=== PATIENT | female | born 1960 | race African-American/Black ===

== ENCOUNTER → 2016-07-14 | Outpatient (CLI) | payer OTHER ==
[2016-03-03 13:55] VITALS: BP 136/98
[~2016-07-14] MED LIST: ALBU2.5V5 NEB; ALBU8.5H6 IH; ASPI-482 PO; Albuterol Sulfate NEB; BUDE10.2 IH; CYCL10TA2 PO; ESOM40CA PO; FAMO-63 PO; FLUC100T7 PO; FLUT16SP NS; FURO-69 PO; IPRA3AMP23 IH; LEVO500T38 PO; METR500T PO; MONT10TA6 PO; MULT-189 PO; NYST1000 SWSW; PANT20TA2 PO; PANT40GR PO; POTA10CA PO; PRED-220 PO; Polyethylene Glycol 3350 PO; SERT50TA PO; TIOT18CA IH
--- NOTE | 2016-07-14 13:15 | RAD ---
DATE: 07/14/16 EXAM: DIGITAL SCREEN BILAT W/CAD HISTORY: Routine screening COMPARISON: 07/12/15 This study was interpreted with the benefit of Computerized Aided Detection (CAD). TECHNIQUE: Routine CC and MLO views of both breasts are obtained. FINDINGS: The breast tissue density is [B ] . Scattered fibroglandular densities are seen. There are no dominant suspicious masses, suspicious microcalcifications or evidence of architectural distortion. Skin and nipples are intact IMPRESSION: Benign findings BI-RADS CATEGORY: 1 NEGATIVE RECOMMENDED FOLLOW-UP: 12M 12 MONTH FOLLOW-UP PQRS compliance statement: Patient information was entered into a reminder system with a target due date for the next mammogram. Mammography is a sensitive method for finding small breast cancers, but it does not detect them all and is not a substitute for careful clinical examination. A negative mammogram does not negate a clinically suspicious finding and should not result in delay in biopsying a clinically suspicious abnormality. "Our facility is accredited by the [employer] Mammography Program."
== END | disposition home or self-care (01) ==
LOC: MAMMO 08:31
PROVIDERS: ATTEND Family Medicine
DX: Z12.31 Encounter for screening mammogram for malignant neoplasm of breast (principal)
CPT/HCPCS: G0202; 77067

== ENCOUNTER → 2016-09-15 | Outpatient (CLI) | payer OTHER ==
[2016-03-03 13:55] VITALS: BP 136/98
[2016-09-15 13:26] LABS: BASO # 0.1 x10^3/uL (0.0-0.2); BASO % 1 % (0-3); EOS % 2 % (0-3); HEMATOCRIT 38.3 % (36.0-47.0); HEMOGLOBIN 12.3 g/dL (12.0-15.5); LYMPH # 2.4 x10^3/uL (1.0-4.8); LYMPH % 32 % (24-48); MEAN CORPUSCULAR HEMOGLOBIN 29 pg (25-35); MEAN CORPUSCULAR HGB CONC 32 g/dL (31-37); MEAN CORPUSCULAR VOLUME 91 fL (79-100); MONO % 11 % (0-9); NEUT % 55 % (31-73); PLATELET COUNT 225 x10^3/uL (140-400); RED BLOOD COUNT 4.23 x10^6/uL (3.50-5.40); RED CELL DISTRIBUTION WIDTH 14.4 % (11.5-14.5); WHITE BLOOD COUNT 7.5 x10^3/uL (4.0-11.0)
[2016-09-15 13:48] LABS: ALBUMIN 3.6 g/dL (3.4-5.0); ALBUMIN/GLOBULIN RATIO 0.9 (1.0-1.7); CALCIUM 9.2 mg/dL (8.5-10.1); CREATININE 0.8 mg/dL (0.6-1.0); GFR 89.1; POTASSIUM 3.6 mmol/L (3.5-5.1); TOTAL BILIRUBIN 0.2 mg/dL (0.2-1.0); TOTAL PROTEIN 7.5 g/dL (6.4-8.2)
--- NOTE | 2016-09-15 16:50 | RAD ---
Exam: PA and lateral chest radiograph History: Shortness of air, chest pain and cough for one week. Comparison: 09/11/2015. Findings: Cardiomediastinal silhouette is within normal limits for size. Bilateral lung orozco are free of focal infiltrate. No pleural effusion is seen. There is enlargement of the central pulmonary vasculature, suggesting changes of pulmonary hypertension. This is similar to previous study. Impression: 1. No acute cardiopulmonary process. 2. Suspect pulmonary hypertension.
== END | disposition home or self-care (01) ==
LOC: RAD 12:52
PROVIDERS: ATTEND Internal Medicine Pulmonary Disease
DX: R06.02 Shortness of breath (principal)
CPT/HCPCS: 36415; 71020; 80053; 85027

== ENCOUNTER → 2016-11-10 | Outpatient (CLI) | payer OTHER ==
[2016-03-03 13:55] VITALS: BP 136/98
[~2016-11-10] MED LIST changes: -NYST1000 SWSW; +NYST100054 SWSW; -POTA10CA PO; +POTASSIUM CHLO10 MEQ PO
[2016-11-10 11:21] LABS: ALBUMIN 3.6 g/dL (3.4-5.0); CREATININE 0.8 mg/dL (0.6-1.0); GFR 89.1; POTASSIUM 3.9 mmol/L (3.5-5.1); TOTAL BILIRUBIN 0.4 mg/dL (0.2-1.0); TOTAL PROTEIN 7.2 g/dL (6.4-8.2)
[2016-11-10 11:30] LABS: FREE T4 0.87 ng/dL (0.76-1.46)
== END | disposition home or self-care (01) ==
LOC: LAB 10:03
PROVIDERS: ATTEND Family Medicine
DX: R73.09 Other abnormal glucose (principal); R20.2 Paresthesia of skin; R79.89 Other specified abnormal findings of blood chemistry
CPT/HCPCS: 36415; 80053; 83036; 83735; 84439; 84443

== ENCOUNTER 2016-12-29 15:41 | Inpatient (IN) | payer OTHER ==
[~2016-12-29] VITALS: Ht 152.4 cm; Wt 69.0 kg
[~2016-12-29 15:41] MED LIST changes: -LEVO500T38 PO; +LEVO500T59 PO
--- NOTE | 2016-12-29 16:13 | PHYS DOC ---
Past Medical History Past Medical History: COPD Past Surgical History: Hysterectomy, Tonsillectomy, Other Additional Past Surgical Histo: HEART CATH,EXP SURG X4 Alcohol Use: None Drug Use: None Adult General Chief Complaint Chief Complaint: SHORTNESS OF BREATH HPI HPI Patient is a 56 year old -Citizen [place] female who presents with worsening shortness breath the last 2 weeks. She states now she gets up to walk she gets short of breath very easily. She states she has a nonproductive cough. She states that she also has nasal congestion or ear pressure. She denies any fevers or chills. She's been on oxygen 2 L at home and occasionally she raises up to 3 L when she needs it. She spoke to Dr. Carson's office who wanted her to be is seen in the ER. She denies any chest pain nausea vomiting. Review of Systems Review of Systems Constitutional: Denies fever or chills [] Eyes: Denies change in visual acuity, redness, or eye pain [] HENT: Denies nasal congestion or sore throat [] Respiratory: Denies cough, positive for shortness of breath [] Cardiovascular: No additional information not addressed in HPI [] GI: Denies abdominal pain, nausea, vomiting, bloody stools or diarrhea [] : Denies dysuria or hematuria [] Musculoskeletal: Denies back pain or joint pain [] Integument: Denies rash or skin lesions [] Neurologic: Denies headache, focal weakness or sensory changes [] Endocrine: Denies polyuria or polydipsia [] Current Medications Current Medications Current Medications Medications (Trade) Dose Ordered Sig/Umang Start Time Stop Time Status Last Admin Dose Admin Acetaminophen (Tylenol) 500 mg QID PRN 12/29/16 18:15 Albuterol/ Ipratropium (Duoneb) 3 ml RTQID 12/29/16 21:00 Aspirin (Ecotrin) 81 mg DAILY 12/30/16 09:00 Azithromycin 250 ml @ 250 mls/hr 1X ONCE 12/29/16 16:45 12/29/16 17:44 DC 12/29/16 16:48 250 MLS/HR Benzonatate (Tessalon Perle) 100 mg TID 12/29/16 21:00 Famotidine (Pepcid) 20 mg DAILY 12/30/16 09:00 Fentanyl Citrate (Fentanyl 2ml Vial) 50 mcg PRN Q2HR PRN 12/29/16 18:15 Furosemide (Lasix) 20 mg DAILY 12/30/16 09:00 Guaifenesin (Robitussin Dm) 10 ml PRN Q6HRS PRN 12/29/16 18:15 Methylprednisolone Sodium Succinate (SOLU-Medrol 40MG VIAL) 40 mg TID 12/29/16 21:00 Methylprednisolone Sodium Succinate (SOLU-Medrol 125MG VIAL) 125 mg 1X ONCE 12/29/16 16:45 12/29/16 16:46 DC 12/29/16 16:48 125 MG Montelukast Sodium (Singulair) 10 mg DAILY 12/30/16 09:00 Ondansetron HCl (Zofran) 4 mg PRN Q6HRS PRN 12/29/16 18:15 Pantoprazole Sodium (Protonix) 40 mg DAILYAC 12/30/16 07:30 Potassium Chloride (Klor-Con) 10 meq [id number] 12/30/16 08:00 Sertraline HCl (Zoloft) 50 mg DAILY 12/30/16 09:00 Allergies Allergies Allergies Coded Allergies Type Severity Reaction Last Updated Verified Penicillins Allergy Intermediate rash 03/03/16 Yes morphine Allergy Intermediate Rash-PERCOCET OK 03/03/16 Yes Physical Exam Physical Exam Constitutional: Well developed, well nourished, no acute distress, non-toxic appearance. [] HENT: Normocephalic, atraumatic, bilateral external ears normal, oropharynx moist, no oral exudates, nose normal. [] Eyes: PERRLA, EOMI, conjunctiva normal, no discharge. [] Neck: Normal range of motion, no tenderness, supple, no stridor. [] Cardiovascular:Heart rate regular rhythm, no murmur [] Lungs & Thorax: Bilateral breath sounds increased with mild expiratory wheezes bilaterally Abdomen: Bowel sounds normal, soft, no tenderness, no masses, no pulsatile masses. [] Skin: Warm, dry, no erythema, no rash. [] Back: No tenderness, no CVA tenderness. [] Extremities: No tenderness, no cyanosis, no clubbing, ROM intact, no edema. [] Neurologic: Alert and oriented X 3, normal motor function, normal sensory function, no focal deficits noted. [] Psychologic: Affect normal, judgement normal, mood normal. [] Current Patient Data Vital Signs Vital Signs Date Time Temp Pulse Resp B/P (MAP) Pulse Ox O2 Delivery O2 Flow Rate FiO2 12/29/16 16:59 96 Nasal Cannula 2.0 12/29/16 15:48 98.6 87 24 153/96 (115) 98.6 Lab Values Laboratory Tests Test 12/29/16 16:00 White Blood Count 6.3 x10^3/uL (4.0-11.0) Red Blood Count 4.35 x10^6/uL (3.50-5.40) Hemoglobin 13.0 g/dL (12.0-15.5) Hematocrit 39.6 % (36.0-47.0) Mean Corpuscular Volume 91 fL (79-100) Mean Corpuscular Hemoglobin 30 pg (25-35) Mean Corpuscular Hemoglobin Concent 33 g/dL (31-37) Red Cell Distribution Width 13.9 % (11.5-14.5) Platelet Count 247 x10^3/uL (140-400) Neutrophils (%) (Auto) 71 % (31-73) Lymphocytes (%) (Auto) 20 % (24-48) L Monocytes (%) (Auto) 8 % (0-9) Eosinophils (%) (Auto) 1 % (0-3) Basophils (%) (Auto) 1 % (0-3) Neutrophils # (Auto) 4.4 x10^3uL (1.8-7.7) Lymphocytes # (Auto) 1.3 x10^3/uL (1.0-4.8) Monocytes # (Auto) 0.5 x10^3/uL (0.0-1.1) Eosinophils # (Auto) 0.1 x10^3/uL (0.0-0.7) Basophils # (Auto) 0.0 x10^3/uL (0.0-0.2) Prothrombin Time 12.4 SEC (11.7-14.0) Prothrombin Time INR 1.0 (0.8-1.1) Sodium Level 143 mmol/L (136-145) Potassium Level 4.2 mmol/L (3.5-5.1) Chloride Level 104 mmol/L (98-107) Carbon Dioxide Level 32 mmol/L (21-32) Anion Gap 7 (6-14) Blood Urea Nitrogen 7 mg/dL (7-20) Creatinine 0.7 mg/dL (0.6-1.0) Estimated GFR (Cockcroft-Gault) 104.0 Glucose Level 103 mg/dL (70-99) H Calcium Level 9.1 mg/dL (8.5-10.1) Magnesium Level 1.9 mg/dL (1.8-2.4) Total Bilirubin 0.4 mg/dL (0.2-1.0) Direct Bilirubin 0.1 mg/dL (0.0-0.2) Aspartate Amino Transferase (AST) 38 U/L (15-37) H Alanine Aminotransferase (ALT) 29 U/L (14-59) Alkaline Phosphatase 75 U/L (46-116) Creatine Kinase 366 U/L (26-192) H Creatine Kinase MB (Mass) 4.8 ng/mL (0.0-3.6) H Creatine Kinase MB Relative Index 1.3 % (0-4) Troponin I Quantitative 0.058 ng/mL (0.000-0.055) VB-Yul-[id number]-Type Natriuretic Peptide 241 pg/mL (0-124) H Total Protein 7.6 g/dL (6.4-8.2) Albumin 3.9 g/dL (3.4-5.0) Lipase 370 U/L (73-393) Thyroid Stimulating Hormone (TSH) 0.555 uIU/mL (0.358-3.74) Laboratory Tests 12/29/16 16:00 Laboratory Tests 12/29/16 16:00 EKG EKG EKG shows sinus rhythm with a rate of 82 bpm, left axis deviation, no ST elevations appreciated, or T-wave inversions, QTC 438 ms, as interpreted by me. Radiology/Procedures Radiology/Procedures [facility] [address] [place] [address] IMAGING REPORT Signed PATIENT: EDDI QUEZADA ACCOUNT: [id number] : 1960 LOCATION: ER AGE: 56 SEX: F EXAM STATUS: REG ER ORD. PHYSICIAN: FABRIZIO GRIFFIN MD REASON: soa PROCEDURE: PORTABLE CHEST 1V INDICATION: soa COMPARISON: 09/15/2016 FINDINGS: Single view of chest obtained. No definite focal airspace consolidation. There is repeat demonstration of enlargement of the bilateral pulmonary hilum. Calcific atherosclerosis. IMPRESSION: No definite focal airspace consolidation. Repeat demonstration of enlargement of the bilateral pulmonary hilum. Correlate for possible causes such as pulmonary artery hypertension. DICTATED and SIGNED BY: GERGORIO BELLA MD DATE: 12/29/16 [id number] CC: FABRIZIO GRIFFIN MD; CIERRA ORTEGA MD ~ Impressions: COPD exacerbation Elevated troponin Course & Med Decision Making Course & Med Decision Making Pertinent Labs and Imaging studies reviewed. (See chart for details) Patient comes in with worsening dyspnea on exertion, she denies any chest pain, chest x-ray labs are nonacute except for her troponin being slightly elevated. She is received aspirin, Solu-Medrol, azithromycin and DuoNeb nebs. She's being admitted to hospitalists with consults to palm and etiology of which I spoke to both of them. She is in stable condition at this time. Dragon Disclaimer Dragon Disclaimer This electronic medical record was generated, in whole or in part, using a voice recognition dictation system. Departure Departure Impression: Primary Impression: COPD exacerbation Additional Impression: Elevated troponin Disposition: ADMITTED INPATIENT Admitting Physician: Rachael Salas Condition: STABLE Referrals: CIERRA ORTEGA MD (PCP) Problem Qualifiers FABRIZIO GRIFFIN MD Dec 29, 2016 16:12
[2016-12-29 16:30] LABS: BASO % 1 % (0-3); EOS % 1 % (0-3); HEMATOCRIT 39.6 % (36.0-47.0); LYMPH # 1.3 x10^3/uL (1.0-4.8); LYMPH % 20 % (24-48); MEAN CORPUSCULAR HEMOGLOBIN 30 pg (25-35); MEAN CORPUSCULAR HGB CONC 33 g/dL (31-37); MEAN CORPUSCULAR VOLUME 91 fL (79-100); MONO % 8 % (0-9); NEUT % 71 % (31-73); PLATELET COUNT 247 x10^3/uL (140-400); RED BLOOD COUNT 4.35 x10^6/uL (3.50-5.40); RED CELL DISTRIBUTION WIDTH 13.9 % (11.5-14.5); WHITE BLOOD COUNT 6.3 x10^3/uL (4.0-11.0)
--- NOTE | 2016-12-29 16:35 | RAD ---
INDICATION: soa COMPARISON: 09/15/2016 FINDINGS: Single view of chest obtained. No definite focal airspace consolidation. There is repeat demonstration of enlargement of the bilateral pulmonary hilum. Calcific atherosclerosis. IMPRESSION: No definite focal airspace consolidation. Repeat demonstration of enlargement of the bilateral pulmonary hilum. Correlate for possible causes such as pulmonary artery hypertension.
[2016-12-29 16:40] LABS: PROTHROMBIN TIME PATIENT 12.4 SEC (11.7-14.0)
[2016-12-29 16:44] LABS: CALCIUM 9.1 mg/dL (8.5-10.1); CREATININE 0.7 mg/dL (0.6-1.0); POTASSIUM 4.2 mmol/L (3.5-5.1)
[2016-12-29] MEDS ORDERED: AZITHRMYCN 500MG IVPB FOR OMNI 250 ML IV ONE (16:45)
[2016-12-29] MEDS ORDERED: methylPREDNISolone SOD SUCC PF 125 MG/2 ML VIAL. IV ONE (16:45)
[2016-12-29] MEDS ORDERED: IPRATRPIUM/ALBUTEROL 0.5/2.5MG 3 ML NEBU. NEB ONE (16:45)
[2016-12-29 17:00] LABS: CKMB MASS 4.8 ng/mL (0.0-3.6)
--- NOTE | 2016-12-29 17:13 | EKG ---
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
[2016-12-29 17:53] LABS: ALBUMIN 3.9 g/dL (3.4-5.0); DIRECT BILIRUBIN 0.1 mg/dL (0.0-0.2); MAGNESIUM 1.9 mg/dL (1.8-2.4); TOTAL BILIRUBIN 0.4 mg/dL (0.2-1.0); TOTAL PROTEIN 7.6 g/dL (6.4-8.2)
--- NOTE | 2016-12-29 18:05 | PDOC1 ---
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 She motions in her throat/chest area. Trops 0.05. COPD is rather advanced, known to our practice, cardiac cath back then showed no CAD. CXR shows enhanced PA knob, we see in PAH pts which I suspect she has from her advanced COPD, CXR neg for infiltrates, wheezing appreciable, got solu, steroids and azithromycin. Admitted henceforth. Claims compliance to home inhalers, not skipping a dose. Past Medical History Cardiovascular: HTN Pulmonary: Bronchitis, COPD Psych: Depression Past Surgical History Past Surgical History: Other ([facility]) Family History Family History: Hypertension Social History Smoke: Quit ALCOHOL: none Drugs: None Current Medications Current Medications Current Medications Albuterol/ Ipratropium (Duoneb) 3 ml 1X ONCE NEB Last administered on 16:57; Start 12/29/16 at 16:45; Stop 12/29/16 at 16:46; Status DC Azithromycin 250 ml @ 250 mls/hr 1X ONCE IV Last administered on 12/29/16 16 :48; Start 12/29/16 at 16:45; Stop 12/29/16 at 17:44; Status DC Methylprednisolone Sodium Succinate (SOLU-Medrol 125MG VIAL) 125 mg 1X ONCE IV Last administered on 12/29/16 16:48; Start 12/29/16 at 16:45; Stop 12/29/16 at 16:46; Status DC Active Scripts Active Potassium Chloride 10 Meq Capsule.er 1 Cap PO DAILY Diflucan (Fluconazole) 100 Mg Tablet 200 Mg PO DAILY Fluticasone Propionate Nasal Cass (Fluticasone Propionate) 1 Cass Cass 2 Cass NS DAILY Nystatin 5 Ml Oral.susp 5 Ml SWSW [id number] 7 Days Prednisone 10 Mg Tablet 10 Mg PO DAILY 4 by mouth daily for 3 days then 3 by mouth daily for 3 days then 2 by mouth daily for 3 days then 1 by mouth daily for 3 days Zoloft (Sertraline Hcl) 50 Mg Tablet 50 Mg PO DAILY Reported Albuterol Sulfate Neb Soln (Albuterol Sulfate) 2.5 Mg/3 Ml Vial.neb 2.5 Mg NEB Q4HRS PRN Nexium Capsule (Esomeprazole Magnesium) 40 Mg Capsule.dr 40 Mg PO DAILYAC Singulair Tablet (Montelukast Sodium) 10 Mg Tablet 1 Tab PO DAILY Lasix (Furosemide) 20 Mg Tablet 1 Tab PO DAILY Symbicort 160-4.5 Mcg Inhaler (Budesonide/Formoterol Fumarate) 10.2 Gm Hfa.aer.ad 10.2 Gm IH BID Albuterol Sulfate Hfa Inhaler (Albuterol Sulfate) 8.5 Gm Hfa.aer.ad 8.5 Gm IH PRN Duoneb 0.5 Mg-3 Mg/3 Ml Soln (Ipratropium/Albuterol Sulfate) 3 Ml Ampul.neb 3 Ml IH QID Aspir 81 (Aspirin) 81 Mg Tablet. 81 Mg PO DAILY Allergies Allergies: Coded Allergies: Penicillins (Verified Allergy, Intermediate, rash, 03/03/16) morphine (Verified Allergy, Intermediate, Rash-PERCOCET OK, 03/03/16) ROS Review of System as per HPI,. all else 14 pt reviewed, neg Physical Exam General: Alert, Oriented X3, Cooperative, No acute distress HEENT: Atraumatic, PERRLA Lungs: Normal air movement, Other (wheezing bilateral, anterior and posterior, normal air entry) Heart: S1S2, RRR, no thrills, no rubs Cardiovascular: S1, S2 Breasts: Normal Abdomen: Normal bowel sounds, Soft, No tenderness, No hepatosplenomegaly, No masses Male Genitals Exam: normal genitalia, normal prostate Rectal Exam: not examined PELVIC: Nml ext genitalia Extremities: No clubbing, No cyanosis, No edema, Normal pulses, No tenderness/ swelling Skin: No rashes, No breakdown, No significant lesion Neuro: Normal gait, Normal speech, Strength at 5/5 X4 ext, Normal tone, Sensation intact, Cranial nerves 3-12 NL, Reflexes 2+ Psych/Mental Status: Mental status NL, Mood NL Vitals Vitals Vital Signs Date Time Temp Pulse Resp B/P (MAP) Pulse Ox O2 Delivery O2 Flow Rate FiO2 12/29/16 16:59 96 Nasal Cannula 2.0 12/29/16 15:48 98.6 87 24 153/96 (115) 98.6 Labs Labs Laboratory Tests Test 12/29/16 16:00 White Blood Count 6.3 x10^3/uL (4.0-11.0) Red Blood Count 4.35 x10^6/uL (3.50-5.40) Hemoglobin 13.0 g/dL (12.0-15.5) Hematocrit 39.6 % (36.0-47.0) Mean Corpuscular Volume 91 fL (79-100) Mean Corpuscular Hemoglobin 30 pg (25-35) Mean Corpuscular Hemoglobin Concent 33 g/dL (31-37) Red Cell Distribution Width 13.9 % (11.5-14.5) Platelet Count 247 x10^3/uL (140-400) Neutrophils (%) (Auto) 71 % (31-73) Lymphocytes (%) (Auto) 20 % (24-48) Monocytes (%) (Auto) 8 % (0-9) Eosinophils (%) (Auto) 1 % (0-3) Basophils (%) (Auto) 1 % (0-3) Neutrophils # (Auto) 4.4 x10^3uL (1.8-7.7) Lymphocytes # (Auto) 1.3 x10^3/uL (1.0-4.8) Monocytes # (Auto) 0.5 x10^3/uL (0.0-1.1) Eosinophils # (Auto) 0.1 x10^3/uL (0.0-0.7) Basophils # (Auto) 0.0 x10^3/uL (0.0-0.2) Prothrombin Time 12.4 SEC (11.7-14.0) Prothromb Time International Ratio 1.0 (0.8-1.1) Sodium Level 143 mmol/L (136-145) Potassium Level 4.2 mmol/L (3.5-5.1) Chloride Level 104 mmol/L (98-107) Carbon Dioxide Level 32 mmol/L (21-32) Anion Gap 7 (6-14) Blood Urea Nitrogen 7 mg/dL (7-20) Creatinine 0.7 mg/dL (0.6-1.0) Estimated GFR (Cockcroft-Gault) 104.0 Glucose Level 103 mg/dL (70-99) Calcium Level 9.1 mg/dL (8.5-10.1) Magnesium Level 1.9 mg/dL (1.8-2.4) Total Bilirubin 0.4 mg/dL (0.2-1.0) Direct Bilirubin 0.1 mg/dL (0.0-0.2) Aspartate Amino Transf (AST/SGOT) 38 U/L (15-37) Alanine Aminotransferase (ALT/SGPT) 29 U/L (14-59) Alkaline Phosphatase 75 U/L (46-116) Creatine Kinase 366 U/L (26-192) Creatine Kinase MB (Mass) 4.8 ng/mL (0.0-3.6) Creatine Kinase MB Relative Index 1.3 % (0-4) Troponin I Quantitative 0.058 ng/mL (0.000-0.055) [id number]-Type Natriuretic Peptide 241 pg/mL (0-124) Total Protein 7.6 g/dL (6.4-8.2) Albumin 3.9 g/dL (3.4-5.0) Lipase 370 U/L (73-393) Thyroid Stimulating Hormone (TSH) 0.555 uIU/mL (0.358-3.74) Laboratory Tests Test 12/29/16 16:00 White Blood Count 6.3 x10^3/uL (4.0-11.0) Red Blood Count 4.35 x10^6/uL (3.50-5.40) Hemoglobin 13.0 g/dL (12.0-15.5) Hematocrit 39.6 % (36.0-47.0) Mean Corpuscular Volume 91 fL (79-100) Mean Corpuscular Hemoglobin 30 pg (25-35) Mean Corpuscular Hemoglobin Concent 33 g/dL (31-37) Red Cell Distribution Width 13.9 % (11.5-14.5) Platelet Count 247 x10^3/uL (140-400) Neutrophils (%) (Auto) 71 % (31-73) Lymphocytes (%) (Auto) 20 % (24-48) Monocytes (%) (Auto) 8 % (0-9) Eosinophils (%) (Auto) 1 % (0-3) Basophils (%) (Auto) 1 % (0-3) Neutrophils # (Auto) 4.4 x10^3uL (1.8-7.7) Lymphocytes # (Auto) 1.3 x10^3/uL (1.0-4.8) Monocytes # (Auto) 0.5 x10^3/uL (0.0-1.1) Eosinophils # (Auto) 0.1 x10^3/uL (0.0-0.7) Basophils # (Auto) 0.0 x10^3/uL (0.0-0.2) Prothrombin Time 12.4 SEC (11.7-14.0) Prothromb Time International Ratio 1.0 (0.8-1.1) Sodium Level 143 mmol/L (136-145) Potassium Level 4.2 mmol/L (3.5-5.1) Chloride Level 104 mmol/L (98-107) Carbon Dioxide Level 32 mmol/L (21-32) Anion Gap 7 (6-14) Blood Urea Nitrogen 7 mg/dL (7-20) Creatinine 0.7 mg/dL (0.6-1.0) Estimated GFR (Cockcroft-Gault) 104.0 Glucose Level 103 mg/dL (70-99) Calcium Level 9.1 mg/dL (8.5-10.1) Magnesium Level 1.9 mg/dL (1.8-2.4) Total Bilirubin 0.4 mg/dL (0.2-1.0) Direct Bilirubin 0.1 mg/dL (0.0-0.2) Aspartate Amino Transf (AST/SGOT) 38 U/L (15-37) Alanine Aminotransferase (ALT/SGPT) 29 U/L (14-59) Alkaline Phosphatase 75 U/L (46-116) Creatine Kinase 366 U/L (26-192) Creatine Kinase MB (Mass) 4.8 ng/mL (0.0-3.6) Creatine Kinase MB Relative Index 1.3 % (0-4) Troponin I Quantitative 0.058 ng/mL (0.000-0.055) CF-Jlf-F-Type Natriuretic Peptide 241 pg/mL (0-124) Total Protein 7.6 g/dL (6.4-8.2) Albumin 3.9 g/dL (3.4-5.0) Lipase 370 U/L (73-393) Thyroid Stimulating Hormone (TSH) 0.555 uIU/mL (0.358-3.74) VTE Prophylaxis Ordered VTE Prophylaxis Devices: Yes VTE Pharmacological Prophylaxi: Yes Assessment/Plan Assessment/Plan 1. Acute COPD exacerbation, severe 2. Acute bronchitis in an ex smoker 3. Pulmonary arterial HTN sec to above 4. Trop leak 5. Depression NOS 6. Dysphagia PLAN: Admit 2 MN NEbs, cough med, pulmo consult, steroids, empiric antibiotics? TRend trop CArds consult Will consult GI re dysphagia sxs - had egd yrs ago with Criss George, maybe gastritis/esophagitis - Seen at ER SUE MARINO MD Dec 29, 2016 18:05
[2016-12-29] MEDS ORDERED: ONDANSETRON PF 4 MG/2 ML VIAL. IV PRN ×2 (18:15→18:30)
[2016-12-29] MEDS ORDERED: fentaNYL PF VIAL 100 MCG/2 ML VIAL IV PRN (18:15)
[2016-12-29] MEDS ORDERED: ALBUTEROL SULFATE 2.5 MG/3 ML NEBU. NEB PRN (18:30)
[2016-12-29 18:58] LABS: BARBITURATES NEG (NEG); BENZODIAZEPINES NEG (NEG); CANNABINOIDS NEG (NEG); COCAINE NEG (NEG); METHADONE NEG (NEG); OPIATES NEG (NEG); PHENCYCLIDINE NEG (NEG)
[2016-12-29 19:00] VITALS: BP 138/91
[2016-12-29] MEDS ORDERED: ASPIRIN 325 MG TABLET PO ONE (19:45)
[2016-12-29] MEDS: methylPREDNISolone SOD SUCC PF 40 MG/ML VIAL. IV SCH (20:45)
[2016-12-29] MEDS: BENZONATATE 100 MG CAPSULE. PO SCH (20:45)
[2016-12-29] MEDS: IPRATRPIUM/ALBUTEROL 0.5/2.5MG 3 ML NEBU. NEB SCH (20:55)
--- NOTE | 2016-12-29 23:00 | ACF ---
Admission Forms Criteria COPD Clinical Indications for Admission to Inpatient Care (Place 'X' for any and all applicable criteria): Admission is indicated for ANY ONE of the following (1)(2)(3): [X]I. Acute exacerbation by high-risk comorbidity (e.g., pneumonia, dysrhythmia, heart failure, pleural effusion, pneumothorax) or severe underlying COPD (e.g., steroid dependent) [ ]II. Inpatient admission required rather than observation care (see Chronic Obstructive Pulmonary Disease: Observation Care) because of ANY ONE of the following: [ ]a) New or pre-existing signs or symptoms of COPD (eg, dyspnea or Tachypnea at rest or with minimal activity) that persist despite outpatient and observation care treatment [ ]b) New-onset hypoxemia (room air SaO2 less than 90%, PO2 less than 60 mm Hg (8.0 kPa)) that persists despite outpatient and observation care treatment [ ]c) Worsening of pre-existing hypoxemia (eg, new or increased requirement for supplemental oxygen to maintain oxygenation at baseline level) that persists despite outpatient and observation care treatment, with oxygen treatment needs performable only in acute inpatient setting [ ]d) Hypercarbia (PCO2 greater than 40 mm Hg (5.3 kPa))-induced respiratory acidosis (pH less than 7.35) that persists despite outpatient and observation care treatment [ ]e) Supplemental oxygen or respiratory treatments for over 24 hours that are performable only in acute inpatient setting [ ]f) Chest tube placement with active evacuation (e.g., suction, drainage) (5) [ ]g) Other condition, treatment or monitoring requiring inpatient admission [ ]III. Planned invasive surgical or diagnostic procedures requiring acute- care hospitalization [ ]IV. Acute respiratory failure (e.g., uncompensated hypercarbia, severe hypoxemia) [ ]V. Severe comorbid condition (e.g., severe steroid myopathy, acute vertebral fracture) that has acutely worsened pulmonary function [ ]. Confusion state, lethargy, obtundation, stupor or coma Extended stay beyond goal length of stay may be needed for (31)(32): [ ]a ) Respiratory Failure. [ ]b) Severe or persisting hypoxemia or hypercarbia [ ]c) Severe or persistent dyspnea [ ]d) Comorbidities (e.g. chronic heart failure, atrial fibrillation with rapid response, pneumonia) [ ]e) Malnutrition The original [facility] content created by [facility] has been revised. The portions of the content which have been revised are identified through the use of italic text or in bold, and [facility] has neither reviewed nor approved the modified material. All other unmodified content is copyright [facility]. Please see references footnoted in the original [facility] edition 2016 Admission Criteria Met?: Yes FRANKY JOHNSON Dec 29, 2016 23:00
[2016-12-29 23:30] VITALS: BP 134/80
[2016-12-30] MEDS: guaiFENesin DM 200MG/20MG 10 ML SYRUP PO PRN ×2 (00:05→17:15)
[2016-12-30 02:41] LABS: BASO % 0 % (0-3); EOS % 0 % (0-3); HEMATOCRIT 37.2 % (36.0-47.0); HEMOGLOBIN 12.1 g/dL (12.0-15.5); LYMPH # 0.7 x10^3/uL (1.0-4.8); LYMPH % 15 % (24-48); MEAN CORPUSCULAR HEMOGLOBIN 30 pg (25-35); MEAN CORPUSCULAR HGB CONC 33 g/dL (31-37); MEAN CORPUSCULAR VOLUME 91 fL (79-100); MONO % 2 % (0-9); NEUT % 83 % (31-73); PLATELET COUNT 221 x10^3/uL (140-400); RED BLOOD COUNT 4.07 x10^6/uL (3.50-5.40); RED CELL DISTRIBUTION WIDTH 13.7 % (11.5-14.5); WHITE BLOOD COUNT 4.7 x10^3/uL (4.0-11.0)
[2016-12-30 02:55] LABS: CALCIUM 8.7 mg/dL (8.5-10.1); CREATININE 0.8 mg/dL (0.6-1.0); GFR 89.1; POTASSIUM 4.4 mmol/L (3.5-5.1)
[2016-12-30 03:15] VITALS: BP 141/94
[2016-12-30 07:00] VITALS: BP 159/99
--- NOTE | 2016-12-30 07:26 | PDOC2 ---
CONSULT Date of Consult Date of Consult DATE: 12/30/16 TIME: 07:23 Past Medical History Cardiovascular: HTN Pulmonary: Bronchitis, COPD Psych: Depression Past Surgical History Past Surgical History: Other ([facility] -clean) Family History Family History: Hypertension Social History Quit ALCOHOL: none Drugs: None Current Problem List Problem List Problems Medical Problems: (1) Elevated troponin Status: Acute Current Medications Current Medications Current Medications Albuterol/ Ipratropium (Duoneb) 3 ml 1X ONCE NEB Last administered on 16:57; Start 12/29/16 at 16:45; Stop 12/29/16 at 16:46; Status DC Azithromycin 250 ml @ 250 mls/hr 1X ONCE IV Last administered on 12/29/16 16 :48; Start 12/29/16 at 16:45; Stop 12/29/16 at 17:44; Status DC Methylprednisolone Sodium Succinate (SOLU-Medrol 125MG VIAL) 125 mg 1X ONCE IV Last administered on 12/29/16 16:48; Start 12/29/16 at 16:45; Stop 12/29/16 at 16:46; Status DC Aspirin (Ecotrin) 81 mg DAILY PO ; Start 12/30/16 at 09:00 Furosemide (Lasix) 20 mg DAILY PO ; Start 12/30/16 at 09:00 Montelukast Sodium (Singulair) 10 mg DAILY PO ; Start 12/30/16 at 09:00 Sertraline HCl (Zoloft) 50 mg DAILY PO ; Start 12/30/16 at 09:00 Pantoprazole Sodium (Protonix) 40 mg DAILYAC PO ; Start 12/30/16 at 07:30 Potassium Chloride (Klor-Con) 10 meq DAILYWBKFT PO ; Start 12/30/16 at 08:00 Benzonatate (Tessalon Perle) 100 mg TID PO Last administered on 12/29/16 20:45 ; Start 12/29/16 at 21:00 Guaifenesin (Robitussin Dm) 10 ml PRN Q6HRS PRN PO COUGH Last administered on 00:05; Start 12/29/16 at 18:15 Methylprednisolone Sodium Succinate (SOLU-Medrol 40MG VIAL) 40 mg TID IV Last administered on 12/29/16 20:45; Start 12/29/16 at 21:00 Albuterol/ Ipratropium (Duoneb) 3 ml RTQID NEB Last administered on 12/29/16t 20:55; Start 12/29/16 at 21:00 Famotidine (Pepcid) 20 mg DAILY PO ; Start 12/30/16 at 09:00 Fentanyl Citrate (Fentanyl 2ml Vial) 50 mcg PRN Q2HR PRN IV pain; Start at 18:15 Ondansetron HCl (Zofran) 4 mg PRN Q6HRS PRN IV NAUSEA/VOMITING; Start 12/29/16 at 18:15 Acetaminophen (Tylenol) 500 mg QID PRN PO pain; Start 12/29/16 at 18:15 Ondansetron HCl (Zofran) 4 mg PRN Q8HRS PRN IV NAUSEA/VOMITING; Start 12/29/16 at 18:30; Stop 12/30/16 at 18:29 Albuterol Sulfate (Ventolin Neb Soln) 2.5 mg PRN Q6HRS PRN NEB SOA; Start 12/29 at 18:30 Aspirin (Kamala Aspirin) 325 mg 1X ONCE PO Last administered on 12/29/16 20:45 ; Start 12/29/16 at 19:45; Stop 12/29/16 at 19:46; Status DC Active Scripts Active Potassium Chloride 10 Meq Capsule.er 1 Cap PO DAILY Diflucan (Fluconazole) 100 Mg Tablet 200 Mg PO DAILY Fluticasone Propionate Nasal [place] (Fluticasone Propionate) 1 [place] 2 [place] NS DAILY Nystatin 5 Ml Oral.susp 5 Ml SWSW [id number] 7 Days Prednisone 10 Mg Tablet 10 Mg PO DAILY 4 by mouth daily for 3 days then 3 by mouth daily for 3 days then 2 by mouth daily for 3 days then 1 by mouth daily for 3 days Zoloft (Sertraline Hcl) 50 Mg Tablet 50 Mg PO DAILY Reported Albuterol Sulfate Neb Soln (Albuterol Sulfate) 2.5 Mg/3 Ml Vial.neb 2.5 Mg NEB Q4HRS PRN Nexium Capsule (Esomeprazole Magnesium) 40 Mg Capsule.dr 40 Mg PO DAILYAC Singulair Tablet (Montelukast Sodium) 10 Mg Tablet 1 Tab PO DAILY Lasix (Furosemide) 20 Mg Tablet 1 Tab PO DAILY Symbicort 160-4.5 Mcg Inhaler (Budesonide/Formoterol Fumarate) 10.2 Gm Hfa.aer.ad 10.2 Gm IH BID Albuterol Sulfate Hfa Inhaler (Albuterol Sulfate) 8.5 Gm Hfa.aer.ad 8.5 Gm IH PRN Duoneb 0.5 Mg-3 Mg/3 Ml Soln (Ipratropium/Albuterol Sulfate) 3 Ml Ampul.neb 3 Ml IH QID Aspir 81 (Aspirin) 81 Mg Tablet.dr 81 Mg PO DAILY Allergies Allergies: Coded Allergies: Penicillins (Verified Allergy, Intermediate, rash, 03/03/16) morphine (Verified Allergy, Intermediate, Rash-PERCOCET [place], 03/03/16) Vitals VITALS Vital Signs Date Time Temp Pulse Resp B/P (MAP) Pulse Ox O2 Delivery O2 Flow Rate FiO2 12/30/16 03:15 98.3 93 20 141/94 (110) 99 Nasal Cannula 3.0 98.3 Labs Labs Laboratory Tests Test 12/29/16 16:00 12/29/16 18:45 12/30/16 00:50 12/30/16 02:00 White Blood Count 6.3 x10^3/uL (4.0-11.0) 4.7 x10^3/uL (4.0-11.0) Red Blood Count 4.35 x10^6/uL (3.50-5.40) 4.07 x10^6/uL (3.50-5.40) Hemoglobin 13.0 g/dL (12.0-15.5) 12.1 g/dL (12.0-15.5) Hematocrit 39.6 % (36.0-47.0) 37.2 % (36.0-47.0) Mean Corpuscular Volume 91 fL (79-100) 91 fL (79-100) Mean Corpuscular Hemoglobin 30 pg (25-35) 30 pg (25-35) Mean Corpuscular Hemoglobin Concent 33 g/dL (31-37) 33 g/dL (31-37) Red Cell Distribution Width 13.9 % (11.5-14.5) 13.7 % (11.5-14.5) Platelet Count 247 x10^3/uL (140-400) 221 x10^3/uL (140-400) Neutrophils (%) (Auto) 71 % (31-73) 83 % (31-73) Lymphocytes (%) (Auto) 20 % (24-48) 15 % (24-48) Monocytes (%) (Auto) 8 % (0-9) 2 % (0-9) Eosinophils (%) (Auto) 1 % (0-3) 0 % (0-3) Basophils (%) (Auto) 1 % (0-3) 0 % (0-3) Neutrophils # (Auto) 4.4 x10^3uL (1.8-7.7) 3.9 x10^3uL (1.8-7.7) Lymphocytes # (Auto) 1.3 x10^3/uL (1.0-4.8) 0.7 x10^3/uL (1.0-4.8) Monocytes # (Auto) 0.5 x10^3/uL (0.0-1.1) 0.1 x10^3/uL (0.0-1.1) Eosinophils # (Auto) 0.1 x10^3/uL (0.0-0.7) 0.0 x10^3/uL (0.0-0.7) Basophils # (Auto) 0.0 x10^3/uL (0.0-0.2) 0.0 x10^3/uL (0.0-0.2) Prothrombin Time 12.4 SEC (11.7-14.0) Prothromb Time International Ratio 1.0 (0.8-1.1) Sodium Level 143 mmol/L (136-145) 144 mmol/L (136-145) Potassium Level 4.2 mmol/L (3.5-5.1) 4.4 mmol/L (3.5-5.1) Chloride Level 104 mmol/L (98-107) 106 mmol/L (98-107) Carbon Dioxide Level 32 mmol/L (21-32) 34 mmol/L (21-32) Anion Gap 7 (6-14) 4 (6-14) Blood Urea Nitrogen 7 mg/dL (7-20) 15 mg/dL (7-20) Creatinine 0.7 mg/dL (0.6-1.0) 0.8 mg/dL (0.6-1.0) Estimated GFR (Cockcroft-Gault) 104.0 89.1 Glucose Level 103 mg/dL (70-99) 181 mg/dL (70-99) Calcium Level 9.1 mg/dL (8.5-10.1) 8.7 mg/dL (8.5-10.1) Magnesium Level 1.9 mg/dL (1.8-2.4) Total Bilirubin 0.4 mg/dL (0.2-1.0) Direct Bilirubin 0.1 mg/dL (0.0-0.2) Aspartate Amino Transf (AST/SGOT) 38 U/L (15-37) Alanine Aminotransferase (ALT/SGPT) 29 U/L (14-59) Alkaline Phosphatase 75 U/L (46-116) Creatine Kinase 366 U/L (26-192) Creatine Kinase MB (Mass) 4.8 ng/mL (0.0-3.6) Creatine Kinase MB Relative Index 1.3 % (0-4) Troponin I Quantitative 0.058 ng/mL (0.000-0.055) 0.047 ng/mL (0.000-0.055) WN-Qbp-C-Type Natriuretic Peptide 241 pg/mL (0-124) Total Protein 7.6 g/dL (6.4-8.2) Albumin 3.9 g/dL (3.4-5.0) Lipase 370 U/L (73-393) Thyroid Stimulating Hormone (TSH) 0.555 uIU/mL (0.358-3.74) Urine Opiates Screen Neg (NEG) Urine Methadone Screen Neg (NEG) Urine Barbiturates Neg (NEG) Urine Phencyclidine Screen Neg (NEG) Urine Amphetamine/Methamphetamine Neg (NEG) Urine Benzodiazepines Screen Neg (NEG) Urine Cocaine Screen Neg (NEG) Urine Cannabinoids Screen Neg (NEG) Urine Ethyl Alcohol Neg (NEG) Laboratory Tests Test 12/29/16 16:00 12/29/16 18:45 12/30/16 00:50 12/30/16 02:00 White Blood Count 6.3 x10^3/uL (4.0-11.0) 4.7 x10^3/uL (4.0-11.0) Red Blood Count 4.35 x10^6/uL (3.50-5.40) 4.07 x10^6/uL (3.50-5.40) Hemoglobin 13.0 g/dL (12.0-15.5) 12.1 g/dL (12.0-15.5) Hematocrit 39.6 % (36.0-47.0) 37.2 % (36.0-47.0) Mean Corpuscular Volume 91 fL (79-100) 91 fL (79-100) Mean Corpuscular Hemoglobin 30 pg (25-35) 30 pg (25-35) Mean Corpuscular Hemoglobin Concent 33 g/dL (31-37) 33 g/dL (31-37) Red Cell Distribution Width 13.9 % (11.5-14.5) 13.7 % (11.5-14.5) Platelet Count 247 x10^3/uL (140-400) 221 x10^3/uL (140-400) Neutrophils (%) (Auto) 71 % (31-73) 83 % (31-73) Lymphocytes (%) (Auto) 20 % (24-48) 15 % (24-48) Monocytes (%) (Auto) 8 % (0-9) 2 % (0-9) Eosinophils (%) (Auto) 1 % (0-3) 0 % (0-3) Basophils (%) (Auto) 1 % (0-3) 0 % (0-3) Neutrophils # (Auto) 4.4 x10^3uL (1.8-7.7) 3.9 x10^3uL (1.8-7.7) Lymphocytes # (Auto) 1.3 x10^3/uL (1.0-4.8) 0.7 x10^3/uL (1.0-4.8) Monocytes # (Auto) 0.5 x10^3/uL (0.0-1.1) 0.1 x10^3/uL (0.0-1.1) Eosinophils # (Auto) 0.1 x10^3/uL (0.0-0.7) 0.0 x10^3/uL (0.0-0.7) Basophils # (Auto) 0.0 x10^3/uL (0.0-0.2) 0.0 x10^3/uL (0.0-0.2) Prothrombin Time 12.4 SEC (11.7-14.0) Prothromb Time International Ratio 1.0 (0.8-1.1) Sodium Level 143 mmol/L (136-145) 144 mmol/L (136-145) Potassium Level 4.2 mmol/L (3.5-5.1) 4.4 mmol/L (3.5-5.1) Chloride Level 104 mmol/L (98-107) 106 mmol/L (98-107) Carbon Dioxide Level 32 mmol/L (21-32) 34 mmol/L (21-32) Anion Gap 7 (6-14) 4 (6-14) Blood Urea Nitrogen 7 mg/dL (7-20) 15 mg/dL (7-20) Creatinine 0.7 mg/dL (0.6-1.0) 0.8 mg/dL (0.6-1.0) Estimated GFR (Cockcroft-Gault) 104.0 89.1 Glucose Level 103 mg/dL (70-99) 181 mg/dL (70-99) Calcium Level 9.1 mg/dL (8.5-10.1) 8.7 mg/dL (8.5-10.1) Magnesium Level 1.9 mg/dL (1.8-2.4) Total Bilirubin 0.4 mg/dL (0.2-1.0) Direct Bilirubin 0.1 mg/dL (0.0-0.2) Aspartate Amino Transf (AST/SGOT) 38 U/L (15-37) Alanine Aminotransferase (ALT/SGPT) 29 U/L (14-59) Alkaline Phosphatase 75 U/L (46-116) Creatine Kinase 366 U/L (26-192) Creatine Kinase MB (Mass) 4.8 ng/mL (0.0-3.6) Creatine Kinase MB Relative Index 1.3 % (0-4) Troponin I Quantitative 0.058 ng/mL (0.000-0.055) 0.047 ng/mL (0.000-0.055) MO-Esb-X-Type Natriuretic Peptide 241 pg/mL (0-124) Total Protein 7.6 g/dL (6.4-8.2) Albumin 3.9 g/dL (3.4-5.0) Lipase 370 U/L (73-393) Thyroid Stimulating Hormone (TSH) 0.555 uIU/mL (0.358-3.74) Urine Opiates Screen Neg (NEG) Urine Methadone Screen Neg (NEG) Urine Barbiturates Neg (NEG) Urine Phencyclidine Screen Neg (NEG) Urine Amphetamine/Methamphetamine Neg (NEG) Urine Benzodiazepines Screen Neg (NEG) Urine Cocaine Screen Neg (NEG) Urine Cannabinoids Screen Neg (NEG) Urine Ethyl Alcohol Neg (NEG) Assessment/Plan Assessment/Plan A/C RESP FAILURE AECOPD NON SPECIFIC BRONCHITIS ALLERGIES ELEVATED TROPONIN ANXIETY PLAN HOME OK BY ME IF CLEARED BY CARD 02 AVOID THE HEAT NEBS ALLERGIES MED ANXIETY PILLS GLENIS SCHWARTZ MD Dec 30, 2016 07:26
[2016-12-30] MEDS: IPRATRPIUM/ALBUTEROL 0.5/2.5MG 3 ML NEBU. NEB SCH ×4 (07:35→19:35)
[2016-12-30] MEDS ORDERED: DEXTROSE 50% 25 GM / 50ML DISP.SYRIN. IV PRN (09:00)
--- NOTE | 2016-12-30 09:07 | PDOC ---
PROGRESS NOTES Chief Complaint Chief Complaint COPD exacerbation ASSESSMENT AND PLAN: 1. COPD exacerbation: severe acute bronchitis. on steroids, nebs suppl O2, mucolytics, empiric azithro. Pulm consult 2. Pulmonary arterial HTN: 2/2 above 3. Elevated troponin: stable ~0.5 x2. no cardiac sx. suspect 2/2 (2.). cardiac consult 4. Hyperglycemia: no previous diagnosis. obtain HgbA1c, ISS 5. Dysphagia: GI consult 6. Depression NOS History of Present Illness History of Present Illness breathing much improved. no significant cough. Vitals Vitals Vital Signs Date Time Temp Pulse Resp B/P (MAP) Pulse Ox O2 Delivery O2 Flow Rate FiO2 12/30/16 07:37 97 Nasal Cannula 3.0 12/30/16 07:00 97.8 103 22 159/99 (119) 97.8 Physical Exam General: Alert, Oriented X3, Cooperative, No acute distress Heart: Regular rate Lungs: Other (occas wheeze) Abdomen: Normal bowel sounds, Soft, No tenderness, No hepatosplenomegaly, No masses Extremities: No clubbing, No cyanosis, No edema, Normal pulses, No tenderness/ swelling Skin: No rashes, No breakdown, No significant lesion Labs LABS Laboratory Tests Test 12/29/16 16:00 12/29/16 18:45 12/30/16 00:50 12/30/16 02:00 White Blood Count 6.3 x10^3/uL (4.0-11.0) 4.7 x10^3/uL (4.0-11.0) Red Blood Count 4.35 x10^6/uL (3.50-5.40) 4.07 x10^6/uL (3.50-5.40) Hemoglobin 13.0 g/dL (12.0-15.5) 12.1 g/dL (12.0-15.5) Hematocrit 39.6 % (36.0-47.0) 37.2 % (36.0-47.0) Mean Corpuscular Volume 91 fL (79-100) 91 fL (79-100) Mean Corpuscular Hemoglobin 30 pg (25-35) 30 pg (25-35) Mean Corpuscular Hemoglobin Concent 33 g/dL (31-37) 33 g/dL (31-37) Red Cell Distribution Width 13.9 % (11.5-14.5) 13.7 % (11.5-14.5) Platelet Count 247 x10^3/uL (140-400) 221 x10^3/uL (140-400) Neutrophils (%) (Auto) 71 % (31-73) 83 % (31-73) Lymphocytes (%) (Auto) 20 % (24-48) 15 % (24-48) Monocytes (%) (Auto) 8 % (0-9) 2 % (0-9) Eosinophils (%) (Auto) 1 % (0-3) 0 % (0-3) Basophils (%) (Auto) 1 % (0-3) 0 % (0-3) Neutrophils # (Auto) 4.4 x10^3uL (1.8-7.7) 3.9 x10^3uL (1.8-7.7) Lymphocytes # (Auto) 1.3 x10^3/uL (1.0-4.8) 0.7 x10^3/uL (1.0-4.8) Monocytes # (Auto) 0.5 x10^3/uL (0.0-1.1) 0.1 x10^3/uL (0.0-1.1) Eosinophils # (Auto) 0.1 x10^3/uL (0.0-0.7) 0.0 x10^3/uL (0.0-0.7) Basophils # (Auto) 0.0 x10^3/uL (0.0-0.2) 0.0 x10^3/uL (0.0-0.2) Prothrombin Time 12.4 SEC (11.7-14.0) Prothromb Time International Ratio 1.0 (0.8-1.1) Sodium Level 143 mmol/L (136-145) 144 mmol/L (136-145) Potassium Level 4.2 mmol/L (3.5-5.1) 4.4 mmol/L (3.5-5.1) Chloride Level 104 mmol/L (98-107) 106 mmol/L (98-107) Carbon Dioxide Level 32 mmol/L (21-32) 34 mmol/L (21-32) Anion Gap 7 (6-14) 4 (6-14) Blood Urea Nitrogen 7 mg/dL (7-20) 15 mg/dL (7-20) Creatinine 0.7 mg/dL (0.6-1.0) 0.8 mg/dL (0.6-1.0) Estimated GFR (Cockcroft-Gault) 104.0 89.1 Glucose Level 103 mg/dL (70-99) 181 mg/dL (70-99) Calcium Level 9.1 mg/dL (8.5-10.1) 8.7 mg/dL (8.5-10.1) Magnesium Level 1.9 mg/dL (1.8-2.4) Total Bilirubin 0.4 mg/dL (0.2-1.0) Direct Bilirubin 0.1 mg/dL (0.0-0.2) Aspartate Amino Transf (AST/SGOT) 38 U/L (15-37) Alanine Aminotransferase (ALT/SGPT) 29 U/L (14-59) Alkaline Phosphatase 75 U/L (46-116) Creatine Kinase 366 U/L (26-192) Creatine Kinase MB (Mass) 4.8 ng/mL (0.0-3.6) Creatine Kinase MB Relative Index 1.3 % (0-4) Troponin I Quantitative 0.058 ng/mL (0.000-0.055) 0.047 ng/mL (0.000-0.055) PN-Hlu-S-Type Natriuretic Peptide 241 pg/mL (0-124) Total Protein 7.6 g/dL (6.4-8.2) Albumin 3.9 g/dL (3.4-5.0) Lipase 370 U/L (73-393) Thyroid Stimulating Hormone (TSH) 0.555 uIU/mL (0.358-3.74) Urine Opiates Screen Neg (NEG) Urine Methadone Screen Neg (NEG) Urine Barbiturates Neg (NEG) Urine Phencyclidine Screen Neg (NEG) Urine Amphetamine/Methamphetamine Neg (NEG) Urine Benzodiazepines Screen Neg (NEG) Urine Cocaine Screen Neg (NEG) Urine Cannabinoids Screen Neg (NEG) Urine Ethyl Alcohol Neg (NEG) KIKA HOLCOMB MD Dec 30, 2016 09:07
[2016-12-30] MEDS: FUROSEMIDE 20 MG TABLET PO SCH (09:18)
[2016-12-30] MEDS: BENZONATATE 100 MG CAPSULE. PO SCH ×3 (09:19→20:31)
[2016-12-30] MEDS: MONTELUKAST SODIUM 10 MG TABLET. PO SCH (09:19)
[2016-12-30] MEDS: ASPIRIN ENTERIC COATED 81 MG TABLET.DR. PO SCH (09:19)
[2016-12-30] MEDS: FAMOTIDINE 20 MG TABLET. PO SCH (09:19)
[2016-12-30] MEDS: SERTRALINE 50 MG TABLET. PO SCH (09:19)
[2016-12-30] MEDS: POTASSIUM CHLORIDE 10 MEQ TABLET.ER. PO SCH (09:19)
[2016-12-30] MEDS: PANTOPRAZOLE 40 MG TABLET.DR. PO SCH (09:19)
[2016-12-30] MEDS: methylPREDNISolone SOD SUCC PF 40 MG/ML VIAL. IV SCH ×3 (09:20→20:31)
[2016-12-30] MEDS: INSULIN ASPART 300 UNITS/3 ML INSULN.PEN SQ SCH ×3 (10:16→17:00)
--- NOTE | 2016-12-30 10:57 | PDOC2 ---
GI CONSULT Reason For Consult: Dysphagia HPI: HPI: 56 y/o female admitted w/ COPD exacerbation, noted w/ elevated troponin, pulm and cardiology to see. GI asked to see re: dysphagia. She reports "swallowing hard" for ~6 months or so. Can occur daily, noted w/ solids and liquids. No regurg although "it feels like it might come up." No n/v, no abd pain, no reflux/heartburn, no diarrhea or constipation, no hematochezia or melena. Has been told she has reflux, on H2 viola and PPI daily. Note also takes prednisone, ASA, and diclofenac. GI workup at this facility as below, note barium swallow w/ tertiary contractions and reflux. Additionally has h/o diverticulitis. Per office records, h/o abdominal pain, PIPIDA w/ EF was normal in 2011. EGD [place] [address] Luis Gallagher showed grade 1 reflux esophagitis, H.pylori positive gastritis, and normal duodenum. She completed treatment for H. pylori. Colonoscopy [place] [address] Petty Coffey showed mild nonspecific erythema (biopsies unrevealing), advanced diverticular disease, adenomatous polyp, and hyperplastic polyp. PMH: PMH: HTN, COPD, pneumonia, SHANEL, GERD, diverticulitis, colon polyp, tonsillectomy, heart cath, hysterectomy FH: Family History: No pertinent hx Social History: Smoke: Quit ALCOHOL: none Drugs: None ROS: GEN: Denies fevers, chills, sweats HEENT: Denies blurred vision, sore throat CV: Denies chest pain RESP: +shortness of air, cough GI: Per HPI : Denies hematuria, dysuria ENDO: Denies weight changes NEURO: Denies confusion, dizziness MSK: Denies weakness, joint pain/swelling SKIN: Denies jaundice, pruritus Vitals: Vitals: Vital Signs Date Time Temp Pulse Resp B/P (MAP) Pulse Ox O2 Delivery O2 Flow Rate FiO2 12/30/16 07:37 97 Nasal Cannula 3.0 12/30/16 07:00 97.8 103 22 159/99 (119) 97.8 Labs: Labs: Laboratory Tests Test 12/29/16 16:00 12/29/16 18:45 12/30/16 00:50 12/30/16 02:00 White Blood Count 6.3 x10^3/uL (4.0-11.0) 4.7 x10^3/uL (4.0-11.0) Red Blood Count 4.35 x10^6/uL (3.50-5.40) 4.07 x10^6/uL (3.50-5.40) Hemoglobin 13.0 g/dL (12.0-15.5) 12.1 g/dL (12.0-15.5) Hematocrit 39.6 % (36.0-47.0) 37.2 % (36.0-47.0) Mean Corpuscular Volume 91 fL (79-100) 91 fL (79-100) Mean Corpuscular Hemoglobin 30 pg (25-35) 30 pg (25-35) Mean Corpuscular Hemoglobin Concent 33 g/dL (31-37) 33 g/dL (31-37) Red Cell Distribution Width 13.9 % (11.5-14.5) 13.7 % (11.5-14.5) Platelet Count 247 x10^3/uL (140-400) 221 x10^3/uL (140-400) Neutrophils (%) (Auto) 71 % (31-73) 83 % (31-73) Lymphocytes (%) (Auto) 20 % (24-48) 15 % (24-48) Monocytes (%) (Auto) 8 % (0-9) 2 % (0-9) Eosinophils (%) (Auto) 1 % (0-3) 0 % (0-3) Basophils (%) (Auto) 1 % (0-3) 0 % (0-3) Neutrophils # (Auto) 4.4 x10^3uL (1.8-7.7) 3.9 x10^3uL (1.8-7.7) Lymphocytes # (Auto) 1.3 x10^3/uL (1.0-4.8) 0.7 x10^3/uL (1.0-4.8) Monocytes # (Auto) 0.5 x10^3/uL (0.0-1.1) 0.1 x10^3/uL (0.0-1.1) Eosinophils # (Auto) 0.1 x10^3/uL (0.0-0.7) 0.0 x10^3/uL (0.0-0.7) Basophils # (Auto) 0.0 x10^3/uL (0.0-0.2) 0.0 x10^3/uL (0.0-0.2) Prothrombin Time 12.4 SEC (11.7-14.0) Prothromb Time International Ratio 1.0 (0.8-1.1) Sodium Level 143 mmol/L (136-145) 144 mmol/L (136-145) Potassium Level 4.2 mmol/L (3.5-5.1) 4.4 mmol/L (3.5-5.1) Chloride Level 104 mmol/L (98-107) 106 mmol/L (98-107) Carbon Dioxide Level 32 mmol/L (21-32) 34 mmol/L (21-32) Anion Gap 7 (6-14) 4 (6-14) Blood Urea Nitrogen 7 mg/dL (7-20) 15 mg/dL (7-20) Creatinine 0.7 mg/dL (0.6-1.0) 0.8 mg/dL (0.6-1.0) Estimated GFR (Cockcroft-Gault) 104.0 89.1 Glucose Level 103 mg/dL (70-99) 181 mg/dL (70-99) Calcium Level 9.1 mg/dL (8.5-10.1) 8.7 mg/dL (8.5-10.1) Magnesium Level 1.9 mg/dL (1.8-2.4) Total Bilirubin 0.4 mg/dL (0.2-1.0) Direct Bilirubin 0.1 mg/dL (0.0-0.2) Aspartate Amino Transf (AST/SGOT) 38 U/L (15-37) Alanine Aminotransferase (ALT/SGPT) 29 U/L (14-59) Alkaline Phosphatase 75 U/L (46-116) Creatine Kinase 366 U/L (26-192) Creatine Kinase MB (Mass) 4.8 ng/mL (0.0-3.6) Creatine Kinase MB Relative Index 1.3 % (0-4) Troponin I Quantitative 0.058 ng/mL (0.000-0.055) 0.047 ng/mL (0.000-0.055) XW-Xsr-Q-Type Natriuretic Peptide 241 pg/mL (0-124) Total Protein 7.6 g/dL (6.4-8.2) Albumin 3.9 g/dL (3.4-5.0) Lipase 370 U/L (73-393) Thyroid Stimulating Hormone (TSH) 0.555 uIU/mL (0.358-3.74) Urine Opiates Screen Neg (NEG) Urine Methadone Screen Neg (NEG) Urine Barbiturates Neg (NEG) Urine Phencyclidine Screen Neg (NEG) Urine Amphetamine/Methamphetamine Neg (NEG) Urine Benzodiazepines Screen Neg (NEG) Urine Cocaine Screen Neg (NEG) Urine Cannabinoids Screen Neg (NEG) Urine Ethyl Alcohol Neg (NEG) Test 12/30/16 09:05 12/30/16 09:51 Troponin I Quantitative 0.058 ng/mL (0.000-0.055) Glucose (Fingerstick) 189 mg/dL (70-99) Allergies: Coded Allergies: Penicillins (Verified Allergy, Intermediate, rash, 03/03/16) morphine (Verified Allergy, Intermediate, Rash-PERCOCET [place], 03/03/16) Medications: Current Medications Medications (Trade) Dose Ordered Sig/Umang Route PRN Reason Start Time Stop Time Status Last Admin Dose Admin Albuterol/ Ipratropium (Duoneb) 3 ml 1X ONCE NEB 12/29/16 16:45 12/29/16 16:46 DC 12/29/16 16:57 Azithromycin 250 ml @ 250 mls/hr 1X ONCE IV 12/29/16 16:45 12/29/16 17:44 DC 12/29/16 16:48 Methylprednisolone Sodium Succinate (SOLU-Medrol 125MG VIAL) 125 mg 1X ONCE IV 12/29/16 16:45 12/29/16 16:46 DC 12/29/16 16:48 Aspirin (Ecotrin) 81 mg DAILY PO 12/30/16 09:00 12/30/16 09:19 Furosemide (Lasix) 20 mg DAILY PO 12/30/16 09:00 12/30/16 09:18 Montelukast Sodium (Singulair) 10 mg DAILY PO 12/30/16 09:00 12/30/16 09:19 Sertraline HCl (Zoloft) 50 mg DAILY PO 12/30/16 09:00 12/30/16 09:19 Pantoprazole Sodium (Protonix) 40 mg DAILYAC PO 12/30/16 07:30 12/30/16 09:19 Potassium Chloride (Klor-Con) 10 meq DAILYWBKFT PO 12/30/16 08:00 12/30/16 09:19 Benzonatate (Tessalon Perle) 100 mg TID PO 12/29/16 21:00 12/30/16 09:19 Guaifenesin (Robitussin Dm) 10 ml PRN Q6HRS PRN PO COUGH 12/29/16 18:15 12/30/16 00:05 Methylprednisolone Sodium Succinate (SOLU-Medrol 40MG VIAL) 40 mg TID IV 12/29/16 21:00 12/30/16 09:20 Albuterol/ Ipratropium (Duoneb) 3 ml RTQID NEB 12/29/16 21:00 12/30/16 07:35 Famotidine (Pepcid) 20 mg DAILY PO 12/30/16 09:00 12/30/16 09:19 Aspirin (Kamala Aspirin) 325 mg 1X ONCE PO 12/29/16 19:45 12/29/16 19:46 DC 12/29/16 20:45 Insulin Aspart (NovoLOG) 0-5 UNITS TIDWMEALS SQ 12/30/16 09:30 12/30/16 10:16 Imaging: Imaging: CXR IMPRESSION: No definite focal airspace consolidation. Repeat demonstration of enlargement of the bilateral pulmonary hilum. Correlate for possible causes such as pulmonary artery hypertension. Abd US 2014 Impression: 1. Normal gallbladder without gallstones. 2. Liver within normal limits in appearance. 3. Bowel gas obscures the aorta, vena cava, pancreas and spleen. Barium Swallow 2016 Impression: Tertiary contractions with few episodes of reflux through the gastroesophageal junction. A/P CTA 2016 IMPRESSION: 1. Moderate aortoiliac calcific plaquing without evidence of high-grade stenosis. 2. 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 UGI w/ SBFT 2012 IMPRESSION: No significant upper GI or small bowel abnormality is detected. PE: GEN: NAD HEENT: Atraumatic, PERRL LUNGS: crackles, nasal cannula HEART: RRR ABD: NABS, S/ND, epigastric discomfort EXTREMITY: No edema SKIN: No rashes, no jaundice NEURO/PSYCH: A & O 3 A/P: A/P: COPD exacerbation, elevated troponin, hyperglycemia -per pulm, cardio, primary Dysphagia -h/o this, solids and liquids -barium swallow w/ tertiary contractions and reflux GERD -on H2 viola and PPI, controlled -last EGD 2014 -has epigastric tenderness on exam, h/o abd pain per office records w/ previous workup CRC screen, h/o colon polyps -last colonoscopy 2014 -- Continue workup/treatment per pulm and cardio. Dysphagia likely 2/2 presbyesophagus, unlikely EGD w/ dilation would help. Regardless, poor endoscopy candidate currently. Continue PPI, particularly w/ use of NSAID and prednisone. DENY MONTESINOS Dec 30, 2016 10:57
[2016-12-30 11:00] VITALS: BP 154/93
--- NOTE | 2016-12-30 13:56 | PDOC2 ---
CONSULT Date of Consult Date of Consult DATE: 12/30/16 TIME: 13:49 Reason for Consult Reason for Consult: Copd Exacerbation Referring Physician Referring Physician: Rachael Salas MD Identification/Chief Complaint Chief Complaint Dyspnea Problems: Source Source: Patient History of Present Illness Reason for Visit: Ms Stevens is a 56 yr old female who presents with acute exacerbation of her copd. The patient has been having progressive shortness of breath over the last two weeks, accompanied by a dry cough. She doesn't report having had any chest pain. Per patient, this is her third copd exacerbation. Currently the patient is lying comfortably in bed, with O2. Past Medical History Cardiovascular: HTN Pulmonary: Bronchitis, COPD Psych: Depression Past Surgical History Past Surgical History: Other ([facility]) Family History Family History: Hypertension Social History Quit ALCOHOL: none Drugs: None Current Problem List Problem List Problems Medical Problems: (1) Elevated troponin Status: Acute Current Medications Current Medications Current Medications Albuterol/ Ipratropium (Duoneb) 3 ml 1X ONCE NEB Last administered on 16:57; Start 12/29/16 at 16:45; Stop 12/29/16 at 16:46; Status DC Azithromycin 250 ml @ 250 mls/hr 1X ONCE IV Last administered on 12/29/16 16 :48; Start 12/29/16 at 16:45; Stop 12/29/16 at 17:44; Status DC Methylprednisolone Sodium Succinate (SOLU-Medrol 125MG VIAL) 125 mg 1X ONCE IV Last administered on 12/29/16 16:48; Start 12/29/16 at 16:45; Stop 12/29/16 at 16:46; Status DC Aspirin (Ecotrin) 81 mg DAILY PO Last administered on 12/30/16 09:19; Start at 09:00 Furosemide (Lasix) 20 mg DAILY PO Last administered on 12/30/16 09:18; Start 12/30/16 at 09:00 Montelukast Sodium (Singulair) 10 mg DAILY PO Last administered on 12/30/16 09 :19; Start 12/30/16 at 09:00 Sertraline HCl (Zoloft) 50 mg DAILY PO Last administered on 12/30/16 09:19; Start 12/30/16 at 09:00 Pantoprazole Sodium (Protonix) 40 mg DAILYAC PO Last administered on 12/30/16 09:19; Start 12/30/16 at 07:30 Potassium Chloride (Klor-Con) 10 meq DAILYWBKFT PO Last administered on 09:19; Start 12/30/16 at 08:00 Benzonatate (Tessalon Perle) 100 mg TID PO Last administered on 12/30/16 13:20 ; Start 12/29/16 at 21:00 Guaifenesin (Robitussin Dm) 10 ml PRN Q6HRS PRN PO COUGH Last administered on 00:05; Start 12/29/16 at 18:15 Methylprednisolone Sodium Succinate (SOLU-Medrol 40MG VIAL) 40 mg TID IV Last administered on 12/30/16 13:20; Start 12/29/16 at 21:00 Albuterol/ Ipratropium (Duoneb) 3 ml RTQID NEB Last administered on 12/30/16 12:00; Start 12/29/16 at 21:00 Famotidine (Pepcid) 20 mg DAILY PO Last administered on 12/30/16 09:19; Start 12/30/16 at 09:00 Fentanyl Citrate (Fentanyl 2ml Vial) 50 mcg PRN Q2HR PRN IV pain; Start at 18:15 Ondansetron HCl (Zofran) 4 mg PRN Q6HRS PRN IV NAUSEA/VOMITING; Start 12/29/16 at 18:15 Acetaminophen (Tylenol) 500 mg QID PRN PO pain; Start 12/29/16 at 18:15 Ondansetron HCl (Zofran) 4 mg PRN Q8HRS PRN IV NAUSEA/VOMITING; Start 12/29/16 at 18:30; Stop 12/30/16 at 18:29 Albuterol Sulfate (Ventolin Neb Soln) 2.5 mg PRN Q6HRS PRN NEB SOA; Start 12/29 at 18:30 Aspirin (Kamala Aspirin) 325 mg 1X ONCE PO Last administered on 12/29/16 20:45 ; Start 12/29/16 at 19:45; Stop 12/29/16 at 19:46; Status DC Insulin Aspart (NovoLOG) 0-5 UNITS TIDWMEALS SQ Last administered on 12/30/16t 10:16; Start 12/30/16 at 09:30 Dextrose (Dextrose 50%-Water Syringe) 12.5 gm PRN Q15MIN PRN IV SEE COMMENTS; Start 12/30/16 at 09:00 Active Scripts Active Potassium Chloride 10 Meq Capsule.er 1 Cap PO DAILY Diflucan (Fluconazole) 100 Mg Tablet 200 Mg PO DAILY Fluticasone Propionate Nasal [place] (Fluticasone Propionate) 1 [place] 2 [place] NS DAILY Nystatin 5 Ml Oral.susp 5 Ml SWSW [id number] Days Prednisone 10 Mg Tablet 10 Mg PO DAILY 4 by mouth daily for 3 days then 3 by mouth daily for 3 days then 2 by mouth daily for 3 days then 1 by mouth daily for 3 days Zoloft (Sertraline Hcl) 50 Mg Tablet 50 Mg PO DAILY Reported Albuterol Sulfate Neb Soln (Albuterol Sulfate) 2.5 Mg/3 Ml Vial.neb 2.5 Mg NEB Q4HRS PRN Nexium Capsule (Esomeprazole Magnesium) 40 Mg Capsule. 40 Mg PO DAILYAC Singulair Tablet (Montelukast Sodium) 10 Mg Tablet 1 Tab PO DAILY Lasix (Furosemide) 20 Mg Tablet 1 Tab PO DAILY Symbicort 160-4.5 Mcg Inhaler (Budesonide/Formoterol Fumarate) 10.2 Gm Hfa.aer.ad 10.2 Gm IH BID Albuterol Sulfate Hfa Inhaler (Albuterol Sulfate) 8.5 Gm Hfa.aer.ad 8.5 Gm IH PRN Duoneb 0.5 Mg-3 Mg/3 Ml Soln (Ipratropium/Albuterol Sulfate) 3 Ml Ampul.neb 3 Ml IH QID Aspir 81 (Aspirin) 81 Mg Tablet. 81 Mg PO DAILY Allergies Allergies: Coded Allergies: Penicillins (Verified Allergy, Intermediate, rash, 03/03/16) morphine (Verified Allergy, Intermediate, Rash-PERCOCET [place], 03/03/16) ROS Gastrointestinal: Yes Abdominal Pain (midepigastric (chronic)) Physical Exam General: Alert, No acute distress Lungs: Other (b/l expiratory wheezes) Heart: Regular rate (and rhythm), Normal S1, Normal S2 Abdomen: Other (tenderness on palpation of midepigastrium) Extremities: Normal pulses (2/4 radial b/l) Vitals VITALS Vital Signs Date Time Temp Pulse Resp B/P (MAP) Pulse Ox O2 Delivery O2 Flow Rate FiO2 12/30/16 12:00 Nasal Cannula 2.0 12/30/16 11:00 98.5 97 20 154/93 (113) 93 98.5 Labs Labs Laboratory Tests Test 12/29/16 16:00 12/29/16 18:45 12/30/16 00:50 12/30/16 02:00 White Blood Count 6.3 x10^3/uL (4.0-11.0) 4.7 x10^3/uL (4.0-11.0) Red Blood Count 4.35 x10^6/uL (3.50-5.40) 4.07 x10^6/uL (3.50-5.40) Hemoglobin 13.0 g/dL (12.0-15.5) 12.1 g/dL (12.0-15.5) Hematocrit 39.6 % (36.0-47.0) 37.2 % (36.0-47.0) Mean Corpuscular Volume 91 fL (79-100) 91 fL (79-100) Mean Corpuscular Hemoglobin 30 pg (25-35) 30 pg (25-35) Mean Corpuscular Hemoglobin Concent 33 g/dL (31-37) 33 g/dL (31-37) Red Cell Distribution Width 13.9 % (11.5-14.5) 13.7 % (11.5-14.5) Platelet Count 247 x10^3/uL (140-400) 221 x10^3/uL (140-400) Neutrophils (%) (Auto) 71 % (31-73) 83 % (31-73) Lymphocytes (%) (Auto) 20 % (24-48) 15 % (24-48) Monocytes (%) (Auto) 8 % (0-9) 2 % (0-9) Eosinophils (%) (Auto) 1 % (0-3) 0 % (0-3) Basophils (%) (Auto) 1 % (0-3) 0 % (0-3) Neutrophils # (Auto) 4.4 x10^3uL (1.8-7.7) 3.9 x10^3uL (1.8-7.7) Lymphocytes # (Auto) 1.3 x10^3/uL (1.0-4.8) 0.7 x10^3/uL (1.0-4.8) Monocytes # (Auto) 0.5 x10^3/uL (0.0-1.1) 0.1 x10^3/uL (0.0-1.1) Eosinophils # (Auto) 0.1 x10^3/uL (0.0-0.7) 0.0 x10^3/uL (0.0-0.7) Basophils # (Auto) 0.0 x10^3/uL (0.0-0.2) 0.0 x10^3/uL (0.0-0.2) Prothrombin Time 12.4 SEC (11.7-14.0) Prothromb Time International Ratio 1.0 (0.8-1.1) Sodium Level 143 mmol/L (136-145) 144 mmol/L (136-145) Potassium Level 4.2 mmol/L (3.5-5.1) 4.4 mmol/L (3.5-5.1) Chloride Level 104 mmol/L (98-107) 106 mmol/L (98-107) Carbon Dioxide Level 32 mmol/L (21-32) 34 mmol/L (21-32) Anion Gap 7 (6-14) 4 (6-14) Blood Urea Nitrogen 7 mg/dL (7-20) 15 mg/dL (7-20) Creatinine 0.7 mg/dL (0.6-1.0) 0.8 mg/dL (0.6-1.0) Estimated GFR (Cockcroft-Gault) 104.0 89.1 Glucose Level 103 mg/dL (70-99) 181 mg/dL (70-99) Calcium Level 9.1 mg/dL (8.5-10.1) 8.7 mg/dL (8.5-10.1) Magnesium Level 1.9 mg/dL (1.8-2.4) Total Bilirubin 0.4 mg/dL (0.2-1.0) Direct Bilirubin 0.1 mg/dL (0.0-0.2) Aspartate Amino Transf (AST/SGOT) 38 U/L (15-37) Alanine Aminotransferase (ALT/SGPT) 29 U/L (14-59) Alkaline Phosphatase 75 U/L (46-116) Creatine Kinase 366 U/L (26-192) Creatine Kinase MB (Mass) 4.8 ng/mL (0.0-3.6) Creatine Kinase MB Relative Index 1.3 % (0-4) Troponin I Quantitative 0.058 ng/mL (0.000-0.055) 0.047 ng/mL (0.000-0.055) DC-Uxu-V-Type Natriuretic Peptide 241 pg/mL (0-124) Total Protein 7.6 g/dL (6.4-8.2) Albumin 3.9 g/dL (3.4-5.0) Lipase 370 U/L (73-393) Thyroid Stimulating Hormone (TSH) 0.555 uIU/mL (0.358-3.74) Urine Opiates Screen Neg (NEG) Urine Methadone Screen Neg (NEG) Urine Barbiturates Neg (NEG) Urine Phencyclidine Screen Neg (NEG) Urine Amphetamine/Methamphetamine Neg (NEG) Urine Benzodiazepines Screen Neg (NEG) Urine Cocaine Screen Neg (NEG) Urine Cannabinoids Screen Neg (NEG) Urine Ethyl Alcohol Neg (NEG) Test 12/30/16 09:05 12/30/16 09:51 12/30/16 11:39 Troponin I Quantitative 0.058 ng/mL (0.000-0.055) Glucose (Fingerstick) 189 mg/dL (70-99) 113 mg/dL (70-99) Laboratory Tests Test 12/29/16 16:00 12/29/16 18:45 12/30/16 00:50 12/30/16 02:00 White Blood Count 6.3 x10^3/uL (4.0-11.0) 4.7 x10^3/uL (4.0-11.0) Red Blood Count 4.35 x10^6/uL (3.50-5.40) 4.07 x10^6/uL (3.50-5.40) Hemoglobin 13.0 g/dL (12.0-15.5) 12.1 g/dL (12.0-15.5) Hematocrit 39.6 % (36.0-47.0) 37.2 % (36.0-47.0) Mean Corpuscular Volume 91 fL (79-100) 91 fL (79-100) Mean Corpuscular Hemoglobin 30 pg (25-35) 30 pg (25-35) Mean Corpuscular Hemoglobin Concent 33 g/dL (31-37) 33 g/dL (31-37) Red Cell Distribution Width 13.9 % (11.5-14.5) 13.7 % (11.5-14.5) Platelet Count 247 x10^3/uL (140-400) 221 x10^3/uL (140-400) Neutrophils (%) (Auto) 71 % (31-73) 83 % (31-73) Lymphocytes (%) (Auto) 20 % (24-48) 15 % (24-48) Monocytes (%) (Auto) 8 % (0-9) 2 % (0-9) Eosinophils (%) (Auto) 1 % (0-3) 0 % (0-3) Basophils (%) (Auto) 1 % (0-3) 0 % (0-3) Neutrophils # (Auto) 4.4 x10^3uL (1.8-7.7) 3.9 x10^3uL (1.8-7.7) Lymphocytes # (Auto) 1.3 x10^3/uL (1.0-4.8) 0.7 x10^3/uL (1.0-4.8) Monocytes # (Auto) 0.5 x10^3/uL (0.0-1.1) 0.1 x10^3/uL (0.0-1.1) Eosinophils # (Auto) 0.1 x10^3/uL (0.0-0.7) 0.0 x10^3/uL (0.0-0.7) Basophils # (Auto) 0.0 x10^3/uL (0.0-0.2) 0.0 x10^3/uL (0.0-0.2) Prothrombin Time 12.4 SEC (11.7-14.0) Prothromb Time International Ratio 1.0 (0.8-1.1) Sodium Level 143 mmol/L (136-145) 144 mmol/L (136-145) Potassium Level 4.2 mmol/L (3.5-5.1) 4.4 mmol/L (3.5-5.1) Chloride Level 104 mmol/L (98-107) 106 mmol/L (98-107) Carbon Dioxide Level 32 mmol/L (21-32) 34 mmol/L (21-32) Anion Gap 7 (6-14) 4 (6-14) Blood Urea Nitrogen 7 mg/dL (7-20) 15 mg/dL (7-20) Creatinine 0.7 mg/dL (0.6-1.0) 0.8 mg/dL (0.6-1.0) Estimated GFR (Cockcroft-Gault) 104.0 89.1 Glucose Level 103 mg/dL (70-99) 181 mg/dL (70-99) Calcium Level 9.1 mg/dL (8.5-10.1) 8.7 mg/dL (8.5-10.1) Magnesium Level 1.9 mg/dL (1.8-2.4) Total Bilirubin 0.4 mg/dL (0.2-1.0) Direct Bilirubin 0.1 mg/dL (0.0-0.2) Aspartate Amino Transf (AST/SGOT) 38 U/L (15-37) Alanine Aminotransferase (ALT/SGPT) 29 U/L (14-59) Alkaline Phosphatase 75 U/L (46-116) Creatine Kinase 366 U/L (26-192) Creatine Kinase MB (Mass) 4.8 ng/mL (0.0-3.6) Creatine Kinase MB Relative Index 1.3 % (0-4) Troponin I Quantitative 0.058 ng/mL (0.000-0.055) 0.047 ng/mL (0.000-0.055) QS-Aob-N-Type Natriuretic Peptide 241 pg/mL (0-124) Total Protein 7.6 g/dL (6.4-8.2) Albumin 3.9 g/dL (3.4-5.0) Lipase 370 U/L (73-393) Thyroid Stimulating Hormone (TSH) 0.555 uIU/mL (0.358-3.74) Urine Opiates Screen Neg (NEG) Urine Methadone Screen Neg (NEG) Urine Barbiturates Neg (NEG) Urine Phencyclidine Screen Neg (NEG) Urine Amphetamine/Methamphetamine Neg (NEG) Urine Benzodiazepines Screen Neg (NEG) Urine Cocaine Screen Neg (NEG) Urine Cannabinoids Screen Neg (NEG) Urine Ethyl Alcohol Neg (NEG) Test 12/30/16 09:05 12/30/16 09:51 12/30/16 11:39 Troponin I Quantitative 0.058 ng/mL (0.000-0.055) Glucose (Fingerstick) 189 mg/dL (70-99) 113 mg/dL (70-99) Assessment/Plan Assessment/Plan Ms Stevens is a 56 yr old who presents with copd exacerbation 1) COPD - continue symptomatic care 2) heart ischemia - mildly elevated cardiac enzymes most likely due to insufficient oxygen to tissues due to COPD. this is ischemia of hypoxia. Thank you for allowing me to participate in the care of this patient. BING GAMBLE MD Dec 30, 2016 13:55
[2016-12-30 15:00] VITALS: BP 151/81
[2016-12-30 19:00] VITALS: BP 133/89
[2016-12-30 23:51] VITALS: BP 142/93
[2016-12-31] MEDS: ACETAMINOPHEN 500 MG TABLET PO PRN (00:16)
[2016-12-31] MEDS: guaiFENesin DM 200MG/20MG 10 ML SYRUP PO PRN ×2 (00:16→21:21)
[2016-12-31 03:00] VITALS: BP 131/89
[2016-12-31 07:00] VITALS: BP 134/78
[2016-12-31] MEDS: INSULIN ASPART 300 UNITS/3 ML INSULN.PEN SQ SCH ×3 (08:00→17:00)
[2016-12-31] MEDS: IPRATRPIUM/ALBUTEROL 0.5/2.5MG 3 ML NEBU. NEB SCH ×4 (08:15→19:38)
[2016-12-31] MEDS: FAMOTIDINE 20 MG TABLET. PO SCH (08:37)
[2016-12-31] MEDS: methylPREDNISolone SOD SUCC PF 40 MG/ML VIAL. IV SCH ×3 (08:37→21:20)
[2016-12-31] MEDS: ASPIRIN ENTERIC COATED 81 MG TABLET.DR. PO SCH (08:38)
[2016-12-31] MEDS: PANTOPRAZOLE 40 MG TABLET.DR. PO SCH (08:38)
[2016-12-31] MEDS: BENZONATATE 100 MG CAPSULE. PO SCH ×3 (08:38→21:21)
[2016-12-31] MEDS: MONTELUKAST SODIUM 10 MG TABLET. PO SCH (08:38)
[2016-12-31] MEDS: POTASSIUM CHLORIDE 10 MEQ TABLET.ER. PO SCH (08:38)
[2016-12-31] MEDS: SERTRALINE 50 MG TABLET. PO SCH (08:39)
[2016-12-31] MEDS: FUROSEMIDE 20 MG TABLET PO SCH (08:40)
--- NOTE | 2016-12-31 09:16 | PDOC ---
PROGRESS NOTES Subjective Subjective Ms Stevens continues to have some shortness of breath, with mild epigastric tenderness. She was sitting up in bed eating this AM. Objective Objective Vital Signs Date Time Temp Pulse Resp B/P (MAP) Pulse Ox O2 Delivery O2 Flow Rate FiO2 12/31/16 07:00 98.5 78 20 134/78 (96) 98 Nasal Cannula 3.0 98.5 Intake and Output 12/31/16 07:00 Intake Total 1680 ml Balance 1680 ml Intake Oral 1680 ml # Voids 9 Physical Exam Heart: Regular rate (and rhythm), Normal S1, Normal S2 Extremities: Normal pulses (2/4 radial b/l) General: Alert Lungs: Other (b/l expiratory wheezes) Assessment Assessment Ms Stevens is a 56 yr old who presents with copd exacerbation 1) COPD - continue symptomatic care 2) heart ischemia - mildly elevated cardiac enzymes most likely due to insufficient oxygen to tissues due to COPD. this is ischemia of hypoxia. Problems Medical Problems: (1) Elevated troponin Status: Acute Comment Review of Relevant I have reviewed the following items paulette (where applicable) has been applied. Labs Laboratory Tests Test 12/29/16 16:00 12/29/16 18:45 12/30/16 00:50 12/30/16 02:00 White Blood Count 6.3 x10^3/uL (4.0-11.0) 4.7 x10^3/uL (4.0-11.0) Red Blood Count 4.35 x10^6/uL (3.50-5.40) 4.07 x10^6/uL (3.50-5.40) Hemoglobin 13.0 g/dL (12.0-15.5) 12.1 g/dL (12.0-15.5) Hematocrit 39.6 % (36.0-47.0) 37.2 % (36.0-47.0) Mean Corpuscular Volume 91 fL (79-100) 91 fL (79-100) Mean Corpuscular Hemoglobin 30 pg (25-35) 30 pg (25-35) Mean Corpuscular Hemoglobin Concent 33 g/dL (31-37) 33 g/dL (31-37) Red Cell Distribution Width 13.9 % (11.5-14.5) 13.7 % (11.5-14.5) Platelet Count 247 x10^3/uL (140-400) 221 x10^3/uL (140-400) Neutrophils (%) (Auto) 71 % (31-73) 83 % (31-73) Lymphocytes (%) (Auto) 20 % (24-48) 15 % (24-48) Monocytes (%) (Auto) 8 % (0-9) 2 % (0-9) Eosinophils (%) (Auto) 1 % (0-3) 0 % (0-3) Basophils (%) (Auto) 1 % (0-3) 0 % (0-3) Neutrophils # (Auto) 4.4 x10^3uL (1.8-7.7) 3.9 x10^3uL (1.8-7.7) Lymphocytes # (Auto) 1.3 x10^3/uL (1.0-4.8) 0.7 x10^3/uL (1.0-4.8) Monocytes # (Auto) 0.5 x10^3/uL (0.0-1.1) 0.1 x10^3/uL (0.0-1.1) Eosinophils # (Auto) 0.1 x10^3/uL (0.0-0.7) 0.0 x10^3/uL (0.0-0.7) Basophils # (Auto) 0.0 x10^3/uL (0.0-0.2) 0.0 x10^3/uL (0.0-0.2) Prothrombin Time 12.4 SEC (11.7-14.0) Prothromb Time International Ratio 1.0 (0.8-1.1) Sodium Level 143 mmol/L (136-145) 144 mmol/L (136-145) Potassium Level 4.2 mmol/L (3.5-5.1) 4.4 mmol/L (3.5-5.1) Chloride Level 104 mmol/L (98-107) 106 mmol/L (98-107) Carbon Dioxide Level 32 mmol/L (21-32) 34 mmol/L (21-32) Anion Gap 7 (6-14) 4 (6-14) Blood Urea Nitrogen 7 mg/dL (7-20) 15 mg/dL (7-20) Creatinine 0.7 mg/dL (0.6-1.0) 0.8 mg/dL (0.6-1.0) Estimated GFR (Cockcroft-Gault) 104.0 89.1 Glucose Level 103 mg/dL (70-99) 181 mg/dL (70-99) Calcium Level 9.1 mg/dL (8.5-10.1) 8.7 mg/dL (8.5-10.1) Magnesium Level 1.9 mg/dL (1.8-2.4) Total Bilirubin 0.4 mg/dL (0.2-1.0) Direct Bilirubin 0.1 mg/dL (0.0-0.2) Aspartate Amino Transf (AST/SGOT) 38 U/L (15-37) Alanine Aminotransferase (ALT/SGPT) 29 U/L (14-59) Alkaline Phosphatase 75 U/L (46-116) Creatine Kinase 366 U/L (26-192) Creatine Kinase MB (Mass) 4.8 ng/mL (0.0-3.6) Creatine Kinase MB Relative Index 1.3 % (0-4) Troponin I Quantitative 0.058 ng/mL (0.000-0.055) 0.047 ng/mL (0.000-0.055) FZ-Ylf-[id number]-Type Natriuretic Peptide 241 pg/mL (0-124) Total Protein 7.6 g/dL (6.4-8.2) Albumin 3.9 g/dL (3.4-5.0) Lipase 370 U/L (73-393) Thyroid Stimulating Hormone (TSH) 0.555 uIU/mL (0.358-3.74) Urine Opiates Screen Neg (NEG) Urine Methadone Screen Neg (NEG) Urine Barbiturates Neg (NEG) Urine Phencyclidine Screen Neg (NEG) Urine Amphetamine/Methamphetamine Neg (NEG) Urine Benzodiazepines Screen Neg (NEG) Urine Cocaine Screen Neg (NEG) Urine Cannabinoids Screen Neg (NEG) Urine Ethyl Alcohol Neg (NEG) Hemoglobin A1c 5.4 % (4.8-5.6) Test 12/30/16 09:05 12/30/16 09:51 12/30/16 11:39 12/30/16 16:57 Troponin I Quantitative 0.058 ng/mL (0.000-0.055) Glucose (Fingerstick) 189 mg/dL (70-99) 113 mg/dL (70-99) 140 mg/dL (70-99) Test 12/31/16 07:28 Glucose (Fingerstick) 123 mg/dL (70-99) Laboratory Tests Test 12/30/16 09:51 12/30/16 11:39 12/30/16 16:57 12/31/16 07:28 Glucose (Fingerstick) 189 mg/dL (70-99) 113 mg/dL (70-99) 140 mg/dL (70-99) 123 mg/dL (70-99) Medications Current Medications Albuterol/ Ipratropium (Duoneb) 3 ml 1X ONCE NEB Last administered on 16:57; Start 12/29/16 at 16:45; Stop 12/29/16 at 16:46; Status DC Azithromycin 250 ml @ 250 mls/hr 1X ONCE IV Last administered on 12/29/16 16 :48; Start 12/29/16 at 16:45; Stop 12/29/16 at 17:44; Status DC Methylprednisolone Sodium Succinate (SOLU-Medrol 125MG VIAL) 125 mg 1X ONCE IV Last administered on 12/29/16 16:48; Start 12/29/16 at 16:45; Stop 12/29/16 at 16:46; Status DC Aspirin (Ecotrin) 81 mg DAILY PO Last administered on 12/31/16 08:38; Start at 09:00 Furosemide (Lasix) 20 mg DAILY PO Last administered on 12/31/16 08:40; Start 12/30/16 at 09:00 Montelukast Sodium (Singulair) 10 mg DAILY PO Last administered on 12/31/16 08 :38; Start 12/30/16 at 09:00 Sertraline HCl (Zoloft) 50 mg DAILY PO Last administered on 12/31/16 08:39; Start 12/30/16 at 09:00 Pantoprazole Sodium (Protonix) 40 mg DAILYAC PO Last administered on 12/31/16 08:38; Start 12/30/16 at 07:30 Potassium Chloride (Klor-Con) 10 meq DAILYWBKFT PO Last administered on 08:38; Start 12/30/16 at 08:00 Benzonatate (Tessalon Perle) 100 mg TID PO Last administered on 12/31/16 08:38 ; Start 12/29/16 at 21:00 Guaifenesin (Robitussin Dm) 10 ml PRN Q6HRS PRN PO COUGH Last administered on 00:16; Start 12/29/16 at 18:15 Methylprednisolone Sodium Succinate (SOLU-Medrol 40MG VIAL) 40 mg TID IV Last administered on 12/31/16 08:37; Start 12/29/16 at 21:00 Albuterol/ Ipratropium (Duoneb) 3 ml RTQID NEB Last administered on 12/30/16 19:35; Start 12/29/16 at 21:00 Famotidine (Pepcid) 20 mg DAILY PO Last administered on 12/31/16 08:37; Start 12/30/16 at 09:00 Fentanyl Citrate (Fentanyl 2ml Vial) 50 mcg PRN Q2HR PRN IV pain; Start at 18:15 Ondansetron HCl (Zofran) 4 mg PRN Q6HRS PRN IV NAUSEA/VOMITING; Start 12/29/16 at 18:15 Acetaminophen (Tylenol) 500 mg QID PRN PO pain Last administered on 12/31/16 00:16; Start 12/29/16 at 18:15 Ondansetron HCl (Zofran) 4 mg PRN Q8HRS PRN IV NAUSEA/VOMITING; Start 12/29/16 at 18:30; Stop 12/30/16 at 18:29; Status DC Albuterol Sulfate (Ventolin Neb Soln) 2.5 mg PRN Q6HRS PRN NEB SOA; Start 12/29 at 18:30 Aspirin (Kamala Aspirin) 325 mg 1X ONCE PO Last administered on 12/29/16 20:45 ; Start 12/29/16 at 19:45; Stop 12/29/16 at 19:46; Status DC Insulin Aspart (NovoLOG) 0-5 UNITS TIDWMEALS SQ Last administered on 12/30/16 10:16; Start 12/30/16 at 09:30 Dextrose (Dextrose 50%-Water Syringe) 12.5 gm PRN Q15MIN PRN IV SEE COMMENTS; Start 12/30/16 at 09:00 Active Scripts Active Potassium Chloride 10 Meq Capsule.er 1 Cap PO DAILY Diflucan (Fluconazole) 100 Mg Tablet 200 Mg PO DAILY Fluticasone Propionate Nasal [place] (Fluticasone Propionate) 1 [place] 2 [place] NS DAILY Nystatin 5 Ml Oral.susp 5 Ml SWSW [id number] 7 Days Prednisone 10 Mg Tablet 10 Mg PO DAILY 4 by mouth daily for 3 days then 3 by mouth daily for 3 days then 2 by mouth daily for 3 days then 1 by mouth daily for 3 days Zoloft (Sertraline Hcl) 50 Mg Tablet 50 Mg PO DAILY Reported Albuterol Sulfate Neb Soln (Albuterol Sulfate) 2.5 Mg/3 Ml Vial.neb 2.5 Mg NEB Q4HRS PRN Nexium Capsule (Esomeprazole Magnesium) 40 Mg Capsule.dr 40 Mg PO DAILYAC Singulair Tablet (Montelukast Sodium) 10 Mg Tablet 1 Tab PO DAILY Lasix (Furosemide) 20 Mg Tablet 1 Tab PO DAILY Symbicort 160-4.5 Mcg Inhaler (Budesonide/Formoterol Fumarate) 10.2 Gm Hfa.aer.ad 10.2 Gm IH BID Albuterol Sulfate Hfa Inhaler (Albuterol Sulfate) 8.5 Gm Hfa.aer.ad 8.5 Gm IH PRN Duoneb 0.5 Mg-3 Mg/3 Ml Soln (Ipratropium/Albuterol Sulfate) 3 Ml Ampul.neb 3 Ml IH QID Aspir 81 (Aspirin) 81 Mg Tablet.dr 81 Mg PO DAILY Vitals/I & O Vital Sign - Last 24 Hours 12/30/16 12/30/16 12/30/16 12/30/16 11:00 12:00 15:00 15:16 Temp 98.5 98.9 98.5 98.9 Pulse 97 92 Resp 20 20 B/P (MAP) 154/93 (113) 151/81 (104) Pulse Ox 93 99 O2 Delivery Nasal Cannula Nasal Cannula Nasal Cannula Nasal Cannula O2 Flow Rate 3.0 2.0 3.0 2.0 12/30/16 12/30/16 12/30/16 12/30/16 19:00 19:36 20:20 20:45 Temp 99.0 99.0 Pulse 93 Resp 18 B/P (MAP) 133/89 (104) Pulse Ox 94 96 O2 Delivery Nasal Cannula Nasal Cannula Nasal Cannula Nasal Cannula O2 Flow Rate 3.0 2.0 3.0 3.0 12/30/16 12/31/16 12/31/16 12/31/16 23:51 03:00 03:00 07:00 Temp 98.5 98.3 98.5 98.5 98.3 98.5 Pulse 68 98 78 Resp 18 18 20 B/P (MAP) 142/93 (109) 131/89 (103) 134/78 (96) Pulse Ox 97 97 98 O2 Delivery Nasal Cannula Nasal Cannula Nasal Cannula O2 Flow Rate 3.0 Intake and Output 12/30/16 12/30/16 12/31/16 15:00 23:00 07:00 Intake Total 600 ml 1080 ml Balance 600 ml 1080 ml BING GAMBLE MD Dec 31, 2016 09:15
[2016-12-31 11:00] VITALS: BP 140/95
--- NOTE | 2016-12-31 11:06 | PDOC ---
Subjective: Subjective: Breathing not better. Some LUQ pain wrapping to left flank, comes and goes. Feels no one listens re: abd pain, relates h/o "adhesions" not treated during hysterectomy. Swallowing the same. Objective: Vital Signs: Vital Signs Date Time Temp Pulse Resp B/P (MAP) Pulse Ox O2 Delivery O2 Flow Rate FiO2 12/31/16 08:00 Nasal Cannula 3.0 12/31/16 07:00 98.5 78 20 134/78 (96) 98 98.5 Labs: Laboratory Tests Test 12/30/16 11:39 12/30/16 16:57 12/31/16 07:28 Glucose (Fingerstick) 113 mg/dL 140 mg/dL 123 mg/dL PE: GEN: NAD LUNGS: tight, nasal cannula HEART: RRR ABD: epigastric to LUQ/flank NEURO/PSYCH: A & O 3, seems a little depressed A/P: COPD exacerbation -per pulm, cardio Dysphagia/presbyesophagus -solids and liquids, barium swallow 2015 w/ tertiary contractions and reflux, last EGD 2014 -on H2 viola and PPI Abd/flank pain -wonders about adhesions -- Not best endoscopy candidate w/ COPD, discussed this with her again. Re: possible adhesions and related pain, would not be good surgical candidate either. Last CT in 05/2016, not sure if repeating this would be beneficial? Continue PPI. DENY MONTESINOS Dec 31, 2016 11:06
[2016-12-31] MEDS ORDERED: SODIUM CHLORIDE 0.65% NASAL SPRAY 45ML BOTTLE. NS PRN (12:00)
[2016-12-31 15:00] VITALS: BP 124/75
--- NOTE | 2016-12-31 16:10 | PDOC ---
PULMONARY PROGRESS NOTES Subjective pt wants to go home Vitals Vital Signs Date Time Temp Pulse Resp B/P (MAP) Pulse Ox O2 Delivery O2 Flow Rate FiO2 12/31/16 15:16 Nasal Cannula 2.0 12/31/16 15:00 98.6 79 20 124/75 (91) 94 98.6 General: Alert Lungs: Other (occas wheeze) Cardiovascular: S1, S2 Abdomen: Soft, Non-tender, Other Neuro Exam: Alert Extremities: No Edema Skin: Warm Labs Laboratory Tests Test 12/29/16 18:45 12/30/16 00:50 12/30/16 02:00 12/30/16 09:05 Urine Opiates Screen Neg (NEG) Urine Methadone Screen Neg (NEG) Urine Barbiturates Neg (NEG) Urine Phencyclidine Screen Neg (NEG) Urine Amphetamine/Methamphetamine Neg (NEG) Urine Benzodiazepines Screen Neg (NEG) Urine Cocaine Screen Neg (NEG) Urine Cannabinoids Screen Neg (NEG) Urine Ethyl Alcohol Neg (NEG) Troponin I Quantitative 0.047 ng/mL (0.000-0.055) 0.058 ng/mL (0.000-0.055) White Blood Count 4.7 x10^3/uL (4.0-11.0) Red Blood Count 4.07 x10^6/uL (3.50-5.40) Hemoglobin 12.1 g/dL (12.0-15.5) Hematocrit 37.2 % (36.0-47.0) Mean Corpuscular Volume 91 fL (79-100) Mean Corpuscular Hemoglobin 30 pg (25-35) Mean Corpuscular Hemoglobin Concent 33 g/dL (31-37) Red Cell Distribution Width 13.7 % (11.5-14.5) Platelet Count 221 x10^3/uL (140-400) Neutrophils (%) (Auto) 83 % (31-73) Lymphocytes (%) (Auto) 15 % (24-48) Monocytes (%) (Auto) 2 % (0-9) Eosinophils (%) (Auto) 0 % (0-3) Basophils (%) (Auto) 0 % (0-3) Neutrophils # (Auto) 3.9 x10^3uL (1.8-7.7) Lymphocytes # (Auto) 0.7 x10^3/uL (1.0-4.8) Monocytes # (Auto) 0.1 x10^3/uL (0.0-1.1) Eosinophils # (Auto) 0.0 x10^3/uL (0.0-0.7) Basophils # (Auto) 0.0 x10^3/uL (0.0-0.2) Sodium Level 144 mmol/L (136-145) Potassium Level 4.4 mmol/L (3.5-5.1) Chloride Level 106 mmol/L (98-107) Carbon Dioxide Level 34 mmol/L (21-32) Anion Gap 4 (6-14) Blood Urea Nitrogen 15 mg/dL (7-20) Creatinine 0.8 mg/dL (0.6-1.0) Estimated GFR (Cockcroft-Gault) 89.1 Glucose Level 181 mg/dL (70-99) Hemoglobin A1c 5.4 % (4.8-5.6) Calcium Level 8.7 mg/dL (8.5-10.1) Test 12/30/16 09:51 12/30/16 11:39 12/30/16 16:57 12/31/16 07:28 Glucose (Fingerstick) 189 mg/dL (70-99) 113 mg/dL (70-99) 140 mg/dL (70-99) 123 mg/dL (70-99) Test 12/31/16 11:33 Glucose (Fingerstick) 149 mg/dL (70-99) Laboratory Tests Test 12/30/16 16:57 12/31/16 07:28 12/31/16 11:33 Glucose (Fingerstick) 140 mg/dL (70-99) 123 mg/dL (70-99) 149 mg/dL (70-99) Medications Active Scripts Medications Dose Route/Sig Max Daily Dose Days Date Category Dose Instructions Potassium Chloride 10 Meq Capsule.er 1 Cap PO DAILY 04/26/15 Rx Diflucan (Fluconazole) 100 Mg Tablet 200 Mg PO DAILY 04/26/15 Rx Fluticasone Propionate Nasal [place] (Fluticasone Propionate) 1 [place] 2 [place] NS DAILY 04/26/15 Rx Nystatin 5 Ml Oral.susp 5 Ml SWSW [id number] 04/26/15 Rx Prednisone 10 Mg Tablet 10 Mg PO DAILY 04/26/15 Rx 4 by mouth daily for 3 days then 3 by mouth daily for 3 days then 2 by mouth daily for 3 days then 1 by mouth daily for 3 days Zoloft (Sertraline Hcl) 50 Mg Tablet 50 Mg PO DAILY 04/26/15 Rx Albuterol Sulfate Neb Soln (Albuterol Sulfate) 2.5 Mg/3 Ml Vial.neb 2.5 Mg NEB Q4HRS PRN 04/18/15 Reported Nexium Capsule (Esomeprazole Magnesium) 40 Mg Capsule. 40 Mg PO DAILYAC 04/18/15 Reported Singulair Tablet (Montelukast Sodium) 10 Mg Tablet 1 Tab PO DAILY 04/27/14 Reported Lasix (Furosemide) 20 Mg Tablet 1 Tab PO DAILY 04/27/14 Reported Symbicort 160-4.5 Mcg Inhaler (Budesonide/Formoterol Fumarate) 10.2 Gm Hfa.aer.ad 10.2 Gm IH BID 07/28/13 Reported Albuterol Sulfate Hfa Inhaler (Albuterol Sulfate) 8.5 Gm Hfa.aer.ad 8.5 Gm IH PRN 07/28/13 Reported Duoneb 0.5 Mg-3 Mg/3 Ml Soln (Ipratropium/Albuterol Sulfate) 3 Ml Ampul.neb 3 Ml IH QID 07/28/13 Reported Aspir 81 (Aspirin) 81 Mg Tablet. 81 Mg PO DAILY 07/28/13 Reported Impression . A/C RESP FAILURE AECOPD NON SPECIFIC BRONCHITIS ALLERGIES ELEVATED TROPONIN ANXIETY Plan . HOME IN AM THIS IS THE BEST SHE WILL GET 02 AVOID THE HEAT NEBS ALLERGIES MED ANXIETY PILLS GLENIS SCHWARTZ MD Dec 31, 2016 16:10
[2016-12-31 19:58] VITALS: BP 119/73
[2016-12-31] MEDS ORDERED: FAMOTIDINE 20 MG TABLET. PO SCH (21:00)
[2016-12-31 23:21] VITALS: BP 132/81
[2017-01-01 03:42] VITALS: BP 126/66
[2017-01-01] MEDS: ACETAMINOPHEN 500 MG TABLET PO PRN ×2 (05:18→14:31)
[2017-01-01] MEDS: PANTOPRAZOLE 40 MG TABLET.DR. PO SCH (05:18)
[2017-01-01 07:00] VITALS: BP 121/69
[2017-01-01] MEDS: INSULIN ASPART 300 UNITS/3 ML INSULN.PEN SQ SCH ×2 (08:00→12:00)
[2017-01-01] MEDS: IPRATRPIUM/ALBUTEROL 0.5/2.5MG 3 ML NEBU. NEB SCH ×3 (08:14→16:41)
[2017-01-01] MEDS: MONTELUKAST SODIUM 10 MG TABLET. PO SCH (08:44)
[2017-01-01] MEDS: methylPREDNISolone SOD SUCC PF 40 MG/ML VIAL. IV SCH ×2 (08:45→14:31)
[2017-01-01] MEDS: BENZONATATE 100 MG CAPSULE. PO SCH ×2 (08:45→14:31)
[2017-01-01] MEDS: FUROSEMIDE 20 MG TABLET PO SCH (08:45)
[2017-01-01] MEDS: ASPIRIN ENTERIC COATED 81 MG TABLET.DR. PO SCH (08:45)
[2017-01-01] MEDS: POTASSIUM CHLORIDE 10 MEQ TABLET.ER. PO SCH (08:45)
[2017-01-01] MEDS: SERTRALINE 50 MG TABLET. PO SCH (08:45)
--- NOTE | 2017-01-01 10:51 | PDOC ---
Subjective: Subjective: Left flank pain, might go home today. Objective: Vital Signs: Vital Signs Date Time Temp Pulse Resp B/P (MAP) Pulse Ox O2 Delivery O2 Flow Rate FiO2 01/01/17 08:17 96 Nasal Cannula 2.0 01/01/17 07:00 97.9 72 18 121/69 (86) 97.9 Labs: Laboratory Tests Test 12/31/16 11:33 12/31/16 16:43 12/31/16 20:42 01/01/17 07:23 Glucose (Fingerstick) 149 mg/dL 153 mg/dL 162 mg/dL 115 mg/dL PE: GEN: NAD LUNGS: +cough, nasal cannula ABD: some LUQ/axilla/flank tenderness NEURO/PSYCH: A & O 3 A/P: COPD exacerbation Dysphagia/presbyesophagus -solids and liquids, barium swallow 2015, last EGD 2014 -on H2 viola and PPI Flank pain -- Continue GERD treatment. Defer to primary re: flank pain. DENY MONTESINOS Jan 01, 2017 10:51
[2017-01-01 11:00] VITALS: BP 125/70
--- NOTE | 2017-01-01 12:40 | PDOC ---
PROGRESS NOTES Subjective Subjective Ms Stevens was sitting up in bed this AM. She hasn't had any episodes of chest pain. She still feels short of breath. Objective Objective Vital Signs Date Time Temp Pulse Resp B/P (MAP) Pulse Ox O2 Delivery O2 Flow Rate FiO2 01/01/17 11:00 98.9 80 20 125/70 (88) 95 Room Air 98.9 01/01/17 08:17 2.0 Intake and Output 01/01/17 07:00 Intake Total 1440 ml Balance 1440 ml Intake Oral 1440 ml # Voids 7 Physical Exam Heart: Regular rate (and rhythm) Extremities: Normal pulses (2/4 radial b/l) General: Alert, No acute distress Lungs: Other (mild expiratory wheeze on left) Assessment Assessment Ms Stevens is a 56 yr old who presents with copd exacerbation 1) COPD - continue symptomatic care 2) heart ischemia - ischemia of hypoxia from COPD Patient is stable from cardiac standpoint for discharge Problems Medical Problems: (1) Elevated troponin Status: Acute Comment Review of Relevant I have reviewed the following items paulette (where applicable) has been applied. Labs Laboratory Tests Test 12/30/16 16:57 12/31/16 07:28 12/31/16 11:33 12/31/16 16:43 Glucose (Fingerstick) 140 mg/dL (70-99) 123 mg/dL (70-99) 149 mg/dL (70-99) 153 mg/dL (70-99) Test 12/31/16 20:42 01/01/17 07:23 Glucose (Fingerstick) 162 mg/dL (70-99) 115 mg/dL (70-99) Laboratory Tests Test 12/31/16 16:43 12/31/16 20:42 01/01/17 07:23 Glucose (Fingerstick) 153 mg/dL (70-99) 162 mg/dL (70-99) 115 mg/dL (70-99) Medications Current Medications Albuterol/ Ipratropium (Duoneb) 3 ml 1X ONCE NEB Last administered on 16:57; Start 12/29/16 at 16:45; Stop 12/29/16 at 16:46; Status DC Azithromycin 250 ml @ 250 mls/hr 1X ONCE IV Last administered on 12/29/16 16 :48; Start 12/29/16 at 16:45; Stop 12/29/16 at 17:44; Status DC Methylprednisolone Sodium Succinate (SOLU-Medrol 125MG VIAL) 125 mg 1X ONCE IV Last administered on 12/29/16 16:48; Start 12/29/16 at 16:45; Stop 12/29/16 at 16:46; Status DC Aspirin (Ecotrin) 81 mg DAILY PO Last administered on 01/01/17 08:45; Start at 09:00 Furosemide (Lasix) 20 mg DAILY PO Last administered on 01/01/17 08:45; Start 12/30/16 at 09:00 Montelukast Sodium (Singulair) 10 mg DAILY PO Last administered on 01/01/17 08 :44; Start 12/30/16 at 09:00 Sertraline HCl (Zoloft) 50 mg DAILY PO Last administered on 01/01/17 08:45; Start 12/30/16 at 09:00 Pantoprazole Sodium (Protonix) 40 mg DAILYAC PO Last administered on 01/01/17 05:18; Start 12/30/16 at 07:30 Potassium Chloride (Klor-Con) 10 meq [id number] PO Last administered on 08:45; Start 12/30/16 at 08:00 Benzonatate (Tessalon Perle) 100 mg TID PO Last administered on 01/01/17 08:45 ; Start 12/29/16 at 21:00 Guaifenesin (Robitussin Dm) 10 ml PRN Q6HRS PRN PO COUGH Last administered on 21:21; Start 12/29/16 at 18:15 Methylprednisolone Sodium Succinate (SOLU-Medrol 40MG VIAL) 40 mg TID IV Last administered on 01/01/17 08:45; Start 12/29/16 at 21:00 Albuterol/ Ipratropium (Duoneb) 3 ml RTQID NEB Last administered on 01/01/17 08:14; Start 12/29/16 at 21:00 Famotidine (Pepcid) 20 mg DAILY PO Last administered on 12/31/16 08:37; Start 12/30/16 at 09:00; Stop 12/31/16 at 11:05; Status DC Fentanyl Citrate (Fentanyl 2ml Vial) 50 mcg PRN Q2HR PRN IV pain; Start at 18:15 Ondansetron HCl (Zofran) 4 mg PRN Q6HRS PRN IV NAUSEA/VOMITING; Start 12/29/16 at 18:15 Acetaminophen (Tylenol) 500 mg QID PRN PO pain Last administered on 01/01/17 05:18; Start 12/29/16 at 18:15 Ondansetron HCl (Zofran) 4 mg PRN Q8HRS PRN IV NAUSEA/VOMITING; Start 12/29/16 at 18:30; Stop 12/30/16 at 18:29; Status DC Albuterol Sulfate (Ventolin Neb Soln) 2.5 mg PRN Q6HRS PRN NEB SOA Last administered on 01/01/17 04:36; Start 12/29/16 at 18:30 Aspirin (Kamala Aspirin) 325 mg 1X ONCE PO Last administered on 12/29/16 20:45 ; Start 12/29/16 at 19:45; Stop 12/29/16 at 19:46; Status DC Insulin Aspart (NovoLOG) 0-5 UNITS TIDWMEALS SQ Last administered on 12/30/16 10:16; Start 12/30/16 at 09:30 Dextrose (Dextrose 50%-Water Syringe) 12.5 gm PRN Q15MIN PRN IV SEE COMMENTS; Start 12/30/16 at 09:00 Famotidine (Pepcid) 20 mg QHS PO Last administered on 12/31/16 21:20; Start at 21:00 Sodium Chloride (Saline Mist Nasal) 1 ebonie PRN Q1HR PRN NS NASAL CONGESTION Last administered on 12/31/16 12:59; Start 12/31/16 at 12:00 Active Scripts Active Potassium Chloride 10 Meq Capsule.er 1 Cap PO DAILY Diflucan (Fluconazole) 100 Mg Tablet 200 Mg PO DAILY Fluticasone Propionate Nasal [place] (Fluticasone Propionate) 1 [place] 2 [place] NS DAILY Nystatin 5 Ml Oral.susp 5 Ml SWSW [id number] 7 Days Prednisone 10 Mg Tablet 10 Mg PO DAILY 4 by mouth daily for 3 days then 3 by mouth daily for 3 days then 2 by mouth daily for 3 days then 1 by mouth daily for 3 days Zoloft (Sertraline Hcl) 50 Mg Tablet 50 Mg PO DAILY Reported Albuterol Sulfate Neb Soln (Albuterol Sulfate) 2.5 Mg/3 Ml Vial.neb 2.5 Mg NEB Q4HRS PRN Nexium Capsule (Esomeprazole Magnesium) 40 Mg Capsule.dr 40 Mg PO DAILYAC Singulair Tablet (Montelukast Sodium) 10 Mg Tablet 1 Tab PO DAILY Lasix (Furosemide) 20 Mg Tablet 1 Tab PO DAILY Symbicort 160-4.5 Mcg Inhaler (Budesonide/Formoterol Fumarate) 10.2 Gm Hfa.aer.ad 10.2 Gm IH BID Albuterol Sulfate Hfa Inhaler (Albuterol Sulfate) 8.5 Gm Hfa.aer.ad 8.5 Gm IH PRN Duoneb 0.5 Mg-3 Mg/3 Ml Soln (Ipratropium/Albuterol Sulfate) 3 Ml Ampul.neb 3 Ml IH QID Aspir 81 (Aspirin) 81 Mg Tablet. 81 Mg PO DAILY Vitals/I & O Vital Sign - Last 24 Hours 12/31/16 12/31/16 12/31/16 12/31/16 15:00 15:16 19:39 19:58 Temp 98.6 98.9 98.6 98.9 Pulse 79 103 Resp 20 18 B/P (MAP) 124/75 (91) 119/73 (88) Pulse Ox 94 95 94 O2 Delivery Nasal Cannula Nasal Cannula Nasal Cannula Nasal Cannula O2 Flow Rate 3.0 2.0 2.0 3.0 12/31/16 12/31/16 01/01/17 01/01/17 20:30 23:21 03:42 04:37 Temp 98.9 97.9 98.9 97.9 Pulse 80 74 Resp 18 18 B/P (MAP) 132/81 (98) 126/66 (86) Pulse Ox 96 92 95 O2 Delivery Nasal Cannula Nasal Cannula Room Air Nasal Cannula O2 Flow Rate 3.0 3.0 2.0 01/01/17 01/01/17 01/01/17 01/01/17 07:00 08:00 08:17 11:00 Temp 97.9 98.9 97.9 98.9 Pulse 72 80 Resp 18 20 B/P (MAP) 121/69 (86) 125/70 (88) Pulse Ox 99 96 95 O2 Delivery Room Air Nasal Cannula Nasal Cannula Room Air O2 Flow Rate 3.0 2.0 Intake and Output 12/31/16 12/31/16 01/01/17 15:00 23:00 07:00 Intake Total 700 ml 740 ml Balance 700 ml 740 ml BING GAMBLE MD Jan 01, 2017 12:40
--- NOTE | 2017-01-01 13:49 | PDOC ---
PROGRESS NOTES Chief Complaint Chief Complaint Note: late entry, pt seen on 12/31 at 14:30 COPD exacerbation ASSESSMENT AND PLAN: 1. COPD exacerbation: severe acute bronchitis., clinically sl improved today. on steroids, nebs suppl O2, mucolytics, empiric azithro. Pulm consult 2. Pulmonary arterial HTN: 2/2 above 3. Elevated troponin: stable ~0.5 x2. no cardiac sx. suspect 2/2 (2.). cardiac consult 4. Hyperglycemia: no previous diagnosis. obtain HgbA1c, ISS 5. Dysphagia: GI consult 6. Depression NOS History of Present Illness History of Present Illness breathing much improved. no significant cough. Vitals Vitals Vital Signs Date Time Temp Pulse Resp B/P (MAP) Pulse Ox O2 Delivery O2 Flow Rate FiO2 01/01/17 13:02 Nasal Cannula 2.0 01/01/17 11:00 98.9 80 20 125/70 (88) 95 98.9 Physical Exam General: Alert, No acute distress Heart: Regular rate (and rhythm) Lungs: Other (occas wheeze) Abdomen: Other (tenderness on palpation of midepigastrium) Extremities: Normal pulses (2/4 radial b/l) Skin: No rashes, No breakdown, No significant lesion Labs LABS Laboratory Tests Test 12/31/16 16:43 12/31/16 20:42 01/01/17 07:23 01/01/17 11:26 Glucose (Fingerstick) 153 mg/dL (70-99) 162 mg/dL (70-99) 115 mg/dL (70-99) 148 mg/dL (70-99) KIKA HOLCOMB MD Jan 01, 2017 13:49
--- NOTE | 2017-01-01 14:30 | PDOC ---
PULMONARY PROGRESS NOTES Subjective pt wants to go home, sob is better, has cough, nasal congestion, no pain Vitals Vital Signs Date Time Temp Pulse Resp B/P (MAP) Pulse Ox O2 Delivery O2 Flow Rate FiO2 01/01/17 13:02 Nasal Cannula 2.0 01/01/17 11:00 98.9 80 20 125/70 (88) 95 98.9 ROS: No Nausea, No Abdominal Pain General: Alert HEENT: Other (nc at perrl nose, inflamed mucosa) Lungs: Other (occas wheeze) Cardiovascular: S1, S2 Abdomen: Soft, Non-tender, Other Neuro Exam: Alert Extremities: No Edema Skin: Warm Labs Laboratory Tests Test 12/30/16 16:57 12/31/16 07:28 12/31/16 11:33 12/31/16 16:43 Glucose (Fingerstick) 140 mg/dL (70-99) 123 mg/dL (70-99) 149 mg/dL (70-99) 153 mg/dL (70-99) Test 12/31/16 20:42 01/01/17 07:23 01/01/17 11:26 Glucose (Fingerstick) 162 mg/dL (70-99) 115 mg/dL (70-99) 148 mg/dL (70-99) Laboratory Tests Test 12/31/16 16:43 12/31/16 20:42 01/01/17 07:23 01/01/17 11:26 Glucose (Fingerstick) 153 mg/dL (70-99) 162 mg/dL (70-99) 115 mg/dL (70-99) 148 mg/dL (70-99) Medications Active Scripts Medications Dose Route/Sig Max Daily Dose Days Date Category Dose Instructions Potassium Chloride 10 Meq Capsule.er 1 Cap PO DAILY 04/26/15 Rx Diflucan (Fluconazole) 100 Mg Tablet 200 Mg PO DAILY 04/26/15 Rx Fluticasone Propionate Nasal [place] (Fluticasone Propionate) 1 [place] 2 [place] NS DAILY 04/26/15 Rx Nystatin 5 Ml Oral.susp 5 Ml SWSW [id number] 04/26/15 Rx Prednisone 10 Mg Tablet 10 Mg PO DAILY 04/26/15 Rx 4 by mouth daily for 3 days then 3 by mouth daily for 3 days then 2 by mouth daily for 3 days then 1 by mouth daily for 3 days Zoloft (Sertraline Hcl) 50 Mg Tablet 50 Mg PO DAILY 04/26/15 Rx Albuterol Sulfate Neb Soln (Albuterol Sulfate) 2.5 Mg/3 Ml Vial.neb 2.5 Mg NEB Q4HRS PRN 04/18/15 Reported Nexium Capsule (Esomeprazole Magnesium) 40 Mg Capsule. 40 Mg PO DAILYAC 04/18/15 Reported Singulair Tablet (Montelukast Sodium) 10 Mg Tablet 1 Tab PO DAILY 04/27/14 Reported Lasix (Furosemide) 20 Mg Tablet 1 Tab PO DAILY 04/27/14 Reported Symbicort 160-4.5 Mcg Inhaler (Budesonide/Formoterol Fumarate) 10.2 Gm Hfa.aer.ad 10.2 Gm IH BID 07/28/13 Reported Albuterol Sulfate Hfa Inhaler (Albuterol Sulfate) 8.5 Gm Hfa.aer.ad 8.5 Gm IH PRN 07/28/13 Reported Duoneb 0.5 Mg-3 Mg/3 Ml Soln (Ipratropium/Albuterol Sulfate) 3 Ml Ampul.neb 3 Ml IH QID 07/28/13 Reported Aspir 81 (Aspirin) 81 Mg Tablet. 81 Mg PO DAILY 07/28/13 Reported Impression . A/C RESP FAILURE AECOPD NON SPECIFIC BRONCHITIS ALLERGIES ELEVATED TROPONIN ANXIETY allergic rhinitis Plan . ok to go HOME THIS IS THE BEST SHE WILL GET (per dr ballesteros) 02 AVOID THE HEAT NEBS ALLERGIES MED ANXIETY PILLS add singulair discussed w pt TRINY CHEN MD Jan 01, 2017 14:30
[2017-01-01 15:15] VITALS: BP 138/72
[2017-01-01] MEDS ORDERED: PRED-220 PO (16:10)
--- NOTE | 2017-01-02 23:39 | DS ---
DATE OF DISCHARGE: 01/01/2017 CHIEF COMPLAINT: COPD exacerbation. HOSPITAL COURSE: The patient is a 56-year-old -[place] woman who presented to the Emergency Room with worsening shortness of breath over the previous 2 weeks. She was barely able to walk due to her shortness of breath. Had also a nonproductive cough and nasal congestion, but denied any fevers or chills. She was admitted with COPD exacerbation, started on steroids, nebulizers and inhalers with slow improvement in her symptoms. Pulmonary consult with Dr. Stock was obtained as well. As she slowly improved, she was deemed appropriate for discharge on 01/01. PHYSICAL EXAMINATION: VITAL SIGNS: With a blood pressure of 138/72, heart rate of 81, respiratory rate of 16. She is afebrile. GENERAL: This is an overweight, 56-year-old -[place] woman, alert and oriented, in no acute distress. LUNGS: Clear. HEART: Without any wheezes. Heart has regular rate and rhythm. ABDOMEN: Has positive bowel sounds, soft, nontender. EXTREMITIES: Show no edema. DISCHARGE DATE: 01/01/2017 DISCHARGE DIAGNOSIS: Chronic obstructive pulmonary disease exacerbation. DISCHARGE DISPOSITION: To home. DISCHARGE CONDITION: Improved. DISCHARGE MEDICATIONS: Please refer to MAR. DISCHARGE INSTRUCTIONS: The patient will follow up with Pulmonary and her primary care physician over the next month. KIKA HOLCOMB MD DR: UR/nts JOB#: [id number] / [id number] CIERRA Hui MD MTDD
== END 2017-01-01 17:40 | disposition home or self-care (01) | DRG 189 ==
LOC: ER 15:41 → 6 SOUTH 17:35 → OBSVTOIN 12-30 09:47
PROVIDERS: ADMIT Internal Medicine; ATTEND Internal Medicine
DX: J96.21 Acute and chronic respiratory failure with hypoxia (principal); J44.0 Chronic obstructive pulmonary disease with (acute) lower respiratory infection; J44.1 Chronic obstructive pulmonary disease with (acute) exacerbation; F32.9 Major depressive disorder, single episode, unspecified; G47.33 Obstructive sleep apnea (adult) (pediatric); I10 Essential (primary) hypertension; I27.2 Other secondary pulmonary hypertension; J20.9 Acute bronchitis, unspecified; K21.9 Gastro-esophageal reflux disease without esophagitis; R13.10 Dysphagia, unspecified; R73.9 Hyperglycemia, unspecified; I25.9 Chronic ischemic heart disease, unspecified; K22.8 Other specified diseases of esophagus; K66.0 Peritoneal adhesions (postprocedural) (postinfection); F41.9 Anxiety disorder, unspecified; Z82.49 Family history of ischemic heart disease and other diseases of the circulatory system; Z87.891 Personal history of nicotine dependence; Z90.710 Acquired absence of both cervix and uterus; Z99.81 Dependence on supplemental oxygen; Z88.0 Allergy status to penicillin; Z88.5 Allergy status to narcotic agent; Z87.01 Personal history of pneumonia (recurrent)
CPT/HCPCS: 36415; 71010; 80048; 80076; 82553; 82962; 83036; 83690; 83735; 83880; 84443; 84484; 85027; 85610; 93005; 94250; 94640; 94760; 96365; 96375; G0378; G0379; G0481; J0456; J1815; J2920; J2930; J7613; J7620; 99285-25; A6539

== ENCOUNTER → 2017-03-23 | Outpatient (CLI) | payer OTHER ==
--- NOTE | 2017-03-23 14:32 | RAD ---
Indication cough and shortness of breath. PA and lateral views of the chest were obtained and are compared to a study 12/29/2016. The heart and pulmonary vessels appear normal. The lungs are clear of acute infiltrates. Again seen is bilateral prominence of the right and left main pulmonary arteries. This could reflect pulmonary hypertension. There is no pleural fluid. There is no pneumothorax. IMPRESSION: Chronic changes. No acute finding apparent in the chest
== END | disposition home or self-care (01) ==
LOC: RAD 12:49
PROVIDERS: ATTEND Internal Medicine Pulmonary Disease
DX: I27.20 Pulmonary hypertension, unspecified (principal); R05 Cough; R06.02 Shortness of breath
CPT/HCPCS: 71020

== ENCOUNTER 2017-03-27 15:51 | Inpatient (IN) | payer OTHER ==
[~2017-03-27] VITALS: Ht 152.4 cm; Wt 72.7 kg
[2017-03-27] MEDS ORDERED: IPRATRPIUM/ALBUTEROL 0.5/2.5MG 3 ML NEBU. NEB ONE ×2 (16:15→18:00)
[2017-03-27] MEDS ORDERED: AZITHRMYCN 500MG IVPB FOR OMNI 250 ML IV ONE (16:15)
[2017-03-27] MEDS ORDERED: methylPREDNISolone SOD SUCC PF 125 MG/2 ML VIAL. IV ONE (16:15)
[2017-03-27 16:26] LABS: BASO # 0.1 x10^3/uL (0.0-0.2); BASO % 1 % (0-3); EOS % 13 % (0-3); HEMATOCRIT 40.2 % (36.0-47.0); HEMOGLOBIN 13.2 g/dL (12.0-15.5); LYMPH # 2.8 x10^3/uL (1.0-4.8); LYMPH % 37 % (24-48); MEAN CORPUSCULAR HEMOGLOBIN 29 pg (25-35); MEAN CORPUSCULAR HGB CONC 33 g/dL (31-37); MEAN CORPUSCULAR VOLUME 89 fL (79-100); MONO % 12 % (0-9); NEUT % 37 % (31-73); PLATELET COUNT 248 x10^3/uL (140-400); RED BLOOD COUNT 4.51 x10^6/uL (3.50-5.40); RED CELL DISTRIBUTION WIDTH 14.6 % (11.5-14.5); WHITE BLOOD COUNT 7.6 x10^3/uL (4.0-11.0)
--- NOTE | 2017-03-27 16:36 | PHYS DOC ---
Past Medical History Past Medical History: COPD Past Surgical History: Hysterectomy, Tonsillectomy, Other Additional Past Surgical Histo: HEART CATH,EXP SURG X4, laproscopy Alcohol Use: None Drug Use: None Adult General Chief Complaint Chief Complaint: SHORTNESS OF BREATH [facility] HPI Patient is a 56 year old -[place] female who presents with shortness of breath. She states that she has a history of COPD she was hospitalized back in January when she was discharged she never was completely back to normal. She states over the last few days or shortness of breath has really gotten worse. She denies any chest pain. She states she does have slightly productive cough. She has been using her inhalers and her Symbicort without any relief. She denies any fevers but is had sweats recently. She denies any nausea vomiting. Her primary care physician is Dr. 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 Review of Systems Review of Systems Constitutional: Denies fever or chills [] Eyes: Denies change in visual acuity, redness, or eye pain [] HENT: Denies nasal congestion or sore throat [] Respiratory: Denies cough or shortness of breath [] Cardiovascular: No additional information not addressed in HPI [] GI: Denies abdominal pain, nausea, vomiting, bloody stools or diarrhea [] : Denies dysuria or hematuria [] Musculoskeletal: Denies back pain or joint pain [] Integument: Denies rash or skin lesions [] Neurologic: Denies headache, focal weakness or sensory changes [] Endocrine: Denies polyuria or polydipsia [] Current Medications Current Medications Current Medications Medications (Trade) Dose Ordered Sig/Umang Start Time Stop Time Status Last Admin Dose Admin Albuterol/ Ipratropium (Duoneb) 3 ml 1X ONCE 03/27/17 16:15 03/27/17 16:16 DC 03/27/17 16:16 3 ML Azithromycin 250 ml @ 250 mls/hr 1X ONCE 03/27/17 16:15 03/27/17 17:14 DC 03/27/17 16:32 250 MLS/HR Methylprednisolone Sodium Succinate (SOLU-Medrol 125MG VIAL) 125 mg 1X ONCE 03/27/17 16:15 03/27/17 16:16 DC 03/27/17 16:25 125 MG Allergies Allergies Allergies Coded Allergies Type Severity Reaction Last Updated Verified Penicillins Allergy Intermediate rash 03/03/16 Yes morphine Allergy Intermediate Rash-PERCOCET OK 03/03/16 Yes Physical Exam Physical Exam Constitutional: Well developed, well nourished, no acute distress, non-toxic appearance. [] HENT: Normocephalic, atraumatic, bilateral external ears normal, oropharynx moist, no oral exudates, nose normal. [] Eyes: PERRLA, EOMI, conjunctiva normal, no discharge. [] Neck: Normal range of motion, no tenderness, supple, no stridor. [] Cardiovascular:Heart rate regular rhythm, no murmur [] Lungs & Thorax: Bilateral breath sounds clear to auscultation [] Abdomen: Bowel sounds normal, soft, no tenderness, no masses, no pulsatile masses. [] Skin: Warm, dry, no erythema, no rash. [] Back: No tenderness, no CVA tenderness. [] Extremities: No tenderness, no cyanosis, no clubbing, ROM intact, no edema. [] Neurologic: Alert and oriented X 3, normal motor function, normal sensory function, no focal deficits noted. [] Psychologic: Affect normal, judgement normal, mood normal. [] Current Patient Data Vital Signs Vital Signs Date Time Temp Pulse Resp B/P (MAP) Pulse Ox O2 Delivery O2 Flow Rate FiO2 03/27/17 16:29 60 24 142/102 (115) 90 Nasal Cannula 3.0 03/27/17 16:04 98.1 98.1 Lab Values Laboratory Tests Test 03/27/17 16:07 White Blood Count 7.6 x10^3/uL (4.0-11.0) Red Blood Count 4.51 x10^6/uL (3.50-5.40) Hemoglobin 13.2 g/dL (12.0-15.5) Hematocrit 40.2 % (36.0-47.0) Mean Corpuscular Volume 89 fL (79-100) Mean Corpuscular Hemoglobin 29 pg (25-35) Mean Corpuscular Hemoglobin Concent 33 g/dL (31-37) Red Cell Distribution Width 14.6 % (11.5-14.5) H Platelet Count 248 x10^3/uL (140-400) Neutrophils (%) (Auto) 37 % (31-73) Lymphocytes (%) (Auto) 37 % (24-48) Monocytes (%) (Auto) 12 % (0-9) H Eosinophils (%) (Auto) 13 % (0-3) H Basophils (%) (Auto) 1 % (0-3) Neutrophils # (Auto) 2.8 x10^3uL (1.8-7.7) Lymphocytes # (Auto) 2.8 x10^3/uL (1.0-4.8) Monocytes # (Auto) 0.9 x10^3/uL (0.0-1.1) Eosinophils # (Auto) 1.0 x10^3/uL (0.0-0.7) H Basophils # (Auto) 0.1 x10^3/uL (0.0-0.2) Sodium Level 143 mmol/L (136-145) Potassium Level 3.5 mmol/L (3.5-5.1) Chloride Level 102 mmol/L (98-107) Carbon Dioxide Level 37 mmol/L (21-32) H Anion Gap 4 (6-14) L Blood Urea Nitrogen 11 mg/dL (7-20) Creatinine 0.8 mg/dL (0.6-1.0) Estimated GFR (Cockcroft-Gault) 89.1 Glucose Level 130 mg/dL (70-99) H Calcium Level 9.4 mg/dL (8.5-10.1) Magnesium Level 2.0 mg/dL (1.8-2.4) Total Bilirubin 0.3 mg/dL (0.2-1.0) Direct Bilirubin 0.1 mg/dL (0.0-0.2) Aspartate Amino Transferase (AST) 36 U/L (15-37) Alanine Aminotransferase (ALT) 36 U/L (14-59) Alkaline Phosphatase 66 U/L (46-116) Creatine Kinase 587 U/L (26-192) H Creatine Kinase MB (Mass) 5.9 ng/mL (0.0-3.6) H Creatine Kinase MB Relative Index 1.0 % (0-4) Troponin I Quantitative < 0.017 ng/mL (0.000-0.055) AT-Jqa-N-Type Natriuretic Peptide 191 pg/mL (0-124) H Total Protein 7.5 g/dL (6.4-8.2) Albumin 3.9 g/dL (3.4-5.0) Laboratory Tests 03/27/17 16:07 Laboratory Tests 03/27/17 16:07 EKG EKG EKG shows sinus tachycardia [address] elevations or concerning T- wave inversions, motion artifact noted throughout the EKG, left axis deviation, QTC 440 ms, as interpreted by me. Radiology/Procedures Radiology/Procedures [] Impressions: copd excerbation Course & Med Decision Making Course & Med Decision Making Pertinent Labs and Imaging studies reviewed. (See chart for details) Patient is wheezing received DuoNeb SoluMedrol and azithromycin. She's being admitted to Dr. Rivera with Pulm consultation going to Dr. Chapman who recommended 4 times a day DuoNeb nebs in addition to 40 mEq Medrol every 8. She also wanted Rocephin started. The patient is an allergy to penicillin but it's a rash , she denied any shortness of breath or other abnormalities, and she's tolerated cefepime in the past according to pharmacy. 1715. Patient had a severe coughing attack and dropped her sats into the mid 80s. Her oxygen level was turned up and she is improving. 2 g magnesium has been ordered IV over 20 minutes in addition to another DuoNeb. 1730 she's received a breathing treatment and still having some tachypnea and moderate wheezing. Magnesium is starting get hung at this time. We will upgrade her to ICU to be watched more closely. 1745: Spoke with with pulmonary who once DuoNeb nebs change a every 4 hours, Pulmicort 0.5 mg twice a day in addition to BiPAP started at 12/8 with back up with 10. Critical care time 45 minutes of critical care time was used on this patient excluding procedures. Dragon Disclaimer Dragon Disclaimer This electronic medical record was generated, in whole or in part, using a voice recognition dictation system. Departure Departure Impression: Primary Impression: COPD exacerbation Disposition: ADMITTED INPATIENT Admitting Physician: Jerry Rivera Condition: STABLE Referrals: CIERRA ORTEGA MD (PCP) FABRIZIO GRIFFIN MD Mar 27, 2017 16:36
[2017-03-27 16:38] LABS: CALCIUM 9.4 mg/dL (8.5-10.1); CREATININE 0.8 mg/dL (0.6-1.0); GFR 89.1; POTASSIUM 3.5 mmol/L (3.5-5.1)
[2017-03-27 16:45] LABS: ALBUMIN 3.9 g/dL (3.4-5.0); DIRECT BILIRUBIN 0.1 mg/dL (0.0-0.2); TOTAL BILIRUBIN 0.3 mg/dL (0.2-1.0); TOTAL PROTEIN 7.5 g/dL (6.4-8.2)
[2017-03-27 16:52] LABS: CKMB MASS 5.9 ng/mL (0.0-3.6)
[2017-03-27] MEDS ORDERED: ONDANSETRON PF 4 MG/2 ML VIAL. IV PRN (17:30)
[2017-03-27] MEDS ORDERED: MAGNESIUM SULFATE 2GM 50 ML IV ONE (18:00)
[2017-03-27 19:00] VITALS: BP 131/87
[2017-03-27] MEDS ORDERED: OXYMETAZOLINE 0.05% NASAL SPRAY 30ML BOTTLE. NS PRN (19:15)
[2017-03-27] MEDS ORDERED: OXYMETAZOLINE 0.05% NASAL SPRAY 30ML BOTTLE. NS ONE (19:30)
[2017-03-27 20:00] VITALS: BP 116/72
[2017-03-27] MEDS ORDERED: BUDESONIDE 0.5 MG/2 ML NEBU. NEB SCH (20:00)
[2017-03-27] MEDS ORDERED: IPRATRPIUM/ALBUTEROL 0.5/2.5MG 3 ML NEBU. NEB SCH ×2 (20:00)
--- NOTE | 2017-03-27 20:10 | HP ---
ADMIT DATE: 03/27/2017 CHIEF COMPLAINT: Shortness of breath. 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 She has shortness of breath and wheezing. She has known COPD, although she quit smoking 6 years ago. She rates her symptoms at 9/10. She tried increasing her home meds, but that is not working. I have discussed the case with ER physician. We are going to admit the patient and consult pulmonary medicine. It should be noted that the patient has been on a Z-CYNDIE and some steroids for the past few days by Dr. Stock. PAST MEDICAL HISTORY: COPD, previous tobacco abuse, hysterectomy, tonsillectomy, cardiac catheterization, exploratory surgery. ALLERGIES: PENICILLIN AND MORPHINE. FAMILY HISTORY: COPD. SOCIAL HISTORY: She quit smoking, no drinking or drugs. 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 MEDICATIONS: Reviewed. REVIEW OF SYSTEMS: GENERAL: No history of weight change, weakness or fevers. SKIN: No bruising, hair changes or rashes. EYES: No blurred, double or loss of vision. NOSE AND THROAT: No history of nosebleeds, hoarseness or sore throat. HEART: No history of palpitations, chest pain or shortness of breath on exertion. LUNGS: She complains of shortness of breath and cough. GASTROINTESTINAL: Denies changes in appetite, nausea, vomiting, diarrhea or constipation. GENITOURINARY: No history of frequency, urgency, hesitancy or nocturia. NEUROLOGIC: Denies history of numbness, tingling, tremor or weakness. PSYCHIATRIC: No history of panic, anxiety or depression. ENDOCRINE: No history of heat or cold intolerance, polyuria or polydipsia. EXTREMITIES: Denies muscle weakness, joint pain, pain on walking or stiffness. PHYSICAL EXAMINATION: VITAL SIGNS: Temperature afebrile, pulse 70, respirations 18, blood pressure 179/95. GENERAL: She is alert, cooperative. HEART: Normal S1, S2. LUNGS: Diffuse wheezing. ABDOMEN: Soft. EXTREMITIES: No edema. SKIN: No rashes. PSYCHIATRIC: She is anxious. VASCULAR: Good capillary refill. ENDOCRINE: No thyromegaly. LYMPHATICS: No cervical nodes. HEMATOPOIETIC: No bruising. LABORATORY DATA: Hematology normal. Electrolytes: Sodium 143, potassium 3.5, chloride 102, bicarbonate 37, BUN 11, creatinine 0.8, glucose 130. Troponin is 0. CPK a little high at 587, CKMB a little high at 5.9. BNP a little high at 191. Chest x-ray results are pending. ASSESSMENT AND PLAN: Chronic obstructive pulmonary disease exacerbation with possible element of heart failure. The patient has been admitted, will consult Dr. Stock, consult Dr. Jean-Baptiste. DuoNeb q. 4 hours, IV steroids, continue her home medicines and cardiac monitoring. PT, OT tomorrow if she is doing better. PROGNOSIS: Guarded. CARINAL Yvrose AMBROSIO DO DR: ROSEMARY/franklin JOB#: [id number] / [id number]
[2017-03-27] MEDS: IPRATRPIUM/ALBUTEROL 0.5/2.5MG 3 ML NEBU. IH SCH (20:17)
[2017-03-27] MEDS: BUDESONIDE 0.5 MG/2 ML NEBU. NEB SCH (20:18)
[2017-03-27 21:00] VITALS: BP 126/84
[2017-03-27] MEDS ORDERED: ALBUTEROL SULFATE 8GM INHALER. IH SCH (21:00)
[2017-03-27] MEDS ORDERED: NON FORMULARY ITEM (Budesonide/Formoterol Fumarate (Symbicort 160-4.5 Mcg Inhaler) 10.2 GM IH SCH (21:00)
[2017-03-27] MEDS: methylPREDNISolone SOD SUCC PF 40 MG/ML VIAL. IV SCH (21:57)
[2017-03-27 22:00] VITALS: BP 114/80
[2017-03-27] MEDS ORDERED: methylPREDNISolone SOD SUCC PF 40 MG/ML VIAL. IV SCH (22:00)
[2017-03-27 22:21] LABS: HCO3 ABG 33 mmol/L (21-28); PCO2 ABG 59 mmHg (35-46); PH ABG 7.36 (7.35-7.45); PO2 ABG 69 mmHg (75-108); SAT O2 ABG 93 % (92-99)
[2017-03-27 22:23] LABS: FIO2 ABG 36
[2017-03-27 23:00] VITALS: BP 125/75
[2017-03-28] VITALS (11 sets, daily range): BP systolic 104–139; BP diastolic 64–96
[2017-03-28] MEDS: PROMETH/CODEINE 6.25/10MG 5 ML SYRUP. PO PRN ×4 (00:29→19:51)
[2017-03-28] MEDS: ALBUTEROL SULFATE 2.5 MG/3 ML NEBU. NEB PRN ×2 (00:46→04:52)
[2017-03-28] MEDS ORDERED: HYDROcodone/APAP 5/325MG 1 TAB TABLET PO PRN (03:30)
[2017-03-28] MEDS: methylPREDNISolone SOD SUCC PF 40 MG/ML VIAL. IV SCH ×3 (05:17→21:45)
[2017-03-28] MEDS: IBUPROFEN 600 MG TABLET. PO PRN (05:17)
[2017-03-28 06:45] LABS: BASO % 1 % (0-3); EOS % 0 % (0-3); HEMATOCRIT 36.4 % (36.0-47.0); HEMOGLOBIN 11.9 g/dL (12.0-15.5); LYMPH # 0.9 x10^3/uL (1.0-4.8); LYMPH % 17 % (24-48); MEAN CORPUSCULAR HEMOGLOBIN 29 pg (25-35); MEAN CORPUSCULAR HGB CONC 33 g/dL (31-37); MEAN CORPUSCULAR VOLUME 89 fL (79-100); MONO % 2 % (0-9); NEUT % 81 % (31-73); PLATELET COUNT 225 x10^3/uL (140-400); RED BLOOD COUNT 4.11 x10^6/uL (3.50-5.40); RED CELL DISTRIBUTION WIDTH 14.5 % (11.5-14.5); WHITE BLOOD COUNT 5.3 x10^3/uL (4.0-11.0)
[2017-03-28 07:00] LABS: CALCIUM 8.6 mg/dL (8.5-10.1); CREATININE 0.8 mg/dL (0.6-1.0); GFR 89.1; POTASSIUM 4.6 mmol/L (3.5-5.1)
[2017-03-28] MEDS: IPRATRPIUM/ALBUTEROL 0.5/2.5MG 3 ML NEBU. IH SCH ×4 (07:38→20:10)
[2017-03-28] MEDS: BUDESONIDE 0.5 MG/2 ML NEBU. NEB SCH ×2 (07:38→20:10)
--- NOTE | 2017-03-28 07:45 | EKG ---
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
[2017-03-28] MEDS ORDERED: predniSONE 10 MG TABLET PO SCH (09:00)
[2017-03-28] MEDS: ASPIRIN ENTERIC COATED 81 MG TABLET.DR. PO SCH (09:22)
[2017-03-28] MEDS: PANTOPRAZOLE 40 MG TABLET.DR. PO SCH (09:22)
[2017-03-28] MEDS: FUROSEMIDE 20 MG TABLET PO SCH (09:22)
[2017-03-28] MEDS: MONTELUKAST SODIUM 10 MG TABLET. PO SCH (09:22)
[2017-03-28] MEDS: SERTRALINE 50 MG TABLET. PO SCH (09:23)
[2017-03-28] MEDS: POTASSIUM CHLORIDE 10 MEQ TABLET.ER. PO SCH (09:23)
[2017-03-28] MEDS: FLUTICASONE 50MCG/NASAL SPRAY 16GM BOTTLE. NS SCH (09:24)
--- NOTE | 2017-03-28 10:37 | RAD ---
Portable AP upright view CXR: Clinical indications: Shortness of air. History of asthma. Comparison: March 23, 2017. Findings: No acute lung infiltrate or pleural effusion or pulmonary edema or lung mass or pneumothorax is seen. The heart size is prominent some of which is due to AP magnification. Prominence of the pulmonary arteries is seen consistent with pulmonary arterial hypertension. Mediastinum is stable. Impression: No acute radiographic abnormality is seen.
--- NOTE | 2017-03-28 13:18 | PDOC ---
PROGRESS NOTES Chief Complaint Chief Complaint SOB cough COPD exacerbation PMHx: COPD, previous tobacco abuse, hysterectomy, tonsillectomy, cardiac catheterization, exploratory surgery. History of Present Illness History of Present Illness Pt seen at bedside in the ICU. She is resting comfortably and in no acute distress. NC in place. Pt moving air well but continues to wheeze. Pulm is following-breathing txs, steroids, pulmicort, and BiPAP if needed. Cardio is following. C/o SOB but denies any fevers or chills. No CP. The patient continues to improve-will most likely move her from the ICU to the medical floor. No acute complaints at this time. Continue to monitor on medical floor. Vitals Vitals Vital Signs Date Time Temp Pulse Resp B/P (MAP) Pulse Ox O2 Delivery O2 Flow Rate FiO2 03/28/17 12:17 95 Nasal Cannula 4.0 03/28/17 06:00 85 115/75 (88) 03/28/17 03:00 98.2 98.2 03/27/17 17:53 26 Physical Exam General: Alert, Oriented X3, Cooperative, No acute distress Heart: Regular rate, Normal S1, Normal S2, No murmurs Lungs: Wheezing, Other (dyspnea) Abdomen: Normal bowel sounds, Soft Extremities: No cyanosis, No edema, Normal pulses Skin: No rashes, No significant lesion Labs LABS Laboratory Tests Test 03/27/17 16:07 03/27/17 19:20 03/28/17 06:30 White Blood Count 7.6 x10^3/uL (4.0-11.0) 5.3 x10^3/uL (4.0-11.0) Red Blood Count 4.51 x10^6/uL (3.50-5.40) 4.11 x10^6/uL (3.50-5.40) Hemoglobin 13.2 g/dL (12.0-15.5) 11.9 g/dL (12.0-15.5) Hematocrit 40.2 % (36.0-47.0) 36.4 % (36.0-47.0) Mean Corpuscular Volume 89 fL (79-100) 89 fL (79-100) Mean Corpuscular Hemoglobin 29 pg (25-35) 29 pg (25-35) Mean Corpuscular Hemoglobin Concent 33 g/dL (31-37) 33 g/dL (31-37) Red Cell Distribution Width 14.6 % (11.5-14.5) 14.5 % (11.5-14.5) Platelet Count 248 x10^3/uL (140-400) 225 x10^3/uL (140-400) Neutrophils (%) (Auto) 37 % (31-73) 81 % (31-73) Lymphocytes (%) (Auto) 37 % (24-48) 17 % (24-48) Monocytes (%) (Auto) 12 % (0-9) 2 % (0-9) Eosinophils (%) (Auto) 13 % (0-3) 0 % (0-3) Basophils (%) (Auto) 1 % (0-3) 1 % (0-3) Neutrophils # (Auto) 2.8 x10^3uL (1.8-7.7) 4.3 x10^3uL (1.8-7.7) Lymphocytes # (Auto) 2.8 x10^3/uL (1.0-4.8) 0.9 x10^3/uL (1.0-4.8) Monocytes # (Auto) 0.9 x10^3/uL (0.0-1.1) 0.1 x10^3/uL (0.0-1.1) Eosinophils # (Auto) 1.0 x10^3/uL (0.0-0.7) 0.0 x10^3/uL (0.0-0.7) Basophils # (Auto) 0.1 x10^3/uL (0.0-0.2) 0.0 x10^3/uL (0.0-0.2) Sodium Level 143 mmol/L (136-145) 140 mmol/L (136-145) Potassium Level 3.5 mmol/L (3.5-5.1) 4.6 mmol/L (3.5-5.1) Chloride Level 102 mmol/L (98-107) 103 mmol/L (98-107) Carbon Dioxide Level 37 mmol/L (21-32) 32 mmol/L (21-32) Anion Gap 4 (6-14) 5 (6-14) Blood Urea Nitrogen 11 mg/dL (7-20) 11 mg/dL (7-20) Creatinine 0.8 mg/dL (0.6-1.0) 0.8 mg/dL (0.6-1.0) Estimated GFR (Cockcroft-Gault) 89.1 89.1 Glucose Level 130 mg/dL (70-99) 182 mg/dL (70-99) Calcium Level 9.4 mg/dL (8.5-10.1) 8.6 mg/dL (8.5-10.1) Magnesium Level 2.0 mg/dL (1.8-2.4) Total Bilirubin 0.3 mg/dL (0.2-1.0) Direct Bilirubin 0.1 mg/dL (0.0-0.2) Aspartate Amino Transf (AST/SGOT) 36 U/L (15-37) Alanine Aminotransferase (ALT/SGPT) 36 U/L (14-59) Alkaline Phosphatase 66 U/L (46-116) Creatine Kinase 587 U/L (26-192) Creatine Kinase MB (Mass) 5.9 ng/mL (0.0-3.6) Creatine Kinase MB Relative Index 1.0 % (0-4) Troponin I Quantitative < 0.017 ng/mL (0.000-0.055) 0.020 ng/mL (0.000-0.055) EU-Myw-V-Type Natriuretic Peptide 191 pg/mL (0-124) Total Protein 7.5 g/dL (6.4-8.2) Albumin 3.9 g/dL (3.4-5.0) O2 Saturation 93 % (92-99) Arterial Blood pH 7.36 (7.35-7.45) Arterial Blood pCO2 at Patient Temp 59 mmHg (35-46) Arterial Blood pO2 at Patient Temp 69 mmHg (75-108) Arterial Blood HCO3 33 mmol/L (21-28) Arterial Blood Base Excess 6 mmol/L (-3-3) FiO2 36 Review of Systems Review of Systems Gen: + fatigue, no fevers or chills CV: No CP or palp Resp: + SOB, + Wheezing Assessment and Plan Assessmemt and Plan Assessment: COPD exacerbation Resp distress SOB cough previous tobacco abuse CAD Plan: Pt seen at bedside in the ICU on NC continue breathing tx cont steroids cont abx Pulm and cardio following recheck labs reviewed imaging pt/ot Pt continues to improve likely transfer to medical floor appreciate subspec input-move forward with their plan of care Will continue monitoring Problems: Comment Review of Relevant I have reviewed the following items paulette (where applicable) has been applied. Labs Laboratory Tests Test 03/27/17 00:10 03/27/17 16:07 03/27/17 19:20 03/28/17 06:30 Troponin I Quantitative 0.019 ng/mL (0.000-0.055) < 0.017 ng/mL (0.000-0.055) 0.020 ng/mL (0.000-0.055) White Blood Count 7.6 x10^3/uL (4.0-11.0) 5.3 x10^3/uL (4.0-11.0) Red Blood Count 4.51 x10^6/uL (3.50-5.40) 4.11 x10^6/uL (3.50-5.40) Hemoglobin 13.2 g/dL (12.0-15.5) 11.9 g/dL (12.0-15.5) Hematocrit 40.2 % (36.0-47.0) 36.4 % (36.0-47.0) Mean Corpuscular Volume 89 fL (79-100) 89 fL (79-100) Mean Corpuscular Hemoglobin 29 pg (25-35) 29 pg (25-35) Mean Corpuscular Hemoglobin Concent 33 g/dL (31-37) 33 g/dL (31-37) Red Cell Distribution Width 14.6 % (11.5-14.5) 14.5 % (11.5-14.5) Platelet Count 248 x10^3/uL (140-400) 225 x10^3/uL (140-400) Neutrophils (%) (Auto) 37 % (31-73) 81 % (31-73) Lymphocytes (%) (Auto) 37 % (24-48) 17 % (24-48) Monocytes (%) (Auto) 12 % (0-9) 2 % (0-9) Eosinophils (%) (Auto) 13 % (0-3) 0 % (0-3) Basophils (%) (Auto) 1 % (0-3) 1 % (0-3) Neutrophils # (Auto) 2.8 x10^3uL (1.8-7.7) 4.3 x10^3uL (1.8-7.7) Lymphocytes # (Auto) 2.8 x10^3/uL (1.0-4.8) 0.9 x10^3/uL (1.0-4.8) Monocytes # (Auto) 0.9 x10^3/uL (0.0-1.1) 0.1 x10^3/uL (0.0-1.1) Eosinophils # (Auto) 1.0 x10^3/uL (0.0-0.7) 0.0 x10^3/uL (0.0-0.7) Basophils # (Auto) 0.1 x10^3/uL (0.0-0.2) 0.0 x10^3/uL (0.0-0.2) Sodium Level 143 mmol/L (136-145) 140 mmol/L (136-145) Potassium Level 3.5 mmol/L (3.5-5.1) 4.6 mmol/L (3.5-5.1) Chloride Level 102 mmol/L (98-107) 103 mmol/L (98-107) Carbon Dioxide Level 37 mmol/L (21-32) 32 mmol/L (21-32) Anion Gap 4 (6-14) 5 (6-14) Blood Urea Nitrogen 11 mg/dL (7-20) 11 mg/dL (7-20) Creatinine 0.8 mg/dL (0.6-1.0) 0.8 mg/dL (0.6-1.0) Estimated GFR (Cockcroft-Gault) 89.1 89.1 Glucose Level 130 mg/dL (70-99) 182 mg/dL (70-99) Calcium Level 9.4 mg/dL (8.5-10.1) 8.6 mg/dL (8.5-10.1) Magnesium Level 2.0 mg/dL (1.8-2.4) Total Bilirubin 0.3 mg/dL (0.2-1.0) Direct Bilirubin 0.1 mg/dL (0.0-0.2) Aspartate Amino Transf (AST/SGOT) 36 U/L (15-37) Alanine Aminotransferase (ALT/SGPT) 36 U/L (14-59) Alkaline Phosphatase 66 U/L (46-116) Creatine Kinase 587 U/L (26-192) Creatine Kinase MB (Mass) 5.9 ng/mL (0.0-3.6) Creatine Kinase MB Relative Index 1.0 % (0-4) RG-Hto-G-Type Natriuretic Peptide 191 pg/mL (0-124) Total Protein 7.5 g/dL (6.4-8.2) Albumin 3.9 g/dL (3.4-5.0) O2 Saturation 93 % (92-99) Arterial Blood pH 7.36 (7.35-7.45) Arterial Blood pCO2 at Patient Temp 59 mmHg (35-46) Arterial Blood pO2 at Patient Temp 69 mmHg (75-108) Arterial Blood HCO3 33 mmol/L (21-28) Arterial Blood Base Excess 6 mmol/L (-3-3) FiO2 36 Laboratory Tests Test 03/27/17 16:07 03/27/17 19:20 03/28/17 06:30 White Blood Count 7.6 x10^3/uL (4.0-11.0) 5.3 x10^3/uL (4.0-11.0) Red Blood Count 4.51 x10^6/uL (3.50-5.40) 4.11 x10^6/uL (3.50-5.40) Hemoglobin 13.2 g/dL (12.0-15.5) 11.9 g/dL (12.0-15.5) Hematocrit 40.2 % (36.0-47.0) 36.4 % (36.0-47.0) Mean Corpuscular Volume 89 fL (79-100) 89 fL (79-100) Mean Corpuscular Hemoglobin 29 pg (25-35) 29 pg (25-35) Mean Corpuscular Hemoglobin Concent 33 g/dL (31-37) 33 g/dL (31-37) Red Cell Distribution Width 14.6 % (11.5-14.5) 14.5 % (11.5-14.5) Platelet Count 248 x10^3/uL (140-400) 225 x10^3/uL (140-400) Neutrophils (%) (Auto) 37 % (31-73) 81 % (31-73) Lymphocytes (%) (Auto) 37 % (24-48) 17 % (24-48) Monocytes (%) (Auto) 12 % (0-9) 2 % (0-9) Eosinophils (%) (Auto) 13 % (0-3) 0 % (0-3) Basophils (%) (Auto) 1 % (0-3) 1 % (0-3) Neutrophils # (Auto) 2.8 x10^3uL (1.8-7.7) 4.3 x10^3uL (1.8-7.7) Lymphocytes # (Auto) 2.8 x10^3/uL (1.0-4.8) 0.9 x10^3/uL (1.0-4.8) Monocytes # (Auto) 0.9 x10^3/uL (0.0-1.1) 0.1 x10^3/uL (0.0-1.1) Eosinophils # (Auto) 1.0 x10^3/uL (0.0-0.7) 0.0 x10^3/uL (0.0-0.7) Basophils # (Auto) 0.1 x10^3/uL (0.0-0.2) 0.0 x10^3/uL (0.0-0.2) Sodium Level 143 mmol/L (136-145) 140 mmol/L (136-145) Potassium Level 3.5 mmol/L (3.5-5.1) 4.6 mmol/L (3.5-5.1) Chloride Level 102 mmol/L (98-107) 103 mmol/L (98-107) Carbon Dioxide Level 37 mmol/L (21-32) 32 mmol/L (21-32) Anion Gap 4 (6-14) 5 (6-14) Blood Urea Nitrogen 11 mg/dL (7-20) 11 mg/dL (7-20) Creatinine 0.8 mg/dL (0.6-1.0) 0.8 mg/dL (0.6-1.0) Estimated GFR (Cockcroft-Gault) 89.1 89.1 Glucose Level 130 mg/dL (70-99) 182 mg/dL (70-99) Calcium Level 9.4 mg/dL (8.5-10.1) 8.6 mg/dL (8.5-10.1) Magnesium Level 2.0 mg/dL (1.8-2.4) Total Bilirubin 0.3 mg/dL (0.2-1.0) Direct Bilirubin 0.1 mg/dL (0.0-0.2) Aspartate Amino Transf (AST/SGOT) 36 U/L (15-37) Alanine Aminotransferase (ALT/SGPT) 36 U/L (14-59) Alkaline Phosphatase 66 U/L (46-116) Creatine Kinase 587 U/L (26-192) Creatine Kinase MB (Mass) 5.9 ng/mL (0.0-3.6) Creatine Kinase MB Relative Index 1.0 % (0-4) Troponin I Quantitative < 0.017 ng/mL (0.000-0.055) 0.020 ng/mL (0.000-0.055) DD-Bgg-Z-Type Natriuretic Peptide 191 pg/mL (0-124) Total Protein 7.5 g/dL (6.4-8.2) Albumin 3.9 g/dL (3.4-5.0) O2 Saturation 93 % (92-99) Arterial Blood pH 7.36 (7.35-7.45) Arterial Blood pCO2 at Patient Temp 59 mmHg (35-46) Arterial Blood pO2 at Patient Temp 69 mmHg (75-108) Arterial Blood HCO3 33 mmol/L (21-28) Arterial Blood Base Excess 6 mmol/L (-3-3) FiO2 36 Medications Current Medications Albuterol/ Ipratropium (Duoneb) 3 ml 1X ONCE NEB Last administered on 16:16; Start 03/27/17 at 16:15; Stop 03/27/17 at 16:16; Status DC Methylprednisolone Sodium Succinate (SOLU-Medrol 125MG VIAL) 125 mg 1X ONCE IV Last administered on 03/27/17 16:25; Start 03/27/17 at 16:15; Stop at 16:16; Status DC Azithromycin 250 ml @ 250 mls/hr 1X ONCE IV Last administered on 03/27/17 16:32; Start 03/27/17 at 16:15; Stop 03/27/17 at 17:14; Status DC Ceftriaxone Sodium 50 ml @ 100 mls/hr 1X ONCE IV Last administered on 20:34; Start 03/27/17 at 17:45; Stop 03/27/17 at 18:14; Status DC Magnesium Sulfate/ Dextrose 50 ml @ 25 mls/hr 1X ONCE IV Last administered on 03/27/17 17:31; Start 03/27/17 at 18:00; Stop 03/27/17 at 19:59; Status DC Albuterol/ Ipratropium (Duoneb) 3 ml 1X ONCE NEB ; Start 03/27/17 at 18:00; Stop 03/27/17 at 18:01; Status DC Ondansetron HCl (Zofran) 4 mg PRN Q8HRS PRN IV NAUSEA/VOMITING; Start at 17:30; Stop 03/28/17 at 17:29 Albuterol/ Ipratropium (Duoneb) 3 ml RTQID NEB ; Start 03/27/17 at 20:00; Stop 03/27/17 at 20:00; Status DC Methylprednisolone Sodium Succinate (SOLU-Medrol 40MG VIAL) 40 mg Q8HRS IV ; Start 03/27/17 at 22:00; Stop 03/27/17 at 22:00; Status DC Albuterol/ Ipratropium (Duoneb) 3 ml Q4HRS NEB ; Start 03/27/17 at 20:00; Stop 03/27/17 at 20:06; Status DC Methylprednisolone Sodium Succinate (SOLU-Medrol 40MG VIAL) 40 mg Q8HRS IV Last administered on 03/28/17 05:17; Start 03/27/17 at 22:00 Budesonide (Pulmicort) 0.5 mg RTBID NEB ; Start 03/27/17 at 20:00; Stop at 20:06; Status DC Oxymetazoline HCl (Afrin) 2 spray PRN BID PRN NS NASAL STUFFINESS; Start 03/27 at 19:15 Oxymetazoline HCl (Afrin) 2 spray 1X ONCE NS Last administered on 03/27/17 20:33; Start 03/27/17 at 19:30; Stop 03/27/17 at 19:31; Status DC Albuterol Sulfate (Ventolin Hfa) 1 puff QID IH ; Start 03/27/17 at 21:00; Stop 03/27/17 at 21:00; Status DC Albuterol Sulfate (Ventolin Neb Soln) 2.5 mg PRN Q4HRS PRN NEB SHORTNESS OF BREATH Last administered on 03/28/17 04:52; Start 03/27/17 at 19:45 Aspirin (Ecotrin) 81 mg DAILY PO Last administered on 03/28/17 09:22; Start 03/28/17 at 09:00 Fluticasone Propionate (Flonase) 2 spray DAILY NS Last administered on 09:24; Start 03/28/17 at 09:00 Furosemide (Lasix) 20 mg DAILY PO Last administered on 03/28/17 09:22; Start 03/28/17 at 09:00 Albuterol/ Ipratropium (Duoneb) 3 ml RTQID IH Last administered on 03/28/17 12:16; Start 03/27/17 at 21:00 Montelukast Sodium (Singulair) 10 mg DAILY PO Last administered on 03/28/17 09:22; Start 03/28/17 at 09:00 Prednisone (Prednisone) 10 mg DAILY PO Last administered on 03/28/17 09:23; Start 03/28/17 at 09:00; Stop 03/28/17 at 10:43; Status DC Sertraline HCl (Zoloft) 50 mg DAILY PO Last administered on 03/28/17 09:23; Start 03/28/17 at 09:00 Non-Formulary Medication 10.2 gm BID IH ; Start 03/27/17 at 21:00; Stop at 21:00; Status DC Pantoprazole Sodium (Protonix) 40 mg DAILYAC PO Last administered on 09:22; Start 03/28/17 at 07:30 Potassium Chloride (Klor-Con) 10 meq [id number] PO Last administered on 09:23; Start 03/28/17 at 08:00 Budesonide (Pulmicort) 0.5 mg RTBID NEB Last administered on 03/28/17 07:38; Start 03/27/17 at 21:00 Promethazine HCl/ Codeine (Phenergan With Codeine) 5 ml PRN Q4HRS PRN PO COUGH Last administered on 03/28/17 04:47; Start 03/27/17 at 22:30 Acetaminophen/ Hydrocodone Bitart (Lortab 5/325) 1 tab PRN Q4HRS PRN PO MODERATE PAIN; Start 03/28/17 at 03:30; Stop 03/28/17 at 03:50; Status DC Ibuprofen (Motrin) 600 mg PRN Q6HRS PRN PO INFLAMMATION Last administered on 05:17; Start 03/28/17 at 04:45 Active Scripts Active Prednisone 10 Mg Tablet 10 Mg PO DAILY 4 by mouth daily for 3 days then 3 by mouth daily for 3 days then 2 by mouth daily for 3 days then 1 by mouth daily for 3 days Potassium Chloride 10 Meq Capsule.er 1 Cap PO DAILY Fluticasone Propionate Nasal [place] (Fluticasone Propionate) 1 [place] 2 [place] NS DAILY Zoloft (Sertraline Hcl) 50 Mg Tablet 50 Mg PO DAILY Reported Albuterol Sulfate Neb Soln (Albuterol Sulfate) 2.5 Mg/3 Ml Vial.neb 2.5 Mg NEB Q4HRS PRN Nexium Capsule (Esomeprazole Magnesium) 40 Mg Capsule. 40 Mg PO DAILYAC Singulair Tablet (Montelukast Sodium) 10 Mg Tablet 1 Tab PO DAILY Lasix (Furosemide) 20 Mg Tablet 1 Tab PO DAILY Symbicort 160-4.5 Mcg Inhaler (Budesonide/Formoterol Fumarate) 10.2 Gm Hfa.aer.ad 10.2 Gm IH BID Albuterol Sulfate Hfa Inhaler (Albuterol Sulfate) 8.5 Gm Hfa.aer.ad 8.5 Gm IH PRN Duoneb 0.5 Mg-3 Mg/3 Ml Soln (Ipratropium/Albuterol Sulfate) 3 Ml Ampul.neb 3 Ml IH QID Aspir 81 (Aspirin) 81 Mg Tablet. 81 Mg PO DAILY Vitals/I & O Vital Sign - Last 24 Hours 03/27/17 03/27/17 03/27/17 03/27/17 16:04 16:13 16:29 17:12 Temp 98.1 98.1 Pulse 92 60 66 Resp 24 26 B/P (MAP) 155/115 (128) 142/102 (115) 179/95 (123) Pulse Ox 95 94 90 92 O2 Delivery Nasal Cannula Nasal Cannula Nasal Cannula Nasal Cannula O2 Flow Rate 3.0 2.0 3.0 3.0 03/27/17 03/27/17 03/27/17 03/27/17 17:25 17:26 17:34 17:40 Pulse 129 126 103 Resp 24 21 B/P (MAP) 175/103 (127) 159/84 (109) 119/77 (91) Pulse Ox 95 96 94 95 O2 Delivery Nasal Cannula Nasal Cannula BiPAP/CPAP O2 Flow Rate 3.0 5.0 5.0 3.0 03/27/17 03/27/17 03/27/17 03/27/17 17:53 19:00 20:00 20:00 Temp 97.9 97.9 Pulse 96 100 114 Resp 26 B/P (MAP) 106/68 (81) 131/87 (102) 116/72 (87) Pulse Ox 93 92 93 O2 Delivery Nasal Cannula Nasal Cannula Nasal Cannula Nasal Cannula O2 Flow Rate 3.0 3.0 3.0 3.0 03/27/17 03/27/17 03/27/17 03/27/17 20:00 20:20 21:00 21:00 Pulse 114 102 102 B/P (MAP) 116/72 (87) 126/84 (98) 126/84 (98) Pulse Ox 92 95 94 93 O2 Delivery Nasal Cannula Nasal Cannula Nasal Cannula Nasal Cannula O2 Flow Rate 3.0 4.0 3.0 3.0 03/27/17 03/27/17 03/27/17 03/27/17 22:00 22:00 23:00 23:00 Temp 97.9 98.2 97.9 98.2 Pulse 104 104 106 106 B/P (MAP) 114/80 (91) 114/80 (91) 125/75 (92) 125/75 (92) Pulse Ox 94 92 92 92 O2 Delivery Nasal Cannula Nasal Cannula Nasal Cannula Nasal Cannula O2 Flow Rate 3.0 3.0 3.0 4.0 03/28/17 03/28/17 03/28/17 03/28/17 00:00 00:00 00:00 00:55 Pulse 110 110 B/P (MAP) 121/78 (92) 121/78 (92) Pulse Ox 94 94 95 O2 Delivery Nasal Cannula Nasal Cannula Nasal Cannula Nasal Cannula O2 Flow Rate 3.0 3.0 4.0 4.0 03/28/17 03/28/17 03/28/17 03/28/17 01:00 01:00 02:00 02:00 Pulse 104 104 90 90 B/P (MAP) 118/80 (93) 118/80 (93) 133/96 (108) 133/96 (108) Pulse Ox 95 95 94 94 O2 Delivery Nasal Cannula Nasal Cannula Nasal Cannula Nasal Cannula O2 Flow Rate 4.0 3.0 5.0 3.0 03/28/17 03/28/17 03/28/17 03/28/17 02:23 03:00 04:00 04:00 Temp 98.2 98.2 Pulse 90 91 B/P (MAP) 121/73 (89) 117/64 (81) Pulse Ox 90 94 O2 Delivery Nasal Cannula Nasal Cannula Nasal Cannula Nasal Cannula O2 Flow Rate 3.0 4.0 3.0 4.0 03/28/17 03/28/17 03/28/17 03/28/17 04:53 05:00 06:00 07:44 Pulse 88 85 B/P (MAP) 111/73 (86) 115/75 (88) Pulse Ox 93 92 92 95 O2 Delivery Nasal Cannula Nasal Cannula Nasal Cannula Nasal Cannula O2 Flow Rate 4.0 3.0 3.0 4.0 03/28/17 12:17 Pulse Ox 95 O2 Delivery Nasal Cannula O2 Flow Rate 4.0 LAVELLE AMBROSIO III DO Mar 28, 2017 13:18
[2017-03-28] MEDS ORDERED: FUROSEMIDE 40 MG/4 ML VIAL. IVP ONE (14:30)
--- NOTE | 2017-03-28 15:14 | PDOC2 ---
CONSULT Date of Consult Date of Consult DATE: 03/28/17 TIME: 15:07 Reason for Consult Reason for Consult: Dyspnea Referring Physician Referring Physician: Dr Rivera Identification/Chief Complaint Chief Complaint Dyspnea Problems: History of Present Illness Reason for Visit: This lady is a pleasant 56-year-old that I have known for over 20 years. She has severe COPD and is O2 dependent. The patient was at home and has been having some deterioration of her breathing for several days and she started taking a Z-Stuart as well as by mouth steroids and increasing her inhalers frequency. She was not improving with that and came to the ER where she was found to be in acute respiratory distress and he was decided to admit her for further treatment. The patient has cor pulmonale. At the time that I saw her she is not having any chest pains, no palpitations, no loss of consciousness. Past Medical History Cardiovascular: HTN Pulmonary: Bronchitis, COPD Psych: Depression Past Surgical History Past Surgical History: Other Family History Family History: Hypertension Social History ALCOHOL: none Drugs: None Current Medications Current Medications Current Medications Albuterol/ Ipratropium (Duoneb) 3 ml 1X ONCE NEB Last administered on 16:16; Start 03/27/17 at 16:15; Stop 03/27/17 at 16:16; Status DC Methylprednisolone Sodium Succinate (SOLU-Medrol 125MG VIAL) 125 mg 1X ONCE IV Last administered on 03/27/17 16:25; Start 03/27/17 at 16:15; Stop at 16:16; Status DC Azithromycin 250 ml @ 250 mls/hr 1X ONCE IV Last administered on 03/27/17 16:32; Start 03/27/17 at 16:15; Stop 03/27/17 at 17:14; Status DC Ceftriaxone Sodium 50 ml @ 100 mls/hr 1X ONCE IV Last administered on 20:34; Start 03/27/17 at 17:45; Stop 03/27/17 at 18:14; Status DC Magnesium Sulfate/ Dextrose 50 ml @ 25 mls/hr 1X ONCE IV Last administered on 03/27/17 17:31; Start 03/27/17 at 18:00; Stop 03/27/17 at 19:59; Status DC Albuterol/ Ipratropium (Duoneb) 3 ml 1X ONCE NEB ; Start 03/27/17 at 18:00; Stop 03/27/17 at 18:01; Status DC Ondansetron HCl (Zofran) 4 mg PRN Q8HRS PRN IV NAUSEA/VOMITING; Start at 17:30; Stop 03/28/17 at 17:29 Albuterol/ Ipratropium (Duoneb) 3 ml RTQID NEB ; Start 03/27/17 at 20:00; Stop 03/27/17 at 20:00; Status DC Methylprednisolone Sodium Succinate (SOLU-Medrol 40MG VIAL) 40 mg Q8HRS IV ; Start 03/27/17 at 22:00; Stop 03/27/17 at 22:00; Status DC Albuterol/ Ipratropium (Duoneb) 3 ml Q4HRS NEB ; Start 03/27/17 at 20:00; Stop 03/27/17 at 20:06; Status DC Methylprednisolone Sodium Succinate (SOLU-Medrol 40MG VIAL) 40 mg Q8HRS IV Last administered on 03/28/17 14:10; Start 03/27/17 at 22:00 Budesonide (Pulmicort) 0.5 mg RTBID NEB ; Start 03/27/17 at 20:00; Stop at 20:06; Status DC Oxymetazoline HCl (Afrin) 2 spray PRN BID PRN NS NASAL STUFFINESS; Start 03/27 at 19:15 Oxymetazoline HCl (Afrin) 2 spray 1X ONCE NS Last administered on 03/27/17 20:33; Start 03/27/17 at 19:30; Stop 03/27/17 at 19:31; Status DC Albuterol Sulfate (Ventolin Hfa) 1 puff QID IH ; Start 03/27/17 at 21:00; Stop 03/27/17 at 21:00; Status DC Albuterol Sulfate (Ventolin Neb Soln) 2.5 mg PRN Q4HRS PRN NEB SHORTNESS OF BREATH Last administered on 03/28/17 04:52; Start 03/27/17 at 19:45 Aspirin (Ecotrin) 81 mg DAILY PO Last administered on 03/28/17 09:22; Start 03/28/17 at 09:00 Fluticasone Propionate (Flonase) 2 spray DAILY NS Last administered on 09:24; Start 03/28/17 at 09:00 Furosemide (Lasix) 20 mg DAILY PO Last administered on 03/28/17 09:22; Start 03/28/17 at 09:00 Albuterol/ Ipratropium (Duoneb) 3 ml RTQID IH Last administered on 03/28/17 12:16; Start 03/27/17 at 21:00 Montelukast Sodium (Singulair) 10 mg DAILY PO Last administered on 03/28/17 09:22; Start 03/28/17 at 09:00 Prednisone (Prednisone) 10 mg DAILY PO Last administered on 03/28/17 09:23; Start 03/28/17 at 09:00; Stop 03/28/17 at 10:43; Status DC Sertraline HCl (Zoloft) 50 mg DAILY PO Last administered on 03/28/17 09:23; Start 03/28/17 at 09:00 Non-Formulary Medication 10.2 gm BID IH ; Start 03/27/17 at 21:00; Stop at 21:00; Status DC Pantoprazole Sodium (Protonix) 40 mg DAILYAC PO Last administered on 09:22; Start 03/28/17 at 07:30 Potassium Chloride (Klor-Con) 10 meq DAILYWBKFT PO Last administered on 09:23; Start 03/28/17 at 08:00 Budesonide (Pulmicort) 0.5 mg RTBID NEB Last administered on 03/28/17 07:38; Start 03/27/17 at 21:00 Promethazine HCl/ Codeine (Phenergan With Codeine) 5 ml PRN Q4HRS PRN PO COUGH Last administered on 03/28/17 14:11; Start 03/27/17 at 22:30 Acetaminophen/ Hydrocodone Bitart (Lortab 5/325) 1 tab PRN Q4HRS PRN PO MODERATE PAIN; Start 03/28/17 at 03:30; Stop 03/28/17 at 03:50; Status DC Ibuprofen (Motrin) 600 mg PRN Q6HRS PRN PO INFLAMMATION Last administered on 10 /15/17at 05:17; Start 03/28/17 at 04:45 Furosemide (Lasix) 40 mg 1X ONCE IVP ; Start 03/28/17 at 14:30; Stop at 14:31; Status DC Active Scripts Active Prednisone 10 Mg Tablet 10 Mg PO DAILY 4 by mouth daily for 3 days then 3 by mouth daily for 3 days then 2 by mouth daily for 3 days then 1 by mouth daily for 3 days Potassium Chloride 10 Meq Capsule.er 1 Cap PO DAILY Fluticasone Propionate Nasal [place] (Fluticasone Propionate) 1 [place] 2 [place] NS DAILY Zoloft (Sertraline Hcl) 50 Mg Tablet 50 Mg PO DAILY Reported Albuterol Sulfate Neb Soln (Albuterol Sulfate) 2.5 Mg/3 Ml Vial.neb 2.5 Mg NEB Q4HRS PRN Nexium Capsule (Esomeprazole Magnesium) 40 Mg Capsule. 40 Mg PO DAILYAC Singulair Tablet (Montelukast Sodium) 10 Mg Tablet 1 Tab PO DAILY Lasix (Furosemide) 20 Mg Tablet 1 Tab PO DAILY Symbicort 160-4.5 Mcg Inhaler (Budesonide/Formoterol Fumarate) 10.2 Gm Hfa.aer.ad 10.2 Gm IH BID Albuterol Sulfate Hfa Inhaler (Albuterol Sulfate) 8.5 Gm Hfa.aer.ad 8.5 Gm IH PRN Duoneb 0.5 Mg-3 Mg/3 Ml Soln (Ipratropium/Albuterol Sulfate) 3 Ml Ampul.neb 3 Ml IH QID Aspir 81 (Aspirin) 81 Mg Tablet. 81 Mg PO DAILY Allergies Allergies: Coded Allergies: Penicillins (Verified Allergy, Intermediate, rash, 03/03/16) morphine (Verified Allergy, Intermediate, Rash-PERCOCET [place], 03/03/16) Physical Exam General: Alert, Oriented X3, Cooperative HEENT: PERRLA, Other (JVD up to the angle of the jaw at 90) Lungs: Other (markedly decreased air movement. No Rales, no rhonchi, mild wheezing over mid orozco) Heart: Regular rate, Normal S1, Normal S2 Abdomen: Normal bowel sounds, Soft Extremities: Other (1+ edema) Vitals VITALS Vital Signs Date Time Temp Pulse Resp B/P (MAP) Pulse Ox O2 Delivery O2 Flow Rate FiO2 03/28/17 12:17 95 Nasal Cannula 4.0 03/28/17 06:00 85 115/75 (88) 03/28/17 03:00 98.2 98.2 03/27/17 17:53 26 Labs Labs Laboratory Tests Test 03/27/17 00:10 03/27/17 16:07 03/27/17 19:20 03/28/17 06:30 Troponin I Quantitative 0.019 ng/mL (0.000-0.055) < 0.017 ng/mL (0.000-0.055) 0.020 ng/mL (0.000-0.055) White Blood Count 7.6 x10^3/uL (4.0-11.0) 5.3 x10^3/uL (4.0-11.0) Red Blood Count 4.51 x10^6/uL (3.50-5.40) 4.11 x10^6/uL (3.50-5.40) Hemoglobin 13.2 g/dL (12.0-15.5) 11.9 g/dL (12.0-15.5) Hematocrit 40.2 % (36.0-47.0) 36.4 % (36.0-47.0) Mean Corpuscular Volume 89 fL (79-100) 89 fL (79-100) Mean Corpuscular Hemoglobin 29 pg (25-35) 29 pg (25-35) Mean Corpuscular Hemoglobin Concent 33 g/dL (31-37) 33 g/dL (31-37) Red Cell Distribution Width 14.6 % (11.5-14.5) 14.5 % (11.5-14.5) Platelet Count 248 x10^3/uL (140-400) 225 x10^3/uL (140-400) Neutrophils (%) (Auto) 37 % (31-73) 81 % (31-73) Lymphocytes (%) (Auto) 37 % (24-48) 17 % (24-48) Monocytes (%) (Auto) 12 % (0-9) 2 % (0-9) Eosinophils (%) (Auto) 13 % (0-3) 0 % (0-3) Basophils (%) (Auto) 1 % (0-3) 1 % (0-3) Neutrophils # (Auto) 2.8 x10^3uL (1.8-7.7) 4.3 x10^3uL (1.8-7.7) Lymphocytes # (Auto) 2.8 x10^3/uL (1.0-4.8) 0.9 x10^3/uL (1.0-4.8) Monocytes # (Auto) 0.9 x10^3/uL (0.0-1.1) 0.1 x10^3/uL (0.0-1.1) Eosinophils # (Auto) 1.0 x10^3/uL (0.0-0.7) 0.0 x10^3/uL (0.0-0.7) Basophils # (Auto) 0.1 x10^3/uL (0.0-0.2) 0.0 x10^3/uL (0.0-0.2) Sodium Level 143 mmol/L (136-145) 140 mmol/L (136-145) Potassium Level 3.5 mmol/L (3.5-5.1) 4.6 mmol/L (3.5-5.1) Chloride Level 102 mmol/L (98-107) 103 mmol/L (98-107) Carbon Dioxide Level 37 mmol/L (21-32) 32 mmol/L (21-32) Anion Gap 4 (6-14) 5 (6-14) Blood Urea Nitrogen 11 mg/dL (7-20) 11 mg/dL (7-20) Creatinine 0.8 mg/dL (0.6-1.0) 0.8 mg/dL (0.6-1.0) Estimated GFR (Cockcroft-Gault) 89.1 89.1 Glucose Level 130 mg/dL (70-99) 182 mg/dL (70-99) Calcium Level 9.4 mg/dL (8.5-10.1) 8.6 mg/dL (8.5-10.1) Magnesium Level 2.0 mg/dL (1.8-2.4) Total Bilirubin 0.3 mg/dL (0.2-1.0) Direct Bilirubin 0.1 mg/dL (0.0-0.2) Aspartate Amino Transf (AST/SGOT) 36 U/L (15-37) Alanine Aminotransferase (ALT/SGPT) 36 U/L (14-59) Alkaline Phosphatase 66 U/L (46-116) Creatine Kinase 587 U/L (26-192) Creatine Kinase MB (Mass) 5.9 ng/mL (0.0-3.6) Creatine Kinase MB Relative Index 1.0 % (0-4) FV-Fxu-C-Type Natriuretic Peptide 191 pg/mL (0-124) Total Protein 7.5 g/dL (6.4-8.2) Albumin 3.9 g/dL (3.4-5.0) O2 Saturation 93 % (92-99) Arterial Blood pH 7.36 (7.35-7.45) Arterial Blood pCO2 at Patient Temp 59 mmHg (35-46) Arterial Blood pO2 at Patient Temp 69 mmHg (75-108) Arterial Blood HCO3 33 mmol/L (21-28) Arterial Blood Base Excess 6 mmol/L (-3-3) FiO2 36 Laboratory Tests Test 03/27/17 16:07 03/27/17 19:20 03/28/17 06:30 White Blood Count 7.6 x10^3/uL (4.0-11.0) 5.3 x10^3/uL (4.0-11.0) Red Blood Count 4.51 x10^6/uL (3.50-5.40) 4.11 x10^6/uL (3.50-5.40) Hemoglobin 13.2 g/dL (12.0-15.5) 11.9 g/dL (12.0-15.5) Hematocrit 40.2 % (36.0-47.0) 36.4 % (36.0-47.0) Mean Corpuscular Volume 89 fL (79-100) 89 fL (79-100) Mean Corpuscular Hemoglobin 29 pg (25-35) 29 pg (25-35) Mean Corpuscular Hemoglobin Concent 33 g/dL (31-37) 33 g/dL (31-37) Red Cell Distribution Width 14.6 % (11.5-14.5) 14.5 % (11.5-14.5) Platelet Count 248 x10^3/uL (140-400) 225 x10^3/uL (140-400) Neutrophils (%) (Auto) 37 % (31-73) 81 % (31-73) Lymphocytes (%) (Auto) 37 % (24-48) 17 % (24-48) Monocytes (%) (Auto) 12 % (0-9) 2 % (0-9) Eosinophils (%) (Auto) 13 % (0-3) 0 % (0-3) Basophils (%) (Auto) 1 % (0-3) 1 % (0-3) Neutrophils # (Auto) 2.8 x10^3uL (1.8-7.7) 4.3 x10^3uL (1.8-7.7) Lymphocytes # (Auto) 2.8 x10^3/uL (1.0-4.8) 0.9 x10^3/uL (1.0-4.8) Monocytes # (Auto) 0.9 x10^3/uL (0.0-1.1) 0.1 x10^3/uL (0.0-1.1) Eosinophils # (Auto) 1.0 x10^3/uL (0.0-0.7) 0.0 x10^3/uL (0.0-0.7) Basophils # (Auto) 0.1 x10^3/uL (0.0-0.2) 0.0 x10^3/uL (0.0-0.2) Sodium Level 143 mmol/L (136-145) 140 mmol/L (136-145) Potassium Level 3.5 mmol/L (3.5-5.1) 4.6 mmol/L (3.5-5.1) Chloride Level 102 mmol/L (98-107) 103 mmol/L (98-107) Carbon Dioxide Level 37 mmol/L (21-32) 32 mmol/L (21-32) Anion Gap 4 (6-14) 5 (6-14) Blood Urea Nitrogen 11 mg/dL (7-20) 11 mg/dL (7-20) Creatinine 0.8 mg/dL (0.6-1.0) 0.8 mg/dL (0.6-1.0) Estimated GFR (Cockcroft-Gault) 89.1 89.1 Glucose Level 130 mg/dL (70-99) 182 mg/dL (70-99) Calcium Level 9.4 mg/dL (8.5-10.1) 8.6 mg/dL (8.5-10.1) Magnesium Level 2.0 mg/dL (1.8-2.4) Total Bilirubin 0.3 mg/dL (0.2-1.0) Direct Bilirubin 0.1 mg/dL (0.0-0.2) Aspartate Amino Transf (AST/SGOT) 36 U/L (15-37) Alanine Aminotransferase (ALT/SGPT) 36 U/L (14-59) Alkaline Phosphatase 66 U/L (46-116) Creatine Kinase 587 U/L (26-192) Creatine Kinase MB (Mass) 5.9 ng/mL (0.0-3.6) Creatine Kinase MB Relative Index 1.0 % (0-4) Troponin I Quantitative < 0.017 ng/mL (0.000-0.055) 0.020 ng/mL (0.000-0.055) HL-Iom-B-Type Natriuretic Peptide 191 pg/mL (0-124) Total Protein 7.5 g/dL (6.4-8.2) Albumin 3.9 g/dL (3.4-5.0) O2 Saturation 93 % (92-99) Arterial Blood pH 7.36 (7.35-7.45) Arterial Blood pCO2 at Patient Temp 59 mmHg (35-46) Arterial Blood pO2 at Patient Temp 69 mmHg (75-108) Arterial Blood HCO3 33 mmol/L (21-28) Arterial Blood Base Excess 6 mmol/L (-3-3) FiO2 36 Assessment/Plan Assessment/Plan This patient comes in in acute respiratory distress secondary to a COPD exacerbation. She has cor pulmonale and right heart failure due to that. Would like to give her some IV Lasix and get an echocardiogram to evaluate her current cardiac condition. Thank you very much for asking me to participate in the care of this patient. BING GAMBLE MD Mar 28, 2017 15:14
--- NOTE | 2017-03-28 16:09 | PDOC ---
PULMONARY PROGRESS NOTES Vitals Vital Signs Date Time Temp Pulse Resp B/P (MAP) Pulse Ox O2 Delivery O2 Flow Rate FiO2 03/28/17 15:55 96 Nasal Cannula 4.0 03/28/17 06:00 85 115/75 (88) 03/28/17 03:00 98.2 98.2 03/27/17 17:53 26 HEENT: Other Lungs: Wheezing Cardiovascular: S1, S2 Abdomen: Soft, Non-tender, Other Extremities: Other (edema) Labs Laboratory Tests Test 03/27/17 00:10 03/27/17 16:07 03/27/17 19:20 03/28/17 06:30 Troponin I Quantitative 0.019 ng/mL (0.000-0.055) < 0.017 ng/mL (0.000-0.055) 0.020 ng/mL (0.000-0.055) White Blood Count 7.6 x10^3/uL (4.0-11.0) 5.3 x10^3/uL (4.0-11.0) Red Blood Count 4.51 x10^6/uL (3.50-5.40) 4.11 x10^6/uL (3.50-5.40) Hemoglobin 13.2 g/dL (12.0-15.5) 11.9 g/dL (12.0-15.5) Hematocrit 40.2 % (36.0-47.0) 36.4 % (36.0-47.0) Mean Corpuscular Volume 89 fL (79-100) 89 fL (79-100) Mean Corpuscular Hemoglobin 29 pg (25-35) 29 pg (25-35) Mean Corpuscular Hemoglobin Concent 33 g/dL (31-37) 33 g/dL (31-37) Red Cell Distribution Width 14.6 % (11.5-14.5) 14.5 % (11.5-14.5) Platelet Count 248 x10^3/uL (140-400) 225 x10^3/uL (140-400) Neutrophils (%) (Auto) 37 % (31-73) 81 % (31-73) Lymphocytes (%) (Auto) 37 % (24-48) 17 % (24-48) Monocytes (%) (Auto) 12 % (0-9) 2 % (0-9) Eosinophils (%) (Auto) 13 % (0-3) 0 % (0-3) Basophils (%) (Auto) 1 % (0-3) 1 % (0-3) Neutrophils # (Auto) 2.8 x10^3uL (1.8-7.7) 4.3 x10^3uL (1.8-7.7) Lymphocytes # (Auto) 2.8 x10^3/uL (1.0-4.8) 0.9 x10^3/uL (1.0-4.8) Monocytes # (Auto) 0.9 x10^3/uL (0.0-1.1) 0.1 x10^3/uL (0.0-1.1) Eosinophils # (Auto) 1.0 x10^3/uL (0.0-0.7) 0.0 x10^3/uL (0.0-0.7) Basophils # (Auto) 0.1 x10^3/uL (0.0-0.2) 0.0 x10^3/uL (0.0-0.2) Sodium Level 143 mmol/L (136-145) 140 mmol/L (136-145) Potassium Level 3.5 mmol/L (3.5-5.1) 4.6 mmol/L (3.5-5.1) Chloride Level 102 mmol/L (98-107) 103 mmol/L (98-107) Carbon Dioxide Level 37 mmol/L (21-32) 32 mmol/L (21-32) Anion Gap 4 (6-14) 5 (6-14) Blood Urea Nitrogen 11 mg/dL (7-20) 11 mg/dL (7-20) Creatinine 0.8 mg/dL (0.6-1.0) 0.8 mg/dL (0.6-1.0) Estimated GFR (Cockcroft-Gault) 89.1 89.1 Glucose Level 130 mg/dL (70-99) 182 mg/dL (70-99) Calcium Level 9.4 mg/dL (8.5-10.1) 8.6 mg/dL (8.5-10.1) Magnesium Level 2.0 mg/dL (1.8-2.4) Total Bilirubin 0.3 mg/dL (0.2-1.0) Direct Bilirubin 0.1 mg/dL (0.0-0.2) Aspartate Amino Transf (AST/SGOT) 36 U/L (15-37) Alanine Aminotransferase (ALT/SGPT) 36 U/L (14-59) Alkaline Phosphatase 66 U/L (46-116) Creatine Kinase 587 U/L (26-192) Creatine Kinase MB (Mass) 5.9 ng/mL (0.0-3.6) Creatine Kinase MB Relative Index 1.0 % (0-4) IU-Oyt-J-Type Natriuretic Peptide 191 pg/mL (0-124) Total Protein 7.5 g/dL (6.4-8.2) Albumin 3.9 g/dL (3.4-5.0) O2 Saturation 93 % (92-99) Arterial Blood pH 7.36 (7.35-7.45) Arterial Blood pCO2 at Patient Temp 59 mmHg (35-46) Arterial Blood pO2 at Patient Temp 69 mmHg (75-108) Arterial Blood HCO3 33 mmol/L (21-28) Arterial Blood Base Excess 6 mmol/L (-3-3) FiO2 36 Laboratory Tests Test 03/27/17 19:20 03/28/17 06:30 O2 Saturation 93 % (92-99) Arterial Blood pH 7.36 (7.35-7.45) Arterial Blood pCO2 at Patient Temp 59 mmHg (35-46) Arterial Blood pO2 at Patient Temp 69 mmHg (75-108) Arterial Blood HCO3 33 mmol/L (21-28) Arterial Blood Base Excess 6 mmol/L (-3-3) FiO2 36 White Blood Count 5.3 x10^3/uL (4.0-11.0) Red Blood Count 4.11 x10^6/uL (3.50-5.40) Hemoglobin 11.9 g/dL (12.0-15.5) Hematocrit 36.4 % (36.0-47.0) Mean Corpuscular Volume 89 fL (79-100) Mean Corpuscular Hemoglobin 29 pg (25-35) Mean Corpuscular Hemoglobin Concent 33 g/dL (31-37) Red Cell Distribution Width 14.5 % (11.5-14.5) Platelet Count 225 x10^3/uL (140-400) Neutrophils (%) (Auto) 81 % (31-73) Lymphocytes (%) (Auto) 17 % (24-48) Monocytes (%) (Auto) 2 % (0-9) Eosinophils (%) (Auto) 0 % (0-3) Basophils (%) (Auto) 1 % (0-3) Neutrophils # (Auto) 4.3 x10^3uL (1.8-7.7) Lymphocytes # (Auto) 0.9 x10^3/uL (1.0-4.8) Monocytes # (Auto) 0.1 x10^3/uL (0.0-1.1) Eosinophils # (Auto) 0.0 x10^3/uL (0.0-0.7) Basophils # (Auto) 0.0 x10^3/uL (0.0-0.2) Sodium Level 140 mmol/L (136-145) Potassium Level 4.6 mmol/L (3.5-5.1) Chloride Level 103 mmol/L (98-107) Carbon Dioxide Level 32 mmol/L (21-32) Anion Gap 5 (6-14) Blood Urea Nitrogen 11 mg/dL (7-20) Creatinine 0.8 mg/dL (0.6-1.0) Estimated GFR (Cockcroft-Gault) 89.1 Glucose Level 182 mg/dL (70-99) Calcium Level 8.6 mg/dL (8.5-10.1) Troponin I Quantitative 0.020 ng/mL (0.000-0.055) Medications Active Scripts Medications Dose Route/Sig Max Daily Dose Days Date Category Dose Instructions Prednisone 10 Mg Tablet 10 Mg PO DAILY 01/01/17 Rx 4 by mouth daily for 3 days then 3 by mouth daily for 3 days then 2 by mouth daily for 3 days then 1 by mouth daily for 3 days Potassium Chloride 10 Meq Capsule.er 1 Cap PO DAILY 04/26/15 Rx Fluticasone Propionate Nasal [place] (Fluticasone Propionate) 1 [place] 2 [place] NS DAILY 04/26/15 Rx Zoloft (Sertraline Hcl) 50 Mg Tablet 50 Mg PO DAILY 04/26/15 Rx Albuterol Sulfate Neb Soln (Albuterol Sulfate) 2.5 Mg/3 Ml Vial.neb 2.5 Mg NEB Q4HRS PRN 04/18/15 Reported Nexium Capsule (Esomeprazole Magnesium) 40 Mg Capsule. 40 Mg PO DAILYAC 04/18/15 Reported Singulair Tablet (Montelukast Sodium) 10 Mg Tablet 1 Tab PO DAILY 04/27/14 Reported Lasix (Furosemide) 20 Mg Tablet 1 Tab PO DAILY 04/27/14 Reported Symbicort 160-4.5 Mcg Inhaler (Budesonide/Formoterol Fumarate) 10.2 Gm Hfa.aer.ad 10.2 Gm IH BID 07/28/13 Reported Albuterol Sulfate Hfa Inhaler (Albuterol Sulfate) 8.5 Gm Hfa.aer.ad 8.5 Gm IH PRN 07/28/13 Reported Duoneb 0.5 Mg-3 Mg/3 Ml Soln (Ipratropium/Albuterol Sulfate) 3 Ml Ampul.neb 3 Ml IH QID 07/28/13 Reported Aspir 81 (Aspirin) 81 Mg Tablet. 81 Mg PO DAILY 07/28/13 Reported Impression . FULL CONSULT SEE ORDERS ACUTE RESP FAILURE GLENIS SCHWARTZ MD Mar 28, 2017 16:09
[2017-03-29] VITALS (8 sets, daily range): BP systolic 117–155; BP diastolic 73–87
[2017-03-29] MEDS: ALBUTEROL SULFATE 2.5 MG/3 ML NEBU. NEB PRN (00:17)
--- NOTE | 2017-03-29 01:01 | CONS ---
DATE OF CONSULTATION: 03/28/2017 ATTENDING PHYSICIAN: Jerry Rivera DO REASON FOR CONSULTATION: The patient seen in pulmonary consultation at the request of Dr. Rivera for increasing shortness of air and respiratory failure. HISTORY OF PRESENT ILLNESS: The patient is a 56-year-old well known to me from hospitalization and office visits. She has underlying chronic respiratory failure, COPD, quit smoking six years ago. She was recently treated in the outpatient department for acute exacerbation. She failed outpatient therapy. She was admitted. The patient presented because of increasing shortness of breath despite increasing the prednisone and Zithromax as an outpatient. She has some lower extremity edema. She denies fever or chills. The cough is mostly nonproductive. PAST MEDICAL HISTORY: Chronic respiratory failure, chronic cor pulmonale and tobacco dependence, in remission. PAST SURGICAL HISTORY: Status post hysterectomy, cardiac catheterization, exploratory laparotomy. ALLERGIES: PENICILLIN AND MORPHINE. FAMILY HISTORY: COPD. SOCIAL HISTORY: She quit tobacco 6 years ago. REVIEW OF SYSTEMS: As indicated above, otherwise, a 10-point system was reviewed and negative. CURRENT MEDICATIONS: List was reviewed. HOME MEDICATION: List was likewise reviewed. PHYSICAL EXAMINATION: GENERAL: The patient was in no respiratory distress. VITAL SIGNS: Stable. O2 saturation was greater than 92%. HEENT: Eyes: The sclerae were nonicteric. NECK: Jugular venous distention was slightly elevated. No lymphadenopathy. CHEST: Full expansion. LUNGS: Poor airway flow with prolonged expiratory phase. CARDIOVASCULAR: Regular rate and rhythm with S1, S2, no S3. ABDOMEN: Soft and nontender. EXTREMITIES: 1+ edema. NEUROLOGIC: The patient was awake, alert, following commands, sitting up in the chair. LABORATORY DATA: Reviewed. White count was noted to be normal. Chest x-ray revealed no acute infiltrates. IMPRESSION: 1. Acute on chronic respiratory failure, patient failed outpatient treatment for acute exacerbation of chronic obstructive pulmonary disease. 2. Acute exacerbation of chronic obstructive pulmonary disease. 3. Acute on chronic cor pulmonale. 4. Tobacco dependence in remission. 5. Acute nonspecific bronchitis. PLAN: 1. Recommend current medical management. 2. Diurese. 3. Discharge home with Lasix. 4. Continue oxygen supplementation. 5. Continue antibiotics. I do appreciate the privilege in sharing the patient's care. Total cumulative critical care time of 40 minutes. GLENIS SCHWARTZ MD DR: Miriam JOB#: [id number] / [id number]
[2017-03-29 04:59] LABS: CALCIUM 8.9 mg/dL (8.5-10.1); CREATININE 0.8 mg/dL (0.6-1.0); GFR 89.1; POTASSIUM 4.5 mmol/L (3.5-5.1)
[2017-03-29 05:00] LABS: BASO % 0 % (0-3); EOS % 0 % (0-3); HEMATOCRIT 36.2 % (36.0-47.0); LYMPH # 0.9 x10^3/uL (1.0-4.8); LYMPH % 8 % (24-48); MEAN CORPUSCULAR HEMOGLOBIN 30 pg (25-35); MEAN CORPUSCULAR HGB CONC 33 g/dL (31-37); MEAN CORPUSCULAR VOLUME 89 fL (79-100); MONO % 4 % (0-9); NEUT % 88 % (31-73); PLATELET COUNT 230 x10^3/uL (140-400); RED BLOOD COUNT 4.06 x10^6/uL (3.50-5.40); RED CELL DISTRIBUTION WIDTH 14.4 % (11.5-14.5)
[2017-03-29] MEDS: methylPREDNISolone SOD SUCC PF 40 MG/ML VIAL. IV SCH ×3 (05:38→21:59)
[2017-03-29] MEDS: IPRATRPIUM/ALBUTEROL 0.5/2.5MG 3 ML NEBU. IH SCH ×4 (07:40→20:15)
[2017-03-29] MEDS: BUDESONIDE 0.5 MG/2 ML NEBU. NEB SCH ×2 (07:40→20:15)
[2017-03-29] MEDS: MONTELUKAST SODIUM 10 MG TABLET. PO SCH (08:39)
[2017-03-29] MEDS: POTASSIUM CHLORIDE 10 MEQ TABLET.ER. PO SCH (08:40)
[2017-03-29] MEDS: SERTRALINE 50 MG TABLET. PO SCH (08:41)
[2017-03-29] MEDS: PANTOPRAZOLE 40 MG TABLET.DR. PO SCH (08:41)
[2017-03-29] MEDS: FUROSEMIDE 20 MG TABLET PO SCH (08:43)
[2017-03-29] MEDS: ASPIRIN ENTERIC COATED 81 MG TABLET.DR. PO SCH (08:43)
[2017-03-29] MEDS: FLUTICASONE 50MCG/NASAL SPRAY 16GM BOTTLE. NS SCH (08:59)
--- NOTE | 2017-03-29 12:04 | PDOC ---
PROGRESS NOTES Chief Complaint Chief Complaint SOB cough COPD exacerbation Hemoptysis PMHx: COPD, previous tobacco abuse, hysterectomy, tonsillectomy, cardiac catheterization, exploratory surgery. History of Present Illness History of Present Illness Pt seen at bedside in the cardiovascular care unit. Pt continues to wheeze and air movement has diminished from bedside check in ICU yesterday. Pulm is following-breathing txs, steroids, pulmicort, and BiPAP if needed. Cardio is following. C/o SOB but denies any fevers or chills. No CP. Continue to monitor on medical floor. Vitals Vitals Vital Signs Date Time Temp Pulse Resp B/P (MAP) Pulse Ox O2 Delivery O2 Flow Rate FiO2 03/29/17 11:46 93 Nasal Cannula 3.0 03/29/17 11:16 98.5 86 20 120/74 (89) 98.5 Physical Exam General: Alert, Oriented X3, Cooperative Heart: Regular rate, Normal S1, Normal S2 Lungs: Wheezing Abdomen: Normal bowel sounds, Soft Extremities: Other (1+ edema) Skin: No rashes, No significant lesion Labs LABS Laboratory Tests Test 03/29/17 03:17 White Blood Count 11.0 x10^3/uL (4.0-11.0) Red Blood Count 4.06 x10^6/uL (3.50-5.40) Hemoglobin 12.0 g/dL (12.0-15.5) Hematocrit 36.2 % (36.0-47.0) Mean Corpuscular Volume 89 fL (79-100) Mean Corpuscular Hemoglobin 30 pg (25-35) Mean Corpuscular Hemoglobin Concent 33 g/dL (31-37) Red Cell Distribution Width 14.4 % (11.5-14.5) Platelet Count 230 x10^3/uL (140-400) Neutrophils (%) (Auto) 88 % (31-73) Lymphocytes (%) (Auto) 8 % (24-48) Monocytes (%) (Auto) 4 % (0-9) Eosinophils (%) (Auto) 0 % (0-3) Basophils (%) (Auto) 0 % (0-3) Neutrophils # (Auto) 9.7 x10^3uL (1.8-7.7) Lymphocytes # (Auto) 0.9 x10^3/uL (1.0-4.8) Monocytes # (Auto) 0.4 x10^3/uL (0.0-1.1) Eosinophils # (Auto) 0.0 x10^3/uL (0.0-0.7) Basophils # (Auto) 0.0 x10^3/uL (0.0-0.2) Sodium Level 144 mmol/L (136-145) Potassium Level 4.5 mmol/L (3.5-5.1) Chloride Level 105 mmol/L (98-107) Carbon Dioxide Level 36 mmol/L (21-32) Anion Gap 3 (6-14) Blood Urea Nitrogen 18 mg/dL (7-20) Creatinine 0.8 mg/dL (0.6-1.0) Estimated GFR (Cockcroft-Gault) 89.1 Glucose Level 143 mg/dL (70-99) Calcium Level 8.9 mg/dL (8.5-10.1) Review of Systems Review of Systems Pt continues to wheeze with diminished air movement and SOB. C/o productive cough with yellowish sputum and hemoptysis. Denies CP. Denies abdominal pain. Assessment and Plan Assessmemt and Plan SOB cough COPD exacerbation Hemoptysis Plan: Start Levoquin 500mg IV q.d. Start Guaifenesin 600mg PO b.i.d. Continue nebs Continue O2 Continue home meds Cardiac monitoring PT/OT Recheck labs Subspecialty input appreciated: cardiology and pulmonology Problems: Comment Review of Relevant I have reviewed the following items paulette (where applicable) has been applied. Labs Laboratory Tests Test 03/27/17 16:07 03/27/17 19:20 03/28/17 03:00 03/28/17 06:30 White Blood Count 7.6 x10^3/uL (4.0-11.0) 5.3 x10^3/uL (4.0-11.0) Red Blood Count 4.51 x10^6/uL (3.50-5.40) 4.11 x10^6/uL (3.50-5.40) Hemoglobin 13.2 g/dL (12.0-15.5) 11.9 g/dL (12.0-15.5) Hematocrit 40.2 % (36.0-47.0) 36.4 % (36.0-47.0) Mean Corpuscular Volume 89 fL (79-100) 89 fL (79-100) Mean Corpuscular Hemoglobin 29 pg (25-35) 29 pg (25-35) Mean Corpuscular Hemoglobin Concent 33 g/dL (31-37) 33 g/dL (31-37) Red Cell Distribution Width 14.6 % (11.5-14.5) 14.5 % (11.5-14.5) Platelet Count 248 x10^3/uL (140-400) 225 x10^3/uL (140-400) Neutrophils (%) (Auto) 37 % (31-73) 81 % (31-73) Lymphocytes (%) (Auto) 37 % (24-48) 17 % (24-48) Monocytes (%) (Auto) 12 % (0-9) 2 % (0-9) Eosinophils (%) (Auto) 13 % (0-3) 0 % (0-3) Basophils (%) (Auto) 1 % (0-3) 1 % (0-3) Neutrophils # (Auto) 2.8 x10^3uL (1.8-7.7) 4.3 x10^3uL (1.8-7.7) Lymphocytes # (Auto) 2.8 x10^3/uL (1.0-4.8) 0.9 x10^3/uL (1.0-4.8) Monocytes # (Auto) 0.9 x10^3/uL (0.0-1.1) 0.1 x10^3/uL (0.0-1.1) Eosinophils # (Auto) 1.0 x10^3/uL (0.0-0.7) 0.0 x10^3/uL (0.0-0.7) Basophils # (Auto) 0.1 x10^3/uL (0.0-0.2) 0.0 x10^3/uL (0.0-0.2) Sodium Level 143 mmol/L (136-145) 140 mmol/L (136-145) Potassium Level 3.5 mmol/L (3.5-5.1) 4.6 mmol/L (3.5-5.1) Chloride Level 102 mmol/L (98-107) 103 mmol/L (98-107) Carbon Dioxide Level 37 mmol/L (21-32) 32 mmol/L (21-32) Anion Gap 4 (6-14) 5 (6-14) Blood Urea Nitrogen 11 mg/dL (7-20) 11 mg/dL (7-20) Creatinine 0.8 mg/dL (0.6-1.0) 0.8 mg/dL (0.6-1.0) Estimated GFR (Cockcroft-Gault) 89.1 89.1 Glucose Level 130 mg/dL (70-99) 182 mg/dL (70-99) Calcium Level 9.4 mg/dL (8.5-10.1) 8.6 mg/dL (8.5-10.1) Magnesium Level 2.0 mg/dL (1.8-2.4) Total Bilirubin 0.3 mg/dL (0.2-1.0) Direct Bilirubin 0.1 mg/dL (0.0-0.2) Aspartate Amino Transf (AST/SGOT) 36 U/L (15-37) Alanine Aminotransferase (ALT/SGPT) 36 U/L (14-59) Alkaline Phosphatase 66 U/L (46-116) Creatine Kinase 587 U/L (26-192) Creatine Kinase MB (Mass) 5.9 ng/mL (0.0-3.6) Creatine Kinase MB Relative Index 1.0 % (0-4) Troponin I Quantitative < 0.017 ng/mL (0.000-0.055) 0.020 ng/mL (0.000-0.055) CP-Mcs-N-Type Natriuretic Peptide 191 pg/mL (0-124) Total Protein 7.5 g/dL (6.4-8.2) Albumin 3.9 g/dL (3.4-5.0) O2 Saturation 93 % (92-99) Arterial Blood pH 7.36 (7.35-7.45) Arterial Blood pCO2 at Patient Temp 59 mmHg (35-46) Arterial Blood pO2 at Patient Temp 69 mmHg (75-108) Arterial Blood HCO3 33 mmol/L (21-28) Arterial Blood Base Excess 6 mmol/L (-3-3) FiO2 36 Nasal Screen MRSA (PCR) Negative (Negative) Test 03/29/17 03:17 White Blood Count 11.0 x10^3/uL (4.0-11.0) Red Blood Count 4.06 x10^6/uL (3.50-5.40) Hemoglobin 12.0 g/dL (12.0-15.5) Hematocrit 36.2 % (36.0-47.0) Mean Corpuscular Volume 89 fL (79-100) Mean Corpuscular Hemoglobin 30 pg (25-35) Mean Corpuscular Hemoglobin Concent 33 g/dL (31-37) Red Cell Distribution Width 14.4 % (11.5-14.5) Platelet Count 230 x10^3/uL (140-400) Neutrophils (%) (Auto) 88 % (31-73) Lymphocytes (%) (Auto) 8 % (24-48) Monocytes (%) (Auto) 4 % (0-9) Eosinophils (%) (Auto) 0 % (0-3) Basophils (%) (Auto) 0 % (0-3) Neutrophils # (Auto) 9.7 x10^3uL (1.8-7.7) Lymphocytes # (Auto) 0.9 x10^3/uL (1.0-4.8) Monocytes # (Auto) 0.4 x10^3/uL (0.0-1.1) Eosinophils # (Auto) 0.0 x10^3/uL (0.0-0.7) Basophils # (Auto) 0.0 x10^3/uL (0.0-0.2) Sodium Level 144 mmol/L (136-145) Potassium Level 4.5 mmol/L (3.5-5.1) Chloride Level 105 mmol/L (98-107) Carbon Dioxide Level 36 mmol/L (21-32) Anion Gap 3 (6-14) Blood Urea Nitrogen 18 mg/dL (7-20) Creatinine 0.8 mg/dL (0.6-1.0) Estimated GFR (Cockcroft-Gault) 89.1 Glucose Level 143 mg/dL (70-99) Calcium Level 8.9 mg/dL (8.5-10.1) Laboratory Tests Test 03/29/17 03:17 White Blood Count 11.0 x10^3/uL (4.0-11.0) Red Blood Count 4.06 x10^6/uL (3.50-5.40) Hemoglobin 12.0 g/dL (12.0-15.5) Hematocrit 36.2 % (36.0-47.0) Mean Corpuscular Volume 89 fL (79-100) Mean Corpuscular Hemoglobin 30 pg (25-35) Mean Corpuscular Hemoglobin Concent 33 g/dL (31-37) Red Cell Distribution Width 14.4 % (11.5-14.5) Platelet Count 230 x10^3/uL (140-400) Neutrophils (%) (Auto) 88 % (31-73) Lymphocytes (%) (Auto) 8 % (24-48) Monocytes (%) (Auto) 4 % (0-9) Eosinophils (%) (Auto) 0 % (0-3) Basophils (%) (Auto) 0 % (0-3) Neutrophils # (Auto) 9.7 x10^3uL (1.8-7.7) Lymphocytes # (Auto) 0.9 x10^3/uL (1.0-4.8) Monocytes # (Auto) 0.4 x10^3/uL (0.0-1.1) Eosinophils # (Auto) 0.0 x10^3/uL (0.0-0.7) Basophils # (Auto) 0.0 x10^3/uL (0.0-0.2) Sodium Level 144 mmol/L (136-145) Potassium Level 4.5 mmol/L (3.5-5.1) Chloride Level 105 mmol/L (98-107) Carbon Dioxide Level 36 mmol/L (21-32) Anion Gap 3 (6-14) Blood Urea Nitrogen 18 mg/dL (7-20) Creatinine 0.8 mg/dL (0.6-1.0) Estimated GFR (Cockcroft-Gault) 89.1 Glucose Level 143 mg/dL (70-99) Calcium Level 8.9 mg/dL (8.5-10.1) Medications Current Medications Albuterol/ Ipratropium (Duoneb) 3 ml 1X ONCE NEB Last administered on 16:16; Start 03/27/17 at 16:15; Stop 03/27/17 at 16:16; Status DC Methylprednisolone Sodium Succinate (SOLU-Medrol 125MG VIAL) 125 mg 1X ONCE IV Last administered on 03/27/17 16:25; Start 03/27/17 at 16:15; Stop at 16:16; Status DC Azithromycin 250 ml @ 250 mls/hr 1X ONCE IV Last administered on 03/27/17 16:32; Start 03/27/17 at 16:15; Stop 03/27/17 at 17:14; Status DC Ceftriaxone Sodium 50 ml @ 100 mls/hr 1X ONCE IV Last administered on 20:34; Start 03/27/17 at 17:45; Stop 03/27/17 at 18:14; Status DC Magnesium Sulfate/ Dextrose 50 ml @ 25 mls/hr 1X ONCE IV Last administered on 03/27/17 17:31; Start 03/27/17 at 18:00; Stop 03/27/17 at 19:59; Status DC Albuterol/ Ipratropium (Duoneb) 3 ml 1X ONCE NEB ; Start 03/27/17 at 18:00; Stop 03/27/17 at 18:01; Status DC Ondansetron HCl (Zofran) 4 mg PRN Q8HRS PRN IV NAUSEA/VOMITING; Start at 17:30; Stop 03/28/17 at 17:29; Status DC Albuterol/ Ipratropium (Duoneb) 3 ml RTQID NEB ; Start 03/27/17 at 20:00; Stop 03/27/17 at 20:00; Status DC Methylprednisolone Sodium Succinate (SOLU-Medrol 40MG VIAL) 40 mg Q8HRS IV ; Start 03/27/17 at 22:00; Stop 03/27/17 at 22:00; Status DC Albuterol/ Ipratropium (Duoneb) 3 ml Q4HRS NEB ; Start 03/27/17 at 20:00; Stop 03/27/17 at 20:06; Status DC Methylprednisolone Sodium Succinate (SOLU-Medrol 40MG VIAL) 40 mg Q8HRS IV Last administered on 03/29/17 05:38; Start 03/27/17 at 22:00 Budesonide (Pulmicort) 0.5 mg RTBID NEB ; Start 03/27/17 at 20:00; Stop at 20:06; Status DC Oxymetazoline HCl (Afrin) 2 spray PRN BID PRN NS NASAL STUFFINESS; Start 03/27 at 19:15 Oxymetazoline HCl (Afrin) 2 spray 1X ONCE NS Last administered on 03/27/17 20:33; Start 03/27/17 at 19:30; Stop 03/27/17 at 19:31; Status DC Albuterol Sulfate (Ventolin Hfa) 1 puff QID IH ; Start 03/27/17 at 21:00; Stop 03/27/17 at 21:00; Status DC Albuterol Sulfate (Ventolin Neb Soln) 2.5 mg PRN Q4HRS PRN NEB SHORTNESS OF BREATH Last administered on 03/29/17 00:17; Start 03/27/17 at 19:45 Aspirin (Ecotrin) 81 mg DAILY PO Last administered on 03/29/17 08:43; Start 03/28/17 at 09:00 Fluticasone Propionate (Flonase) 2 spray DAILY NS Last administered on 08:59; Start 03/28/17 at 09:00 Furosemide (Lasix) 20 mg DAILY PO Last administered on 03/29/17 08:43; Start 03/28/17 at 09:00 Albuterol/ Ipratropium (Duoneb) 3 ml RTQID IH Last administered on 03/29/17 11:46; Start 03/27/17 at 21:00 Montelukast Sodium (Singulair) 10 mg DAILY PO Last administered on 03/29/17 08:39; Start 03/28/17 at 09:00 Prednisone (Prednisone) 10 mg DAILY PO Last administered on 03/28/17 09:23; Start 03/28/17 at 09:00; Stop 03/28/17 at 10:43; Status DC Sertraline HCl (Zoloft) 50 mg DAILY PO Last administered on 03/29/17 08:41; Start 03/28/17 at 09:00 Non-Formulary Medication 10.2 gm BID IH ; Start 03/27/17 at 21:00; Stop at 21:00; Status DC Pantoprazole Sodium (Protonix) 40 mg DAILYAC PO Last administered on 08:41; Start 03/28/17 at 07:30 Potassium Chloride (Klor-Con) 10 meq DAILYWBKFT PO Last administered on 08:40; Start 03/28/17 at 08:00 Budesonide (Pulmicort) 0.5 mg RTBID NEB Last administered on 03/29/17 07:40; Start 03/27/17 at 21:00 Promethazine HCl/ Codeine (Phenergan With Codeine) 5 ml PRN Q4HRS PRN PO COUGH Last administered on 03/28/17 19:51; Start 03/27/17 at 22:30 Acetaminophen/ Hydrocodone Bitart (Lortab 5/325) 1 tab PRN Q4HRS PRN PO MODERATE PAIN; Start 03/28/17 at 03:30; Stop 03/28/17 at 03:50; Status DC Ibuprofen (Motrin) 600 mg PRN Q6HRS PRN PO INFLAMMATION Last administered on 05:17; Start 03/28/17 at 04:45 Furosemide (Lasix) 40 mg 1X ONCE IVP Last administered on 03/28/17 16:38; Start 03/28/17 at 14:30; Stop 03/28/17 at 14:31; Status DC Active Scripts Active Prednisone 10 Mg Tablet 10 Mg PO DAILY 4 by mouth daily for 3 days then 3 by mouth daily for 3 days then 2 by mouth daily for 3 days then 1 by mouth daily for 3 days Potassium Chloride 10 Meq Capsule.er 1 Cap PO DAILY Fluticasone Propionate Nasal [place] (Fluticasone Propionate) 1 [place] 2 [place] NS DAILY Zoloft (Sertraline Hcl) 50 Mg Tablet 50 Mg PO DAILY Reported Albuterol Sulfate Neb Soln (Albuterol Sulfate) 2.5 Mg/3 Ml Vial.neb 2.5 Mg NEB Q4HRS PRN Nexium Capsule (Esomeprazole Magnesium) 40 Mg Capsule.dr 40 Mg PO DAILYAC Singulair Tablet (Montelukast Sodium) 10 Mg Tablet 1 Tab PO DAILY Lasix (Furosemide) 20 Mg Tablet 1 Tab PO DAILY Symbicort 160-4.5 Mcg Inhaler (Budesonide/Formoterol Fumarate) 10.2 Gm Hfa.aer.ad 10.2 Gm IH BID Albuterol Sulfate Hfa Inhaler (Albuterol Sulfate) 8.5 Gm Hfa.aer.ad 8.5 Gm IH PRN Duoneb 0.5 Mg-3 Mg/3 Ml Soln (Ipratropium/Albuterol Sulfate) 3 Ml Ampul.neb 3 Ml IH QID Aspir 81 (Aspirin) 81 Mg Tablet.dr 81 Mg PO DAILY Vitals/I & O Vital Sign - Last 24 Hours 03/28/17 03/28/17 03/28/17 03/28/17 12:17 15:00 15:55 19:00 Temp 98.1 98.1 Pulse 90 96 Resp 20 B/P (MAP) 132/85 (101) 104/73 (83) Pulse Ox 95 92 96 96 O2 Delivery Nasal Cannula Nasal Cannula Nasal Cannula Nasal Cannula O2 Flow Rate 4.0 3.0 4.0 4.0 03/28/17 03/28/17 03/28/17 03/28/17 20:00 20:00 20:15 23:00 Temp 98.9 98.9 Pulse 119 88 Resp 20 18 B/P (MAP) 119/68 (85) 139/70 (93) Pulse Ox 96 97 96 O2 Delivery Nasal Cannula Nasal Cannula Nasal Cannula Nasal Cannula O2 Flow Rate 4.0 4.0 4.0 4.0 03/29/17 03/29/17 03/29/17 03/29/17 00:19 03:11 07:00 07:41 Temp 98.6 98.6 98.6 98.6 Pulse 90 102 Resp 16 24 B/P (MAP) 136/73 (94) 155/82 (106) Pulse Ox 97 97 97 97 O2 Delivery Nasal Cannula Nasal Cannula Nasal Cannula Nasal Cannula O2 Flow Rate 4.0 3.0 4.0 4.0 03/29/17 03/29/17 03/29/17 03/29/17 07:42 08:15 08:15 09:17 Temp 98.6 98.6 98.6 98.6 Pulse 102 90 Resp 24 24 B/P (MAP) 155/82 (106) 155/73 (100) Pulse Ox 97 97 97 O2 Delivery Nasal Cannula Nasal Cannula Nasal Cannula Nasal Cannula O2 Flow Rate 4.0 4.0 4.0 5.0 03/29/17 03/29/17 03/29/17 03/29/17 09:18 09:28 11:16 11:46 Temp 98.5 98.5 Pulse 86 Resp 20 B/P (MAP) 120/74 (89) Pulse Ox 93 O2 Delivery Nasal Cannula Nasal Cannula Nasal Cannula Nasal Cannula O2 Flow Rate 4.0 4.0 3.0 3.0 LAVELLE AMBROSIO III DO Mar 29, 2017 12:04
--- NOTE | 2017-03-29 12:06 | PDOC ---
PULMONARY PROGRESS NOTES Subjective PT STILL SOA Vitals Vital Signs Date Time Temp Pulse Resp B/P (MAP) Pulse Ox O2 Delivery O2 Flow Rate FiO2 03/29/17 11:46 93 Nasal Cannula 3.0 03/29/17 11:16 98.5 86 20 120/74 (89) 98.5 ROS: No Nausea, No Chest Pain, No Abdominal Pain HEENT: Other Lungs: Wheezing, Crackles Cardiovascular: S1, S2 Abdomen: Soft, Non-tender, Other Neuro Exam: Alert Extremities: Other (edema) Skin: Warm Labs Laboratory Tests Test 03/27/17 16:07 03/27/17 19:20 03/28/17 03:00 03/28/17 06:30 White Blood Count 7.6 x10^3/uL (4.0-11.0) 5.3 x10^3/uL (4.0-11.0) Red Blood Count 4.51 x10^6/uL (3.50-5.40) 4.11 x10^6/uL (3.50-5.40) Hemoglobin 13.2 g/dL (12.0-15.5) 11.9 g/dL (12.0-15.5) Hematocrit 40.2 % (36.0-47.0) 36.4 % (36.0-47.0) Mean Corpuscular Volume 89 fL (79-100) 89 fL (79-100) Mean Corpuscular Hemoglobin 29 pg (25-35) 29 pg (25-35) Mean Corpuscular Hemoglobin Concent 33 g/dL (31-37) 33 g/dL (31-37) Red Cell Distribution Width 14.6 % (11.5-14.5) 14.5 % (11.5-14.5) Platelet Count 248 x10^3/uL (140-400) 225 x10^3/uL (140-400) Neutrophils (%) (Auto) 37 % (31-73) 81 % (31-73) Lymphocytes (%) (Auto) 37 % (24-48) 17 % (24-48) Monocytes (%) (Auto) 12 % (0-9) 2 % (0-9) Eosinophils (%) (Auto) 13 % (0-3) 0 % (0-3) Basophils (%) (Auto) 1 % (0-3) 1 % (0-3) Neutrophils # (Auto) 2.8 x10^3uL (1.8-7.7) 4.3 x10^3uL (1.8-7.7) Lymphocytes # (Auto) 2.8 x10^3/uL (1.0-4.8) 0.9 x10^3/uL (1.0-4.8) Monocytes # (Auto) 0.9 x10^3/uL (0.0-1.1) 0.1 x10^3/uL (0.0-1.1) Eosinophils # (Auto) 1.0 x10^3/uL (0.0-0.7) 0.0 x10^3/uL (0.0-0.7) Basophils # (Auto) 0.1 x10^3/uL (0.0-0.2) 0.0 x10^3/uL (0.0-0.2) Sodium Level 143 mmol/L (136-145) 140 mmol/L (136-145) Potassium Level 3.5 mmol/L (3.5-5.1) 4.6 mmol/L (3.5-5.1) Chloride Level 102 mmol/L (98-107) 103 mmol/L (98-107) Carbon Dioxide Level 37 mmol/L (21-32) 32 mmol/L (21-32) Anion Gap 4 (6-14) 5 (6-14) Blood Urea Nitrogen 11 mg/dL (7-20) 11 mg/dL (7-20) Creatinine 0.8 mg/dL (0.6-1.0) 0.8 mg/dL (0.6-1.0) Estimated GFR (Cockcroft-Gault) 89.1 89.1 Glucose Level 130 mg/dL (70-99) 182 mg/dL (70-99) Calcium Level 9.4 mg/dL (8.5-10.1) 8.6 mg/dL (8.5-10.1) Magnesium Level 2.0 mg/dL (1.8-2.4) Total Bilirubin 0.3 mg/dL (0.2-1.0) Direct Bilirubin 0.1 mg/dL (0.0-0.2) Aspartate Amino Transf (AST/SGOT) 36 U/L (15-37) Alanine Aminotransferase (ALT/SGPT) 36 U/L (14-59) Alkaline Phosphatase 66 U/L (46-116) Creatine Kinase 587 U/L (26-192) Creatine Kinase MB (Mass) 5.9 ng/mL (0.0-3.6) Creatine Kinase MB Relative Index 1.0 % (0-4) Troponin I Quantitative < 0.017 ng/mL (0.000-0.055) 0.020 ng/mL (0.000-0.055) BK-Yug-V-Type Natriuretic Peptide 191 pg/mL (0-124) Total Protein 7.5 g/dL (6.4-8.2) Albumin 3.9 g/dL (3.4-5.0) O2 Saturation 93 % (92-99) Arterial Blood pH 7.36 (7.35-7.45) Arterial Blood pCO2 at Patient Temp 59 mmHg (35-46) Arterial Blood pO2 at Patient Temp 69 mmHg (75-108) Arterial Blood HCO3 33 mmol/L (21-28) Arterial Blood Base Excess 6 mmol/L (-3-3) FiO2 36 Nasal Screen MRSA (PCR) Negative (Negative) Test 03/29/17 03:17 White Blood Count 11.0 x10^3/uL (4.0-11.0) Red Blood Count 4.06 x10^6/uL (3.50-5.40) Hemoglobin 12.0 g/dL (12.0-15.5) Hematocrit 36.2 % (36.0-47.0) Mean Corpuscular Volume 89 fL (79-100) Mean Corpuscular Hemoglobin 30 pg (25-35) Mean Corpuscular Hemoglobin Concent 33 g/dL (31-37) Red Cell Distribution Width 14.4 % (11.5-14.5) Platelet Count 230 x10^3/uL (140-400) Neutrophils (%) (Auto) 88 % (31-73) Lymphocytes (%) (Auto) 8 % (24-48) Monocytes (%) (Auto) 4 % (0-9) Eosinophils (%) (Auto) 0 % (0-3) Basophils (%) (Auto) 0 % (0-3) Neutrophils # (Auto) 9.7 x10^3uL (1.8-7.7) Lymphocytes # (Auto) 0.9 x10^3/uL (1.0-4.8) Monocytes # (Auto) 0.4 x10^3/uL (0.0-1.1) Eosinophils # (Auto) 0.0 x10^3/uL (0.0-0.7) Basophils # (Auto) 0.0 x10^3/uL (0.0-0.2) Sodium Level 144 mmol/L (136-145) Potassium Level 4.5 mmol/L (3.5-5.1) Chloride Level 105 mmol/L (98-107) Carbon Dioxide Level 36 mmol/L (21-32) Anion Gap 3 (6-14) Blood Urea Nitrogen 18 mg/dL (7-20) Creatinine 0.8 mg/dL (0.6-1.0) Estimated GFR (Cockcroft-Gault) 89.1 Glucose Level 143 mg/dL (70-99) Calcium Level 8.9 mg/dL (8.5-10.1) Laboratory Tests Test 03/29/17 03:17 White Blood Count 11.0 x10^3/uL (4.0-11.0) Red Blood Count 4.06 x10^6/uL (3.50-5.40) Hemoglobin 12.0 g/dL (12.0-15.5) Hematocrit 36.2 % (36.0-47.0) Mean Corpuscular Volume 89 fL (79-100) Mean Corpuscular Hemoglobin 30 pg (25-35) Mean Corpuscular Hemoglobin Concent 33 g/dL (31-37) Red Cell Distribution Width 14.4 % (11.5-14.5) Platelet Count 230 x10^3/uL (140-400) Neutrophils (%) (Auto) 88 % (31-73) Lymphocytes (%) (Auto) 8 % (24-48) Monocytes (%) (Auto) 4 % (0-9) Eosinophils (%) (Auto) 0 % (0-3) Basophils (%) (Auto) 0 % (0-3) Neutrophils # (Auto) 9.7 x10^3uL (1.8-7.7) Lymphocytes # (Auto) 0.9 x10^3/uL (1.0-4.8) Monocytes # (Auto) 0.4 x10^3/uL (0.0-1.1) Eosinophils # (Auto) 0.0 x10^3/uL (0.0-0.7) Basophils # (Auto) 0.0 x10^3/uL (0.0-0.2) Sodium Level 144 mmol/L (136-145) Potassium Level 4.5 mmol/L (3.5-5.1) Chloride Level 105 mmol/L (98-107) Carbon Dioxide Level 36 mmol/L (21-32) Anion Gap 3 (6-14) Blood Urea Nitrogen 18 mg/dL (7-20) Creatinine 0.8 mg/dL (0.6-1.0) Estimated GFR (Cockcroft-Gault) 89.1 Glucose Level 143 mg/dL (70-99) Calcium Level 8.9 mg/dL (8.5-10.1) Medications Active Scripts Medications Dose Route/Sig Max Daily Dose Days Date Category Dose Instructions Prednisone 10 Mg Tablet 10 Mg PO DAILY 01/01/17 Rx 4 by mouth daily for 3 days then 3 by mouth daily for 3 days then 2 by mouth daily for 3 days then 1 by mouth daily for 3 days Potassium Chloride 10 Meq Capsule.er 1 Cap PO DAILY 04/26/15 Rx Fluticasone Propionate Nasal [place] (Fluticasone Propionate) 1 [place] 2 [place] NS DAILY 04/26/15 Rx Zoloft (Sertraline Hcl) 50 Mg Tablet 50 Mg PO DAILY 04/26/15 Rx Albuterol Sulfate Neb Soln (Albuterol Sulfate) 2.5 Mg/3 Ml Vial.neb 2.5 Mg NEB Q4HRS PRN 04/18/15 Reported Nexium Capsule (Esomeprazole Magnesium) 40 Mg Capsule.dr 40 Mg PO DAILYAC 04/18/15 Reported Singulair Tablet (Montelukast Sodium) 10 Mg Tablet 1 Tab PO DAILY 04/27/14 Reported Lasix (Furosemide) 20 Mg Tablet 1 Tab PO DAILY 04/27/14 Reported Symbicort 160-4.5 Mcg Inhaler (Budesonide/Formoterol Fumarate) 10.2 Gm Hfa.aer.ad 10.2 Gm IH BID 07/28/13 Reported Albuterol Sulfate Hfa Inhaler (Albuterol Sulfate) 8.5 Gm Hfa.aer.ad 8.5 Gm IH PRN 07/28/13 Reported Duoneb 0.5 Mg-3 Mg/3 Ml Soln (Ipratropium/Albuterol Sulfate) 3 Ml Ampul.neb 3 Ml IH QID 07/28/13 Reported Aspir 81 (Aspirin) 81 Mg Tablet.dr 81 Mg PO DAILY 07/28/13 Reported Impression . 1. Acute on chronic respiratory failure, patient failed outpatient treatment for acute exacerbation of chronic obstructive pulmonary disease. 2. Acute exacerbation of chronic obstructive pulmonary disease. 3. Acute on chronic cor pulmonale. 4. Tobacco dependence in remission. 5. Acute nonspecific bronchitis. Plan . CONTINUE THE SAME HOME IN 48 HOURS 1. Recommend current medical management. 2. Diurese. 3. Discharge home with Lasix. 4. Continue oxygen supplementation. 5. Continue antibiotics. GLENIS SCHWARTZ MD Mar 29, 2017 12:06
[2017-03-29 12:11] LABS: PLT ESTIMATE ADEQUATE (ADEQUATE)
[2017-03-29] MEDS: guaiFENesin DM 600/30MG 1 TAB TAB.ER.12H PO SCH ×2 (13:58→21:23)
--- NOTE | 2017-03-29 14:12 | PDOC ---
PROGRESS NOTES Subjective Subjective This lady is a pleasant 56-year-old that I have known for over 20 years. She has severe COPD and is O2 dependent. She is not having any chest pains, no palpitations, no loss of consciousness. Objective Objective Vital Signs Date Time Temp Pulse Resp B/P (MAP) Pulse Ox O2 Delivery O2 Flow Rate FiO2 03/29/17 11:46 93 Nasal Cannula 3.0 03/29/17 11:16 98.5 86 20 120/74 (89) 98.5 Diagnosis Problems: (1) Acute on chronic respiratory failure with hypoxia and hypercapnia (2) Acute respiratory failure (3) Diverticulitis Assessment Assessment This patient comes in in acute respiratory distress secondary to a COPD exacerbation. She has cor pulmonale and right heart failure due to that. EKG showed sinus tachycardia, atrial premature complexes, and an abnormal left axis deviation. There was also a QRS contour abnormality. The Echocardiogram shows an LV EF of 65%, diastolic dysfunction and unable to estimate the PA pressure. Would continue with IV Lasix. Thank you very much for asking me to participate in the care of this patient. Comment Review of Relevant I have reviewed the following items paulette (where applicable) has been applied. Labs Laboratory Tests Test 03/27/17 16:07 03/27/17 19:20 03/28/17 03:00 03/28/17 06:30 White Blood Count 7.6 x10^3/uL (4.0-11.0) 5.3 x10^3/uL (4.0-11.0) Red Blood Count 4.51 x10^6/uL (3.50-5.40) 4.11 x10^6/uL (3.50-5.40) Hemoglobin 13.2 g/dL (12.0-15.5) 11.9 g/dL (12.0-15.5) Hematocrit 40.2 % (36.0-47.0) 36.4 % (36.0-47.0) Mean Corpuscular Volume 89 fL (79-100) 89 fL (79-100) Mean Corpuscular Hemoglobin 29 pg (25-35) 29 pg (25-35) Mean Corpuscular Hemoglobin Concent 33 g/dL (31-37) 33 g/dL (31-37) Red Cell Distribution Width 14.6 % (11.5-14.5) 14.5 % (11.5-14.5) Platelet Count 248 x10^3/uL (140-400) 225 x10^3/uL (140-400) Neutrophils (%) (Auto) 37 % (31-73) 81 % (31-73) Lymphocytes (%) (Auto) 37 % (24-48) 17 % (24-48) Monocytes (%) (Auto) 12 % (0-9) 2 % (0-9) Eosinophils (%) (Auto) 13 % (0-3) 0 % (0-3) Basophils (%) (Auto) 1 % (0-3) 1 % (0-3) Neutrophils # (Auto) 2.8 x10^3uL (1.8-7.7) 4.3 x10^3uL (1.8-7.7) Lymphocytes # (Auto) 2.8 x10^3/uL (1.0-4.8) 0.9 x10^3/uL (1.0-4.8) Monocytes # (Auto) 0.9 x10^3/uL (0.0-1.1) 0.1 x10^3/uL (0.0-1.1) Eosinophils # (Auto) 1.0 x10^3/uL (0.0-0.7) 0.0 x10^3/uL (0.0-0.7) Basophils # (Auto) 0.1 x10^3/uL (0.0-0.2) 0.0 x10^3/uL (0.0-0.2) Sodium Level 143 mmol/L (136-145) 140 mmol/L (136-145) Potassium Level 3.5 mmol/L (3.5-5.1) 4.6 mmol/L (3.5-5.1) Chloride Level 102 mmol/L (98-107) 103 mmol/L (98-107) Carbon Dioxide Level 37 mmol/L (21-32) 32 mmol/L (21-32) Anion Gap 4 (6-14) 5 (6-14) Blood Urea Nitrogen 11 mg/dL (7-20) 11 mg/dL (7-20) Creatinine 0.8 mg/dL (0.6-1.0) 0.8 mg/dL (0.6-1.0) Estimated GFR (Cockcroft-Gault) 89.1 89.1 Glucose Level 130 mg/dL (70-99) 182 mg/dL (70-99) Calcium Level 9.4 mg/dL (8.5-10.1) 8.6 mg/dL (8.5-10.1) Magnesium Level 2.0 mg/dL (1.8-2.4) Total Bilirubin 0.3 mg/dL (0.2-1.0) Direct Bilirubin 0.1 mg/dL (0.0-0.2) Aspartate Amino Transf (AST/SGOT) 36 U/L (15-37) Alanine Aminotransferase (ALT/SGPT) 36 U/L (14-59) Alkaline Phosphatase 66 U/L (46-116) Creatine Kinase 587 U/L (26-192) Creatine Kinase MB (Mass) 5.9 ng/mL (0.0-3.6) Creatine Kinase MB Relative Index 1.0 % (0-4) Troponin I Quantitative < 0.017 ng/mL (0.000-0.055) 0.020 ng/mL (0.000-0.055) RW-Cgx-U-Type Natriuretic Peptide 191 pg/mL (0-124) Total Protein 7.5 g/dL (6.4-8.2) Albumin 3.9 g/dL (3.4-5.0) O2 Saturation 93 % (92-99) Arterial Blood pH 7.36 (7.35-7.45) Arterial Blood pCO2 at Patient Temp 59 mmHg (35-46) Arterial Blood pO2 at Patient Temp 69 mmHg (75-108) Arterial Blood HCO3 33 mmol/L (21-28) Arterial Blood Base Excess 6 mmol/L (-3-3) FiO2 36 Nasal Screen MRSA (PCR) Negative (Negative) Test 03/29/17 03:17 White Blood Count 11.0 x10^3/uL (4.0-11.0) Red Blood Count 4.06 x10^6/uL (3.50-5.40) Hemoglobin 12.0 g/dL (12.0-15.5) Hematocrit 36.2 % (36.0-47.0) Mean Corpuscular Volume 89 fL (79-100) Mean Corpuscular Hemoglobin 30 pg (25-35) Mean Corpuscular Hemoglobin Concent 33 g/dL (31-37) Red Cell Distribution Width 14.4 % (11.5-14.5) Platelet Count 230 x10^3/uL (140-400) Neutrophils (%) (Auto) 88 % (31-73) Lymphocytes (%) (Auto) 8 % (24-48) Monocytes (%) (Auto) 4 % (0-9) Eosinophils (%) (Auto) 0 % (0-3) Basophils (%) (Auto) 0 % (0-3) Neutrophils # (Auto) 9.7 x10^3uL (1.8-7.7) Lymphocytes # (Auto) 0.9 x10^3/uL (1.0-4.8) Monocytes # (Auto) 0.4 x10^3/uL (0.0-1.1) Eosinophils # (Auto) 0.0 x10^3/uL (0.0-0.7) Basophils # (Auto) 0.0 x10^3/uL (0.0-0.2) Segmented Neutrophils % 87 % (35-66) Band Neutrophils % 4 % (0-9) Lymphocytes % 9 % (24-48) Platelet Estimate Adequate (ADEQUATE) Sodium Level 144 mmol/L (136-145) Potassium Level 4.5 mmol/L (3.5-5.1) Chloride Level 105 mmol/L (98-107) Carbon Dioxide Level 36 mmol/L (21-32) Anion Gap 3 (6-14) Blood Urea Nitrogen 18 mg/dL (7-20) Creatinine 0.8 mg/dL (0.6-1.0) Estimated GFR (Cockcroft-Gault) 89.1 Glucose Level 143 mg/dL (70-99) Calcium Level 8.9 mg/dL (8.5-10.1) Laboratory Tests Test 03/29/17 03:17 White Blood Count 11.0 x10^3/uL (4.0-11.0) Red Blood Count 4.06 x10^6/uL (3.50-5.40) Hemoglobin 12.0 g/dL (12.0-15.5) Hematocrit 36.2 % (36.0-47.0) Mean Corpuscular Volume 89 fL (79-100) Mean Corpuscular Hemoglobin 30 pg (25-35) Mean Corpuscular Hemoglobin Concent 33 g/dL (31-37) Red Cell Distribution Width 14.4 % (11.5-14.5) Platelet Count 230 x10^3/uL (140-400) Neutrophils (%) (Auto) 88 % (31-73) Lymphocytes (%) (Auto) 8 % (24-48) Monocytes (%) (Auto) 4 % (0-9) Eosinophils (%) (Auto) 0 % (0-3) Basophils (%) (Auto) 0 % (0-3) Neutrophils # (Auto) 9.7 x10^3uL (1.8-7.7) Lymphocytes # (Auto) 0.9 x10^3/uL (1.0-4.8) Monocytes # (Auto) 0.4 x10^3/uL (0.0-1.1) Eosinophils # (Auto) 0.0 x10^3/uL (0.0-0.7) Basophils # (Auto) 0.0 x10^3/uL (0.0-0.2) Segmented Neutrophils % 87 % (35-66) Band Neutrophils % 4 % (0-9) Lymphocytes % 9 % (24-48) Platelet Estimate Adequate (ADEQUATE) Sodium Level 144 mmol/L (136-145) Potassium Level 4.5 mmol/L (3.5-5.1) Chloride Level 105 mmol/L (98-107) Carbon Dioxide Level 36 mmol/L (21-32) Anion Gap 3 (6-14) Blood Urea Nitrogen 18 mg/dL (7-20) Creatinine 0.8 mg/dL (0.6-1.0) Estimated GFR (Cockcroft-Gault) 89.1 Glucose Level 143 mg/dL (70-99) Calcium Level 8.9 mg/dL (8.5-10.1) Medications Current Medications Albuterol/ Ipratropium (Duoneb) 3 ml 1X ONCE NEB Last administered on 16:16; Start 03/27/17 at 16:15; Stop 03/27/17 at 16:16; Status DC Methylprednisolone Sodium Succinate (SOLU-Medrol 125MG VIAL) 125 mg 1X ONCE IV Last administered on 03/27/17 16:25; Start 03/27/17 at 16:15; Stop at 16:16; Status DC Azithromycin 250 ml @ 250 mls/hr 1X ONCE IV Last administered on 03/27/17 16:32; Start 03/27/17 at 16:15; Stop 03/27/17 at 17:14; Status DC Ceftriaxone Sodium 50 ml @ 100 mls/hr 1X ONCE IV Last administered on 20:34; Start 03/27/17 at 17:45; Stop 03/27/17 at 18:14; Status DC Magnesium Sulfate/ Dextrose 50 ml @ 25 mls/hr 1X ONCE IV Last administered on 03/27/17 17:31; Start 03/27/17 at 18:00; Stop 03/27/17 at 19:59; Status DC Albuterol/ Ipratropium (Duoneb) 3 ml 1X ONCE NEB ; Start 03/27/17 at 18:00; Stop 03/27/17 at 18:01; Status DC Ondansetron HCl (Zofran) 4 mg PRN Q8HRS PRN IV NAUSEA/VOMITING; Start at 17:30; Stop 03/28/17 at 17:29; Status DC Albuterol/ Ipratropium (Duoneb) 3 ml RTQID NEB ; Start 03/27/17 at 20:00; Stop 03/27/17 at 20:00; Status DC Methylprednisolone Sodium Succinate (SOLU-Medrol 40MG VIAL) 40 mg Q8HRS IV ; Start 03/27/17 at 22:00; Stop 03/27/17 at 22:00; Status DC Albuterol/ Ipratropium (Duoneb) 3 ml Q4HRS NEB ; Start 03/27/17 at 20:00; Stop 03/27/17 at 20:06; Status DC Methylprednisolone Sodium Succinate (SOLU-Medrol 40MG VIAL) 40 mg Q8HRS IV Last administered on 03/29/17 13:59; Start 03/27/17 at 22:00 Budesonide (Pulmicort) 0.5 mg RTBID NEB ; Start 03/27/17 at 20:00; Stop at 20:06; Status DC Oxymetazoline HCl (Afrin) 2 spray PRN BID PRN NS NASAL STUFFINESS; Start 03/27 at 19:15 Oxymetazoline HCl (Afrin) 2 spray 1X ONCE NS Last administered on 03/27/17 20:33; Start 03/27/17 at 19:30; Stop 03/27/17 at 19:31; Status DC Albuterol Sulfate (Ventolin Hfa) 1 puff QID IH ; Start 03/27/17 at 21:00; Stop 03/27/17 at 21:00; Status DC Albuterol Sulfate (Ventolin Neb Soln) 2.5 mg PRN Q4HRS PRN NEB SHORTNESS OF BREATH Last administered on 03/29/17 00:17; Start 03/27/17 at 19:45 Aspirin (Ecotrin) 81 mg DAILY PO Last administered on 03/29/17 08:43; Start 03/28/17 at 09:00 Fluticasone Propionate (Flonase) 2 spray DAILY NS Last administered on 08:59; Start 03/28/17 at 09:00 Furosemide (Lasix) 20 mg DAILY PO Last administered on 03/29/17 08:43; Start 03/28/17 at 09:00 Albuterol/ Ipratropium (Duoneb) 3 ml RTQID IH Last administered on 03/29/17 11:46; Start 03/27/17 at 21:00 Montelukast Sodium (Singulair) 10 mg DAILY PO Last administered on 03/29/17 08:39; Start 03/28/17 at 09:00 Prednisone (Prednisone) 10 mg DAILY PO Last administered on 03/28/17 09:23; Start 03/28/17 at 09:00; Stop 03/28/17 at 10:43; Status DC Sertraline HCl (Zoloft) 50 mg DAILY PO Last administered on 03/29/17 08:41; Start 03/28/17 at 09:00 Non-Formulary Medication 10.2 gm BID IH ; Start 03/27/17 at 21:00; Stop at 21:00; Status DC Pantoprazole Sodium (Protonix) 40 mg DAILYAC PO Last administered on 08:41; Start 03/28/17 at 07:30 Potassium Chloride (Klor-Con) 10 meq DAILYWBKFT PO Last administered on 08:40; Start 03/28/17 at 08:00 Budesonide (Pulmicort) 0.5 mg RTBID NEB Last administered on 03/29/17 07:40; Start 03/27/17 at 21:00 Promethazine HCl/ Codeine (Phenergan With Codeine) 5 ml PRN Q4HRS PRN PO COUGH Last administered on 03/28/17 19:51; Start 03/27/17 at 22:30 Acetaminophen/ Hydrocodone Bitart (Lortab 5/325) 1 tab PRN Q4HRS PRN PO MODERATE PAIN; Start 03/28/17 at 03:30; Stop 03/28/17 at 03:50; Status DC Ibuprofen (Motrin) 600 mg PRN Q6HRS PRN PO INFLAMMATION Last administered on 05:17; Start 03/28/17 at 04:45 Furosemide (Lasix) 40 mg 1X ONCE IVP Last administered on 03/28/17 16:38; Start 03/28/17 at 14:30; Stop 03/28/17 at 14:31; Status DC Levofloxacin/ Dextrose 100 ml @ 100 mls/hr Q24H IV Last administered on 13:58; Start 03/29/17 at 13:00 Guaifenesin (MUCINEX ER with DM) 1 tab BID PO Last administered on 03/29/17 13:58; Start 03/29/17 at 13:00 Active Scripts Active Prednisone 10 Mg Tablet 10 Mg PO DAILY 4 by mouth daily for 3 days then 3 by mouth daily for 3 days then 2 by mouth daily for 3 days then 1 by mouth daily for 3 days Potassium Chloride 10 Meq Capsule.er 1 Cap PO DAILY Fluticasone Propionate Nasal [place] (Fluticasone Propionate) 1 [place] 2 [place] NS DAILY Zoloft (Sertraline Hcl) 50 Mg Tablet 50 Mg PO DAILY Reported Albuterol Sulfate Neb Soln (Albuterol Sulfate) 2.5 Mg/3 Ml Vial.neb 2.5 Mg NEB Q4HRS PRN Nexium Capsule (Esomeprazole Magnesium) 40 Mg Capsule.dr 40 Mg PO DAILYAC Singulair Tablet (Montelukast Sodium) 10 Mg Tablet 1 Tab PO DAILY Lasix (Furosemide) 20 Mg Tablet 1 Tab PO DAILY Symbicort 160-4.5 Mcg Inhaler (Budesonide/Formoterol Fumarate) 10.2 Gm Hfa.aer.ad 10.2 Gm IH BID Albuterol Sulfate Hfa Inhaler (Albuterol Sulfate) 8.5 Gm Hfa.aer.ad 8.5 Gm IH PRN Duoneb 0.5 Mg-3 Mg/3 Ml Soln (Ipratropium/Albuterol Sulfate) 3 Ml Ampul.neb 3 Ml IH QID Aspir 81 (Aspirin) 81 Mg Tablet.dr 81 Mg PO DAILY Vitals/I & O Vital Sign - Last 24 Hours 03/28/17 03/28/17 03/28/17 03/28/17 15:00 15:55 19:00 20:00 Temp 98.1 98.1 Pulse 90 96 119 Resp 20 20 B/P (MAP) 132/85 (101) 104/73 (83) 119/68 (85) Pulse Ox 92 96 96 96 O2 Delivery Nasal Cannula Nasal Cannula Nasal Cannula Nasal Cannula O2 Flow Rate 3.0 4.0 4.0 4.0 03/28/17 03/28/17 03/28/17 03/29/17 20:00 20:15 23:00 00:19 Temp 98.9 98.9 Pulse 88 Resp 18 B/P (MAP) 139/70 (93) Pulse Ox 97 96 97 O2 Delivery Nasal Cannula Nasal Cannula Nasal Cannula Nasal Cannula O2 Flow Rate 4.0 4.0 4.0 4.0 03/29/17 03/29/17 03/29/17 03/29/17 03:11 07:00 07:41 07:42 Temp 98.6 98.6 98.6 98.6 Pulse 90 102 Resp 16 24 B/P (MAP) 136/73 (94) 155/82 (106) Pulse Ox 97 97 97 97 O2 Delivery Nasal Cannula Nasal Cannula Nasal Cannula Nasal Cannula O2 Flow Rate 3.0 4.0 4.0 4.0 03/29/17 03/29/17 03/29/17 03/29/17 08:15 08:15 09:17 09:18 Temp 98.6 98.6 98.6 98.6 Pulse 102 90 Resp 24 24 B/P (MAP) 155/82 (106) 155/73 (100) Pulse Ox 97 97 O2 Delivery Nasal Cannula Nasal Cannula Nasal Cannula Nasal Cannula O2 Flow Rate 4.0 4.0 5.0 4.0 03/29/17 03/29/17 03/29/17 09:28 11:16 11:46 Temp 98.5 98.5 Pulse 86 Resp 20 B/P (MAP) 120/74 (89) Pulse Ox 93 O2 Delivery Nasal Cannula Nasal Cannula Nasal Cannula O2 Flow Rate 4.0 3.0 3.0 Problem Qualifiers (1) Acute respiratory failure: Respiratory failure complication: hypoxia and hypercapnia Qualified Codes: J96.01 - Acute respiratory failure with hypoxia; J96.02 - Acute respiratory failure with hypercapnia BING GAMBLE MD Mar 29, 2017 14:12
--- NOTE | 2017-03-29 17:56 | CARD ---
APPROVED REPORT EXAM: Two-dimensional and M-mode echocardiogram with Doppler and color Doppler. Other Information Quality : Average Rhythm : NSR INDICATION COPD Dyspnea LV Function:Diastolic Murmur 2D DIMENSIONS RVDd2.7 (2.9-3.5cm)Left Atrium(2D)2.9 (1.6-4.0cm) IVSd1.2 (0.7-1.1cm)Aortic Root(2D)2.5 (2.0-3.7cm) LVDd4.8 (3.9-5.9cm)LVOT Diameter2.0 (1.8-2.4cm) PWd0.9 (0.7-1.1cm)LVDs3.0 (2.5-4.0cm) FS (%) 37.8 %SV71.5 ml LVEF(%)65.0 (>50%) Aortic Valve AoV Peak Isaiah.145.9cm/sAoV VTI23.2cm AO Peak GR.8.5mmHgLVOT VTI 18.25cm AO Mean GR.5mmHg Mitral Valve MV E Pdqdescm19.5cm/sMV DECEL [id number] MV A Woximejm18.2cm/sE/A Ratio0.8 TDI Lateral E' P. V11.84cm/sMedial E' P. V9.28cm/s E/Lateral E'6.0E/Medial E'7.6 Pulmonary Vein S1 Ldpyjffo94.2cm/sS2 Aqjxyleh88.51cm/s D2 Unroknfp44.5cm/s LEFT VENTRICLE The left ventricle is normal size. There is normal left ventricular wall thickness. Left ventricle sy stolic function is normal. The Ejection Fraction is 65%. There is normal LV segmental wall motion. Ti ssue Doppler imaging reveals mild left ventricular diastolic dysfunction. Transmitral Doppler flow pa ttern is Grade I-abnormal relaxation pattern. There is no ventricular septal defect visualized. RIGHT VENTRICLE The right ventricle is normal size. The right ventricular systolic function is normal. ATRIA The left atrium size is normal. The right atrium size is dilated The interatrial septum is intact wit h no evidence for an atrial septal defect or patent foramen ovale as noted on 2-D or Doppler imaging. AORTIC VALVE The aortic valve is normal in structure and function. The aortic valve is trileaflet. Doppler and Col or Flow revealed no significant aortic regurgitation. There is no significant aortic valvular stenosi s. MITRAL VALVE The mitral valve is normal in structure. There is no mitral valve stenosis. Doppler and Color Flow re vealed mild to moderate mitral regurgitation. TRICUSPID VALVE The tricuspid valve is normal in structure and function. Doppler and Color Flow revealed no tricuspid valve regurgitation noted. Unable to estimate PA pressure. There is no tricuspid valve stenosis. PULMONIC VALVE The pulmonic valve is not well visualized. Doppler and Color Flow revealed trivial pulmonic valvular regurgitation. There is no pulmonic valvular stenosis. GREAT VESSELS The aortic root is normal in size. The ascending aorta is normal in size. Normal pulmonary venous lori w (Doppler). The IVC is dilated and collapses<50% with inspiration. PERICARDIAL EFFUSION There is no evidence of significant pericardial effusion. Critical Notification Critical Value: No <Conclusion> Left ventricle systolic function is normal. The Ejection Fraction is 65%. Tissue Doppler imaging reveals mild left ventricular diastolic dysfunction. Transmitral Doppler flow pattern is Grade I-abnormal relaxation pattern. The left atrium size is normal. The right atrium size is dilated The aortic valve is normal in structure and function. The aortic valve is trileaflet. Doppler and Color Flow revealed mild to moderate mitral regurgitation. Doppler and Color Flow revealed no tricuspid valve regurgitation noted. Unable to estimate PA pressur e. Doppler and Color Flow revealed trivial pulmonic valvular regurgitation. There is no evidence of significant pericardial effusion.
[2017-03-30] MEDS: PROMETH/CODEINE 6.25/10MG 5 ML SYRUP. PO PRN (00:48)
[2017-03-30 03:34] VITALS: BP 138/81
[2017-03-30 05:07] LABS: BASO % 0 % (0-3); EOS % 0 % (0-3); HEMATOCRIT 37.1 % (36.0-47.0); HEMOGLOBIN 11.9 g/dL (12.0-15.5); LYMPH # 0.9 x10^3/uL (1.0-4.8); LYMPH % 8 % (24-48); MEAN CORPUSCULAR HEMOGLOBIN 29 pg (25-35); MEAN CORPUSCULAR HGB CONC 32 g/dL (31-37); MEAN CORPUSCULAR VOLUME 90 fL (79-100); MONO % 2 % (0-9); NEUT % 90 % (31-73); PLATELET COUNT 250 x10^3/uL (140-400); RED BLOOD COUNT 4.12 x10^6/uL (3.50-5.40); RED CELL DISTRIBUTION WIDTH 14.5 % (11.5-14.5); WHITE BLOOD COUNT 11.4 x10^3/uL (4.0-11.0)
[2017-03-30 05:32] LABS: CALCIUM 8.9 mg/dL (8.5-10.1); CREATININE 0.9 mg/dL (0.6-1.0); GFR 77.8; POTASSIUM 4.7 mmol/L (3.5-5.1)
[2017-03-30] MEDS: methylPREDNISolone SOD SUCC PF 40 MG/ML VIAL. IV SCH ×3 (06:24→22:19)
[2017-03-30] MEDS: IPRATRPIUM/ALBUTEROL 0.5/2.5MG 3 ML NEBU. IH SCH ×4 (06:55→19:13)
[2017-03-30] MEDS: BUDESONIDE 0.5 MG/2 ML NEBU. NEB SCH ×2 (06:56→19:13)
[2017-03-30 07:00] VITALS: BP 131/74
[2017-03-30] MEDS: FLUTICASONE 50MCG/NASAL SPRAY 16GM BOTTLE. NS SCH (09:00)
[2017-03-30] MEDS: guaiFENesin DM 600/30MG 1 TAB TAB.ER.12H PO SCH ×2 (09:06→22:19)
[2017-03-30] MEDS: PANTOPRAZOLE 40 MG TABLET.DR. PO SCH (09:06)
[2017-03-30] MEDS: MONTELUKAST SODIUM 10 MG TABLET. PO SCH (09:07)
[2017-03-30] MEDS: ASPIRIN ENTERIC COATED 81 MG TABLET.DR. PO SCH (09:07)
[2017-03-30] MEDS: POTASSIUM CHLORIDE 10 MEQ TABLET.ER. PO SCH (09:07)
[2017-03-30] MEDS: SERTRALINE 50 MG TABLET. PO SCH (09:07)
[2017-03-30] MEDS: FUROSEMIDE 20 MG TABLET PO SCH (09:07)
--- NOTE | 2017-03-30 09:35 | PDOC ---
PROGRESS NOTES Subjective Subjective Mrs. Janie Stevens was in no acute distress. She relayed that she wanted to be fully well before leaving, and not have to come back. She stated that she still had increased work of breathing, dyspnea, and cough. She is not having any chest pains, no palpitations, no loss of consciousness. Objective Objective Vital Signs Date Time Temp Pulse Resp B/P (MAP) Pulse Ox O2 Delivery O2 Flow Rate FiO2 03/30/17 07:00 98.2 77 19 131/74 (93) 95 Nasal Cannula 3.0 98.2 Intake and Output 03/31/17 07:00 Intake Total 250 ml Balance 250 ml Intake Oral 250 ml Physical Exam Heart: Regular rate, Normal S1, Normal S2 Extremities: No clubbing, No cyanosis, No edema General: Alert, Oriented X3, Cooperative HEENT: Atraumatic, PERRLA, EOMI Lungs: Other (Cough, decreased breath sounds, increased work of breathing, dyspnea) MUSCULOSKELETAL: No joint tenderness, No deformity, No swelling Neck: Other (JVD) Neuro: Normal speech, Normal tone, Sensation intact Psych/Mental Status: Mental status NL, Mood NL Diagnosis COPD: Acute on Chronic RESPIRATORY FAILURE: Acute HYPERTENSION: Accelerated hypertension Assessment Assessment This patient comes in with acute respiratory distress secondary to a COPD exacerbation. She has cor pulmonale and right heart failure due to that. EKG showed sinus tachycardia, atrial premature complexes, and an abnormal left axis deviation. There was also a QRS contour abnormality. The Echocardiogram shows an LV EF of 65%, diastolic dysfunction and unable to estimate the PA pressure. Would continue with IV Lasix. Thank you very much for asking me to participate in the care of this patie Comment Review of Relevant I have reviewed the following items paulette (where applicable) has been applied. Labs Laboratory Tests Test 03/29/17 03:17 03/30/17 04:20 White Blood Count 11.0 x10^3/uL (4.0-11.0) 11.4 x10^3/uL (4.0-11.0) Red Blood Count 4.06 x10^6/uL (3.50-5.40) 4.12 x10^6/uL (3.50-5.40) Hemoglobin 12.0 g/dL (12.0-15.5) 11.9 g/dL (12.0-15.5) Hematocrit 36.2 % (36.0-47.0) 37.1 % (36.0-47.0) Mean Corpuscular Volume 89 fL (79-100) 90 fL (79-100) Mean Corpuscular Hemoglobin 30 pg (25-35) 29 pg (25-35) Mean Corpuscular Hemoglobin Concent 33 g/dL (31-37) 32 g/dL (31-37) Red Cell Distribution Width 14.4 % (11.5-14.5) 14.5 % (11.5-14.5) Platelet Count 230 x10^3/uL (140-400) 250 x10^3/uL (140-400) Neutrophils (%) (Auto) 88 % (31-73) 90 % (31-73) Lymphocytes (%) (Auto) 8 % (24-48) 8 % (24-48) Monocytes (%) (Auto) 4 % (0-9) 2 % (0-9) Eosinophils (%) (Auto) 0 % (0-3) 0 % (0-3) Basophils (%) (Auto) 0 % (0-3) 0 % (0-3) Neutrophils # (Auto) 9.7 x10^3uL (1.8-7.7) 10.3 x10^3uL (1.8-7.7) Lymphocytes # (Auto) 0.9 x10^3/uL (1.0-4.8) 0.9 x10^3/uL (1.0-4.8) Monocytes # (Auto) 0.4 x10^3/uL (0.0-1.1) 0.3 x10^3/uL (0.0-1.1) Eosinophils # (Auto) 0.0 x10^3/uL (0.0-0.7) 0.0 x10^3/uL (0.0-0.7) Basophils # (Auto) 0.0 x10^3/uL (0.0-0.2) 0.0 x10^3/uL (0.0-0.2) Segmented Neutrophils % 87 % (35-66) Band Neutrophils % 4 % (0-9) Lymphocytes % 9 % (24-48) Platelet Estimate Adequate (ADEQUATE) Sodium Level 144 mmol/L (136-145) 145 mmol/L (136-145) Potassium Level 4.5 mmol/L (3.5-5.1) 4.7 mmol/L (3.5-5.1) Chloride Level 105 mmol/L (98-107) 106 mmol/L (98-107) Carbon Dioxide Level 36 mmol/L (21-32) 37 mmol/L (21-32) Anion Gap 3 (6-14) 2 (6-14) Blood Urea Nitrogen 18 mg/dL (7-20) 17 mg/dL (7-20) Creatinine 0.8 mg/dL (0.6-1.0) 0.9 mg/dL (0.6-1.0) Estimated GFR (Cockcroft-Gault) 89.1 77.8 Glucose Level 143 mg/dL (70-99) 150 mg/dL (70-99) Calcium Level 8.9 mg/dL (8.5-10.1) 8.9 mg/dL (8.5-10.1) Laboratory Tests Test 03/30/17 04:20 White Blood Count 11.4 x10^3/uL (4.0-11.0) Red Blood Count 4.12 x10^6/uL (3.50-5.40) Hemoglobin 11.9 g/dL (12.0-15.5) Hematocrit 37.1 % (36.0-47.0) Mean Corpuscular Volume 90 fL (79-100) Mean Corpuscular Hemoglobin 29 pg (25-35) Mean Corpuscular Hemoglobin Concent 32 g/dL (31-37) Red Cell Distribution Width 14.5 % (11.5-14.5) Platelet Count 250 x10^3/uL (140-400) Neutrophils (%) (Auto) 90 % (31-73) Lymphocytes (%) (Auto) 8 % (24-48) Monocytes (%) (Auto) 2 % (0-9) Eosinophils (%) (Auto) 0 % (0-3) Basophils (%) (Auto) 0 % (0-3) Neutrophils # (Auto) 10.3 x10^3uL (1.8-7.7) Lymphocytes # (Auto) 0.9 x10^3/uL (1.0-4.8) Monocytes # (Auto) 0.3 x10^3/uL (0.0-1.1) Eosinophils # (Auto) 0.0 x10^3/uL (0.0-0.7) Basophils # (Auto) 0.0 x10^3/uL (0.0-0.2) Sodium Level 145 mmol/L (136-145) Potassium Level 4.7 mmol/L (3.5-5.1) Chloride Level 106 mmol/L (98-107) Carbon Dioxide Level 37 mmol/L (21-32) Anion Gap 2 (6-14) Blood Urea Nitrogen 17 mg/dL (7-20) Creatinine 0.9 mg/dL (0.6-1.0) Estimated GFR (Cockcroft-Gault) 77.8 Glucose Level 150 mg/dL (70-99) Calcium Level 8.9 mg/dL (8.5-10.1) Medications Current Medications Albuterol/ Ipratropium (Duoneb) 3 ml 1X ONCE NEB Last administered on 16:16; Start 03/27/17 at 16:15; Stop 03/27/17 at 16:16; Status DC Methylprednisolone Sodium Succinate (SOLU-Medrol 125MG VIAL) 125 mg 1X ONCE IV Last administered on 03/27/17 16:25; Start 03/27/17 at 16:15; Stop at 16:16; Status DC Azithromycin 250 ml @ 250 mls/hr 1X ONCE IV Last administered on 03/27/17 16:32; Start 03/27/17 at 16:15; Stop 03/27/17 at 17:14; Status DC Ceftriaxone Sodium 50 ml @ 100 mls/hr 1X ONCE IV Last administered on 20:34; Start 03/27/17 at 17:45; Stop 03/27/17 at 18:14; Status DC Magnesium Sulfate/ Dextrose 50 ml @ 25 mls/hr 1X ONCE IV Last administered on 03/27/17 17:31; Start 03/27/17 at 18:00; Stop 03/27/17 at 19:59; Status DC Albuterol/ Ipratropium (Duoneb) 3 ml 1X ONCE NEB ; Start 03/27/17 at 18:00; Stop 03/27/17 at 18:01; Status DC Ondansetron HCl (Zofran) 4 mg PRN Q8HRS PRN IV NAUSEA/VOMITING; Start at 17:30; Stop 03/28/17 at 17:29; Status DC Albuterol/ Ipratropium (Duoneb) 3 ml RTQID NEB ; Start 03/27/17 at 20:00; Stop 03/27/17 at 20:00; Status DC Methylprednisolone Sodium Succinate (SOLU-Medrol 40MG VIAL) 40 mg Q8HRS IV ; Start 03/27/17 at 22:00; Stop 03/27/17 at 22:00; Status DC Albuterol/ Ipratropium (Duoneb) 3 ml Q4HRS NEB ; Start 03/27/17 at 20:00; Stop 03/27/17 at 20:06; Status DC Methylprednisolone Sodium Succinate (SOLU-Medrol 40MG VIAL) 40 mg Q8HRS IV Last administered on 03/30/17 06:24; Start 03/27/17 at 22:00 Budesonide (Pulmicort) 0.5 mg RTBID NEB ; Start 03/27/17 at 20:00; Stop at 20:06; Status DC Oxymetazoline HCl (Afrin) 2 spray PRN BID PRN NS NASAL STUFFINESS; Start 03/27 at 19:15 Oxymetazoline HCl (Afrin) 2 spray 1X ONCE NS Last administered on 03/27/17 20:33; Start 03/27/17 at 19:30; Stop 03/27/17 at 19:31; Status DC Albuterol Sulfate (Ventolin Hfa) 1 puff QID IH ; Start 03/27/17 at 21:00; Stop 03/27/17 at 21:00; Status DC Albuterol Sulfate (Ventolin Neb Soln) 2.5 mg PRN Q4HRS PRN NEB SHORTNESS OF BREATH Last administered on 03/29/17 00:17; Start 03/27/17 at 19:45 Aspirin (Ecotrin) 81 mg DAILY PO Last administered on 03/30/17 09:07; Start 03/28/17 at 09:00 Fluticasone Propionate (Flonase) 2 spray DAILY NS Last administered on 10/17/ 17at 09:00; Start 03/28/17 at 09:00 Furosemide (Lasix) 20 mg DAILY PO Last administered on 03/30/17 09:07; Start 03/28/17 at 09:00 Albuterol/ Ipratropium (Duoneb) 3 ml RTQID IH Last administered on 03/30/17 06:55; Start 03/27/17 at 21:00 Montelukast Sodium (Singulair) 10 mg DAILY PO Last administered on 03/30/17 09:07; Start 03/28/17 at 09:00 Prednisone (Prednisone) 10 mg DAILY PO Last administered on 03/28/17 09:23; Start 03/28/17 at 09:00; Stop 03/28/17 at 10:43; Status DC Sertraline HCl (Zoloft) 50 mg DAILY PO Last administered on 03/30/17 09:07; Start 03/28/17 at 09:00 Non-Formulary Medication 10.2 gm BID IH ; Start 03/27/17 at 21:00; Stop at 21:00; Status DC Pantoprazole Sodium (Protonix) 40 mg DAILYAC PO Last administered on 09:06; Start 03/28/17 at 07:30 Potassium Chloride (Klor-Con) 10 meq DAILYWBKFT PO Last administered on 09:07; Start 03/28/17 at 08:00 Budesonide (Pulmicort) 0.5 mg RTBID NEB Last administered on 03/30/17 06:56; Start 03/27/17 at 21:00 Promethazine HCl/ Codeine (Phenergan With Codeine) 5 ml PRN Q4HRS PRN PO COUGH Last administered on 03/30/17 00:48; Start 03/27/17 at 22:30 Acetaminophen/ Hydrocodone Bitart (Lortab 5/325) 1 tab PRN Q4HRS PRN PO MODERATE PAIN; Start 03/28/17 at 03:30; Stop 03/28/17 at 03:50; Status DC Ibuprofen (Motrin) 600 mg PRN Q6HRS PRN PO INFLAMMATION Last administered on 05:17; Start 03/28/17 at 04:45 Furosemide (Lasix) 40 mg 1X ONCE IVP Last administered on 03/28/17 16:38; Start 03/28/17 at 14:30; Stop 03/28/17 at 14:31; Status DC Levofloxacin/ Dextrose 100 ml @ 100 mls/hr Q24H IV Last administered on 13:58; Start 03/29/17 at 13:00 Guaifenesin (MUCINEX ER with DM) 1 tab BID PO Last administered on 03/30/17 09:06; Start 03/29/17 at 13:00 Active Scripts Active Prednisone 10 Mg Tablet 10 Mg PO DAILY 4 by mouth daily for 3 days then 3 by mouth daily for 3 days then 2 by mouth daily for 3 days then 1 by mouth daily for 3 days Potassium Chloride 10 Meq Capsule.er 1 Cap PO DAILY Fluticasone Propionate Nasal [place] (Fluticasone Propionate) 1 Universal Universal 2 Universal NS DAILY Zoloft (Sertraline Hcl) 50 Mg Tablet 50 Mg PO DAILY Reported Albuterol Sulfate Neb Soln (Albuterol Sulfate) 2.5 Mg/3 Ml Vial.neb 2.5 Mg NEB Q4HRS PRN Nexium Capsule (Esomeprazole Magnesium) 40 Mg Capsule. 40 Mg PO DAILYAC Singulair Tablet (Montelukast Sodium) 10 Mg Tablet 1 Tab PO DAILY Lasix (Furosemide) 20 Mg Tablet 1 Tab PO DAILY Symbicort 160-4.5 Mcg Inhaler (Budesonide/Formoterol Fumarate) 10.2 Gm Hfa.aer.ad 10.2 Gm IH BID Albuterol Sulfate Hfa Inhaler (Albuterol Sulfate) 8.5 Gm Hfa.aer.ad 8.5 Gm IH PRN Duoneb 0.5 Mg-3 Mg/3 Ml Soln (Ipratropium/Albuterol Sulfate) 3 Ml Ampul.neb 3 Ml IH QID Aspir 81 (Aspirin) 81 Mg Tablet. 81 Mg PO DAILY Vitals/I & O Vital Sign - Last 24 Hours 03/29/17 03/29/17 03/29/17 03/29/17 11:16 11:46 15:00 15:27 Temp 98.5 98.3 98.5 98.3 Pulse 86 87 Resp 20 18 B/P (MAP) 120/74 (89) 117/82 (94) Pulse Ox 93 96 O2 Delivery Nasal Cannula Nasal Cannula Nasal Cannula Nasal Cannula O2 Flow Rate 3.0 3.0 3.0 3.0 03/29/17 03/29/17 03/29/17 03/29/17 19:57 20:04 20:15 20:18 Temp 98.3 98.3 Pulse 96 Resp 18 B/P (MAP) 128/84 (99) Pulse Ox 92 94 94 O2 Delivery Nasal Cannula Nasal Cannula Nasal Cannula Nasal Cannula O2 Flow Rate 3.0 3.0 3.0 3.0 03/29/17 03/30/17 03/30/17 03/30/17 22:50 03:34 06:57 07:00 Temp 97.8 98.0 98.2 97.8 98.0 98.2 Pulse 77 74 77 Resp 20 22 19 B/P (MAP) 141/87 (105) 138/81 (100) 131/74 (93) Pulse Ox 96 97 95 O2 Delivery Nasal Cannula Nasal Cannula Nasal Cannula Nasal Cannula O2 Flow Rate 3.0 3.0 4.0 3.0 Intake and Output 03/30/17 03/30/17 03/31/17 15:00 23:00 07:00 Intake Total 250 ml Balance 250 ml BING GAMBLE MD Mar 30, 2017 09:35
[2017-03-30 11:00] VITALS: BP 129/62
--- NOTE | 2017-03-30 12:44 | PDOC ---
PROGRESS NOTES Chief Complaint Chief Complaint Acute on chronic respiratory failure Cor pulmonale w/ RHF SOB cough COPD exacerbation Hemoptysis PMHx: COPD, previous tobacco abuse, hysterectomy, tonsillectomy, cardiac catheterization, exploratory surgery. History of Present Illness History of Present Illness Pt seen at bedside in the cardiovascular care unit. Pt continues to wheeze with productive cough. Pulm is following-breathing txs, steroids, pulmicort, and BiPAP if needed. Cardio is following. C/o SOB but denies any fevers or chills. No substernal CP, but c/o pain "expanding in sides" with inhalation while gesturing toward ribs/lung bases b/l. Patient normally uses 2L supp. O2 at home , occasionally uses 3L when SOB is "bad." Continue to monitor on medical floor. Vitals Vitals Vital Signs Date Time Temp Pulse Resp B/P (MAP) Pulse Ox O2 Delivery O2 Flow Rate FiO2 03/30/17 10:54 Nasal Cannula 3.0 03/30/17 07:00 98.2 77 19 131/74 (93) 95 98.2 Physical Exam General: Alert, Oriented X3, Cooperative Heart: Regular rate, Normal S1, Normal S2 Lungs: Wheezing, Crackles Abdomen: Normal bowel sounds, Soft Extremities: No clubbing, No cyanosis, No edema Skin: No rashes, No significant lesion Labs LABS Laboratory Tests Test 03/30/17 04:20 White Blood Count 11.4 x10^3/uL (4.0-11.0) Red Blood Count 4.12 x10^6/uL (3.50-5.40) Hemoglobin 11.9 g/dL (12.0-15.5) Hematocrit 37.1 % (36.0-47.0) Mean Corpuscular Volume 90 fL (79-100) Mean Corpuscular Hemoglobin 29 pg (25-35) Mean Corpuscular Hemoglobin Concent 32 g/dL (31-37) Red Cell Distribution Width 14.5 % (11.5-14.5) Platelet Count 250 x10^3/uL (140-400) Neutrophils (%) (Auto) 90 % (31-73) Lymphocytes (%) (Auto) 8 % (24-48) Monocytes (%) (Auto) 2 % (0-9) Eosinophils (%) (Auto) 0 % (0-3) Basophils (%) (Auto) 0 % (0-3) Neutrophils # (Auto) 10.3 x10^3uL (1.8-7.7) Lymphocytes # (Auto) 0.9 x10^3/uL (1.0-4.8) Monocytes # (Auto) 0.3 x10^3/uL (0.0-1.1) Eosinophils # (Auto) 0.0 x10^3/uL (0.0-0.7) Basophils # (Auto) 0.0 x10^3/uL (0.0-0.2) Sodium Level 145 mmol/L (136-145) Potassium Level 4.7 mmol/L (3.5-5.1) Chloride Level 106 mmol/L (98-107) Carbon Dioxide Level 37 mmol/L (21-32) Anion Gap 2 (6-14) Blood Urea Nitrogen 17 mg/dL (7-20) Creatinine 0.9 mg/dL (0.6-1.0) Estimated GFR (Cockcroft-Gault) 77.8 Glucose Level 150 mg/dL (70-99) Calcium Level 8.9 mg/dL (8.5-10.1) Review of Systems Review of Systems C/o Pain in her ribs but denies substernal chest pain. Has SOB with cough productive of yellowish sputum, occasional hemoptysis. Denies N/V/D. AOCx3. Assessment and Plan Assessmemt and Plan Acute on chronic respiratory failure Cor pulmonale w/ RHF SOB cough COPD exacerbation Hemoptysis Plan: Continue antibiotics Continue nebs Continue steroids Continue O2 supplementation Await pulmonology recommendation(s) PT/OT Recheck labs Probable discharge in 36-48 hours Problems: Comment Review of Relevant I have reviewed the following items paulette (where applicable) has been applied. Labs Laboratory Tests Test 03/29/17 03:17 03/30/17 04:20 White Blood Count 11.0 x10^3/uL (4.0-11.0) 11.4 x10^3/uL (4.0-11.0) Red Blood Count 4.06 x10^6/uL (3.50-5.40) 4.12 x10^6/uL (3.50-5.40) Hemoglobin 12.0 g/dL (12.0-15.5) 11.9 g/dL (12.0-15.5) Hematocrit 36.2 % (36.0-47.0) 37.1 % (36.0-47.0) Mean Corpuscular Volume 89 fL (79-100) 90 fL (79-100) Mean Corpuscular Hemoglobin 30 pg (25-35) 29 pg (25-35) Mean Corpuscular Hemoglobin Concent 33 g/dL (31-37) 32 g/dL (31-37) Red Cell Distribution Width 14.4 % (11.5-14.5) 14.5 % (11.5-14.5) Platelet Count 230 x10^3/uL (140-400) 250 x10^3/uL (140-400) Neutrophils (%) (Auto) 88 % (31-73) 90 % (31-73) Lymphocytes (%) (Auto) 8 % (24-48) 8 % (24-48) Monocytes (%) (Auto) 4 % (0-9) 2 % (0-9) Eosinophils (%) (Auto) 0 % (0-3) 0 % (0-3) Basophils (%) (Auto) 0 % (0-3) 0 % (0-3) Neutrophils # (Auto) 9.7 x10^3uL (1.8-7.7) 10.3 x10^3uL (1.8-7.7) Lymphocytes # (Auto) 0.9 x10^3/uL (1.0-4.8) 0.9 x10^3/uL (1.0-4.8) Monocytes # (Auto) 0.4 x10^3/uL (0.0-1.1) 0.3 x10^3/uL (0.0-1.1) Eosinophils # (Auto) 0.0 x10^3/uL (0.0-0.7) 0.0 x10^3/uL (0.0-0.7) Basophils # (Auto) 0.0 x10^3/uL (0.0-0.2) 0.0 x10^3/uL (0.0-0.2) Segmented Neutrophils % 87 % (35-66) Band Neutrophils % 4 % (0-9) Lymphocytes % 9 % (24-48) Platelet Estimate Adequate (ADEQUATE) Sodium Level 144 mmol/L (136-145) 145 mmol/L (136-145) Potassium Level 4.5 mmol/L (3.5-5.1) 4.7 mmol/L (3.5-5.1) Chloride Level 105 mmol/L (98-107) 106 mmol/L (98-107) Carbon Dioxide Level 36 mmol/L (21-32) 37 mmol/L (21-32) Anion Gap 3 (6-14) 2 (6-14) Blood Urea Nitrogen 18 mg/dL (7-20) 17 mg/dL (7-20) Creatinine 0.8 mg/dL (0.6-1.0) 0.9 mg/dL (0.6-1.0) Estimated GFR (Cockcroft-Gault) 89.1 77.8 Glucose Level 143 mg/dL (70-99) 150 mg/dL (70-99) Calcium Level 8.9 mg/dL (8.5-10.1) 8.9 mg/dL (8.5-10.1) Laboratory Tests Test 03/30/17 04:20 White Blood Count 11.4 x10^3/uL (4.0-11.0) Red Blood Count 4.12 x10^6/uL (3.50-5.40) Hemoglobin 11.9 g/dL (12.0-15.5) Hematocrit 37.1 % (36.0-47.0) Mean Corpuscular Volume 90 fL (79-100) Mean Corpuscular Hemoglobin 29 pg (25-35) Mean Corpuscular Hemoglobin Concent 32 g/dL (31-37) Red Cell Distribution Width 14.5 % (11.5-14.5) Platelet Count 250 x10^3/uL (140-400) Neutrophils (%) (Auto) 90 % (31-73) Lymphocytes (%) (Auto) 8 % (24-48) Monocytes (%) (Auto) 2 % (0-9) Eosinophils (%) (Auto) 0 % (0-3) Basophils (%) (Auto) 0 % (0-3) Neutrophils # (Auto) 10.3 x10^3uL (1.8-7.7) Lymphocytes # (Auto) 0.9 x10^3/uL (1.0-4.8) Monocytes # (Auto) 0.3 x10^3/uL (0.0-1.1) Eosinophils # (Auto) 0.0 x10^3/uL (0.0-0.7) Basophils # (Auto) 0.0 x10^3/uL (0.0-0.2) Sodium Level 145 mmol/L (136-145) Potassium Level 4.7 mmol/L (3.5-5.1) Chloride Level 106 mmol/L (98-107) Carbon Dioxide Level 37 mmol/L (21-32) Anion Gap 2 (6-14) Blood Urea Nitrogen 17 mg/dL (7-20) Creatinine 0.9 mg/dL (0.6-1.0) Estimated GFR (Cockcroft-Gault) 77.8 Glucose Level 150 mg/dL (70-99) Calcium Level 8.9 mg/dL (8.5-10.1) Medications Current Medications Albuterol/ Ipratropium (Duoneb) 3 ml 1X ONCE NEB Last administered on 16:16; Start 03/27/17 at 16:15; Stop 03/27/17 at 16:16; Status DC Methylprednisolone Sodium Succinate (SOLU-Medrol 125MG VIAL) 125 mg 1X ONCE IV Last administered on 03/27/17 16:25; Start 03/27/17 at 16:15; Stop at 16:16; Status DC Azithromycin 250 ml @ 250 mls/hr 1X ONCE IV Last administered on 03/27/17 16:32; Start 03/27/17 at 16:15; Stop 03/27/17 at 17:14; Status DC Ceftriaxone Sodium 50 ml @ 100 mls/hr 1X ONCE IV Last administered on 20:34; Start 03/27/17 at 17:45; Stop 03/27/17 at 18:14; Status DC Magnesium Sulfate/ Dextrose 50 ml @ 25 mls/hr 1X ONCE IV Last administered on 03/27/17 17:31; Start 03/27/17 at 18:00; Stop 03/27/17 at 19:59; Status DC Albuterol/ Ipratropium (Duoneb) 3 ml 1X ONCE NEB ; Start 03/27/17 at 18:00; Stop 03/27/17 at 18:01; Status DC Ondansetron HCl (Zofran) 4 mg PRN Q8HRS PRN IV NAUSEA/VOMITING; Start at 17:30; Stop 03/28/17 at 17:29; Status DC Albuterol/ Ipratropium (Duoneb) 3 ml RTQID NEB ; Start 03/27/17 at 20:00; Stop 03/27/17 at 20:00; Status DC Methylprednisolone Sodium Succinate (SOLU-Medrol 40MG VIAL) 40 mg Q8HRS IV ; Start 03/27/17 at 22:00; Stop 03/27/17 at 22:00; Status DC Albuterol/ Ipratropium (Duoneb) 3 ml Q4HRS NEB ; Start 03/27/17 at 20:00; Stop 03/27/17 at 20:06; Status DC Methylprednisolone Sodium Succinate (SOLU-Medrol 40MG VIAL) 40 mg Q8HRS IV Last administered on 03/30/17 06:24; Start 03/27/17 at 22:00 Budesonide (Pulmicort) 0.5 mg RTBID NEB ; Start 03/27/17 at 20:00; Stop at 20:06; Status DC Oxymetazoline HCl (Afrin) 2 spray PRN BID PRN NS NASAL STUFFINESS; Start 03/27 at 19:15 Oxymetazoline HCl (Afrin) 2 spray 1X ONCE NS Last administered on 03/27/17 20:33; Start 03/27/17 at 19:30; Stop 03/27/17 at 19:31; Status DC Albuterol Sulfate (Ventolin Hfa) 1 puff QID IH ; Start 03/27/17 at 21:00; Stop 03/27/17 at 21:00; Status DC Albuterol Sulfate (Ventolin Neb Soln) 2.5 mg PRN Q4HRS PRN NEB SHORTNESS OF BREATH Last administered on 03/29/17 00:17; Start 03/27/17 at 19:45 Aspirin (Ecotrin) 81 mg DAILY PO Last administered on 03/30/17 09:07; Start 03/28/17 at 09:00 Fluticasone Propionate (Flonase) 2 spray DAILY NS Last administered on 09:00; Start 03/28/17 at 09:00 Furosemide (Lasix) 20 mg DAILY PO Last administered on 03/30/17 09:07; Start 03/28/17 at 09:00 Albuterol/ Ipratropium (Duoneb) 3 ml RTQID IH Last administered on 03/30/17 10:53; Start 03/27/17 at 21:00 Montelukast Sodium (Singulair) 10 mg DAILY PO Last administered on 03/30/17 09:07; Start 03/28/17 at 09:00 Prednisone (Prednisone) 10 mg DAILY PO Last administered on 03/28/17 09:23; Start 03/28/17 at 09:00; Stop 03/28/17 at 10:43; Status DC Sertraline HCl (Zoloft) 50 mg DAILY PO Last administered on 03/30/17 09:07; Start 03/28/17 at 09:00 Non-Formulary Medication 10.2 gm BID IH ; Start 03/27/17 at 21:00; Stop at 21:00; Status DC Pantoprazole Sodium (Protonix) 40 mg DAILYAC PO Last administered on 09:06; Start 03/28/17 at 07:30 Potassium Chloride (Klor-Con) 10 meq DAILYWBKFT PO Last administered on 09:07; Start 03/28/17 at 08:00 Budesonide (Pulmicort) 0.5 mg RTBID NEB Last administered on 03/30/17 06:56; Start 03/27/17 at 21:00 Promethazine HCl/ Codeine (Phenergan With Codeine) 5 ml PRN Q4HRS PRN PO COUGH Last administered on 03/30/17 00:48; Start 03/27/17 at 22:30 Acetaminophen/ Hydrocodone Bitart (Lortab 5/325) 1 tab PRN Q4HRS PRN PO MODERATE PAIN; Start 03/28/17 at 03:30; Stop 03/28/17 at 03:50; Status DC Ibuprofen (Motrin) 600 mg PRN Q6HRS PRN PO INFLAMMATION Last administered on 05:17; Start 03/28/17 at 04:45 Furosemide (Lasix) 40 mg 1X ONCE IVP Last administered on 03/28/17 16:38; Start 03/28/17 at 14:30; Stop 03/28/17 at 14:31; Status DC Levofloxacin/ Dextrose 100 ml @ 100 mls/hr Q24H IV Last administered on 13:58; Start 03/29/17 at 13:00 Guaifenesin (MUCINEX ER with DM) 1 tab BID PO Last administered on 03/30/17 09:06; Start 03/29/17 at 13:00 Active Scripts Active Prednisone 10 Mg Tablet 10 Mg PO DAILY 4 by mouth daily for 3 days then 3 by mouth daily for 3 days then 2 by mouth daily for 3 days then 1 by mouth daily for 3 days Potassium Chloride 10 Meq Capsule.er 1 Cap PO DAILY Fluticasone Propionate Nasal [place] (Fluticasone Propionate) 1 [place] 2 [place] NS DAILY Zoloft (Sertraline Hcl) 50 Mg Tablet 50 Mg PO DAILY Reported Albuterol Sulfate Neb Soln (Albuterol Sulfate) 2.5 Mg/3 Ml Vial.neb 2.5 Mg NEB Q4HRS PRN Nexium Capsule (Esomeprazole Magnesium) 40 Mg Capsule. 40 Mg PO DAILYAC Singulair Tablet (Montelukast Sodium) 10 Mg Tablet 1 Tab PO DAILY Lasix (Furosemide) 20 Mg Tablet 1 Tab PO DAILY Symbicort 160-4.5 Mcg Inhaler (Budesonide/Formoterol Fumarate) 10.2 Gm Hfa.aer.ad 10.2 Gm IH BID Albuterol Sulfate Hfa Inhaler (Albuterol Sulfate) 8.5 Gm Hfa.aer.ad 8.5 Gm IH PRN Duoneb 0.5 Mg-3 Mg/3 Ml Soln (Ipratropium/Albuterol Sulfate) 3 Ml Ampul.neb 3 Ml IH QID Aspir 81 (Aspirin) 81 Mg Tablet. 81 Mg PO DAILY Vitals/I & O Vital Sign - Last 24 Hours 03/29/17 03/29/17 03/29/17 03/29/17 15:00 15:27 19:57 20:04 Temp 98.3 98.3 98.3 98.3 Pulse 87 96 Resp 18 18 B/P (MAP) 117/82 (94) 128/84 (99) Pulse Ox 96 92 O2 Delivery Nasal Cannula Nasal Cannula Nasal Cannula Nasal Cannula O2 Flow Rate 3.0 3.0 3.0 3.0 03/29/17 03/29/17 03/29/17 03/30/17 20:15 20:18 22:50 03:34 Temp 97.8 98.0 97.8 98.0 Pulse 77 74 Resp 20 22 B/P (MAP) 141/87 (105) 138/81 (100) Pulse Ox 94 94 96 O2 Delivery Nasal Cannula Nasal Cannula Nasal Cannula Nasal Cannula O2 Flow Rate 3.0 3.0 3.0 3.0 03/30/17 03/30/17 03/30/17 03/30/17 06:57 07:00 08:00 10:54 Temp 98.2 98.2 Pulse 77 Resp 19 B/P (MAP) 131/74 (93) Pulse Ox 97 95 O2 Delivery Nasal Cannula Nasal Cannula Nasal Cannula Nasal Cannula O2 Flow Rate 4.0 3.0 3.0 3.0 Intake and Output 03/30/17 03/30/17 03/31/17 15:00 23:00 07:00 Intake Total 250 ml Balance 250 ml LAVELLE AMBROSIO K III DO Mar 30, 2017 12:44
[2017-03-30 15:00] VITALS: BP 132/68
--- NOTE | 2017-03-30 17:34 | PDOC ---
PULMONARY PROGRESS NOTES Subjective PT STILL SOA Vitals Vital Signs Date Time Temp Pulse Resp B/P (MAP) Pulse Ox O2 Delivery O2 Flow Rate FiO2 03/30/17 15:32 Nasal Cannula 3.0 03/30/17 15:00 98.1 76 20 132/68 (89) 96 98.1 ROS: No Nausea, No Chest Pain, No Abdominal Pain HEENT: Other Lungs: Wheezing, Crackles Cardiovascular: S1, S2 Abdomen: Soft, Non-tender, Other Neuro Exam: Alert Extremities: Other (edema) Skin: Warm Labs Laboratory Tests Test 03/29/17 03:17 03/30/17 04:20 White Blood Count 11.0 x10^3/uL (4.0-11.0) 11.4 x10^3/uL (4.0-11.0) Red Blood Count 4.06 x10^6/uL (3.50-5.40) 4.12 x10^6/uL (3.50-5.40) Hemoglobin 12.0 g/dL (12.0-15.5) 11.9 g/dL (12.0-15.5) Hematocrit 36.2 % (36.0-47.0) 37.1 % (36.0-47.0) Mean Corpuscular Volume 89 fL (79-100) 90 fL (79-100) Mean Corpuscular Hemoglobin 30 pg (25-35) 29 pg (25-35) Mean Corpuscular Hemoglobin Concent 33 g/dL (31-37) 32 g/dL (31-37) Red Cell Distribution Width 14.4 % (11.5-14.5) 14.5 % (11.5-14.5) Platelet Count 230 x10^3/uL (140-400) 250 x10^3/uL (140-400) Neutrophils (%) (Auto) 88 % (31-73) 90 % (31-73) Lymphocytes (%) (Auto) 8 % (24-48) 8 % (24-48) Monocytes (%) (Auto) 4 % (0-9) 2 % (0-9) Eosinophils (%) (Auto) 0 % (0-3) 0 % (0-3) Basophils (%) (Auto) 0 % (0-3) 0 % (0-3) Neutrophils # (Auto) 9.7 x10^3uL (1.8-7.7) 10.3 x10^3uL (1.8-7.7) Lymphocytes # (Auto) 0.9 x10^3/uL (1.0-4.8) 0.9 x10^3/uL (1.0-4.8) Monocytes # (Auto) 0.4 x10^3/uL (0.0-1.1) 0.3 x10^3/uL (0.0-1.1) Eosinophils # (Auto) 0.0 x10^3/uL (0.0-0.7) 0.0 x10^3/uL (0.0-0.7) Basophils # (Auto) 0.0 x10^3/uL (0.0-0.2) 0.0 x10^3/uL (0.0-0.2) Segmented Neutrophils % 87 % (35-66) Band Neutrophils % 4 % (0-9) Lymphocytes % 9 % (24-48) Platelet Estimate Adequate (ADEQUATE) Sodium Level 144 mmol/L (136-145) 145 mmol/L (136-145) Potassium Level 4.5 mmol/L (3.5-5.1) 4.7 mmol/L (3.5-5.1) Chloride Level 105 mmol/L (98-107) 106 mmol/L (98-107) Carbon Dioxide Level 36 mmol/L (21-32) 37 mmol/L (21-32) Anion Gap 3 (6-14) 2 (6-14) Blood Urea Nitrogen 18 mg/dL (7-20) 17 mg/dL (7-20) Creatinine 0.8 mg/dL (0.6-1.0) 0.9 mg/dL (0.6-1.0) Estimated GFR (Cockcroft-Gault) 89.1 77.8 Glucose Level 143 mg/dL (70-99) 150 mg/dL (70-99) Calcium Level 8.9 mg/dL (8.5-10.1) 8.9 mg/dL (8.5-10.1) Laboratory Tests Test 03/30/17 04:20 White Blood Count 11.4 x10^3/uL (4.0-11.0) Red Blood Count 4.12 x10^6/uL (3.50-5.40) Hemoglobin 11.9 g/dL (12.0-15.5) Hematocrit 37.1 % (36.0-47.0) Mean Corpuscular Volume 90 fL (79-100) Mean Corpuscular Hemoglobin 29 pg (25-35) Mean Corpuscular Hemoglobin Concent 32 g/dL (31-37) Red Cell Distribution Width 14.5 % (11.5-14.5) Platelet Count 250 x10^3/uL (140-400) Neutrophils (%) (Auto) 90 % (31-73) Lymphocytes (%) (Auto) 8 % (24-48) Monocytes (%) (Auto) 2 % (0-9) Eosinophils (%) (Auto) 0 % (0-3) Basophils (%) (Auto) 0 % (0-3) Neutrophils # (Auto) 10.3 x10^3uL (1.8-7.7) Lymphocytes # (Auto) 0.9 x10^3/uL (1.0-4.8) Monocytes # (Auto) 0.3 x10^3/uL (0.0-1.1) Eosinophils # (Auto) 0.0 x10^3/uL (0.0-0.7) Basophils # (Auto) 0.0 x10^3/uL (0.0-0.2) Sodium Level 145 mmol/L (136-145) Potassium Level 4.7 mmol/L (3.5-5.1) Chloride Level 106 mmol/L (98-107) Carbon Dioxide Level 37 mmol/L (21-32) Anion Gap 2 (6-14) Blood Urea Nitrogen 17 mg/dL (7-20) Creatinine 0.9 mg/dL (0.6-1.0) Estimated GFR (Cockcroft-Gault) 77.8 Glucose Level 150 mg/dL (70-99) Calcium Level 8.9 mg/dL (8.5-10.1) Medications Active Scripts Medications Dose Route/Sig Max Daily Dose Days Date Category Dose Instructions Prednisone 10 Mg Tablet 10 Mg PO DAILY 01/01/17 Rx 4 by mouth daily for 3 days then 3 by mouth daily for 3 days then 2 by mouth daily for 3 days then 1 by mouth daily for 3 days Potassium Chloride 10 Meq Capsule.er 1 Cap PO DAILY 04/26/15 Rx Fluticasone Propionate Nasal [place] (Fluticasone Propionate) 1 [place] 2 [place] NS DAILY 04/26/15 Rx Zoloft (Sertraline Hcl) 50 Mg Tablet 50 Mg PO DAILY 04/26/15 Rx Albuterol Sulfate Neb Soln (Albuterol Sulfate) 2.5 Mg/3 Ml Vial.neb 2.5 Mg NEB Q4HRS PRN 04/18/15 Reported Nexium Capsule (Esomeprazole Magnesium) 40 Mg Capsule.dr 40 Mg PO DAILYAC 04/18/15 Reported Singulair Tablet (Montelukast Sodium) 10 Mg Tablet 1 Tab PO DAILY 04/27/14 Reported Lasix (Furosemide) 20 Mg Tablet 1 Tab PO DAILY 04/27/14 Reported Symbicort 160-4.5 Mcg Inhaler (Budesonide/Formoterol Fumarate) 10.2 Gm Hfa.aer.ad 10.2 Gm IH BID 07/28/13 Reported Albuterol Sulfate Hfa Inhaler (Albuterol Sulfate) 8.5 Gm Hfa.aer.ad 8.5 Gm IH PRN 07/28/13 Reported Duoneb 0.5 Mg-3 Mg/3 Ml Soln (Ipratropium/Albuterol Sulfate) 3 Ml Ampul.neb 3 Ml IH QID 07/28/13 Reported Aspir 81 (Aspirin) 81 Mg Tablet.dr 81 Mg PO DAILY 07/28/13 Reported Impression . 1. Acute on chronic respiratory failure, patient failed outpatient treatment for acute exacerbation of chronic obstructive pulmonary disease. 2. Acute exacerbation of chronic obstructive pulmonary disease. 3. Acute on chronic cor pulmonale. 4. Tobacco dependence in remission. 5. Acute nonspecific bronchitis. Plan . CONTINUE THE SAME hopefully home in am 1. Recommend current medical management. 2. Diurese. 3. Discharge home with Lasix. 4. Continue oxygen supplementation. 5. Continue antibiotics. GLENIS SCHWARTZ MD Mar 30, 2017 17:34
[2017-03-30 19:37] VITALS: BP 128/71
[2017-03-30 23:16] VITALS: BP 128/79
[2017-03-31] MEDS: PROMETH/CODEINE 6.25/10MG 5 ML SYRUP. PO PRN ×2 (01:26→20:38)
[2017-03-31] MEDS: ALBUTEROL SULFATE 2.5 MG/3 ML NEBU. NEB PRN (01:34)
[2017-03-31] MEDS: IBUPROFEN 600 MG TABLET. PO PRN (01:57)
[2017-03-31 03:55] VITALS: BP 125/73
[2017-03-31 05:52] LABS: BASO % 0 % (0-3); EOS % 0 % (0-3); HEMATOCRIT 36.6 % (36.0-47.0); HEMOGLOBIN 12.1 g/dL (12.0-15.5); LYMPH # 0.8 x10^3/uL (1.0-4.8); LYMPH % 9 % (24-48); MEAN CORPUSCULAR HEMOGLOBIN 29 pg (25-35); MEAN CORPUSCULAR HGB CONC 33 g/dL (31-37); MEAN CORPUSCULAR VOLUME 89 fL (79-100); MONO % 4 % (0-9); NEUT % 87 % (31-73); PLATELET COUNT 245 x10^3/uL (140-400); RED BLOOD COUNT 4.11 x10^6/uL (3.50-5.40); WHITE BLOOD COUNT 8.9 x10^3/uL (4.0-11.0)
[2017-03-31 06:04] LABS: CALCIUM 8.5 mg/dL (8.5-10.1); CREATININE 0.9 mg/dL (0.6-1.0); GFR 77.8; POTASSIUM 4.4 mmol/L (3.5-5.1)
[2017-03-31] MEDS: methylPREDNISolone SOD SUCC PF 40 MG/ML VIAL. IV SCH (06:07)
[2017-03-31 07:00] VITALS: BP 134/68
[2017-03-31] MEDS: IPRATRPIUM/ALBUTEROL 0.5/2.5MG 3 ML NEBU. IH SCH ×4 (07:39→19:39)
[2017-03-31] MEDS: BUDESONIDE 0.5 MG/2 ML NEBU. NEB SCH ×2 (07:39→19:39)
[2017-03-31] MEDS: MONTELUKAST SODIUM 10 MG TABLET. PO SCH (08:06)
[2017-03-31] MEDS: POTASSIUM CHLORIDE 10 MEQ TABLET.ER. PO SCH (08:06)
[2017-03-31] MEDS: guaiFENesin DM 600/30MG 1 TAB TAB.ER.12H PO SCH ×2 (08:06→20:38)
[2017-03-31] MEDS: SERTRALINE 50 MG TABLET. PO SCH (08:06)
[2017-03-31] MEDS: ASPIRIN ENTERIC COATED 81 MG TABLET.DR. PO SCH (08:06)
[2017-03-31] MEDS: PANTOPRAZOLE 40 MG TABLET.DR. PO SCH (08:06)
[2017-03-31] MEDS: FLUTICASONE 50MCG/NASAL SPRAY 16GM BOTTLE. NS SCH (08:07)
[2017-03-31] MEDS: FUROSEMIDE 20 MG TABLET PO SCH (08:07)
--- NOTE | 2017-03-31 10:15 | PDOC ---
PULMONARY PROGRESS NOTES Subjective PT STILL VERY SOA AND TIMES CANNOT COMPLETE FULL SENTENCES Vitals Vital Signs Date Time Temp Pulse Resp B/P (MAP) Pulse Ox O2 Delivery O2 Flow Rate FiO2 03/31/17 08:00 Nasal Cannula 3.0 03/31/17 07:41 98 03/31/17 07:00 98.4 70 20 134/68 (90) 98.4 ROS: No Nausea, No Chest Pain, No Abdominal Pain HEENT: Other Lungs: Wheezing, Crackles Cardiovascular: S1, S2 Abdomen: Soft, Non-tender, Other Neuro Exam: Alert Extremities: Other (edema) Skin: Warm Labs Laboratory Tests Test 03/30/17 04:20 03/31/17 04:40 White Blood Count 11.4 x10^3/uL (4.0-11.0) 8.9 x10^3/uL (4.0-11.0) Red Blood Count 4.12 x10^6/uL (3.50-5.40) 4.11 x10^6/uL (3.50-5.40) Hemoglobin 11.9 g/dL (12.0-15.5) 12.1 g/dL (12.0-15.5) Hematocrit 37.1 % (36.0-47.0) 36.6 % (36.0-47.0) Mean Corpuscular Volume 90 fL (79-100) 89 fL (79-100) Mean Corpuscular Hemoglobin 29 pg (25-35) 29 pg (25-35) Mean Corpuscular Hemoglobin Concent 32 g/dL (31-37) 33 g/dL (31-37) Red Cell Distribution Width 14.5 % (11.5-14.5) 14.0 % (11.5-14.5) Platelet Count 250 x10^3/uL (140-400) 245 x10^3/uL (140-400) Neutrophils (%) (Auto) 90 % (31-73) 87 % (31-73) Lymphocytes (%) (Auto) 8 % (24-48) 9 % (24-48) Monocytes (%) (Auto) 2 % (0-9) 4 % (0-9) Eosinophils (%) (Auto) 0 % (0-3) 0 % (0-3) Basophils (%) (Auto) 0 % (0-3) 0 % (0-3) Neutrophils # (Auto) 10.3 x10^3uL (1.8-7.7) 7.8 x10^3uL (1.8-7.7) Lymphocytes # (Auto) 0.9 x10^3/uL (1.0-4.8) 0.8 x10^3/uL (1.0-4.8) Monocytes # (Auto) 0.3 x10^3/uL (0.0-1.1) 0.3 x10^3/uL (0.0-1.1) Eosinophils # (Auto) 0.0 x10^3/uL (0.0-0.7) 0.0 x10^3/uL (0.0-0.7) Basophils # (Auto) 0.0 x10^3/uL (0.0-0.2) 0.0 x10^3/uL (0.0-0.2) Sodium Level 145 mmol/L (136-145) 144 mmol/L (136-145) Potassium Level 4.7 mmol/L (3.5-5.1) 4.4 mmol/L (3.5-5.1) Chloride Level 106 mmol/L (98-107) 105 mmol/L (98-107) Carbon Dioxide Level 37 mmol/L (21-32) 37 mmol/L (21-32) Anion Gap 2 (6-14) 2 (6-14) Blood Urea Nitrogen 17 mg/dL (7-20) 17 mg/dL (7-20) Creatinine 0.9 mg/dL (0.6-1.0) 0.9 mg/dL (0.6-1.0) Estimated GFR (Cockcroft-Gault) 77.8 77.8 Glucose Level 150 mg/dL (70-99) 135 mg/dL (70-99) Calcium Level 8.9 mg/dL (8.5-10.1) 8.5 mg/dL (8.5-10.1) Laboratory Tests Test 03/31/17 04:40 White Blood Count 8.9 x10^3/uL (4.0-11.0) Red Blood Count 4.11 x10^6/uL (3.50-5.40) Hemoglobin 12.1 g/dL (12.0-15.5) Hematocrit 36.6 % (36.0-47.0) Mean Corpuscular Volume 89 fL (79-100) Mean Corpuscular Hemoglobin 29 pg (25-35) Mean Corpuscular Hemoglobin Concent 33 g/dL (31-37) Red Cell Distribution Width 14.0 % (11.5-14.5) Platelet Count 245 x10^3/uL (140-400) Neutrophils (%) (Auto) 87 % (31-73) Lymphocytes (%) (Auto) 9 % (24-48) Monocytes (%) (Auto) 4 % (0-9) Eosinophils (%) (Auto) 0 % (0-3) Basophils (%) (Auto) 0 % (0-3) Neutrophils # (Auto) 7.8 x10^3uL (1.8-7.7) Lymphocytes # (Auto) 0.8 x10^3/uL (1.0-4.8) Monocytes # (Auto) 0.3 x10^3/uL (0.0-1.1) Eosinophils # (Auto) 0.0 x10^3/uL (0.0-0.7) Basophils # (Auto) 0.0 x10^3/uL (0.0-0.2) Sodium Level 144 mmol/L (136-145) Potassium Level 4.4 mmol/L (3.5-5.1) Chloride Level 105 mmol/L (98-107) Carbon Dioxide Level 37 mmol/L (21-32) Anion Gap 2 (6-14) Blood Urea Nitrogen 17 mg/dL (7-20) Creatinine 0.9 mg/dL (0.6-1.0) Estimated GFR (Cockcroft-Gault) 77.8 Glucose Level 135 mg/dL (70-99) Calcium Level 8.5 mg/dL (8.5-10.1) Medications Active Scripts Medications Dose Route/Sig Max Daily Dose Days Date Category Dose Instructions Prednisone 10 Mg Tablet 10 Mg PO DAILY 01/01/17 Rx 4 by mouth daily for 3 days then 3 by mouth daily for 3 days then 2 by mouth daily for 3 days then 1 by mouth daily for 3 days Potassium Chloride 10 Meq Capsule.er 1 Cap PO DAILY 04/26/15 Rx Fluticasone Propionate Nasal [place] (Fluticasone Propionate) 1 [place] 2 [place] NS DAILY 04/26/15 Rx Zoloft (Sertraline Hcl) 50 Mg Tablet 50 Mg PO DAILY 04/26/15 Rx Albuterol Sulfate Neb Soln (Albuterol Sulfate) 2.5 Mg/3 Ml Vial.neb 2.5 Mg NEB Q4HRS PRN 04/18/15 Reported Nexium Capsule (Esomeprazole Magnesium) 40 Mg Capsule.dr 40 Mg PO DAILYAC 04/18/15 Reported Singulair Tablet (Montelukast Sodium) 10 Mg Tablet 1 Tab PO DAILY 04/27/14 Reported Lasix (Furosemide) 20 Mg Tablet 1 Tab PO DAILY 04/27/14 Reported Symbicort 160-4.5 Mcg Inhaler (Budesonide/Formoterol Fumarate) 10.2 Gm Hfa.aer.ad 10.2 Gm IH BID 07/28/13 Reported Albuterol Sulfate Hfa Inhaler (Albuterol Sulfate) 8.5 Gm Hfa.aer.ad 8.5 Gm IH PRN 07/28/13 Reported Duoneb 0.5 Mg-3 Mg/3 Ml Soln (Ipratropium/Albuterol Sulfate) 3 Ml Ampul.neb 3 Ml IH QID 07/28/13 Reported Aspir 81 (Aspirin) 81 Mg Tablet.dr 81 Mg PO DAILY 07/28/13 Reported Impression . 1. Acute on chronic respiratory failure, patient failed outpatient treatment for acute exacerbation of chronic obstructive pulmonary disease. 2. Acute exacerbation of chronic obstructive pulmonary disease. 3. Acute on chronic cor pulmonale. 4. Tobacco dependence in remission. 5. Acute nonspecific bronchitis. Plan . PT VERY SOA CANNOT COMPLETE FULL SENTENCE WILL ADD DALIRESP ORAL LEVAQUIN IF BETTER D/C IN AM 02 GLENIS SCHWARTZ MD Mar 31, 2017 10:15
[2017-03-31] MEDS ORDERED: predniSONE 10 MG TABLET PO ONE (10:30)
[2017-03-31 10:56] VITALS: BP 147/82
[2017-03-31] MEDS: ROFLUMILAST 500 MCG TABLET. PO SCH (11:30)
--- NOTE | 2017-03-31 12:55 | PDOC ---
PROGRESS NOTES Chief Complaint Chief Complaint Acute on chronic respiratory failure Cor pulmonale w/ RHF SOB cough COPD exacerbation Hemoptysis PMHx: COPD, previous tobacco abuse, hysterectomy, tonsillectomy, cardiac catheterization, exploratory surgery. History of Present Illness History of Present Illness Pt seen in her room in the cardiovascular care unit. Pt continues to wheeze with productive cough but less than before.She appears to be looking better. She had no complains today. Pulm and cardio are following. If the patient is stable and the specialists agree, she might be going home tomorrow. For now continue to monitor on medical floor. Vitals Vitals Vital Signs Date Time Temp Pulse Resp B/P (MAP) Pulse Ox O2 Delivery O2 Flow Rate FiO2 03/31/17 11:33 Nasal Cannula 2.0 03/31/17 10:56 98.1 84 20 147/82 (103) 96 98.1 Physical Exam General: Alert, Oriented X3, Cooperative Heart: Regular rate, Normal S1, Normal S2 Lungs: Wheezing, Crackles Abdomen: Normal bowel sounds, Soft Extremities: No clubbing, No cyanosis, No edema Skin: No rashes, No significant lesion Labs LABS Laboratory Tests Test 03/31/17 04:40 White Blood Count 8.9 x10^3/uL (4.0-11.0) Red Blood Count 4.11 x10^6/uL (3.50-5.40) Hemoglobin 12.1 g/dL (12.0-15.5) Hematocrit 36.6 % (36.0-47.0) Mean Corpuscular Volume 89 fL (79-100) Mean Corpuscular Hemoglobin 29 pg (25-35) Mean Corpuscular Hemoglobin Concent 33 g/dL (31-37) Red Cell Distribution Width 14.0 % (11.5-14.5) Platelet Count 245 x10^3/uL (140-400) Neutrophils (%) (Auto) 87 % (31-73) Lymphocytes (%) (Auto) 9 % (24-48) Monocytes (%) (Auto) 4 % (0-9) Eosinophils (%) (Auto) 0 % (0-3) Basophils (%) (Auto) 0 % (0-3) Neutrophils # (Auto) 7.8 x10^3uL (1.8-7.7) Lymphocytes # (Auto) 0.8 x10^3/uL (1.0-4.8) Monocytes # (Auto) 0.3 x10^3/uL (0.0-1.1) Eosinophils # (Auto) 0.0 x10^3/uL (0.0-0.7) Basophils # (Auto) 0.0 x10^3/uL (0.0-0.2) Sodium Level 144 mmol/L (136-145) Potassium Level 4.4 mmol/L (3.5-5.1) Chloride Level 105 mmol/L (98-107) Carbon Dioxide Level 37 mmol/L (21-32) Anion Gap 2 (6-14) Blood Urea Nitrogen 17 mg/dL (7-20) Creatinine 0.9 mg/dL (0.6-1.0) Estimated GFR (Cockcroft-Gault) 77.8 Glucose Level 135 mg/dL (70-99) Calcium Level 8.5 mg/dL (8.5-10.1) Review of Systems Review of Systems fatigue and weakness Assessment and Plan Assessmemt and Plan Assessment: Acute on chronic respiratory failure Cor pulmonale w/ RHF SOB cough COPD exacerbation Hemoptysis Previous tobacco abuse, Plan: Continue breathing treatment Continue current medication. Possible discharge is stable and specialists agree Problems: Comment Review of Relevant I have reviewed the following items paulette (where applicable) has been applied. Labs Laboratory Tests Test 03/30/17 04:20 03/31/17 04:40 White Blood Count 11.4 x10^3/uL (4.0-11.0) 8.9 x10^3/uL (4.0-11.0) Red Blood Count 4.12 x10^6/uL (3.50-5.40) 4.11 x10^6/uL (3.50-5.40) Hemoglobin 11.9 g/dL (12.0-15.5) 12.1 g/dL (12.0-15.5) Hematocrit 37.1 % (36.0-47.0) 36.6 % (36.0-47.0) Mean Corpuscular Volume 90 fL (79-100) 89 fL (79-100) Mean Corpuscular Hemoglobin 29 pg (25-35) 29 pg (25-35) Mean Corpuscular Hemoglobin Concent 32 g/dL (31-37) 33 g/dL (31-37) Red Cell Distribution Width 14.5 % (11.5-14.5) 14.0 % (11.5-14.5) Platelet Count 250 x10^3/uL (140-400) 245 x10^3/uL (140-400) Neutrophils (%) (Auto) 90 % (31-73) 87 % (31-73) Lymphocytes (%) (Auto) 8 % (24-48) 9 % (24-48) Monocytes (%) (Auto) 2 % (0-9) 4 % (0-9) Eosinophils (%) (Auto) 0 % (0-3) 0 % (0-3) Basophils (%) (Auto) 0 % (0-3) 0 % (0-3) Neutrophils # (Auto) 10.3 x10^3uL (1.8-7.7) 7.8 x10^3uL (1.8-7.7) Lymphocytes # (Auto) 0.9 x10^3/uL (1.0-4.8) 0.8 x10^3/uL (1.0-4.8) Monocytes # (Auto) 0.3 x10^3/uL (0.0-1.1) 0.3 x10^3/uL (0.0-1.1) Eosinophils # (Auto) 0.0 x10^3/uL (0.0-0.7) 0.0 x10^3/uL (0.0-0.7) Basophils # (Auto) 0.0 x10^3/uL (0.0-0.2) 0.0 x10^3/uL (0.0-0.2) Sodium Level 145 mmol/L (136-145) 144 mmol/L (136-145) Potassium Level 4.7 mmol/L (3.5-5.1) 4.4 mmol/L (3.5-5.1) Chloride Level 106 mmol/L (98-107) 105 mmol/L (98-107) Carbon Dioxide Level 37 mmol/L (21-32) 37 mmol/L (21-32) Anion Gap 2 (6-14) 2 (6-14) Blood Urea Nitrogen 17 mg/dL (7-20) 17 mg/dL (7-20) Creatinine 0.9 mg/dL (0.6-1.0) 0.9 mg/dL (0.6-1.0) Estimated GFR (Cockcroft-Gault) 77.8 77.8 Glucose Level 150 mg/dL (70-99) 135 mg/dL (70-99) Calcium Level 8.9 mg/dL (8.5-10.1) 8.5 mg/dL (8.5-10.1) Laboratory Tests Test 03/31/17 04:40 White Blood Count 8.9 x10^3/uL (4.0-11.0) Red Blood Count 4.11 x10^6/uL (3.50-5.40) Hemoglobin 12.1 g/dL (12.0-15.5) Hematocrit 36.6 % (36.0-47.0) Mean Corpuscular Volume 89 fL (79-100) Mean Corpuscular Hemoglobin 29 pg (25-35) Mean Corpuscular Hemoglobin Concent 33 g/dL (31-37) Red Cell Distribution Width 14.0 % (11.5-14.5) Platelet Count 245 x10^3/uL (140-400) Neutrophils (%) (Auto) 87 % (31-73) Lymphocytes (%) (Auto) 9 % (24-48) Monocytes (%) (Auto) 4 % (0-9) Eosinophils (%) (Auto) 0 % (0-3) Basophils (%) (Auto) 0 % (0-3) Neutrophils # (Auto) 7.8 x10^3uL (1.8-7.7) Lymphocytes # (Auto) 0.8 x10^3/uL (1.0-4.8) Monocytes # (Auto) 0.3 x10^3/uL (0.0-1.1) Eosinophils # (Auto) 0.0 x10^3/uL (0.0-0.7) Basophils # (Auto) 0.0 x10^3/uL (0.0-0.2) Sodium Level 144 mmol/L (136-145) Potassium Level 4.4 mmol/L (3.5-5.1) Chloride Level 105 mmol/L (98-107) Carbon Dioxide Level 37 mmol/L (21-32) Anion Gap 2 (6-14) Blood Urea Nitrogen 17 mg/dL (7-20) Creatinine 0.9 mg/dL (0.6-1.0) Estimated GFR (Cockcroft-Gault) 77.8 Glucose Level 135 mg/dL (70-99) Calcium Level 8.5 mg/dL (8.5-10.1) Medications Current Medications Albuterol/ Ipratropium (Duoneb) 3 ml 1X ONCE NEB Last administered on 16:16; Start 03/27/17 at 16:15; Stop 03/27/17 at 16:16; Status DC Methylprednisolone Sodium Succinate (SOLU-Medrol 125MG VIAL) 125 mg 1X ONCE IV Last administered on 03/27/17 16:25; Start 03/27/17 at 16:15; Stop at 16:16; Status DC Azithromycin 250 ml @ 250 mls/hr 1X ONCE IV Last administered on 03/27/17 16:32; Start 03/27/17 at 16:15; Stop 03/27/17 at 17:14; Status DC Ceftriaxone Sodium 50 ml @ 100 mls/hr 1X ONCE IV Last administered on 20:34; Start 03/27/17 at 17:45; Stop 03/27/17 at 18:14; Status DC Magnesium Sulfate/ Dextrose 50 ml @ 25 mls/hr 1X ONCE IV Last administered on 03/27/17 17:31; Start 03/27/17 at 18:00; Stop 03/27/17 at 19:59; Status DC Albuterol/ Ipratropium (Duoneb) 3 ml 1X ONCE NEB ; Start 03/27/17 at 18:00; Stop 03/27/17 at 18:01; Status DC Ondansetron HCl (Zofran) 4 mg PRN Q8HRS PRN IV NAUSEA/VOMITING; Start at 17:30; Stop 03/28/17 at 17:29; Status DC Albuterol/ Ipratropium (Duoneb) 3 ml RTQID NEB ; Start 03/27/17 at 20:00; Stop 03/27/17 at 20:00; Status DC Methylprednisolone Sodium Succinate (SOLU-Medrol 40MG VIAL) 40 mg Q8HRS IV ; Start 03/27/17 at 22:00; Stop 03/27/17 at 22:00; Status DC Albuterol/ Ipratropium (Duoneb) 3 ml Q4HRS NEB ; Start 03/27/17 at 20:00; Stop 03/27/17 at 20:06; Status DC Methylprednisolone Sodium Succinate (SOLU-Medrol 40MG VIAL) 40 mg Q8HRS IV Last administered on 03/31/17 06:07; Start 03/27/17 at 22:00; Stop 03/31/17 at 10:12; Status DC Budesonide (Pulmicort) 0.5 mg RTBID NEB ; Start 03/27/17 at 20:00; Stop at 20:06; Status DC Oxymetazoline HCl (Afrin) 2 spray PRN BID PRN NS NASAL STUFFINESS; Start 03/27 at 19:15 Oxymetazoline HCl (Afrin) 2 spray 1X ONCE NS Last administered on 03/27/17 20:33; Start 03/27/17 at 19:30; Stop 03/27/17 at 19:31; Status DC Albuterol Sulfate (Ventolin Hfa) 1 puff QID IH ; Start 03/27/17 at 21:00; Stop 03/27/17 at 21:00; Status DC Albuterol Sulfate (Ventolin Neb Soln) 2.5 mg PRN Q4HRS PRN NEB SHORTNESS OF BREATH Last administered on 03/31/17 01:34; Start 03/27/17 at 19:45 Aspirin (Ecotrin) 81 mg DAILY PO Last administered on 03/31/17 08:06; Start 03/28/17 at 09:00 Fluticasone Propionate (Flonase) 2 spray DAILY NS Last administered on 08:07; Start 03/28/17 at 09:00 Furosemide (Lasix) 20 mg DAILY PO Last administered on 03/31/17 08:07; Start 03/28/17 at 09:00 Albuterol/ Ipratropium (Duoneb) 3 ml RTQID IH Last administered on 03/31/17 11:32; Start 03/27/17 at 21:00 Montelukast Sodium (Singulair) 10 mg DAILY PO Last administered on 03/31/17 08:06; Start 03/28/17 at 09:00 Prednisone (Prednisone) 10 mg DAILY PO Last administered on 03/28/17 09:23; Start 03/28/17 at 09:00; Stop 03/28/17 at 10:43; Status DC Sertraline HCl (Zoloft) 50 mg DAILY PO Last administered on 03/31/17 08:06; Start 03/28/17 at 09:00 Non-Formulary Medication 10.2 gm BID IH ; Start 03/27/17 at 21:00; Stop at 21:00; Status DC Pantoprazole Sodium (Protonix) 40 mg DAILYAC PO Last administered on 08:06; Start 03/28/17 at 07:30 Potassium Chloride (Klor-Con) 10 meq DAILYWBKFT PO Last administered on 08:06; Start 03/28/17 at 08:00 Budesonide (Pulmicort) 0.5 mg RTBID NEB Last administered on 03/31/17 07:39; Start 03/27/17 at 21:00 Promethazine HCl/ Codeine (Phenergan With Codeine) 5 ml PRN Q4HRS PRN PO COUGH Last administered on 03/31/17 01:26; Start 03/27/17 at 22:30 Acetaminophen/ Hydrocodone Bitart (Lortab 5/325) 1 tab PRN Q4HRS PRN PO MODERATE PAIN; Start 03/28/17 at 03:30; Stop 03/28/17 at 03:50; Status DC Ibuprofen (Motrin) 600 mg PRN Q6HRS PRN PO INFLAMMATION Last administered on 01:57; Start 03/28/17 at 04:45 Furosemide (Lasix) 40 mg 1X ONCE IVP Last administered on 03/28/17 16:38; Start 03/28/17 at 14:30; Stop 03/28/17 at 14:31; Status DC Levofloxacin/ Dextrose 100 ml @ 100 mls/hr Q24H IV Last administered on 14:48; Start 03/29/17 at 13:00; Stop 03/31/17 at 10:12; Status DC Guaifenesin (MUCINEX ER with DM) 1 tab BID PO Last administered on 03/31/17 08:06; Start 03/29/17 at 13:00 Prednisone (Prednisone) 30 mg 1X ONCE PO Last administered on 03/31/17 11:30 ; Start 03/31/17 at 10:30; Stop 03/31/17 at 10:31; Status DC Roflumilast (Daliresp) 500 mcg DAILY PO Last administered on 03/31/17 11:30; Start 03/31/17 at 10:30 Levofloxacin/ Dextrose 100 ml @ 100 mls/hr Q24H IV Last administered on 12:20; Start 03/31/17 at 11:00 Active Scripts Active Prednisone 10 Mg Tablet 10 Mg PO DAILY 4 by mouth daily for 3 days then 3 by mouth daily for 3 days then 2 by mouth daily for 3 days then 1 by mouth daily for 3 days Potassium Chloride 10 Meq Capsule.er 1 Cap PO DAILY Fluticasone Propionate Nasal [place] (Fluticasone Propionate) 1 [place] 2 [place] NS DAILY Zoloft (Sertraline Hcl) 50 Mg Tablet 50 Mg PO DAILY Reported Albuterol Sulfate Neb Soln (Albuterol Sulfate) 2.5 Mg/3 Ml Vial.neb 2.5 Mg NEB Q4HRS PRN Nexium Capsule (Esomeprazole Magnesium) 40 Mg Capsule. 40 Mg PO DAILYAC Singulair Tablet (Montelukast Sodium) 10 Mg Tablet 1 Tab PO DAILY Lasix (Furosemide) 20 Mg Tablet 1 Tab PO DAILY Symbicort 160-4.5 Mcg Inhaler (Budesonide/Formoterol Fumarate) 10.2 Gm Hfa.aer.ad 10.2 Gm IH BID Albuterol Sulfate Hfa Inhaler (Albuterol Sulfate) 8.5 Gm Hfa.aer.ad 8.5 Gm IH PRN Duoneb 0.5 Mg-3 Mg/3 Ml Soln (Ipratropium/Albuterol Sulfate) 3 Ml Ampul.neb 3 Ml IH QID Aspir 81 (Aspirin) 81 Mg Tablet. 81 Mg PO DAILY Vitals/I & O Vital Sign - Last 24 Hours 03/30/17 03/30/17 03/30/17 03/30/17 15:00 15:32 19:14 19:19 Temp 98.1 98.1 Pulse 76 Resp 20 B/P (MAP) 132/68 (89) Pulse Ox 96 96 96 O2 Delivery Nasal Cannula Nasal Cannula Nasal Cannula Nasal Cannula O2 Flow Rate 3.0 3.0 3.0 3.0 03/30/17 03/30/17 03/30/17 03/31/17 19:37 20:00 23:16 01:34 Temp 98.1 98.0 98.1 98.0 Pulse 85 77 Resp 20 20 B/P (MAP) 128/71 (90) 128/79 (95) Pulse Ox 95 96 O2 Delivery Nasal Cannula Nasal Cannula Nasal Cannula Nasal Cannula O2 Flow Rate 3.0 3.0 3.0 3.0 03/31/17 03/31/17 03/31/17 03/31/17 03:55 07:00 07:41 08:00 Temp 98.2 98.4 98.2 98.4 Pulse 82 70 Resp 20 20 B/P (MAP) 125/73 (90) 134/68 (90) Pulse Ox 94 97 98 O2 Delivery Nasal Cannula Nasal Cannula Nasal Cannula Nasal Cannula O2 Flow Rate 3.0 3.0 3.0 3.0 03/31/17 03/31/17 10:56 11:33 Temp 98.1 98.1 Pulse 84 Resp 20 B/P (MAP) 147/82 (103) Pulse Ox 96 O2 Delivery Nasal Cannula Nasal Cannula O2 Flow Rate 3.0 2.0 Intake and Output 03/31/17 03/31/17 04/01/17 15:00 23:00 07:00 Intake Total 250 ml Balance 250 ml LAVELLE AMBROSIO III DO Mar 31, 2017 12:55
--- NOTE | 2017-03-31 14:12 | PDOC ---
PROGRESS NOTES Subjective Subjective Ms. Stevens was once again pleasant for the duration of the visit. She still complained of COPD exacerbation, dyspnea, increased work of breathing. She however denied chest pain, palpitations, or loss of consciousness. Objective Objective Vital Signs Date Time Temp Pulse Resp B/P (MAP) Pulse Ox O2 Delivery O2 Flow Rate FiO2 03/31/17 11:33 Nasal Cannula 2.0 03/31/17 10:56 98.1 84 20 147/82 (103) 96 98.1 Intake and Output 04/01/17 07:00 Intake Total 500 ml Balance 500 ml Intake Oral 500 ml Physical Exam Abdomen: Normal bowel sounds, No tenderness, No hepatosplenomegaly Heart: Normal S1, Normal S2 Extremities: Other (edema) General: Alert, Oriented X3, Cooperative HEENT: Atraumatic, PERRLA, EOMI Lungs: Other (wheezing, crackles) Skin: Other (warm) Assessment Assessment Assessment and Plan: This patient comes in with acute respiratory distress secondary to a COPD exacerbation. She has cor pulmonale and right heart failure due to that. EKG showed sinus tachycardia, atrial premature complexes, and an abnormal left axis deviation. There was also a QRS contour abnormality. The Echocardiogram shows an LV EF of 65%, diastolic dysfunction and unable to estimate the PA pressure. Would continue with IV Lasix. Thank you very much for asking me to participate in the care of this patient. Comment Review of Relevant I have reviewed the following items paulette (where applicable) has been applied. Labs Laboratory Tests Test 03/30/17 04:20 03/31/17 04:40 White Blood Count 11.4 x10^3/uL (4.0-11.0) 8.9 x10^3/uL (4.0-11.0) Red Blood Count 4.12 x10^6/uL (3.50-5.40) 4.11 x10^6/uL (3.50-5.40) Hemoglobin 11.9 g/dL (12.0-15.5) 12.1 g/dL (12.0-15.5) Hematocrit 37.1 % (36.0-47.0) 36.6 % (36.0-47.0) Mean Corpuscular Volume 90 fL (79-100) 89 fL (79-100) Mean Corpuscular Hemoglobin 29 pg (25-35) 29 pg (25-35) Mean Corpuscular Hemoglobin Concent 32 g/dL (31-37) 33 g/dL (31-37) Red Cell Distribution Width 14.5 % (11.5-14.5) 14.0 % (11.5-14.5) Platelet Count 250 x10^3/uL (140-400) 245 x10^3/uL (140-400) Neutrophils (%) (Auto) 90 % (31-73) 87 % (31-73) Lymphocytes (%) (Auto) 8 % (24-48) 9 % (24-48) Monocytes (%) (Auto) 2 % (0-9) 4 % (0-9) Eosinophils (%) (Auto) 0 % (0-3) 0 % (0-3) Basophils (%) (Auto) 0 % (0-3) 0 % (0-3) Neutrophils # (Auto) 10.3 x10^3uL (1.8-7.7) 7.8 x10^3uL (1.8-7.7) Lymphocytes # (Auto) 0.9 x10^3/uL (1.0-4.8) 0.8 x10^3/uL (1.0-4.8) Monocytes # (Auto) 0.3 x10^3/uL (0.0-1.1) 0.3 x10^3/uL (0.0-1.1) Eosinophils # (Auto) 0.0 x10^3/uL (0.0-0.7) 0.0 x10^3/uL (0.0-0.7) Basophils # (Auto) 0.0 x10^3/uL (0.0-0.2) 0.0 x10^3/uL (0.0-0.2) Sodium Level 145 mmol/L (136-145) 144 mmol/L (136-145) Potassium Level 4.7 mmol/L (3.5-5.1) 4.4 mmol/L (3.5-5.1) Chloride Level 106 mmol/L (98-107) 105 mmol/L (98-107) Carbon Dioxide Level 37 mmol/L (21-32) 37 mmol/L (21-32) Anion Gap 2 (6-14) 2 (6-14) Blood Urea Nitrogen 17 mg/dL (7-20) 17 mg/dL (7-20) Creatinine 0.9 mg/dL (0.6-1.0) 0.9 mg/dL (0.6-1.0) Estimated GFR (Cockcroft-Gault) 77.8 77.8 Glucose Level 150 mg/dL (70-99) 135 mg/dL (70-99) Calcium Level 8.9 mg/dL (8.5-10.1) 8.5 mg/dL (8.5-10.1) Laboratory Tests Test 03/31/17 04:40 White Blood Count 8.9 x10^3/uL (4.0-11.0) Red Blood Count 4.11 x10^6/uL (3.50-5.40) Hemoglobin 12.1 g/dL (12.0-15.5) Hematocrit 36.6 % (36.0-47.0) Mean Corpuscular Volume 89 fL (79-100) Mean Corpuscular Hemoglobin 29 pg (25-35) Mean Corpuscular Hemoglobin Concent 33 g/dL (31-37) Red Cell Distribution Width 14.0 % (11.5-14.5) Platelet Count 245 x10^3/uL (140-400) Neutrophils (%) (Auto) 87 % (31-73) Lymphocytes (%) (Auto) 9 % (24-48) Monocytes (%) (Auto) 4 % (0-9) Eosinophils (%) (Auto) 0 % (0-3) Basophils (%) (Auto) 0 % (0-3) Neutrophils # (Auto) 7.8 x10^3uL (1.8-7.7) Lymphocytes # (Auto) 0.8 x10^3/uL (1.0-4.8) Monocytes # (Auto) 0.3 x10^3/uL (0.0-1.1) Eosinophils # (Auto) 0.0 x10^3/uL (0.0-0.7) Basophils # (Auto) 0.0 x10^3/uL (0.0-0.2) Sodium Level 144 mmol/L (136-145) Potassium Level 4.4 mmol/L (3.5-5.1) Chloride Level 105 mmol/L (98-107) Carbon Dioxide Level 37 mmol/L (21-32) Anion Gap 2 (6-14) Blood Urea Nitrogen 17 mg/dL (7-20) Creatinine 0.9 mg/dL (0.6-1.0) Estimated GFR (Cockcroft-Gault) 77.8 Glucose Level 135 mg/dL (70-99) Calcium Level 8.5 mg/dL (8.5-10.1) Medications Current Medications Albuterol/ Ipratropium (Duoneb) 3 ml 1X ONCE NEB Last administered on 16:16; Start 03/27/17 at 16:15; Stop 03/27/17 at 16:16; Status DC Methylprednisolone Sodium Succinate (SOLU-Medrol 125MG VIAL) 125 mg 1X ONCE IV Last administered on 03/27/17 16:25; Start 03/27/17 at 16:15; Stop at 16:16; Status DC Azithromycin 250 ml @ 250 mls/hr 1X ONCE IV Last administered on 03/27/17 16:32; Start 03/27/17 at 16:15; Stop 03/27/17 at 17:14; Status DC Ceftriaxone Sodium 50 ml @ 100 mls/hr 1X ONCE IV Last administered on 20:34; Start 03/27/17 at 17:45; Stop 03/27/17 at 18:14; Status DC Magnesium Sulfate/ Dextrose 50 ml @ 25 mls/hr 1X ONCE IV Last administered on 03/27/17 17:31; Start 03/27/17 at 18:00; Stop 03/27/17 at 19:59; Status DC Albuterol/ Ipratropium (Duoneb) 3 ml 1X ONCE NEB ; Start 03/27/17 at 18:00; Stop 03/27/17 at 18:01; Status DC Ondansetron HCl (Zofran) 4 mg PRN Q8HRS PRN IV NAUSEA/VOMITING; Start at 17:30; Stop 03/28/17 at 17:29; Status DC Albuterol/ Ipratropium (Duoneb) 3 ml RTQID NEB ; Start 03/27/17 at 20:00; Stop 03/27/17 at 20:00; Status DC Methylprednisolone Sodium Succinate (SOLU-Medrol 40MG VIAL) 40 mg Q8HRS IV ; Start 03/27/17 at 22:00; Stop 03/27/17 at 22:00; Status DC Albuterol/ Ipratropium (Duoneb) 3 ml Q4HRS NEB ; Start 03/27/17 at 20:00; Stop 03/27/17 at 20:06; Status DC Methylprednisolone Sodium Succinate (SOLU-Medrol 40MG VIAL) 40 mg Q8HRS IV Last administered on 03/31/17 06:07; Start 03/27/17 at 22:00; Stop 03/31/17 at 10:12; Status DC Budesonide (Pulmicort) 0.5 mg RTBID NEB ; Start 03/27/17 at 20:00; Stop at 20:06; Status DC Oxymetazoline HCl (Afrin) 2 spray PRN BID PRN NS NASAL STUFFINESS; Start 03/27 at 19:15 Oxymetazoline HCl (Afrin) 2 spray 1X ONCE NS Last administered on 03/27/17 20:33; Start 03/27/17 at 19:30; Stop 03/27/17 at 19:31; Status DC Albuterol Sulfate (Ventolin Hfa) 1 puff QID IH ; Start 03/27/17 at 21:00; Stop 03/27/17 at 21:00; Status DC Albuterol Sulfate (Ventolin Neb Soln) 2.5 mg PRN Q4HRS PRN NEB SHORTNESS OF BREATH Last administered on 03/31/17 01:34; Start 03/27/17 at 19:45 Aspirin (Ecotrin) 81 mg DAILY PO Last administered on 03/31/17 08:06; Start 03/28/17 at 09:00 Fluticasone Propionate (Flonase) 2 spray DAILY NS Last administered on 08:07; Start 03/28/17 at 09:00 Furosemide (Lasix) 20 mg DAILY PO Last administered on 03/31/17 08:07; Start 03/28/17 at 09:00 Albuterol/ Ipratropium (Duoneb) 3 ml RTQID IH Last administered on 03/31/17 11:32; Start 03/27/17 at 21:00 Montelukast Sodium (Singulair) 10 mg DAILY PO Last administered on 03/31/17 08:06; Start 03/28/17 at 09:00 Prednisone (Prednisone) 10 mg DAILY PO Last administered on 03/28/17 09:23; Start 03/28/17 at 09:00; Stop 03/28/17 at 10:43; Status DC Sertraline HCl (Zoloft) 50 mg DAILY PO Last administered on 03/31/17 08:06; Start 03/28/17 at 09:00 Non-Formulary Medication 10.2 gm BID IH ; Start 03/27/17 at 21:00; Stop at 21:00; Status DC Pantoprazole Sodium (Protonix) 40 mg DAILYAC PO Last administered on 08:06; Start 03/28/17 at 07:30 Potassium Chloride (Klor-Con) 10 meq DAILYWBKFT PO Last administered on 08:06; Start 03/28/17 at 08:00 Budesonide (Pulmicort) 0.5 mg RTBID NEB Last administered on 03/31/17 07:39; Start 03/27/17 at 21:00 Promethazine HCl/ Codeine (Phenergan With Codeine) 5 ml PRN Q4HRS PRN PO COUGH Last administered on 03/31/17 01:26; Start 03/27/17 at 22:30 Acetaminophen/ Hydrocodone Bitart (Lortab 5/325) 1 tab PRN Q4HRS PRN PO MODERATE PAIN; Start 03/28/17 at 03:30; Stop 03/28/17 at 03:50; Status DC Ibuprofen (Motrin) 600 mg PRN Q6HRS PRN PO INFLAMMATION Last administered on 01:57; Start 03/28/17 at 04:45 Furosemide (Lasix) 40 mg 1X ONCE IVP Last administered on 03/28/17 16:38; Start 03/28/17 at 14:30; Stop 03/28/17 at 14:31; Status DC Levofloxacin/ Dextrose 100 ml @ 100 mls/hr Q24H IV Last administered on 14:48; Start 03/29/17 at 13:00; Stop 03/31/17 at 10:12; Status DC Guaifenesin (MUCINEX ER with DM) 1 tab BID PO Last administered on 03/31/17 08:06; Start 03/29/17 at 13:00 Prednisone (Prednisone) 30 mg 1X ONCE PO Last administered on 03/31/17 11:30 ; Start 03/31/17 at 10:30; Stop 03/31/17 at 10:31; Status DC Roflumilast (Daliresp) 500 mcg DAILY PO Last administered on 03/31/17 11:30; Start 03/31/17 at 10:30 Levofloxacin/ Dextrose 100 ml @ 100 mls/hr Q24H IV Last administered on 12:20; Start 03/31/17 at 11:00 Active Scripts Active Prednisone 10 Mg Tablet 10 Mg PO DAILY 4 by mouth daily for 3 days then 3 by mouth daily for 3 days then 2 by mouth daily for 3 days then 1 by mouth daily for 3 days Potassium Chloride 10 Meq Capsule.er 1 Cap PO DAILY Fluticasone Propionate Nasal [place] (Fluticasone Propionate) 1 [place] 2 [place] NS DAILY Zoloft (Sertraline Hcl) 50 Mg Tablet 50 Mg PO DAILY Reported Albuterol Sulfate Neb Soln (Albuterol Sulfate) 2.5 Mg/3 Ml Vial.neb 2.5 Mg NEB Q4HRS PRN Nexium Capsule (Esomeprazole Magnesium) 40 Mg Capsule. 40 Mg PO DAILYAC Singulair Tablet (Montelukast Sodium) 10 Mg Tablet 1 Tab PO DAILY Lasix (Furosemide) 20 Mg Tablet 1 Tab PO DAILY Symbicort 160-4.5 Mcg Inhaler (Budesonide/Formoterol Fumarate) 10.2 Gm Hfa.aer.ad 10.2 Gm IH BID Albuterol Sulfate Hfa Inhaler (Albuterol Sulfate) 8.5 Gm Hfa.aer.ad 8.5 Gm IH PRN Duoneb 0.5 Mg-3 Mg/3 Ml Soln (Ipratropium/Albuterol Sulfate) 3 Ml Ampul.neb 3 Ml IH QID Aspir 81 (Aspirin) 81 Mg Tablet. 81 Mg PO DAILY Vitals/I & O Vital Sign - Last 24 Hours 03/30/17 03/30/17 03/30/17 03/30/17 15:00 15:32 19:14 19:19 Temp 98.1 98.1 Pulse 76 Resp 20 B/P (MAP) 132/68 (89) Pulse Ox 96 96 96 O2 Delivery Nasal Cannula Nasal Cannula Nasal Cannula Nasal Cannula O2 Flow Rate 3.0 3.0 3.0 3.0 03/30/17 03/30/17 03/30/17 03/31/17 19:37 20:00 23:16 01:34 Temp 98.1 98.0 98.1 98.0 Pulse 85 77 Resp 20 20 B/P (MAP) 128/71 (90) 128/79 (95) Pulse Ox 95 96 O2 Delivery Nasal Cannula Nasal Cannula Nasal Cannula Nasal Cannula O2 Flow Rate 3.0 3.0 3.0 3.0 03/31/17 03/31/17 03/31/17 03/31/17 03:55 07:00 07:41 08:00 Temp 98.2 98.4 98.2 98.4 Pulse 82 70 Resp 20 20 B/P (MAP) 125/73 (90) 134/68 (90) Pulse Ox 94 97 98 O2 Delivery Nasal Cannula Nasal Cannula Nasal Cannula Nasal Cannula O2 Flow Rate 3.0 3.0 3.0 3.0 03/31/17 03/31/17 10:56 11:33 Temp 98.1 98.1 Pulse 84 Resp 20 B/P (MAP) 147/82 (103) Pulse Ox 96 O2 Delivery Nasal Cannula Nasal Cannula O2 Flow Rate 3.0 2.0 Intake and Output 03/31/17 03/31/17 04/01/17 15:00 23:00 07:00 Intake Total 500 ml Balance 500 ml BING AGMBLE MD Mar 31, 2017 14:12
[2017-03-31 15:00] VITALS: BP 136/76
[2017-03-31 19:55] VITALS: BP 131/88
[2017-03-31 22:20] VITALS: BP 142/88
[2017-04-01] MEDS: PROMETH/CODEINE 6.25/10MG 5 ML SYRUP. PO PRN ×2 (01:00→09:16)
[2017-04-01] MEDS: ALBUTEROL SULFATE 2.5 MG/3 ML NEBU. NEB PRN (02:58)
[2017-04-01 03:00] VITALS: BP 142/78
[2017-04-01 04:24] LABS: BASO % 0 % (0-3); EOS % 0 % (0-3); HEMATOCRIT 37.3 % (36.0-47.0); HEMOGLOBIN 12.2 g/dL (12.0-15.5); LYMPH # 2.3 x10^3/uL (1.0-4.8); LYMPH % 17 % (24-48); MEAN CORPUSCULAR HEMOGLOBIN 29 pg (25-35); MEAN CORPUSCULAR HGB CONC 33 g/dL (31-37); MEAN CORPUSCULAR VOLUME 89 fL (79-100); MONO % 13 % (0-9); NEUT % 70 % (31-73); PLATELET COUNT 252 x10^3/uL (140-400); RED BLOOD COUNT 4.21 x10^6/uL (3.50-5.40); RED CELL DISTRIBUTION WIDTH 14.5 % (11.5-14.5); WHITE BLOOD COUNT 13.6 x10^3/uL (4.0-11.0)
[2017-04-01 04:37] LABS: CALCIUM 8.1 mg/dL (8.5-10.1); CREATININE 0.9 mg/dL (0.6-1.0); GFR 77.8; POTASSIUM 3.6 mmol/L (3.5-5.1)
[2017-04-01 07:00] VITALS: BP 118/75
[2017-04-01] MEDS: BUDESONIDE 0.5 MG/2 ML NEBU. NEB SCH (07:36)
[2017-04-01] MEDS: IPRATRPIUM/ALBUTEROL 0.5/2.5MG 3 ML NEBU. IH SCH ×3 (07:36→15:34)
[2017-04-01] MEDS: FLUTICASONE 50MCG/NASAL SPRAY 16GM BOTTLE. NS SCH (09:16)
[2017-04-01] MEDS: guaiFENesin DM 600/30MG 1 TAB TAB.ER.12H PO SCH (09:19)
[2017-04-01] MEDS: ASPIRIN ENTERIC COATED 81 MG TABLET.DR. PO SCH (09:20)
[2017-04-01] MEDS: ROFLUMILAST 500 MCG TABLET. PO SCH (09:20)
[2017-04-01] MEDS: POTASSIUM CHLORIDE 10 MEQ TABLET.ER. PO SCH (09:20)
[2017-04-01] MEDS: SERTRALINE 50 MG TABLET. PO SCH (09:21)
[2017-04-01] MEDS: PANTOPRAZOLE 40 MG TABLET.DR. PO SCH (09:21)
[2017-04-01] MEDS: FUROSEMIDE 20 MG TABLET PO SCH (09:21)
[2017-04-01] MEDS: MONTELUKAST SODIUM 10 MG TABLET. PO SCH (09:21)
--- NOTE | 2017-04-01 10:58 | PDOC ---
PROGRESS NOTES Subjective Subjective Patient reports no chest pain. reports that cough is less productive and now a "dry cough" and also complains of a dry throat. Objective Objective Vital Signs Date Time Temp Pulse Resp B/P (MAP) Pulse Ox O2 Delivery O2 Flow Rate FiO2 04/01/17 08:05 Nasal Cannula 3.0 04/01/17 07:38 98 04/01/17 07:00 98.4 70 19 118/75 (89) 98.4 Intake and Output 04/02/17 07:00 Intake Total 250 ml Balance 250 ml Intake Oral 250 ml Physical Exam Physical Exam General: sitting upright in bed in no acute distress HEENT: EOMI, neck supple, no JVD CV: Regular rate and rhythm without murmurs resp: mildly increased work of breathing; mild wheezing and coarse breath sounds throughout abd: soft, non-tender, non-distended ext: no clubbing, cyanosis, or edema Assessment Assessment Assessment and Plan Patient is a 56 year old female admitted with acute on chronic respiratory failure 1. acute on chronic respiratory failure 2. acute on chronic COPD exacerbation 3. right heart failure with cor pulmonale--echocardiogram shows LVEF of 65% Yesterday was started on Daliresp and Levaquin by pulmonology Continue oral Lasix Comment Review of Relevant I have reviewed the following items paulette (where applicable) has been applied. Labs Laboratory Tests Test 03/31/17 04:40 04/01/17 03:45 White Blood Count 8.9 x10^3/uL (4.0-11.0) 13.6 x10^3/uL (4.0-11.0) Red Blood Count 4.11 x10^6/uL (3.50-5.40) 4.21 x10^6/uL (3.50-5.40) Hemoglobin 12.1 g/dL (12.0-15.5) 12.2 g/dL (12.0-15.5) Hematocrit 36.6 % (36.0-47.0) 37.3 % (36.0-47.0) Mean Corpuscular Volume 89 fL (79-100) 89 fL (79-100) Mean Corpuscular Hemoglobin 29 pg (25-35) 29 pg (25-35) Mean Corpuscular Hemoglobin Concent 33 g/dL (31-37) 33 g/dL (31-37) Red Cell Distribution Width 14.0 % (11.5-14.5) 14.5 % (11.5-14.5) Platelet Count 245 x10^3/uL (140-400) 252 x10^3/uL (140-400) Neutrophils (%) (Auto) 87 % (31-73) 70 % (31-73) Lymphocytes (%) (Auto) 9 % (24-48) 17 % (24-48) Monocytes (%) (Auto) 4 % (0-9) 13 % (0-9) Eosinophils (%) (Auto) 0 % (0-3) 0 % (0-3) Basophils (%) (Auto) 0 % (0-3) 0 % (0-3) Neutrophils # (Auto) 7.8 x10^3uL (1.8-7.7) 9.5 x10^3uL (1.8-7.7) Lymphocytes # (Auto) 0.8 x10^3/uL (1.0-4.8) 2.3 x10^3/uL (1.0-4.8) Monocytes # (Auto) 0.3 x10^3/uL (0.0-1.1) 1.8 x10^3/uL (0.0-1.1) Eosinophils # (Auto) 0.0 x10^3/uL (0.0-0.7) 0.0 x10^3/uL (0.0-0.7) Basophils # (Auto) 0.0 x10^3/uL (0.0-0.2) 0.0 x10^3/uL (0.0-0.2) Sodium Level 144 mmol/L (136-145) 145 mmol/L (136-145) Potassium Level 4.4 mmol/L (3.5-5.1) 3.6 mmol/L (3.5-5.1) Chloride Level 105 mmol/L (98-107) 105 mmol/L (98-107) Carbon Dioxide Level 37 mmol/L (21-32) 39 mmol/L (21-32) Anion Gap 2 (6-14) 1 (6-14) Blood Urea Nitrogen 17 mg/dL (7-20) 20 mg/dL (7-20) Creatinine 0.9 mg/dL (0.6-1.0) 0.9 mg/dL (0.6-1.0) Estimated GFR (Cockcroft-Gault) 77.8 77.8 Glucose Level 135 mg/dL (70-99) 92 mg/dL (70-99) Calcium Level 8.5 mg/dL (8.5-10.1) 8.1 mg/dL (8.5-10.1) Laboratory Tests Test 04/01/17 03:45 White Blood Count 13.6 x10^3/uL (4.0-11.0) Red Blood Count 4.21 x10^6/uL (3.50-5.40) Hemoglobin 12.2 g/dL (12.0-15.5) Hematocrit 37.3 % (36.0-47.0) Mean Corpuscular Volume 89 fL (79-100) Mean Corpuscular Hemoglobin 29 pg (25-35) Mean Corpuscular Hemoglobin Concent 33 g/dL (31-37) Red Cell Distribution Width 14.5 % (11.5-14.5) Platelet Count 252 x10^3/uL (140-400) Neutrophils (%) (Auto) 70 % (31-73) Lymphocytes (%) (Auto) 17 % (24-48) Monocytes (%) (Auto) 13 % (0-9) Eosinophils (%) (Auto) 0 % (0-3) Basophils (%) (Auto) 0 % (0-3) Neutrophils # (Auto) 9.5 x10^3uL (1.8-7.7) Lymphocytes # (Auto) 2.3 x10^3/uL (1.0-4.8) Monocytes # (Auto) 1.8 x10^3/uL (0.0-1.1) Eosinophils # (Auto) 0.0 x10^3/uL (0.0-0.7) Basophils # (Auto) 0.0 x10^3/uL (0.0-0.2) Sodium Level 145 mmol/L (136-145) Potassium Level 3.6 mmol/L (3.5-5.1) Chloride Level 105 mmol/L (98-107) Carbon Dioxide Level 39 mmol/L (21-32) Anion Gap 1 (6-14) Blood Urea Nitrogen 20 mg/dL (7-20) Creatinine 0.9 mg/dL (0.6-1.0) Estimated GFR (Cockcroft-Gault) 77.8 Glucose Level 92 mg/dL (70-99) Calcium Level 8.1 mg/dL (8.5-10.1) Medications Current Medications Albuterol/ Ipratropium (Duoneb) 3 ml 1X ONCE NEB Last administered on 16:16; Start 03/27/17 at 16:15; Stop 03/27/17 at 16:16; Status DC Methylprednisolone Sodium Succinate (SOLU-Medrol 125MG VIAL) 125 mg 1X ONCE IV Last administered on 03/27/17 16:25; Start 03/27/17 at 16:15; Stop at 16:16; Status DC Azithromycin 250 ml @ 250 mls/hr 1X ONCE IV Last administered on 03/27/17 16:32; Start 03/27/17 at 16:15; Stop 03/27/17 at 17:14; Status DC Ceftriaxone Sodium 50 ml @ 100 mls/hr 1X ONCE IV Last administered on 20:34; Start 03/27/17 at 17:45; Stop 03/27/17 at 18:14; Status DC Magnesium Sulfate/ Dextrose 50 ml @ 25 mls/hr 1X ONCE IV Last administered on 03/27/17 17:31; Start 03/27/17 at 18:00; Stop 03/27/17 at 19:59; Status DC Albuterol/ Ipratropium (Duoneb) 3 ml 1X ONCE NEB ; Start 03/27/17 at 18:00; Stop 03/27/17 at 18:01; Status DC Ondansetron HCl (Zofran) 4 mg PRN Q8HRS PRN IV NAUSEA/VOMITING; Start at 17:30; Stop 03/28/17 at 17:29; Status DC Albuterol/ Ipratropium (Duoneb) 3 ml RTQID NEB ; Start 03/27/17 at 20:00; Stop 03/27/17 at 20:00; Status DC Methylprednisolone Sodium Succinate (SOLU-Medrol 40MG VIAL) 40 mg Q8HRS IV ; Start 03/27/17 at 22:00; Stop 03/27/17 at 22:00; Status DC Albuterol/ Ipratropium (Duoneb) 3 ml Q4HRS NEB ; Start 03/27/17 at 20:00; Stop 03/27/17 at 20:06; Status DC Methylprednisolone Sodium Succinate (SOLU-Medrol 40MG VIAL) 40 mg Q8HRS IV Last administered on 03/31/17 06:07; Start 03/27/17 at 22:00; Stop 03/31/17 at 10:12; Status DC Budesonide (Pulmicort) 0.5 mg RTBID NEB ; Start 03/27/17 at 20:00; Stop at 20:06; Status DC Oxymetazoline HCl (Afrin) 2 spray PRN BID PRN NS NASAL STUFFINESS Last administered on 04/01/17 09:16; Start 03/27/17 at 19:15 Oxymetazoline HCl (Afrin) 2 spray 1X ONCE NS Last administered on 03/27/17 20:33; Start 03/27/17 at 19:30; Stop 03/27/17 at 19:31; Status DC Albuterol Sulfate (Ventolin Hfa) 1 puff QID IH ; Start 03/27/17 at 21:00; Stop 03/27/17 at 21:00; Status DC Albuterol Sulfate (Ventolin Neb Soln) 2.5 mg PRN Q4HRS PRN NEB SHORTNESS OF BREATH Last administered on 04/01/17 02:58; Start 03/27/17 at 19:45 Aspirin (Ecotrin) 81 mg DAILY PO Last administered on 04/01/17 09:20; Start 03/28/17 at 09:00 Fluticasone Propionate (Flonase) 2 spray DAILY NS Last administered on 09:16; Start 03/28/17 at 09:00 Furosemide (Lasix) 20 mg DAILY PO Last administered on 04/01/17 09:21; Start 03/28/17 at 09:00 Albuterol/ Ipratropium (Duoneb) 3 ml RTQID IH Last administered on 04/01/17 07:36; Start 03/27/17 at 21:00 Montelukast Sodium (Singulair) 10 mg DAILY PO Last administered on 04/01/17 09:21; Start 03/28/17 at 09:00 Prednisone (Prednisone) 10 mg DAILY PO Last administered on 03/28/17 09:23; Start 03/28/17 at 09:00; Stop 03/28/17 at 10:43; Status DC Sertraline HCl (Zoloft) 50 mg DAILY PO Last administered on 04/01/17 09:21; Start 03/28/17 at 09:00 Non-Formulary Medication 10.2 gm BID IH ; Start 03/27/17 at 21:00; Stop at 21:00; Status DC Pantoprazole Sodium (Protonix) 40 mg DAILYAC PO Last administered on 09:21; Start 03/28/17 at 07:30 Potassium Chloride (Klor-Con) 10 meq DAILYWBKFT PO Last administered on 09:20; Start 03/28/17 at 08:00 Budesonide (Pulmicort) 0.5 mg RTBID NEB Last administered on 04/01/17 07:36; Start 03/27/17 at 21:00 Promethazine HCl/ Codeine (Phenergan With Codeine) 5 ml PRN Q4HRS PRN PO COUGH Last administered on 04/01/17 09:16; Start 03/27/17 at 22:30 Acetaminophen/ Hydrocodone Bitart (Lortab 5/325) 1 tab PRN Q4HRS PRN PO MODERATE PAIN; Start 03/28/17 at 03:30; Stop 03/28/17 at 03:50; Status DC Ibuprofen (Motrin) 600 mg PRN Q6HRS PRN PO INFLAMMATION Last administered on 01:57; Start 03/28/17 at 04:45 Furosemide (Lasix) 40 mg 1X ONCE IVP Last administered on 03/28/17 16:38; Start 03/28/17 at 14:30; Stop 03/28/17 at 14:31; Status DC Levofloxacin/ Dextrose 100 ml @ 100 mls/hr Q24H IV Last administered on 14:48; Start 03/29/17 at 13:00; Stop 03/31/17 at 10:12; Status DC Guaifenesin (MUCINEX ER with DM) 1 tab BID PO Last administered on 04/01/17 09:19; Start 03/29/17 at 13:00 Prednisone (Prednisone) 30 mg 1X ONCE PO Last administered on 03/31/17 11:30 ; Start 03/31/17 at 10:30; Stop 03/31/17 at 10:31; Status DC Roflumilast (Daliresp) 500 mcg DAILY PO Last administered on 04/01/17 09:20; Start 03/31/17 at 10:30 Levofloxacin/ Dextrose 100 ml @ 100 mls/hr Q24H IV Last administered on 12:20; Start 03/31/17 at 11:00 Active Scripts Active Prednisone 10 Mg Tablet 10 Mg PO DAILY 4 by mouth daily for 3 days then 3 by mouth daily for 3 days then 2 by mouth daily for 3 days then 1 by mouth daily for 3 days Potassium Chloride 10 Meq Capsule.er 1 Cap PO DAILY Fluticasone Propionate Nasal [place] (Fluticasone Propionate) 1 [place] 2 [place] NS DAILY Zoloft (Sertraline Hcl) 50 Mg Tablet 50 Mg PO DAILY Reported Albuterol Sulfate Neb Soln (Albuterol Sulfate) 2.5 Mg/3 Ml Vial.neb 2.5 Mg NEB Q4HRS PRN Nexium Capsule (Esomeprazole Magnesium) 40 Mg Capsule. 40 Mg PO DAILYAC Singulair Tablet (Montelukast Sodium) 10 Mg Tablet 1 Tab PO DAILY Lasix (Furosemide) 20 Mg Tablet 1 Tab PO DAILY Symbicort 160-4.5 Mcg Inhaler (Budesonide/Formoterol Fumarate) 10.2 Gm Hfa.aer.ad 10.2 Gm IH BID Albuterol Sulfate Hfa Inhaler (Albuterol Sulfate) 8.5 Gm Hfa.aer.ad 8.5 Gm IH PRN Duoneb 0.5 Mg-3 Mg/3 Ml Soln (Ipratropium/Albuterol Sulfate) 3 Ml Ampul.neb 3 Ml IH QID Aspir 81 (Aspirin) 81 Mg Tablet. 81 Mg PO DAILY Vitals/I & O Vital Sign - Last 24 Hours 03/31/17 03/31/17 03/31/17 03/31/17 10:56 11:33 15:00 15:45 Temp 98.1 98.1 98.1 98.1 Pulse 84 82 Resp 20 20 B/P (MAP) 147/82 (103) 136/76 (96) Pulse Ox 96 97 O2 Delivery Nasal Cannula Nasal Cannula Nasal Cannula Nasal Cannula O2 Flow Rate 3.0 2.0 3.0 2.0 03/31/17 03/31/17 03/31/17 03/31/17 19:40 19:40 19:42 19:55 Temp 98.6 98.6 Pulse 83 Resp 16 B/P (MAP) 131/88 (102) Pulse Ox 98 98 91 O2 Delivery Nasal Cannula Nasal Cannula Nasal Cannula Nasal Cannula O2 Flow Rate 3.0 3.0 2.0 3.0 03/31/17 04/01/17 04/01/17 04/01/17 22:20 02:59 03:00 07:00 Temp 98.8 98.6 98.4 98.8 98.6 98.4 Pulse 90 73 70 Resp 22 18 19 B/P (MAP) 142/88 (106) 142/78 (99) 118/75 (89) Pulse Ox 94 98 96 95 O2 Delivery Nasal Cannula Nasal Cannula Nasal Cannula Nasal Cannula O2 Flow Rate 2.5 3.0 2.5 3.0 04/01/17 04/01/17 07:38 08:05 Pulse Ox 98 O2 Delivery Nasal Cannula Nasal Cannula O2 Flow Rate 3.0 3.0 Intake and Output 04/01/17 04/01/17 04/02/17 15:00 23:00 07:00 Intake Total 250 ml Balance 250 ml BING GAMBLE MD Apr 01, 2017 10:57
[2017-04-01 11:00] VITALS: BP 113/73
--- NOTE | 2017-04-01 14:19 | PDOC ---
PROGRESS NOTES Chief Complaint Chief Complaint Acute hypoxic respir failure ASSESSMENT AND PLAN: 1. Cor pulmonale w/ RHF: slowly improving. not quite back to baseline 2. COPD exacerbation: started on daliresp, levaquin. cont nebs/inhalers, suppl O2; mild CO2 retention 3. Hemoptysis: resolved. 4. HTN: accelerated at admit, now well controlled 5. History of Present Illness History of Present Illness some SOB, nonprod cough Vitals Vitals Vital Signs Date Time Temp Pulse Resp B/P (MAP) Pulse Ox O2 Delivery O2 Flow Rate FiO2 04/01/17 11:41 97 Nasal Cannula 3.0 04/01/17 11:00 98.3 87 19 113/73 (86) 98.3 Physical Exam General: Alert, Oriented X3, Cooperative Heart: Normal S1, Normal S2 Lungs: Wheezing, Crackles Abdomen: Normal bowel sounds, No tenderness, No hepatosplenomegaly Extremities: Other (edema) Skin: No rashes Labs LABS Laboratory Tests Test 04/01/17 03:45 White Blood Count 13.6 x10^3/uL (4.0-11.0) Red Blood Count 4.21 x10^6/uL (3.50-5.40) Hemoglobin 12.2 g/dL (12.0-15.5) Hematocrit 37.3 % (36.0-47.0) Mean Corpuscular Volume 89 fL (79-100) Mean Corpuscular Hemoglobin 29 pg (25-35) Mean Corpuscular Hemoglobin Concent 33 g/dL (31-37) Red Cell Distribution Width 14.5 % (11.5-14.5) Platelet Count 252 x10^3/uL (140-400) Neutrophils (%) (Auto) 70 % (31-73) Lymphocytes (%) (Auto) 17 % (24-48) Monocytes (%) (Auto) 13 % (0-9) Eosinophils (%) (Auto) 0 % (0-3) Basophils (%) (Auto) 0 % (0-3) Neutrophils # (Auto) 9.5 x10^3uL (1.8-7.7) Lymphocytes # (Auto) 2.3 x10^3/uL (1.0-4.8) Monocytes # (Auto) 1.8 x10^3/uL (0.0-1.1) Eosinophils # (Auto) 0.0 x10^3/uL (0.0-0.7) Basophils # (Auto) 0.0 x10^3/uL (0.0-0.2) Sodium Level 145 mmol/L (136-145) Potassium Level 3.6 mmol/L (3.5-5.1) Chloride Level 105 mmol/L (98-107) Carbon Dioxide Level 39 mmol/L (21-32) Anion Gap 1 (6-14) Blood Urea Nitrogen 20 mg/dL (7-20) Creatinine 0.9 mg/dL (0.6-1.0) Estimated GFR (Cockcroft-Gault) 77.8 Glucose Level 92 mg/dL (70-99) Calcium Level 8.1 mg/dL (8.5-10.1) KIKA HOLCOMB MD Apr 01, 2017 14:19
[2017-04-01 15:00] VITALS: BP 120/78
--- NOTE | 2017-04-01 16:16 | PDOC ---
PULMONARY PROGRESS NOTES Subjective PT BETTER TODAY AT TIMES COUGH Vitals Vital Signs Date Time Temp Pulse Resp B/P (MAP) Pulse Ox O2 Delivery O2 Flow Rate FiO2 04/01/17 15:35 96 Nasal Cannula 3.0 04/01/17 15:00 98.1 86 19 120/78 (92) 98.1 ROS: No Nausea, No Chest Pain, No Abdominal Pain HEENT: Other Lungs: Wheezing, Crackles Cardiovascular: S1, S2 Abdomen: Soft, Non-tender, Other Neuro Exam: Alert Extremities: Other (edema) Skin: Warm Labs Laboratory Tests Test 03/31/17 04:40 04/01/17 03:45 White Blood Count 8.9 x10^3/uL (4.0-11.0) 13.6 x10^3/uL (4.0-11.0) Red Blood Count 4.11 x10^6/uL (3.50-5.40) 4.21 x10^6/uL (3.50-5.40) Hemoglobin 12.1 g/dL (12.0-15.5) 12.2 g/dL (12.0-15.5) Hematocrit 36.6 % (36.0-47.0) 37.3 % (36.0-47.0) Mean Corpuscular Volume 89 fL (79-100) 89 fL (79-100) Mean Corpuscular Hemoglobin 29 pg (25-35) 29 pg (25-35) Mean Corpuscular Hemoglobin Concent 33 g/dL (31-37) 33 g/dL (31-37) Red Cell Distribution Width 14.0 % (11.5-14.5) 14.5 % (11.5-14.5) Platelet Count 245 x10^3/uL (140-400) 252 x10^3/uL (140-400) Neutrophils (%) (Auto) 87 % (31-73) 70 % (31-73) Lymphocytes (%) (Auto) 9 % (24-48) 17 % (24-48) Monocytes (%) (Auto) 4 % (0-9) 13 % (0-9) Eosinophils (%) (Auto) 0 % (0-3) 0 % (0-3) Basophils (%) (Auto) 0 % (0-3) 0 % (0-3) Neutrophils # (Auto) 7.8 x10^3uL (1.8-7.7) 9.5 x10^3uL (1.8-7.7) Lymphocytes # (Auto) 0.8 x10^3/uL (1.0-4.8) 2.3 x10^3/uL (1.0-4.8) Monocytes # (Auto) 0.3 x10^3/uL (0.0-1.1) 1.8 x10^3/uL (0.0-1.1) Eosinophils # (Auto) 0.0 x10^3/uL (0.0-0.7) 0.0 x10^3/uL (0.0-0.7) Basophils # (Auto) 0.0 x10^3/uL (0.0-0.2) 0.0 x10^3/uL (0.0-0.2) Sodium Level 144 mmol/L (136-145) 145 mmol/L (136-145) Potassium Level 4.4 mmol/L (3.5-5.1) 3.6 mmol/L (3.5-5.1) Chloride Level 105 mmol/L (98-107) 105 mmol/L (98-107) Carbon Dioxide Level 37 mmol/L (21-32) 39 mmol/L (21-32) Anion Gap 2 (6-14) 1 (6-14) Blood Urea Nitrogen 17 mg/dL (7-20) 20 mg/dL (7-20) Creatinine 0.9 mg/dL (0.6-1.0) 0.9 mg/dL (0.6-1.0) Estimated GFR (Cockcroft-Gault) 77.8 77.8 Glucose Level 135 mg/dL (70-99) 92 mg/dL (70-99) Calcium Level 8.5 mg/dL (8.5-10.1) 8.1 mg/dL (8.5-10.1) Laboratory Tests Test 04/01/17 03:45 White Blood Count 13.6 x10^3/uL (4.0-11.0) Red Blood Count 4.21 x10^6/uL (3.50-5.40) Hemoglobin 12.2 g/dL (12.0-15.5) Hematocrit 37.3 % (36.0-47.0) Mean Corpuscular Volume 89 fL (79-100) Mean Corpuscular Hemoglobin 29 pg (25-35) Mean Corpuscular Hemoglobin Concent 33 g/dL (31-37) Red Cell Distribution Width 14.5 % (11.5-14.5) Platelet Count 252 x10^3/uL (140-400) Neutrophils (%) (Auto) 70 % (31-73) Lymphocytes (%) (Auto) 17 % (24-48) Monocytes (%) (Auto) 13 % (0-9) Eosinophils (%) (Auto) 0 % (0-3) Basophils (%) (Auto) 0 % (0-3) Neutrophils # (Auto) 9.5 x10^3uL (1.8-7.7) Lymphocytes # (Auto) 2.3 x10^3/uL (1.0-4.8) Monocytes # (Auto) 1.8 x10^3/uL (0.0-1.1) Eosinophils # (Auto) 0.0 x10^3/uL (0.0-0.7) Basophils # (Auto) 0.0 x10^3/uL (0.0-0.2) Sodium Level 145 mmol/L (136-145) Potassium Level 3.6 mmol/L (3.5-5.1) Chloride Level 105 mmol/L (98-107) Carbon Dioxide Level 39 mmol/L (21-32) Anion Gap 1 (6-14) Blood Urea Nitrogen 20 mg/dL (7-20) Creatinine 0.9 mg/dL (0.6-1.0) Estimated GFR (Cockcroft-Gault) 77.8 Glucose Level 92 mg/dL (70-99) Calcium Level 8.1 mg/dL (8.5-10.1) Medications Active Scripts Medications Dose Route/Sig Max Daily Dose Days Date Category Dose Instructions Prednisone 10 Mg Tablet 10 Mg PO DAILY 01/01/17 Rx 4 by mouth daily for 3 days then 3 by mouth daily for 3 days then 2 by mouth daily for 3 days then 1 by mouth daily for 3 days Potassium Chloride 10 Meq Capsule.er 1 Cap PO DAILY 04/26/15 Rx Fluticasone Propionate Nasal Magnolia (Fluticasone Propionate) 1 Magnolia Magnolia 2 Magnolia NS DAILY 04/26/15 Rx Zoloft (Sertraline Hcl) 50 Mg Tablet 50 Mg PO DAILY 04/26/15 Rx Albuterol Sulfate Neb Soln (Albuterol Sulfate) 2.5 Mg/3 Ml Vial.neb 2.5 Mg NEB Q4HRS PRN 04/18/15 Reported Nexium Capsule (Esomeprazole Magnesium) 40 Mg Capsule.dr 40 Mg PO DAILYAC 04/18/15 Reported Singulair Tablet (Montelukast Sodium) 10 Mg Tablet 1 Tab PO DAILY 04/27/14 Reported Lasix (Furosemide) 20 Mg Tablet 1 Tab PO DAILY 04/27/14 Reported Symbicort 160-4.5 Mcg Inhaler (Budesonide/Formoterol Fumarate) 10.2 Gm Hfa.aer.ad 10.2 Gm IH BID 07/28/13 Reported Albuterol Sulfate Hfa Inhaler (Albuterol Sulfate) 8.5 Gm Hfa.aer.ad 8.5 Gm IH PRN 07/28/13 Reported Duoneb 0.5 Mg-3 Mg/3 Ml Soln (Ipratropium/Albuterol Sulfate) 3 Ml Ampul.neb 3 Ml IH QID 07/28/13 Reported Aspir 81 (Aspirin) 81 Mg Tablet.dr 81 Mg PO DAILY 07/28/13 Reported Impression . 1. Acute on chronic respiratory failure, patient failed outpatient treatment for acute exacerbation of chronic obstructive pulmonary disease. 2. Acute exacerbation of chronic obstructive pulmonary disease. 3. Acute on chronic cor pulmonale. 4. Tobacco dependence in remission. 5. Acute nonspecific bronchitis. Plan . D/C HOME ON STEROIDS AMD DALIRESP RX WRITTEN ORAL LEVAQUIN IF BETTER D/C IN AM 02 GLENIS SCHWARTZ MD Apr 01, 2017 16:16
[2017-04-01] MEDS ORDERED: PRED-220 PO (16:22)
[2017-04-01] MEDS ORDERED: AZIT1PAC9 PO (16:22)
[2017-04-01] MEDS ORDERED: ROFL500T7 PO (16:32)
== END 2017-04-01 18:07 | disposition home or self-care (01) | DRG 189 ==
LOC: ER 15:51 → 1 WEST ICU 16:30 → 2 SOUTH 03-28 22:16
PROVIDERS: ADMIT Internal Medicine; ATTEND Internal Medicine
PROC: 5A09357 Assistance with Respiratory Ventilation, Less than 24 Consecutive Hours, Continuous Positive Airway Pressure (ICD-10-PCS; principal; 2017-03-28)
DX: J96.21 Acute and chronic respiratory failure with hypoxia (principal); E87.2 Acidosis; I27.81 Cor pulmonale (chronic); K57.92 Diverticulitis of intestine, part unspecified, without perforation or abscess without bleeding; I11.0 Hypertensive heart disease with heart failure; I50.810 Right heart failure, unspecified; J44.1 Chronic obstructive pulmonary disease with (acute) exacerbation; J96.22 Acute and chronic respiratory failure with hypercapnia; F32.9 Major depressive disorder, single episode, unspecified; Z82.49 Family history of ischemic heart disease and other diseases of the circulatory system; F17.201 Nicotine dependence, unspecified, in remission; I25.10 Atherosclerotic heart disease of native coronary artery without angina pectoris; Z82.5 Family history of asthma and other chronic lower respiratory diseases; Z90.710 Acquired absence of both cervix and uterus; Z99.81 Dependence on supplemental oxygen; Z88.5 Allergy status to narcotic agent; Z88.0 Allergy status to penicillin
CPT/HCPCS: 36415; 36600; 71010; 80048; 80076; 82553; 82805; 83735; 83880; 84484; 85007; 85025; 87641; 93005; 93306; 94250; 94640; 94760; 96365; 96366; 96368; 96375; J0456; J0690; J1940; J1956; J2920; J2930; J7060; J7512; J7613; J7620; J7626; 99291-25

== ENCOUNTER → 2017-07-14 | Outpatient (CLI) | payer OTHER | END | disposition home or self-care (01) | LOC: MAMMO 08:42 | DX: Z12.31 Encounter for screening mammogram for malignant neoplasm of breast (principal) | CPT/HCPCS: 77067 ==

== ENCOUNTER → 2017-10-01 | Outpatient (CLI) | payer OTHER ==
[2017-10-01 16:41] LABS: BASE EXCESS ABG 3 mmol/L (-3-3); HCO3 ABG 30 mmol/L (21-28); PCO2 ABG 52 mmHg (35-46); PH ABG 7.37 (7.35-7.45); PO2 ABG 85 mmHg (65-108)
[2017-10-01 16:42] LABS: SAT O2 ABG 96 % (92-99)
== END | disposition home or self-care (01) ==
LOC: RT 15:15
DX: J44.9 Chronic obstructive pulmonary disease, unspecified (principal)
CPT/HCPCS: 36600; 82805

== ENCOUNTER → 2017-10-14 | Outpatient (CLI) | payer OTHER ==
[2017-10-14 12:39] LABS: ADD MAN DIFF? NO
[2017-10-14 12:45] LABS: BASO % 1 % (0-3); EOS % 2 % (0-3); HEMATOCRIT 37.2 % (36.0-47.0); HEMOGLOBIN 12.2 g/dL (12.0-15.5); LYMPH % 39 % (24-48); MEAN CORPUSCULAR HEMOGLOBIN 30 pg (25-35); MEAN CORPUSCULAR HGB CONC 33 g/dL (31-37); MEAN CORPUSCULAR VOLUME 90 fL (79-100); MONO % 15 % (0-9); NEUT # 2.9 x10^3uL (1.8-7.7); NEUT % 44 % (31-73); PLATELET COUNT 240 x10^3/uL (140-400); RED BLOOD COUNT 4.12 x10^6/uL (3.50-5.40); RED CELL DISTRIBUTION WIDTH 14.5 % (11.5-14.5); WHITE BLOOD COUNT 6.5 x10^3/uL (4.0-11.0)
[2017-10-14 12:46] LABS: BASO # 0.1 x10^3/uL (0.0-0.2); EOS # 0.1 x10^3/uL (0.0-0.7); LYMPH # 2.5 x10^3/uL (1.0-4.8)
[2017-10-14 13:13] LABS: ALBUMIN 3.7 g/dL (3.4-5.0); ALBUMIN/GLOBULIN RATIO 1.1 (1.0-1.7); ALK PHOS 58 U/L (46-116); ALT (SGPT) 32 U/L (14-59); ANION GAP 4 (6-14); AST (SGOT) 27 U/L (15-37); BLOOD UREA NITROGEN 17 mg/dL (7-20); BUN/CREATININE RATIO 19 (6-20); CALCIUM 8.9 mg/dL (8.5-10.1); CARBON DIOXIDE 34 mmol/L (21-32); CHLORIDE 107 mmol/L (98-107); CHOLESTEROL 244 mg/dL (0-200); CREATININE 0.9 mg/dL (0.6-1.0); GFR 77.5; GLUCOSE 115 mg/dL (70-99); HDLC 87 mg/dL (40-60); LDLC 140 mg/dL (0-100); NON-HDL CHOLESTEROL 157 mg/dL (0-129); POTASSIUM 3.5 mmol/L (3.5-5.1); SODIUM 145 mmol/L (136-145); TOTAL BILIRUBIN 0.3 mg/dL (0.2-1.0); TOTAL PROTEIN 7.2 g/dL (6.4-8.2); TRIGLYCERIDES 83 mg/dL (0-150); VLDLC 17 mg/dL (0-40)
[2017-10-14 13:14] LABS: THYROID STIM HORMONE (TSH) 1.673 uIU/mL (0.358-3.74)
[2017-10-14 13:14] LABS: FREE T4 0.89 ng/dL (0.76-1.46)
[2017-10-14 13:15] LABS: CHOLESTEROL/HDL RATIO 2.8
[2017-10-14 23:12] LABS: HEMOGLOBIN A1C 5.8 % (4.8-5.6)
== END | disposition home or self-care (01) ==
LOC: LAB 12:09
DX: Z13.220 Encounter for screening for lipoid disorders (principal); L65.9 Nonscarring hair loss, unspecified; R73.09 Other abnormal glucose; R79.89 Other specified abnormal findings of blood chemistry
CPT/HCPCS: 36415; 80053; 80061; 83036; 84439; 84443; 85025

== ENCOUNTER → 2018-01-17 | Outpatient (CLI) | payer OTHER | END | disposition home or self-care (01) | LOC: NM 08:27 | DX: R10.13 Epigastric pain (principal); R11.2 Nausea with vomiting, unspecified; R06.00 Dyspnea, unspecified; I10 Essential (primary) hypertension; J44.9 Chronic obstructive pulmonary disease, unspecified; Z87.891 Personal history of nicotine dependence | CPT/HCPCS: 78264; A9541 ==

== ENCOUNTER → 2018-03-17 | Outpatient (CLI) | payer OTHER ==
[2018-02-25 10:48] VITALS: BP 146/83
[~2018-03-17] MED LIST changes: +AZIT1PAC9 PO; +CLOP75TA PO; +GUAI600T79 PO; +POTA10TA12 PO; -POTASSIUM CHLO10 MEQ PO; +ROFL500T7 PO
[2018-03-17 08:32] LABS: BASO # 0.1 x10^3/uL (0.0-0.2); BASO % 2 % (0-3); EOS # 0.6 x10^3/uL (0.0-0.7); EOS % 11 % (0-3); HEMATOCRIT 32.2 % (36.0-47.0); HEMOGLOBIN 10.5 g/dL (12.0-15.5); LYMPH # 1.7 x10^3/uL (1.0-4.8); LYMPH % 35 % (24-48); MEAN CORPUSCULAR HEMOGLOBIN 29 pg (25-35); MEAN CORPUSCULAR HGB CONC 33 g/dL (31-37); MEAN CORPUSCULAR VOLUME 89 fL (79-100); MONO # 0.6 x10^3/uL (0.0-1.1); MONO % 12 % (0-9); NEUT % 40 % (31-73); PLATELET COUNT 334 x10^3/uL (140-400); RED BLOOD COUNT 3.63 x10^6/uL (3.50-5.40); RED CELL DISTRIBUTION WIDTH 15.5 % (11.5-14.5)
[2018-03-17 08:46] LABS: CALCIUM 8.8 mg/dL (8.5-10.1); CREATININE 0.9 mg/dL (0.6-1.0); GFR 77.5; POTASSIUM 4.2 mmol/L (3.5-5.1)
[2018-03-17 08:48] LABS: CHOLESTEROL/HDL RATIO 2.6
--- NOTE | 2018-03-17 16:28 | RAD ---
EXAM: Right inguinal sonogram. HISTORY: Lump status post cardiac catheterization. TECHNIQUE: Gaitan scale and color Doppler sonographic imaging of the right inguinal region with spectral waveform analysis was performed. COMPARISON: None. FINDINGS: There is no evidence of a pseudoaneurysm, aneurysm or hematoma. There is prominent right inguinal lymph nodes, largest of which measures 1.2 cm in long axis. IMPRESSION: 1. Prominent right inguinal lymph nodes, possibly reactive in etiology. 2. No evidence of a pseudoaneurysm, aneurysm or hematoma status post catheterization. Electronically signed by: Tiara Finch MD (03/17/2018 4:24 PM) [place] [id number]
[2018-03-18 00:16] LABS: HEMOGLOBIN A1C 5.7 % (4.8-5.6)
== END | disposition home or self-care (01) ==
LOC: US 12:14
PROVIDERS: ATTEND Family Medicine
DX: R19.09 Other intra-abdominal and pelvic swelling, mass and lump (principal)
CPT/HCPCS: 36415; 76881; 80048; 80061; 83036; 85025

== ENCOUNTER → 2018-04-19 | Outpatient (CLI) | payer OTHER ==
[2018-02-25 10:48] VITALS: BP 146/83
[2018-04-20 14:42] LABS: BASE EXCESS ABG 7 mmol/L (-3-3); HCO3 ABG 33 mmol/L (21-28); PCO2 ABG 56 mmHg (35-46); PO2 ABG 100 mmHg (65-108); SAT O2 ABG 97 % (92-99)
[2018-04-20 14:58] LABS: FIO2 ABG 32
== END | disposition home or self-care (01) ==
LOC: RT 14:15
PROVIDERS: ATTEND Internal Medicine Pulmonary Disease
DX: R07.9 Chest pain, unspecified (principal)
CPT/HCPCS: 36600; 82805

== ENCOUNTER → 2018-05-03 | Outpatient (CLI) | payer OTHER ==
[2018-02-25 10:48] VITALS: BP 146/83
== END | disposition home or self-care (01) ==
LOC: LAB 08:41
PROVIDERS: ATTEND Family Medicine
DX: J30.9 Allergic rhinitis, unspecified (principal)
CPT/HCPCS: 36415

== ENCOUNTER → 2018-06-08 | Outpatient (CLI) | payer OTHER ==
[2018-05-14 15:00] VITALS: BP 109/65
[~2018-06-08] MED LIST changes: +AZIT250T6 PO; +DOCU-109 PO; +FAMO20TA5 PO; +FLUT9.9S NS; +GUAI5SYR PO; +LACT1CAP19 PO; +SODI14.1 NS
--- NOTE | 2018-06-08 12:09 | RAD ---
Examination: CT of the chest without contrast HISTORY: History of bronchiectasis, COPD COMPARISON: 05/03/2018 TECHNIQUE: Axial CT images of chest were performed without contrast and coronal sagittal reformats are performed Exposure: One or more of the following individualized dose reduction techniques were utilized for this examination: 1. Automated exposure control 2. Adjustment of the mA and/or kV according to patient size 3. Use of iterative reconstruction technique FINDINGS: The central airways are patent. Mild cardiomegaly. Coronary artery calcifications identified. The central airways are patent. Mild to moderate diffuse emphysematous changes identified in the bilateral lungs similar to prior exam. Linear atelectasis or scarring identified in the right lung base of the left lingula similar to prior exam. No evidence of pleural effusion or pneumothorax identified. No evidence of traction bronchiectasis or honeycombing changes identified. The visualized noncontrasted liver, grossly appears unremarkable. Mild degenerative changes thoracic spine. IMPRESSION: 1. Mild to moderate emphysematous changes identified in the bilateral lungs particularly in the upper lobes. 2. Linear atelectasis or scarring in the left lingula and right lung base similar to prior exam. Electronically signed by: Brandon Thakur MD (06/08/2018 12:05 PM) [place] [id number]
== END | disposition home or self-care (01) ==
LOC: CT 10:25
PROVIDERS: ATTEND Internal Medicine Pulmonary Disease
DX: J47.9 Bronchiectasis, uncomplicated (principal); I25.10 Atherosclerotic heart disease of native coronary artery without angina pectoris; I51.7 Cardiomegaly
CPT/HCPCS: 71250

== ENCOUNTER → 2018-07-19 | Outpatient (CLI) | payer OTHER ==
[2018-05-14 15:00] VITALS: BP 109/65
[~2018-07-19] MED LIST changes: +DOXY100T PO; +FERR300L PO; +MONT10TA49 PO; -MONT10TA6 PO; +NEBU-132 MC
--- NOTE | 2018-07-19 11:31 | RAD ---
DATE: 07/19/2018 EXAM: MAMMO BENITEZ SCREENING BILATERAL HISTORY: Routine screening COMPARISON: 07/14/2017, 07/14/2016, and 07/12/2015 mammographic exams This study was interpreted with the benefit of Computerized Aided Detection (CAD). Breast Density: SCATTERED The breast parenchyma shows scattered fibroglandular densities. Breast parenchyma level B. FINDINGS: MLO and CC images of each breast were obtained. Tomosynthesis utilized. There is no mass or distortion. Benign-appearing lymph nodes are present. Benign calcifications are present. IMPRESSION: Benign findings. BI-RADS CATEGORY: 2 BENIGN FINDING(S) RECOMMENDED FOLLOW-UP: 12M 12 MONTH FOLLOW-UP PQRS compliance statement: Patient information was entered into a reminder system with a target due date in one year for the next mammogram. Mammography is a sensitive method for finding small breast cancers, but it does not detect them all and is not a substitute for careful clinical examination. A negative mammogram does not negate a clinically suspicious finding and should not result in delay in biopsying a clinically suspicious abnormality. "Our facility is accredited by the [place] [employer] Mammography Program."
== END | disposition home or self-care (01) ==
LOC: MAMMO 08:51
PROVIDERS: ATTEND Family Medicine
DX: Z12.31 Encounter for screening mammogram for malignant neoplasm of breast (principal)
CPT/HCPCS: 77063; 77067

== ENCOUNTER 2018-08-23 11:34 | Inpatient (IN) | payer OTHER ==
[~2018-08-23] VITALS: Ht 152.4 cm; Wt 70.6 kg
[~2018-08-23 11:34] MED LIST changes: -DOXY100T PO; -FERR300L PO; -MONT10TA49 PO; +MONT10TA6 PO; -NEBU-132 MC
[2018-08-23] MEDS ORDERED: IPRATRPIUM/ALBUTEROL 0.5/2.5MG 3 ML NEBU. NEB ONE (12:30)
[2018-08-23] MEDS ORDERED: methylPREDNISolone SOD SUCC PF 125 MG/2 ML VIAL. IV ONE (12:30)
[2018-08-23 12:36] LABS: BASO # 0.1 x10^3/uL (0.0-0.2); BASO % 1 % (0-3); EOS # 0.6 x10^3/uL (0.0-0.7); EOS % 11 % (0-3); HEMATOCRIT 27.4 % (36.0-47.0); HEMOGLOBIN 8.1 g/dL (12.0-15.5); LYMPH # 1.3 x10^3/uL (1.0-4.8); LYMPH % 23 % (24-48); MEAN CORPUSCULAR HEMOGLOBIN 21 pg (25-35); MEAN CORPUSCULAR HGB CONC 30 g/dL (31-37); MEAN CORPUSCULAR VOLUME 70 fL (79-100); MONO # 0.9 x10^3/uL (0.0-1.1); MONO % 17 % (0-9); NEUT # 2.6 x10^3uL (1.8-7.7); NEUT % 47 % (31-73); PLATELET COUNT 296 x10^3/uL (140-400); RED BLOOD COUNT 3.92 x10^6/uL (3.50-5.40); RED CELL DISTRIBUTION WIDTH 19.2 % (11.5-14.5); WHITE BLOOD COUNT 5.4 x10^3/uL (4.0-11.0)
[2018-08-23 12:40] LABS: CALCIUM 8.7 mg/dL (8.5-10.1); CREATININE 0.7 mg/dL (0.6-1.0); GFR 103.3; POTASSIUM 3.8 mmol/L (3.5-5.1)
[2018-08-23 12:41] LABS: PROTHROMBIN TIME PATIENT 13.4 SEC (11.7-14.0)
[2018-08-23 12:46] LABS: ALBUMIN 3.6 g/dL (3.4-5.0); ALBUMIN/GLOBULIN RATIO 1.1 (1.0-1.7); TOTAL BILIRUBIN 0.3 mg/dL (0.2-1.0); TOTAL PROTEIN 6.8 g/dL (6.4-8.2)
--- NOTE | 2018-08-23 12:49 | RAD ---
Portable chest, 08/23/2018: HISTORY: Shortness of breath Comparison is made to a study from 05/10/2018. The heart is at the upper limits of normal in size. There is calcific plaquing the aorta. There is prominence of the central pulmonary arteries which is unchanged. The skin raise the possibility of pulmonary arterial hypertension. No pulmonary infiltrate is seen. There is no evidence of pleural fluid. IMPRESSION: No acute cardiopulmonary abnormality is detected. Electronically signed by: Jarrett Vanegas MD (08/23/2018 12:46 PM) [facility]
[2018-08-23 13:06] LABS: ANISOCYTOSIS SLIGHT; OVALOCYTES FEW; PLT ESTIMATE ADEQUATE (ADEQUATE)
[2018-08-23 13:07] LABS: MICROCYTOSIS PRESENT; POLYCHROMASIA SLIGHT
[2018-08-23 13:10] LABS: INFLUENZA A PATIENT NEGATIVE (NEGATIVE); INFLUENZA B PATIENT NEGATIVE (NEGATIVE)
--- NOTE | 2018-08-23 13:37 | EKG ---
[facility] [address] [place] [address] Test Date: 2018-08-23 Test Time: 11:56:29 Pat Name: EDDI QUEZADA Department: Room: Gender: F [employer]: : [id number] Requested By: DEAN HANDLEY Order Number: [id number] Reading MD: Judd Castillo MD Measurements Intervals [place] Rate: 93 P: 53 IN: 138 QRS: 2 QRSD: 78 T: 36 QT: 366 QTc: 458 Interpretive Statements SINUS RHYTHM PVC Electronically Signed On 09-01-2018 9:28:04 CDT by Judd Castillo MD
[2018-08-23] MEDS ORDERED: IOHEXOL 350 MG/ML 100 ML VIAL. IV ONE (15:15)
[2018-08-23] MEDS ORDERED: CONTRAST GIVEN. MC PRN (15:15)
--- NOTE | 2018-08-23 15:28 | PHYS DOC ---
Past Medical History Past Medical History: CAD, COPD, Other Additional Past Medical Histor: CHRONIC BRONCHITIS Past Surgical History: Angioplasty, Hysterectomy, Tonsillectomy, Other Additional Past Surgical Histo: HEART CATH,EXP SURG X4, laproscopy Alcohol Use: None Drug Use: None Adult General Chief Complaint Chief Complaint: SHORTNESS OF BREATH HPI HPI Patient is a 58 year old female with a history of COPD, on oxygen 2 L chronically, CAD, who presents to the ED today complaining of cough, shortness of breath since February 2018. Patient states she's been using her breathing treatments at home with minimal relief. She is also complaining of nasal congestion for the last 3 weeks. Denies any fever. Denies any chest pain. Review of Systems Review of Systems Constitutional: Denies fever or chills [] Eyes: Denies change in visual acuity, redness, or eye pain [] HENT: Reports nasal congestion denies sore throat [] Respiratory: Reports cough and shortness of breath [] Cardiovascular: No additional information not addressed in HPI [] GI: Denies abdominal pain, nausea, vomiting, bloody stools or diarrhea [] : Denies dysuria or hematuria [] Musculoskeletal: Denies back pain or joint pain [] Integument: Denies rash or skin lesions [] Neurologic: Denies headache, focal weakness or sensory changes [] All other systems were reviewed and found to be within normal limits, except as documented in this note. Current Medications Current Medications Current Medications Medications (Trade) Dose Ordered Sig/Umang Start Time Stop Time Status Last Admin Dose Admin Albuterol/ Ipratropium (Duoneb) 3 ml 1X ONCE 08/23/18 12:30 08/23/18 12:31 DC 08/23/18 12:35 3 ML Methylprednisolone Sodium Succinate (SOLU-Medrol 125MG VIAL) 125 mg 1X ONCE 08/23/18 12:30 08/23/18 12:31 DC 08/23/18 12:38 125 MG Allergies Allergies Allergies Coded Allergies Type Severity Reaction Last Updated Verified Penicillins Allergy Intermediate rash 03/03/16 Yes morphine Allergy Intermediate Rash-PERCOCET OK 03/03/16 Yes benzonatate Adverse Reaction Intermediate Itching 05/14/18 Yes Physical Exam Physical Exam Constitutional: Well developed, well nourished, no acute distress, non-toxic appearance. [] HENT: Normocephalic, atraumatic, bilateral external ears normal, oropharynx moist, no oral exudates, nose normal. [] Eyes: PERRLA, EOMI, conjunctiva normal, no discharge. [] Neck: Normal range of motion, no tenderness, supple, no stridor. [] Cardiovascular:Heart rate regular rhythm, no murmur [] Lungs & Thorax: Wheezing noted on bilateral anterior upper lung bases Abdomen: Bowel sounds normal, soft, no tenderness, no masses, no pulsatile masses. [] Skin: Warm, dry, no erythema, no rash. [] Back: No tenderness, no CVA tenderness. [] Extremities: No tenderness, no cyanosis, no clubbing, ROM intact, no edema. [] Neurologic: Alert and oriented X 3, normal motor function, normal sensory function, no focal deficits noted. [] Psychologic: Affect normal, judgement normal, mood normal. [] Current Patient Data Vital Signs Vital Signs Date Time Temp Pulse Resp B/P (MAP) Pulse Ox O2 Delivery O2 Flow Rate FiO2 08/23/18 14:15 86 155/77 (103) 96 Nasal Cannula 2.0 08/23/18 11:43 98.6 24 98.6 Lab Values Laboratory Tests Test 08/23/18 12:17 08/23/18 12:45 White Blood Count 5.4 x10^3/uL (4.0-11.0) Red Blood Count 3.92 x10^6/uL (3.50-5.40) Hemoglobin 8.1 g/dL (12.0-15.5) L Hematocrit 27.4 % (36.0-47.0) L Mean Corpuscular Volume 70 fL (79-100) L Mean Corpuscular Hemoglobin 21 pg (25-35) L Mean Corpuscular Hemoglobin Concent 30 g/dL (31-37) L Red Cell Distribution Width 19.2 % (11.5-14.5) H Platelet Count 296 x10^3/uL (140-400) Neutrophils (%) (Auto) 47 % (31-73) Lymphocytes (%) (Auto) 23 % (24-48) L Monocytes (%) (Auto) 17 % (0-9) H Eosinophils (%) (Auto) 11 % (0-3) H Basophils (%) (Auto) 1 % (0-3) Neutrophils # (Auto) 2.6 x10^3uL (1.8-7.7) Lymphocytes # (Auto) 1.3 x10^3/uL (1.0-4.8) Monocytes # (Auto) 0.9 x10^3/uL (0.0-1.1) Eosinophils # (Auto) 0.6 x10^3/uL (0.0-0.7) Basophils # (Auto) 0.1 x10^3/uL (0.0-0.2) Platelet Estimate Adequate (ADEQUATE) Polychromasia Slight Anisocytosis Slight Microcytosis Present Ovalocytes Few Prothrombin Time 13.4 SEC (11.7-14.0) Prothrombin Time INR 1.1 (0.8-1.1) Sodium Level 146 mmol/L (136-145) H Potassium Level 3.8 mmol/L (3.5-5.1) Chloride Level 105 mmol/L (98-107) Carbon Dioxide Level 37 mmol/L (21-32) H Anion Gap 4 (6-14) L Blood Urea Nitrogen 8 mg/dL (7-20) Creatinine 0.7 mg/dL (0.6-1.0) Estimated GFR (Cockcroft-Gault) 103.3 BUN/Creatinine Ratio 11 (6-20) Glucose Level 94 mg/dL (70-99) Calcium Level 8.7 mg/dL (8.5-10.1) Magnesium Level 2.0 mg/dL (1.8-2.4) Total Bilirubin 0.3 mg/dL (0.2-1.0) Aspartate Amino Transferase (AST) 19 U/L (15-37) Alanine Aminotransferase (ALT) 25 U/L (14-59) Alkaline Phosphatase 64 U/L (46-116) Creatine Kinase 371 U/L (26-192) H Creatine Kinase MB (Mass) 3.6 ng/mL (0.0-3.6) Creatine Kinase MB Relative Index 1.0 % (0-4) Troponin I Quantitative 0.048 ng/mL (0.000-0.055) [id number]-Type Natriuretic Peptide 413 pg/mL (0-124) H Total Protein 6.8 g/dL (6.4-8.2) Albumin 3.6 g/dL (3.4-5.0) Albumin/Globulin Ratio 1.1 (1.0-1.7) Thyroid Stimulating Hormone (TSH) 0.791 uIU/mL (0.358-3.74) Influenza Type A Antigen Negative (NEGATIVE) Influenza Type B Antigen Negative (NEGATIVE) Laboratory Tests 08/23/18 12:17 Laboratory Tests 08/23/18 12:17 EKG EKG 15:[address] De Leon sinus rhythm HR 93 no STEMI Radiology/Procedures Radiology/Procedures []PROCEDURE: PORTABLE CHEST 1V Portable chest, 08/23/2018: HISTORY: Shortness of breath Comparison is made to a study from 05/10/2018. The heart is at the upper limits of normal in size. There is calcific plaquing the aorta. There is prominence of the central pulmonary arteries which is unchanged. The skin raise the possibility of pulmonary arterial hypertension. No pulmonary infiltrate is seen. There is no evidence of pleural fluid. IMPRESSION: No acute cardiopulmonary abnormality is detected. Electronically signed by: Jarrett Vanegas MD (08/23/2018 12:46 PM) [facility] DICTATED and SIGNED BY: JARRETT VANEGAS MD DATE: 08/23/18 1246 Course & Med Decision Making Course & Med Decision Making Pertinent Labs and Imaging studies reviewed. (See chart for details) This is a 58-year-old female patient presented to the ED today with a COPD exacerbation. Symptoms have been going on since February 2018. Patient is given a DuoNeb treatment in the ED. Also given Solu-Medrol. Chest x-ray is negative, EKG was negative, labs are negative for any acute findings. Patient is still complaining of a sensation of something in her chest. Denies any pain. Ordered CT chest. Consulted with Dr. Grajeda who accepted patient for admission. Routine consult placed for pulmonary Dragon Disclaimer Dragon Disclaimer This electronic medical record was generated, in whole or in part, using a voice recognition dictation system. Departure Departure Impression: Primary Impression: COPD exacerbation Disposition: ADMITTED INPATIENT Condition: STABLE Referrals: CIERRA ORTEGA MD (PCP) DEAN HANDLEY APRN Aug 23, 2018 15:28
[2018-08-23] MEDS ORDERED: ONDANSETRON PF 4 MG/2 ML VIAL. IV PRN (15:45)
[2018-08-23] MEDS ORDERED: ACETAMINOPHEN 325 MG TABLET. PO PRN (15:45)
[2018-08-23] MEDS ORDERED: fentaNYL PF VIAL 100 MCG/2 ML VIAL IV PRN (15:45)
--- NOTE | 2018-08-23 15:51 | RAD ---
CTA of the chest with contrast, 08/23/2018: HISTORY: Shortness of breath Multidetector CT imaging was performed following an IV bolus injection of iodinated contrast material utilizing the pulmonary embolism protocol. Multiplanar reconstructions were produced including coronal and sagittal MIP images. The main pulmonary artery measures 2.6 cm in width. The right pulmonary artery is mildly prominent. No filling defects are seen in the central pulmonary arteries to suggest pulmonary emboli.There is moderate calcific plaquing of the thoracic aorta without evidence of aneurysm. Coronary artery calcifications are present. No mediastinal or hilar adenopathy is seen. No pulmonary infiltrate or mass is seen. There is no evidence of pleural fluid. IMPRESSION: No CT evidence of central pulmonary emboli. PQRS Compliance Statement: One or more of the following individualized dose reduction techniques were utilized for this examination: 1. Automated exposure control 2. Adjustment of the mA and/or kV according to patient size 3. Use of iterative reconstruction technique Electronically signed by: Jarrett Vanegas MD (08/23/2018 3:48 PM) [facility]
[2018-08-23] MEDS: IPRATRPIUM/ALBUTEROL 0.5/2.5MG 3 ML NEBU. NEB SCH ×2 (15:53→19:35)
[2018-08-23 17:31] VITALS: BP 150/94
[2018-08-23 19:00] VITALS: BP 149/90
--- NOTE | 2018-08-23 21:00 | PDOC1 ---
History and Physical Date of Admission Date of Admission DATE: 08/23/18 TIME: 21:00 Identification/Chief Complaint Chief Complaint seen in ER WITH HX CAD, who presents to the ED today complaining of cough, shortness of breath Patient states she's been using her breathing treatments at home with minimal relief. Denies any fever. Denies any chest pain. Past Medical History Past Medical History Past Medical History Past Medical History: CAD, COPD, Other Additional Past Medical Histor: CHRONIC BRONCHITIS Past Surgical History: Angioplasty, Hysterectomy, Tonsillectomy, Other Additional Past Surgical Histo: HEART CATH,EXP SURG X4, laproscopy Alcohol Use: None Drug Use: None FHX COPD Cardiovascular: HTN Pulmonary: Bronchitis, COPD GI: GERD Psych: Depression Past Surgical History Past Surgical History: Hysterectomy, Other Family History Family History Past Medical History Cardiovascular: HTN Pulmonary: Bronchitis, COPD Psych: Depression Past Surgical History Past Surgical History: Hysterectomy, Other Family History Family History: Hypertension Social History Smoke: No ALCOHOL: none Drugs: None Family History: Chronic Bronchitis, Hypertension Social History Smoke: Quit ALCOHOL: none Drugs: None Current Medications Current Medications Current Medications Albuterol/ Ipratropium (Duoneb) 3 ml 1X ONCE NEB Last administered on at 12:35; Admin Dose 3 ML; Start 08/23/18 at 12:30; Stop 08/23/18 at 12:31; Status DC Methylprednisolone Sodium Succinate (SOLU-Medrol 125MG VIAL) 125 mg 1X ONCE IV Last administered on 08/23/18at 12:38; Admin Dose 125 MG; Start 08/23/18 at 12: 30; Stop 08/23/18 at 12:31; Status DC Iohexol (Omnipaque 350 Mg/ml) 90 ml 1X ONCE IV Last administered on 08/23/18at 15:23; Admin Dose 90 ML; Start 08/23/18 at 15:15; Stop 08/23/18 at 15:16; Status DC Info (CONTRAST GIVEN -- Rx MONITORING) 1 each PRN DAILY PRN MC SEE COMMENTS; Start 08/23/18 at 15:15; Stop 08/25/18 at 15:14 Ondansetron HCl (Zofran) 4 mg PRN Q8HRS PRN IV NAUSEA/VOMITING; Start 08/23/18 at 15:45; Stop 08/24/18 at 15:44 Fentanyl Citrate (Fentanyl 2ml Vial) 50 mcg PRN Q1HR PRN IV PAIN; Start at 15:45; Stop 08/24/18 at 15:44 Acetaminophen (Tylenol) 650 mg PRN Q4HRS PRN PO FEVER; Start 08/23/18 at 15:45 ; Stop 08/24/18 at 15:44 Albuterol/ Ipratropium (Duoneb) 3 ml RTQID NEB Last administered on 08/23/18at 19:35; Admin Dose 3 ML; Start 08/23/18 at 16:00; Stop 08/24/18 at 15:59 Methylprednisolone Sodium Succinate (SOLU-Medrol 40MG VIAL) 40 mg Q8HRS IV ; Start 08/23/18 at 22:00 Active Scripts Active Colace (Docusate Sodium) 100 Mg Capsule 100 Mg PO PRN DAILY PRN 30 Days Azithromycin Tablet (Azithromycin) 250 Mg Tablet 250 Mg PO DAILY 7 Days Famotidine 20 Mg Tablet 20 Mg PO BID 30 Days Culturelle (Lactobacillus Rhamnosus Gg) 1 Each Cap.sprink 1 Cap PO BID 14 Days Prednisone (Prednisone) 10 Mg Tablet 30 Mg PO DAILY 14 Days [place] Saline Nasal Gel (Sodium Chloride/Aloe Vera) 14.1 Gm Gel..gram. 1 [place] NS [id number] 14 Days Daliresp (Roflumilast) 500 Mcg Tablet 500 Mcg PO DAILY 30 Days Guaifenesin Dm Syrup (Guaifenesin/Dextromethorphan) 5 Ml Syrup 10 Ml PO PRN Q6HRS PRN 30 Days Azithromycin Packet (Azithromycin) 1 Gm Packet 1 Packet PO ONCE Potassium Chloride 10 Meq Capsule.er 1 Cap PO DAILY Reported Flonase Allergy Relief (Fluticasone Propionate) 9.9 Ml [place].susp 2 Sprays NS BID Zoloft (Sertraline Hcl) 50 Mg Tablet 1 Tab PO HS Clopidogrel (Clopidogrel Bisulfate) 75 Mg Tablet 1 Tab PO DAILY Guaifenesin 600 Mg Tablet.er 600 Mg PO DAILY Nexium Capsule (Esomeprazole Magnesium) 40 Mg Capsule.dr 40 Mg PO DAILYAC Singulair Tablet (Montelukast Sodium) 10 Mg Tablet 1 Tab PO HS Lasix (Furosemide) 20 Mg Tablet 1 Tab PO DAILY16 Symbicort 160-4.5 Mcg Inhaler (Budesonide/Formoterol Fumarate) 10.2 Gm Hfa.aer.ad 10.2 Gm IH BID Albuterol Sulfate Hfa Inhaler (Albuterol Sulfate) 8.5 Gm Hfa.aer.ad 8.5 Gm IH PRN Duoneb 0.5 Mg-3 Mg/3 Ml Soln (Ipratropium/Albuterol Sulfate) 3 Ml [place].neb 3 Ml IH QID Aspir 81 (Aspirin) 81 Mg Tablet.dr 81 Mg PO DAILY Allergies Allergies: Coded Allergies: Penicillins (Verified Allergy, Intermediate, rash, 03/03/16) morphine (Verified Allergy, Intermediate, Rash-PERCOCET [place], 03/03/16) benzonatate (Verified Adverse Reaction, Intermediate, Itching, 05/14/18) ROS Review of System Review of Systems Review of Systems Constitutional: Denies fever or chills [] Eyes: Denies change in visual acuity, redness, or eye pain [] HENT: Reports nasal congestion denies sore throat [] Respiratory: Reports cough and shortness of breath [] WHEEZING Cardiovascular: No additional information not addressed in HPI [] GI: Denies abdominal pain, nausea, vomiting, bloody stools or diarrhea [] : Denies dysuria or hematuria [] Musculoskeletal: Denies back pain or joint pain [] Integument: Denies rash or skin lesions [] Neurologic: Denies headache, focal weakness or sensory changes [] 14 PT systems were reviewed and found to be within normal limits, except as documenteD. General: YES: Fatigue Respiratory: YES: Cough, Shortness of breath, SOB with excertion, Sputum Changes Gastrointestinal: No Nausea, No Vomiting, No Abdominal Pain, No Diarrhea, No Constipation, No Melena, No Hematochezia, No Other Musculoskeletal: Yes Joint Stiffness Physical Exam Physical Exam Physical Exam Physical Exam Constitutional: Well developed, well nourished, MOD acute distress, non-toxic appearance. [] HENT: Normocephalic, atraumatic, bilateral external ears normal, oropharynx moist, no oral exudates, nose normal. [] Eyes: PERRLA, EOMI, conjunctiva normal, no discharge. [] Neck: Normal range of motion, no tenderness, supple, no stridor. [] Cardiovascular:Heart rate regular rhythm, no murmur [] Lungs & Thorax: Wheezing noted on bilateral anterior upper lung bases Abdomen: Bowel sounds normal, soft, no tenderness, no masses, no pulsatile masses. [] Skin: Warm, dry, no erythema, no rash. [] Back: No tenderness, no CVA tenderness. [] Extremities: No tenderness, no cyanosis, no clubbing, ROM intact, no edema. [] Neurologic: Alert and oriented X 3, normal motor function, normal sensory function, no focal deficits noted. [] Psychologic: Affect normal, judgement normal, mood normal. [] General: Alert, Oriented X3, Cooperative, moderate distress HEENT: PERRLA, EOMI, Mucous membr. moist/pink Heart: RRR Breasts: Not examined Abdomen: Soft Rectal Exam: not examined Extremities: No cyanosis Skin: No breakdown Neuro: Normal speech, Cranial nerves 3-12 NL Psych/Mental Status: Mental status NL, Mood NL Vitals Vitals Vital Signs Date Time Temp Pulse Resp B/P (MAP) Pulse Ox O2 Delivery O2 Flow Rate FiO2 08/23/18 19:36 92 Nasal Cannula 2.0 08/23/18 19:00 97.8 18 18 149/90 (109) 97.8 Labs Labs Laboratory Tests Test 08/23/18 12:17 08/23/18 12:45 White Blood Count 5.4 x10^3/uL (4.0-11.0) Red Blood Count 3.92 x10^6/uL (3.50-5.40) Hemoglobin 8.1 g/dL (12.0-15.5) Hematocrit 27.4 % (36.0-47.0) Mean Corpuscular Volume 70 fL (79-100) Mean Corpuscular Hemoglobin 21 pg (25-35) Mean Corpuscular Hemoglobin Concent 30 g/dL (31-37) Red Cell Distribution Width 19.2 % (11.5-14.5) Platelet Count 296 x10^3/uL (140-400) Neutrophils (%) (Auto) 47 % (31-73) Lymphocytes (%) (Auto) 23 % (24-48) Monocytes (%) (Auto) 17 % (0-9) Eosinophils (%) (Auto) 11 % (0-3) Basophils (%) (Auto) 1 % (0-3) Neutrophils # (Auto) 2.6 x10^3uL (1.8-7.7) Lymphocytes # (Auto) 1.3 x10^3/uL (1.0-4.8) Monocytes # (Auto) 0.9 x10^3/uL (0.0-1.1) Eosinophils # (Auto) 0.6 x10^3/uL (0.0-0.7) Basophils # (Auto) 0.1 x10^3/uL (0.0-0.2) Platelet Estimate Adequate (ADEQUATE) Polychromasia Slight Anisocytosis Slight Microcytosis Present Ovalocytes Few Prothrombin Time 13.4 SEC (11.7-14.0) Prothromb Time International Ratio 1.1 (0.8-1.1) Sodium Level 146 mmol/L (136-145) Potassium Level 3.8 mmol/L (3.5-5.1) Chloride Level 105 mmol/L (98-107) Carbon Dioxide Level 37 mmol/L (21-32) Anion Gap 4 (6-14) Blood Urea Nitrogen 8 mg/dL (7-20) Creatinine 0.7 mg/dL (0.6-1.0) Estimated GFR (Cockcroft-Gault) 103.3 BUN/Creatinine Ratio 11 (6-20) Glucose Level 94 mg/dL (70-99) Calcium Level 8.7 mg/dL (8.5-10.1) Magnesium Level 2.0 mg/dL (1.8-2.4) Total Bilirubin 0.3 mg/dL (0.2-1.0) Aspartate Amino Transf (AST/SGOT) 19 U/L (15-37) Alanine Aminotransferase (ALT/SGPT) 25 U/L (14-59) Alkaline Phosphatase 64 U/L (46-116) Creatine Kinase 371 U/L (26-192) Creatine Kinase MB (Mass) 3.6 ng/mL (0.0-3.6) Creatine Kinase MB Relative Index 1.0 % (0-4) Troponin I Quantitative 0.048 ng/mL (0.000-0.055) VI-Gez-V-Type Natriuretic Peptide 413 pg/mL (0-124) Total Protein 6.8 g/dL (6.4-8.2) Albumin 3.6 g/dL (3.4-5.0) Albumin/Globulin Ratio 1.1 (1.0-1.7) Thyroid Stimulating Hormone (TSH) 0.791 uIU/mL (0.358-3.74) Influenza Type A Antigen Negative (NEGATIVE) Influenza Type B Antigen Negative (NEGATIVE) Laboratory Tests Test 08/23/18 12:17 08/23/18 12:45 White Blood Count 5.4 x10^3/uL (4.0-11.0) Red Blood Count 3.92 x10^6/uL (3.50-5.40) Hemoglobin 8.1 g/dL (12.0-15.5) Hematocrit 27.4 % (36.0-47.0) Mean Corpuscular Volume 70 fL (79-100) Mean Corpuscular Hemoglobin 21 pg (25-35) Mean Corpuscular Hemoglobin Concent 30 g/dL (31-37) Red Cell Distribution Width 19.2 % (11.5-14.5) Platelet Count 296 x10^3/uL (140-400) Neutrophils (%) (Auto) 47 % (31-73) Lymphocytes (%) (Auto) 23 % (24-48) Monocytes (%) (Auto) 17 % (0-9) Eosinophils (%) (Auto) 11 % (0-3) Basophils (%) (Auto) 1 % (0-3) Neutrophils # (Auto) 2.6 x10^3uL (1.8-7.7) Lymphocytes # (Auto) 1.3 x10^3/uL (1.0-4.8) Monocytes # (Auto) 0.9 x10^3/uL (0.0-1.1) Eosinophils # (Auto) 0.6 x10^3/uL (0.0-0.7) Basophils # (Auto) 0.1 x10^3/uL (0.0-0.2) Platelet Estimate Adequate (ADEQUATE) Polychromasia Slight Anisocytosis Slight Microcytosis Present Ovalocytes Few Prothrombin Time 13.4 SEC (11.7-14.0) Prothromb Time International Ratio 1.1 (0.8-1.1) Sodium Level 146 mmol/L (136-145) Potassium Level 3.8 mmol/L (3.5-5.1) Chloride Level 105 mmol/L (98-107) Carbon Dioxide Level 37 mmol/L (21-32) Anion Gap 4 (6-14) Blood Urea Nitrogen 8 mg/dL (7-20) Creatinine 0.7 mg/dL (0.6-1.0) Estimated GFR (Cockcroft-Gault) 103.3 BUN/Creatinine Ratio 11 (6-20) Glucose Level 94 mg/dL (70-99) Calcium Level 8.7 mg/dL (8.5-10.1) Magnesium Level 2.0 mg/dL (1.8-2.4) Total Bilirubin 0.3 mg/dL (0.2-1.0) Aspartate Amino Transf (AST/SGOT) 19 U/L (15-37) Alanine Aminotransferase (ALT/SGPT) 25 U/L (14-59) Alkaline Phosphatase 64 U/L (46-116) Creatine Kinase 371 U/L (26-192) Creatine Kinase MB (Mass) 3.6 ng/mL (0.0-3.6) Creatine Kinase MB Relative Index 1.0 % (0-4) Troponin I Quantitative 0.048 ng/mL (0.000-0.055) WL-Jnz-[id number]-Type Natriuretic Peptide 413 pg/mL (0-124) Total Protein 6.8 g/dL (6.4-8.2) Albumin 3.6 g/dL (3.4-5.0) Albumin/Globulin Ratio 1.1 (1.0-1.7) Thyroid Stimulating Hormone (TSH) 0.791 uIU/mL (0.358-3.74) Influenza Type A Antigen Negative (NEGATIVE) Influenza Type B Antigen Negative (NEGATIVE) Images Images CTA of the chest with contrast, 08/23/2018: HISTORY: Shortness of breath Multidetector CT imaging was performed following an IV bolus injection of iodinated contrast material utilizing the pulmonary embolism protocol. Multiplanar reconstructions were produced including coronal and sagittal MIP images. The main pulmonary artery measures 2.6 cm in width. The right pulmonary artery is mildly prominent. No filling defects are seen in the central pulmonary arteries to suggest pulmonary emboli.There is moderate calcific plaquing of the thoracic aorta without evidence of aneurysm. Coronary artery calcifications are present. No mediastinal or hilar adenopathy is seen. No pulmonary infiltrate or mass is seen. There is no evidence of pleural fluid. IMPRESSION: No CT evidence of central pulmonary emboli. PQRS Compliance Statement: One or more of the following individualized dose reduction techniques were utilized for this examination: 1. Automated exposure control 2. Adjustment of the mA and/or kV according to patient size 3. Use of iterative reconstruction technique Electronically signed by: Jarrett Vanegas MD (08/23/2018 3:48 PM) [facility] VTE Prophylaxis Ordered VTE Prophylaxis Devices: No VTE Pharmacological Prophylaxi: Yes Assessment/Plan Assessment/Plan dyspnea, ACUTE COPD exacerbation chronic hypoxic and hypercapnic resp failure CAD with 1 stent at RCA accelerated HTN moribid obesity GERD previous smoker normocytic anemia pulmonary HTN wheezing/ bronchospasm plan: pulm consult doxy 100MG IV BID duoneb qid, albuterol prn solumedrol IV TAPER dvt, gi ppx cont home meds, on asa, plavix, lasix PTOT NC 2L. CORWIN FLOREZ MD Aug 23, 2018 21:00
[2018-08-23] MEDS ORDERED: DOCUSATE SODIUM 100 MG CAPSULE. PO PRN (21:15)
[2018-08-23] MEDS: methylPREDNISolone SOD SUCC PF 40 MG/ML VIAL. IV SCH (21:18)
[2018-08-23] MEDS: guaiFENesin DM 200MG/20MG 10 ML SYRUP PO PRN (21:24)
[2018-08-23] MEDS: FAMOTIDINE 20 MG TABLET. PO SCH (21:24)
[2018-08-23] MEDS: ENOXAPARIN 40 MG/0.4 ML SYRINGE. SQ SCH (21:26)
[2018-08-23] MEDS: MONTELUKAST SODIUM 10 MG TABLET. PO SCH (21:29)
[2018-08-23] MEDS: SERTRALINE 50 MG TABLET. PO SCH (21:29)
[2018-08-23] MEDS: FLUTICASONE 50MCG/NASAL SPRAY 16GM BOTTLE. NS SCH (21:30)
[2018-08-23 23:00] VITALS: BP 151/96
[2018-08-24] MEDS: guaiFENesin DM 200MG/20MG 10 ML SYRUP PO PRN (01:44)
[2018-08-24 03:00] VITALS: BP 149/93
[2018-08-24] MEDS: ALBUTEROL SULFATE 2.5 MG/3 ML NEBU. NEB PRN (04:22)
[2018-08-24] MEDS: methylPREDNISolone SOD SUCC PF 40 MG/ML VIAL. IV SCH ×3 (06:19→20:58)
[2018-08-24] MEDS: SODIUM CHL/ALOE VERA NASAL GEL 14.1GM TUBE. NS SCH ×4 (06:20→21:00)
[2018-08-24 07:00] VITALS: BP 123/89
[2018-08-24] MEDS: IPRATRPIUM/ALBUTEROL 0.5/2.5MG 3 ML NEBU. IH SCH ×4 (07:24→19:55)
[2018-08-24] MEDS: BUDESONIDE 0.5 MG/2 ML NEBU. NEB SCH ×2 (07:24→19:55)
[2018-08-24] MEDS ORDERED: PANTOPRAZOLE 40 MG TABLET.DR. PO SCH (07:30)
[2018-08-24] MEDS ORDERED: ALBUTEROL SULFATE 2.5 MG/3 ML NEBU. NEB SCH (08:00)
[2018-08-24 08:24] LABS: BASO % 0 % (0-3); EOS % 0 % (0-3); HEMOGLOBIN 8.2 g/dL (12.0-15.5); LYMPH # 0.7 x10^3/uL (1.0-4.8); LYMPH % 14 % (24-48); MEAN CORPUSCULAR HEMOGLOBIN 21 pg (25-35); MEAN CORPUSCULAR HGB CONC 29 g/dL (31-37); MEAN CORPUSCULAR VOLUME 70 fL (79-100); MONO # 0.2 x10^3/uL (0.0-1.1); MONO % 4 % (0-9); NEUT # 4.2 x10^3uL (1.8-7.7); NEUT % 82 % (31-73); PLATELET COUNT 304 x10^3/uL (140-400); RED BLOOD COUNT 4.01 x10^6/uL (3.50-5.40); RED CELL DISTRIBUTION WIDTH 19.2 % (11.5-14.5); WHITE BLOOD COUNT 5.2 x10^3/uL (4.0-11.0)
[2018-08-24 08:32] LABS: ALBUMIN 3.8 g/dL (3.4-5.0); ALBUMIN/GLOBULIN RATIO 1.1 (1.0-1.7); CALCIUM 8.9 mg/dL (8.5-10.1); CREATININE 0.8 mg/dL (0.6-1.0); GFR 88.5; POTASSIUM 4.2 mmol/L (3.5-5.1); TOTAL BILIRUBIN 0.3 mg/dL (0.2-1.0); TOTAL PROTEIN 7.4 g/dL (6.4-8.2)
[2018-08-24] MEDS ORDERED: NON FORMULARY ITEM (Budesonide/Formoterol Fumarate (Symbicort 160-4.5 Mcg Inhaler) 10.2 GM IH SCH (09:00)
[2018-08-24] MEDS ORDERED: DOXYCYCLINE HYCLATE 100 MG in IV DEXTROSE 5% 100ML 100 ML IV SCH (09:00)
--- NOTE | 2018-08-24 09:07 | NUR ---
SW following for discharge planning. Discussed with RN, pt is from home. On IV steroids currently. RN advised no SW needs at this time. SW will continue to follow.
[2018-08-24] MEDS: FAMOTIDINE 20 MG TABLET. PO SCH (09:13)
[2018-08-24] MEDS: ASPIRIN ENTERIC COATED 81 MG TABLET.DR. PO SCH (09:13)
[2018-08-24] MEDS: LACTOBACILLUS RHAMNOSUS GG 1 CAPSULE. PO SCH ×2 (09:13→20:57)
[2018-08-24] MEDS: CLOPIDOGREL BISULFATE 75 MG TABLET PO SCH (09:13)
[2018-08-24] MEDS: POTASSIUM CHLORIDE 10 MEQ TABLET.ER. PO SCH (09:13)
[2018-08-24] MEDS: ROFLUMILAST 500 MCG TABLET. PO SCH (09:37)
[2018-08-24] MEDS ORDERED: DEXTROSE 50% 25 GM / 50ML DISP.SYRIN. IV PRN (10:30)
--- NOTE | 2018-08-24 10:33 | PDOC ---
PROGRESS NOTES Chief Complaint Chief Complaint dyspnea, ACUTE COPD exacerbation chronic hypoxic and hypercapnic resp failure CAD with 1 stent at RCA accelerated HTN moribid obesity GERD previous smoker normocytic anemia pulmonary HTN wheezing/ bronchospasm History of Present Illness History of Present Illness plan: pulm consult doxy to PO she refused PT and OT taper steroids as able she wants regular diet, refused to eat heart healthy, will add SSI abd pain, add PRN stomach meds Vitals Vitals Vital Signs Date Time Temp Pulse Resp B/P (MAP) Pulse Ox O2 Delivery O2 Flow Rate FiO2 08/24/18 07:22 95 Nasal Cannula 2.0 08/24/18 07:00 98.8 86 18 123/89 (100) 98.8 Physical Exam General: Alert, Oriented X3, Cooperative, moderate distress Lungs: Clear, Other Abdomen: Soft Extremities: No cyanosis Skin: No breakdown Labs LABS Laboratory Tests Test 08/23/18 12:17 08/23/18 12:45 08/24/18 07:35 White Blood Count 5.4 x10^3/uL (4.0-11.0) 5.2 x10^3/uL (4.0-11.0) Red Blood Count 3.92 x10^6/uL (3.50-5.40) 4.01 x10^6/uL (3.50-5.40) Hemoglobin 8.1 g/dL (12.0-15.5) 8.2 g/dL (12.0-15.5) Hematocrit 27.4 % (36.0-47.0) 28.0 % (36.0-47.0) Mean Corpuscular Volume 70 fL (79-100) 70 fL (79-100) Mean Corpuscular Hemoglobin 21 pg (25-35) 21 pg (25-35) Mean Corpuscular Hemoglobin Concent 30 g/dL (31-37) 29 g/dL (31-37) Red Cell Distribution Width 19.2 % (11.5-14.5) 19.2 % (11.5-14.5) Platelet Count 296 x10^3/uL (140-400) 304 x10^3/uL (140-400) Neutrophils (%) (Auto) 47 % (31-73) 82 % (31-73) Lymphocytes (%) (Auto) 23 % (24-48) 14 % (24-48) Monocytes (%) (Auto) 17 % (0-9) 4 % (0-9) Eosinophils (%) (Auto) 11 % (0-3) 0 % (0-3) Basophils (%) (Auto) 1 % (0-3) 0 % (0-3) Neutrophils # (Auto) 2.6 x10^3uL (1.8-7.7) 4.2 x10^3uL (1.8-7.7) Lymphocytes # (Auto) 1.3 x10^3/uL (1.0-4.8) 0.7 x10^3/uL (1.0-4.8) Monocytes # (Auto) 0.9 x10^3/uL (0.0-1.1) 0.2 x10^3/uL (0.0-1.1) Eosinophils # (Auto) 0.6 x10^3/uL (0.0-0.7) 0.0 x10^3/uL (0.0-0.7) Basophils # (Auto) 0.1 x10^3/uL (0.0-0.2) 0.0 x10^3/uL (0.0-0.2) Platelet Estimate Adequate (ADEQUATE) Polychromasia Slight Anisocytosis Slight Microcytosis Present Ovalocytes Few Prothrombin Time 13.4 SEC (11.7-14.0) Prothromb Time International Ratio 1.1 (0.8-1.1) Sodium Level 146 mmol/L (136-145) 143 mmol/L (136-145) Potassium Level 3.8 mmol/L (3.5-5.1) 4.2 mmol/L (3.5-5.1) Chloride Level 105 mmol/L (98-107) 103 mmol/L (98-107) Carbon Dioxide Level 37 mmol/L (21-32) 34 mmol/L (21-32) Anion Gap 4 (6-14) 6 (6-14) Blood Urea Nitrogen 8 mg/dL (7-20) 18 mg/dL (7-20) Creatinine 0.7 mg/dL (0.6-1.0) 0.8 mg/dL (0.6-1.0) Estimated GFR (Cockcroft-Gault) 103.3 88.5 BUN/Creatinine Ratio 11 (6-20) 23 (6-20) Glucose Level 94 mg/dL (70-99) 142 mg/dL (70-99) Calcium Level 8.7 mg/dL (8.5-10.1) 8.9 mg/dL (8.5-10.1) Magnesium Level 2.0 mg/dL (1.8-2.4) Total Bilirubin 0.3 mg/dL (0.2-1.0) 0.3 mg/dL (0.2-1.0) Aspartate Amino Transf (AST/SGOT) 19 U/L (15-37) 18 U/L (15-37) Alanine Aminotransferase (ALT/SGPT) 25 U/L (14-59) 27 U/L (14-59) Alkaline Phosphatase 64 U/L (46-116) 69 U/L (46-116) Creatine Kinase 371 U/L (26-192) Creatine Kinase MB (Mass) 3.6 ng/mL (0.0-3.6) Creatine Kinase MB Relative Index 1.0 % (0-4) Troponin I Quantitative 0.048 ng/mL (0.000-0.055) YW-Dhf-W-Type Natriuretic Peptide 413 pg/mL (0-124) Total Protein 6.8 g/dL (6.4-8.2) 7.4 g/dL (6.4-8.2) Albumin 3.6 g/dL (3.4-5.0) 3.8 g/dL (3.4-5.0) Albumin/Globulin Ratio 1.1 (1.0-1.7) 1.1 (1.0-1.7) Thyroid Stimulating Hormone (TSH) 0.791 uIU/mL (0.358-3.74) Influenza Type A Antigen Negative (NEGATIVE) Influenza Type B Antigen Negative (NEGATIVE) Review of Systems Review of Systems no n.., abd pain after eating, cough, sputum, weakness, dydspne,a chest pain under ribs, not pleuritic Comment Review of Relevant I have reviewed the following items paulette (where applicable) has been applied. Labs Laboratory Tests Test 08/23/18 12:17 08/23/18 12:45 08/24/18 07:35 White Blood Count 5.4 x10^3/uL (4.0-11.0) 5.2 x10^3/uL (4.0-11.0) Red Blood Count 3.92 x10^6/uL (3.50-5.40) 4.01 x10^6/uL (3.50-5.40) Hemoglobin 8.1 g/dL (12.0-15.5) 8.2 g/dL (12.0-15.5) Hematocrit 27.4 % (36.0-47.0) 28.0 % (36.0-47.0) Mean Corpuscular Volume 70 fL (79-100) 70 fL (79-100) Mean Corpuscular Hemoglobin 21 pg (25-35) 21 pg (25-35) Mean Corpuscular Hemoglobin Concent 30 g/dL (31-37) 29 g/dL (31-37) Red Cell Distribution Width 19.2 % (11.5-14.5) 19.2 % (11.5-14.5) Platelet Count 296 x10^3/uL (140-400) 304 x10^3/uL (140-400) Neutrophils (%) (Auto) 47 % (31-73) 82 % (31-73) Lymphocytes (%) (Auto) 23 % (24-48) 14 % (24-48) Monocytes (%) (Auto) 17 % (0-9) 4 % (0-9) Eosinophils (%) (Auto) 11 % (0-3) 0 % (0-3) Basophils (%) (Auto) 1 % (0-3) 0 % (0-3) Neutrophils # (Auto) 2.6 x10^3uL (1.8-7.7) 4.2 x10^3uL (1.8-7.7) Lymphocytes # (Auto) 1.3 x10^3/uL (1.0-4.8) 0.7 x10^3/uL (1.0-4.8) Monocytes # (Auto) 0.9 x10^3/uL (0.0-1.1) 0.2 x10^3/uL (0.0-1.1) Eosinophils # (Auto) 0.6 x10^3/uL (0.0-0.7) 0.0 x10^3/uL (0.0-0.7) Basophils # (Auto) 0.1 x10^3/uL (0.0-0.2) 0.0 x10^3/uL (0.0-0.2) Platelet Estimate Adequate (ADEQUATE) Polychromasia Slight Anisocytosis Slight Microcytosis Present Ovalocytes Few Prothrombin Time 13.4 SEC (11.7-14.0) Prothromb Time International Ratio 1.1 (0.8-1.1) Sodium Level 146 mmol/L (136-145) 143 mmol/L (136-145) Potassium Level 3.8 mmol/L (3.5-5.1) 4.2 mmol/L (3.5-5.1) Chloride Level 105 mmol/L (98-107) 103 mmol/L (98-107) Carbon Dioxide Level 37 mmol/L (21-32) 34 mmol/L (21-32) Anion Gap 4 (6-14) 6 (6-14) Blood Urea Nitrogen 8 mg/dL (7-20) 18 mg/dL (7-20) Creatinine 0.7 mg/dL (0.6-1.0) 0.8 mg/dL (0.6-1.0) Estimated GFR (Cockcroft-Gault) 103.3 88.5 BUN/Creatinine Ratio 11 (6-20) 23 (6-20) Glucose Level 94 mg/dL (70-99) 142 mg/dL (70-99) Calcium Level 8.7 mg/dL (8.5-10.1) 8.9 mg/dL (8.5-10.1) Magnesium Level 2.0 mg/dL (1.8-2.4) Total Bilirubin 0.3 mg/dL (0.2-1.0) 0.3 mg/dL (0.2-1.0) Aspartate Amino Transf (AST/SGOT) 19 U/L (15-37) 18 U/L (15-37) Alanine Aminotransferase (ALT/SGPT) 25 U/L (14-59) 27 U/L (14-59) Alkaline Phosphatase 64 U/L (46-116) 69 U/L (46-116) Creatine Kinase 371 U/L (26-192) Creatine Kinase MB (Mass) 3.6 ng/mL (0.0-3.6) Creatine Kinase MB Relative Index 1.0 % (0-4) Troponin I Quantitative 0.048 ng/mL (0.000-0.055) AG-Woy-B-Type Natriuretic Peptide 413 pg/mL (0-124) Total Protein 6.8 g/dL (6.4-8.2) 7.4 g/dL (6.4-8.2) Albumin 3.6 g/dL (3.4-5.0) 3.8 g/dL (3.4-5.0) Albumin/Globulin Ratio 1.1 (1.0-1.7) 1.1 (1.0-1.7) Thyroid Stimulating Hormone (TSH) 0.791 uIU/mL (0.358-3.74) Influenza Type A Antigen Negative (NEGATIVE) Influenza Type B Antigen Negative (NEGATIVE) Laboratory Tests Test 08/23/18 12:17 08/23/18 12:45 08/24/18 07:35 White Blood Count 5.4 x10^3/uL (4.0-11.0) 5.2 x10^3/uL (4.0-11.0) Red Blood Count 3.92 x10^6/uL (3.50-5.40) 4.01 x10^6/uL (3.50-5.40) Hemoglobin 8.1 g/dL (12.0-15.5) 8.2 g/dL (12.0-15.5) Hematocrit 27.4 % (36.0-47.0) 28.0 % (36.0-47.0) Mean Corpuscular Volume 70 fL (79-100) 70 fL (79-100) Mean Corpuscular Hemoglobin 21 pg (25-35) 21 pg (25-35) Mean Corpuscular Hemoglobin Concent 30 g/dL (31-37) 29 g/dL (31-37) Red Cell Distribution Width 19.2 % (11.5-14.5) 19.2 % (11.5-14.5) Platelet Count 296 x10^3/uL (140-400) 304 x10^3/uL (140-400) Neutrophils (%) (Auto) 47 % (31-73) 82 % (31-73) Lymphocytes (%) (Auto) 23 % (24-48) 14 % (24-48) Monocytes (%) (Auto) 17 % (0-9) 4 % (0-9) Eosinophils (%) (Auto) 11 % (0-3) 0 % (0-3) Basophils (%) (Auto) 1 % (0-3) 0 % (0-3) Neutrophils # (Auto) 2.6 x10^3uL (1.8-7.7) 4.2 x10^3uL (1.8-7.7) Lymphocytes # (Auto) 1.3 x10^3/uL (1.0-4.8) 0.7 x10^3/uL (1.0-4.8) Monocytes # (Auto) 0.9 x10^3/uL (0.0-1.1) 0.2 x10^3/uL (0.0-1.1) Eosinophils # (Auto) 0.6 x10^3/uL (0.0-0.7) 0.0 x10^3/uL (0.0-0.7) Basophils # (Auto) 0.1 x10^3/uL (0.0-0.2) 0.0 x10^3/uL (0.0-0.2) Platelet Estimate Adequate (ADEQUATE) Polychromasia Slight Anisocytosis Slight Microcytosis Present Ovalocytes Few Prothrombin Time 13.4 SEC (11.7-14.0) Prothromb Time International Ratio 1.1 (0.8-1.1) Sodium Level 146 mmol/L (136-145) 143 mmol/L (136-145) Potassium Level 3.8 mmol/L (3.5-5.1) 4.2 mmol/L (3.5-5.1) Chloride Level 105 mmol/L (98-107) 103 mmol/L (98-107) Carbon Dioxide Level 37 mmol/L (21-32) 34 mmol/L (21-32) Anion Gap 4 (6-14) 6 (6-14) Blood Urea Nitrogen 8 mg/dL (7-20) 18 mg/dL (7-20) Creatinine 0.7 mg/dL (0.6-1.0) 0.8 mg/dL (0.6-1.0) Estimated GFR (Cockcroft-Gault) 103.3 88.5 BUN/Creatinine Ratio 11 (6-20) 23 (6-20) Glucose Level 94 mg/dL (70-99) 142 mg/dL (70-99) Calcium Level 8.7 mg/dL (8.5-10.1) 8.9 mg/dL (8.5-10.1) Magnesium Level 2.0 mg/dL (1.8-2.4) Total Bilirubin 0.3 mg/dL (0.2-1.0) 0.3 mg/dL (0.2-1.0) Aspartate Amino Transf (AST/SGOT) 19 U/L (15-37) 18 U/L (15-37) Alanine Aminotransferase (ALT/SGPT) 25 U/L (14-59) 27 U/L (14-59) Alkaline Phosphatase 64 U/L (46-116) 69 U/L (46-116) Creatine Kinase 371 U/L (26-192) Creatine Kinase MB (Mass) 3.6 ng/mL (0.0-3.6) Creatine Kinase MB Relative Index 1.0 % (0-4) Troponin I Quantitative 0.048 ng/mL (0.000-0.055) YK-Ttd-V-Type Natriuretic Peptide 413 pg/mL (0-124) Total Protein 6.8 g/dL (6.4-8.2) 7.4 g/dL (6.4-8.2) Albumin 3.6 g/dL (3.4-5.0) 3.8 g/dL (3.4-5.0) Albumin/Globulin Ratio 1.1 (1.0-1.7) 1.1 (1.0-1.7) Thyroid Stimulating Hormone (TSH) 0.791 uIU/mL (0.358-3.74) Influenza Type A Antigen Negative (NEGATIVE) Influenza Type B Antigen Negative (NEGATIVE) Medications Current Medications Albuterol/ Ipratropium (Duoneb) 3 ml 1X ONCE NEB Last administered on at 12:35; Start 08/23/18 at 12:30; Stop 08/23/18 at 12:31; Status DC Methylprednisolone Sodium Succinate (SOLU-Medrol 125MG VIAL) 125 mg 1X ONCE IV Last administered on 08/23/18at 12:38; Start 08/23/18 at 12:30; Stop 08/23/18 at 12:31; Status DC Iohexol (Omnipaque 350 Mg/ml) 90 ml 1X ONCE IV Last administered on 08/23/18at 15:23; Start 08/23/18 at 15:15; Stop 08/23/18 at 15:16; Status DC Info (CONTRAST GIVEN -- Rx MONITORING) 1 each PRN DAILY PRN MC SEE COMMENTS; Start 08/23/18 at 15:15; Stop 08/25/18 at 15:14 Ondansetron HCl (Zofran) 4 mg PRN Q8HRS PRN IV NAUSEA/VOMITING; Start 08/23/18 at 15:45; Stop 08/24/18 at 15:44 Fentanyl Citrate (Fentanyl 2ml Vial) 50 mcg PRN Q1HR PRN IV PAIN; Start at 15:45; Stop 08/24/18 at 15:44 Acetaminophen (Tylenol) 650 mg PRN Q4HRS PRN PO FEVER Last administered on 08/24at 01:44; Start 08/23/18 at 15:45; Stop 08/24/18 at 15:44 Albuterol/ Ipratropium (Duoneb) 3 ml RTQID NEB Last administered on 08/23/18 19:35; Start 08/23/18 at 16:00; Stop 08/23/18 at 21:19; Status DC Methylprednisolone Sodium Succinate (SOLU-Medrol 40MG VIAL) 40 mg Q8HRS IV Last administered on 08/24/18 06:19; Start 08/23/18 at 22:00 Aspirin (Ecotrin) 81 mg DAILYWBKFT PO Last administered on 08/24/18 09:13; Start 08/24/18 at 08:00 Clopidogrel Bisulfate (Plavix) 75 mg DAILY PO Last administered on 08/24/18 09 :13; Start 08/24/18 at 09:00 Docusate Sodium (Colace) 100 mg PRN DAILY PRN PO CONSTIPATION Last administered on 08/23/18 21:25; Start 08/23/18 at 21:15 Famotidine (Pepcid) 20 mg BID PO Last administered on 08/24/18 09:13; Start at 21:30 Furosemide (Lasix) 20 mg DAILY16 PO ; Start 08/24/18 at 16:00 Guaifenesin (Mucinex) 600 mg DAILY PO Last administered on 08/24/18 09:18; Start 08/24/18 at 09:00 Guaifenesin (Robitussin Dm) 10 ml PRN Q6HRS PRN PO COUGH Last administered on 01:44; Start 08/23/18 at 21:15 Albuterol/ Ipratropium (Duoneb) 3 ml RTQID IH Last administered on 08/24/18 07 :24; Start 08/24/18 at 08:00 Lactobacillus Rhamnosus (Culturelle) 1 cap BID PO Last administered on 09:13; Start 08/24/18 at 09:00 Potassium Chloride (Klor-Con) 10 meq DAILYWBKFT PO Last administered on 09:13; Start 08/24/18 at 08:00 Sertraline HCl (Zoloft) 50 mg HS PO Last administered on 08/23/18 21:29; Start 08/23/18 at 21:30 Sodium Chloride ([place] Saline Nasal) 1 delilah [id number] NS ; Start 08/24/18 at 07:00 Non-Formulary Medication (Budesonide/ Formoterol Fumarate (Symbicort 160-4.5 Mcg Inhaler)) 10.2 gm BID IH ; Start 08/24/18 at 09:00; Status UNV Pantoprazole Sodium (Protonix) 40 mg DAILYAC PO Last administered on 08/24/18 06:19; Start 08/24/18 at 07:30 Fluticasone Propionate (Flonase) 2 spray BID NS ; Start 08/23/18 at 21:30 Montelukast Sodium (Singulair) 10 mg HS PO Last administered on 08/23/18 21:29 ; Start 08/23/18 at 21:30 Roflumilast (Daliresp) 500 mcg DAILY PO Last administered on 08/24/18 09:37; Start 08/24/18 at 09:00 Doxycycline Hyclate 100 mg/ Dextrose 100 ml @ 50 mls/hr Q12HR IV Last administered on 08/24/18 09:14; Start 08/24/18 at 09:00 Enoxaparin Sodium (Lovenox 40mg Syringe) 40 mg Q24H SQ Last administered on 06/01at 21:26; Start 08/23/18 at 21:30 Budesonide (Pulmicort) 0.5 mg RTBID NEB Last administered on 08/24/18at 07:24; Start 08/24/18 at 08:00 Albuterol Sulfate (Ventolin Neb Soln) 2.5 mg RTQID NEB ; Start 08/24/18 at 08:00 ; Status UNV Albuterol Sulfate (Ventolin Neb Soln) 2.5 mg PRN Q2HRS PRN NEB SHORTNESS OF BREATH Last administered on 08/24/18at 04:22; Start 08/24/18 at 02:00 Active Scripts Active Colace (Docusate Sodium) 100 Mg Capsule 100 Mg PO PRN DAILY PRN 30 Days Azithromycin Tablet (Azithromycin) 250 Mg Tablet 250 Mg PO DAILY 7 Days Famotidine 20 Mg Tablet 20 Mg PO BID 30 Days Culturelle (Lactobacillus Rhamnosus Gg) 1 Each Cap.sprink 1 Cap PO BID 14 Days Prednisone (Prednisone) 10 Mg Tablet 30 Mg PO DAILY 14 Days [place] Saline Nasal Gel (Sodium Chloride/Aloe Vera) 14.1 Gm Gel..gram. 1 Delilah NS [id number] 14 Days Daliresp (Roflumilast) 500 Mcg Tablet 500 Mcg PO DAILY 30 Days Guaifenesin Dm Syrup (Guaifenesin/Dextromethorphan) 5 Ml Syrup 10 Ml PO PRN Q6HRS PRN 30 Days Azithromycin Packet (Azithromycin) 1 Gm Packet 1 Packet PO ONCE Potassium Chloride 10 Meq Capsule.er 1 Cap PO DAILY Reported Flonase Allergy Relief (Fluticasone Propionate) 9.9 Ml Cook.susp 2 Sprays NS BID Zoloft (Sertraline Hcl) 50 Mg Tablet 1 Tab PO HS Clopidogrel (Clopidogrel Bisulfate) 75 Mg Tablet 1 Tab PO DAILY Guaifenesin 600 Mg Tablet.er 600 Mg PO DAILY Nexium Capsule (Esomeprazole Magnesium) 40 Mg Capsule.dr 40 Mg PO DAILYAC Singulair Tablet (Montelukast Sodium) 10 Mg Tablet 1 Tab PO HS Lasix (Furosemide) 20 Mg Tablet 1 Tab PO DAILY16 Symbicort 160-4.5 Mcg Inhaler (Budesonide/Formoterol Fumarate) 10.2 Gm Hfa.aer.ad 10.2 Gm IH BID Albuterol Sulfate Hfa Inhaler (Albuterol Sulfate) 8.5 Gm Hfa.aer.ad 8.5 Gm IH PRN Duoneb 0.5 Mg-3 Mg/3 Ml Soln (Ipratropium/Albuterol Sulfate) 3 Ml Ampul.neb 3 Ml IH QID Aspir 81 (Aspirin) 81 Mg Tablet.dr 81 Mg PO DAILY Vitals/I & O Vital Sign - Last 24 Hours 08/23/18 08/23/18 08/23/18 08/23/18 11:43 11:51 12:21 12:36 Temp 98.6 98.6 Pulse 98 102 86 Resp 24 B/P (MAP) 173/104 (127) 173/104 (127) 159/81 (107) Pulse Ox 97 97 98 O2 Delivery Nasal Cannula Nasal Cannula Nasal Cannula Nasal Cannula O2 Flow Rate 2.0 2.0 2.0 2.0 08/23/18 08/23/18 08/23/18 08/23/18 12:45 13:15 14:15 15:54 Pulse 91 80 86 B/P (MAP) 144/89 (107) 135/80 (98) 155/77 (103) Pulse Ox 100 100 96 92 O2 Delivery Nasal Cannula Nasal Cannula Nasal Cannula Nasal Cannula O2 Flow Rate 2.0 2.0 2.0 2.0 08/23/18 08/23/18 08/23/18 08/23/18 17:31 19:00 19:33 19:36 Temp 97.9 97.8 97.9 97.8 Pulse 105 18 Resp 18 18 B/P (MAP) 150/94 (112) 149/90 (109) Pulse Ox 93 93 92 O2 Delivery Nasal Cannula Nasal Cannula Nasal Cannula O2 Flow Rate 2.0 2.0 2.0 08/23/18 08/24/18 08/24/18 08/24/18 23:00 03:00 04:22 07:00 Temp 99.2 98.3 98.8 99.2 98.3 98.8 Pulse 109 102 86 Resp 20 22 18 B/P (MAP) 151/96 (114) 149/93 (111) 123/89 (100) Pulse Ox 92 93 95 O2 Delivery Nasal Cannula Nasal Cannula O2 Flow Rate 2.0 2.0 08/24/18 07:22 Pulse Ox 95 O2 Delivery Nasal Cannula O2 Flow Rate 2.0 Intake and Output 08/23/18 08/23/18 08/24/18 14:59 22:59 06:59 Intake Total 480 ml 480 ml Output Total 600 ml Balance -120 ml 480 ml ROSEMARY VAUGHN MD Aug 24, 2018 10:33
[2018-08-24] MEDS ORDERED: CALCIUM CARBONATE 500 MG TAB.CHEW PO PRN (10:45)
[2018-08-24] MEDS ORDERED: LIDO:MAALOX 1:1 20 ML SINGLE DOSE. PO PRN (10:45)
[2018-08-24 10:47] VITALS: BP 165/80
[2018-08-24] MEDS: INSULIN LISPRO 300 UNITS/3 ML INSULN.PEN. SQ SCH ×2 (12:00→17:00)
--- NOTE | 2018-08-24 12:34 | CONS ---
DATE OF CONSULTATION: REFERRING PHYSICIAN: Dr. Grajeda. REASON FOR CONSULTATION: Dyspnea. HISTORY OF PRESENT ILLNESS: The patient is very well known to us. She is a 58-year-old who has severe COPD, which is oxygen dependent. She came into the hospital with increased shortness of breath. She has a cough, postnasal drainage. She has diffuse myalgias. No fever, no chills. No headaches, no nausea or vomiting, no diarrhea, no dysuria. No focal weakness. No lower extremity edema. The patient underwent CTA chest. There was no evidence of any pulmonary emboli. She has prominent right pulmonary artery consistent with pulmonary hypertension. No significant adenopathy seen. No infiltrates seen. PAST MEDICAL HISTORY: Significant for end-stage COPD and chronic respiratory failure. PAST SURGICAL HISTORY: Hysterectomy, tonsillectomy, previous cardiac catheterization, laparoscopy. ALLERGIES: PENICILLIN and MORPHINE. SOCIAL HISTORY: Smoked for about 35 years before quitting. FAMILY HISTORY: Noncontributory to lungs. MEDICATIONS: All reviewed, as listed in the MRAD, including antibiotic doxycycline. She is on Daliresp along with bronchodilators and IV steroids. PHYSICAL EXAMINATION: VITAL SIGNS: Reviewed. Blood pressure on the high side, afebrile, pulse ox 95% on 2 liters. NECK: Supple. LUNGS: With occasional wheezes. CARDIOVASCULAR: Regular rate. ABDOMEN: Soft. EXTREMITIES: With no pitting edema. LABORATORY DATA: Reviewed. Sodium 143, potassium 4.2. White cell count 5.2, hemoglobin 8.2. IMPRESSION: 1. Dyspnea secondary to acute exacerbation of chronic obstructive pulmonary disease. 2. Acute bronchitis. 3. No evidence of any pulmonary embolism or pneumonia based on the CT chest. 4. Postnasal drainage. 5. Chronic hypoxic respiratory failure. RECOMMENDATIONS: 1. Continue with present antibiotics. 2. Continue with DuoNebs and Pulmicort. 3. IV steroids. 4. Continue with Daliresp. 5. Flonase for postnasal drainage. 6. We will follow along with you. TRACEE PIZARRO MD DR: MAURO/franklin JOB#: [id number] / [id number]
--- NOTE | 2018-08-24 13:27 | PDOC2 ---
GI CONSULT Reason For Consult: Abd pain, GERD, microcytic anemia HPI: HPI: 58 y/o female admitted w/ COPD exacerbation. GI asked to see for microcytic anemia - iron deficient in 04/2018. Reports increased SOA w/ coughing w/ exertion, also some discomfort under her ribs w/ walking and sometimes after eating. Has gained weight. 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 Denies dysphagia, n/v, diarrhea, constipation, hematemesis, hematochezia, and melena. Says she just saw Dr. Benavides on Wednesday and another test was recommended. GI history includes barium swallow w/ tertiary contractions and reflux, h/o diverticulitis, normal PIPIDA in 2011, normal UGI/SBS in 2012, normal GB and liver on US in 2014, patent celiac and SMA on CTA in 2015, normal 4 hr GES in 2018. EGD in [address] Luis Gallagher: grade 1 reflux esophagitis, H.pylori positive gastritis, and normal duodenum. She completed treatment for H. pylori. Colonoscopy [place] [address] Petty Coffey: mild nonspecific erythema (biopsies unrevealing), advanced diverticular disease, adenomatous polyp, and hyperplastic polyp. Takes prednisone off and on, B12, diclofenac QD, ASA QD, and Plavix QD. B12 WNL in 2018. PMH: PMH: CAD w/ stent, HTN, COPD (on home O2), pneumonia, SHANEL, GERD, diverticulitis, colon polyp tonsillectomy, hysterectomy FH: Family History: No pertinent hx Social History: Smoke: Quit ALCOHOL: none Drugs: None ROS: GEN: Denies fevers, chills, sweats HEENT: Denies blurred vision, sore throat CV: Denies chest pain RESP: +SOA +cough GI: Per HPI : Denies hematuria, dysuria ENDO: +weight gain NEURO: Denies confusion, dizziness MSK: Denies weakness, joint pain/swelling SKIN: Denies jaundice, pruritus Vitals: Vitals: Vital Signs Date Time Temp Pulse Resp B/P (MAP) Pulse Ox O2 Delivery O2 Flow Rate FiO2 08/24/18 11:47 14 95 Nasal Cannula 2.0 08/24/18 10:47 98.2 101 165/80 (108) 98.2 Labs: Labs: Laboratory Tests Test 08/24/18 07:35 08/24/18 11:30 White Blood Count 5.2 x10^3/uL (4.0-11.0) Red Blood Count 4.01 x10^6/uL (3.50-5.40) Hemoglobin 8.2 g/dL (12.0-15.5) Hematocrit 28.0 % (36.0-47.0) Mean Corpuscular Volume 70 fL (79-100) Mean Corpuscular Hemoglobin 21 pg (25-35) Mean Corpuscular Hemoglobin Concent 29 g/dL (31-37) Red Cell Distribution Width 19.2 % (11.5-14.5) Platelet Count 304 x10^3/uL (140-400) Neutrophils (%) (Auto) 82 % (31-73) Lymphocytes (%) (Auto) 14 % (24-48) Monocytes (%) (Auto) 4 % (0-9) Eosinophils (%) (Auto) 0 % (0-3) Basophils (%) (Auto) 0 % (0-3) Neutrophils # (Auto) 4.2 x10^3uL (1.8-7.7) Lymphocytes # (Auto) 0.7 x10^3/uL (1.0-4.8) Monocytes # (Auto) 0.2 x10^3/uL (0.0-1.1) Eosinophils # (Auto) 0.0 x10^3/uL (0.0-0.7) Basophils # (Auto) 0.0 x10^3/uL (0.0-0.2) Sodium Level 143 mmol/L (136-145) Potassium Level 4.2 mmol/L (3.5-5.1) Chloride Level 103 mmol/L (98-107) Carbon Dioxide Level 34 mmol/L (21-32) Anion Gap 6 (6-14) Blood Urea Nitrogen 18 mg/dL (7-20) Creatinine 0.8 mg/dL (0.6-1.0) Estimated GFR (Cockcroft-Gault) 88.5 BUN/Creatinine Ratio 23 (6-20) Glucose Level 142 mg/dL (70-99) Calcium Level 8.9 mg/dL (8.5-10.1) Total Bilirubin 0.3 mg/dL (0.2-1.0) Aspartate Amino Transf (AST/SGOT) 18 U/L (15-37) Alanine Aminotransferase (ALT/SGPT) 27 U/L (14-59) Alkaline Phosphatase 69 U/L (46-116) Total Protein 7.4 g/dL (6.4-8.2) Albumin 3.8 g/dL (3.4-5.0) Albumin/Globulin Ratio 1.1 (1.0-1.7) Glucose (Fingerstick) 109 mg/dL (70-99) Allergies: Coded Allergies: Penicillins (Verified Allergy, Intermediate, rash, 03/03/16) morphine (Verified Allergy, Intermediate, Rash-PERCOCET OK, 03/03/16) benzonatate (Verified Adverse Reaction, Intermediate, Itching, 05/14/18) Medications: Current Medications Medications (Trade) Dose Ordered Sig/Umang Route PRN Reason Start Time Stop Time Status Last Admin Dose Admin Iohexol (Omnipaque 350 Mg/ml) 90 ml 1X ONCE IV 08/23/18 15:15 08/23/18 15:16 DC 08/23/18 15:23 Fentanyl Citrate (Fentanyl 2ml Vial) 50 mcg PRN Q1HR PRN IV PAIN 08/23/18 15:45 08/24/18 15:44 08/24/18 11:47 Acetaminophen (Tylenol) 650 mg PRN Q4HRS PRN PO FEVER 08/23/18 15:45 08/24/18 15:44 08/24/18 01:44 Albuterol/ Ipratropium (Duoneb) 3 ml RTQID NEB 08/23/18 16:00 08/23/18 21:19 DC 08/23/18 19:35 Methylprednisolone Sodium Succinate (SOLU-Medrol 40MG VIAL) 40 mg Q8HRS IV 08/23/18 22:00 08/24/18 06:19 Aspirin (Ecotrin) 81 mg DAILYWBKFT PO 08/24/18 08:00 08/24/18 09:13 Clopidogrel Bisulfate (Plavix) 75 mg DAILY PO 08/24/18 09:00 08/24/18 09:13 Docusate Sodium (Colace) 100 mg PRN DAILY PRN PO CONSTIPATION 08/23/18 21:15 08/23/18 21:25 Famotidine (Pepcid) 20 mg BID PO 08/23/18 21:30 08/24/18 09:13 Guaifenesin (Mucinex) 600 mg DAILY PO 08/24/18 09:00 08/24/18 09:18 Guaifenesin (Robitussin Dm) 10 ml PRN Q6HRS PRN PO COUGH 08/23/18 21:15 08/24/18 01:44 Albuterol/ Ipratropium (Duoneb) 3 ml RTQID IH 08/24/18 08:00 08/24/18 11:45 Lactobacillus Rhamnosus (Culturelle) 1 cap BID PO 08/24/18 09:00 08/24/18 09:13 Potassium Chloride (Klor-Con) 10 meq DAILYWBKFT PO 08/24/18 08:00 08/24/18 09:13 Sertraline HCl (Zoloft) 50 mg HS PO 08/23/18 21:30 08/23/18 21:29 Pantoprazole Sodium (Protonix) 40 mg DAILYAC PO 08/24/18 07:30 08/24/18 06:19 Montelukast Sodium (Singulair) 10 mg HS PO 08/23/18 21:30 08/23/18 21:29 Roflumilast (Daliresp) 500 mcg DAILY PO 08/24/18 09:00 08/24/18 09:37 Doxycycline Hyclate 100 mg/ Dextrose 100 ml @ 50 mls/hr Q12HR IV 08/24/18 09:00 08/24/18 10:22 DC 08/24/18 09:14 Enoxaparin Sodium (Lovenox 40mg Syringe) 40 mg Q24H SQ 08/23/18 21:30 08/23/18 21:26 Budesonide (Pulmicort) 0.5 mg RTBID NEB 08/24/18 08:00 08/24/18 07:24 Albuterol Sulfate (Ventolin Neb Soln) 2.5 mg PRN Q2HRS PRN NEB SHORTNESS OF BREATH 08/24/18 02:00 08/24/18 04:22 Imaging: Imaging: CXR IMPRESSION: No acute cardiopulmonary abnormality is detected. Chest CTA IMPRESSION: No CT evidence of central pulmonary emboli. PE: GEN: NAD - eating lunch HEENT: Atraumatic, PERRL LUNGS: tight, NC HEART: RRR ABD: NABS, S/ND, vague epigastric discomfort EXTREMITY: No edema SKIN: No rashes, no jaundice NEURO/PSYCH: A & O 3 A/P: A/P: COPD exacerbation JESSICA - Hgb lower than in the past Epigastric discomfort GERD, presbyesophagus H/o H. pylori - reportedly treated in 2008 CRC screen, h/o adenomatous polyp - ?last in 2008 Diverticular disease CAD on Plavix and ASA NSAID use -- Agree w/ PPI. Add PO iron - h/o constipation w/ this so will also add Miralax. 'scopes later on (can do outpt) when pulm status improved. Will review latest office records. DENY MONTESINOS Aug 24, 2018 13:27
[2018-08-24] MEDS: FLUTICASONE 50MCG/NASAL SPRAY 16GM BOTTLE. NS SCH ×2 (14:13→20:59)
[2018-08-24 15:00] VITALS: BP 139/77
[2018-08-24] MEDS: POLYETHYLENE GLYCOL 3350 17 GM PACKET. PO SCH (16:58)
[2018-08-24] MEDS: FERROUS SULFATE ORAL 300 MG/5 ML SOLUTION. PO SCH (16:58)
[2018-08-24] MEDS: PANTOPRAZOLE 40 MG TABLET.DR. PO SCH (16:59)
[2018-08-24] MEDS: FUROSEMIDE 20 MG TABLET PO SCH (16:59)
[2018-08-24 19:00] VITALS: BP 147/88
[2018-08-24] MEDS: ENOXAPARIN 40 MG/0.4 ML SYRINGE. SQ SCH (20:57)
[2018-08-24] MEDS: SERTRALINE 50 MG TABLET. PO SCH (20:58)
[2018-08-24] MEDS: DOXYCYCLINE HYCLATE 100 MG TABLET PO SCH (20:58)
[2018-08-24] MEDS: MONTELUKAST SODIUM 10 MG TABLET. PO SCH (20:58)
[2018-08-24 23:00] VITALS: BP 141/88
[2018-08-25] MEDS: guaiFENesin DM 200MG/20MG 10 ML SYRUP PO PRN ×2 (01:09→18:10)
[2018-08-25] MEDS ORDERED: ACETAMINOPHEN 325 MG TABLET. PO PRN (01:30)
[2018-08-25] MEDS: fentaNYL PF VIAL 100 MCG/2 ML VIAL IV PRN (01:32)
[2018-08-25 03:00] VITALS: BP 129/83
[2018-08-25 05:31] LABS: BASO % 0 % (0-3); EOS % 0 % (0-3); HEMATOCRIT 27.6 % (36.0-47.0); HEMOGLOBIN 8.3 g/dL (12.0-15.5); LYMPH # 0.8 x10^3/uL (1.0-4.8); LYMPH % 8 % (24-48); MEAN CORPUSCULAR HEMOGLOBIN 21 pg (25-35); MEAN CORPUSCULAR HGB CONC 30 g/dL (31-37); MEAN CORPUSCULAR VOLUME 69 fL (79-100); MONO # 0.7 x10^3/uL (0.0-1.1); MONO % 7 % (0-9); NEUT # 8.1 x10^3uL (1.8-7.7); NEUT % 84 % (31-73); PLATELET COUNT 302 x10^3/uL (140-400); RED BLOOD COUNT 3.99 x10^6/uL (3.50-5.40); WHITE BLOOD COUNT 9.6 x10^3/uL (4.0-11.0)
[2018-08-25] MEDS: methylPREDNISolone SOD SUCC PF 40 MG/ML VIAL. IV SCH ×3 (05:32→20:47)
[2018-08-25 06:03] LABS: ALBUMIN 3.8 g/dL (3.4-5.0); ALBUMIN/GLOBULIN RATIO 1.1 (1.0-1.7); CALCIUM 8.9 mg/dL (8.5-10.1); CREATININE 0.8 mg/dL (0.6-1.0); GFR 88.5; POTASSIUM 4.3 mmol/L (3.5-5.1); TOTAL BILIRUBIN 0.2 mg/dL (0.2-1.0); TOTAL PROTEIN 7.4 g/dL (6.4-8.2)
[2018-08-25 07:00] VITALS: BP 144/87
[2018-08-25] MEDS: SODIUM CHL/ALOE VERA NASAL GEL 14.1GM TUBE. NS SCH ×3 (07:00→17:05)
[2018-08-25] MEDS: INSULIN LISPRO 300 UNITS/3 ML INSULN.PEN. SQ SCH ×3 (08:00→17:00)
[2018-08-25] MEDS: DOXYCYCLINE HYCLATE 100 MG TABLET PO SCH ×2 (09:19→20:46)
[2018-08-25] MEDS: POLYETHYLENE GLYCOL 3350 17 GM PACKET. PO SCH (09:19)
[2018-08-25] MEDS: LACTOBACILLUS RHAMNOSUS GG 1 CAPSULE. PO SCH ×2 (09:19→20:46)
[2018-08-25] MEDS: FERROUS SULFATE ORAL 300 MG/5 ML SOLUTION. PO SCH ×2 (09:20→18:01)
[2018-08-25] MEDS: CLOPIDOGREL BISULFATE 75 MG TABLET PO SCH (09:20)
[2018-08-25] MEDS: ROFLUMILAST 500 MCG TABLET. PO SCH (09:20)
[2018-08-25] MEDS: PANTOPRAZOLE 40 MG TABLET.DR. PO SCH ×2 (09:21→18:01)
[2018-08-25] MEDS: ASPIRIN ENTERIC COATED 81 MG TABLET.DR. PO SCH (09:21)
[2018-08-25] MEDS: POTASSIUM CHLORIDE 10 MEQ TABLET.ER. PO SCH (09:22)
[2018-08-25] MEDS: FLUTICASONE 50MCG/NASAL SPRAY 16GM BOTTLE. NS SCH ×2 (09:24→20:47)
[2018-08-25] MEDS: BUDESONIDE 0.5 MG/2 ML NEBU. NEB SCH ×3 (09:36→21:08)
[2018-08-25] MEDS: IPRATRPIUM/ALBUTEROL 0.5/2.5MG 3 ML NEBU. IH SCH ×5 (09:36→21:08)
[2018-08-25 11:00] VITALS: BP 132/73
--- NOTE | 2018-08-25 12:39 | PDOC ---
Subjective: Subjective: Achey all over including epigastric discomfort under ribs. Objective: Vital Signs: Vital Signs Date Time Temp Pulse Resp B/P (MAP) Pulse Ox O2 Delivery O2 Flow Rate FiO2 08/25/18 12:18 Nasal Cannula 2.0 08/25/18 11:00 98.9 77 18 132/73 (92) 98 98.9 Labs: Laboratory Tests Test 08/24/18 16:34 08/24/18 21:12 08/25/18 04:20 08/25/18 07:34 Glucose (Fingerstick) 123 mg/dL 146 mg/dL 134 mg/dL White Blood Count 9.6 x10^3/uL Red Blood Count 3.99 x10^6/uL Hemoglobin 8.3 g/dL Hematocrit 27.6 % Mean Corpuscular Volume 69 fL Mean Corpuscular Hemoglobin 21 pg Mean Corpuscular Hemoglobin Concent 30 g/dL Red Cell Distribution Width 19.0 % Platelet Count 302 x10^3/uL Neutrophils (%) (Auto) 84 % Lymphocytes (%) (Auto) 8 % Monocytes (%) (Auto) 7 % Eosinophils (%) (Auto) 0 % Basophils (%) (Auto) 0 % Neutrophils # (Auto) 8.1 x10^3uL Lymphocytes # (Auto) 0.8 x10^3/uL Monocytes # (Auto) 0.7 x10^3/uL Eosinophils # (Auto) 0.0 x10^3/uL Basophils # (Auto) 0.0 x10^3/uL Sodium Level 145 mmol/L Potassium Level 4.3 mmol/L Chloride Level 104 mmol/L Carbon Dioxide Level 35 mmol/L Anion Gap 6 Blood Urea Nitrogen 15 mg/dL Creatinine 0.8 mg/dL Estimated GFR (Cockcroft-Gault) 88.5 BUN/Creatinine Ratio 19 Glucose Level 123 mg/dL Calcium Level 8.9 mg/dL Iron Level 29 ug/dL Total Iron Binding Capacity 467 ug/dL Iron Saturation 6 % Total Bilirubin 0.2 mg/dL Aspartate Amino Transf (AST/SGOT) 17 U/L Alanine Aminotransferase (ALT/SGPT) 27 U/L Alkaline Phosphatase 64 U/L Total Protein 7.4 g/dL Albumin 3.8 g/dL Albumin/Globulin Ratio 1.1 Test 08/25/18 10:50 Glucose (Fingerstick) 147 mg/dL PE: GEN: NAD LUNGS: breathing treatment HEART: RRR ABD: epigastric discomfort NEURO/PSYCH: A & O 3 A/P: COPD exacerbation JESSICA - Hgb lower than in the past Epigastric discomfort -extensive GI workup per consult note -on steroids, NSAID, Plavix, ASA -- Continue iron and PPI. High risk for endoscopy/sedation w/ pulm issues. DENY MONTESINOS Aug 25, 2018 12:39
--- NOTE | 2018-08-25 13:33 | NUR ---
SW following for discharge planning. Discussed with RN, pt is on O2 at home. RN advised no SW needs at this time. SW will continue to follow.
--- NOTE | 2018-08-25 13:45 | PDOC ---
PULMONARY PROGRESS NOTES Subjective no soa Vitals Vital Signs Date Time Temp Pulse Resp B/P (MAP) Pulse Ox O2 Delivery O2 Flow Rate FiO2 08/25/18 12:18 Nasal Cannula 2.0 08/25/18 11:00 98.9 77 18 132/73 (92) 98 98.9 General: Alert, No acute distress Lungs: Clear Cardiovascular: S1, S2 Abdomen: Soft, Non-tender, Other Neuro Exam: Alert Extremities: No Edema Skin: Warm Labs Laboratory Tests Test 08/24/18 07:35 08/24/18 11:30 08/24/18 16:34 08/24/18 21:12 White Blood Count 5.2 x10^3/uL (4.0-11.0) Red Blood Count 4.01 x10^6/uL (3.50-5.40) Hemoglobin 8.2 g/dL (12.0-15.5) Hematocrit 28.0 % (36.0-47.0) Mean Corpuscular Volume 70 fL (79-100) Mean Corpuscular Hemoglobin 21 pg (25-35) Mean Corpuscular Hemoglobin Concent 29 g/dL (31-37) Red Cell Distribution Width 19.2 % (11.5-14.5) Platelet Count 304 x10^3/uL (140-400) Neutrophils (%) (Auto) 82 % (31-73) Lymphocytes (%) (Auto) 14 % (24-48) Monocytes (%) (Auto) 4 % (0-9) Eosinophils (%) (Auto) 0 % (0-3) Basophils (%) (Auto) 0 % (0-3) Neutrophils # (Auto) 4.2 x10^3uL (1.8-7.7) Lymphocytes # (Auto) 0.7 x10^3/uL (1.0-4.8) Monocytes # (Auto) 0.2 x10^3/uL (0.0-1.1) Eosinophils # (Auto) 0.0 x10^3/uL (0.0-0.7) Basophils # (Auto) 0.0 x10^3/uL (0.0-0.2) Reticulocyte Count (auto) 1.9 % (0.5-2.5) Sodium Level 143 mmol/L (136-145) Potassium Level 4.2 mmol/L (3.5-5.1) Chloride Level 103 mmol/L (98-107) Carbon Dioxide Level 34 mmol/L (21-32) Anion Gap 6 (6-14) Blood Urea Nitrogen 18 mg/dL (7-20) Creatinine 0.8 mg/dL (0.6-1.0) Estimated GFR (Cockcroft-Gault) 88.5 BUN/Creatinine Ratio 23 (6-20) Glucose Level 142 mg/dL (70-99) Calcium Level 8.9 mg/dL (8.5-10.1) Total Bilirubin 0.3 mg/dL (0.2-1.0) Aspartate Amino Transf (AST/SGOT) 18 U/L (15-37) Alanine Aminotransferase (ALT/SGPT) 27 U/L (14-59) Alkaline Phosphatase 69 U/L (46-116) Total Protein 7.4 g/dL (6.4-8.2) Albumin 3.8 g/dL (3.4-5.0) Albumin/Globulin Ratio 1.1 (1.0-1.7) Glucose (Fingerstick) 109 mg/dL (70-99) 123 mg/dL (70-99) 146 mg/dL (70-99) Test 08/25/18 04:20 08/25/18 07:34 08/25/18 10:50 White Blood Count 9.6 x10^3/uL (4.0-11.0) Red Blood Count 3.99 x10^6/uL (3.50-5.40) Hemoglobin 8.3 g/dL (12.0-15.5) Hematocrit 27.6 % (36.0-47.0) Mean Corpuscular Volume 69 fL (79-100) Mean Corpuscular Hemoglobin 21 pg (25-35) Mean Corpuscular Hemoglobin Concent 30 g/dL (31-37) Red Cell Distribution Width 19.0 % (11.5-14.5) Platelet Count 302 x10^3/uL (140-400) Neutrophils (%) (Auto) 84 % (31-73) Lymphocytes (%) (Auto) 8 % (24-48) Monocytes (%) (Auto) 7 % (0-9) Eosinophils (%) (Auto) 0 % (0-3) Basophils (%) (Auto) 0 % (0-3) Neutrophils # (Auto) 8.1 x10^3uL (1.8-7.7) Lymphocytes # (Auto) 0.8 x10^3/uL (1.0-4.8) Monocytes # (Auto) 0.7 x10^3/uL (0.0-1.1) Eosinophils # (Auto) 0.0 x10^3/uL (0.0-0.7) Basophils # (Auto) 0.0 x10^3/uL (0.0-0.2) Sodium Level 145 mmol/L (136-145) Potassium Level 4.3 mmol/L (3.5-5.1) Chloride Level 104 mmol/L (98-107) Carbon Dioxide Level 35 mmol/L (21-32) Anion Gap 6 (6-14) Blood Urea Nitrogen 15 mg/dL (7-20) Creatinine 0.8 mg/dL (0.6-1.0) Estimated GFR (Cockcroft-Gault) 88.5 BUN/Creatinine Ratio 19 (6-20) Glucose Level 123 mg/dL (70-99) Calcium Level 8.9 mg/dL (8.5-10.1) Iron Level 29 ug/dL (50-170) Total Iron Binding Capacity 467 ug/dL (250-450) Iron Saturation 6 % (15-34) Total Bilirubin 0.2 mg/dL (0.2-1.0) Aspartate Amino Transf (AST/SGOT) 17 U/L (15-37) Alanine Aminotransferase (ALT/SGPT) 27 U/L (14-59) Alkaline Phosphatase 64 U/L (46-116) Total Protein 7.4 g/dL (6.4-8.2) Albumin 3.8 g/dL (3.4-5.0) Albumin/Globulin Ratio 1.1 (1.0-1.7) Glucose (Fingerstick) 134 mg/dL (70-99) 147 mg/dL (70-99) Laboratory Tests Test 08/24/18 16:34 08/24/18 21:12 08/25/18 04:20 08/25/18 07:34 Glucose (Fingerstick) 123 mg/dL (70-99) 146 mg/dL (70-99) 134 mg/dL (70-99) White Blood Count 9.6 x10^3/uL (4.0-11.0) Red Blood Count 3.99 x10^6/uL (3.50-5.40) Hemoglobin 8.3 g/dL (12.0-15.5) Hematocrit 27.6 % (36.0-47.0) Mean Corpuscular Volume 69 fL (79-100) Mean Corpuscular Hemoglobin 21 pg (25-35) Mean Corpuscular Hemoglobin Concent 30 g/dL (31-37) Red Cell Distribution Width 19.0 % (11.5-14.5) Platelet Count 302 x10^3/uL (140-400) Neutrophils (%) (Auto) 84 % (31-73) Lymphocytes (%) (Auto) 8 % (24-48) Monocytes (%) (Auto) 7 % (0-9) Eosinophils (%) (Auto) 0 % (0-3) Basophils (%) (Auto) 0 % (0-3) Neutrophils # (Auto) 8.1 x10^3uL (1.8-7.7) Lymphocytes # (Auto) 0.8 x10^3/uL (1.0-4.8) Monocytes # (Auto) 0.7 x10^3/uL (0.0-1.1) Eosinophils # (Auto) 0.0 x10^3/uL (0.0-0.7) Basophils # (Auto) 0.0 x10^3/uL (0.0-0.2) Sodium Level 145 mmol/L (136-145) Potassium Level 4.3 mmol/L (3.5-5.1) Chloride Level 104 mmol/L (98-107) Carbon Dioxide Level 35 mmol/L (21-32) Anion Gap 6 (6-14) Blood Urea Nitrogen 15 mg/dL (7-20) Creatinine 0.8 mg/dL (0.6-1.0) Estimated GFR (Cockcroft-Gault) 88.5 BUN/Creatinine Ratio 19 (6-20) Glucose Level 123 mg/dL (70-99) Calcium Level 8.9 mg/dL (8.5-10.1) Iron Level 29 ug/dL (50-170) Total Iron Binding Capacity 467 ug/dL (250-450) Iron Saturation 6 % (15-34) Total Bilirubin 0.2 mg/dL (0.2-1.0) Aspartate Amino Transf (AST/SGOT) 17 U/L (15-37) Alanine Aminotransferase (ALT/SGPT) 27 U/L (14-59) Alkaline Phosphatase 64 U/L (46-116) Total Protein 7.4 g/dL (6.4-8.2) Albumin 3.8 g/dL (3.4-5.0) Albumin/Globulin Ratio 1.1 (1.0-1.7) Test 08/25/18 10:50 Glucose (Fingerstick) 147 mg/dL (70-99) Medications Active Scripts Medications Dose Route/Sig Max Daily Dose Days Date Category Colace (Docusate Sodium) 100 Mg Capsule 100 Mg PO PRN DAILY PRN 30 05/14/18 Rx Azithromycin Tablet (Azithromycin) 250 Mg Tablet 250 Mg PO DAILY 7 05/14/18 Rx Famotidine 20 Mg Tablet 20 Mg PO BID 30 05/14/18 Rx Culturelle (Lactobacillus Rhamnosus Gg) 1 Each Cap.sprink 1 Cap PO BID 14 05/14/18 Rx Prednisone (Prednisone) 10 Mg Tablet 30 Mg PO DAILY 14 05/14/18 Rx Robson Saline Nasal Gel (Sodium Chloride/Aloe Vera) 14.1 Gm Gel..gram. 1 Delilah NS [id number] 14 05/14/18 Rx Daliresp (Roflumilast) 500 Mcg Tablet 500 Mcg PO DAILY 30 05/14/18 Rx Guaifenesin Dm Syrup (Guaifenesin/Dextromethorphan) 5 Ml Syrup 10 Ml PO PRN Q6HRS PRN 30 05/14/18 Rx Flonase Allergy Relief (Fluticasone Propionate) 9.9 Ml [place].susp 2 Sprays NS BID 05/10/18 Reported Zoloft (Sertraline Hcl) 50 Mg Tablet 1 Tab PO HS 05/10/18 Reported Clopidogrel (Clopidogrel Bisulfate) 75 Mg Tablet 1 Tab PO DAILY 02/25/18 Reported Guaifenesin 600 Mg Tablet.er 600 Mg PO DAILY 02/25/18 Reported Azithromycin Packet (Azithromycin) 1 Gm Packet 1 Packet PO ONCE 04/01/17 Rx Potassium Chloride 10 Meq Capsule.er 1 Cap PO DAILY 04/26/15 Rx Nexium Capsule (Esomeprazole Magnesium) 40 Mg Capsule.dr 40 Mg PO DAILYAC 04/18/15 Reported Singulair Tablet (Montelukast Sodium) 10 Mg Tablet 1 Tab PO HS 04/27/14 Reported Lasix (Furosemide) 20 Mg Tablet 1 Tab PO DAILY16 04/27/14 Reported Symbicort 160-4.5 Mcg Inhaler (Budesonide/Formoterol Fumarate) 10.2 Gm Hfa.aer.ad 10.2 Gm IH BID 07/28/13 Reported Albuterol Sulfate Hfa Inhaler (Albuterol Sulfate) 8.5 Gm Hfa.aer.ad 8.5 Gm IH PRN 07/28/13 Reported Duoneb 0.5 Mg-3 Mg/3 Ml Soln (Ipratropium/Albuterol Sulfate) 3 Ml Ampul.neb 3 Ml IH QID 07/28/13 Reported Aspir 81 (Aspirin) 81 Mg Tablet. 81 Mg PO DAILY 07/28/13 Reported Impression . 1. Dyspnea secondary to acute exacerbation of chronic obstructive pulmonary disease. 2. Acute bronchitis. 3. No evidence of any pulmonary embolism or pneumonia based on the CT chest. 4. Postnasal drainage. 5. Chronic hypoxic respiratory failure. Plan . 1. Continue with present antibiotics. 2. Continue with DuoNebs and Pulmicort. 3. IV steroids. 4. Continue with Daliresp. 5. Flonase for postnasal drainage. 6. Pt frustrated with her disease. I discussed with her that the only option would be to evaluate for lung transplant. PFT today TRACEE PIZARRO MD Aug 25, 2018 13:45
--- NOTE | 2018-08-25 14:00 | PDOC ---
PROGRESS NOTES Chief Complaint Chief Complaint dyspnea, ACUTE COPD exacerbation chronic hypoxic and hypercapnic resp failure CAD with 1 stent at RCA accelerated HTN moribid obesity GERD previous smoker normocytic anemia pulmonary HTN wheezing/ bronchospasm History of Present Illness History of Present Illness cont current IV steroids, doxy to PO taper steroids as able she wants regular diet, refused to eat heart healthy, will add SSI abd pain, add PRN stomach meds Vitals Vitals Vital Signs Date Time Temp Pulse Resp B/P (MAP) Pulse Ox O2 Delivery O2 Flow Rate FiO2 08/25/18 12:18 Nasal Cannula 2.0 08/25/18 11:00 98.9 77 18 132/73 (92) 98 98.9 Physical Exam General: Alert, Oriented X3, Cooperative, moderate distress Lungs: Clear Abdomen: Soft Extremities: No cyanosis Skin: No breakdown Labs LABS Laboratory Tests Test 08/24/18 16:34 08/24/18 21:12 08/25/18 04:20 08/25/18 07:34 Glucose (Fingerstick) 123 mg/dL (70-99) 146 mg/dL (70-99) 134 mg/dL (70-99) White Blood Count 9.6 x10^3/uL (4.0-11.0) Red Blood Count 3.99 x10^6/uL (3.50-5.40) Hemoglobin 8.3 g/dL (12.0-15.5) Hematocrit 27.6 % (36.0-47.0) Mean Corpuscular Volume 69 fL (79-100) Mean Corpuscular Hemoglobin 21 pg (25-35) Mean Corpuscular Hemoglobin Concent 30 g/dL (31-37) Red Cell Distribution Width 19.0 % (11.5-14.5) Platelet Count 302 x10^3/uL (140-400) Neutrophils (%) (Auto) 84 % (31-73) Lymphocytes (%) (Auto) 8 % (24-48) Monocytes (%) (Auto) 7 % (0-9) Eosinophils (%) (Auto) 0 % (0-3) Basophils (%) (Auto) 0 % (0-3) Neutrophils # (Auto) 8.1 x10^3uL (1.8-7.7) Lymphocytes # (Auto) 0.8 x10^3/uL (1.0-4.8) Monocytes # (Auto) 0.7 x10^3/uL (0.0-1.1) Eosinophils # (Auto) 0.0 x10^3/uL (0.0-0.7) Basophils # (Auto) 0.0 x10^3/uL (0.0-0.2) Sodium Level 145 mmol/L (136-145) Potassium Level 4.3 mmol/L (3.5-5.1) Chloride Level 104 mmol/L (98-107) Carbon Dioxide Level 35 mmol/L (21-32) Anion Gap 6 (6-14) Blood Urea Nitrogen 15 mg/dL (7-20) Creatinine 0.8 mg/dL (0.6-1.0) Estimated GFR (Cockcroft-Gault) 88.5 BUN/Creatinine Ratio 19 (6-20) Glucose Level 123 mg/dL (70-99) Calcium Level 8.9 mg/dL (8.5-10.1) Iron Level 29 ug/dL (50-170) Total Iron Binding Capacity 467 ug/dL (250-450) Iron Saturation 6 % (15-34) Total Bilirubin 0.2 mg/dL (0.2-1.0) Aspartate Amino Transf (AST/SGOT) 17 U/L (15-37) Alanine Aminotransferase (ALT/SGPT) 27 U/L (14-59) Alkaline Phosphatase 64 U/L (46-116) Total Protein 7.4 g/dL (6.4-8.2) Albumin 3.8 g/dL (3.4-5.0) Albumin/Globulin Ratio 1.1 (1.0-1.7) Test 08/25/18 10:50 Glucose (Fingerstick) 147 mg/dL (70-99) Comment Review of Relevant I have reviewed the following items paulette (where applicable) has been applied. Labs Laboratory Tests Test 08/24/18 07:35 08/24/18 11:30 08/24/18 16:34 08/24/18 21:12 White Blood Count 5.2 x10^3/uL (4.0-11.0) Red Blood Count 4.01 x10^6/uL (3.50-5.40) Hemoglobin 8.2 g/dL (12.0-15.5) Hematocrit 28.0 % (36.0-47.0) Mean Corpuscular Volume 70 fL (79-100) Mean Corpuscular Hemoglobin 21 pg (25-35) Mean Corpuscular Hemoglobin Concent 29 g/dL (31-37) Red Cell Distribution Width 19.2 % (11.5-14.5) Platelet Count 304 x10^3/uL (140-400) Neutrophils (%) (Auto) 82 % (31-73) Lymphocytes (%) (Auto) 14 % (24-48) Monocytes (%) (Auto) 4 % (0-9) Eosinophils (%) (Auto) 0 % (0-3) Basophils (%) (Auto) 0 % (0-3) Neutrophils # (Auto) 4.2 x10^3uL (1.8-7.7) Lymphocytes # (Auto) 0.7 x10^3/uL (1.0-4.8) Monocytes # (Auto) 0.2 x10^3/uL (0.0-1.1) Eosinophils # (Auto) 0.0 x10^3/uL (0.0-0.7) Basophils # (Auto) 0.0 x10^3/uL (0.0-0.2) Reticulocyte Count (auto) 1.9 % (0.5-2.5) Sodium Level 143 mmol/L (136-145) Potassium Level 4.2 mmol/L (3.5-5.1) Chloride Level 103 mmol/L (98-107) Carbon Dioxide Level 34 mmol/L (21-32) Anion Gap 6 (6-14) Blood Urea Nitrogen 18 mg/dL (7-20) Creatinine 0.8 mg/dL (0.6-1.0) Estimated GFR (Cockcroft-Gault) 88.5 BUN/Creatinine Ratio 23 (6-20) Glucose Level 142 mg/dL (70-99) Calcium Level 8.9 mg/dL (8.5-10.1) Total Bilirubin 0.3 mg/dL (0.2-1.0) Aspartate Amino Transf (AST/SGOT) 18 U/L (15-37) Alanine Aminotransferase (ALT/SGPT) 27 U/L (14-59) Alkaline Phosphatase 69 U/L (46-116) Total Protein 7.4 g/dL (6.4-8.2) Albumin 3.8 g/dL (3.4-5.0) Albumin/Globulin Ratio 1.1 (1.0-1.7) Glucose (Fingerstick) 109 mg/dL (70-99) 123 mg/dL (70-99) 146 mg/dL (70-99) Test 08/25/18 04:20 08/25/18 07:34 08/25/18 10:50 White Blood Count 9.6 x10^3/uL (4.0-11.0) Red Blood Count 3.99 x10^6/uL (3.50-5.40) Hemoglobin 8.3 g/dL (12.0-15.5) Hematocrit 27.6 % (36.0-47.0) Mean Corpuscular Volume 69 fL (79-100) Mean Corpuscular Hemoglobin 21 pg (25-35) Mean Corpuscular Hemoglobin Concent 30 g/dL (31-37) Red Cell Distribution Width 19.0 % (11.5-14.5) Platelet Count 302 x10^3/uL (140-400) Neutrophils (%) (Auto) 84 % (31-73) Lymphocytes (%) (Auto) 8 % (24-48) Monocytes (%) (Auto) 7 % (0-9) Eosinophils (%) (Auto) 0 % (0-3) Basophils (%) (Auto) 0 % (0-3) Neutrophils # (Auto) 8.1 x10^3uL (1.8-7.7) Lymphocytes # (Auto) 0.8 x10^3/uL (1.0-4.8) Monocytes # (Auto) 0.7 x10^3/uL (0.0-1.1) Eosinophils # (Auto) 0.0 x10^3/uL (0.0-0.7) Basophils # (Auto) 0.0 x10^3/uL (0.0-0.2) Sodium Level 145 mmol/L (136-145) Potassium Level 4.3 mmol/L (3.5-5.1) Chloride Level 104 mmol/L (98-107) Carbon Dioxide Level 35 mmol/L (21-32) Anion Gap 6 (6-14) Blood Urea Nitrogen 15 mg/dL (7-20) Creatinine 0.8 mg/dL (0.6-1.0) Estimated GFR (Cockcroft-Gault) 88.5 BUN/Creatinine Ratio 19 (6-20) Glucose Level 123 mg/dL (70-99) Calcium Level 8.9 mg/dL (8.5-10.1) Iron Level 29 ug/dL (50-170) Total Iron Binding Capacity 467 ug/dL (250-450) Iron Saturation 6 % (15-34) Total Bilirubin 0.2 mg/dL (0.2-1.0) Aspartate Amino Transf (AST/SGOT) 17 U/L (15-37) Alanine Aminotransferase (ALT/SGPT) 27 U/L (14-59) Alkaline Phosphatase 64 U/L (46-116) Total Protein 7.4 g/dL (6.4-8.2) Albumin 3.8 g/dL (3.4-5.0) Albumin/Globulin Ratio 1.1 (1.0-1.7) Glucose (Fingerstick) 134 mg/dL (70-99) 147 mg/dL (70-99) Laboratory Tests Test 08/24/18 16:34 08/24/18 21:12 08/25/18 04:20 08/25/18 07:34 Glucose (Fingerstick) 123 mg/dL (70-99) 146 mg/dL (70-99) 134 mg/dL (70-99) White Blood Count 9.6 x10^3/uL (4.0-11.0) Red Blood Count 3.99 x10^6/uL (3.50-5.40) Hemoglobin 8.3 g/dL (12.0-15.5) Hematocrit 27.6 % (36.0-47.0) Mean Corpuscular Volume 69 fL (79-100) Mean Corpuscular Hemoglobin 21 pg (25-35) Mean Corpuscular Hemoglobin Concent 30 g/dL (31-37) Red Cell Distribution Width 19.0 % (11.5-14.5) Platelet Count 302 x10^3/uL (140-400) Neutrophils (%) (Auto) 84 % (31-73) Lymphocytes (%) (Auto) 8 % (24-48) Monocytes (%) (Auto) 7 % (0-9) Eosinophils (%) (Auto) 0 % (0-3) Basophils (%) (Auto) 0 % (0-3) Neutrophils # (Auto) 8.1 x10^3uL (1.8-7.7) Lymphocytes # (Auto) 0.8 x10^3/uL (1.0-4.8) Monocytes # (Auto) 0.7 x10^3/uL (0.0-1.1) Eosinophils # (Auto) 0.0 x10^3/uL (0.0-0.7) Basophils # (Auto) 0.0 x10^3/uL (0.0-0.2) Sodium Level 145 mmol/L (136-145) Potassium Level 4.3 mmol/L (3.5-5.1) Chloride Level 104 mmol/L (98-107) Carbon Dioxide Level 35 mmol/L (21-32) Anion Gap 6 (6-14) Blood Urea Nitrogen 15 mg/dL (7-20) Creatinine 0.8 mg/dL (0.6-1.0) Estimated GFR (Cockcroft-Gault) 88.5 BUN/Creatinine Ratio 19 (6-20) Glucose Level 123 mg/dL (70-99) Calcium Level 8.9 mg/dL (8.5-10.1) Iron Level 29 ug/dL (50-170) Total Iron Binding Capacity 467 ug/dL (250-450) Iron Saturation 6 % (15-34) Total Bilirubin 0.2 mg/dL (0.2-1.0) Aspartate Amino Transf (AST/SGOT) 17 U/L (15-37) Alanine Aminotransferase (ALT/SGPT) 27 U/L (14-59) Alkaline Phosphatase 64 U/L (46-116) Total Protein 7.4 g/dL (6.4-8.2) Albumin 3.8 g/dL (3.4-5.0) Albumin/Globulin Ratio 1.1 (1.0-1.7) Test 08/25/18 10:50 Glucose (Fingerstick) 147 mg/dL (70-99) Medications Current Medications Albuterol/ Ipratropium (Duoneb) 3 ml 1X ONCE NEB Last administered on at 12:35; Start 08/23/18 at 12:30; Stop 08/23/18 at 12:31; Status DC Methylprednisolone Sodium Succinate (SOLU-Medrol 125MG VIAL) 125 mg 1X ONCE IV Last administered on 08/23/18at 12:38; Start 08/23/18 at 12:30; Stop 08/23/18 at 12:31; Status DC Iohexol (Omnipaque 350 Mg/ml) 90 ml 1X ONCE IV Last administered on 08/23/18at 15:23; Start 08/23/18 at 15:15; Stop 08/23/18 at 15:16; Status DC Info (CONTRAST GIVEN -- Rx MONITORING) 1 each PRN DAILY PRN MC SEE COMMENTS; Start 08/23/18 at 15:15; Stop 08/25/18 at 15:14 Ondansetron HCl (Zofran) 4 mg PRN Q8HRS PRN IV NAUSEA/VOMITING; Start 08/23/18 at 15:45; Stop 08/24/18 at 15:44; Status DC Fentanyl Citrate (Fentanyl 2ml Vial) 50 mcg PRN Q1HR PRN IV PAIN Last administered on 08/24/18at 11:47; Start 08/23/18 at 15:45; Stop 08/24/18 at 15:44 ; Status DC Acetaminophen (Tylenol) 650 mg PRN Q4HRS PRN PO FEVER Last administered on 08/24at 01:44; Start 08/23/18 at 15:45; Stop 08/24/18 at 15:44; Status DC Albuterol/ Ipratropium (Duoneb) 3 ml RTQID NEB Last administered on 08/23/18at 19:35; Start 08/23/18 at 16:00; Stop 08/23/18 at 21:19; Status DC Methylprednisolone Sodium Succinate (SOLU-Medrol 40MG VIAL) 40 mg Q8HRS IV Last administered on 08/25/18at 05:32; Start 08/23/18 at 22:00 Aspirin (Ecotrin) 81 mg DAILYWBKFT PO Last administered on 08/25/18 09:21; Start 08/24/18 at 08:00 Clopidogrel Bisulfate (Plavix) 75 mg DAILY PO Last administered on 08/25/18at 09 :20; Start 08/24/18 at 09:00 Docusate Sodium (Colace) 100 mg PRN DAILY PRN PO CONSTIPATION Last administered on 08/23/18 21:25; Start 08/23/18 at 21:15 Famotidine (Pepcid) 20 mg BID PO Last administered on 08/24/18 09:13; Start at 21:30; Stop 08/24/18 at 13:29; Status DC Furosemide (Lasix) 20 mg DAILY16 PO Last administered on 08/24/18 16:59; Start 08/24/18 at 16:00 Guaifenesin (Mucinex) 600 mg DAILY PO Last administered on 08/25/18 09:22; Start 08/24/18 at 09:00 Guaifenesin (Robitussin Dm) 10 ml PRN Q6HRS PRN PO COUGH Last administered on 01:09; Start 08/23/18 at 21:15 Albuterol/ Ipratropium (Duoneb) 3 ml RTQID IH Last administered on 08/25/18 12 :17; Start 08/24/18 at 08:00 Lactobacillus Rhamnosus (Culturelle) 1 cap BID PO Last administered on 09:19; Start 08/24/18 at 09:00 Potassium Chloride (Klor-Con) 10 meq DAILYWBKFT PO Last administered on 09:22; Start 08/24/18 at 08:00 Sertraline HCl (Zoloft) 50 mg HS PO Last administered on 08/24/18 20:58; Start 08/23/18 at 21:30 Sodium Chloride ([place] Saline Nasal) 1 delilah [id number] NS ; Start 08/24/18 at 07:00 Non-Formulary Medication (Budesonide/ Formoterol Fumarate (Symbicort 160-4.5 Mcg Inhaler)) 10.2 gm BID IH ; Start 08/24/18 at 09:00; Status UNV Pantoprazole Sodium (Protonix) 40 mg DAILYAC PO Last administered on 08/24/18 06:19; Start 08/24/18 at 07:30; Stop 08/24/18 at 13:28; Status DC Fluticasone Propionate (Flonase) 2 spray BID NS Last administered on 08/25/18 09:24; Start 08/23/18 at 21:30 Montelukast Sodium (Singulair) 10 mg HS PO Last administered on 08/24/18at 20:58 ; Start 08/23/18 at 21:30 Roflumilast (Daliresp) 500 mcg DAILY PO Last administered on 08/25/18 09:20; Start 08/24/18 at 09:00 Doxycycline Hyclate 100 mg/ Dextrose 100 ml @ 50 mls/hr Q12HR IV Last administered on 08/24/18at 09:14; Start 08/24/18 at 09:00; Stop 08/24/18 at 10:22 ; Status DC Enoxaparin Sodium (Lovenox 40mg Syringe) 40 mg Q24H SQ Last administered on at 20:57; Start 08/23/18 at 21:30 Budesonide (Pulmicort) 0.5 mg RTBID NEB Last administered on 08/25/18at 09:36; Start 08/24/18 at 08:00 Albuterol Sulfate (Ventolin Neb Soln) 2.5 mg RTQID NEB ; Start 08/24/18 at 08:00 ; Status UNV Albuterol Sulfate (Ventolin Neb Soln) 2.5 mg PRN Q2HRS PRN NEB SHORTNESS OF BREATH Last administered on 08/24/18at 04:22; Start 08/24/18 at 02:00 Doxycycline Hyclate (Vibra-Tab) 100 mg BID PO Last administered on 08/25/18at 09 :19; Start 08/24/18 at 21:00 Insulin Human Lispro (HumaLOG) 0-7 UNITS TIDWMEALS SQ ; Start 08/24/18 at 12:00 Dextrose (Dextrose 50%-Water Syringe) 12.5 gm PRN Q15MIN PRN IV SEE COMMENTS; Start 08/24/18 at 10:30 Multi-Ingredient Mouthwash/Gargle (Gi Cocktail) 20 ml PRN QID PRN PO CHEST PAIN ; Start 08/24/18 at 10:45 Calcium Carbonate/ Glycine (Tums) 500 mg PRN AFTMEALHC PRN PO INDIGESTION; Start 08/24/18 at 10:45 Pantoprazole Sodium (Protonix) 40 mg BIDAC PO Last administered on 08/25/18 09 :21; Start 08/24/18 at 16:30 Ferrous Sulfate (Iron Oral Solution) 300 mg BIDWMEALS PO Last administered on at 09:20; Start 08/24/18 at 17:00 Polyethylene Glycol (miraLAX PACKET) 17 gm DAILY PO Last administered on at 09:19; Start 08/24/18 at 14:00 Fentanyl Citrate (Fentanyl 2ml Vial) 50 mcg PRN Q2HR PRN IV SEVERE PAIN Last administered on 08/25/18at 01:32; Start 08/25/18 at 01:30 Acetaminophen (Tylenol) 650 mg PRN Q6HRS PRN PO MILD PAIN / TEMP; Start at 01:30 Active Scripts Active Colace (Docusate Sodium) 100 Mg Capsule 100 Mg PO PRN DAILY PRN 30 Days Azithromycin Tablet (Azithromycin) 250 Mg Tablet 250 Mg PO DAILY 7 Days Famotidine 20 Mg Tablet 20 Mg PO BID 30 Days Culturelle (Lactobacillus Rhamnosus Gg) 1 Each Cap.sprink 1 Cap PO BID 14 Days Prednisone (Prednisone) 10 Mg Tablet 30 Mg PO DAILY 14 Days [place] Saline Nasal Gel (Sodium Chloride/Aloe Vera) 14.1 Gm Gel..gram. 1 Delilah NS [id number] 14 Days Daliresp (Roflumilast) 500 Mcg Tablet 500 Mcg PO DAILY 30 Days Guaifenesin Dm Syrup (Guaifenesin/Dextromethorphan) 5 Ml Syrup 10 Ml PO PRN Q6HRS PRN 30 Days Azithromycin Packet (Azithromycin) 1 Gm Packet 1 Packet PO ONCE Potassium Chloride 10 Meq Capsule.er 1 Cap PO DAILY Reported Flonase Allergy Relief (Fluticasone Propionate) 9.9 Ml [place].susp 2 Sprays NS BID Zoloft (Sertraline Hcl) 50 Mg Tablet 1 Tab PO HS Clopidogrel (Clopidogrel Bisulfate) 75 Mg Tablet 1 Tab PO DAILY Guaifenesin 600 Mg Tablet.er 600 Mg PO DAILY Nexium Capsule (Esomeprazole Magnesium) 40 Mg Capsule.dr 40 Mg PO DAILYAC Singulair Tablet (Montelukast Sodium) 10 Mg Tablet 1 Tab PO HS Lasix (Furosemide) 20 Mg Tablet 1 Tab PO DAILY16 Symbicort 160-4.5 Mcg Inhaler (Budesonide/Formoterol Fumarate) 10.2 Gm Hfa.aer.ad 10.2 Gm IH BID Albuterol Sulfate Hfa Inhaler (Albuterol Sulfate) 8.5 Gm Hfa.aer.ad 8.5 Gm IH PRN Duoneb 0.5 Mg-3 Mg/3 Ml Soln (Ipratropium/Albuterol Sulfate) 3 Ml Ampul.neb 3 Ml IH QID Aspir 81 (Aspirin) 81 Mg Tablet.dr 81 Mg PO DAILY Vitals/I & O Vital Sign - Last 24 Hours 08/24/18 08/24/18 08/24/18 08/24/18 15:00 15:40 19:00 19:50 Temp 98.8 98.6 98.8 98.6 Pulse 99 92 Resp 18 20 B/P (MAP) 139/77 (97) 147/88 (107) Pulse Ox 93 97 O2 Delivery Nasal Cannula Nasal Cannula Nasal Cannula Nasal Cannula O2 Flow Rate 2.0 2.0 2.0 2.0 08/24/18 08/24/18 08/25/18 08/25/18 20:00 23:00 01:32 02:09 Temp 99.2 99.2 Pulse 97 Resp 20 B/P (MAP) 141/88 (105) Pulse Ox 96 O2 Delivery Nasal Cannula Nasal Cannula Nasal Cannula Nasal Cannula O2 Flow Rate 2.0 2.0 2.0 2.0 08/25/18 08/25/18 08/25/18 08/25/18 03:00 07:00 08:00 09:38 Temp 98.9 98.6 98.9 98.6 Pulse 105 93 Resp 20 16 B/P (MAP) 129/83 (98) 144/87 (106) Pulse Ox 97 95 O2 Delivery Nasal Cannula Nasal Cannula Nasal Cannula Nasal Cannula O2 Flow Rate 2.0 2.0 2.0 2.0 08/25/18 08/25/18 08/25/18 09:38 11:00 12:18 Temp 98.9 98.9 Pulse 77 Resp 18 B/P (MAP) 132/73 (92) Pulse Ox 98 O2 Delivery Nasal Cannula Nasal Cannula Nasal Cannula O2 Flow Rate 2.0 2.0 2.0 Intake and Output 08/24/18 08/24/18 08/25/18 15:00 23:00 07:00 Intake Total 600 ml 550 ml 600 ml Balance 600 ml 550 ml 600 ml ROSEMARY VAUHGN MD Aug 25, 2018 14:00
[2018-08-25 15:00] VITALS: BP 135/85
--- NOTE | 2018-08-25 15:42 | RAD ---
Acute abdomen series with chest, 3 views, 08/25/2018: HISTORY: Epigastric pain Gas is present in large and small bowel in a nonspecific pattern. No free air is seen in the abdomen. There is no evidence of organomegaly. Scattered arterial calcifications are present. The heart is at the upper limits of normal in size. No pulmonary infiltrate is seen. There is no evidence of pleural fluid. There is a small eventration along the dome of the left hemidiaphragm. IMPRESSION: No acute abdominal abnormality is detected. Electronically signed by: Jarrett Vanegas MD (08/25/2018 3:39 PM) [facility]
[2018-08-25] MEDS: FUROSEMIDE 20 MG TABLET PO SCH (18:01)
[2018-08-25 19:00] VITALS: BP 126/76
[2018-08-25] MEDS: MONTELUKAST SODIUM 10 MG TABLET. PO SCH (20:46)
[2018-08-25] MEDS: SERTRALINE 50 MG TABLET. PO SCH (20:46)
[2018-08-25] MEDS: CYCLOBENZAPRINE 10 MG TABLET. PO PRN (20:46)
[2018-08-25] MEDS: ENOXAPARIN 40 MG/0.4 ML SYRINGE. SQ SCH (20:47)
[2018-08-25 23:00] VITALS: BP 139/81
[2018-08-26 03:00] VITALS: BP 150/95
[2018-08-26] MEDS: methylPREDNISolone SOD SUCC PF 40 MG/ML VIAL. IV SCH ×3 (06:23→20:54)
[2018-08-26 07:00] VITALS: BP 134/80
[2018-08-26] MEDS: BUDESONIDE 0.5 MG/2 ML NEBU. NEB SCH ×2 (07:13→20:00)
[2018-08-26] MEDS: IPRATRPIUM/ALBUTEROL 0.5/2.5MG 3 ML NEBU. IH SCH ×4 (07:13→20:17)
[2018-08-26] MEDS: INSULIN LISPRO 300 UNITS/3 ML INSULN.PEN. SQ SCH ×3 (07:47→17:06)
[2018-08-26] MEDS: LACTOBACILLUS RHAMNOSUS GG 1 CAPSULE. PO SCH ×2 (08:52→20:53)
[2018-08-26] MEDS: CLOPIDOGREL BISULFATE 75 MG TABLET PO SCH (08:52)
[2018-08-26] MEDS: ROFLUMILAST 500 MCG TABLET. PO SCH (08:52)
[2018-08-26] MEDS: FERROUS SULFATE ORAL 300 MG/5 ML SOLUTION. PO SCH ×2 (08:52→16:57)
[2018-08-26] MEDS: POTASSIUM CHLORIDE 10 MEQ TABLET.ER. PO SCH (08:53)
[2018-08-26] MEDS: ASPIRIN ENTERIC COATED 81 MG TABLET.DR. PO SCH (08:53)
[2018-08-26] MEDS: DOXYCYCLINE HYCLATE 100 MG TABLET PO SCH ×2 (08:53→20:53)
[2018-08-26] MEDS: PANTOPRAZOLE 40 MG TABLET.DR. PO SCH ×2 (08:53→16:56)
[2018-08-26] MEDS: FLUTICASONE 50MCG/NASAL SPRAY 16GM BOTTLE. NS SCH ×2 (08:58→20:54)
[2018-08-26] MEDS: POLYETHYLENE GLYCOL 3350 17 GM PACKET. PO SCH (09:00)
[2018-08-26 11:00] VITALS: BP 127/75
[2018-08-26] MEDS ORDERED: IRON SUCROSE COMPLEX 500 MG in IV NORMAL SALINE 250ML 250 ML IV ONE (13:00)
--- NOTE | 2018-08-26 13:16 | PDOC ---
Subjective: Subjective: Epigastric discomfort under ribs. Discouraged that "nothing has been found." Stooling - alternates between a little bit and a lot. Objective: Vital Signs: Vital Signs Date Time Temp Pulse Resp B/P (MAP) Pulse Ox O2 Delivery O2 Flow Rate FiO2 08/26/18 11:08 95 Nasal Cannula 2.0 08/26/18 11:00 98.8 91 16 127/75 (92) 98.8 Labs: Laboratory Tests Test 08/25/18 16:35 08/25/18 20:04 08/26/18 07:27 08/26/18 11:35 Glucose (Fingerstick) 134 mg/dL 188 mg/dL 119 mg/dL 115 mg/dL Imaging: Acute Abd Series 08/25 IMPRESSION: No acute abdominal abnormality is detected. PE: GEN: NAD, up to chair LUNGS: NC HEART: RRR ABD: epigastric discomfort NEURO/PSYCH: A & O 3 A/P: COPD exacerbation JESSICA -is on Plavix, ASA, steroids Epigastric discomfort -extensive past GI workup per consult note -- Continue iron and PPI. Check lipase, consider CT A/P. Outpt scopes. DENY MONTESINOS Aug 26, 2018 13:16
[2018-08-26] MEDS: ALBUTEROL SULFATE 2.5 MG/3 ML NEBU. NEB PRN (14:00)
[2018-08-26] MEDS ORDERED: LIDO:MAALOX 1:1 20 ML SINGLE DOSE. PO PRN (14:30)
[2018-08-26] MEDS: VITAMIN B12,B9,B6 COMPLEX 1 TABLET. PO SCH (14:58)
[2018-08-26 15:00] VITALS: BP 134/83
--- NOTE | 2018-08-26 15:21 | PDOC ---
PULMONARY PROGRESS NOTES Subjective no soa Vitals Vital Signs Date Time Temp Pulse Resp B/P (MAP) Pulse Ox O2 Delivery O2 Flow Rate FiO2 08/26/18 15:00 98.9 100 14 134/83 (100) 96 Nasal Cannula 2.0 98.9 General: Alert, No acute distress Lungs: Clear Cardiovascular: S1, S2 Abdomen: Soft, Non-tender, Other Neuro Exam: Alert Extremities: No Edema Skin: Warm Labs Laboratory Tests Test 08/24/18 16:34 08/24/18 21:12 08/25/18 04:20 08/25/18 07:34 Glucose (Fingerstick) 123 mg/dL (70-99) 146 mg/dL (70-99) 134 mg/dL (70-99) White Blood Count 9.6 x10^3/uL (4.0-11.0) Red Blood Count 3.99 x10^6/uL (3.50-5.40) Hemoglobin 8.3 g/dL (12.0-15.5) Hematocrit 27.6 % (36.0-47.0) Mean Corpuscular Volume 69 fL (79-100) Mean Corpuscular Hemoglobin 21 pg (25-35) Mean Corpuscular Hemoglobin Concent 30 g/dL (31-37) Red Cell Distribution Width 19.0 % (11.5-14.5) Platelet Count 302 x10^3/uL (140-400) Neutrophils (%) (Auto) 84 % (31-73) Lymphocytes (%) (Auto) 8 % (24-48) Monocytes (%) (Auto) 7 % (0-9) Eosinophils (%) (Auto) 0 % (0-3) Basophils (%) (Auto) 0 % (0-3) Neutrophils # (Auto) 8.1 x10^3uL (1.8-7.7) Lymphocytes # (Auto) 0.8 x10^3/uL (1.0-4.8) Monocytes # (Auto) 0.7 x10^3/uL (0.0-1.1) Eosinophils # (Auto) 0.0 x10^3/uL (0.0-0.7) Basophils # (Auto) 0.0 x10^3/uL (0.0-0.2) Sodium Level 145 mmol/L (136-145) Potassium Level 4.3 mmol/L (3.5-5.1) Chloride Level 104 mmol/L (98-107) Carbon Dioxide Level 35 mmol/L (21-32) Anion Gap 6 (6-14) Blood Urea Nitrogen 15 mg/dL (7-20) Creatinine 0.8 mg/dL (0.6-1.0) Estimated GFR (Cockcroft-Gault) 88.5 BUN/Creatinine Ratio 19 (6-20) Glucose Level 123 mg/dL (70-99) Calcium Level 8.9 mg/dL (8.5-10.1) Iron Level 29 ug/dL (50-170) Total Iron Binding Capacity 467 ug/dL (250-450) Iron Saturation 6 % (15-34) Total Bilirubin 0.2 mg/dL (0.2-1.0) Aspartate Amino Transf (AST/SGOT) 17 U/L (15-37) Alanine Aminotransferase (ALT/SGPT) 27 U/L (14-59) Alkaline Phosphatase 64 U/L (46-116) Total Protein 7.4 g/dL (6.4-8.2) Albumin 3.8 g/dL (3.4-5.0) Albumin/Globulin Ratio 1.1 (1.0-1.7) Test 08/25/18 10:50 08/25/18 16:35 08/25/18 20:04 08/26/18 07:27 Glucose (Fingerstick) 147 mg/dL (70-99) 134 mg/dL (70-99) 188 mg/dL (70-99) 119 mg/dL (70-99) Test 08/26/18 11:35 08/26/18 13:30 Glucose (Fingerstick) 115 mg/dL (70-99) Lipase 180 U/L (73-393) Laboratory Tests Test 08/25/18 16:35 08/25/18 20:04 08/26/18 07:27 08/26/18 11:35 Glucose (Fingerstick) 134 mg/dL (70-99) 188 mg/dL (70-99) 119 mg/dL (70-99) 115 mg/dL (70-99) Test 08/26/18 13:30 Lipase 180 U/L (73-393) Medications Active Scripts Medications Dose Route/Sig Max Daily Dose Days Date Category Colace (Docusate Sodium) 100 Mg Capsule 100 Mg PO PRN DAILY PRN 30 05/14/18 Rx Azithromycin Tablet (Azithromycin) 250 Mg Tablet 250 Mg PO DAILY 7 05/14/18 Rx Famotidine 20 Mg Tablet 20 Mg PO BID 30 05/14/18 Rx Culturelle (Lactobacillus Rhamnosus Gg) 1 Each Cap.sprink 1 Cap PO BID 14 05/14/18 Rx Prednisone (Prednisone) 10 Mg Tablet 30 Mg PO DAILY 14 05/14/18 Rx [place] Saline Nasal Gel (Sodium Chloride/Aloe Vera) 14.1 Gm Gel..gram. 1 Delilah NS [id number] 14 05/14/18 Rx Daliresp (Roflumilast) 500 Mcg Tablet 500 Mcg PO DAILY 30 05/14/18 Rx Guaifenesin Dm Syrup (Guaifenesin/Dextromethorphan) 5 Ml Syrup 10 Ml PO PRN Q6HRS PRN 30 05/14/18 Rx Flonase Allergy Relief (Fluticasone Propionate) 9.9 Ml [place].susp 2 Sprays NS BID 05/10/18 Reported Zoloft (Sertraline Hcl) 50 Mg Tablet 1 Tab PO HS 05/10/18 Reported Clopidogrel (Clopidogrel Bisulfate) 75 Mg Tablet 1 Tab PO DAILY 02/25/18 Reported Guaifenesin 600 Mg Tablet.er 600 Mg PO DAILY 02/25/18 Reported Azithromycin Packet (Azithromycin) 1 Gm Packet 1 Packet PO ONCE 04/01/17 Rx Potassium Chloride 10 Meq Capsule.er 1 Cap PO DAILY 04/26/15 Rx Nexium Capsule (Esomeprazole Magnesium) 40 Mg Capsule.dr 40 Mg PO DAILYAC 04/18/15 Reported Singulair Tablet (Montelukast Sodium) 10 Mg Tablet 1 Tab PO HS 04/27/14 Reported Lasix (Furosemide) 20 Mg Tablet 1 Tab PO DAILY16 04/27/14 Reported Symbicort 160-4.5 Mcg Inhaler (Budesonide/Formoterol Fumarate) 10.2 Gm Hfa.aer.ad 10.2 Gm IH BID 07/28/13 Reported Albuterol Sulfate Hfa Inhaler (Albuterol Sulfate) 8.5 Gm Hfa.aer.ad 8.5 Gm IH PRN 07/28/13 Reported Duoneb 0.5 Mg-3 Mg/3 Ml Soln (Ipratropium/Albuterol Sulfate) 3 Ml Ampul.neb 3 Ml IH QID 07/28/13 Reported Aspir 81 (Aspirin) 81 Mg Tablet. 81 Mg PO DAILY 07/28/13 Reported Impression . 1. Dyspnea secondary to acute exacerbation of chronic obstructive pulmonary disease. 2. Acute bronchitis. 3. No evidence of any pulmonary embolism or pneumonia based on the CT chest. 4. Postnasal drainage. 5. Chronic hypoxic respiratory failure. Plan . 1. Continue with present antibiotics. 2. Continue with DuoNebs and Pulmicort. 3. IV steroids. 4. Continue with Daliresp. 5. Flonase for postnasal drainage. 6. Pt frustrated with her disease. I discussed with her that the only option would be to evaluate for lung transplant. PFT today TRACEE PIZARRO MD Aug 26, 2018 15:21
--- NOTE | 2018-08-26 15:27 | PDOC ---
PROGRESS NOTES Chief Complaint Chief Complaint dyspnea, ACUTE COPD exacerbation chronic hypoxic and hypercapnic resp failure CAD with 1 stent at RCA accelerated HTN moribid obesity GERD previous smoker normocytic anemia pulmonary HTN wheezing/ bronchospasm anemia of iron deficiency History of Present Illness History of Present Illness iron def. anemia with hypoxia, will give Iron, needs f/u from iron defiency, discussed 02 and tolerance may improve markedly if we can improve her Hgb level cont steroids, abx, nebs, Dr. mock following regular diet, Vitals Vitals Vital Signs Date Time Temp Pulse Resp B/P (MAP) Pulse Ox O2 Delivery O2 Flow Rate FiO2 08/26/18 15:00 98.9 100 14 134/83 (100) 96 Nasal Cannula 2.0 98.9 Physical Exam General: Alert, Oriented X3, Cooperative, moderate distress Lungs: Clear Abdomen: Soft Extremities: No cyanosis Skin: No breakdown Labs LABS Laboratory Tests Test 08/25/18 16:35 08/25/18 20:04 08/26/18 07:27 08/26/18 11:35 Glucose (Fingerstick) 134 mg/dL (70-99) 188 mg/dL (70-99) 119 mg/dL (70-99) 115 mg/dL (70-99) Test 08/26/18 13:30 Lipase 180 U/L (73-393) Review of Systems Review of Systems cough, dyspnea, weakness Comment Review of Relevant I have reviewed the following items paulette (where applicable) has been applied. Labs Laboratory Tests Test 08/24/18 16:34 08/24/18 21:12 08/25/18 04:20 08/25/18 07:34 Glucose (Fingerstick) 123 mg/dL (70-99) 146 mg/dL (70-99) 134 mg/dL (70-99) White Blood Count 9.6 x10^3/uL (4.0-11.0) Red Blood Count 3.99 x10^6/uL (3.50-5.40) Hemoglobin 8.3 g/dL (12.0-15.5) Hematocrit 27.6 % (36.0-47.0) Mean Corpuscular Volume 69 fL (79-100) Mean Corpuscular Hemoglobin 21 pg (25-35) Mean Corpuscular Hemoglobin Concent 30 g/dL (31-37) Red Cell Distribution Width 19.0 % (11.5-14.5) Platelet Count 302 x10^3/uL (140-400) Neutrophils (%) (Auto) 84 % (31-73) Lymphocytes (%) (Auto) 8 % (24-48) Monocytes (%) (Auto) 7 % (0-9) Eosinophils (%) (Auto) 0 % (0-3) Basophils (%) (Auto) 0 % (0-3) Neutrophils # (Auto) 8.1 x10^3uL (1.8-7.7) Lymphocytes # (Auto) 0.8 x10^3/uL (1.0-4.8) Monocytes # (Auto) 0.7 x10^3/uL (0.0-1.1) Eosinophils # (Auto) 0.0 x10^3/uL (0.0-0.7) Basophils # (Auto) 0.0 x10^3/uL (0.0-0.2) Sodium Level 145 mmol/L (136-145) Potassium Level 4.3 mmol/L (3.5-5.1) Chloride Level 104 mmol/L (98-107) Carbon Dioxide Level 35 mmol/L (21-32) Anion Gap 6 (6-14) Blood Urea Nitrogen 15 mg/dL (7-20) Creatinine 0.8 mg/dL (0.6-1.0) Estimated GFR (Cockcroft-Gault) 88.5 BUN/Creatinine Ratio 19 (6-20) Glucose Level 123 mg/dL (70-99) Calcium Level 8.9 mg/dL (8.5-10.1) Iron Level 29 ug/dL (50-170) Total Iron Binding Capacity 467 ug/dL (250-450) Iron Saturation 6 % (15-34) Total Bilirubin 0.2 mg/dL (0.2-1.0) Aspartate Amino Transf (AST/SGOT) 17 U/L (15-37) Alanine Aminotransferase (ALT/SGPT) 27 U/L (14-59) Alkaline Phosphatase 64 U/L (46-116) Total Protein 7.4 g/dL (6.4-8.2) Albumin 3.8 g/dL (3.4-5.0) Albumin/Globulin Ratio 1.1 (1.0-1.7) Test 08/25/18 10:50 08/25/18 16:35 08/25/18 20:04 08/26/18 07:27 Glucose (Fingerstick) 147 mg/dL (70-99) 134 mg/dL (70-99) 188 mg/dL (70-99) 119 mg/dL (70-99) Test 08/26/18 11:35 08/26/18 13:30 Glucose (Fingerstick) 115 mg/dL (70-99) Lipase 180 U/L (73-393) Laboratory Tests Test 08/25/18 16:35 08/25/18 20:04 08/26/18 07:27 08/26/18 11:35 Glucose (Fingerstick) 134 mg/dL (70-99) 188 mg/dL (70-99) 119 mg/dL (70-99) 115 mg/dL (70-99) Test 08/26/18 13:30 Lipase 180 U/L (73-393) Medications Current Medications Albuterol/ Ipratropium (Duoneb) 3 ml 1X ONCE NEB Last administered on at 12:35; Start 08/23/18 at 12:30; Stop 08/23/18 at 12:31; Status DC Methylprednisolone Sodium Succinate (SOLU-Medrol 125MG VIAL) 125 mg 1X ONCE IV Last administered on 08/23/18at 12:38; Start 08/23/18 at 12:30; Stop 08/23/18 at 12:31; Status DC Iohexol (Omnipaque 350 Mg/ml) 90 ml 1X ONCE IV Last administered on 08/23/18at 15:23; Start 08/23/18 at 15:15; Stop 08/23/18 at 15:16; Status DC Info (CONTRAST GIVEN -- Rx MONITORING) 1 each PRN DAILY PRN MC SEE COMMENTS; Start 08/23/18 at 15:15; Stop 08/25/18 at 15:14; Status DC Ondansetron HCl (Zofran) 4 mg PRN Q8HRS PRN IV NAUSEA/VOMITING; Start 08/23/18 at 15:45; Stop 08/24/18 at 15:44; Status DC Fentanyl Citrate (Fentanyl 2ml Vial) 50 mcg PRN Q1HR PRN IV PAIN Last administered on 08/24/18at 11:47; Start 08/23/18 at 15:45; Stop 08/24/18 at 15:44 ; Status DC Acetaminophen (Tylenol) 650 mg PRN Q4HRS PRN PO FEVER Last administered on 08/24 01:44; Start 08/23/18 at 15:45; Stop 08/24/18 at 15:44; Status DC Albuterol/ Ipratropium (Duoneb) 3 ml RTQID NEB Last administered on 08/23/18 19:35; Start 08/23/18 at 16:00; Stop 08/23/18 at 21:19; Status DC Methylprednisolone Sodium Succinate (SOLU-Medrol 40MG VIAL) 40 mg Q8HRS IV Last administered on 08/26/18 14:58; Start 08/23/18 at 22:00 Aspirin (Ecotrin) 81 mg DAILYWBKFT PO Last administered on 08/26/18 08:53; Start 08/24/18 at 08:00 Clopidogrel Bisulfate (Plavix) 75 mg DAILY PO Last administered on 08/26/18 08 :52; Start 08/24/18 at 09:00 Docusate Sodium (Colace) 100 mg PRN DAILY PRN PO CONSTIPATION Last administered on 08/23/18 21:25; Start 08/23/18 at 21:15 Famotidine (Pepcid) 20 mg BID PO Last administered on 08/24/18 09:13; Start at 21:30; Stop 08/24/18 at 13:29; Status DC Furosemide (Lasix) 20 mg DAILY16 PO Last administered on 08/25/18 18:01; Start 08/24/18 at 16:00 Guaifenesin (Mucinex) 600 mg DAILY PO Last administered on 08/26/18 08:52; Start 08/24/18 at 09:00 Guaifenesin (Robitussin Dm) 10 ml PRN Q6HRS PRN PO COUGH Last administered on 18:10; Start 08/23/18 at 21:15 Albuterol/ Ipratropium (Duoneb) 3 ml RTQID IH Last administered on 08/26/18 11 :06; Start 08/24/18 at 08:00 Lactobacillus Rhamnosus (Culturelle) 1 cap BID PO Last administered on 08:52; Start 08/24/18 at 09:00 Potassium Chloride (Klor-Con) 10 meq DAILYWBKFT PO Last administered on 08:53; Start 08/24/18 at 08:00 Sertraline HCl (Zoloft) 50 mg HS PO Last administered on 08/25/18 20:46; Start 08/23/18 at 21:30 Sodium Chloride ([place] Saline Nasal) 1 delilah [id number] NS ; Start 08/24/18 at 07:00; Stop 08/25/18 at 19:50; Status DC Non-Formulary Medication (Budesonide/ Formoterol Fumarate (Symbicort 160-4.5 Mcg Inhaler)) 10.2 gm BID IH ; Start 08/24/18 at 09:00; Status UNV Pantoprazole Sodium (Protonix) 40 mg DAILYAC PO Last administered on 08/24/18 06:19; Start 08/24/18 at 07:30; Stop 08/24/18 at 13:28; Status DC Fluticasone Propionate (Flonase) 2 spray BID NS Last administered on 08/26/18 08:58; Start 08/23/18 at 21:30 Montelukast Sodium (Singulair) 10 mg HS PO Last administered on 08/25/18 20:46 ; Start 08/23/18 at 21:30 Roflumilast (Daliresp) 500 mcg DAILY PO Last administered on 08/26/18 08:52; Start 08/24/18 at 09:00 Doxycycline Hyclate 100 mg/ Dextrose 100 ml @ 50 mls/hr Q12HR IV Last administered on 08/24/18 09:14; Start 08/24/18 at 09:00; Stop 08/24/18 at 10:22 ; Status DC Enoxaparin Sodium (Lovenox 40mg Syringe) 40 mg Q24H SQ Last administered on 20:47; Start 08/23/18 at 21:30 Budesonide (Pulmicort) 0.5 mg RTBID NEB Last administered on 08/26/18 07:13; Start 08/24/18 at 08:00 Albuterol Sulfate (Ventolin Neb Soln) 2.5 mg RTQID NEB ; Start 08/24/18 at 08:00 ; Status UNV Albuterol Sulfate (Ventolin Neb Soln) 2.5 mg PRN Q2HRS PRN NEB SHORTNESS OF BREATH Last administered on 08/26/18at 14:00; Start 08/24/18 at 02:00 Doxycycline Hyclate (Vibra-Tab) 100 mg BID PO Last administered on 08/26/18 08 :53; Start 08/24/18 at 21:00 Insulin Human Lispro (HumaLOG) 0-7 UNITS TIDWMEALS SQ ; Start 08/24/18 at 12:00 Dextrose (Dextrose 50%-Water Syringe) 12.5 gm PRN Q15MIN PRN IV SEE COMMENTS; Start 08/24/18 at 10:30 Multi-Ingredient Mouthwash/Gargle (Gi Cocktail) 20 ml PRN QID PRN PO CHEST PAIN ; Start 08/24/18 at 10:45 Calcium Carbonate/ Glycine (Tums) 500 mg PRN AFTMEALHC PRN PO INDIGESTION; Start 08/24/18 at 10:45 Pantoprazole Sodium (Protonix) 40 mg BIDAC PO Last administered on 08/26/18 08 :53; Start 08/24/18 at 16:30 Ferrous Sulfate (Iron Oral Solution) 300 mg BIDWMEALS PO Last administered on 08:52; Start 08/24/18 at 17:00 Polyethylene Glycol (miraLAX PACKET) 17 gm DAILY PO Last administered on 09:19; Start 08/24/18 at 14:00 Fentanyl Citrate (Fentanyl 2ml Vial) 50 mcg PRN Q2HR PRN IV SEVERE PAIN Last administered on 08/25/18at 01:32; Start 08/25/18 at 01:30 Acetaminophen (Tylenol) 650 mg PRN Q6HRS PRN PO MILD PAIN / TEMP; Start at 01:30 Cyclobenzaprine HCl (Flexeril) 5 mg TID PRN PRN PO MUSCLE SPASMS Last administered on 08/25/18at 20:46; Start 08/25/18 at 19:45 Iron Sucrose 500 mg/Sodium Chloride 275 ml @ 78.571 mls/ hr 1X ONCE IV Last administered on 08/26/18at 14:59; Start 08/26/18 at 13:00; Stop 08/26/18 at 16:29 Vitamin B Complex (Folbic Tablet) 1 tab DAILY PO Last administered on at 14:58; Start 08/26/18 at 13:00 Multi-Ingredient Mouthwash/Gargle (Gi Cocktail) 20 ml PRN QID PRN PO upper abd pain/pain under ribs; Start 08/26/18 at 14:30 Active Scripts Active Colace (Docusate Sodium) 100 Mg Capsule 100 Mg PO PRN DAILY PRN 30 Days Azithromycin Tablet (Azithromycin) 250 Mg Tablet 250 Mg PO DAILY 7 Days Famotidine 20 Mg Tablet 20 Mg PO BID 30 Days Culturelle (Lactobacillus Rhamnosus Gg) 1 Each Cap.sprink 1 Cap PO BID 14 Days Prednisone (Prednisone) 10 Mg Tablet 30 Mg PO DAILY 14 Days [place] Saline Nasal Gel (Sodium Chloride/Aloe Vera) 14.1 Gm Gel..gram. 1 Delilah NS [id number] 14 Days Daliresp (Roflumilast) 500 Mcg Tablet 500 Mcg PO DAILY 30 Days Guaifenesin Dm Syrup (Guaifenesin/Dextromethorphan) 5 Ml Syrup 10 Ml PO PRN Q6HRS PRN 30 Days Azithromycin Packet (Azithromycin) 1 Gm Packet 1 Packet PO ONCE Potassium Chloride 10 Meq Capsule.er 1 Cap PO DAILY Reported Flonase Allergy Relief (Fluticasone Propionate) 9.9 Ml [place].susp 2 Sprays NS BID Zoloft (Sertraline Hcl) 50 Mg Tablet 1 Tab PO HS Clopidogrel (Clopidogrel Bisulfate) 75 Mg Tablet 1 Tab PO DAILY Guaifenesin 600 Mg Tablet.er 600 Mg PO DAILY Nexium Capsule (Esomeprazole Magnesium) 40 Mg Capsule.dr 40 Mg PO DAILYAC Singulair Tablet (Montelukast Sodium) 10 Mg Tablet 1 Tab PO HS Lasix (Furosemide) 20 Mg Tablet 1 Tab PO DAILY16 Symbicort 160-4.5 Mcg Inhaler (Budesonide/Formoterol Fumarate) 10.2 Gm Hfa.aer.ad 10.2 Gm IH BID Albuterol Sulfate Hfa Inhaler (Albuterol Sulfate) 8.5 Gm Hfa.aer.ad 8.5 Gm IH PRN Duoneb 0.5 Mg-3 Mg/3 Ml Soln (Ipratropium/Albuterol Sulfate) 3 Ml Ampul.neb 3 Ml IH QID Aspir 81 (Aspirin) 81 Mg Tablet.dr 81 Mg PO DAILY Vitals/I & O Vital Sign - Last 24 Hours 08/25/18 08/25/18 08/25/18 08/25/18 15:27 19:00 20:00 21:11 Temp 99.1 99.1 Pulse 92 Resp 18 B/P (MAP) 126/76 (93) Pulse Ox 93 95 O2 Delivery Nasal Cannula Nasal Cannula Nasal Cannula Nasal Cannula O2 Flow Rate 2.0 2.0 2.0 2.0 08/25/18 08/26/18 08/26/18 08/26/18 23:00 03:00 07:00 07:15 Temp 99.0 98.9 98.4 99.0 98.9 98.4 Pulse 81 83 74 Resp 18 18 16 B/P (MAP) 139/81 (100) 150/95 (113) 134/80 (98) Pulse Ox 94 97 98 95 O2 Delivery Nasal Cannula Nasal Cannula Nasal Cannula Nasal Cannula O2 Flow Rate 2.0 2.0 2.0 2.0 08/26/18 08/26/18 08/26/18 08/26/18 08:00 11:00 11:08 14:01 Temp 98.8 98.8 Pulse 91 Resp 16 B/P (MAP) 127/75 (92) Pulse Ox 93 95 O2 Delivery Nasal Cannula Nasal Cannula Nasal Cannula Nasal Cannula O2 Flow Rate 2.0 2.0 2.0 2.0 08/26/18 15:00 Temp 98.9 98.9 Pulse 100 Resp 14 B/P (MAP) 134/83 (100) Pulse Ox 96 O2 Delivery Nasal Cannula O2 Flow Rate 2.0 Intake and Output 08/25/18 08/25/18 08/26/18 14:59 22:59 06:59 Intake Total 400 ml 180 ml 0 ml Balance 400 ml 180 ml 0 ml ROSEMARY VAUGHN MD Aug 26, 2018 15:27
--- NOTE | 2018-08-26 15:48 | NUR ---
SW following. Discussed with RN, no SW needs at this time, possible discharge home today with self care.
[2018-08-26] MEDS: FUROSEMIDE 20 MG TABLET PO SCH (16:57)
--- NOTE | 2018-08-26 18:25 | NUR ---
PATIENT PUT HER CALL LIGHT ON, UPON ENTERING THE ROOM PATIENT INFORMED THIS EGG GRADER THAT HER HANDS WERE SWELLING UP AND THAT SHE WAS ITCHING ON HER HANDS, UPON ASSESSMENT PATIENT HAD 1-2 PLUS EDEMA IN BILATERAL HANDS AND WAS NOT QUITE ABLE TO MAKE A FIST OR SQUEEZE MY HANDS. VENOFER INFUSION WAS COMPLETE AND STOPPED PER THIS EGG GRADER, CALL PLACED TO MD PER NOC NURSE FOR ORDERS, IRON SUCROSE PLACED ON ALLERGY LIST THIS IS THE ONLY NEW MEDICATION THAT THE PATIENT HAS RECEIVED.
[2018-08-26 19:00] VITALS: BP 124/83
[2018-08-26] MEDS: diphenhydrAMINE HCL 25 MG CAPSULE PO PRN (19:42)
[2018-08-26] MEDS: SERTRALINE 50 MG TABLET. PO SCH (20:53)
[2018-08-26] MEDS: MONTELUKAST SODIUM 10 MG TABLET. PO SCH (20:53)
[2018-08-26] MEDS: ENOXAPARIN 40 MG/0.4 ML SYRINGE. SQ SCH (20:54)
[2018-08-26] MEDS: guaiFENesin DM 200MG/20MG 10 ML SYRUP PO PRN (22:52)
[2018-08-26 23:00] VITALS: BP 113/80
[2018-08-27] MEDS: diphenhydrAMINE HCL 25 MG CAPSULE PO PRN (02:02)
[2018-08-27] MEDS: CYCLOBENZAPRINE 10 MG TABLET. PO PRN ×2 (02:02→21:16)
[2018-08-27 03:00] VITALS: BP 144/86
[2018-08-27] MEDS: ALBUTEROL SULFATE 2.5 MG/3 ML NEBU. NEB PRN (04:21)
[2018-08-27 06:40] LABS: BASO % 0 % (0-3); EOS % 0 % (0-3); HEMATOCRIT 30.1 % (36.0-47.0); HEMOGLOBIN 8.9 g/dL (12.0-15.5); LYMPH # 1.2 x10^3/uL (1.0-4.8); LYMPH % 7 % (24-48); MEAN CORPUSCULAR HEMOGLOBIN 21 pg (25-35); MEAN CORPUSCULAR HGB CONC 29 g/dL (31-37); MEAN CORPUSCULAR VOLUME 70 fL (79-100); MONO # 1.4 x10^3/uL (0.0-1.1); MONO % 8 % (0-9); NEUT # 14.4 x10^3uL (1.8-7.7); NEUT % 85 % (31-73); PLATELET COUNT 301 x10^3/uL (140-400); RED BLOOD COUNT 4.29 x10^6/uL (3.50-5.40); RED CELL DISTRIBUTION WIDTH 18.8 % (11.5-14.5); RETIC COUNT 2.4 % (0.5-2.5)
[2018-08-27] MEDS: methylPREDNISolone SOD SUCC PF 40 MG/ML VIAL. IV SCH ×3 (06:40→21:03)
[2018-08-27 07:00] VITALS: BP 149/96
[2018-08-27 07:00] LABS: CALCIUM 8.3 mg/dL (8.5-10.1); CREATININE 0.8 mg/dL (0.6-1.0); GFR 88.5; POTASSIUM 4.1 mmol/L (3.5-5.1); TOTAL BILIRUBIN 0.2 mg/dL (0.2-1.0); TOTAL PROTEIN 5.9 g/dL (6.4-8.2)
[2018-08-27] MEDS: INSULIN LISPRO 300 UNITS/3 ML INSULN.PEN. SQ SCH ×3 (08:00→18:03)
[2018-08-27 08:10] LABS: % LYMPHS 11 % (24-48); % MONOS 6 % (0-10); % SEGS 83 % (35-66); PLT ESTIMATE ADEQUATE (ADEQUATE)
[2018-08-27 08:11] LABS: ANISOCYTOSIS SLIGHT; HYPOCHROMIA MARKED; POIKILOCYTOSIS PRESENT
[2018-08-27 08:12] LABS: MICROCYTOSIS MOD
[2018-08-27] MEDS: IPRATRPIUM/ALBUTEROL 0.5/2.5MG 3 ML NEBU. IH SCH ×4 (08:12→19:13)
[2018-08-27 08:13] LABS: OVALOCYTES PRESENT; SCHISTOCYTES OCC
[2018-08-27] MEDS: BUDESONIDE 0.5 MG/2 ML NEBU. NEB SCH ×2 (08:13→19:13)
[2018-08-27] MEDS: VITAMIN B12,B9,B6 COMPLEX 1 TABLET. PO SCH (08:42)
[2018-08-27] MEDS: ROFLUMILAST 500 MCG TABLET. PO SCH (08:42)
[2018-08-27] MEDS: CLOPIDOGREL BISULFATE 75 MG TABLET PO SCH (08:42)
[2018-08-27] MEDS: FLUTICASONE 50MCG/NASAL SPRAY 16GM BOTTLE. NS SCH ×2 (08:42→21:25)
[2018-08-27] MEDS: LACTOBACILLUS RHAMNOSUS GG 1 CAPSULE. PO SCH ×2 (08:42→21:02)
[2018-08-27] MEDS: DOXYCYCLINE HYCLATE 100 MG TABLET PO SCH ×2 (08:42→21:02)
[2018-08-27] MEDS: PANTOPRAZOLE 40 MG TABLET.DR. PO SCH ×2 (08:43→16:45)
[2018-08-27] MEDS: POTASSIUM CHLORIDE 10 MEQ TABLET.ER. PO SCH (08:43)
[2018-08-27] MEDS: ASPIRIN ENTERIC COATED 81 MG TABLET.DR. PO SCH (08:43)
[2018-08-27] MEDS: FERROUS SULFATE ORAL 300 MG/5 ML SOLUTION. PO SCH ×2 (08:49→16:45)
[2018-08-27] MEDS: POLYETHYLENE GLYCOL 3350 17 GM PACKET. PO SCH (08:52)
--- NOTE | 2018-08-27 09:08 | PDOC ---
PULMONARY PROGRESS NOTES Subjective has sob, cough, on home 02. Vitals Vital Signs Date Time Temp Pulse Resp B/P (MAP) Pulse Ox O2 Delivery O2 Flow Rate FiO2 08/27/18 08:14 93 Nasal Cannula 2.0 08/27/18 07:00 98.6 85 19 149/96 (113) 98.6 General: Alert, No acute distress HEENT: Other (nc at perrl) Lungs: Wheezing Cardiovascular: S1, S2 Abdomen: Soft, Non-tender, Other Neuro Exam: Alert Extremities: No Edema Skin: Warm Labs Laboratory Tests Test 08/25/18 10:50 08/25/18 16:35 08/25/18 20:04 08/26/18 07:27 Glucose (Fingerstick) 147 mg/dL (70-99) 134 mg/dL (70-99) 188 mg/dL (70-99) 119 mg/dL (70-99) Test 08/26/18 11:35 08/26/18 13:30 08/26/18 16:47 08/26/18 20:40 Glucose (Fingerstick) 115 mg/dL (70-99) 184 mg/dL (70-99) 210 mg/dL (70-99) Lipase 180 U/L (73-393) Test 08/27/18 05:52 08/27/18 07:45 White Blood Count 17.0 x10^3/uL (4.0-11.0) Red Blood Count 4.29 x10^6/uL (3.50-5.40) Hemoglobin 8.9 g/dL (12.0-15.5) Hematocrit 30.1 % (36.0-47.0) Mean Corpuscular Volume 70 fL (79-100) Mean Corpuscular Hemoglobin 21 pg (25-35) Mean Corpuscular Hemoglobin Concent 29 g/dL (31-37) Red Cell Distribution Width 18.8 % (11.5-14.5) Platelet Count 301 x10^3/uL (140-400) Neutrophils (%) (Auto) 85 % (31-73) Lymphocytes (%) (Auto) 7 % (24-48) Monocytes (%) (Auto) 8 % (0-9) Eosinophils (%) (Auto) 0 % (0-3) Basophils (%) (Auto) 0 % (0-3) Neutrophils # (Auto) 14.4 x10^3uL (1.8-7.7) Lymphocytes # (Auto) 1.2 x10^3/uL (1.0-4.8) Monocytes # (Auto) 1.4 x10^3/uL (0.0-1.1) Eosinophils # (Auto) 0.0 x10^3/uL (0.0-0.7) Basophils # (Auto) 0.0 x10^3/uL (0.0-0.2) Segmented Neutrophils % 83 % (35-66) Lymphocytes % 11 % (24-48) Monocytes % 6 % (0-10) Platelet Estimate Adequate (ADEQUATE) Hypochromasia Marked Poikilocytosis Present Anisocytosis Slight Microcytosis Mod Ovalocytes Present Schistocytes Occ Reticulocyte Count (auto) 2.4 % (0.5-2.5) Sodium Level 145 mmol/L (136-145) Potassium Level 4.1 mmol/L (3.5-5.1) Chloride Level 104 mmol/L (98-107) Carbon Dioxide Level 35 mmol/L (21-32) Anion Gap 6 (6-14) Blood Urea Nitrogen 16 mg/dL (7-20) Creatinine 0.8 mg/dL (0.6-1.0) Estimated GFR (Cockcroft-Gault) 88.5 BUN/Creatinine Ratio 20 (6-20) Glucose Level 142 mg/dL (70-99) Calcium Level 8.3 mg/dL (8.5-10.1) Total Bilirubin 0.2 mg/dL (0.2-1.0) Aspartate Amino Transf (AST/SGOT) 11 U/L (15-37) Alanine Aminotransferase (ALT/SGPT) 24 U/L (14-59) Alkaline Phosphatase 52 U/L (46-116) Total Protein 5.9 g/dL (6.4-8.2) Albumin 3.0 g/dL (3.4-5.0) Albumin/Globulin Ratio 1.0 (1.0-1.7) Glucose (Fingerstick) 119 mg/dL (70-99) Laboratory Tests Test 08/26/18 11:35 08/26/18 13:30 08/26/18 16:47 08/26/18 20:40 Glucose (Fingerstick) 115 mg/dL (70-99) 184 mg/dL (70-99) 210 mg/dL (70-99) Lipase 180 U/L (73-393) Test 08/27/18 05:52 08/27/18 07:45 White Blood Count 17.0 x10^3/uL (4.0-11.0) Red Blood Count 4.29 x10^6/uL (3.50-5.40) Hemoglobin 8.9 g/dL (12.0-15.5) Hematocrit 30.1 % (36.0-47.0) Mean Corpuscular Volume 70 fL (79-100) Mean Corpuscular Hemoglobin 21 pg (25-35) Mean Corpuscular Hemoglobin Concent 29 g/dL (31-37) Red Cell Distribution Width 18.8 % (11.5-14.5) Platelet Count 301 x10^3/uL (140-400) Neutrophils (%) (Auto) 85 % (31-73) Lymphocytes (%) (Auto) 7 % (24-48) Monocytes (%) (Auto) 8 % (0-9) Eosinophils (%) (Auto) 0 % (0-3) Basophils (%) (Auto) 0 % (0-3) Neutrophils # (Auto) 14.4 x10^3uL (1.8-7.7) Lymphocytes # (Auto) 1.2 x10^3/uL (1.0-4.8) Monocytes # (Auto) 1.4 x10^3/uL (0.0-1.1) Eosinophils # (Auto) 0.0 x10^3/uL (0.0-0.7) Basophils # (Auto) 0.0 x10^3/uL (0.0-0.2) Segmented Neutrophils % 83 % (35-66) Lymphocytes % 11 % (24-48) Monocytes % 6 % (0-10) Platelet Estimate Adequate (ADEQUATE) Hypochromasia Marked Poikilocytosis Present Anisocytosis Slight Microcytosis Mod Ovalocytes Present Schistocytes Occ Reticulocyte Count (auto) 2.4 % (0.5-2.5) Sodium Level 145 mmol/L (136-145) Potassium Level 4.1 mmol/L (3.5-5.1) Chloride Level 104 mmol/L (98-107) Carbon Dioxide Level 35 mmol/L (21-32) Anion Gap 6 (6-14) Blood Urea Nitrogen 16 mg/dL (7-20) Creatinine 0.8 mg/dL (0.6-1.0) Estimated GFR (Cockcroft-Gault) 88.5 BUN/Creatinine Ratio 20 (6-20) Glucose Level 142 mg/dL (70-99) Calcium Level 8.3 mg/dL (8.5-10.1) Total Bilirubin 0.2 mg/dL (0.2-1.0) Aspartate Amino Transf (AST/SGOT) 11 U/L (15-37) Alanine Aminotransferase (ALT/SGPT) 24 U/L (14-59) Alkaline Phosphatase 52 U/L (46-116) Total Protein 5.9 g/dL (6.4-8.2) Albumin 3.0 g/dL (3.4-5.0) Albumin/Globulin Ratio 1.0 (1.0-1.7) Glucose (Fingerstick) 119 mg/dL (70-99) Medications Active Scripts Medications Dose Route/Sig Max Daily Dose Days Date Category Colace (Docusate Sodium) 100 Mg Capsule 100 Mg PO PRN DAILY PRN 30 05/14/18 Rx Azithromycin Tablet (Azithromycin) 250 Mg Tablet 250 Mg PO DAILY 7 05/14/18 Rx Famotidine 20 Mg Tablet 20 Mg PO BID 30 05/14/18 Rx Culturelle (Lactobacillus Rhamnosus Gg) 1 Each Cap.sprink 1 Cap PO BID 14 05/14/18 Rx Prednisone (Prednisone) 10 Mg Tablet 30 Mg PO DAILY 14 05/14/18 Rx [place] Saline Nasal Gel (Sodium Chloride/Aloe Vera) 14.1 Gm Gel..gram. 1 Delilah NS [id number] 14 05/14/18 Rx Daliresp (Roflumilast) 500 Mcg Tablet 500 Mcg PO DAILY 30 05/14/18 Rx Guaifenesin Dm Syrup (Guaifenesin/Dextromethorphan) 5 Ml Syrup 10 Ml PO PRN Q6HRS PRN 30 05/14/18 Rx Flonase Allergy Relief (Fluticasone Propionate) 9.9 Ml [place].susp 2 Sprays NS BID 05/10/18 Reported Zoloft (Sertraline Hcl) 50 Mg Tablet 1 Tab PO HS 05/10/18 Reported Clopidogrel (Clopidogrel Bisulfate) 75 Mg Tablet 1 Tab PO DAILY 02/25/18 Reported Guaifenesin 600 Mg Tablet.er 600 Mg PO DAILY 02/25/18 Reported Azithromycin Packet (Azithromycin) 1 Gm Packet 1 Packet PO ONCE 04/01/17 Rx Potassium Chloride 10 Meq Capsule.er 1 Cap PO DAILY 04/26/15 Rx Nexium Capsule (Esomeprazole Magnesium) 40 Mg Capsule. 40 Mg PO DAILYAC 04/18/15 Reported Singulair Tablet (Montelukast Sodium) 10 Mg Tablet 1 Tab PO HS 04/27/14 Reported Lasix (Furosemide) 20 Mg Tablet 1 Tab PO DAILY16 04/27/14 Reported Symbicort 160-4.5 Mcg Inhaler (Budesonide/Formoterol Fumarate) 10.2 Gm Hfa.aer.ad 10.2 Gm IH BID 07/28/13 Reported Albuterol Sulfate Hfa Inhaler (Albuterol Sulfate) 8.5 Gm Hfa.aer.ad 8.5 Gm IH PRN 07/28/13 Reported Duoneb 0.5 Mg-3 Mg/3 Ml Soln (Ipratropium/Albuterol Sulfate) 3 Ml Ampul.neb 3 Ml IH QID 07/28/13 Reported Aspir 81 (Aspirin) 81 Mg Tablet. 81 Mg PO DAILY 07/28/13 Reported Impression . 1. Dyspnea secondary to acute exacerbation of chronic obstructive pulmonary disease. 2. Acute bronchitis. 3. No evidence of any pulmonary embolism or pneumonia based on the CT chest. 4. Postnasal drainage. 5. Chronic hypoxic respiratory failure. Plan . 1. Continue with present antibiotics. 2. Continue with DuoNebs and Pulmicort. 3. IV steroids, no dose change, still has wheezing, cough. 4. Continue with Daliresp. 5. Flonase for postnasal drainage. 6. dr mock discussed options with her including evaluation for lung transplant. discussed w pt TRINY CHEN MD Aug 27, 2018 09:08
[2018-08-27 10:42] VITALS: BP 129/73
[2018-08-27 14:55] VITALS: BP 133/77
[2018-08-27] MEDS: FUROSEMIDE 20 MG TABLET PO SCH (16:45)
[2018-08-27 19:00] VITALS: BP 114/73
[2018-08-27] MEDS: ENOXAPARIN 40 MG/0.4 ML SYRINGE. SQ SCH (21:01)
[2018-08-27] MEDS: SERTRALINE 50 MG TABLET. PO SCH (21:02)
[2018-08-27] MEDS: MONTELUKAST SODIUM 10 MG TABLET. PO SCH (21:02)
[2018-08-27] MEDS: guaiFENesin DM 200MG/20MG 10 ML SYRUP PO PRN (21:16)
[2018-08-27 23:00] VITALS: BP 125/75
[2018-08-28 03:00] VITALS: BP 133/88
[2018-08-28] MEDS: methylPREDNISolone SOD SUCC PF 40 MG/ML VIAL. IV SCH ×2 (05:56→20:26)
[2018-08-28] MEDS: IPRATRPIUM/ALBUTEROL 0.5/2.5MG 3 ML NEBU. IH SCH ×4 (07:29→19:47)
[2018-08-28] MEDS: BUDESONIDE 0.5 MG/2 ML NEBU. NEB SCH ×2 (07:29→19:48)
[2018-08-28] MEDS: INSULIN LISPRO 300 UNITS/3 ML INSULN.PEN. SQ SCH ×3 (08:00→16:29)
[2018-08-28] MEDS: PANTOPRAZOLE 40 MG TABLET.DR. PO SCH ×2 (08:30→16:28)
[2018-08-28] MEDS: ASPIRIN ENTERIC COATED 81 MG TABLET.DR. PO SCH (08:30)
[2018-08-28] MEDS: VITAMIN B12,B9,B6 COMPLEX 1 TABLET. PO SCH (08:30)
[2018-08-28] MEDS: ROFLUMILAST 500 MCG TABLET. PO SCH (08:30)
[2018-08-28] MEDS: DOXYCYCLINE HYCLATE 100 MG TABLET PO SCH ×2 (08:30→20:25)
[2018-08-28] MEDS: FERROUS SULFATE ORAL 300 MG/5 ML SOLUTION. PO SCH ×2 (08:30→16:29)
[2018-08-28] MEDS: POLYETHYLENE GLYCOL 3350 17 GM PACKET. PO SCH (08:30)
[2018-08-28] MEDS: POTASSIUM CHLORIDE 10 MEQ TABLET.ER. PO SCH (08:31)
[2018-08-28] MEDS: FLUTICASONE 50MCG/NASAL SPRAY 16GM BOTTLE. NS SCH ×2 (08:31→20:24)
[2018-08-28] MEDS: LACTOBACILLUS RHAMNOSUS GG 1 CAPSULE. PO SCH ×2 (08:32→20:25)
[2018-08-28] MEDS: CLOPIDOGREL BISULFATE 75 MG TABLET PO SCH (08:33)
--- NOTE | 2018-08-28 09:02 | PDOC ---
PULMONARY PROGRESS NOTES Subjective sob slightly better, has cough, nasal congestion, on home 02. Vitals Vital Signs Date Time Temp Pulse Resp B/P (MAP) Pulse Ox O2 Delivery O2 Flow Rate FiO2 08/28/18 07:29 96 Nasal Cannula 2.0 08/28/18 07:00 98.2 87 18 98.2 ROS: No Nausea General: Alert, No acute distress HEENT: Other (nc at perrl) Lungs: Other (deminished bs) Cardiovascular: S1, S2 Abdomen: Soft, Non-tender, Other Neuro Exam: Alert Extremities: No Edema Skin: Warm Labs Laboratory Tests Test 08/26/18 11:35 08/26/18 13:30 08/26/18 16:47 08/26/18 20:40 Glucose (Fingerstick) 115 mg/dL (70-99) 184 mg/dL (70-99) 210 mg/dL (70-99) Lipase 180 U/L (73-393) Test 08/27/18 05:52 08/27/18 07:45 08/27/18 11:47 08/27/18 17:49 White Blood Count 17.0 x10^3/uL (4.0-11.0) Red Blood Count 4.29 x10^6/uL (3.50-5.40) Hemoglobin 8.9 g/dL (12.0-15.5) Hematocrit 30.1 % (36.0-47.0) Mean Corpuscular Volume 70 fL (79-100) Mean Corpuscular Hemoglobin 21 pg (25-35) Mean Corpuscular Hemoglobin Concent 29 g/dL (31-37) Red Cell Distribution Width 18.8 % (11.5-14.5) Platelet Count 301 x10^3/uL (140-400) Neutrophils (%) (Auto) 85 % (31-73) Lymphocytes (%) (Auto) 7 % (24-48) Monocytes (%) (Auto) 8 % (0-9) Eosinophils (%) (Auto) 0 % (0-3) Basophils (%) (Auto) 0 % (0-3) Neutrophils # (Auto) 14.4 x10^3uL (1.8-7.7) Lymphocytes # (Auto) 1.2 x10^3/uL (1.0-4.8) Monocytes # (Auto) 1.4 x10^3/uL (0.0-1.1) Eosinophils # (Auto) 0.0 x10^3/uL (0.0-0.7) Basophils # (Auto) 0.0 x10^3/uL (0.0-0.2) Segmented Neutrophils % 83 % (35-66) Lymphocytes % 11 % (24-48) Monocytes % 6 % (0-10) Platelet Estimate Adequate (ADEQUATE) Hypochromasia Marked Poikilocytosis Present Anisocytosis Slight Microcytosis Mod Ovalocytes Present Schistocytes Occ Reticulocyte Count (auto) 2.4 % (0.5-2.5) Sodium Level 145 mmol/L (136-145) Potassium Level 4.1 mmol/L (3.5-5.1) Chloride Level 104 mmol/L (98-107) Carbon Dioxide Level 35 mmol/L (21-32) Anion Gap 6 (6-14) Blood Urea Nitrogen 16 mg/dL (7-20) Creatinine 0.8 mg/dL (0.6-1.0) Estimated GFR (Cockcroft-Gault) 88.5 BUN/Creatinine Ratio 20 (6-20) Glucose Level 142 mg/dL (70-99) Calcium Level 8.3 mg/dL (8.5-10.1) Total Bilirubin 0.2 mg/dL (0.2-1.0) Aspartate Amino Transf (AST/SGOT) 11 U/L (15-37) Alanine Aminotransferase (ALT/SGPT) 24 U/L (14-59) Alkaline Phosphatase 52 U/L (46-116) Total Protein 5.9 g/dL (6.4-8.2) Albumin 3.0 g/dL (3.4-5.0) Albumin/Globulin Ratio 1.0 (1.0-1.7) Glucose (Fingerstick) 119 mg/dL (70-99) 180 mg/dL (70-99) 221 mg/dL (70-99) Test 08/27/18 20:51 08/28/18 07:34 Glucose (Fingerstick) 242 mg/dL (70-99) 117 mg/dL (70-99) Laboratory Tests Test 08/27/18 11:47 08/27/18 17:49 08/27/18 20:51 08/28/18 07:34 Glucose (Fingerstick) 180 mg/dL (70-99) 221 mg/dL (70-99) 242 mg/dL (70-99) 117 mg/dL (70-99) Medications Active Scripts Medications Dose Route/Sig Max Daily Dose Days Date Category Colace (Docusate Sodium) 100 Mg Capsule 100 Mg PO PRN DAILY PRN 30 05/14/18 Rx Azithromycin Tablet (Azithromycin) 250 Mg Tablet 250 Mg PO DAILY 7 05/14/18 Rx Famotidine 20 Mg Tablet 20 Mg PO BID 30 05/14/18 Rx Culturelle (Lactobacillus Rhamnosus Gg) 1 Each Cap.sprink 1 Cap PO BID 14 05/14/18 Rx Prednisone (Prednisone) 10 Mg Tablet 30 Mg PO DAILY 14 05/14/18 Rx [place] Saline Nasal Gel (Sodium Chloride/Aloe Vera) 14.1 Gm Gel..gram. 1 Delilah NS [id number] 14 05/14/18 Rx Daliresp (Roflumilast) 500 Mcg Tablet 500 Mcg PO DAILY 30 05/14/18 Rx Guaifenesin Dm Syrup (Guaifenesin/Dextromethorphan) 5 Ml Syrup 10 Ml PO PRN Q6HRS PRN 30 05/14/18 Rx Flonase Allergy Relief (Fluticasone Propionate) 9.9 Ml [place].susp 2 Sprays NS BID 05/10/18 Reported Zoloft (Sertraline Hcl) 50 Mg Tablet 1 Tab PO HS 05/10/18 Reported Clopidogrel (Clopidogrel Bisulfate) 75 Mg Tablet 1 Tab PO DAILY 02/25/18 Reported Guaifenesin 600 Mg Tablet.er 600 Mg PO DAILY 02/25/18 Reported Azithromycin Packet (Azithromycin) 1 Gm Packet 1 Packet PO ONCE 04/01/17 Rx Potassium Chloride 10 Meq Capsule.er 1 Cap PO DAILY 04/26/15 Rx Nexium Capsule (Esomeprazole Magnesium) 40 Mg Capsule.dr 40 Mg PO DAILYAC 04/18/15 Reported Singulair Tablet (Montelukast Sodium) 10 Mg Tablet 1 Tab PO HS 04/27/14 Reported Lasix (Furosemide) 20 Mg Tablet 1 Tab PO DAILY16 04/27/14 Reported Symbicort 160-4.5 Mcg Inhaler (Budesonide/Formoterol Fumarate) 10.2 Gm Hfa.aer.ad 10.2 Gm IH BID 07/28/13 Reported Albuterol Sulfate Hfa Inhaler (Albuterol Sulfate) 8.5 Gm Hfa.aer.ad 8.5 Gm IH PRN 07/28/13 Reported Duoneb 0.5 Mg-3 Mg/3 Ml Soln (Ipratropium/Albuterol Sulfate) 3 Ml Ampul.neb 3 Ml IH QID 07/28/13 Reported Aspir 81 (Aspirin) 81 Mg Tablet. 81 Mg PO DAILY 07/28/13 Reported Impression . 1. Dyspnea secondary to acute exacerbation of chronic obstructive pulmonary disease. 2. Acute bronchitis. 3. No evidence of any pulmonary embolism or pneumonia based on the CT chest. 4. Postnasal drainage. 5. Chronic hypoxic respiratory failure. Plan . 1. Continue with present antibiotics. 2. Continue with DuoNebs and Pulmicort. 3. will change solumedrol to bid 4. Continue with Daliresp. 5. Flonase for postnasal drainage. add ns prn, cont singulair 6. dr mock discussed options with her including evaluation for lung transplant. 7. increase activity discussed w TRINY Dominguez MD Aug 28, 2018 09:02
[2018-08-28 10:46] VITALS: BP 144/79
--- NOTE | 2018-08-28 13:11 | PDOC ---
PROGRESS NOTES Chief Complaint Chief Complaint dyspnea, ACUTE COPD exacerbation chronic hypoxic and hypercapnic resp failure CAD with 1 stent at RCA accelerated HTN moribid obesity GERD previous smoker normocytic anemia pulmonary HTN wheezing/ bronchospasm anemia of iron deficiency History of Present Illness History of Present Illness iron def. anemia with hypoxia, will give Iron, needs f/u from iron defiency, discussed 02 and tolerance may improve markedly if we can improve her Hgb level cont steroids, abx, nebs, Dr. mock following regular diet, Vitals Vitals Vital Signs Date Time Temp Pulse Resp B/P (MAP) Pulse Ox O2 Delivery O2 Flow Rate FiO2 08/28/18 11:12 Nasal Cannula 3.0 08/28/18 10:46 98.6 87 18 144/79 (100) 92 98.6 Physical Exam General: Alert, Oriented X3, Cooperative, moderate distress Lungs: Wheezing (left base), Other (deminished bs) Abdomen: Soft Extremities: No cyanosis Skin: No breakdown Labs LABS Laboratory Tests Test 08/27/18 17:49 08/27/18 20:51 08/28/18 07:34 08/28/18 11:27 Glucose (Fingerstick) 221 mg/dL (70-99) 242 mg/dL (70-99) 117 mg/dL (70-99) 198 mg/dL (70-99) Review of Systems Review of Systems cough, dyspnea, weakness, Comment Review of Relevant I have reviewed the following items paulette (where applicable) has been applied. Labs Laboratory Tests Test 08/26/18 13:30 08/26/18 16:47 08/26/18 20:40 08/27/18 05:52 Lipase 180 U/L (73-393) Glucose (Fingerstick) 184 mg/dL (70-99) 210 mg/dL (70-99) White Blood Count 17.0 x10^3/uL (4.0-11.0) Red Blood Count 4.29 x10^6/uL (3.50-5.40) Hemoglobin 8.9 g/dL (12.0-15.5) Hematocrit 30.1 % (36.0-47.0) Mean Corpuscular Volume 70 fL (79-100) Mean Corpuscular Hemoglobin 21 pg (25-35) Mean Corpuscular Hemoglobin Concent 29 g/dL (31-37) Red Cell Distribution Width 18.8 % (11.5-14.5) Platelet Count 301 x10^3/uL (140-400) Neutrophils (%) (Auto) 85 % (31-73) Lymphocytes (%) (Auto) 7 % (24-48) Monocytes (%) (Auto) 8 % (0-9) Eosinophils (%) (Auto) 0 % (0-3) Basophils (%) (Auto) 0 % (0-3) Neutrophils # (Auto) 14.4 x10^3uL (1.8-7.7) Lymphocytes # (Auto) 1.2 x10^3/uL (1.0-4.8) Monocytes # (Auto) 1.4 x10^3/uL (0.0-1.1) Eosinophils # (Auto) 0.0 x10^3/uL (0.0-0.7) Basophils # (Auto) 0.0 x10^3/uL (0.0-0.2) Segmented Neutrophils % 83 % (35-66) Lymphocytes % 11 % (24-48) Monocytes % 6 % (0-10) Platelet Estimate Adequate (ADEQUATE) Hypochromasia Marked Poikilocytosis Present Anisocytosis Slight Microcytosis Mod Ovalocytes Present Schistocytes Occ Reticulocyte Count (auto) 2.4 % (0.5-2.5) Sodium Level 145 mmol/L (136-145) Potassium Level 4.1 mmol/L (3.5-5.1) Chloride Level 104 mmol/L (98-107) Carbon Dioxide Level 35 mmol/L (21-32) Anion Gap 6 (6-14) Blood Urea Nitrogen 16 mg/dL (7-20) Creatinine 0.8 mg/dL (0.6-1.0) Estimated GFR (Cockcroft-Gault) 88.5 BUN/Creatinine Ratio 20 (6-20) Glucose Level 142 mg/dL (70-99) Calcium Level 8.3 mg/dL (8.5-10.1) Total Bilirubin 0.2 mg/dL (0.2-1.0) Aspartate Amino Transf (AST/SGOT) 11 U/L (15-37) Alanine Aminotransferase (ALT/SGPT) 24 U/L (14-59) Alkaline Phosphatase 52 U/L (46-116) Total Protein 5.9 g/dL (6.4-8.2) Albumin 3.0 g/dL (3.4-5.0) Albumin/Globulin Ratio 1.0 (1.0-1.7) Test 08/27/18 07:45 08/27/18 11:47 08/27/18 17:49 08/27/18 20:51 Glucose (Fingerstick) 119 mg/dL (70-99) 180 mg/dL (70-99) 221 mg/dL (70-99) 242 mg/dL (70-99) Test 08/28/18 07:34 08/28/18 11:27 Glucose (Fingerstick) 117 mg/dL (70-99) 198 mg/dL (70-99) Laboratory Tests Test 08/27/18 17:49 08/27/18 20:51 08/28/18 07:34 08/28/18 11:27 Glucose (Fingerstick) 221 mg/dL (70-99) 242 mg/dL (70-99) 117 mg/dL (70-99) 198 mg/dL (70-99) Medications Current Medications Albuterol/ Ipratropium (Duoneb) 3 ml 1X ONCE NEB Last administered on at 12:35; Start 08/23/18 at 12:30; Stop 08/23/18 at 12:31; Status DC Methylprednisolone Sodium Succinate (SOLU-Medrol 125MG VIAL) 125 mg 1X ONCE IV Last administered on 08/23/18at 12:38; Start 08/23/18 at 12:30; Stop 08/23/18 at 12:31; Status DC Iohexol (Omnipaque 350 Mg/ml) 90 ml 1X ONCE IV Last administered on 08/23/18at 15:23; Start 08/23/18 at 15:15; Stop 08/23/18 at 15:16; Status DC Info (CONTRAST GIVEN -- Rx MONITORING) 1 each PRN DAILY PRN MC SEE COMMENTS; Start 08/23/18 at 15:15; Stop 08/25/18 at 15:14; Status DC Ondansetron HCl (Zofran) 4 mg PRN Q8HRS PRN IV NAUSEA/VOMITING; Start 08/23/18 at 15:45; Stop 08/24/18 at 15:44; Status DC Fentanyl Citrate (Fentanyl 2ml Vial) 50 mcg PRN Q1HR PRN IV PAIN Last administered on 08/24/18 11:47; Start 08/23/18 at 15:45; Stop 08/24/18 at 15:44 ; Status DC Acetaminophen (Tylenol) 650 mg PRN Q4HRS PRN PO FEVER Last administered on 08/24 01:44; Start 08/23/18 at 15:45; Stop 08/24/18 at 15:44; Status DC Albuterol/ Ipratropium (Duoneb) 3 ml RTQID NEB Last administered on 08/23/18 19:35; Start 08/23/18 at 16:00; Stop 08/23/18 at 21:19; Status DC Methylprednisolone Sodium Succinate (SOLU-Medrol 40MG VIAL) 40 mg Q8HRS IV Last administered on 08/28/18 05:56; Start 08/23/18 at 22:00; Stop 08/28/18 at 09:00; Status DC Aspirin (Ecotrin) 81 mg DAILYWBKFT PO Last administered on 08/28/18 08:30; Start 08/24/18 at 08:00 Clopidogrel Bisulfate (Plavix) 75 mg DAILY PO Last administered on 08/28/18 08 :33; Start 08/24/18 at 09:00 Docusate Sodium (Colace) 100 mg PRN DAILY PRN PO CONSTIPATION Last administered on 08/23/18 21:25; Start 08/23/18 at 21:15 Famotidine (Pepcid) 20 mg BID PO Last administered on 08/24/18 09:13; Start at 21:30; Stop 08/24/18 at 13:29; Status DC Furosemide (Lasix) 20 mg DAILY16 PO Last administered on 08/27/18 16:45; Start 08/24/18 at 16:00 Guaifenesin (Mucinex) 600 mg DAILY PO Last administered on 08/28/18 08:30; Start 08/24/18 at 09:00 Guaifenesin (Robitussin Dm) 10 ml PRN Q6HRS PRN PO COUGH Last administered on 21:16; Start 08/23/18 at 21:15 Albuterol/ Ipratropium (Duoneb) 3 ml RTQID IH Last administered on 08/28/18 11 :12; Start 08/24/18 at 08:00 Lactobacillus Rhamnosus (Culturelle) 1 cap BID PO Last administered on at 08:32; Start 08/24/18 at 09:00 Potassium Chloride (Klor-Con) 10 meq DAILYWBKFT PO Last administered on 08:31; Start 08/24/18 at 08:00 Sertraline HCl (Zoloft) 50 mg HS PO Last administered on 08/27/18 21:02; Start 08/23/18 at 21:30 Sodium Chloride ([place] Saline Nasal) 1 delilah [id number] NS ; Start 08/24/18 at 07:00; Stop 08/25/18 at 19:50; Status DC Non-Formulary Medication (Budesonide/ Formoterol Fumarate (Symbicort 160-4.5 Mcg Inhaler)) 10.2 gm BID IH ; Start 08/24/18 at 09:00; Status UNV Pantoprazole Sodium (Protonix) 40 mg DAILYAC PO Last administered on 08/24/18 06:19; Start 08/24/18 at 07:30; Stop 08/24/18 at 13:28; Status DC Fluticasone Propionate (Flonase) 2 spray BID NS Last administered on 08/28/18 08:31; Start 08/23/18 at 21:30 Montelukast Sodium (Singulair) 10 mg HS PO Last administered on 08/27/18 21:02 ; Start 08/23/18 at 21:30 Roflumilast (Daliresp) 500 mcg DAILY PO Last administered on 08/28/18at 08:30; Start 08/24/18 at 09:00 Doxycycline Hyclate 100 mg/ Dextrose 100 ml @ 50 mls/hr Q12HR IV Last administered on 08/24/18 09:14; Start 08/24/18 at 09:00; Stop 08/24/18 at 10:22 ; Status DC Enoxaparin Sodium (Lovenox 40mg Syringe) 40 mg Q24H SQ Last administered on 21:01; Start 08/23/18 at 21:30 Budesonide (Pulmicort) 0.5 mg RTBID NEB Last administered on 08/28/18at 07:29; Start 08/24/18 at 08:00 Albuterol Sulfate (Ventolin Neb Soln) 2.5 mg RTQID NEB ; Start 08/24/18 at 08:00 ; Status UNV Albuterol Sulfate (Ventolin Neb Soln) 2.5 mg PRN Q2HRS PRN NEB SHORTNESS OF BREATH Last administered on 08/27/18at 04:21; Start 08/24/18 at 02:00 Doxycycline Hyclate (Vibra-Tab) 100 mg BID PO Last administered on 08/28/18 08 :30; Start 08/24/18 at 21:00 Insulin Human Lispro (HumaLOG) 0-7 UNITS TIDWMEALS SQ Last administered on 08/28at 11:54; Start 08/24/18 at 12:00 Dextrose (Dextrose 50%-Water Syringe) 12.5 gm PRN Q15MIN PRN IV SEE COMMENTS; Start 08/24/18 at 10:30 Multi-Ingredient Mouthwash/Gargle (Gi Cocktail) 20 ml PRN QID PRN PO CHEST PAIN ; Start 08/24/18 at 10:45; Stop 08/26/18 at 17:24; Status DC Calcium Carbonate/ Glycine (Tums) 500 mg PRN AFTMEALHC PRN PO INDIGESTION; Start 08/24/18 at 10:45 Pantoprazole Sodium (Protonix) 40 mg BIDAC PO Last administered on 08/28/18 08 :30; Start 08/24/18 at 16:30 Ferrous Sulfate (Iron Oral Solution) 300 mg BIDWMEALS PO Last administered on at 08:30; Start 08/24/18 at 17:00 Polyethylene Glycol (miraLAX PACKET) 17 gm DAILY PO Last administered on 08:30; Start 08/24/18 at 14:00 Fentanyl Citrate (Fentanyl 2ml Vial) 50 mcg PRN Q2HR PRN IV SEVERE PAIN Last administered on 08/25/18at 01:32; Start 08/25/18 at 01:30 Acetaminophen (Tylenol) 650 mg PRN Q6HRS PRN PO MILD PAIN / TEMP; Start at 01:30 Cyclobenzaprine HCl (Flexeril) 5 mg TID PRN PRN PO MUSCLE SPASMS Last administered on 08/27/18at 21:16; Start 08/25/18 at 19:45 Iron Sucrose 500 mg/Sodium Chloride 275 ml @ 78.571 mls/ hr 1X ONCE IV Last administered on 08/26/18at 14:59; Start 08/26/18 at 13:00; Stop 08/26/18 at 16:29 ; Status DC Vitamin B Complex (Folbic Tablet) 1 tab DAILY PO Last administered on at 08:30; Start 08/26/18 at 13:00 Multi-Ingredient Mouthwash/Gargle (Gi Cocktail) 20 ml PRN QID PRN PO upper abd pain/pain under ribs; Start 08/26/18 at 14:30 Diphenhydramine HCl (Benadryl) 25 mg PRN Q6HRS PRN PO ITCHING Last administered on 08/27/18at 02:02; Start 08/26/18 at 19:30 Methylprednisolone Sodium Succinate (SOLU-Medrol 40MG VIAL) 40 mg Q12HR IV ; Start 08/28/18 at 21:00 Active Scripts Active Colace (Docusate Sodium) 100 Mg Capsule 100 Mg PO PRN DAILY PRN 30 Days Azithromycin Tablet (Azithromycin) 250 Mg Tablet 250 Mg PO DAILY 7 Days Famotidine 20 Mg Tablet 20 Mg PO BID 30 Days Culturelle (Lactobacillus Rhamnosus Gg) 1 Each Cap.sprink 1 Cap PO BID 14 Days Prednisone (Prednisone) 10 Mg Tablet 30 Mg PO DAILY 14 Days [place] Saline Nasal Gel (Sodium Chloride/Aloe Vera) 14.1 Gm Gel..gram. 1 Delilah NS [id number] 14 Days Daliresp (Roflumilast) 500 Mcg Tablet 500 Mcg PO DAILY 30 Days Guaifenesin Dm Syrup (Guaifenesin/Dextromethorphan) 5 Ml Syrup 10 Ml PO PRN Q6HRS PRN 30 Days Azithromycin Packet (Azithromycin) 1 Gm Packet 1 Packet PO ONCE Potassium Chloride 10 Meq Capsule.er 1 Cap PO DAILY Reported Flonase Allergy Relief (Fluticasone Propionate) 9.9 Ml [place].susp 2 Sprays NS BID Zoloft (Sertraline Hcl) 50 Mg Tablet 1 Tab PO HS Clopidogrel (Clopidogrel Bisulfate) 75 Mg Tablet 1 Tab PO DAILY Guaifenesin 600 Mg Tablet.er 600 Mg PO DAILY Nexium Capsule (Esomeprazole Magnesium) 40 Mg Capsule.dr 40 Mg PO DAILYAC Singulair Tablet (Montelukast Sodium) 10 Mg Tablet 1 Tab PO HS Lasix (Furosemide) 20 Mg Tablet 1 Tab PO DAILY16 Symbicort 160-4.5 Mcg Inhaler (Budesonide/Formoterol Fumarate) 10.2 Gm Hfa.aer.ad 10.2 Gm IH BID Albuterol Sulfate Hfa Inhaler (Albuterol Sulfate) 8.5 Gm Hfa.aer.ad 8.5 Gm IH PRN Duoneb 0.5 Mg-3 Mg/3 Ml Soln (Ipratropium/Albuterol Sulfate) 3 Ml Ampul.neb 3 Ml IH QID Aspir 81 (Aspirin) 81 Mg Tablet.dr 81 Mg PO DAILY Vitals/I & O Vital Sign - Last 24 Hours 08/27/18 08/27/18 08/27/18 08/27/18 14:55 16:31 19:00 19:15 Temp 99.3 99.2 99.3 99.2 Pulse 90 90 Resp 18 20 B/P (MAP) 133/77 (95) 114/73 (87) Pulse Ox 93 93 95 95 O2 Delivery Nasal Cannula Nasal Cannula Nasal Cannula Nasal Cannula O2 Flow Rate 2.0 2.0 2.0 2.0 08/27/18 08/27/18 08/27/18 08/28/18 19:16 20:01 23:00 03:00 Temp 98.7 99.0 98.7 99.0 Pulse 96 83 Resp 20 18 B/P (MAP) 125/75 (92) 133/88 (103) Pulse Ox 95 96 96 O2 Delivery Nasal Cannula Nasal Cannula Room Air Room Air O2 Flow Rate 2.0 2.0 08/28/18 08/28/18 08/28/18 08/28/18 07:00 07:29 08:00 10:46 Temp 98.2 98.6 98.2 98.6 Pulse 87 87 Resp 18 18 B/P (MAP) 144/79 (100) Pulse Ox 95 96 92 O2 Delivery Nasal Cannula Nasal Cannula Nasal Cannula Nasal Cannula O2 Flow Rate 3.0 2.0 2.0 3.0 08/28/18 11:12 O2 Delivery Nasal Cannula O2 Flow Rate 3.0 Intake and Output 08/27/18 08/27/18 08/28/18 15:00 23:00 07:00 Intake Total 120 ml 150 ml Balance 120 ml 150 ml ROSEMARY VAUGHN MD Aug 28, 2018 13:11
[2018-08-28 16:00] VITALS: BP 113/77
[2018-08-28] MEDS: FUROSEMIDE 20 MG TABLET PO SCH (16:28)
[2018-08-28 19:00] VITALS: BP 124/72
[2018-08-28] MEDS: SERTRALINE 50 MG TABLET. PO SCH (20:25)
[2018-08-28] MEDS: MONTELUKAST SODIUM 10 MG TABLET. PO SCH (20:25)
[2018-08-28] MEDS: ENOXAPARIN 40 MG/0.4 ML SYRINGE. SQ SCH (20:25)
[2018-08-28] MEDS: fentaNYL PF VIAL 100 MCG/2 ML VIAL IV PRN (20:26)
[2018-08-28 23:00] VITALS: BP 137/65
[2018-08-29 03:00] VITALS: BP 127/83
[2018-08-29] MEDS: guaiFENesin DM 200MG/20MG 10 ML SYRUP PO PRN (04:14)
[2018-08-29 04:19] LABS: BASO % 0 % (0-3); EOS % 0 % (0-3); HEMATOCRIT 31.3 % (36.0-47.0); HEMOGLOBIN 9.3 g/dL (12.0-15.5); LYMPH # 0.7 x10^3/uL (1.0-4.8); LYMPH % 7 % (24-48); MEAN CORPUSCULAR HEMOGLOBIN 21 pg (25-35); MEAN CORPUSCULAR HGB CONC 30 g/dL (31-37); MEAN CORPUSCULAR VOLUME 72 fL (79-100); MONO # 0.6 x10^3/uL (0.0-1.1); MONO % 6 % (0-9); NEUT # 9.2 x10^3uL (1.8-7.7); NEUT % 88 % (31-73); PLATELET COUNT 329 x10^3/uL (140-400); RED BLOOD COUNT 4.35 x10^6/uL (3.50-5.40); RED CELL DISTRIBUTION WIDTH 19.4 % (11.5-14.5); WHITE BLOOD COUNT 10.5 x10^3/uL (4.0-11.0)
[2018-08-29 04:37] LABS: ALBUMIN 3.5 g/dL (3.4-5.0); ALBUMIN/GLOBULIN RATIO 1.1 (1.0-1.7); CALCIUM 8.5 mg/dL (8.5-10.1); CREATININE 0.9 mg/dL (0.6-1.0); GFR 77.3; POTASSIUM 3.9 mmol/L (3.5-5.1); TOTAL BILIRUBIN 0.3 mg/dL (0.2-1.0); TOTAL PROTEIN 6.8 g/dL (6.4-8.2)
[2018-08-29] MEDS: IPRATRPIUM/ALBUTEROL 0.5/2.5MG 3 ML NEBU. IH SCH ×2 (06:57→12:33)
[2018-08-29] MEDS: BUDESONIDE 0.5 MG/2 ML NEBU. NEB SCH (06:59)
[2018-08-29 07:00] VITALS: BP 126/78
[2018-08-29] MEDS: ASPIRIN ENTERIC COATED 81 MG TABLET.DR. PO SCH (07:58)
[2018-08-29] MEDS: FERROUS SULFATE ORAL 300 MG/5 ML SOLUTION. PO SCH (07:58)
[2018-08-29] MEDS: ROFLUMILAST 500 MCG TABLET. PO SCH (07:58)
[2018-08-29] MEDS: LACTOBACILLUS RHAMNOSUS GG 1 CAPSULE. PO SCH (07:58)
[2018-08-29] MEDS: DOXYCYCLINE HYCLATE 100 MG TABLET PO SCH (07:58)
[2018-08-29] MEDS: methylPREDNISolone SOD SUCC PF 40 MG/ML VIAL. IV SCH (07:58)
[2018-08-29] MEDS: VITAMIN B12,B9,B6 COMPLEX 1 TABLET. PO SCH (07:59)
[2018-08-29] MEDS: POLYETHYLENE GLYCOL 3350 17 GM PACKET. PO SCH (07:59)
[2018-08-29] MEDS: POTASSIUM CHLORIDE 10 MEQ TABLET.ER. PO SCH (07:59)
[2018-08-29] MEDS: CLOPIDOGREL BISULFATE 75 MG TABLET PO SCH (07:59)
[2018-08-29] MEDS: PANTOPRAZOLE 40 MG TABLET.DR. PO SCH (07:59)
[2018-08-29] MEDS: FLUTICASONE 50MCG/NASAL SPRAY 16GM BOTTLE. NS SCH (08:00)
[2018-08-29] MEDS: INSULIN LISPRO 300 UNITS/3 ML INSULN.PEN. SQ SCH ×2 (08:00→11:02)
--- NOTE | 2018-08-29 08:35 | PDOC ---
PROGRESS NOTES Chief Complaint Chief Complaint dyspnea, ACUTE COPD exacerbation chronic hypoxic and hypercapnic resp failure CAD with 1 stent at RCA accelerated HTN moribid obesity GERD previous smoker normocytic anemia pulmonary HTN wheezing/ bronchospasm anemia of iron deficiency History of Present Illness History of Present Illness iron def. anemia with hypoxia, will give Iron, needs f/u from iron defiency, discussed 02 and tolerance may improve markedly if we can improve her Hgb level cont steroids, abx, nebs, Dr. mock following regular diet, Home today. FMLA and short term disability paperwork filled out, all questions answered. Vitals Vitals Vital Signs Date Time Temp Pulse Resp B/P (MAP) Pulse Ox O2 Delivery O2 Flow Rate FiO2 08/29/18 08:00 Nasal Cannula 3.0 08/29/18 07:00 98.2 85 18 126/78 (94) 91 98.2 Physical Exam General: Alert, Oriented X3, Cooperative, moderate distress Lungs: Wheezing (left base), Other (deminished bs) Abdomen: Soft Extremities: No cyanosis Skin: No breakdown Labs LABS Laboratory Tests Test 08/28/18 11:27 08/28/18 15:56 08/28/18 19:56 08/29/18 03:40 Glucose (Fingerstick) 198 mg/dL (70-99) 120 mg/dL (70-99) 128 mg/dL (70-99) White Blood Count 10.5 x10^3/uL (4.0-11.0) Red Blood Count 4.35 x10^6/uL (3.50-5.40) Hemoglobin 9.3 g/dL (12.0-15.5) Hematocrit 31.3 % (36.0-47.0) Mean Corpuscular Volume 72 fL (79-100) Mean Corpuscular Hemoglobin 21 pg (25-35) Mean Corpuscular Hemoglobin Concent 30 g/dL (31-37) Red Cell Distribution Width 19.4 % (11.5-14.5) Platelet Count 329 x10^3/uL (140-400) Neutrophils (%) (Auto) 88 % (31-73) Lymphocytes (%) (Auto) 7 % (24-48) Monocytes (%) (Auto) 6 % (0-9) Eosinophils (%) (Auto) 0 % (0-3) Basophils (%) (Auto) 0 % (0-3) Neutrophils # (Auto) 9.2 x10^3uL (1.8-7.7) Lymphocytes # (Auto) 0.7 x10^3/uL (1.0-4.8) Monocytes # (Auto) 0.6 x10^3/uL (0.0-1.1) Eosinophils # (Auto) 0.0 x10^3/uL (0.0-0.7) Basophils # (Auto) 0.0 x10^3/uL (0.0-0.2) Sodium Level 141 mmol/L (136-145) Potassium Level 3.9 mmol/L (3.5-5.1) Chloride Level 101 mmol/L (98-107) Carbon Dioxide Level 36 mmol/L (21-32) Anion Gap 4 (6-14) Blood Urea Nitrogen 17 mg/dL (7-20) Creatinine 0.9 mg/dL (0.6-1.0) Estimated GFR (Cockcroft-Gault) 77.3 BUN/Creatinine Ratio 19 (6-20) Glucose Level 275 mg/dL (70-99) Calcium Level 8.5 mg/dL (8.5-10.1) Total Bilirubin 0.3 mg/dL (0.2-1.0) Aspartate Amino Transf (AST/SGOT) 14 U/L (15-37) Alanine Aminotransferase (ALT/SGPT) 30 U/L (14-59) Alkaline Phosphatase 65 U/L (46-116) Total Protein 6.8 g/dL (6.4-8.2) Albumin 3.5 g/dL (3.4-5.0) Albumin/Globulin Ratio 1.1 (1.0-1.7) Test 08/29/18 07:57 Glucose (Fingerstick) 95 mg/dL (70-99) Comment Review of Relevant I have reviewed the following items paulette (where applicable) has been applied. Labs Laboratory Tests Test 08/27/18 11:47 08/27/18 17:49 08/27/18 20:51 08/28/18 07:34 Glucose (Fingerstick) 180 mg/dL (70-99) 221 mg/dL (70-99) 242 mg/dL (70-99) 117 mg/dL (70-99) Test 08/28/18 11:27 08/28/18 15:56 08/28/18 19:56 08/29/18 03:40 Glucose (Fingerstick) 198 mg/dL (70-99) 120 mg/dL (70-99) 128 mg/dL (70-99) White Blood Count 10.5 x10^3/uL (4.0-11.0) Red Blood Count 4.35 x10^6/uL (3.50-5.40) Hemoglobin 9.3 g/dL (12.0-15.5) Hematocrit 31.3 % (36.0-47.0) Mean Corpuscular Volume 72 fL (79-100) Mean Corpuscular Hemoglobin 21 pg (25-35) Mean Corpuscular Hemoglobin Concent 30 g/dL (31-37) Red Cell Distribution Width 19.4 % (11.5-14.5) Platelet Count 329 x10^3/uL (140-400) Neutrophils (%) (Auto) 88 % (31-73) Lymphocytes (%) (Auto) 7 % (24-48) Monocytes (%) (Auto) 6 % (0-9) Eosinophils (%) (Auto) 0 % (0-3) Basophils (%) (Auto) 0 % (0-3) Neutrophils # (Auto) 9.2 x10^3uL (1.8-7.7) Lymphocytes # (Auto) 0.7 x10^3/uL (1.0-4.8) Monocytes # (Auto) 0.6 x10^3/uL (0.0-1.1) Eosinophils # (Auto) 0.0 x10^3/uL (0.0-0.7) Basophils # (Auto) 0.0 x10^3/uL (0.0-0.2) Sodium Level 141 mmol/L (136-145) Potassium Level 3.9 mmol/L (3.5-5.1) Chloride Level 101 mmol/L (98-107) Carbon Dioxide Level 36 mmol/L (21-32) Anion Gap 4 (6-14) Blood Urea Nitrogen 17 mg/dL (7-20) Creatinine 0.9 mg/dL (0.6-1.0) Estimated GFR (Cockcroft-Gault) 77.3 BUN/Creatinine Ratio 19 (6-20) Glucose Level 275 mg/dL (70-99) Calcium Level 8.5 mg/dL (8.5-10.1) Total Bilirubin 0.3 mg/dL (0.2-1.0) Aspartate Amino Transf (AST/SGOT) 14 U/L (15-37) Alanine Aminotransferase (ALT/SGPT) 30 U/L (14-59) Alkaline Phosphatase 65 U/L (46-116) Total Protein 6.8 g/dL (6.4-8.2) Albumin 3.5 g/dL (3.4-5.0) Albumin/Globulin Ratio 1.1 (1.0-1.7) Test 08/29/18 07:57 Glucose (Fingerstick) 95 mg/dL (70-99) Laboratory Tests Test 08/28/18 11:27 08/28/18 15:56 08/28/18 19:56 08/29/18 03:40 Glucose (Fingerstick) 198 mg/dL (70-99) 120 mg/dL (70-99) 128 mg/dL (70-99) White Blood Count 10.5 x10^3/uL (4.0-11.0) Red Blood Count 4.35 x10^6/uL (3.50-5.40) Hemoglobin 9.3 g/dL (12.0-15.5) Hematocrit 31.3 % (36.0-47.0) Mean Corpuscular Volume 72 fL (79-100) Mean Corpuscular Hemoglobin 21 pg (25-35) Mean Corpuscular Hemoglobin Concent 30 g/dL (31-37) Red Cell Distribution Width 19.4 % (11.5-14.5) Platelet Count 329 x10^3/uL (140-400) Neutrophils (%) (Auto) 88 % (31-73) Lymphocytes (%) (Auto) 7 % (24-48) Monocytes (%) (Auto) 6 % (0-9) Eosinophils (%) (Auto) 0 % (0-3) Basophils (%) (Auto) 0 % (0-3) Neutrophils # (Auto) 9.2 x10^3uL (1.8-7.7) Lymphocytes # (Auto) 0.7 x10^3/uL (1.0-4.8) Monocytes # (Auto) 0.6 x10^3/uL (0.0-1.1) Eosinophils # (Auto) 0.0 x10^3/uL (0.0-0.7) Basophils # (Auto) 0.0 x10^3/uL (0.0-0.2) Sodium Level 141 mmol/L (136-145) Potassium Level 3.9 mmol/L (3.5-5.1) Chloride Level 101 mmol/L (98-107) Carbon Dioxide Level 36 mmol/L (21-32) Anion Gap 4 (6-14) Blood Urea Nitrogen 17 mg/dL (7-20) Creatinine 0.9 mg/dL (0.6-1.0) Estimated GFR (Cockcroft-Gault) 77.3 BUN/Creatinine Ratio 19 (6-20) Glucose Level 275 mg/dL (70-99) Calcium Level 8.5 mg/dL (8.5-10.1) Total Bilirubin 0.3 mg/dL (0.2-1.0) Aspartate Amino Transf (AST/SGOT) 14 U/L (15-37) Alanine Aminotransferase (ALT/SGPT) 30 U/L (14-59) Alkaline Phosphatase 65 U/L (46-116) Total Protein 6.8 g/dL (6.4-8.2) Albumin 3.5 g/dL (3.4-5.0) Albumin/Globulin Ratio 1.1 (1.0-1.7) Test 08/29/18 07:57 Glucose (Fingerstick) 95 mg/dL (70-99) Medications Current Medications Albuterol/ Ipratropium (Duoneb) 3 ml 1X ONCE NEB Last administered on at 12:35; Start 08/23/18 at 12:30; Stop 08/23/18 at 12:31; Status DC Methylprednisolone Sodium Succinate (SOLU-Medrol 125MG VIAL) 125 mg 1X ONCE IV Last administered on 08/23/18at 12:38; Start 08/23/18 at 12:30; Stop 08/23/18 at 12:31; Status DC Iohexol (Omnipaque 350 Mg/ml) 90 ml 1X ONCE IV Last administered on 08/23/18at 15:23; Start 08/23/18 at 15:15; Stop 08/23/18 at 15:16; Status DC Info (CONTRAST GIVEN -- Rx MONITORING) 1 each PRN DAILY PRN MC SEE COMMENTS; Start 08/23/18 at 15:15; Stop 08/25/18 at 15:14; Status DC Ondansetron HCl (Zofran) 4 mg PRN Q8HRS PRN IV NAUSEA/VOMITING; Start 08/23/18 at 15:45; Stop 08/24/18 at 15:44; Status DC Fentanyl Citrate (Fentanyl 2ml Vial) 50 mcg PRN Q1HR PRN IV PAIN Last administered on 08/24/18at 11:47; Start 08/23/18 at 15:45; Stop 08/24/18 at 15:44 ; Status DC Acetaminophen (Tylenol) 650 mg PRN Q4HRS PRN PO FEVER Last administered on 08/24at 01:44; Start 08/23/18 at 15:45; Stop 08/24/18 at 15:44; Status DC Albuterol/ Ipratropium (Duoneb) 3 ml RTQID NEB Last administered on 08/23/18at 19:35; Start 08/23/18 at 16:00; Stop 08/23/18 at 21:19; Status DC Methylprednisolone Sodium Succinate (SOLU-Medrol 40MG VIAL) 40 mg Q8HRS IV Last administered on 08/28/18at 05:56; Start 08/23/18 at 22:00; Stop 08/28/18 at 09:00; Status DC Aspirin (Ecotrin) 81 mg DAILYWBKFT PO Last administered on 08/29/18at 07:58; Start 08/24/18 at 08:00 Clopidogrel Bisulfate (Plavix) 75 mg DAILY PO Last administered on 08/29/18at 07 :59; Start 08/24/18 at 09:00 Docusate Sodium (Colace) 100 mg PRN DAILY PRN PO CONSTIPATION Last administered on 08/23/18 21:25; Start 08/23/18 at 21:15 Famotidine (Pepcid) 20 mg BID PO Last administered on 08/24/18 09:13; Start at 21:30; Stop 08/24/18 at 13:29; Status DC Furosemide (Lasix) 20 mg DAILY16 PO Last administered on 08/28/18at 16:28; Start 08/24/18 at 16:00 Guaifenesin (Mucinex) 600 mg DAILY PO Last administered on 08/29/18 07:58; Start 08/24/18 at 09:00 Guaifenesin (Robitussin Dm) 10 ml PRN Q6HRS PRN PO COUGH Last administered on 04:14; Start 08/23/18 at 21:15 Albuterol/ Ipratropium (Duoneb) 3 ml RTQID IH Last administered on 08/29/18 06 :57; Start 08/24/18 at 08:00 Lactobacillus Rhamnosus (Culturelle) 1 cap BID PO Last administered on 07:58; Start 08/24/18 at 09:00 Potassium Chloride (Klor-Con) 10 meq DAILYWBKFT PO Last administered on 07:59; Start 08/24/18 at 08:00 Sertraline HCl (Zoloft) 50 mg HS PO Last administered on 08/28/18 20:25; Start 08/23/18 at 21:30 Sodium Chloride ([place] Saline Nasal) 1 delilah [id number] NS ; Start 08/24/18 at 07:00; Stop 08/25/18 at 19:50; Status DC Non-Formulary Medication (Budesonide/ Formoterol Fumarate (Symbicort 160-4.5 Mcg Inhaler)) 10.2 gm BID IH ; Start 08/24/18 at 09:00; Status UNV Pantoprazole Sodium (Protonix) 40 mg DAILYAC PO Last administered on 08/24/18 06:19; Start 08/24/18 at 07:30; Stop 08/24/18 at 13:28; Status DC Fluticasone Propionate (Flonase) 2 spray BID NS Last administered on 08/29/18 08:00; Start 08/23/18 at 21:30 Montelukast Sodium (Singulair) 10 mg HS PO Last administered on 08/28/18 20:25 ; Start 08/23/18 at 21:30 Roflumilast (Daliresp) 500 mcg DAILY PO Last administered on 08/29/18 07:58; Start 08/24/18 at 09:00 Doxycycline Hyclate 100 mg/ Dextrose 100 ml @ 50 mls/hr Q12HR IV Last administered on 08/24/18at 09:14; Start 08/24/18 at 09:00; Stop 08/24/18 at 10:22 ; Status DC Enoxaparin Sodium (Lovenox 40mg Syringe) 40 mg Q24H SQ Last administered on at 20:25; Start 08/23/18 at 21:30 Budesonide (Pulmicort) 0.5 mg RTBID NEB Last administered on 08/29/18at 06:59; Start 08/24/18 at 08:00 Albuterol Sulfate (Ventolin Neb Soln) 2.5 mg RTQID NEB ; Start 08/24/18 at 08:00 ; Status UNV Albuterol Sulfate (Ventolin Neb Soln) 2.5 mg PRN Q2HRS PRN NEB SHORTNESS OF BREATH Last administered on 08/27/18at 04:21; Start 08/24/18 at 02:00 Doxycycline Hyclate (Vibra-Tab) 100 mg BID PO Last administered on 08/29/18at 07 :58; Start 08/24/18 at 21:00 Insulin Human Lispro (HumaLOG) 0-7 UNITS TIDWMEALS SQ Last administered on 08/28at 11:54; Start 08/24/18 at 12:00 Dextrose (Dextrose 50%-Water Syringe) 12.5 gm PRN Q15MIN PRN IV SEE COMMENTS; Start 08/24/18 at 10:30 Multi-Ingredient Mouthwash/Gargle (Gi Cocktail) 20 ml PRN QID PRN PO CHEST PAIN ; Start 08/24/18 at 10:45; Stop 08/26/18 at 17:24; Status DC Calcium Carbonate/ Glycine (Tums) 500 mg PRN AFTMEALHC PRN PO INDIGESTION; Start 08/24/18 at 10:45 Pantoprazole Sodium (Protonix) 40 mg BIDAC PO Last administered on 08/29/18 07 :59; Start 08/24/18 at 16:30 Ferrous Sulfate (Iron Oral Solution) 300 mg BIDWMEALS PO Last administered on at 07:58; Start 08/24/18 at 17:00 Polyethylene Glycol (miraLAX PACKET) 17 gm DAILY PO Last administered on 07:59; Start 08/24/18 at 14:00 Fentanyl Citrate (Fentanyl 2ml Vial) 50 mcg PRN Q2HR PRN IV SEVERE PAIN Last administered on 08/28/18at 20:26; Start 08/25/18 at 01:30 Acetaminophen (Tylenol) 650 mg PRN Q6HRS PRN PO MILD PAIN / TEMP; Start at 01:30 Cyclobenzaprine HCl (Flexeril) 5 mg TID PRN PRN PO MUSCLE SPASMS Last administered on 08/27/18 21:16; Start 08/25/18 at 19:45 Iron Sucrose 500 mg/Sodium Chloride 275 ml @ 78.571 mls/ hr 1X ONCE IV Last administered on 08/26/18at 14:59; Start 08/26/18 at 13:00; Stop 08/26/18 at 16:29 ; Status DC Vitamin B Complex (Folbic Tablet) 1 tab DAILY PO Last administered on 07:59; Start 08/26/18 at 13:00 Multi-Ingredient Mouthwash/Gargle (Gi Cocktail) 20 ml PRN QID PRN PO upper abd pain/pain under ribs; Start 08/26/18 at 14:30 Diphenhydramine HCl (Benadryl) 25 mg PRN Q6HRS PRN PO ITCHING Last administered on 08/27/18at 02:02; Start 08/26/18 at 19:30 Methylprednisolone Sodium Succinate (SOLU-Medrol 40MG VIAL) 40 mg Q12HR IV Last administered on 08/29/18at 07:58; Start 08/28/18 at 21:00 Active Scripts Active Colace (Docusate Sodium) 100 Mg Capsule 100 Mg PO PRN DAILY PRN 30 Days Azithromycin Tablet (Azithromycin) 250 Mg Tablet 250 Mg PO DAILY 7 Days Famotidine 20 Mg Tablet 20 Mg PO BID 30 Days Culturelle (Lactobacillus Rhamnosus Gg) 1 Each Cap.sprink 1 Cap PO BID 14 Days Prednisone (Prednisone) 10 Mg Tablet 30 Mg PO DAILY 14 Days [place] Saline Nasal Gel (Sodium Chloride/Aloe Vera) 14.1 Gm Gel..gram. 1 Delilah NS [id number] 14 Days Daliresp (Roflumilast) 500 Mcg Tablet 500 Mcg PO DAILY 30 Days Guaifenesin Dm Syrup (Guaifenesin/Dextromethorphan) 5 Ml Syrup 10 Ml PO PRN Q6HRS PRN 30 Days Azithromycin Packet (Azithromycin) 1 Gm Packet 1 Packet PO ONCE Potassium Chloride 10 Meq Capsule.er 1 Cap PO DAILY Reported Flonase Allergy Relief (Fluticasone Propionate) 9.9 Ml [place].susp 2 Sprays NS BID Zoloft (Sertraline Hcl) 50 Mg Tablet 1 Tab PO HS Clopidogrel (Clopidogrel Bisulfate) 75 Mg Tablet 1 Tab PO DAILY Guaifenesin 600 Mg Tablet.er 600 Mg PO DAILY Nexium Capsule (Esomeprazole Magnesium) 40 Mg Capsule.dr 40 Mg PO DAILYAC Singulair Tablet (Montelukast Sodium) 10 Mg Tablet 1 Tab PO HS Lasix (Furosemide) 20 Mg Tablet 1 Tab PO DAILY16 Symbicort 160-4.5 Mcg Inhaler (Budesonide/Formoterol Fumarate) 10.2 Gm Hfa.aer.ad 10.2 Gm IH BID Albuterol Sulfate Hfa Inhaler (Albuterol Sulfate) 8.5 Gm Hfa.aer.ad 8.5 Gm IH PRN Duoneb 0.5 Mg-3 Mg/3 Ml Soln (Ipratropium/Albuterol Sulfate) 3 Ml Ampul.neb 3 Ml IH QID Aspir 81 (Aspirin) 81 Mg Tablet. 81 Mg PO DAILY Vitals/I & O Vital Sign - Last 24 Hours 08/28/18 08/28/18 08/28/18 08/28/18 10:46 11:12 16:00 16:33 Temp 98.6 98.2 98.6 98.2 Pulse 87 90 Resp 18 18 B/P (MAP) 144/79 (100) 113/77 (89) Pulse Ox 92 95 O2 Delivery Nasal Cannula Nasal Cannula Nasal Cannula Nasal Cannula O2 Flow Rate 3.0 3.0 3.0 3.0 08/28/18 08/28/18 08/28/18 08/28/18 19:00 19:48 20:00 20:26 Temp 97.2 97.2 Pulse 89 Resp 16 B/P (MAP) 124/72 (89) Pulse Ox 99 96 O2 Delivery Nasal Cannula Nasal Cannula Nasal Cannula Nasal Cannula O2 Flow Rate 3.0 3.0 3.0 3.0 3/17/19 08/28/18 08/29/18 08/29/18 20:56 23:00 03:00 07:00 Temp 98.9 98.8 98.9 98.8 Pulse 86 82 Resp 20 16 B/P (MAP) 137/65 (89) 127/83 (98) Pulse Ox 96 95 98 O2 Delivery Nasal Cannula Nasal Cannula Nasal Cannula Nasal Cannula O2 Flow Rate 3.0 3.0 3.0 3.0 08/29/18 08/29/18 07:00 08:00 Temp 98.2 98.2 Pulse 85 Resp 18 B/P (MAP) 126/78 (94) Pulse Ox 91 O2 Delivery Nasal Cannula Nasal Cannula O2 Flow Rate 2.0 3.0 Intake and Output 08/28/18 08/28/18 08/29/18 15:00 23:00 07:00 Intake Total 900 ml 300 ml Balance 900 ml 300 ml ZEB ASHLEY MD Aug 29, 2018 08:35
[2018-08-29] MEDS ORDERED: FERR300L PO (10:33)
[2018-08-29] MEDS ORDERED: NEBU-132 MC (10:33)
[2018-08-29] MEDS ORDERED: PRED-220 PO (10:33)
[2018-08-29] MEDS ORDERED: DOXY100T PO (10:33)
[2018-08-29 11:02] VITALS: BP 129/78
--- NOTE | 2018-08-29 11:19 | PDOC ---
PULMONARY PROGRESS NOTES Subjective sob slightly better, has cough, nasal congestion, on home 02. Vitals Vital Signs Date Time Temp Pulse Resp B/P (MAP) Pulse Ox O2 Delivery O2 Flow Rate FiO2 08/29/18 11:02 98.8 87 20 129/78 (95) 95 Nasal Cannula 2.0 98.8 ROS: No Nausea General: Alert, No acute distress HEENT: Other (nc at perrl) Lungs: Other (deminished bs) Cardiovascular: S1, S2 Abdomen: Soft, Non-tender, Other Neuro Exam: Alert Extremities: No Edema Skin: Warm Labs Laboratory Tests Test 08/27/18 11:47 08/27/18 17:49 08/27/18 20:51 08/28/18 07:34 Glucose (Fingerstick) 180 mg/dL (70-99) 221 mg/dL (70-99) 242 mg/dL (70-99) 117 mg/dL (70-99) Test 08/28/18 11:27 08/28/18 15:56 08/28/18 19:56 08/29/18 03:40 Glucose (Fingerstick) 198 mg/dL (70-99) 120 mg/dL (70-99) 128 mg/dL (70-99) White Blood Count 10.5 x10^3/uL (4.0-11.0) Red Blood Count 4.35 x10^6/uL (3.50-5.40) Hemoglobin 9.3 g/dL (12.0-15.5) Hematocrit 31.3 % (36.0-47.0) Mean Corpuscular Volume 72 fL (79-100) Mean Corpuscular Hemoglobin 21 pg (25-35) Mean Corpuscular Hemoglobin Concent 30 g/dL (31-37) Red Cell Distribution Width 19.4 % (11.5-14.5) Platelet Count 329 x10^3/uL (140-400) Neutrophils (%) (Auto) 88 % (31-73) Lymphocytes (%) (Auto) 7 % (24-48) Monocytes (%) (Auto) 6 % (0-9) Eosinophils (%) (Auto) 0 % (0-3) Basophils (%) (Auto) 0 % (0-3) Neutrophils # (Auto) 9.2 x10^3uL (1.8-7.7) Lymphocytes # (Auto) 0.7 x10^3/uL (1.0-4.8) Monocytes # (Auto) 0.6 x10^3/uL (0.0-1.1) Eosinophils # (Auto) 0.0 x10^3/uL (0.0-0.7) Basophils # (Auto) 0.0 x10^3/uL (0.0-0.2) Sodium Level 141 mmol/L (136-145) Potassium Level 3.9 mmol/L (3.5-5.1) Chloride Level 101 mmol/L (98-107) Carbon Dioxide Level 36 mmol/L (21-32) Anion Gap 4 (6-14) Blood Urea Nitrogen 17 mg/dL (7-20) Creatinine 0.9 mg/dL (0.6-1.0) Estimated GFR (Cockcroft-Gault) 77.3 BUN/Creatinine Ratio 19 (6-20) Glucose Level 275 mg/dL (70-99) Calcium Level 8.5 mg/dL (8.5-10.1) Total Bilirubin 0.3 mg/dL (0.2-1.0) Aspartate Amino Transf (AST/SGOT) 14 U/L (15-37) Alanine Aminotransferase (ALT/SGPT) 30 U/L (14-59) Alkaline Phosphatase 65 U/L (46-116) Total Protein 6.8 g/dL (6.4-8.2) Albumin 3.5 g/dL (3.4-5.0) Albumin/Globulin Ratio 1.1 (1.0-1.7) Test 08/29/18 07:57 08/29/18 11:00 Glucose (Fingerstick) 95 mg/dL (70-99) 121 mg/dL (70-99) Laboratory Tests Test 08/28/18 11:27 08/28/18 15:56 08/28/18 19:56 08/29/18 03:40 Glucose (Fingerstick) 198 mg/dL (70-99) 120 mg/dL (70-99) 128 mg/dL (70-99) White Blood Count 10.5 x10^3/uL (4.0-11.0) Red Blood Count 4.35 x10^6/uL (3.50-5.40) Hemoglobin 9.3 g/dL (12.0-15.5) Hematocrit 31.3 % (36.0-47.0) Mean Corpuscular Volume 72 fL (79-100) Mean Corpuscular Hemoglobin 21 pg (25-35) Mean Corpuscular Hemoglobin Concent 30 g/dL (31-37) Red Cell Distribution Width 19.4 % (11.5-14.5) Platelet Count 329 x10^3/uL (140-400) Neutrophils (%) (Auto) 88 % (31-73) Lymphocytes (%) (Auto) 7 % (24-48) Monocytes (%) (Auto) 6 % (0-9) Eosinophils (%) (Auto) 0 % (0-3) Basophils (%) (Auto) 0 % (0-3) Neutrophils # (Auto) 9.2 x10^3uL (1.8-7.7) Lymphocytes # (Auto) 0.7 x10^3/uL (1.0-4.8) Monocytes # (Auto) 0.6 x10^3/uL (0.0-1.1) Eosinophils # (Auto) 0.0 x10^3/uL (0.0-0.7) Basophils # (Auto) 0.0 x10^3/uL (0.0-0.2) Sodium Level 141 mmol/L (136-145) Potassium Level 3.9 mmol/L (3.5-5.1) Chloride Level 101 mmol/L (98-107) Carbon Dioxide Level 36 mmol/L (21-32) Anion Gap 4 (6-14) Blood Urea Nitrogen 17 mg/dL (7-20) Creatinine 0.9 mg/dL (0.6-1.0) Estimated GFR (Cockcroft-Gault) 77.3 BUN/Creatinine Ratio 19 (6-20) Glucose Level 275 mg/dL (70-99) Calcium Level 8.5 mg/dL (8.5-10.1) Total Bilirubin 0.3 mg/dL (0.2-1.0) Aspartate Amino Transf (AST/SGOT) 14 U/L (15-37) Alanine Aminotransferase (ALT/SGPT) 30 U/L (14-59) Alkaline Phosphatase 65 U/L (46-116) Total Protein 6.8 g/dL (6.4-8.2) Albumin 3.5 g/dL (3.4-5.0) Albumin/Globulin Ratio 1.1 (1.0-1.7) Test 08/29/18 07:57 08/29/18 11:00 Glucose (Fingerstick) 95 mg/dL (70-99) 121 mg/dL (70-99) Medications Active Scripts Medications Dose Route/Sig Max Daily Dose Days Date Category Colace (Docusate Sodium) 100 Mg Capsule 100 Mg PO PRN DAILY PRN 30 05/14/18 Rx Azithromycin Tablet (Azithromycin) 250 Mg Tablet 250 Mg PO DAILY 7 05/14/18 Rx Famotidine 20 Mg Tablet 20 Mg PO BID 30 05/14/18 Rx Culturelle (Lactobacillus Rhamnosus Gg) 1 Each Cap.sprink 1 Cap PO BID 14 05/14/18 Rx Prednisone (Prednisone) 10 Mg Tablet 30 Mg PO DAILY 14 05/14/18 Rx [place] Saline Nasal Gel (Sodium Chloride/Aloe Vera) 14.1 Gm Gel..gram. 1 Delilah NS [id number] 14 05/14/18 Rx Daliresp (Roflumilast) 500 Mcg Tablet 500 Mcg PO DAILY 30 05/14/18 Rx Guaifenesin Dm Syrup (Guaifenesin/Dextromethorphan) 5 Ml Syrup 10 Ml PO PRN Q6HRS PRN 30 05/14/18 Rx Flonase Allergy Relief (Fluticasone Propionate) 9.9 Ml [place].susp 2 Sprays NS BID 05/10/18 Reported Zoloft (Sertraline Hcl) 50 Mg Tablet 1 Tab PO HS 05/10/18 Reported Clopidogrel (Clopidogrel Bisulfate) 75 Mg Tablet 1 Tab PO DAILY 02/25/18 Reported Guaifenesin 600 Mg Tablet.er 600 Mg PO DAILY 02/25/18 Reported Azithromycin Packet (Azithromycin) 1 Gm Packet 1 Packet PO ONCE 04/01/17 Rx Potassium Chloride 10 Meq Capsule.er 1 Cap PO DAILY 04/26/15 Rx Nexium Capsule (Esomeprazole Magnesium) 40 Mg Capsule.dr 40 Mg PO DAILYAC 04/18/15 Reported Singulair Tablet (Montelukast Sodium) 10 Mg Tablet 1 Tab PO HS 04/27/14 Reported Lasix (Furosemide) 20 Mg Tablet 1 Tab PO DAILY16 04/27/14 Reported Symbicort 160-4.5 Mcg Inhaler (Budesonide/Formoterol Fumarate) 10.2 Gm Hfa.aer.ad 10.2 Gm IH BID 07/28/13 Reported Albuterol Sulfate Hfa Inhaler (Albuterol Sulfate) 8.5 Gm Hfa.aer.ad 8.5 Gm IH PRN 07/28/13 Reported Duoneb 0.5 Mg-3 Mg/3 Ml Soln (Ipratropium/Albuterol Sulfate) 3 Ml Ampul.neb 3 Ml IH QID 07/28/13 Reported Aspir 81 (Aspirin) 81 Mg Tablet.dr 81 Mg PO DAILY 07/28/13 Reported Impression . 1. Dyspnea secondary to acute exacerbation of chronic obstructive pulmonary disease. 2. Acute bronchitis. 3. No evidence of any pulmonary embolism or pneumonia based on the CT chest. 4. Postnasal drainage. 5. Chronic hypoxic respiratory failure. Plan . 1. Continue with present antibiotics. 2. Continue with DuoNebs and Pulmicort. 3. will change solumedrol to oral steroids/ taper 4. Continue with Daliresp. 5. Flonase for postnasal drainage. add ns prn, cont singulair 6. discussed options with her including evaluation for lung transplant. 7. increase activity ok with dc home discussed w pt TRACEE PIZARRO MD Aug 29, 2018 11:19
--- NOTE | 2018-08-29 11:43 | NUR ---
Discharge Note: INDY QUEZADA [facility] Discharge instructions and discharge home medications reviewed with Patient and a copy given. All questions have been answered and understanding verbalized. The following instructions and handouts were given: d/c instructions, fmla papers, f/u instructions Discontinued lines and drains: Peripheral IV intact. Patient discharged to Home or Self Care with Family Member via Wheelchair
--- NOTE | 2018-08-29 12:08 | PDOC ---
Subjective: Subjective: Going home. Objective: Vital Signs: Vital Signs Date Time Temp Pulse Resp B/P (MAP) Pulse Ox O2 Delivery O2 Flow Rate FiO2 08/29/18 11:02 98.8 87 20 129/78 (95) 95 Nasal Cannula 2.0 98.8 Labs: Laboratory Tests Test 08/28/18 15:56 08/28/18 19:56 08/29/18 07:57 08/29/18 11:00 Glucose (Fingerstick) 120 mg/dL (70-99) 128 mg/dL (70-99) 95 mg/dL (70-99) 121 mg/dL (70-99) PE: GEN: NAD, going over discharge instructions w/ RN NEURO/PSYCH: A & O 3 A/P: COPD exacerbation JESSICA, epigastric discomfort -- DC per primary. Follow-up w/ pulm, consider EGD and colonoscopy as outpt when breathing improves. 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 DENY MONTESINOS Aug 29, 2018 12:08
--- NOTE | 2018-08-29 22:07 | PDOC3 ---
Discharge Summary Visit Information Date of Admission: Aug 23, 2018 Date of Discharge: Aug 29, 2018 Admitting Diagnosis: Acute COPD Exacerbation Final Diagnosis COPD exacerbation, Iron deficiency anemia Brief Hospital Course Allergies Allergies Coded Allergies Type Severity Reaction Last Updated Verified iron Allergy Severe 08/26/18 Yes Penicillins Allergy Intermediate rash 03/03/16 Yes morphine Allergy Intermediate Rash-PERCOCET OK 03/03/16 Yes benzonatate Adverse Reaction Intermediate Itching 05/14/18 Yes Vital Signs Vital Signs Date Time Temp Pulse Resp B/P (MAP) Pulse Ox O2 Delivery O2 Flow Rate FiO2 08/29/18 12:33 98 Nasal Cannula 2.0 08/29/18 11:02 98.8 87 20 129/78 (95) 98.8 Lab Results Laboratory Tests Test 08/28/18 07:34 08/28/18 11:27 08/28/18 15:56 08/28/18 19:56 Glucose (Fingerstick) 117 mg/dL (70-99) 198 mg/dL (70-99) 120 mg/dL (70-99) 128 mg/dL (70-99) Test 08/29/18 03:40 08/29/18 07:57 08/29/18 11:00 White Blood Count 10.5 x10^3/uL (4.0-11.0) Red Blood Count 4.35 x10^6/uL (3.50-5.40) Hemoglobin 9.3 g/dL (12.0-15.5) Hematocrit 31.3 % (36.0-47.0) Mean Corpuscular Volume 72 fL (79-100) Mean Corpuscular Hemoglobin 21 pg (25-35) Mean Corpuscular Hemoglobin Concent 30 g/dL (31-37) Red Cell Distribution Width 19.4 % (11.5-14.5) Platelet Count 329 x10^3/uL (140-400) Neutrophils (%) (Auto) 88 % (31-73) Lymphocytes (%) (Auto) 7 % (24-48) Monocytes (%) (Auto) 6 % (0-9) Eosinophils (%) (Auto) 0 % (0-3) Basophils (%) (Auto) 0 % (0-3) Neutrophils # (Auto) 9.2 x10^3uL (1.8-7.7) Lymphocytes # (Auto) 0.7 x10^3/uL (1.0-4.8) Monocytes # (Auto) 0.6 x10^3/uL (0.0-1.1) Eosinophils # (Auto) 0.0 x10^3/uL (0.0-0.7) Basophils # (Auto) 0.0 x10^3/uL (0.0-0.2) Sodium Level 141 mmol/L (136-145) Potassium Level 3.9 mmol/L (3.5-5.1) Chloride Level 101 mmol/L (98-107) Carbon Dioxide Level 36 mmol/L (21-32) Anion Gap 4 (6-14) Blood Urea Nitrogen 17 mg/dL (7-20) Creatinine 0.9 mg/dL (0.6-1.0) Estimated GFR (Cockcroft-Gault) 77.3 BUN/Creatinine Ratio 19 (6-20) Glucose Level 275 mg/dL (70-99) Calcium Level 8.5 mg/dL (8.5-10.1) Total Bilirubin 0.3 mg/dL (0.2-1.0) Aspartate Amino Transf (AST/SGOT) 14 U/L (15-37) Alanine Aminotransferase (ALT/SGPT) 30 U/L (14-59) Alkaline Phosphatase 65 U/L (46-116) Total Protein 6.8 g/dL (6.4-8.2) Albumin 3.5 g/dL (3.4-5.0) Albumin/Globulin Ratio 1.1 (1.0-1.7) Glucose (Fingerstick) 95 mg/dL (70-99) 121 mg/dL (70-99) Laboratory Tests Test 08/29/18 03:40 08/29/18 07:57 08/29/18 11:00 White Blood Count 10.5 x10^3/uL (4.0-11.0) Red Blood Count 4.35 x10^6/uL (3.50-5.40) Hemoglobin 9.3 g/dL (12.0-15.5) Hematocrit 31.3 % (36.0-47.0) Mean Corpuscular Volume 72 fL (79-100) Mean Corpuscular Hemoglobin 21 pg (25-35) Mean Corpuscular Hemoglobin Concent 30 g/dL (31-37) Red Cell Distribution Width 19.4 % (11.5-14.5) Platelet Count 329 x10^3/uL (140-400) Neutrophils (%) (Auto) 88 % (31-73) Lymphocytes (%) (Auto) 7 % (24-48) Monocytes (%) (Auto) 6 % (0-9) Eosinophils (%) (Auto) 0 % (0-3) Basophils (%) (Auto) 0 % (0-3) Neutrophils # (Auto) 9.2 x10^3uL (1.8-7.7) Lymphocytes # (Auto) 0.7 x10^3/uL (1.0-4.8) Monocytes # (Auto) 0.6 x10^3/uL (0.0-1.1) Eosinophils # (Auto) 0.0 x10^3/uL (0.0-0.7) Basophils # (Auto) 0.0 x10^3/uL (0.0-0.2) Sodium Level 141 mmol/L (136-145) Potassium Level 3.9 mmol/L (3.5-5.1) Chloride Level 101 mmol/L (98-107) Carbon Dioxide Level 36 mmol/L (21-32) Anion Gap 4 (6-14) Blood Urea Nitrogen 17 mg/dL (7-20) Creatinine 0.9 mg/dL (0.6-1.0) Estimated GFR (Cockcroft-Gault) 77.3 BUN/Creatinine Ratio 19 (6-20) Glucose Level 275 mg/dL (70-99) Calcium Level 8.5 mg/dL (8.5-10.1) Total Bilirubin 0.3 mg/dL (0.2-1.0) Aspartate Amino Transf (AST/SGOT) 14 U/L (15-37) Alanine Aminotransferase (ALT/SGPT) 30 U/L (14-59) Alkaline Phosphatase 65 U/L (46-116) Total Protein 6.8 g/dL (6.4-8.2) Albumin 3.5 g/dL (3.4-5.0) Albumin/Globulin Ratio 1.1 (1.0-1.7) Glucose (Fingerstick) 95 mg/dL (70-99) 121 mg/dL (70-99) Brief Hospital Course Ms. Stevens is a 58 year old female who has severe COPD, which is oxygen dependent. She came into the hospital with increased shortness of breath. She has a cough, postnasal drainage. She had diffuse myalgias. No fever, no chills. No headaches, no nausea or vomiting, no diarrhea, no dysuria. No focal weakness. No lower extremity edema. The patient underwent CTA chest. There was no evidence of any pulmonary emboli. She has prominent right pulmonary artery consistent with pulmonary hypertension. Negative for influenza. She improved with treatment under guidance of pulmonology. She was seen by GI for h/o iron def anemia, will have repeat EGD outpatient when her respiratory status has improved. She had a venofer infusion while inpatient which caused severe swelling of bilateral hands, notes she will be compliant with oral iron therapy. Due to the frequency of her hospitalizations I have filled out FMLA and short term disability paperwork. She will have f/u with Pulmonology and Gastroenterology in the near future. dyspnea, ACUTE COPD exacerbation chronic hypoxic and hypercapnic resp failure CAD with 1 stent at RCA accelerated HTN moribid obesity GERD previous smoker normocytic anemia pulmonary HTN wheezing/ bronchospasm anemia of iron deficiency Greater than 30 minutes spent on discharge including counseling and completion of her FMLA and disability paperwork. Discharge Information Condition at Discharge: Improved Follow Up: Weeks (2) Disposition/Orders: D/C to Home Scheduled Aspirin (Aspir 81) 81 Mg Tablet.dr, 81 MG PO DAILY, (Reported) Entered as Reported by: CIERRA DAI on 07/28/13 1118 Last Action: Continued on 08/23/182113 by CORWIN FLOREZ MD Budesonide/Formoterol Fumarate (Symbicort 160-4.5 Mcg Inhaler) 10.2 Gm Hfa.aer.ad, 10.2 GM IH BID, (Reported) Entered as Reported by: CIERRA DAI on 07/28/13 1131 Last Action: Converted on 08/23/182113 by CORWIN FLOREZ MD Clopidogrel Bisulfate (Clopidogrel) 75 Mg Tablet, 1 TAB PO DAILY, #90 Ref 1 ( Reported) Entered as Reported by: BLESSING LEON on 02/25/18 1401 Last Action: Continued on 08/23/182113 by CORWIN FLOREZ MD Doxycycline Hyclate (Doxycycline Hyclate) 100 Mg Tablet, 100 MG PO BID for COPD for 5 Days, #10 Can sub with doxy monohydrate 100mg BID for cost Prescribed by: ZEB ASHLEY MD on 08/29/18 1033 Esomeprazole Magnesium (Nexium Capsule) 40 Mg Capsule.dr, 40 MG PO DAILYAC, #30 Ref 0 (Reported) Entered as Reported by: JANET GODL [facility] on 04/18/15 0849 Last Action: Converted on 08/23/182113 by CORWIN FLOREZ MD Famotidine (Famotidine) 20 Mg Tablet, 20 MG PO BID for ACID for 30 Days, #60 Prescribed by: CORWIN FLOREZ MD on 05/14/18 1454 Last Action: Continued on 08/23/182113 by CORWIN FLOREZ MD Ferrous Sulfate (Ferrous Sulfate) 300 Mg/5 Ml Liquid, 300 MG PO BIDWMEALS for iron deficiency for 30 Days, #60 Prescribed by: ZEB ASHLEY MD on 08/29/18 1033 Fluticasone Propionate (Flonase Allergy Relief) 9.9 Ml [place].susp, 2 SPRAYS NS BID for congestion, (Reported) Entered as Reported by: RAIMUNDO WOODS on 05/10/18 1811 Last Action: Converted on 08/23/182113 by CORWIN FLOREZ MD Furosemide (Lasix) 20 Mg Tablet, 1 TAB PO DAILY16 for fluid retention, #90 Ref 1 (Reported) Entered as Reported by: SHARON HOFFMAN on 04/27/14 1333 Last Action: Continued on 08/23/182113 by CORWIN FLOREZ MD Guaifenesin (Guaifenesin) 600 Mg Tablet.er, 600 MG PO DAILY for mucus/congestion , (Reported) Entered as Reported by: BLESSING LEON on 02/25/18 1400 Last Action: Continued on 08/23/182113 by CORWIN FLOREZ MD Ipratropium/Albuterol Sulfate (Duoneb 0.5 Mg-3 Mg/3 Ml Soln) 3 Ml Ampul.neb, 3 ML IH QID, (Reported) Entered as Reported by: CIERRA DAI on 07/28/13 1128 Last Action: Continued on 08/23/182113 by CORWIN FLOREZ MD Lactobacillus Rhamnosus Gg (Culturelle) 1 Each Cap.sprink, 1 CAP PO BID for SUPPLEMENT for 14 Days, #28 Prescribed by: CORWIN FLOREZ MD on 05/14/181453 Last Action: Continued on 08/23/182113 by CORWIN FLOREZ MD Montelukast Sodium (Singulair Tablet) 10 Mg Tablet, 1 TAB PO HS for COPD, #90 Ref 1 (Reported) Entered as Reported by: SHARON HOFFMAN on 04/27/14 1333 Last Action: Converted on 08/23/182113 by CORWIN FLOREZ MD Potassium Chloride (Potassium Chloride) 10 Meq Capsule.er, 1 CAP PO DAILY, #30 Ref 5 Prescribed by: CIERRA ORTEGA on 04/26/15 0751 Last Action: Continued on 08/23/182113 by CORWIN FLOREZ MD Prednisone (Prednisone ) 10 Mg Tablet, 40 MG PO DAILY for COPD for 10 Days, # 30 40mg 5 days 20mg 5 days Prescribed by: ZEB ASHLEY MD on 08/29/18 1033 Roflumilast (Daliresp) 500 Mcg Tablet, 500 MCG PO DAILY for LUNG HEALTH for 30 Days, #30 Prescribed by: CORWIN FLOREZ MD on 05/14/184 Last Action: Converted on 08/23/182113 by CORWIN FLOREZ MD Sertraline Hcl (Zoloft) 50 Mg Tablet, 1 TAB PO HS for anxiety, #30 Ref 2 ( Reported) Entered as Reported by: RAIMUNDO WOODS on 05/10/18 1811 Last Action: Continued on 08/23/182113 by CORWIN FLOREZ MD Sodium Chloride/Aloe Vera (Prospect Saline Nasal Gel) 14.1 Gm Gel..gram., 1 ITA NS [id number] for NASAL CONGESTION for 14 Days, #56 Prescribed by: CORWIN FLOREZ MD on 05/14/181453 Last Action: Continued on 08/23/182113 by CORWIN FLOREZ MD Scheduled PRN Albuterol Sulfate (Albuterol Sulfate Hfa Inhaler) 8.5 Gm Hfa.aer.ad, 8.5 GM IH, (Reported) Entered as Reported by: CIERRA DAI on 07/28/13 1130 Docusate Sodium (Colace) 100 Mg Capsule, 100 MG PO PRN DAILY PRN for CONSTIPATION for 30 Days, #30 Prescribed by: CORWIN FLOREZ MD on 05/14/181453 Last Action: Continued on 08/23/182113 by CORWIN FLOREZ MD Guaifenesin/Dextromethorphan (Guaifenesin Dm Syrup) 5 Ml Syrup, 10 ML PO PRN Q6HRS PRN for COUGH for 30 Days, #30 Prescribed by: CORWIN FLOREZ MD on 05/14/181453 Last Action: Continued on 08/23/182113 by CORWIN FLOREZ MD Discontinued Medications Azithromycin (Azithromycin Packet) 1 Gm Packet, 1 PACKET PO ONCE, #1 Prescribed by: KIKA HOLCOMB MD on 04/01/17 162 Last Action: HELD on 08/23/182113 by CORWIN FLOREZ MD Azithromycin (Azithromycin Tablet) 250 Mg Tablet, 250 MG PO DAILY for BRONCHITIS for 7 Days, #7 Prescribed by: CORWIN FLOREZ MD on 05/14/181453 Last Action: HELD on 08/23/182113 by CORWIN FLOREZ MD Durable Medical Equipment Nebulizer and Compressor (Easy Neb Compressor Nebulizer) 1 Each Each, EACH QID for COPD, [place]1, [place] [place] Nebulizer QID for COPD Prescribed by: ZEB ASHLEY MD on 08/29/18 1033 ZEB ASHLEY MD Aug 29, 2018 22:07
--- NOTE | 2018-08-31 13:14 | RESP ---
DATE OF SERVICE: 08/26/2018 PULMONARY FUNCTION TEST The patient's FVC is 0.95, which is 43% predicted, FEV1 is 0.41, which is only 24% predicted. FEV1/FVC ratio is severely reduced. No response to bronchodilators is seen. IMPRESSION: 1. End-stage chronic obstructive pulmonary disease with an FEV1 of only 0.41, which is 24% predicted. 2. No response to bronchodilators. TRACEE PIZARRO MD DR: MAURO/franklin JOB#: [id number] / [id number]
== END 2018-08-29 12:58 | disposition home or self-care (01) | DRG 191 ==
LOC: ER 11:34 → 5 SOUTH 14:17
PROVIDERS: ADMIT Family Medicine; ATTEND Family Medicine
DX: J44.1 Chronic obstructive pulmonary disease with (acute) exacerbation (principal); J96.11 Chronic respiratory failure with hypoxia; J96.12 Chronic respiratory failure with hypercapnia; J44.0 Chronic obstructive pulmonary disease with (acute) lower respiratory infection; J20.9 Acute bronchitis, unspecified; E66.01 Morbid (severe) obesity due to excess calories; I10 Essential (primary) hypertension; D50.9 Iron deficiency anemia, unspecified; G47.33 Obstructive sleep apnea (adult) (pediatric); I25.10 Atherosclerotic heart disease of native coronary artery without angina pectoris; I27.20 Pulmonary hypertension, unspecified; K57.90 Diverticulosis of intestine, part unspecified, without perforation or abscess without bleeding; Z95.5 Presence of coronary angioplasty implant and graft; K21.9 Gastro-esophageal reflux disease without esophagitis; K63.5 Polyp of colon; Z79.02 Long term (current) use of antithrombotics/antiplatelets; Z82.49 Family history of ischemic heart disease and other diseases of the circulatory system; Z87.891 Personal history of nicotine dependence; Z82.5 Family history of asthma and other chronic lower respiratory diseases; Z90.710 Acquired absence of both cervix and uterus; Z99.81 Dependence on supplemental oxygen; F32.9 Major depressive disorder, single episode, unspecified; Z68.30 Body mass index [BMI] 30.0-30.9, adult; Z88.0 Allergy status to penicillin; Z88.8 Allergy status to other drugs, medicaments and biological substances
CPT/HCPCS: 36415; 71045; 71275; 74022; 80053; 82553; 82962; 83540; 83550; 83690; 83735; 83880; 84443; 84484; 85007; 85025; 85045; 85610; 87804; 93005; 94060; 94640; 94760; 96374; J1650; J1756; J1815; J2920; J2930; J3010; J3490; J7050; J7613; J7620; J7626; Q0163; Q9967; 99285-25; J7030

== ENCOUNTER → 2018-10-12 | Outpatient (CLI) | payer OTHER ==
[~2018-10-12] MED LIST changes: +DOXY100T PO; +FERR300L PO; +NEBU-132 MC
[2018-10-12 10:34] LABS: HEMATOCRIT 35.3 % (36.0-47.0); HEMOGLOBIN 10.9 g/dL (12.0-15.5); RED BLOOD COUNT 4.22 x10^6/uL (3.50-5.40); RED CELL DISTRIBUTION WIDTH 27.6 % (11.5-14.5); WHITE BLOOD COUNT 5.7 x10^3/uL (4.0-11.0)
[2018-10-12 10:58] LABS: ALBUMIN 3.8 g/dL (3.4-5.0); ALBUMIN/GLOBULIN RATIO 1.1 (1.0-1.7); CALCIUM 9.2 mg/dL (8.5-10.1); CHOLESTEROL/HDL RATIO 2.3; CREATININE 0.9 mg/dL (0.6-1.0); GFR 77.3; POTASSIUM 3.9 mmol/L (3.5-5.1); TOTAL BILIRUBIN 0.3 mg/dL (0.2-1.0); TOTAL PROTEIN 7.2 g/dL (6.4-8.2)
[2018-10-13 00:08] LABS: HEMOGLOBIN A1C 5.5 % (4.8-5.6)
== END | disposition home or self-care (01) ==
LOC: LAB 09:12
PROVIDERS: ATTEND Family Medicine
DX: D50.9 Iron deficiency anemia, unspecified (principal); E55.9 Vitamin D deficiency, unspecified; E78.5 Hyperlipidemia, unspecified; R73.09 Other abnormal glucose
CPT/HCPCS: 36415; 80053; 80061; 82306; 82728; 83036; 85027

== ENCOUNTER → 2018-11-21 | Outpatient (CLI) | payer OTHER ==
--- NOTE | 2018-11-21 08:57 | CARD ---
MR#: [id number] Date of Study: 11/21/2018 Ordering Physician: TERA CORONEL, Referring Physician: TERA CORONEL, Tech: Leslie Nichols [facility] APPROVED REPORT EXAM: Two-dimensional and M-mode echocardiogram with Doppler and color Doppler. Other Information Quality : GoodHR: 75bpm Rhythm : NSR INDICATION Dyspnea 2D DIMENSIONS RVDd3.4 (2.9-3.5cm)Left Atrium(2D)2.9 (1.6-4.0cm) IVSd1.1 (0.7-1.1cm)Aortic Root(2D)3.0 (2.0-3.7cm) LVDd4.7 (3.9-5.9cm)LVOT Diameter2.0 (1.8-2.4cm) PWd0.8 (0.7-1.1cm)LVDs3.3 (2.5-4.0cm) FS (%) 28.5 %SV55.4 ml LVEF(%)54.9 (>50%) M-Mode DIMENSIONS IVSd1.16 (0.7-1.1cm)LVDd3.71 (4.0-5.6cm) PWd1.01 (0.7-1.1cm)FS (%) 26 % LVDs2.73 (2.0-3.8cm)ESV(Teich)27.8 ml LVEF(%)53 (>50%) Aortic Valve AoV Peak Isaiah.138.8cm/sAoV VTI25.2cm AO Peak GR.7.7mmHgLVOT Peak Isiaah.91.0cm/s AO Mean GR.5mmHgAVA (VMAX)2.03cm2 Mitral Valve MV E Gmqvheay49.1cm/sMV DECEL GIOT775fd MV A Ngxazfld74.5cm/sE/A Ratio0.7 MV A Pcalnhjd59gj Pulmonary Valve PV Peak Dmsxjrgl157.5cm/s Tricuspid Valve TR P. Qdniudgn910fb/sRAP CBKNIXMI6ufRo TR Peak Gr.05sdSxFUAR06rsNv LEFT VENTRICLE The left ventricle is normal size. There is mild concentric left ventricular hypertrophy. The systoli c function is mildly impaired. EF 45% There is global hypokinesis and septal motion suggestive of con duction defect. Transmitral Doppler flow pattern is Grade I-abnormal relaxation pattern. RIGHT VENTRICLE The right ventricle is normal size. There is normal right ventricular wall thickness. The right ventr icular systolic function is normal. ATRIA The left atrium is mildly dilated. The right atrium is mildly dilated. The interatrial septum is inta ct with no evidence for an atrial septal defect or patent foramen ovale as noted on 2-D or Doppler im aging. AORTIC VALVE The aortic valve is normal in structure and function. The aortic valve is trileaflet. Doppler and Col or Flow revealed no significant aortic regurgitation. There is no significant aortic valvular stenosi s. There is no aortic valvular vegetation. MITRAL VALVE The mitral valve is normal in structure and function. There is no evidence of mitral valve prolapse. There is no mitral valve stenosis. Doppler and Color-flow revealed trace mitral regurgitation. TRICUSPID VALVE The tricuspid valve is normal in structure and function. Doppler and Color Flow revealed trace to mil d tricuspid regurgitation. The PA pressure was estimated at 26 mmHg. There is no tricuspid valve prol apse or vegetation. There is no tricuspid valve stenosis. PULMONIC VALVE Doppler and Color Flow revealed no pulmonic valvular regurgitation. There is no pulmonic valvular abdirizak nosis. GREAT VESSELS The aortic root is normal in size. The ascending aorta is normal in size. The IVC is normal in size a nd collapses >50% with inspiration. PERICARDIAL EFFUSION There is no evidence of significant pericardial effusion. Critical Notification Critical Value: No <Conclusion> The systolic function is mildly impaired. EF 45% There is global hypokinesis and septal motion suggestive of conduction defect. Signed by : Tera Coronel, Electronically Approved : 11/21/2018 08:57:02
== END | disposition home or self-care (01) ==
LOC: ECHO 07:28
PROVIDERS: ATTEND Internal Medicine Cardiovascular Disease
DX: I07.1 Rheumatic tricuspid insufficiency (principal)
CPT/HCPCS: 93306

== ENCOUNTER → 2018-12-05 | Outpatient (CLI) | payer OTHER ==
[~2018-12-05] MED LIST changes: +MONT10TA49 PO; -MONT10TA6 PO
--- NOTE | 2018-12-05 11:09 | RAD ---
AP and Lateral Views of the Chest 12/05/2018 12:00 AM Indication: Shortness of breath Comparison: Chest radiograph August 23, 2018 Findings: There is no focal consolidation or infiltrate identified. Heart size is within normal limits. Mild prominence of the pulmonary artery is similar. There is no evidence of pneumothorax or pleural effusion. No acute osseous abnormalities are identified. Impression: No evidence of acute cardiopulmonary process or acute change from prior study. Electronically signed by: Barney Sinclair MD (12/05/2018 11:06 AM) [id number]
== END | disposition home or self-care (01) ==
LOC: RAD 09:45
PROVIDERS: ATTEND Internal Medicine Pulmonary Disease
DX: R06.02 Shortness of breath (principal)
CPT/HCPCS: 71046

== ENCOUNTER → 2019-01-13 | Day surgery (SDC) | payer OTHER ==
[~2019-01-13] MED LIST changes: +IV RINGERS,LACTATED 1000ML 1,000 ML IV SCH; +LIDOCAINE 2% PF 5 ML VIAL. ONE; +ONDANSETRON PF 4 MG/2 ML VIAL. IV PRN; +PROCHLORPERAZINE 10 MG/2 ML VIAL. IV PRN; +PROPOFOL 60 ML IV ONE; +fentaNYL PF VIAL 100 MCG/2 ML VIAL IV PRN
[2019-01-13 09:49] VITALS: BP 132/87
== END ==
LOC: SURG 08:03
PROVIDERS: ATTEND Internal Medicine Gastroenterology
DX: Z12.11 Encounter for screening for malignant neoplasm of colon (principal); K57.30 Diverticulosis of large intestine without perforation or abscess without bleeding; K22.2 Esophageal obstruction; K64.0 First degree hemorrhoids; K21.9 Gastro-esophageal reflux disease without esophagitis; E78.00 Pure hypercholesterolemia, unspecified; F41.9 Anxiety disorder, unspecified; F32.9 Major depressive disorder, single episode, unspecified; J43.9 Emphysema, unspecified; I10 Essential (primary) hypertension; F15.90 Other stimulant use, unspecified, uncomplicated; Z88.0 Allergy status to penicillin; Z88.8 Allergy status to other drugs, medicaments and biological substances; Z88.6 Allergy status to analgesic agent; Z91.040 Latex allergy status; Z87.01 Personal history of pneumonia (recurrent); Z72.89 Other problems related to lifestyle; Z79.82 Long term (current) use of aspirin; Z90.710 Acquired absence of both cervix and uterus; Z98.890 Other specified postprocedural states; Z86.010 Personal history of colon polyps
CPT/HCPCS: 43235; 43450; 45378; J2001; J2704

== ENCOUNTER → 2019-01-23 | Outpatient (CLI) | payer OTHER ==
[2019-01-13 09:49] VITALS: BP 132/87
[~2019-01-23] MED LIST changes: -IV RINGERS,LACTATED 1000ML 1,000 ML IV SCH; -LIDOCAINE 2% PF 5 ML VIAL. ONE; -ONDANSETRON PF 4 MG/2 ML VIAL. IV PRN; -PROCHLORPERAZINE 10 MG/2 ML VIAL. IV PRN; -PROPOFOL 60 ML IV ONE; -fentaNYL PF VIAL 100 MCG/2 ML VIAL IV PRN
--- NOTE | 2019-01-23 16:10 | RAD ---
EXAM: AP, lateral and lumbosacral spot views of the lumbar spine DATE: 01/23/2019 12:00 AM INDICATION: Low back pain COMPARISON: No Prior FINDINGS: There are 5 nonrib-bearing lumbar-type vertebral bodies. Vertebral body heights are preserved. Intervertebral disc heights are preserved. Moderate facet degenerative changes are seen at L3-4 and below. Mild straightening of the normal lumbar lordosis. No significant spondylolisthesis. IMPRESSION: 1. No evidence for acute fracture or subluxation. 2. Facet degenerative changes L3-4 and below. 3. Disc heights are grossly preserved Electronically signed by: Carrillo Bruno MD (01/23/2019 4:06 PM) [facility]
== END | disposition home or self-care (01) ==
LOC: RAD 09:20
PROVIDERS: ATTEND Family Medicine
DX: M47.816 Spondylosis without myelopathy or radiculopathy, lumbar region (principal); M40.46 Postural lordosis, lumbar region
CPT/HCPCS: 72100

== ENCOUNTER → 2019-02-21 | Outpatient (CLI) | payer OTHER ==
[2019-01-13 09:49] VITALS: BP 132/87
--- NOTE | 2019-02-21 15:20 | RAD ---
Examination: CT ABDOMEN PELVIS WO CONTRAST History: Generalized abdominal pain Comparison/Correlation: 05/02/2014 CT abdomen and pelvis with contrast, 04/19/2015 CT abdomen and pelvis with oral and IV contrast Findings: Axial images of the abdomen and pelvis were obtained without contrast. Sagittal and coronal reformatted images were provided. Linear scarring or atelectasis at the lung bases is minimal. Unenhanced liver, spleen, pancreas, and adrenal glands are unremarkable. Gallbladder fossa is unremarkable. There are no radiopaque collecting system calculi or evidence of collecting system obstruction. Urinary bladder is unremarkable. Moderate quantity of stool is present within the colon. Diverticulosis is present. Appendix is normal. No extraluminal gas. No obstruction. No inflammatory changes involving bowel. No ascites or pelvic free fluid. Urinary bladder is unremarkable. Degenerative narrowing of the left hip joint space with remodeling is evident. Narrowing of the right hip joint space also is present with spurring. Mild L3-4 disc space narrowing is present. Impression: Diverticulosis. No acute process. PQRS Compliance Statement: One or more of the following individualized dose reduction techniques were utilized for this examination: 1. Automated exposure control 2. Adjustment of the mA and/or kV according to patient size 3. Use of iterative reconstruction technique Electronically signed by: Franco Orourke MD (02/21/2019 3:18 PM) [facility]
== END | disposition home or self-care (01) ==
LOC: CT 10:53
PROVIDERS: ATTEND Nurse Practitioner Gerontology
DX: K57.90 Diverticulosis of intestine, part unspecified, without perforation or abscess without bleeding (principal); M48.061 Spinal stenosis, lumbar region without neurogenic claudication
CPT/HCPCS: 74176

== ENCOUNTER 2019-03-24 09:22 | Inpatient (IN) | payer OTHER ==
[~2019-03-24] VITALS: Ht 162.6 cm; Wt 80.9 kg
--- NOTE | 2019-03-24 09:43 | PHYS DOC ---
Past Medical History Past Medical History: CAD, COPD, Other Additional Past Medical Histor: CHRONIC BRONCHITIS (SILVIO PEREZ APRN) Past Surgical History: Angioplasty, Hysterectomy, Tonsillectomy, Other Additional Past Surgical Histo: HEART CATH,EXP SURG X4, laproscopy (SILVIO PEREZ APRN) Alcohol Use: None Drug Use: None (SILVIO PEREZ APRN) Attending Signature I have participated in the care of this patient and I have reviewed and agree with all pertinent clinical information above including history, exam, and recommendations. (BECKY FLAHERTY MD) Adult General Chief Complaint Chief Complaint: SHORTNESS OF BREATH HPI HPI Patient is a 58 year old female that presents with shortness of breath since yesterday, and states that she's been feeling congested and having a cough for 6 weeks. She states that her primary care provider put her on Flagyl for the cough but she does not know why. She also states that usually she is on 2 L of oxygen however today she's been having up her cell phone 3-4 L of oxygen. She states yesterday she had a test done to see how much oxygen she needed and was having to do exercise and she says that since then she's been feeling short of breath. Denies any pain. States that she has been having a little bit of nausea, and headache. Also states that she's had a subjective fever. (SILVIO PEREZ APRN) Review of Systems Review of Systems Constitutional: Reports fever or chills [] Eyes: Denies change in visual acuity, redness, or eye pain [] HENT: Reports nasal congestion Respiratory: Reports cough and shortness of breath [] Cardiovascular: No additional information not addressed in HPI [] GI: Reports nausea. Denies abdominal pain, vomiting, bloody stools or diarrhea [] : Denies dysuria or hematuria [] Musculoskeletal: Denies back pain or joint pain [] Integument: Denies rash or skin lesions [] Neurologic: Reports headache Denies focal weakness or sensory changes [] Endocrine: Denies polyuria or polydipsia [] Complete systems were reviewed and found to be within normal limits, except as documented in this note. (SILVIO PEREZ APRN) Current Medications Current Medications Current Medications Medications (Trade) Dose Ordered Sig/Umang Start Time Stop Time Status Last Admin Dose Admin Albuterol Sulfate (Ventolin Neb Soln) 10 mg 1X ONCE 03/24/19 10:15 03/24/19 10:16 DC 03/24/19 10:32 10 MG Albuterol/ Ipratropium (Duoneb) 3 ml 1X ONCE 03/24/19 09:45 03/24/19 09:46 DC 03/24/19 09:47 3 ML Azithromycin 250 ml @ 250 mls/hr 1X ONCE 03/24/19 10:45 03/24/19 11:44 DC 03/24/19 11:19 250 MLS/HR Ceftriaxone Sodium (Rocephin) 1 gm 1X STAT 03/24/19 10:34 03/24/19 10:53 DC 03/24/19 11:19 1 GM Methylprednisolone Sodium Succinate (SOLU-Medrol 125MG VIAL) 125 mg 1X ONCE 03/24/19 09:45 03/24/19 09:46 DC 03/24/19 10:31 125 MG (BECKY FLAHERTY MD) Allergies Allergies Allergies Coded Allergies Type Severity Reaction Last Updated Verified iron Allergy Severe 08/26/18 Yes Penicillins Allergy Intermediate rash 03/03/16 Yes morphine Allergy Intermediate Rash-PERCOCET OK 03/03/16 Yes benzonatate Adverse Reaction Intermediate Itching 05/14/18 Yes (BECKY FLAHERTY MD) Physical Exam Physical Exam Constitutional: Well developed, well nourished, no acute distress, non-toxic appearance. [] HENT: Normocephalic, atraumatic, bilateral external ears normal, oropharynx [address], no oral exudates, nose normal. [] Eyes: PERRLA, EOMI, conjunctiva normal, no discharge. [] Neck: Normal range of motion, no tenderness, supple, no stridor. [] Cardiovascular:Heart rate regular rhythm, no murmur [] Lungs & Thorax: Bilateral breath sounds have wheezing diffusely. Abdomen: Bowel sounds normal, soft, no tenderness, no masses, no pulsatile masses. [] Skin: Warm, dry, no erythema, no rash. [] Back: No tenderness, no CVA tenderness. [] Extremities: No tenderness, no cyanosis, no clubbing, ROM intact, no edema. [] Neurologic: Alert and oriented X 3, normal motor function, normal sensory function, no focal deficits noted. [] Psychologic: Affect normal, judgement normal, mood normal. [] (SILVIO PEREZ APRN) Current Patient Data Vital Signs Vital Signs Date Time Temp Pulse Resp B/P (MAP) Pulse Ox O2 Delivery O2 Flow Rate FiO2 03/24/19 11:00 76 28 134/78 (96) 100 03/24/19 10:32 Nasal Cannula 2.0 03/24/19 09:35 98.8 98.8 (BECKY FLAHERTY MD) Lab Values Laboratory Tests Test 03/24/19 10:03 White Blood Count 4.7 x10^3/uL (4.0-11.0) Red Blood Count 4.18 x10^6/uL (3.50-5.40) Hemoglobin 12.9 g/dL (12.0-15.5) Hematocrit 38.8 % (36.0-47.0) Mean Corpuscular Volume 93 fL (79-100) Mean Corpuscular Hemoglobin 31 pg (25-35) Mean Corpuscular Hemoglobin Concent 33 g/dL (31-37) Red Cell Distribution Width 14.5 % (11.5-14.5) Platelet Count 205 x10^3/uL (140-400) Neutrophils (%) (Auto) 41 % (31-73) Lymphocytes (%) (Auto) 31 % (24-48) Monocytes (%) (Auto) 17 % (0-9) H Eosinophils (%) (Auto) 10 % (0-3) H Basophils (%) (Auto) 1 % (0-3) Neutrophils # (Auto) 1.9 x10^3/uL (1.8-7.7) Lymphocytes # (Auto) 1.5 x10^3/uL (1.0-4.8) Monocytes # (Auto) 0.8 x10^3/uL (0.0-1.1) Eosinophils # (Auto) 0.5 x10^3/uL (0.0-0.7) Basophils # (Auto) 0.0 x10^3/uL (0.0-0.2) Sodium Level 148 mmol/L (136-145) H Potassium Level 4.2 mmol/L (3.5-5.1) Chloride Level 107 mmol/L (98-107) Carbon Dioxide Level 39 mmol/L (21-32) H Anion Gap 2 (6-14) L Blood Urea Nitrogen 13 mg/dL (7-20) Creatinine 0.8 mg/dL (0.6-1.0) Estimated GFR (Cockcroft-Gault) 88.5 BUN/Creatinine Ratio 16 (6-20) Glucose Level 88 mg/dL (70-99) Calcium Level 9.0 mg/dL (8.5-10.1) Magnesium Level 1.9 mg/dL (1.8-2.4) Total Bilirubin 0.4 mg/dL (0.2-1.0) Aspartate Amino Transferase (AST) 25 U/L (15-37) Alanine Aminotransferase (ALT) 22 U/L (14-59) Alkaline Phosphatase 58 U/L (46-116) Creatine Kinase 492 U/L (26-192) H Creatine Kinase MB (Mass) 4.6 ng/mL (0.0-3.6) H Creatine Kinase MB Relative Index 0.9 % (0-4) Troponin I Quantitative < 0.017 ng/mL (0.000-0.055) Total Protein 6.8 g/dL (6.4-8.2) Albumin 3.6 g/dL (3.4-5.0) Albumin/Globulin Ratio 1.1 (1.0-1.7) Procalcitonin < 0.10 ng/mL (0.00-0.10) Laboratory Tests 03/24/19 10:03 Laboratory Tests 03/24/19 10:03 (BECKY FLAHERTY MD) Lab Values Laboratory Tests Test 03/24/19 10:03 White Blood Count 4.7 x10^3/uL (4.0-11.0) Red Blood Count 4.18 x10^6/uL (3.50-5.40) Hemoglobin 12.9 g/dL (12.0-15.5) Hematocrit 38.8 % (36.0-47.0) Mean Corpuscular Volume 93 fL (79-100) Mean Corpuscular Hemoglobin 31 pg (25-35) Mean Corpuscular Hemoglobin Concent 33 g/dL (31-37) Red Cell Distribution Width 14.5 % (11.5-14.5) Platelet Count 205 x10^3/uL (140-400) Neutrophils (%) (Auto) 41 % (31-73) Lymphocytes (%) (Auto) 31 % (24-48) Monocytes (%) (Auto) 17 % (0-9) H Eosinophils (%) (Auto) 10 % (0-3) H Basophils (%) (Auto) 1 % (0-3) Neutrophils # (Auto) 1.9 x10^3/uL (1.8-7.7) Lymphocytes # (Auto) 1.5 x10^3/uL (1.0-4.8) Monocytes # (Auto) 0.8 x10^3/uL (0.0-1.1) Eosinophils # (Auto) 0.5 x10^3/uL (0.0-0.7) Basophils # (Auto) 0.0 x10^3/uL (0.0-0.2) Sodium Level 148 mmol/L (136-145) H Potassium Level 4.2 mmol/L (3.5-5.1) Chloride Level 107 mmol/L (98-107) Carbon Dioxide Level 39 mmol/L (21-32) H Anion Gap 2 (6-14) L Blood Urea Nitrogen 13 mg/dL (7-20) Creatinine 0.8 mg/dL (0.6-1.0) Estimated GFR (Cockcroft-Gault) 88.5 BUN/Creatinine Ratio 16 (6-20) Glucose Level 88 mg/dL (70-99) Calcium Level 9.0 mg/dL (8.5-10.1) Magnesium Level 1.9 mg/dL (1.8-2.4) Total Bilirubin 0.4 mg/dL (0.2-1.0) Aspartate Amino Transferase (AST) 25 U/L (15-37) Alanine Aminotransferase (ALT) 22 U/L (14-59) Alkaline Phosphatase 58 U/L (46-116) Creatine Kinase 492 U/L (26-192) H Creatine Kinase MB (Mass) 4.6 ng/mL (0.0-3.6) H Creatine Kinase MB Relative Index 0.9 % (0-4) Troponin I Quantitative < 0.017 ng/mL (0.000-0.055) Total Protein 6.8 g/dL (6.4-8.2) Albumin 3.6 g/dL (3.4-5.0) Albumin/Globulin Ratio 1.1 (1.0-1.7) Procalcitonin < 0.10 ng/mL (0.00-0.10) Laboratory Tests 03/24/19 10:03 Laboratory Tests 03/24/19 10:03 (SILVIO PEREZ APRN) EKG EKG EKG interpreted by Dr. Flaherty Sinus with rate of 77, No STEMI[] (SILVIO PEREZ APRN) Radiology/Procedures Radiology/Procedures [][facility] [address] [place] [address] IMAGING REPORT Signed PATIENT: EDDI QUEZADA HACCOUNT: [id number] : 1960 LOCATION: ER AGE: 58 SEX: F EXAM STATUS: REG ER ORD. PHYSICIAN: SILVIO PEREZ APRN REASON: sob, non productive cough. hx of COPD PROCEDURE: CHEST PA & LATERAL CHEST PA LATERAL Clinical indications: Shortness of breath. Nonproductive cough. History of COPD. COMPARISON: None available. Findings: Hyperinflation is seen consistent with COPD. There is a small lung infiltrate within the lateral aspect of the right upper lobe. No pleural effusion or pneumothorax is seen. Heart size is mildly enlarged. Prominent central pulmonary arteries are seen which may be secondary to pulmonary arterial hypertension. This is unchanged. The mediastinum is stable. The osseous structures appear intact. Impression: COPD. Small acute lung infiltrate within the right upper lobe. Mild cardiomegaly. Pulmonary arterial hypertension. Electronically signed by: Linda Gregg MD (03/24/2019 10:25 AM) [id number] DICTATED and SIGNED BY: LINDA GREGG MD DATE: 03/24/19 1025 (SILVIO PEREZ APRN) Course & Med Decision Making Course & Med Decision Making Pertinent Labs and Imaging studies reviewed. (See chart for details) Will get Chest x-ray, labs, EKG, and will breathing treatment/steroids. Patient appears to have RUL Pneumonia and COPD exacerbation. Patient has improved after duoneb and hour long treatment. Will call Dr. Cruz for admission. Dr. Agarwal is covering for Dr. Cruz and discussed with Dr. Agarwal. He agrees to admission. I will consult Pulmonary. (SILVIO PEREZ APRN) Dragon Disclaimer Dragon Disclaimer This electronic medical record was generated, in whole or in part, using a voice recognition dictation system. (SILVIO PEREZ APRN) Departure Departure Impression: Primary Impression: COPD exacerbation Additional Impression: Pneumonia Disposition: 09 ADMITTED INPATIENT Admitting Physician: Silvio Agarwal (SILVIO PEREZ APRN) Condition: STABLE Referrals: GUZMAN CRUZ MD (PCP) Problem Qualifiers Additional Impression: Pneumonia Pneumonia type: due to unspecified organism Laterality: right Lung location: upper lobe of lung Qualified Codes: J18.1 - Lobar pneumonia, unspecified organism SILVIO PEREZ APRN Mar 24, 2019 09:43 BECKY FLAHERTY MD Mar 25, 2019 09:29
[2019-03-24] MEDS ORDERED: methylPREDNISolone SOD SUCC PF 125 MG/2 ML VIAL. IV ONE (09:45)
[2019-03-24] MEDS ORDERED: IPRATRPIUM/ALBUTEROL 0.5/2.5MG 3 ML NEBU. NEB ONE (09:45)
[2019-03-24] MEDS ORDERED: ALBUTEROL SULFATE 2.5 MG/3 ML NEBU. CONT NEB ONE (10:15)
[2019-03-24 10:26] LABS: BASO % 1 % (0-3); EOS # 0.5 x10^3/uL (0.0-0.7); EOS % 10 % (0-3); HEMATOCRIT 38.8 % (36.0-47.0); HEMOGLOBIN 12.9 g/dL (12.0-15.5); LYMPH # 1.5 x10^3/uL (1.0-4.8); LYMPH % 31 % (24-48); MEAN CORPUSCULAR HEMOGLOBIN 31 pg (25-35); MEAN CORPUSCULAR HGB CONC 33 g/dL (31-37); MEAN CORPUSCULAR VOLUME 93 fL (79-100); MONO # 0.8 x10^3/uL (0.0-1.1); MONO % 17 % (0-9); NEUT # 1.9 x10^3/uL (1.8-7.7); NEUT % 41 % (31-73); PLATELET COUNT 205 x10^3/uL (140-400); RED BLOOD COUNT 4.18 x10^6/uL (3.50-5.40); RED CELL DISTRIBUTION WIDTH 14.5 % (11.5-14.5); WHITE BLOOD COUNT 4.7 x10^3/uL (4.0-11.0)
--- NOTE | 2019-03-24 10:28 | RAD ---
CHEST PA LATERAL Clinical indications: Shortness of breath. Nonproductive cough. History of COPD. COMPARISON: None available. Findings: Hyperinflation is seen consistent with COPD. There is a small lung infiltrate within the lateral aspect of the right upper lobe. No pleural effusion or pneumothorax is seen. Heart size is mildly enlarged. Prominent central pulmonary arteries are seen which may be secondary to pulmonary arterial hypertension. This is unchanged. The mediastinum is stable. The osseous structures appear intact. Impression: COPD. Small acute lung infiltrate within the right upper lobe. Mild cardiomegaly. Pulmonary arterial hypertension. Electronically signed by: Harmeet Gregg MD (03/24/2019 10:25 AM) [id number]
[2019-03-24] MEDS ORDERED: cefTRIAXone IV Push 1 GM VIAL. IVP STA (10:34)
[2019-03-24 10:45] LABS: CREATININE 0.8 mg/dL (0.6-1.0); GFR 88.5; POTASSIUM 4.2 mmol/L (3.5-5.1)
[2019-03-24] MEDS ORDERED: AZITHRMYCN 500MG IVPB FOR OMNI 250 ML IV ONE (10:45)
[2019-03-24 10:51] LABS: ALBUMIN 3.6 g/dL (3.4-5.0); ALBUMIN/GLOBULIN RATIO 1.1 (1.0-1.7); MAGNESIUM 1.9 mg/dL (1.8-2.4); TOTAL BILIRUBIN 0.4 mg/dL (0.2-1.0); TOTAL PROTEIN 6.8 g/dL (6.4-8.2)
[2019-03-24] MEDS ORDERED: IV NORMAL SALINE 1000ML BAG 1,000 ML IV ONE (11:30)
[2019-03-24] MEDS ORDERED: ONDANSETRON PF 4 MG/2 ML VIAL. IV PRN (12:15)
--- NOTE | 2019-03-24 13:21 | EKG ---
[facility] [address] [place] [address] Test Date: 2019-03-24 Test Time: 09:38:24 Pat Name: EDDI QUEZADA Department: Room: 8 1 Gender: F Cytotechnologist/Histotechnologist: : 1960 Requested By: BAY PEREZ Order Number: [id number] Reading MD: Judd Castillo MD Measurements Intervals Ramer Rate: 104 P: 145 MN: 136 QRS: -38 QRSD: 76 T: 52 QT: 314 QTc: 413 Interpretive Statements SINUS TACHYCARDIA ABNORMAL LEFT AXIS DEVIATION BASELINE ARTIFACT Electronically Signed On 04-02-2019 12:04:55 CDT by Judd Castillo MD
[2019-03-24 13:30] VITALS: BP 163/83
[2019-03-24] MEDS: IPRATRPIUM/ALBUTEROL 0.5/2.5MG 3 ML NEBU. IH SCH ×3 (14:00→20:31)
--- NOTE | 2019-03-24 15:13 | PDOC ---
PULMONARY PROGRESS NOTES Vitals Vital Signs Date Time Temp Pulse Resp B/P (MAP) Pulse Ox O2 Delivery O2 Flow Rate FiO2 03/24/19 13:30 98.6 102 20 163/83 (109) 90 Nasal Cannula 3.0 98.6 HEENT: Other Labs Laboratory Tests Test 03/24/19 10:03 03/24/19 11:45 White Blood Count 4.7 x10^3/uL (4.0-11.0) Red Blood Count 4.18 x10^6/uL (3.50-5.40) Hemoglobin 12.9 g/dL (12.0-15.5) Hematocrit 38.8 % (36.0-47.0) Mean Corpuscular Volume 93 fL (79-100) Mean Corpuscular Hemoglobin 31 pg (25-35) Mean Corpuscular Hemoglobin Concent 33 g/dL (31-37) Red Cell Distribution Width 14.5 % (11.5-14.5) Platelet Count 205 x10^3/uL (140-400) Neutrophils (%) (Auto) 41 % (31-73) Lymphocytes (%) (Auto) 31 % (24-48) Monocytes (%) (Auto) 17 % (0-9) Eosinophils (%) (Auto) 10 % (0-3) Basophils (%) (Auto) 1 % (0-3) Neutrophils # (Auto) 1.9 x10^3/uL (1.8-7.7) Lymphocytes # (Auto) 1.5 x10^3/uL (1.0-4.8) Monocytes # (Auto) 0.8 x10^3/uL (0.0-1.1) Eosinophils # (Auto) 0.5 x10^3/uL (0.0-0.7) Basophils # (Auto) 0.0 x10^3/uL (0.0-0.2) Sodium Level 148 mmol/L (136-145) Potassium Level 4.2 mmol/L (3.5-5.1) Chloride Level 107 mmol/L (98-107) Carbon Dioxide Level 39 mmol/L (21-32) Anion Gap 2 (6-14) Blood Urea Nitrogen 13 mg/dL (7-20) Creatinine 0.8 mg/dL (0.6-1.0) Estimated GFR (Cockcroft-Gault) 88.5 BUN/Creatinine Ratio 16 (6-20) Glucose Level 88 mg/dL (70-99) Calcium Level 9.0 mg/dL (8.5-10.1) Magnesium Level 1.9 mg/dL (1.8-2.4) Total Bilirubin 0.4 mg/dL (0.2-1.0) Aspartate Amino Transf (AST/SGOT) 25 U/L (15-37) Alanine Aminotransferase (ALT/SGPT) 22 U/L (14-59) Alkaline Phosphatase 58 U/L (46-116) Creatine Kinase 492 U/L (26-192) Creatine Kinase MB (Mass) 4.6 ng/mL (0.0-3.6) Creatine Kinase MB Relative Index 0.9 % (0-4) Troponin I Quantitative < 0.017 ng/mL (0.000-0.055) Total Protein 6.8 g/dL (6.4-8.2) Albumin 3.6 g/dL (3.4-5.0) Albumin/Globulin Ratio 1.1 (1.0-1.7) Procalcitonin < 0.10 ng/mL (0.00-0.10) Lactic Acid Level 1.1 mmol/L (0.4-2.0) Laboratory Tests Test 03/24/19 10:03 03/24/19 11:45 White Blood Count 4.7 x10^3/uL (4.0-11.0) Red Blood Count 4.18 x10^6/uL (3.50-5.40) Hemoglobin 12.9 g/dL (12.0-15.5) Hematocrit 38.8 % (36.0-47.0) Mean Corpuscular Volume 93 fL (79-100) Mean Corpuscular Hemoglobin 31 pg (25-35) Mean Corpuscular Hemoglobin Concent 33 g/dL (31-37) Red Cell Distribution Width 14.5 % (11.5-14.5) Platelet Count 205 x10^3/uL (140-400) Neutrophils (%) (Auto) 41 % (31-73) Lymphocytes (%) (Auto) 31 % (24-48) Monocytes (%) (Auto) 17 % (0-9) Eosinophils (%) (Auto) 10 % (0-3) Basophils (%) (Auto) 1 % (0-3) Neutrophils # (Auto) 1.9 x10^3/uL (1.8-7.7) Lymphocytes # (Auto) 1.5 x10^3/uL (1.0-4.8) Monocytes # (Auto) 0.8 x10^3/uL (0.0-1.1) Eosinophils # (Auto) 0.5 x10^3/uL (0.0-0.7) Basophils # (Auto) 0.0 x10^3/uL (0.0-0.2) Sodium Level 148 mmol/L (136-145) Potassium Level 4.2 mmol/L (3.5-5.1) Chloride Level 107 mmol/L (98-107) Carbon Dioxide Level 39 mmol/L (21-32) Anion Gap 2 (6-14) Blood Urea Nitrogen 13 mg/dL (7-20) Creatinine 0.8 mg/dL (0.6-1.0) Estimated GFR (Cockcroft-Gault) 88.5 BUN/Creatinine Ratio 16 (6-20) Glucose Level 88 mg/dL (70-99) Calcium Level 9.0 mg/dL (8.5-10.1) Magnesium Level 1.9 mg/dL (1.8-2.4) Total Bilirubin 0.4 mg/dL (0.2-1.0) Aspartate Amino Transf (AST/SGOT) 25 U/L (15-37) Alanine Aminotransferase (ALT/SGPT) 22 U/L (14-59) Alkaline Phosphatase 58 U/L (46-116) Creatine Kinase 492 U/L (26-192) Creatine Kinase MB (Mass) 4.6 ng/mL (0.0-3.6) Creatine Kinase MB Relative Index 0.9 % (0-4) Troponin I Quantitative < 0.017 ng/mL (0.000-0.055) Total Protein 6.8 g/dL (6.4-8.2) Albumin 3.6 g/dL (3.4-5.0) Albumin/Globulin Ratio 1.1 (1.0-1.7) Procalcitonin < 0.10 ng/mL (0.00-0.10) Lactic Acid Level 1.1 mmol/L (0.4-2.0) Medications Active Scripts Medications Dose Route/Sig Max Daily Dose Days Date Category Protonix (Pantoprazole Sodium) 20 Mg Tablet.dr 40 Mg PO DAILY 01/13/19 Reported Ferrous Sulfate 300 Mg/5 Ml Liquid 300 Mg PO BIDWMEALS 30 08/29/18 Rx Guaifenesin Dm Syrup (Guaifenesin/Dextromethorphan) 5 Ml Syrup 10 Ml PO PRN Q6HRS PRN 30 05/14/18 Rx Zoloft (Sertraline Hcl) 50 Mg Tablet 1 Tab PO HS 05/10/18 Reported Clopidogrel (Clopidogrel Bisulfate) 75 Mg Tablet 1 Tab PO DAILY 02/25/18 Reported Potassium Chloride 10 Meq Capsule.er 1 Cap PO DAILY 04/26/15 Rx Singulair Tablet (Montelukast Sodium) 10 Mg Tablet 1 Tab PO HS 04/27/14 Reported Lasix (Furosemide) 20 Mg Tablet 1 Tab PO DAILY16 04/27/14 Reported Symbicort 160-4.5 Mcg Inhaler (Budesonide/Formoterol Fumarate) 10.2 Gm Hfa.aer.ad 10.2 Gm IH BID 07/28/13 Reported Albuterol Sulfate Hfa Inhaler (Albuterol Sulfate) 8.5 Gm Hfa.aer.ad 8.5 Gm IH PRN 07/28/13 Reported Duoneb 0.5 Mg-3 Mg/3 Ml Soln (Ipratropium/Albuterol Sulfate) 3 Ml Ampul.neb 3 Ml IH QID 07/28/13 Reported Aspir 81 (Aspirin) 81 Mg Tablet. 81 Mg PO DAILY 07/28/13 Reported Impression . FULL NOTE DICTATED ACUTE/C RESP FAILURE AECOPD ACUTE PNEUMONIA SEE ORDERS GLENIS SCHWARTZ MD Mar 24, 2019 15:13
[2019-03-24] MEDS: ENOXAPARIN 40 MG/0.4 ML SYRINGE. SQ SCH (16:00)
[2019-03-24] MEDS ORDERED: IPRATRPIUM/ALBUTEROL 0.5/2.5MG 3 ML NEBU. NEB SCH (16:00)
--- NOTE | 2019-03-24 16:27 | CONS ---
DATE OF CONSULTATION: 03/24/2019 REASON FOR CONSULTATION: The patient is seen in pulmonary consultation at the request of Dr. Agarwal for acute onset of respiratory distress, hypoxemia, and decreased saturation. HISTORY OF PRESENT ILLNESS: The patient is a 58-year-old female with a history of chronic respiratory failure, chronic bronchitis, secondary pulmonary hypertension, and normally at home on 3 liters of oxygen supplementation. Noted that yesterday she started to experience shortness of breath to the point where she was unable to carry out activities of daily living. She actually saw her primary care provider who placed her on antibiotics. The patient failed outpatient therapy. She presented to the Emergency Room and had a chest x-ray which revealed a right-sided infiltrate. She is admitted with a diagnosis of pneumonia. She has a cough, mostly productive of discolored sputum, and fever at home. O2 saturations decreased down to 89-88% on her normal 3 liters of oxygen supplementation. PAST MEDICAL HISTORY: Chronic respiratory failure, COPD of the chronic bronchitic type of asthma component, coronary artery disease, and history of anxiety disorder. PAST SURGICAL HISTORY: Status post previous angioplasty, hysterectomy, and tonsillectomy. REVIEW OF SYSTEMS: As indicated above. Otherwise, a 10-point system was reviewed and negative. ALLERGIES: PENICILLIN, BENZONATATE, AND MORPHINE. HOME MEDICATIONS: List was reviewed. SOCIAL HISTORY: She denies any tobacco or alcohol use. FAMILY HISTORY: No family history of early lung disorders. PHYSICAL EXAMINATION: VITAL SIGNS: The patient was currently on 4 L of oxygen supplementation and saturation greater than 92%. HEENT: Eyes, the sclerae were nonicteric. NECK: Jugular venous distention was not elevated. No lymphadenopathy. CHEST: Full expansion. LUNGS: Poor airway flow with prolonged expiratory phase, slight rhonchi. CARDIOVASCULAR: Regular rate and rhythm with S1, S2. No S3. ABDOMEN: Soft, nontender, and nondistended. EXTREMITIES: No clubbing or cyanosis. No pitting edema. NEUROLOGIC: The patient was awake, alert, and following commands. A detailed neuro exam was not performed. LABORATORY DATA: Labs were reviewed. White count was normal. Hemoglobin and hematocrit were noted. Sodium was elevated. Chest x-ray revealed a right-sided infiltrate. IMPRESSION: 1. [id number] hypoxemic respiratory failure secondary to acute pneumonia and acute exacerbation of chronic obstructive pulmonary disease. 2. Pneumonia, suspect gram-negative, possibly gram-positive. 3. Progressive dyspnea. 4. Secondary pulmonary hypertension. 5. Jadfj-qp-yhgnxaw cor pulmonale. 6. Anxiety disorder. 7. Hypertension. 8. Coronary artery disease with previous coronary artery bypass grafting. PLAN: As indicated above, the patient failed outpatient therapy. She is now admitted. Yesterday, she attempted to go to work. She arrived at her work and was unable to tolerate the activities of work as a consequence. She left work early and came into the Emergency Room today, was admitted with abnormal x-ray, acute exacerbation of COPD, and pneumonia. We will treat for the above. Continue oxygen supplementation, DVT prophylaxis, and SoluMedrol. We will continue home meds. I do appreciate the privilege in sharing in the patient's care. GLENIS SCHWARTZ MD DR: JENNY/franklin JOB#: [id number] / [id number]
[2019-03-24] MEDS: PANTOPRAZOLE 40 MG TABLET.DR. PO SCH (16:42)
[2019-03-24] MEDS: FUROSEMIDE 20 MG TABLET PO SCH (16:43)
[2019-03-24] MEDS: FERROUS SULFATE ORAL 300 MG/5 ML SOLUTION. PO SCH (16:43)
[2019-03-24 19:15] VITALS: BP 158/95
[2019-03-24] MEDS ORDERED: ACETAMINOPHEN 325 MG TABLET. PO PRN (20:30)
[2019-03-24] MEDS: BUDESONIDE 0.5 MG/2 ML NEBU. NEB SCH (20:31)
[2019-03-24] MEDS: SERTRALINE 50 MG TABLET. PO SCH (20:55)
[2019-03-24] MEDS: methylPREDNISolone SOD SUCC PF 125 MG/2 ML VIAL. IV SCH (20:55)
[2019-03-24] MEDS: MONTELUKAST SODIUM 10 MG TABLET. PO SCH (20:55)
[2019-03-24] MEDS: guaiFENesin DM 200MG/20MG 10 ML SYRUP PO PRN (20:55)
[2019-03-24] MEDS ORDERED: ALPR0.25 PO (20:57)
[2019-03-24] MEDS ORDERED: NON FORMULARY ITEM (Budesonide/Formoterol Fumarate (Symbicort 160-4.5 Mcg Inhaler) 10.2 GM IH SCH (21:00)
[2019-03-24] MEDS: ALPRAZolam 0.25 MG TABLET PO SCH (21:38)
[2019-03-24 23:25] VITALS: BP 137/85
[2019-03-25 02:52] VITALS: BP 158/91
[2019-03-25 04:38] LABS: BASO % 0 % (0-3); EOS % 0 % (0-3); HEMATOCRIT 37.5 % (36.0-47.0); HEMOGLOBIN 12.3 g/dL (12.0-15.5); LYMPH # 0.9 x10^3/uL (1.0-4.8); LYMPH % 15 % (24-48); MEAN CORPUSCULAR HEMOGLOBIN 30 pg (25-35); MEAN CORPUSCULAR HGB CONC 33 g/dL (31-37); MEAN CORPUSCULAR VOLUME 92 fL (79-100); MONO # 0.1 x10^3/uL (0.0-1.1); MONO % 1 % (0-9); NEUT # 4.9 x10^3/uL (1.8-7.7); NEUT % 83 % (31-73); PLATELET COUNT 216 x10^3/uL (140-400); RED BLOOD COUNT 4.07 x10^6/uL (3.50-5.40); RED CELL DISTRIBUTION WIDTH 13.9 % (11.5-14.5); WHITE BLOOD COUNT 5.8 x10^3/uL (4.0-11.0)
[2019-03-25 04:55] LABS: CALCIUM 8.7 mg/dL (8.5-10.1); CREATININE 0.8 mg/dL (0.6-1.0); GFR 88.5
[2019-03-25 07:00] VITALS: BP 154/92
[2019-03-25] MEDS ORDERED: MAG HYDROX/ALUMINUM HYD/SIMETH 30 ML ORAL.SUSP PO PRN (07:15)
[2019-03-25] MEDS ORDERED: HYDROcodone/APAP 7.5/325MG 1 TAB TABLET PO PRN (07:15)
[2019-03-25] MEDS: BUDESONIDE 0.5 MG/2 ML NEBU. NEB SCH ×2 (07:59→19:17)
[2019-03-25] MEDS: IPRATRPIUM/ALBUTEROL 0.5/2.5MG 3 ML NEBU. IH SCH ×4 (07:59→19:17)
[2019-03-25] MEDS: CLOPIDOGREL BISULFATE 75 MG TABLET PO SCH (08:17)
[2019-03-25] MEDS: ASPIRIN ENTERIC COATED 81 MG TABLET.DR. PO SCH (08:17)
[2019-03-25] MEDS: PANTOPRAZOLE 40 MG TABLET.DR. PO SCH (08:18)
[2019-03-25] MEDS: FERROUS SULFATE ORAL 300 MG/5 ML SOLUTION. PO SCH ×2 (08:19→16:22)
[2019-03-25] MEDS: POTASSIUM CHLORIDE 10 MEQ TABLET.ER. PO SCH (09:27)
[2019-03-25] MEDS: ALPRAZolam 0.25 MG TABLET PO SCH ×2 (09:27→22:02)
[2019-03-25] MEDS: methylPREDNISolone SOD SUCC PF 125 MG/2 ML VIAL. IV SCH ×2 (09:27→22:02)
--- NOTE | 2019-03-25 10:10 | PDOC ---
PULMONARY PROGRESS NOTES Subjective Reports exertional SOB, currently on 3 liters N/C, wear 2 liters N/C at home cont. to have non-productive cough. reports nasal congestion Vitals Vital Signs Date Time Temp Pulse Resp B/P (MAP) Pulse Ox O2 Delivery O2 Flow Rate FiO2 03/25/19 07:58 96 Nasal Cannula 3.0 03/25/19 07:00 97.9 75 18 154/92 (112) 97.9 ROS: No Nausea, No Chest Pain, No Abdominal Pain General: Alert, Oriented X4 HEENT: Other Lungs: Wheezing Cardiovascular: S1, S2 Abdomen: Soft, Non-tender Neuro Exam: Alert Extremities: No Edema Skin: Warm, Dry Impression CXR 03/24: Impression: COPD. Small acute lung infiltrate within the right upper lobe. Mild cardiomegaly.Pulmonary arterial hypertension. Labs Laboratory Tests Test 03/24/19 10:03 03/24/19 11:45 03/25/19 03:45 White Blood Count 4.7 x10^3/uL (4.0-11.0) 5.8 x10^3/uL (4.0-11.0) Red Blood Count 4.18 x10^6/uL (3.50-5.40) 4.07 x10^6/uL (3.50-5.40) Hemoglobin 12.9 g/dL (12.0-15.5) 12.3 g/dL (12.0-15.5) Hematocrit 38.8 % (36.0-47.0) 37.5 % (36.0-47.0) Mean Corpuscular Volume 93 fL (79-100) 92 fL (79-100) Mean Corpuscular Hemoglobin 31 pg (25-35) 30 pg (25-35) Mean Corpuscular Hemoglobin Concent 33 g/dL (31-37) 33 g/dL (31-37) Red Cell Distribution Width 14.5 % (11.5-14.5) 13.9 % (11.5-14.5) Platelet Count 205 x10^3/uL (140-400) 216 x10^3/uL (140-400) Neutrophils (%) (Auto) 41 % (31-73) 83 % (31-73) Lymphocytes (%) (Auto) 31 % (24-48) 15 % (24-48) Monocytes (%) (Auto) 17 % (0-9) 1 % (0-9) Eosinophils (%) (Auto) 10 % (0-3) 0 % (0-3) Basophils (%) (Auto) 1 % (0-3) 0 % (0-3) Neutrophils # (Auto) 1.9 x10^3/uL (1.8-7.7) 4.9 x10^3/uL (1.8-7.7) Lymphocytes # (Auto) 1.5 x10^3/uL (1.0-4.8) 0.9 x10^3/uL (1.0-4.8) Monocytes # (Auto) 0.8 x10^3/uL (0.0-1.1) 0.1 x10^3/uL (0.0-1.1) Eosinophils # (Auto) 0.5 x10^3/uL (0.0-0.7) 0.0 x10^3/uL (0.0-0.7) Basophils # (Auto) 0.0 x10^3/uL (0.0-0.2) 0.0 x10^3/uL (0.0-0.2) Sodium Level 148 mmol/L (136-145) 144 mmol/L (136-145) Potassium Level 4.2 mmol/L (3.5-5.1) 4.0 mmol/L (3.5-5.1) Chloride Level 107 mmol/L (98-107) 103 mmol/L (98-107) Carbon Dioxide Level 39 mmol/L (21-32) 34 mmol/L (21-32) Anion Gap 2 (6-14) 7 (6-14) Blood Urea Nitrogen 13 mg/dL (7-20) 10 mg/dL (7-20) Creatinine 0.8 mg/dL (0.6-1.0) 0.8 mg/dL (0.6-1.0) Estimated GFR (Cockcroft-Gault) 88.5 88.5 BUN/Creatinine Ratio 16 (6-20) Glucose Level 88 mg/dL (70-99) 175 mg/dL (70-99) Calcium Level 9.0 mg/dL (8.5-10.1) 8.7 mg/dL (8.5-10.1) Magnesium Level 1.9 mg/dL (1.8-2.4) Total Bilirubin 0.4 mg/dL (0.2-1.0) Aspartate Amino Transf (AST/SGOT) 25 U/L (15-37) Alanine Aminotransferase (ALT/SGPT) 22 U/L (14-59) Alkaline Phosphatase 58 U/L (46-116) Creatine Kinase 492 U/L (26-192) Creatine Kinase MB (Mass) 4.6 ng/mL (0.0-3.6) Creatine Kinase MB Relative Index 0.9 % (0-4) Troponin I Quantitative < 0.017 ng/mL (0.000-0.055) Total Protein 6.8 g/dL (6.4-8.2) Albumin 3.6 g/dL (3.4-5.0) Albumin/Globulin Ratio 1.1 (1.0-1.7) Procalcitonin < 0.10 ng/mL (0.00-0.10) Lactic Acid Level 1.1 mmol/L (0.4-2.0) Laboratory Tests Test 03/24/19 11:45 03/25/19 03:45 Lactic Acid Level 1.1 mmol/L (0.4-2.0) White Blood Count 5.8 x10^3/uL (4.0-11.0) Red Blood Count 4.07 x10^6/uL (3.50-5.40) Hemoglobin 12.3 g/dL (12.0-15.5) Hematocrit 37.5 % (36.0-47.0) Mean Corpuscular Volume 92 fL (79-100) Mean Corpuscular Hemoglobin 30 pg (25-35) Mean Corpuscular Hemoglobin Concent 33 g/dL (31-37) Red Cell Distribution Width 13.9 % (11.5-14.5) Platelet Count 216 x10^3/uL (140-400) Neutrophils (%) (Auto) 83 % (31-73) Lymphocytes (%) (Auto) 15 % (24-48) Monocytes (%) (Auto) 1 % (0-9) Eosinophils (%) (Auto) 0 % (0-3) Basophils (%) (Auto) 0 % (0-3) Neutrophils # (Auto) 4.9 x10^3/uL (1.8-7.7) Lymphocytes # (Auto) 0.9 x10^3/uL (1.0-4.8) Monocytes # (Auto) 0.1 x10^3/uL (0.0-1.1) Eosinophils # (Auto) 0.0 x10^3/uL (0.0-0.7) Basophils # (Auto) 0.0 x10^3/uL (0.0-0.2) Sodium Level 144 mmol/L (136-145) Potassium Level 4.0 mmol/L (3.5-5.1) Chloride Level 103 mmol/L (98-107) Carbon Dioxide Level 34 mmol/L (21-32) Anion Gap 7 (6-14) Blood Urea Nitrogen 10 mg/dL (7-20) Creatinine 0.8 mg/dL (0.6-1.0) Estimated GFR (Cockcroft-Gault) 88.5 Glucose Level 175 mg/dL (70-99) Calcium Level 8.7 mg/dL (8.5-10.1) Medications Active Scripts Medications Dose Route/Sig Max Daily Dose Days Date Category Protonix (Pantoprazole Sodium) 20 Mg Tablet.dr 40 Mg PO DAILY 01/13/19 Reported Ferrous Sulfate 300 Mg/5 Ml Liquid 300 Mg PO BIDWMEALS 30 08/29/18 Rx Guaifenesin Dm Syrup (Guaifenesin/Dextromethorphan) 5 Ml Syrup 10 Ml PO PRN Q6HRS PRN 30 05/14/18 Rx Zoloft (Sertraline Hcl) 50 Mg Tablet 1 Tab PO HS 05/10/18 Reported Clopidogrel (Clopidogrel Bisulfate) 75 Mg Tablet 1 Tab PO DAILY 02/25/18 Reported Potassium Chloride 10 Meq Capsule.er 1 Cap PO DAILY 04/26/15 Rx Singulair Tablet (Montelukast Sodium) 10 Mg Tablet 1 Tab PO HS 04/27/14 Reported Lasix (Furosemide) 20 Mg Tablet 1 Tab PO DAILY16 04/27/14 Reported Symbicort 160-4.5 Mcg Inhaler (Budesonide/Formoterol Fumarate) 10.2 Gm Hfa.aer.ad 10.2 Gm IH BID 07/28/13 Reported Albuterol Sulfate Hfa Inhaler (Albuterol Sulfate) 8.5 Gm Hfa.aer.ad 8.5 Gm IH PRN 07/28/13 Reported Duoneb 0.5 Mg-3 Mg/3 Ml Soln (Ipratropium/Albuterol Sulfate) 3 Ml Ampul.neb 3 Ml IH QID 07/28/13 Reported Aspir 81 (Aspirin) 81 Mg Tablet.dr 81 Mg PO DAILY 07/28/13 Reported Impression . 1. Alldp-ux-joghjrs hypoxemic respiratory failure secondary to acute pneumonia and acute exacerbation of chronic obstructive pulmonary disease. 2. Pneumonia, suspect gram-negative, possibly gram-positive. 3. Progressive dyspnea. 4. Secondary pulmonary hypertension. 5. Lfxvo-le-jhzeneg cor pulmonale. 6. Anxiety disorder. 7. Hypertension. 8. Coronary artery disease with previous coronary artery bypass grafting. Plan . 1. cont. supplemental oxygen 2. Nebs/pulmicort 3. steroids 4. cont. levaquin 5. DVT/GI PPX: lovenox/protonix 6. flonase PRN 7. D/W GLENIS CAMPUZANO MD Mar 25, 2019 10:10
[2019-03-25 11:00] VITALS: BP 141/84
[2019-03-25] MEDS: FLUTICASONE 50MCG/NASAL SPRAY 16GM BOTTLE. NS SCH (11:00)
[2019-03-25] MEDS ORDERED: METHOCARBAMOL 750 MG TABLET PO PRN (11:30)
--- NOTE | 2019-03-25 11:46 | HP ---
ADMIT DATE: 03/24/2019 CHIEF COMPLAINT: Shortness of breath. HISTORY OF PRESENT ILLNESS AND HOSPITAL COURSE: This patient is a 58-year-old -[place] female with oxygen-dependent COPD, came to the Emergency Room with increasing shortness of breath. She states she has been ill for the last month with cough and shortness of breath. In the last 48 hours, she began increasingly short of breath after going to respiratory company to adjust and qualify her for home oxygen. She does use home oxygen 2-3 liters continuously. The patient also takes Zithromax daily as prophylaxis and recently was given Flagyl to help with anaerobic bacteria due to poor dentition and ongoing cough. The patient also complains of right-sided flank pain, not necessarily associated with inspiration. PAST MEDICAL HISTORY: Significant for: 1. COPD. 2. Coronary artery disease, status post coronary artery bypass graft. 3. Pulmonary hypertension with PA pressures above approximately 26 on last echo. 4. Hypertension. 5. Generalized anxiety disorder. 6. Morbid obesity. 7. Reflux esophagitis. 8. History of anemia. FAMILY HISTORY: Significant for hypertension. SOCIAL HISTORY: The patient is a previous smoker, but no longer smokes. She does not use alcohol or illicit drugs. PAST SURGICAL HISTORY: Significant for abdominal hysterectomy, coronary artery bypass graft, angioplasty, and tonsillectomy. ALLERGIES: THE PATIENT EXHIBITS ALLERGIES TO PENICILLIN, BENZONATATE, AND MORPHINE WITH UNKNOWN REACTIONS LISTED. REVIEW OF SYSTEMS: Significant for ongoing cough. She denies sweating, fever or chills. She does have right flank pain. She denies any bowel or bladder issues. She denies leg swelling, weight gain or weight loss. PHYSICAL EXAMINATION: GENERAL: This is a well-nourished, morbidly obese -[place] female, in no apparent distress on my exam, she is alert and oriented x 3. She has very poor dentition. HEENT: Otherwise, benign. NECK: Supple. CARDIAC: Regular rate and rhythm. LUNGS: Revealed decreased breath sounds with crackles in the right upper quadrant and minimal wheezing noted. ABDOMEN: Soft with some mild tenderness in the right upper quadrant and tenderness along the right costal margin. EXTREMITIES: Have 2+ pulses without edema. NEUROLOGIC: Showed no unilateral findings. IMAGING: Chest x-ray revealed acute right upper lobe pneumonia, also stated evidence of cardiomegaly and pulmonary hypertension. ASSESSMENT: 1. Acute on chronic respiratory failure. 2. Right upper lobe pneumonia. 3. Chronic obstructive pulmonary disease with exacerbation. 4. History of coronary artery disease. 5. Right flank pain, suspected to be chest wall and abdominal wall muscle strain. PLAN: To proceed with IV antibiotics, pulmonary consultation, IV steroids, breathing treatments and oxygen support. BAY CHEEMA MD DR: ESTUARDO/franklin JOB#: [id number] / [id number]
[2019-03-25 15:00] VITALS: BP 158/89
[2019-03-25] MEDS: FUROSEMIDE 20 MG TABLET PO SCH (16:22)
[2019-03-25] MEDS: ENOXAPARIN 40 MG/0.4 ML SYRINGE. SQ SCH (16:22)
[2019-03-25 19:37] VITALS: BP 147/89
[2019-03-25] MEDS: LACTOBACILLUS RHAMNOSUS GG 1 CAPSULE. PO SCH (22:01)
[2019-03-25] MEDS: SERTRALINE 50 MG TABLET. PO SCH (22:01)
[2019-03-25] MEDS: guaiFENesin DM 200MG/20MG 10 ML SYRUP PO PRN (22:02)
[2019-03-25] MEDS: MONTELUKAST SODIUM 10 MG TABLET. PO SCH (22:02)
[2019-03-25] MEDS: TEMAZEPAM 15 MG CAPSULE PO PRN (22:46)
[2019-03-25 23:17] VITALS: BP 142/76
[2019-03-26] MEDS: TEMAZEPAM 15 MG CAPSULE PO PRN ×3 (00:16→23:42)
[2019-03-26] MEDS ORDERED: INFLUENZA VAX SCREEN BY RX. MC PRN (00:45)
[2019-03-26 03:24] VITALS: BP 136/63
[2019-03-26] MEDS: IPRATRPIUM/ALBUTEROL 0.5/2.5MG 3 ML NEBU. IH SCH ×4 (07:20→19:24)
[2019-03-26] MEDS: BUDESONIDE 0.5 MG/2 ML NEBU. NEB SCH ×2 (07:20→19:24)
[2019-03-26 07:30] VITALS: BP 135/83
--- NOTE | 2019-03-26 08:14 | PDOC ---
PROGRESS NOTES Subjective Subjective Patient still coughing and sob, Flank pain continues on right. abd sono pending. Objective Objective Vital Signs Date Time Temp Pulse Resp B/P (MAP) Pulse Ox O2 Delivery O2 Flow Rate FiO2 03/26/19 07:18 93 Nasal Cannula 3.0 03/26/19 03:24 98.4 75 20 136/63 (87) 98.4 Intake and Output 03/26/19 07:00 Intake Total 1800 ml Balance 1800 ml Intake Oral 1800 ml # Voids 5 Physical Exam Abdomen: Normal bowel sounds Heart: Regular rate Extremities: No edema General: Alert Lungs: Other (I&E wheezing) Assessment Assessment Problems Medical Problems: (1) Pneumonia Status: Acute 1. Acute on chronic respiratory failure. 2. Right upper lobe pneumonia. 3. Chronic obstructive pulmonary disease with exacerbation. 4. History of coronary artery disease. 5. Right flank pain, suspected to be chest wall and abdominal wall muscle strain. Plan Plan of Care Continue Pulm toilet Await Natty finley report consider PT/OT eval Comment Review of Relevant I have reviewed the following items paulette (where applicable) has been applied. Labs Laboratory Tests Test 03/24/19 10:03 03/24/19 11:45 03/25/19 03:45 White Blood Count 4.7 x10^3/uL (4.0-11.0) 5.8 x10^3/uL (4.0-11.0) Red Blood Count 4.18 x10^6/uL (3.50-5.40) 4.07 x10^6/uL (3.50-5.40) Hemoglobin 12.9 g/dL (12.0-15.5) 12.3 g/dL (12.0-15.5) Hematocrit 38.8 % (36.0-47.0) 37.5 % (36.0-47.0) Mean Corpuscular Volume 93 fL (79-100) 92 fL (79-100) Mean Corpuscular Hemoglobin 31 pg (25-35) 30 pg (25-35) Mean Corpuscular Hemoglobin Concent 33 g/dL (31-37) 33 g/dL (31-37) Red Cell Distribution Width 14.5 % (11.5-14.5) 13.9 % (11.5-14.5) Platelet Count 205 x10^3/uL (140-400) 216 x10^3/uL (140-400) Neutrophils (%) (Auto) 41 % (31-73) 83 % (31-73) Lymphocytes (%) (Auto) 31 % (24-48) 15 % (24-48) Monocytes (%) (Auto) 17 % (0-9) 1 % (0-9) Eosinophils (%) (Auto) 10 % (0-3) 0 % (0-3) Basophils (%) (Auto) 1 % (0-3) 0 % (0-3) Neutrophils # (Auto) 1.9 x10^3/uL (1.8-7.7) 4.9 x10^3/uL (1.8-7.7) Lymphocytes # (Auto) 1.5 x10^3/uL (1.0-4.8) 0.9 x10^3/uL (1.0-4.8) Monocytes # (Auto) 0.8 x10^3/uL (0.0-1.1) 0.1 x10^3/uL (0.0-1.1) Eosinophils # (Auto) 0.5 x10^3/uL (0.0-0.7) 0.0 x10^3/uL (0.0-0.7) Basophils # (Auto) 0.0 x10^3/uL (0.0-0.2) 0.0 x10^3/uL (0.0-0.2) Sodium Level 148 mmol/L (136-145) 144 mmol/L (136-145) Potassium Level 4.2 mmol/L (3.5-5.1) 4.0 mmol/L (3.5-5.1) Chloride Level 107 mmol/L (98-107) 103 mmol/L (98-107) Carbon Dioxide Level 39 mmol/L (21-32) 34 mmol/L (21-32) Anion Gap 2 (6-14) 7 (6-14) Blood Urea Nitrogen 13 mg/dL (7-20) 10 mg/dL (7-20) Creatinine 0.8 mg/dL (0.6-1.0) 0.8 mg/dL (0.6-1.0) Estimated GFR (Cockcroft-Gault) 88.5 88.5 BUN/Creatinine Ratio 16 (6-20) Glucose Level 88 mg/dL (70-99) 175 mg/dL (70-99) Calcium Level 9.0 mg/dL (8.5-10.1) 8.7 mg/dL (8.5-10.1) Magnesium Level 1.9 mg/dL (1.8-2.4) Total Bilirubin 0.4 mg/dL (0.2-1.0) Aspartate Amino Transf (AST/SGOT) 25 U/L (15-37) Alanine Aminotransferase (ALT/SGPT) 22 U/L (14-59) Alkaline Phosphatase 58 U/L (46-116) Creatine Kinase 492 U/L (26-192) Creatine Kinase MB (Mass) 4.6 ng/mL (0.0-3.6) Creatine Kinase MB Relative Index 0.9 % (0-4) Troponin I Quantitative < 0.017 ng/mL (0.000-0.055) Total Protein 6.8 g/dL (6.4-8.2) Albumin 3.6 g/dL (3.4-5.0) Albumin/Globulin Ratio 1.1 (1.0-1.7) Procalcitonin < 0.10 ng/mL (0.00-0.10) Lactic Acid Level 1.1 mmol/L (0.4-2.0) Microbiology 03/24/19 Blood Culture - Preliminary, Resulted NO GROWTH AFTER 1 DAY Medications Current Medications Methylprednisolone Sodium Succinate (SOLU-Medrol 125MG VIAL) 125 mg 1X ONCE IV Last administered on 03/24/19at 10:31; Start 03/24/19 at 09:45; Stop 03/24/19 at 09:46; Status DC Albuterol/ Ipratropium (Duoneb) 3 ml 1X ONCE NEB Last administered on 03/24/19at 09:47; Start 03/24/19 at 09:45; Stop 03/24/19 at 09:46; Status DC Albuterol Sulfate (Ventolin Neb Soln) 10 mg 1X ONCE CONT NEB Last administered on 03/24/19at 10:32; Start 03/24/19 at 10:15; Stop 03/24/19 at 10:16; Status DC Ceftriaxone Sodium (Rocephin) 1 gm 1X STAT IVP Last administered on 03/24/19 11:19; Start 03/24/19 at 10:34; Stop 03/24/19 at 10:53; Status DC Azithromycin 250 ml @ 250 mls/hr 1X ONCE IV Last administered on 03/24/19at 11:19; Start 03/24/19 at 10:45; Stop 03/24/19 at 11:44; Status DC Sodium Chloride 1,000 ml @ 1,000 mls/hr 1X ONCE IV Last administered on 03/24/19at 11:36; Start 03/24/19 at 11:30; Stop 03/24/19 at 12:29; Status DC Ondansetron HCl (Zofran) 4 mg PRN Q8HRS PRN IV NAUSEA/VOMITING; Start 03/24/19 at 12:15; Stop 03/25/19 at 12:14; Status DC Albuterol/ Ipratropium (Duoneb) 3 ml RTQID NEB ; Start 03/24/19 at 16:00; Stop 03/24/19 at 14:00; Status DC Aspirin (Ecotrin) 81 mg DAILY PO Last administered on 03/25/19 08:17; Start 03/25/19 at 09:00 Clopidogrel Bisulfate (Plavix) 75 mg DAILY PO Last administered on 03/25/19 08:17; Start 03/25/19 at 09:00 Ferrous Sulfate (Iron Oral Solution) 300 mg BIDWMEALS PO Last administered on 03/25/19 16:22; Start 03/24/19 at 17:00 Furosemide (Lasix) 20 mg DAILY16 PO Last administered on 03/25/19 16:22; Start 03/24/19 at 16:00 Guaifenesin (Robitussin Dm) 10 ml PRN Q6HRS PRN PO COUGH Last administered on 03/25/19 22:02; Start 03/24/19 at 13:30 Albuterol/ Ipratropium (Duoneb) 3 ml QID IH Last administered on 03/26/19at 07:20; Start 03/24/19 at 14:00 Montelukast Sodium (Singulair) 10 mg HS PO Last administered on 03/25/19at 22:02; Start 03/24/19 at 21:00 Potassium Chloride (Klor-Con) 10 meq DAILY PO Last administered on 03/25/19 09:27; Start 03/25/19 at 09:00 Sertraline HCl (Zoloft) 50 mg HS PO Last administered on 03/25/19 22:01; Start 03/24/19 at 21:00 Non-Formulary Medication (Budesonide/ Formoterol Fumarate (Symbicort 160-4.5 Mcg Inhaler)) 10.2 gm BID IH ; Start 03/24/19 at 21:00; Stop 03/24/19 at 14:00; Status DC Pantoprazole Sodium (Protonix) 40 mg DAILYAC PO Last administered on 03/25/19 08:18; Start 03/24/19 at 16:30 Budesonide (Pulmicort) 0.5 mg RTBID NEB Last administered on 03/26/19 07:20; Start 03/24/19 at 20:00 Levofloxacin/ Dextrose 100 ml @ 100 mls/hr Q24H IV Last administered on 03/25/19 16:16; Start 03/24/19 at 16:00 Methylprednisolone Sodium Succinate (SOLU-Medrol 125MG VIAL) 62.5 mg Q12HR IV Last administered on 03/25/19 22:02; Start 03/24/19 at 21:00 Enoxaparin Sodium (Lovenox 40mg Syringe) 40 mg Q24H SQ Last administered on 03/25/19 16:22; Start 03/24/19 at 16:00 Acetaminophen (Tylenol) 650 mg PRN Q4HRS PRN PO MILD PAIN / TEMP Last administered on 03/24/19 21:38; Start 03/24/19 at 20:30 Alprazolam (Xanax) 0.25 mg BID PO Last administered on 03/25/19 22:02; Start 03/24/19 at 22:00 Acetaminophen/ Hydrocodone Bitart (Lortab 7.5/325) 1 tab PRN Q4HRS PRN PO MODERATE TO SEVERE PAIN Last administered on 03/25/19 16:24; Start 03/25/19 at 07:15 Al Hydroxide/Mg Hydroxide (Mylanta Plus Xs) 30 ml PRN Q2HR PRN PO HEARTBURN / GAS; Start 03/25/19 at 07:15 Fluticasone Propionate (Flonase) 2 spray DAILY NS Last administered on 03/25/19at 11:00; Start 03/25/19 at 11:00 Methocarbamol (Robaxin) 750 mg PRN TID PRN PO MUSCLE SPASMS; Start 03/25/19 at 11:30 Lactobacillus Rhamnosus (Culturelle) 1 cap BID PO Last administered on 03/25/19at 22:01; Start 03/25/19 at 21:00 Temazepam (Restoril) 15 mg PRN QHS PRN PO INSOMNIA Last administered on 03/14 08/30at 00:16; Start 03/25/19 at 22:30 Info (FLU VACCINE SCREEN per RX) 1 each PRN 1X PRN MC SEE COMMENTS; Start 03/26/19 at 00:45 Active Scripts Active Ferrous Sulfate 300 Mg/5 Ml Liquid 300 Mg PO BIDWMEALS 30 Days Guaifenesin Dm Syrup (Guaifenesin/Dextromethorphan) 5 Ml Syrup 10 Ml PO PRN Q6HRS PRN 30 Days Potassium Chloride 10 Meq Capsule.er 1 Cap PO DAILY Reported Xanax (Alprazolam) 0.25 Mg Tablet 0.25 Mg PO BID Protonix (Pantoprazole Sodium) 20 Mg Tablet.dr 40 Mg PO DAILY Zoloft (Sertraline Hcl) 50 Mg Tablet 1 Tab PO HS Clopidogrel (Clopidogrel Bisulfate) 75 Mg Tablet 1 Tab PO DAILY Singulair Tablet (Montelukast Sodium) 10 Mg Tablet 1 Tab PO HS Lasix (Furosemide) 20 Mg Tablet 1 Tab PO DAILY16 Symbicort 160-4.5 Mcg Inhaler (Budesonide/Formoterol Fumarate) 10.2 Gm Hfa.aer.ad 10.2 Gm IH BID Albuterol Sulfate Hfa Inhaler (Albuterol Sulfate) 8.5 Gm Hfa.aer.ad 8.5 Gm IH PRN Duoneb 0.5 Mg-3 Mg/3 Ml Soln (Ipratropium/Albuterol Sulfate) 3 Ml Ampul.neb 3 Ml IH QID Aspir 81 (Aspirin) 81 Mg Tablet.dr 81 Mg PO DAILY Vitals/I & O Vital Sign - Last 24 Hours 03/25/19 03/25/19 03/25/19 03/25/19 11:00 11:35 15:00 15:39 Temp 97.9 97.7 97.9 97.7 Pulse 78 85 Resp 18 18 B/P (MAP) 141/84 (103) 158/89 (112) Pulse Ox 94 95 O2 Delivery Nasal Cannula Nasal Cannula Room Air Nasal Cannula O2 Flow Rate 3.0 3.0 3.0 03/25/19 03/25/19 03/25/19 03/25/19 16:24 17:25 19:17 19:37 Temp 99.4 99.4 Pulse 86 Resp 18 B/P (MAP) 147/89 (108) Pulse Ox 95 95 95 96 O2 Delivery Nasal Cannula Nasal Cannula Nasal Cannula Nasal Cannula O2 Flow Rate 3.0 3.0 3.0 3.0 03/25/19 03/25/19 03/26/19 03/26/19 20:00 23:17 03:24 07:18 Temp 99.2 98.4 99.2 98.4 Pulse 82 75 Resp 18 20 B/P (MAP) 142/76 (98) 136/63 (87) Pulse Ox 95 97 93 O2 Delivery Nasal Cannula Nasal Cannula Nasal Cannula Nasal Cannula O2 Flow Rate 3.0 3.0 3.0 3.0 Intake and Output 03/25/19 03/25/19 03/26/19 15:00 23:00 07:00 Intake Total 700 ml 800 ml 300 ml Balance 700 ml 800 ml 300 ml BAY CHEEMA MD Mar 26, 2019 08:14
--- NOTE | 2019-03-26 08:22 | RAD ---
ABDOMEN COMPLETE History: Right flank pain Comparison: None. Findings: Multiple sonographic images of the abdomen are submitted. Pancreas is incompletely visualized due to bowel gas, no obvious abnormality demonstrated in this region. There is segmental visualization of the inferior vena cava. Abdominal aortic caliber is within normal limits up to 2.3 cm, distally obscured by bowel gas. There is mild coarsening of the hepatic echotexture. Right lobe of the liver measured about 13 cm longitudinal. Right kidney measured 10.8 x 4.2 x 6.5 cm, no hydronephrosis. Gallbladder is present without intraluminal abnormality, wall thickening, pericholecystic fluid. Common bile duct is within normal limits about 0.5 cm. Spleen is not well-visualized due to bowel gas. Left kidney measured 10.5 x 5.1 x 4.9 cm, no hydronephrosis. Impression: 1. Midline structures are incompletely visualized due to bowel gas. There is mild coarsening of the hepatic echotexture likely due to steatosis. No other significant abnormality is demonstrated. Electronically signed by: Oscar Duffy MD (03/26/2019 8:20 AM) [facility]
[2019-03-26] MEDS: FERROUS SULFATE ORAL 300 MG/5 ML SOLUTION. PO SCH ×2 (08:47→16:35)
[2019-03-26] MEDS: FLUTICASONE 50MCG/NASAL SPRAY 16GM BOTTLE. NS SCH (08:47)
[2019-03-26] MEDS: LACTOBACILLUS RHAMNOSUS GG 1 CAPSULE. PO SCH ×2 (08:47→22:28)
[2019-03-26] MEDS: methylPREDNISolone SOD SUCC PF 125 MG/2 ML VIAL. IV SCH ×2 (08:47→22:29)
[2019-03-26] MEDS: POTASSIUM CHLORIDE 10 MEQ TABLET.ER. PO SCH (08:48)
[2019-03-26] MEDS: CLOPIDOGREL BISULFATE 75 MG TABLET PO SCH (08:48)
[2019-03-26] MEDS: ASPIRIN ENTERIC COATED 81 MG TABLET.DR. PO SCH (08:48)
[2019-03-26] MEDS: PANTOPRAZOLE 40 MG TABLET.DR. PO SCH (08:48)
[2019-03-26] MEDS: ALPRAZolam 0.25 MG TABLET PO SCH ×2 (08:48→22:29)
--- NOTE | 2019-03-26 09:46 | PDOC ---
PULMONARY PROGRESS NOTES Subjective Cont. to have exertional SOB, currently on 3 liters N/C, cont. to have non-productive cough. Denies any increase in cough Vitals Vital Signs Date Time Temp Pulse Resp B/P (MAP) Pulse Ox O2 Delivery O2 Flow Rate FiO2 03/26/19 07:30 98.1 111 18 135/83 (100) 96 Nasal Cannula 3.0 98.1 ROS: No Nausea, No Chest Pain, No Abdominal Pain, No Increase Cough General: Alert, Oriented X4 HEENT: Other Lungs: Wheezing Cardiovascular: S1, S2 Abdomen: Soft, Non-tender Neuro Exam: Alert Extremities: No Edema Skin: Warm, Dry Impression CXR 03/24: Impression: COPD. Small acute lung infiltrate within the right upper lobe. Mild cardiomegaly.Pulmonary arterial hypertension. Abdominal U/S 03/25/19:Impression: Midline structures are incompletely visualized due to bowel gas. Thereis mild coarsening of the hepatic echotexture likely due to steatosis. No other significant abnormality is demonstrated. Labs Laboratory Tests Test 03/24/19 10:03 03/24/19 11:45 03/25/19 03:45 White Blood Count 4.7 x10^3/uL (4.0-11.0) 5.8 x10^3/uL (4.0-11.0) Red Blood Count 4.18 x10^6/uL (3.50-5.40) 4.07 x10^6/uL (3.50-5.40) Hemoglobin 12.9 g/dL (12.0-15.5) 12.3 g/dL (12.0-15.5) Hematocrit 38.8 % (36.0-47.0) 37.5 % (36.0-47.0) Mean Corpuscular Volume 93 fL (79-100) 92 fL (79-100) Mean Corpuscular Hemoglobin 31 pg (25-35) 30 pg (25-35) Mean Corpuscular Hemoglobin Concent 33 g/dL (31-37) 33 g/dL (31-37) Red Cell Distribution Width 14.5 % (11.5-14.5) 13.9 % (11.5-14.5) Platelet Count 205 x10^3/uL (140-400) 216 x10^3/uL (140-400) Neutrophils (%) (Auto) 41 % (31-73) 83 % (31-73) Lymphocytes (%) (Auto) 31 % (24-48) 15 % (24-48) Monocytes (%) (Auto) 17 % (0-9) 1 % (0-9) Eosinophils (%) (Auto) 10 % (0-3) 0 % (0-3) Basophils (%) (Auto) 1 % (0-3) 0 % (0-3) Neutrophils # (Auto) 1.9 x10^3/uL (1.8-7.7) 4.9 x10^3/uL (1.8-7.7) Lymphocytes # (Auto) 1.5 x10^3/uL (1.0-4.8) 0.9 x10^3/uL (1.0-4.8) Monocytes # (Auto) 0.8 x10^3/uL (0.0-1.1) 0.1 x10^3/uL (0.0-1.1) Eosinophils # (Auto) 0.5 x10^3/uL (0.0-0.7) 0.0 x10^3/uL (0.0-0.7) Basophils # (Auto) 0.0 x10^3/uL (0.0-0.2) 0.0 x10^3/uL (0.0-0.2) Sodium Level 148 mmol/L (136-145) 144 mmol/L (136-145) Potassium Level 4.2 mmol/L (3.5-5.1) 4.0 mmol/L (3.5-5.1) Chloride Level 107 mmol/L (98-107) 103 mmol/L (98-107) Carbon Dioxide Level 39 mmol/L (21-32) 34 mmol/L (21-32) Anion Gap 2 (6-14) 7 (6-14) Blood Urea Nitrogen 13 mg/dL (7-20) 10 mg/dL (7-20) Creatinine 0.8 mg/dL (0.6-1.0) 0.8 mg/dL (0.6-1.0) Estimated GFR (Cockcroft-Gault) 88.5 88.5 BUN/Creatinine Ratio 16 (6-20) Glucose Level 88 mg/dL (70-99) 175 mg/dL (70-99) Calcium Level 9.0 mg/dL (8.5-10.1) 8.7 mg/dL (8.5-10.1) Magnesium Level 1.9 mg/dL (1.8-2.4) Total Bilirubin 0.4 mg/dL (0.2-1.0) Aspartate Amino Transf (AST/SGOT) 25 U/L (15-37) Alanine Aminotransferase (ALT/SGPT) 22 U/L (14-59) Alkaline Phosphatase 58 U/L (46-116) Creatine Kinase 492 U/L (26-192) Creatine Kinase MB (Mass) 4.6 ng/mL (0.0-3.6) Creatine Kinase MB Relative Index 0.9 % (0-4) Troponin I Quantitative < 0.017 ng/mL (0.000-0.055) Total Protein 6.8 g/dL (6.4-8.2) Albumin 3.6 g/dL (3.4-5.0) Albumin/Globulin Ratio 1.1 (1.0-1.7) Procalcitonin < 0.10 ng/mL (0.00-0.10) Lactic Acid Level 1.1 mmol/L (0.4-2.0) Medications Active Scripts Medications Dose Route/Sig Max Daily Dose Days Date Category Protonix (Pantoprazole Sodium) 20 Mg Tablet.dr 40 Mg PO DAILY 01/13/19 Reported Ferrous Sulfate 300 Mg/5 Ml Liquid 300 Mg PO BIDWMEALS 30 08/29/18 Rx Guaifenesin Dm Syrup (Guaifenesin/Dextromethorphan) 5 Ml Syrup 10 Ml PO PRN Q6HRS PRN 30 05/14/18 Rx Zoloft (Sertraline Hcl) 50 Mg Tablet 1 Tab PO HS 05/10/18 Reported Clopidogrel (Clopidogrel Bisulfate) 75 Mg Tablet 1 Tab PO DAILY 02/25/18 Reported Potassium Chloride 10 Meq Capsule.er 1 Cap PO DAILY 04/26/15 Rx Singulair Tablet (Montelukast Sodium) 10 Mg Tablet 1 Tab PO HS 04/27/14 Reported Lasix (Furosemide) 20 Mg Tablet 1 Tab PO DAILY16 04/27/14 Reported Symbicort 160-4.5 Mcg Inhaler (Budesonide/Formoterol Fumarate) 10.2 Gm Hfa.aer.ad 10.2 Gm IH BID 07/28/13 Reported Albuterol Sulfate Hfa Inhaler (Albuterol Sulfate) 8.5 Gm Hfa.aer.ad 8.5 Gm IH PRN 07/28/13 Reported Duoneb 0.5 Mg-3 Mg/3 Ml Soln (Ipratropium/Albuterol Sulfate) 3 Ml Ampul.neb 3 Ml IH QID 07/28/13 Reported Aspir 81 (Aspirin) 81 Mg Tablet.dr 81 Mg PO DAILY 07/28/13 Reported Impression . 1. Heuvr-ih-gfodaab hypoxemic respiratory failure secondary to acute pneumonia and acute exacerbation of chronic obstructive pulmonary disease- ongoing/stable 2. Pneumonia, suspect gram-negative, possibly gram-positive- stable 3. Progressive dyspnea---improving 4. Secondary pulmonary hypertension---stable 5. Tgckt-[id number]-lfgiddq cor pulmonale---- improving/stable 6. Anxiety disorder. 7. Hypertension. 8. Coronary artery disease with previous coronary artery bypass grafting. Plan . 1. cont. supplemental oxygen 2. Nebs/pulmicort 3. steroids with taper 4. cont. levaquin 5. DVT/GI PPX: lovenox/protonix 7. D/W GLENIS CAMPUZANO MD Mar 26, 2019 09:46
[2019-03-26 10:56] VITALS: BP 147/80
[2019-03-26 14:49] VITALS: BP 153/93
[2019-03-26] MEDS ORDERED: FLU VAX QS 2019-20 (36MOS+)/PF 0.5 ML SYRINGE. VAX IM ONE (15:00)
[2019-03-26] MEDS: ENOXAPARIN 40 MG/0.4 ML SYRINGE. SQ SCH (16:35)
[2019-03-26] MEDS: FUROSEMIDE 20 MG TABLET PO SCH (16:36)
[2019-03-26 19:35] VITALS: BP 144/75
[2019-03-26] MEDS: MONTELUKAST SODIUM 10 MG TABLET. PO SCH (22:28)
[2019-03-26] MEDS: SERTRALINE 50 MG TABLET. PO SCH (22:29)
[2019-03-26] MEDS: guaiFENesin DM 200MG/20MG 10 ML SYRUP PO PRN (22:43)
[2019-03-26 23:34] VITALS: BP 166/96
[2019-03-27 03:50] VITALS: BP 145/78
[2019-03-27 07:00] VITALS: BP 141/80
[2019-03-27] MEDS: IPRATRPIUM/ALBUTEROL 0.5/2.5MG 3 ML NEBU. IH SCH ×4 (07:25→19:10)
[2019-03-27] MEDS: BUDESONIDE 0.5 MG/2 ML NEBU. NEB SCH ×2 (07:26→19:10)
--- NOTE | 2019-03-27 08:07 | PDOC ---
PROGRESS NOTES Subjective Subjective Patient reports cough is a little better but still dry. Objective Objective Vital Signs Date Time Temp Pulse Resp B/P (MAP) Pulse Ox O2 Delivery O2 Flow Rate FiO2 03/27/19 07:27 96 Nasal Cannula 3.0 03/27/19 03:50 98.9 71 20 145/78 (100) 98.9 Intake and Output 03/27/19 06:59 Intake Total 2330 ml Balance 2330 ml Intake Oral 2330 ml # Voids 2 Physical Exam Abdomen: Normal bowel sounds, Soft, No tenderness Heart: Regular rate Extremities: No edema General: Alert, Oriented X3, No acute distress Lungs: Other (moderate expiratory BS throughout, occasional dry cough) Assessment Assessment Problems Medical Problems: (1) Pneumonia Status: Acute Plan Plan of Care 1. Acute on chronic respiratory failure with AE COPD and RUL pneumonia - slowly improving but still symptomatic. Continue Levaquin, Solumedrol, nebs and O2. Add Mucinex, Pulmonary following. 2. R chest wall pain - TTP. States [facility] is helping this. Abdominal u/s showed fatty liver, otherwise unremarkable. 3. Depression with chronic anxiety - continue Sertraline. Patient states she takes Xanax but this is not on her present medication list on office chart. Risks discussed. Will not continue at discharge. 4. hx CAD - stable, continue home medications. Comment Review of Relevant I have reviewed the following items paulette (where applicable) has been applied. Labs Microbiology 03/24/19 Blood Culture - Preliminary, Resulted NO GROWTH AFTER 2 DAYS Medications Current Medications Methylprednisolone Sodium Succinate (SOLU-Medrol 125MG VIAL) 125 mg 1X ONCE IV Last administered on 03/24/19at 10:31; Start 03/24/19 at 09:45; Stop 03/24/19 at 09:46; Status DC Albuterol/ Ipratropium (Duoneb) 3 ml 1X ONCE NEB Last administered on 03/24/19at 09:47; Start 03/24/19 at 09:45; Stop 03/24/19 at 09:46; Status DC Albuterol Sulfate (Ventolin Neb Soln) 10 mg 1X ONCE CONT NEB Last administered on 03/24/19at 10:32; Start 03/24/19 at 10:15; Stop 03/24/19 at 10:16; Status DC Ceftriaxone Sodium (Rocephin) 1 gm 1X STAT IVP Last administered on 03/24/19 11:19; Start 03/24/19 at 10:34; Stop 03/24/19 at 10:53; Status DC Azithromycin 250 ml @ 250 mls/hr 1X ONCE IV Last administered on 03/24/19at 11:19; Start 03/24/19 at 10:45; Stop 03/24/19 at 11:44; Status DC Sodium Chloride 1,000 ml @ 1,000 mls/hr 1X ONCE IV Last administered on 03/24/19at 11:36; Start 03/24/19 at 11:30; Stop 03/24/19 at 12:29; Status DC Ondansetron HCl (Zofran) 4 mg PRN Q8HRS PRN IV NAUSEA/VOMITING; Start 03/24/19 at 12:15; Stop 03/25/19 at 12:14; Status DC Albuterol/ Ipratropium (Duoneb) 3 ml RTQID NEB ; Start 03/24/19 at 16:00; Stop 03/24/19 at 14:00; Status DC Aspirin (Ecotrin) 81 mg DAILY PO Last administered on 03/26/19 08:48; Start 03/25/19 at 09:00 Clopidogrel Bisulfate (Plavix) 75 mg DAILY PO Last administered on 03/26/19 08:48; Start 03/25/19 at 09:00 Ferrous Sulfate (Iron Oral Solution) 300 mg BIDWMEALS PO Last administered on 03/26/19 16:35; Start 03/24/19 at 17:00 Furosemide (Lasix) 20 mg DAILY16 PO Last administered on 03/26/19 16:36; Start 03/24/19 at 16:00 Guaifenesin (Robitussin Dm) 10 ml PRN Q6HRS PRN PO COUGH Last administered on 03/26/19 22:43; Start 03/24/19 at 13:30 Albuterol/ Ipratropium (Duoneb) 3 ml QID IH Last administered on 03/27/19 07:25; Start 03/24/19 at 14:00 Montelukast Sodium (Singulair) 10 mg HS PO Last administered on 03/26/19 22:28; Start 03/24/19 at 21:00 Potassium Chloride (Klor-Con) 10 meq DAILY PO Last administered on 03/26/19 08:48; Start 03/25/19 at 09:00 Sertraline HCl (Zoloft) 50 mg HS PO Last administered on 03/26/19 22:29; Start 03/24/19 at 21:00 Non-Formulary Medication (Budesonide/ Formoterol Fumarate (Symbicort 160-4.5 Mcg Inhaler)) 10.2 gm BID IH ; Start 03/24/19 at 21:00; Stop 03/24/19 at 14:00; Status DC Pantoprazole Sodium (Protonix) 40 mg DAILYAC PO Last administered on 03/26/19 08:48; Start 03/24/19 at 16:30 Budesonide (Pulmicort) 0.5 mg RTBID NEB Last administered on 03/27/19 07:26; Start 03/24/19 at 20:00 Levofloxacin/ Dextrose 100 ml @ 100 mls/hr Q24H IV Last administered on 03/26/19 16:34; Start 03/24/19 at 16:00 Methylprednisolone Sodium Succinate (SOLU-Medrol 125MG VIAL) 62.5 mg Q12HR IV Last administered on 03/26/19 22:29; Start 03/24/19 at 21:00 Enoxaparin Sodium (Lovenox 40mg Syringe) 40 mg Q24H SQ Last administered on 03/26/19 16:35; Start 03/24/19 at 16:00 Acetaminophen (Tylenol) 650 mg PRN Q4HRS PRN PO MILD PAIN / TEMP Last administered on 03/24/19 21:38; Start 03/24/19 at 20:30 Alprazolam (Xanax) 0.25 mg BID PO Last administered on 03/26/19 22:29; Start 03/24/19 at 22:00 Acetaminophen/ Hydrocodone Bitart (Lortab 7.5/325) 1 tab PRN Q4HRS PRN PO MODERATE TO SEVERE PAIN Last administered on 03/25/19 16:24; Start 03/25/19 at 07:15 Al Hydroxide/Mg Hydroxide (Mylanta Plus Xs) 30 ml PRN Q2HR PRN PO HEARTBURN / GAS; Start 03/25/19 at 07:15 Fluticasone Propionate (Flonase) 2 spray DAILY NS Last administered on 03/26/19at 08:47; Start 03/25/19 at 11:00 Methocarbamol (Robaxin) 750 mg PRN TID PRN PO MUSCLE SPASMS; Start 03/25/19 at 11:30 Lactobacillus Rhamnosus (Culturelle) 1 cap BID PO Last administered on 03/26/19at 22:28; Start 03/25/19 at 21:00 Temazepam (Restoril) 15 mg PRN QHS PRN PO INSOMNIA Last administered on 03/26/19at 23:42; Start 03/25/19 at 22:30 Info (FLU VACCINE SCREEN per RX) 1 each PRN 1X PRN MC SEE COMMENTS; Start 03/26/19 at 00:45; Status Cancel Influenza Virus Vaccine Quadrival (Afluria Quad 2019-20 (3yr Up) Syringe) 0.5 ml ONCE ONCE VAX IM Last administered on 03/26/19at 22:38; Start 03/26/19 at 15:00; Stop 03/26/19 at 15:01; Status DC Active Scripts Active Ferrous Sulfate 300 Mg/5 Ml Liquid 300 Mg PO BIDWMEALS 30 Days Guaifenesin Dm Syrup (Guaifenesin/Dextromethorphan) 5 Ml Syrup 10 Ml PO PRN Q6HRS PRN 30 Days Potassium Chloride 10 Meq Capsule.er 1 Cap PO DAILY Reported Xanax (Alprazolam) 0.25 Mg Tablet 0.25 Mg PO BID Protonix (Pantoprazole Sodium) 20 Mg Tablet.dr 40 Mg PO DAILY Zoloft (Sertraline Hcl) 50 Mg Tablet 1 Tab PO HS Clopidogrel (Clopidogrel Bisulfate) 75 Mg Tablet 1 Tab PO DAILY Singulair Tablet (Montelukast Sodium) 10 Mg Tablet 1 Tab PO HS Lasix (Furosemide) 20 Mg Tablet 1 Tab PO DAILY16 Symbicort 160-4.5 Mcg Inhaler (Budesonide/Formoterol Fumarate) 10.2 Gm H fa.aer.ad 10.2 Gm IH BID Albuterol Sulfate Hfa Inhaler (Albuterol Sulfate) 8.5 Gm Hfa.aer.ad 8.5 Gm IH PRN Duoneb 0.5 Mg-3 Mg/3 Ml Soln (Ipratropium/Albuterol Sulfate) 3 Ml Ampul.neb 3 Ml IH QID Aspir 81 (Aspirin) 81 Mg Tablet. 81 Mg PO DAILY Vitals/I & O Vital Sign - Last 24 Hours 03/26/19 03/26/19 03/26/19 03/26/19 10:56 11:16 14:49 16:22 Temp 98.1 98.6 98.1 98.6 Pulse 104 113 Resp 18 18 B/P (MAP) 147/80 (102) 153/93 (113) Pulse Ox 96 94 O2 Delivery Nasal Cannula Nasal Cannula Nasal Cannula Nasal Cannula O2 Flow Rate 3.0 3.0 3.0 3.0 03/26/19 03/26/19 03/26/19 03/26/19 19:26 19:35 20:10 23:34 Temp 99.2 97.6 99.2 97.6 Pulse 94 91 Resp 20 20 B/P (MAP) 144/75 (98) 166/96 (119) Pulse Ox 94 94 95 O2 Delivery Nasal Cannula Nasal Cannula Nasal Cannula Nasal Cannula O2 Flow Rate 3.0 3.0 3.0 3.0 03/27/19 03/27/19 03:50 07:27 Temp 98.9 98.9 Pulse 71 Resp 20 B/P (MAP) 145/78 (100) Pulse Ox 98 96 O2 Delivery Nasal Cannula Nasal Cannula O2 Flow Rate 3.0 3.0 Intake and Output 03/26/19 03/26/19 03/27/19 14:59 22:59 06:59 Intake Total 580 ml 1400 ml 350 ml Balance 580 ml 1400 ml 350 ml GUZMAN GALLEGOS MD Mar 27, 2019 08:06
--- NOTE | 2019-03-27 08:14 | RAD ---
CHEST AP ONLY History: Cough Comparison: 03/24/2019 Findings: Single view of the chest is submitted. There is again prominence of the central pulmonary vessels, could be seen with pulmonary hypertension. Cardiac silhouette is stable. There is likely mild left base atelectasis more apparent on this exam. Previously suggested small opacity of the mid to superior right hemithorax persists although somewhat less apparent. There is atherosclerotic calcification near aortic arch. There is no significant dependent pleural fluid or pneumothorax. Impression: 1. There is mild left base atelectasis. 2. There is some mild opacity of the mid to superior right hemithorax although somewhat less apparent on this exam. Electronically signed by: Oscar Duffy MD (03/27/2019 8:11 AM) [id number]
[2019-03-27] MEDS: LACTOBACILLUS RHAMNOSUS GG 1 CAPSULE. PO SCH ×2 (08:40→20:58)
[2019-03-27] MEDS: methylPREDNISolone SOD SUCC PF 125 MG/2 ML VIAL. IV SCH ×2 (08:40→20:59)
[2019-03-27] MEDS: ALPRAZolam 0.25 MG TABLET PO SCH ×2 (08:40→20:58)
[2019-03-27] MEDS: FLUTICASONE 50MCG/NASAL SPRAY 16GM BOTTLE. NS SCH (08:40)
[2019-03-27] MEDS: PANTOPRAZOLE 40 MG TABLET.DR. PO SCH (08:40)
[2019-03-27] MEDS: FERROUS SULFATE ORAL 300 MG/5 ML SOLUTION. PO SCH ×2 (08:40→16:27)
[2019-03-27] MEDS: ASPIRIN ENTERIC COATED 81 MG TABLET.DR. PO SCH (08:40)
[2019-03-27] MEDS: POTASSIUM CHLORIDE 10 MEQ TABLET.ER. PO SCH (08:40)
[2019-03-27] MEDS: CLOPIDOGREL BISULFATE 75 MG TABLET PO SCH (08:40)
--- NOTE | 2019-03-27 10:09 | PDOC ---
PULMONARY PROGRESS NOTES Subjective STILL WHEEZING AND SOA Vitals Vital Signs Date Time Temp Pulse Resp B/P (MAP) Pulse Ox O2 Delivery O2 Flow Rate FiO2 03/27/19 08:00 Nasal Cannula 3.0 03/27/19 07:27 96 03/27/19 07:00 99.0 79 20 141/80 (100) 99.0 ROS: No Nausea, No Chest Pain, No Abdominal Pain, No Increase Cough General: Alert HEENT: Other Lungs: Wheezing Cardiovascular: S1, S2 Abdomen: Soft, Non-tender Neuro Exam: Alert Extremities: No Edema Skin: Warm, Dry Impression CXR 03/24: Impression: COPD. Small acute lung infiltrate within the right upper lobe. Mild cardiomegaly.Pulmonary arterial hypertension. Abdominal U/S 03/25/19:Impression: Midline structures are incompletely visua lized due to bowel gas. Thereis mild coarsening of the hepatic echotexture likely due to steatosis. No other significant abnormality is demonstrated. Medications Active Scripts Medications Dose Route/Sig Max Daily Dose Days Date Category Protonix (Pantoprazole Sodium) 20 Mg Tablet.dr 40 Mg PO DAILY 01/13/19 Reported Ferrous Sulfate 300 Mg/5 Ml Liquid 300 Mg PO BIDWMEALS 30 08/29/18 Rx Guaifenesin Dm Syrup (Guaifenesin/Dextromethorphan) 5 Ml Syrup 10 Ml PO PRN Q6HRS PRN 30 05/14/18 Rx Zoloft (Sertraline Hcl) 50 Mg Tablet 1 Tab PO HS 05/10/18 Reported Clopidogrel (Clopidogrel Bisulfate) 75 Mg Tablet 1 Tab PO DAILY 02/25/18 Reported Potassium Chloride 10 Meq Capsule.er 1 Cap PO DAILY 04/26/15 Rx Singulair Tablet (Montelukast Sodium) 10 Mg Tablet 1 Tab PO HS 04/27/14 Reported Lasix (Furosemide) 20 Mg Tablet 1 Tab PO DAILY16 04/27/14 Reported Symbicort 160-4.5 Mcg Inhaler (Budesonide/Formoterol Fumarate) 10.2 Gm Hfa.aer.ad 10.2 Gm IH BID 07/28/13 Reported Albuterol Sulfate Hfa Inhaler (Albuterol Sulfate) 8.5 Gm Hfa.aer.ad 8.5 Gm IH PRN 07/28/13 Reported Duoneb 0.5 Mg-3 Mg/3 Ml Soln (Ipratropium/Albuterol Sulfate) 3 Ml Ampul.neb 3 Ml IH QID 07/28/13 Reported Aspir 81 (Aspirin) 81 Mg Tablet. 81 Mg PO DAILY 07/28/13 Reported Impression . 1. Wkwhr-qa-[id number] hypoxemic respiratory failure secondary to acute pneumonia and acute exacerbation of chronic obstructive pulmonary disease- ongoing/stable 2. Pneumonia, suspect gram-negative, possibly gram-positive- stable 3. Progressive dyspnea---improving 4. Secondary pulmonary hypertension---stable 5. Zyato-tv-[id number] cor pulmonale---- improving/stable 6. Anxiety disorder. 7. Hypertension. 8. Coronary artery disease with previous coronary artery bypass grafting. 9. ANXIETY DISORDER Plan . I HAVE WRITTEN FOR XANAX IN PAST PT HAS DONE WELL OK TO D/C IN AM IF BETTER SHE NORMALLY ALWAYS WHEEZES TAPER PRED OUTPT HOME ON GLENIS SIMPSON MD Mar 27, 2019 10:09
[2019-03-27 11:42] VITALS: BP 148/77
[2019-03-27] MEDS: guaiFENesin DM 200MG/20MG 10 ML SYRUP PO PRN ×2 (13:20→22:51)
[2019-03-27 15:41] VITALS: BP 140/87
[2019-03-27] MEDS: ENOXAPARIN 40 MG/0.4 ML SYRINGE. SQ SCH (16:27)
[2019-03-27] MEDS: FUROSEMIDE 20 MG TABLET PO SCH (16:27)
[2019-03-27] MEDS: guaiFENesin/CODEINE 100mg/10mg 5 ML LIQUID PO PRN (16:57)
[2019-03-27 19:20] VITALS: BP 121/83
[2019-03-27] MEDS: SERTRALINE 50 MG TABLET. PO SCH (20:58)
[2019-03-27] MEDS: MONTELUKAST SODIUM 10 MG TABLET. PO SCH (20:58)
[2019-03-27] MEDS: TEMAZEPAM 15 MG CAPSULE PO PRN (22:51)
[2019-03-27 23:20] VITALS: BP 143/89
[2019-03-28] MEDS: guaiFENesin/CODEINE 100mg/10mg 5 ML LIQUID PO PRN (02:33)
[2019-03-28 03:20] VITALS: BP 140/89
[2019-03-28 07:00] VITALS: BP 149/89
--- NOTE | 2019-03-28 07:46 | PDOC ---
PROGRESS NOTES Subjective Subjective Patient feels she is doing better, feels ready to go home today. Objective Objective Vital Signs Date Time Temp Pulse Resp B/P (MAP) Pulse Ox O2 Delivery O2 Flow Rate FiO2 03/28/19 03:20 98.7 71 17 140/89 (106) 96 Nasal Cannula 3.0 98.7 Intake and Output 03/28/19 07:00 Intake Total 1750 ml Balance 1750 ml Intake Oral 1750 ml # Voids 9 # Bowel Movements 2 Physical Exam Abdomen: Normal bowel sounds, Soft, No tenderness Heart: Regular rate Extremities: No edema General: Alert, Oriented X3, No acute distress Lungs: Other (few expiratory wheezes throughout) Assessment Assessment Problems Medical Problems: (1) Pneumonia Status: Acute Plan Plan of Care 1. Acute on chronic respiratory failure with AE COPD and pneumonia - improved, home today on po Levaquin, Prednisone taper and cough syrup. Has already received flu shot. 2. chronic anxiety - stable, continue Sertraline daily. 3. chest wall pain - improved, OTC meds prn. 4. hx CAD - stable, continue meds per Cardiology. Comment Review of Relevant I have reviewed the following items paulette (where applicable) has been applied. Labs Microbiology 03/24/19 Blood Culture - Preliminary, Resulted NO GROWTH AFTER 3 DAYS Medications Current Medications Methylprednisolone Sodium Succinate (SOLU-Medrol 125MG VIAL) 125 mg 1X ONCE IV Last administered on 03/24/19at 10:31; Start 03/24/19 at 09:45; Stop 03/24/19 at 09:46; Status DC Albuterol/ Ipratropium (Duoneb) 3 ml 1X ONCE NEB Last administered on 03/24/19at 09:47; Start 03/24/19 at 09:45; Stop 03/24/19 at 09:46; Status DC Albuterol Sulfate (Ventolin Neb Soln) 10 mg 1X ONCE CONT NEB Last administered on 03/24/19at 10:32; Start 03/24/19 at 10:15; Stop 03/24/19 at 10:16; Status DC Ceftriaxone Sodium (Rocephin) 1 gm 1X STAT IVP Last administered on 03/24/19at 11:19; Start 03/24/19 at 10:34; Stop 03/24/19 at 10:53; Status DC Azithromycin 250 ml @ 250 mls/hr 1X ONCE IV Last administered on 03/24/19 11:19; Start 03/24/19 at 10:45; Stop 03/24/19 at 11:44; Status DC Sodium Chloride 1,000 ml @ 1,000 mls/hr 1X ONCE IV Last administered on 03/24/19at 11:36; Start 03/24/19 at 11:30; Stop 03/24/19 at 12:29; Status DC Ondansetron HCl (Zofran) 4 mg PRN Q8HRS PRN IV NAUSEA/VOMITING; Start 03/24/19 at 12:15; Stop 03/25/19 at 12:14; Status DC Albuterol/ Ipratropium (Duoneb) 3 ml RTQID NEB ; Start 03/24/19 at 16:00; Stop 03/24/19 at 14:00; Status DC Aspirin (Ecotrin) 81 mg DAILY PO Last administered on 03/27/19 08:40; Start 03/25/19 at 09:00 Clopidogrel Bisulfate (Plavix) 75 mg DAILY PO Last administered on 03/27/19 08:40; Start 03/25/19 at 09:00 Ferrous Sulfate (Iron Oral Solution) 300 mg BIDWMEALS PO Last administered on 03/27/19 16:27; Start 03/24/19 at 17:00 Furosemide (Lasix) 20 mg DAILY16 PO Last administered on 03/27/19 16:27; Start 03/24/19 at 16:00 Guaifenesin (Robitussin Dm) 10 ml PRN Q6HRS PRN PO COUGH Last administered on 03/27/19 22:51; Start 03/24/19 at 13:30 Albuterol/ Ipratropium (Duoneb) 3 ml QID IH Last administered on 03/27/19 19:10; Start 03/24/19 at 14:00 Montelukast Sodium (Singulair) 10 mg HS PO Last administered on 03/27/19 20:58; Start 03/24/19 at 21:00 Potassium Chloride (Klor-Con) 10 meq DAILY PO Last administered on 03/27/19 08:40; Start 03/25/19 at 09:00 Sertraline HCl (Zoloft) 50 mg HS PO Last administered on 03/27/19 20:58; Start 03/24/19 at 21:00 Non-Formulary Medication (Budesonide/ Formoterol Fumarate (Symbicort 160-4.5 Mcg Inhaler)) 10.2 gm BID IH ; Start 03/24/19 at 21:00; Stop 03/24/19 at 14:00; Status DC Pantoprazole Sodium (Protonix) 40 mg DAILYAC PO Last administered on 03/27/19 08:40; Start 03/24/19 at 16:30 Budesonide (Pulmicort) 0.5 mg RTBID NEB Last administered on 03/27/19 19:10; Start 03/24/19 at 20:00 Levofloxacin/ Dextrose 100 ml @ 100 mls/hr Q24H IV Last administered on 03/27/19 16:27; Start 03/24/19 at 16:00 Methylprednisolone Sodium Succinate (SOLU-Medrol 125MG VIAL) 62.5 mg Q12HR IV Last administered on 03/27/19 20:59; Start 03/24/19 at 21:00 Enoxaparin Sodium (Lovenox 40mg Syringe) 40 mg Q24H SQ Last administered on 03/27/19 16:27; Start 03/24/19 at 16:00 Acetaminophen (Tylenol) 650 mg PRN Q4HRS PRN PO MILD PAIN / TEMP Last administered on 03/24/19 21:38; Start 03/24/19 at 20:30 Alprazolam (Xanax) 0.25 mg BID PO Last administered on 03/27/19 20:58; Start 03/24/19 at 22:00 Acetaminophen/ Hydrocodone Bitart (Lortab 7.5/325) 1 tab PRN Q4HRS PRN PO MODERATE TO SEVERE PAIN Last administered on 03/25/19 16:24; Start 03/25/19 at 07:15 Al Hydroxide/Mg Hydroxide (Mylanta Plus Xs) 30 ml PRN Q2HR PRN PO HEARTBURN / GAS; Start 03/25/19 at 07:15 Fluticasone Propionate (Flonase) 2 spray DAILY NS Last administered on 03/27/19 08:40; Start 03/25/19 at 11:00 Methocarbamol (Robaxin) 750 mg PRN TID PRN PO MUSCLE SPASMS; Start 03/25/19 at 11:30 Lactobacillus Rhamnosus (Culturelle) 1 cap BID PO Last administered on 03/27/19at 20:58; Start 03/25/19 at 21:00 Temazepam (Restoril) 15 mg PRN QHS PRN PO INSOMNIA Last administered on 03/27/19at 22:51; Start 03/25/19 at 22:30 Info (FLU VACCINE SCREEN per RX) 1 each PRN 1X PRN MC SEE COMMENTS; Start 03/26/19 at 00:45; Status Cancel Influenza Virus Vaccine Quadrival (Afluria Quad 2019-20 (3yr Up) Syringe) 0.5 ml ONCE ONCE VAX IM Last administered on 03/26/19at 22:38; Start 03/26/19 at 15:00; Stop 03/26/19 at 15:01; Status DC Guaifenesin (Mucinex) 1,200 mg BID PO Last administered on 03/27/19at 20:58; Start 03/27/19 at 09:00 Guaifenesin/ Codeine Phosphate (Robitussin Ac) 5 ml PRN Q6HRS PRN PO COUGH Last administered on 03/28/19at 02:33; Start 03/27/19 at 16:30 Active Scripts Active Ferrous Sulfate 300 Mg/5 Ml Liquid 300 Mg PO BIDWMEALS 30 Days Guaifenesin Dm Syrup (Guaifenesin/Dextromethorphan) 5 Ml Syrup 10 Ml PO PRN Q6HRS PRN 30 Days Potassium Chloride 10 Meq Capsule.er 1 Cap PO DAILY Reported Xanax (Alprazolam) 0.25 Mg Tablet 0.25 Mg PO BID Protonix (Pantoprazole Sodium) 20 Mg Tablet.dr 40 Mg PO DAILY Zoloft (Sertraline Hcl) 50 Mg Tablet 1 Tab PO HS Clopidogrel (Clopidogrel Bisulfate) 75 Mg Tablet 1 Tab PO DAILY Singulair Tablet (Montelukast Sodium) 10 Mg Tablet 1 Tab PO HS Lasix (Furosemide) 20 Mg Tablet 1 Tab PO DAILY16 Symbicort 160-4.5 Mcg Inhaler (Budesonide/Formoterol Fumarate) 10.2 Gm Hfa.aer. ad 10.2 Gm IH BID Albuterol Sulfate Hfa Inhaler (Albuterol Sulfate) 8.5 Gm Hfa.aer.ad 8.5 Gm IH PRN Duoneb 0.5 Mg-3 Mg/3 Ml Soln (Ipratropium/Albuterol Sulfate) 3 Ml Ampul.neb 3 Ml IH QID Aspir 81 (Aspirin) 81 Mg Tablet.dr 81 Mg PO DAILY Vitals/I & O Vital Sign - Last 24 Hours 03/27/19 03/27/19 03/27/19 03/27/19 08:00 11:35 11:42 15:41 Temp 99.5 98.8 99.5 98.8 Pulse 74 86 Resp 20 20 B/P (MAP) 148/77 (100) 140/87 (104) Pulse Ox 97 93 94 O2 Delivery Nasal Cannula Nasal Cannula Nasal Cannula Nasal Cannula O2 Flow Rate 3.0 3.0 3.0 3.0 03/27/19 03/27/19 03/27/19 03/27/19 15:43 19:11 19:20 20:00 Temp 98.7 98.7 Pulse 94 Resp 20 B/P (MAP) 121/83 (96) Pulse Ox 96 93 O2 Delivery Nasal Cannula Nasal Cannula Nasal Cannula Nasal Cannula O2 Flow Rate 3.0 3.0 3.0 3.0 03/27/19 03/28/19 23:20 03:20 Temp 99.0 98.7 99.0 98.7 Pulse 81 71 Resp 17 17 B/P (MAP) 143/89 (107) 140/89 (106) Pulse Ox 96 96 O2 Delivery Nasal Cannula Nasal Cannula O2 Flow Rate 3.0 3.0 Intake and Output 03/27/19 03/27/19 03/28/19 15:00 23:00 07:00 Intake Total 980 ml 120 ml 650 ml Balance 980 ml 120 ml 650 ml GUZMAN GALLEGOS MD Mar 28, 2019 07:46
[2019-03-28] MEDS ORDERED: PRED20TA PO (07:53)
[2019-03-28] MEDS ORDERED: guaiFENesin/CODEINE 100mg/10mg PO (07:53)
[2019-03-28] MEDS ORDERED: LEVO500T59 PO (07:53)
[2019-03-28] MEDS: BUDESONIDE 0.5 MG/2 ML NEBU. NEB SCH (08:18)
[2019-03-28] MEDS: IPRATRPIUM/ALBUTEROL 0.5/2.5MG 3 ML NEBU. IH SCH ×2 (08:18→11:32)
[2019-03-28] MEDS: PANTOPRAZOLE 40 MG TABLET.DR. PO SCH (08:22)
[2019-03-28] MEDS: LACTOBACILLUS RHAMNOSUS GG 1 CAPSULE. PO SCH (08:22)
[2019-03-28] MEDS: ALPRAZolam 0.25 MG TABLET PO SCH (08:22)
[2019-03-28] MEDS: ASPIRIN ENTERIC COATED 81 MG TABLET.DR. PO SCH (08:22)
[2019-03-28] MEDS: CLOPIDOGREL BISULFATE 75 MG TABLET PO SCH (08:22)
[2019-03-28] MEDS: POTASSIUM CHLORIDE 10 MEQ TABLET.ER. PO SCH (08:22)
--- NOTE | 2019-03-28 08:22 | DS ---
DATE OF DISCHARGE: 03/28/2019 CHIEF COMPLAINT: Shortness of breath. HISTORY OF PRESENT ILLNESS: The patient is a 58-year-old female with chronic respiratory failure who is on continuous oxygen. She presented to the Emergency Room with the above complaint. She actually reported a history of intermittent cough and shortness of breath for the past several weeks. She had her oxygen at home and was using her usual inhalers and nebulized treatments, but her shortness of breath seemed to be getting worse. When seen in the Emergency Room, she was mildly hypoxic. Chest x-ray showed a possible infiltrate in the right upper lobe. Treatment was started and she was admitted for further care. HOSPITAL COURSE: The patient was started on Solu-Medrol and Levaquin. She was seen in consultation by Dr. Stock who is her usual remote operations producer. She was felt to be experiencing an exacerbation of her COPD in addition to the pneumonia. She had significant wheezing on chest exam at admission and this has slowly improved. The patient states that she feels much better and feels ready to return home today. Dr. Stock is in agreement with this and the patient will be discharged on oral Levaquin and a prednisone taper. She also takes codeine cough syrup as she feels this is the only cough suppressant that really works for her when her cough is troublesome as it is now. The patient complained of some right flank pain at admission. This was thought to be chest wall pain due to muscle strain from her recent coughing. An abdominal ultrasound was done, which showed some fatty infiltration in the liver, but was otherwise unremarkable. This pain has also improved and can be treated with [id number] medication. The patient has chronic anxiety and takes sertraline and p.r.n. Xanax for this. She feels she is doing well with these medications. She has a history of coronary artery disease, but this appears stable. FINAL DIAGNOSES: 1. Acute on chronic respiratory failure. 2. Acute exacerbation of chronic obstructive pulmonary disease. 3. Community-acquired pneumonia. 4. Chronic anxiety. 5. Chest wall pain. 6. History of coronary artery disease. DISCHARGE MEDICATIONS: Codeine cough syrup 5 mL p.r.n. cough, Levaquin 500 mg 1 daily for 3 days, prednisone 20 mg tablet 3 tablets daily for 2 days, then 2 tablets daily for 2 days, then 1 tablet daily for 2 days, then discontinue; albuterol inhaler, Xanax 0.25 mg b.i.d. p.r.n., aspirin 81 mg daily, Symbicort 160/4.5 one puff b.i.d., clopidogrel 75 mg daily, iron 300 mg daily, Lasix 20 mg daily, DuoNebs p.r.n., Singulair 10 mg daily, pantoprazole 40 mg daily, potassium 10 mEq daily, and Zoloft 50 mg daily. FOLLOWUP: With Dr. Gallegos as needed. Follow up with Dr. Stock as advised. The patient has already received her flu shot for this season and she is cleared to return to work tomorrow. GUZMAN GALLEGOS MD DR: JAJA/franklin JOB#: [id number] / [id number] MTDAury
[2019-03-28] MEDS: methylPREDNISolone SOD SUCC PF 125 MG/2 ML VIAL. IV SCH (08:23)
[2019-03-28] MEDS: FLUTICASONE 50MCG/NASAL SPRAY 16GM BOTTLE. NS SCH (08:23)
[2019-03-28] MEDS: FERROUS SULFATE ORAL 300 MG/5 ML SOLUTION. PO SCH (08:23)
[2019-03-28 11:00] VITALS: BP 134/83
--- NOTE | 2019-03-28 13:54 | PDOC ---
PULMONARY PROGRESS NOTES Subjective NOT MORE SOA Vitals Vital Signs Date Time Temp Pulse Resp B/P (MAP) Pulse Ox O2 Delivery O2 Flow Rate FiO2 03/28/19 11:32 95 Nasal Cannula 3.0 03/28/19 11:00 98.5 80 17 134/83 (100) 98.5 ROS: No Nausea, No Chest Pain, No Abdominal Pain, No Increase Cough General: Alert HEENT: Other Lungs: Wheezing Cardiovascular: S1, S2 Abdomen: Soft, Non-tender Neuro Exam: Alert Extremities: No Edema Skin: Warm, Dry Impression CXR 03/24: Impression: COPD. Small acute lung infiltrate within the right upper lobe. Mild cardiomegaly.Pulmonary arterial hypertension. Abdominal U/S 03/25/19:Impression: Midline structures are incompletely visualized due to bowel gas. Thereis mild coarsening of the hepatic echotexture likely due to steatosis. No other significant abnormality is demonstrated. Medications Active Scripts Medications Dose Route/Sig Max Daily Dose Days Date Category Protonix (Pantoprazole Sodium) 20 Mg Tablet.dr 40 Mg PO DAILY 01/13/19 Reported Ferrous Sulfate 300 Mg/5 Ml Liquid 300 Mg PO BIDWMEALS 30 08/29/18 Rx Guaifenesin Dm Syrup (Guaifenesin/Dextromethorphan) 5 Ml Syrup 10 Ml PO PRN Q6HRS PRN 30 05/14/18 Rx Zoloft (Sertraline Hcl) 50 Mg Tablet 1 Tab PO HS 05/10/18 Reported Clopidogrel (Clopidogrel Bisulfate) 75 Mg Tablet 1 Tab PO DAILY 02/25/18 Reported Potassium Chloride 10 Meq Capsule.er 1 Cap PO DAILY 04/26/15 Rx Singulair Tablet (Montelukast Sodium) 10 Mg Tablet 1 Tab PO HS 04/27/14 Reported Lasix (Furosemide) 20 Mg Tablet 1 Tab PO DAILY16 04/27/14 Reported Symbicort 160-4.5 Mcg Inhaler (Budesonide/Formoterol Fumarate) 10.2 Gm Hfa.aer.ad 10.2 Gm IH BID 07/28/13 Reported Albuterol Sulfate Hfa Inhaler (Albuterol Sulfate) 8.5 Gm Hfa.aer.ad 8.5 Gm IH PRN 07/28/13 Reported Duoneb 0.5 Mg-3 Mg/3 Ml Soln (Ipratropium/Albuterol Sulfate) 3 Ml Ampul.neb 3 Ml IH QID 07/28/13 Reported Aspir 81 (Aspirin) 81 Mg Tablet. 81 Mg PO DAILY 07/28/13 Reported Impression . 1. Kastg-fs-fjlmzni hypoxemic respiratory failure secondary to acute pneumonia and acute exacerbation of chronic obstructive pulmonary disease- ongoing/stable 2. Pneumonia, suspect gram-negative, possibly gram-positive- stable 3. Progressive dyspnea---improving 4. Secondary pulmonary hypertension---stable 5. Ayipr-jz-pmrxybj cor pulmonale---- improving/stable 6. Anxiety disorder. 7. Hypertension. 8. Coronary artery disease with previous coronary artery bypass grafting. 9. ANXIETY DISORDER Plan . D/W DR GALLEGOS WILL D/C HOME FOLLOW IN OFFICE GLENIS SCHWARTZ MD Mar 28, 2019 13:54
--- NOTE | 2019-03-28 14:52 | NUR ---
Pt was escorted down to main entrance via wheelchair and belongings with her own oxygen by DOMINICK Lawrence, to her own private vehicle.
== END 2019-03-28 14:49 | disposition home or self-care (01) | DRG 193 ==
LOC: ER 09:22 → 6 SOUTH 11:09
PROVIDERS: ADMIT Family Medicine; ATTEND Family Medicine
DX: J18.1 Lobar pneumonia, unspecified organism (principal); J96.21 Acute and chronic respiratory failure with hypoxia; J44.1 Chronic obstructive pulmonary disease with (acute) exacerbation; J44.0 Chronic obstructive pulmonary disease with (acute) lower respiratory infection; F41.1 Generalized anxiety disorder; I10 Essential (primary) hypertension; I27.21 Secondary pulmonary arterial hypertension; K21.9 Gastro-esophageal reflux disease without esophagitis; I27.81 Cor pulmonale (chronic); K76.0 Fatty (change of) liver, not elsewhere classified; E66.01 Morbid (severe) obesity due to excess calories; I25.10 Atherosclerotic heart disease of native coronary artery without angina pectoris; Z95.1 Presence of aortocoronary bypass graft; Z82.49 Family history of ischemic heart disease and other diseases of the circulatory system; Z68.30 Body mass index [BMI] 30.0-30.9, adult; Z99.81 Dependence on supplemental oxygen; Z90.710 Acquired absence of both cervix and uterus; Z87.891 Personal history of nicotine dependence; Z88.5 Allergy status to narcotic agent; Z88.0 Allergy status to penicillin; Z88.8 Allergy status to other drugs, medicaments and biological substances
CPT/HCPCS: 36415; 71045; 71046; 76700; 80048; 80053; 82553; 83605; 83735; 84145; 84484; 85025; 87040; 90471; 90686; 93005; 94640; 94644; 94760; 96365; 96375; J0456; J0696; J1650; J1956; J2930; J7030; J7613; J7620; J7626; 99285-25; G0378

== ENCOUNTER → 2019-06-28 | Outpatient (CLI) | payer OTHER ==
[~2019-06-28] MED LIST changes: +ALPR0.25 PO; +PRED20TA PO; +guaiFENesin/CODEINE 100mg/10mg PO
[2019-06-28 09:13] LABS: HEMATOCRIT 41.6 % (36.0-47.0); HEMOGLOBIN 13.3 g/dL (12.0-15.5); RED BLOOD COUNT 4.52 x10^6/uL (3.50-5.40); RED CELL DISTRIBUTION WIDTH 13.8 % (11.5-14.5); WHITE BLOOD COUNT 5.5 x10^3/uL (4.0-11.0)
[2019-06-28 09:36] LABS: ALBUMIN 3.8 g/dL (3.4-5.0); ALBUMIN/GLOBULIN RATIO 1.2 (1.0-1.7); CREATININE 0.8 mg/dL (0.6-1.0); GFR 88.2; TOTAL BILIRUBIN 0.4 mg/dL (0.2-1.0); TOTAL PROTEIN 6.9 g/dL (6.4-8.2)
[2019-06-28 09:39] LABS: CHOLESTEROL/HDL RATIO 2.5
[2019-06-28 23:08] LABS: HEMOGLOBIN A1C 6.2 % (4.8-5.6)
== END | disposition home or self-care (01) ==
LOC: LAB 08:06
PROVIDERS: ATTEND Family Medicine
DX: R73.09 Other abnormal glucose (principal); D50.9 Iron deficiency anemia, unspecified; E55.9 Vitamin D deficiency, unspecified; E78.5 Hyperlipidemia, unspecified
CPT/HCPCS: 36415; 80053; 80061; 82306; 83036; 84436; 84443; 85027

== ENCOUNTER 2019-07-03 10:43 | Inpatient (IN) | payer OTHER ==
[~2019-07-03] VITALS: Ht 152.4 cm; Wt 77.6 kg
[2019-07-03] MEDS ORDERED: IPRATRPIUM/ALBUTEROL 0.5/2.5MG 3 ML NEBU. NEB ONE (11:15)
[2019-07-03] MEDS ORDERED: methylPREDNISolone SOD SUCC PF 125 MG/2 ML VIAL. IV ONE (11:15)
[2019-07-03 11:22] LABS: BASO # 0.1 x10^3/uL (0.0-0.2); BASO % 1 % (0-3); EOS # 0.4 x10^3/uL (0.0-0.7); EOS % 7 % (0-3); HEMATOCRIT 40.6 % (36.0-47.0); HEMOGLOBIN 13.3 g/dL (12.0-15.5); LYMPH # 1.6 x10^3/uL (1.0-4.8); LYMPH % 26 % (24-48); MEAN CORPUSCULAR HEMOGLOBIN 30 pg (25-35); MEAN CORPUSCULAR HGB CONC 33 g/dL (31-37); MEAN CORPUSCULAR VOLUME 92 fL (79-100); MONO # 0.8 x10^3/uL (0.0-1.1); MONO % 13 % (0-9); NEUT # 3.3 x10^3/uL (1.8-7.7); NEUT % 53 % (31-73); PLATELET COUNT 220 x10^3/uL (140-400); RED BLOOD COUNT 4.42 x10^6/uL (3.50-5.40); RED CELL DISTRIBUTION WIDTH 13.5 % (11.5-14.5); WHITE BLOOD COUNT 6.3 x10^3/uL (4.0-11.0)
[2019-07-03 11:34] LABS: PROTHROMBIN TIME PATIENT 13.3 SEC (11.7-14.0)
--- NOTE | 2019-07-03 11:37 | EKG ---
[facility] [address] [place] [address] Test Date: 2019-07-03 Test Time: 11:32:30 Pat Name: EDDI QUEZADA Department: Room: Gender: F Clinical Trials Assistant: : 1960 Requested By: NICOLA BURNS Order Number: [id number] Reading MD: Measurements Intervals [place] Rate: 85 P: NV: QRS: -46 QRSD: 74 T: 19 QT: 342 QTc: 407 Interpretive Statements ATRIAL FLUTTER ABNORMAL LEFT AXIS DEVIATION R-S TRANSITION ZONE IN V LEADS DISPLACED TO THE LEFT S1,S2,S3 PATTERN LEFT ANTERIOR FASCICULAR BLOCK T ABNORMALITY IN HIGH LATERAL LEADS INFERIOR LEADS ABNORMAL ECG RI6.01 No previous ECG available for comparison
[2019-07-03 11:38] LABS: BASE EXCESS ABG 7 mmol/L (-3-3); HCO3 ABG 34 mmol/L (21-28); PO2 ABG 62 mmHg (65-108); SAT O2 ABG 92 % (92-99)
[2019-07-03 11:39] LABS: FIO2 ABG 28; PCO2 ABG 61 mmHg (35-46)
[2019-07-03 11:40] LABS: CALCIUM 8.9 mg/dL (8.5-10.1); CREATININE 0.8 mg/dL (0.6-1.0); GFR 88.2; POTASSIUM 3.8 mmol/L (3.5-5.1)
[2019-07-03 11:53] LABS: ALBUMIN 3.8 g/dL (3.4-5.0); ALBUMIN/GLOBULIN RATIO 1.2 (1.0-1.7); TOTAL BILIRUBIN 0.3 mg/dL (0.2-1.0)
--- NOTE | 2019-07-03 12:17 | PHYS DOC ---
Past Medical History Past Medical History: CAD, COPD, High Cholesterol, Hypertension, Other Additional Past Medical Histor: CHRONIC BRONCHITIS Past Surgical History: Angioplasty, Hysterectomy, Tonsillectomy, Other Additional Past Surgical Histo: HEART CATH,EXP SURG X4, laproscopy Alcohol Use: None Drug Use: None Adult General Chief Complaint Chief Complaint: SHORTNESS OF BREATH HPI HPI Patient is a 59 year old female with history of hypertension, dyslipidemia, coronary artery disease status post CABG, COPD on 2 L of oxygen who presents with complaint of shortness of breath and cough. Patient complaining of intermittent episodes of cough that sometimes is productive with yellow and green sputum for the last 2 weeks associated with constant shortness of breath that getting worse with supine position and light activity. Patient complaining of myalgia and subjective fever, sore throat and earache and denies vomiting, diarrhea, urinary symptoms, sick contact. Patient states she had chills this morning. Patient states she was seen by her primary care physician 1 week ago but no medication was given. Review of Systems Review of Systems Constitutional: Reports subjective fever and chills Eyes: Denies change in visual acuity, redness, or eye pain [] HENT: Denies nasal congestion, reports sore throat [] Respiratory: Reports cough and shortness of breath Cardiovascular: No additional information not addressed in HPI [] GI: Denies abdominal pain, nausea, vomiting, bloody stools or diarrhea [] : Denies dysuria or hematuria [ Integument: Denies rash or skin lesions [] Neurologic: Denies headache, focal weakness or sensory changes [] Endocrine: Denies polyuria or polydipsia [] All other systems were reviewed and found to be within normal limits, except as documented in this note. Current Medications Current Medications Current Medications Medications (Trade) Dose Ordered Sig/Umang Start Time Stop Time Status Last Admin Dose Admin Albuterol/ Ipratropium (Duoneb) 3 ml 1X ONCE 07/03/19 11:15 07/03/19 11:16 DC 07/03/19 11:28 3 ML Methylprednisolone Sodium Succinate (SOLU-Medrol 125MG VIAL) 125 mg 1X ONCE 07/03/19 11:15 07/03/19 11:16 DC 07/03/19 12:36 125 MG Allergies Allergies Allergies Coded Allergies Type Severity Reaction Last Updated Verified iron Allergy Severe 08/26/18 Yes Penicillins Allergy Intermediate rash 03/03/16 Yes morphine Allergy Intermediate Rash-PERCOCET OK 03/03/16 Yes benzonatate Adverse Reaction Intermediate Itching 05/14/18 Yes Physical Exam Physical Exam mildno acute distress, non-toxic appearance. [] HENT: Normocephalic, atraumatic, bilateral external ears normal, oropharynx moist, no oral exudates, nose normal. [] Eyes: PERRLA, EOMI, conjunctiva normal, no discharge. [] Neck: Normal range of motion, no tenderness, supple, no stridor. [] Cardiovascular:Heart rate regular rhythm, no murmur [] Lungs & Thorax: No respiratory distress, bilateral expiratory wheezing and decrease of air movement, Abdomen: Bowel sounds normal, soft, no tenderness, no masses, no pulsatile masses. [] Skin: Warm, dry, no erythema, no rash. [] Back: No tenderness, no CVA tenderness. [] Extremities: No tenderness, no cyanosis, no clubbing, ROM intact, no edema. [] Neurologic: Alert and oriented X 3, normal motor function, normal sensory function, no focal deficits noted. [] Psychologic: Affect normal, judgement normal, mood normal. [] Current Patient Data Vital Signs Vital Signs Date Time Temp Pulse Resp B/P (MAP) Pulse Ox O2 Delivery O2 Flow Rate FiO2 07/03/19 11:37 85 16 134/91 (105) 94 Room Air 07/03/19 11:29 2.0 07/03/19 10:58 99.2 99.2 Lab Values Laboratory Tests Test 07/03/19 11:05 07/03/19 11:06 07/03/19 11:49 O2 Saturation 92 % (92-99) Arterial Blood pH 7.37 (7.35-7.45) Arterial Blood pCO2 at Patient Temp 61 mmHg (35-46) *H Arterial Blood pO2 at Patient Temp 62 mmHg (65-108) L Arterial Blood HCO3 34 mmol/L (21-28) H Arterial Blood Base Excess 7 mmol/L (-3-3) H FiO2 28 White Blood Count 6.3 x10^3/uL (4.0-11.0) Red Blood Count 4.42 x10^6/uL (3.50-5.40) Hemoglobin 13.3 g/dL (12.0-15.5) Hematocrit 40.6 % (36.0-47.0) Mean Corpuscular Volume 92 fL (79-100) Mean Corpuscular Hemoglobin 30 pg (25-35) Mean Corpuscular Hemoglobin Concent 33 g/dL (31-37) Red Cell Distribution Width 13.5 % (11.5-14.5) Platelet Count 220 x10^3/uL (140-400) Neutrophils (%) (Auto) 53 % (31-73) Lymphocytes (%) (Auto) 26 % (24-48) Monocytes (%) (Auto) 13 % (0-9) H Eosinophils (%) (Auto) 7 % (0-3) H Basophils (%) (Auto) 1 % (0-3) Neutrophils # (Auto) 3.3 x10^3/uL (1.8-7.7) Lymphocytes # (Auto) 1.6 x10^3/uL (1.0-4.8) Monocytes # (Auto) 0.8 x10^3/uL (0.0-1.1) Eosinophils # (Auto) 0.4 x10^3/uL (0.0-0.7) Basophils # (Auto) 0.1 x10^3/uL (0.0-0.2) Prothrombin Time 13.3 SEC (11.7-14.0) Prothrombin Time INR 1.0 (0.8-1.1) Sodium Level 143 mmol/L (136-145) Potassium Level 3.8 mmol/L (3.5-5.1) Chloride Level 103 mmol/L (98-107) Carbon Dioxide Level 34 mmol/L (21-32) H Anion Gap 6 (6-14) Blood Urea Nitrogen 11 mg/dL (7-20) Creatinine 0.8 mg/dL (0.6-1.0) Estimated GFR (Cockcroft-Gault) 88.2 BUN/Creatinine Ratio 14 (6-20) Glucose Level 103 mg/dL (70-99) H Lactic Acid Level 0.8 mmol/L (0.4-2.0) Calcium Level 8.9 mg/dL (8.5-10.1) Magnesium Level 2.0 mg/dL (1.8-2.4) Total Bilirubin 0.3 mg/dL (0.2-1.0) Aspartate Amino Transferase (AST) 24 U/L (15-37) Alanine Aminotransferase (ALT) 13 U/L (14-59) L Alkaline Phosphatase 65 U/L (46-116) Creatine Kinase 760 U/L (26-192) H Troponin I Quantitative < 0.017 ng/mL (0.000-0.055) VT-Olu-I-Type Natriuretic Peptide 144 pg/mL (0-124) H Total Protein 7.0 g/dL (6.4-8.2) Albumin 3.8 g/dL (3.4-5.0) Albumin/Globulin Ratio 1.2 (1.0-1.7) Lipase 180 U/L (73-393) Influenza Type A Antigen Negative (NEGATIVE) Influenza Type B Antigen Negative (NEGATIVE) Laboratory Tests 07/03/19 11:06 Laboratory Tests 07/03/19 11:06 EKG EKG EKG interpreted by me. EKG at 1132 showed normal sinus rhythm with multiple artifact at rate of 85, left axis deviation, left anterior fascicular block, T- wave abnormality in lateral leads, no acute ST and T-wave elevation. Radiology/Procedures Radiology/Procedures [][facility] [address] [place] [address] IMAGING REPORT Signed PATIENT: EDDI QUEZADA CCOUNT: [id number] : 1960 LOCATION: ER AGE: 59 SEX: F EXAM STATUS: REG ER ORD. PHYSICIAN: NICOLA BURNS MD REASON: shortness of breath PROCEDURE: PORTABLE CHEST 1V PORTABLE CHEST 1V 07/03/2019 11:30 AM INDICATION: Shortness of breath COMPARISON: 03/27/2019 TECHNIQUE: Portable frontal view of the chest is provided. FINDINGS: The cardiomediastinal silhouette is similar in appearance. Stable prominence of the right hilum which most favors prominent pulmonary vasculature. Lungs are otherwise clear. There are no significant pleural effusions. There is no pulmonary vascular congestion. No pneumothorax. IMPRESSION: There is no acute cardiopulmonary process. Electronically signed by: Liang Saha MD (07/03/2019 12:19 PM) [id number] DICTATED and SIGNED BY: LIANG SAHA MD DATE: 07/03/19 1219 Course & Med Decision Making Course & Med Decision Making Pertinent Labs and Imaging studies reviewed. (See chart for details) Patient requiring admission for further evaluation and treatment. Discussed with Dr. Grajeda who is in agreement with admission. Discussed findings and plan with patient and family, who acknowledge understanding and agreement. Dragon Disclaimer Dragon Disclaimer This electronic medical record was generated, in whole or in part, using a voice recognition dictation system. Departure Departure Impression: Primary Impression: COPD exacerbation Disposition: ADMITTED INPATIENT (1212) Admitting Physician: MAURISIO (Dr. Grajeda accepted admission at 1211) Condition: IMPROVED Referrals: GUZMAN GALLEGOS MD (PCP) NICOLA BURNS MD Jul 03, 2019 12:17
[2019-07-03 12:19] LABS: INFLUENZA A PATIENT NEGATIVE (NEGATIVE); INFLUENZA B PATIENT NEGATIVE (NEGATIVE)
--- NOTE | 2019-07-03 12:21 | RAD ---
PORTABLE CHEST 1V 07/03/2019 11:30 AM INDICATION: Shortness of breath COMPARISON: 03/27/2019 TECHNIQUE: Portable frontal view of the chest is provided. FINDINGS: The cardiomediastinal silhouette is similar in appearance. Stable prominence of the right hilum which most favors prominent pulmonary vasculature. Lungs are otherwise clear. There are no significant pleural effusions. There is no pulmonary vascular congestion. No pneumothorax. IMPRESSION: There is no acute cardiopulmonary process. Electronically signed by: Adrianne Goodman MD (07/03/2019 12:19 PM) [id number]
[2019-07-03] MEDS ORDERED: cefTRIAXone IV Push 1 GM VIAL. IVP ONE (12:30)
[2019-07-03] MEDS: IV NORMAL SALINE 1000ML BAG 1,000 ML IV SCH ×2 (12:35→23:55)
--- NOTE | 2019-07-03 13:19 | PDOC1 ---
History and Physical Date of Admission Date of Admission DATE: 07/03/19 TIME: 13:18 Identification/Chief Complaint Chief Complaint SEEN IN er 59 year old female with history of hypertension, dyslipidemia, coronary artery disease status post CABG, COPD on 2 L of oxygen who presents with complaint of shortness of breath and cough. intermittent episodes of cough that sometimes is productive with yellow and green sputum for the last 2 weeks associated with constant shortness of breath that getting worse with supine position and light activity. complaining of myalgia and subjective fever, sore throat and earache and denies vomiting, diarrhea, urinary symptoms, some left and right chest discomfort, RUQ PAIN AFTER MEALS NOTED NEW Past Medical History Past Medical History Past Medical History Past Medical History Past Medical History: CAD, COPD, High Cholesterol, Hypertension, Other Additional Past Medical Histor: CHRONIC BRONCHITIS Past Surgical History: Angioplasty, Hysterectomy, Tonsillectomy, Other Additional Past Surgical Histo: HEART CATH,EXP SURG X4, laproscopy Alcohol Use: None Drug Use: None FHX OBESITY Cardiovascular: CAD, HTN, Hyperlipidemia Pulmonary: Bronchitis, COPD GI: GERD Psych: Depression Past Surgical History Past Surgical History: Hysterectomy, Other Family History Family History: Chronic Bronchitis, Hypertension Social History Smoke: Quit ALCOHOL: none Drugs: None Current Medications Current Medications Current Medications Albuterol/ Ipratropium (Duoneb) 3 ml 1X ONCE NEB Last administered on 07/03/19at 11:28; Start 07/03/19 at 11:15; Stop 07/03/19 at 11:16; Status DC Methylprednisolone Sodium Succinate (SOLU-Medrol 125MG VIAL) 125 mg 1X ONCE IV Last administered on 07/03/19at 12:36; Start 07/03/19 at 11:15; Stop 07/03/19 at 11:16; Status DC Sodium Chloride 1,000 ml @ 100 mls/hr Q10H IV Last administered on 07/03/19at 12:35; Start 07/03/19 at 12:18; Stop 07/04/19 at 12:17 Ceftriaxone Sodium (Rocephin) 1 gm 1X ONCE IVP Last administered on 07/03/19at 12:35; Start 07/03/19 at 12:30; Stop 07/03/19 at 12:31; Status DC Active Scripts Active Prednisone 20 Mg Tablet 1 Tab PO DAILY 6 Days take three pills daily for 2 days then two pills daily for 2 days then one pill daily for 2 days. Levaquin (Levofloxacin) 500 Mg Tablet 1 Tab PO DAILY 3 Days [guaiFENesin/CODEINE 100mg/10mg] 5 ML Liquid 5 Ml PO PRN Q6HRS PRN Ferrous Sulfate 300 Mg/5 Ml Liquid 300 Mg PO BIDWMEALS 30 Days Potassium Chloride 10 Meq Capsule.er 1 Cap PO DAILY Reported Xanax (Alprazolam) 0.25 Mg Tablet 0.25 Mg PO BID Protonix (Pantoprazole Sodium) 20 Mg Tablet. 40 Mg PO DAILY Zoloft (Sertraline Hcl) 50 Mg Tablet 1 Tab PO HS Clopidogrel (Clopidogrel Bisulfate) 75 Mg Tablet 1 Tab PO DAILY Singulair Tablet (Montelukast Sodium) 10 Mg Tablet 1 Tab PO HS Lasix (Furosemide) 20 Mg Tablet 1 Tab PO DAILY16 Symbicort 160-4.5 Mcg Inhaler (Budesonide/Formoterol Fumarate) 10.2 Gm Hfa.aer.ad 10.2 Gm IH BID Albuterol Sulfate Hfa Inhaler (Albuterol Sulfate) 8.5 Gm Hfa.aer.ad 8.5 Gm IH PRN Duoneb 0.5 Mg-3 Mg/3 Ml Soln (Ipratropium/Albuterol Sulfate) 3 Ml Ampul.neb 3 Ml IH QID Aspir 81 (Aspirin) 81 Mg Tablet. 81 Mg PO DAILY Allergies Allergies: Coded Allergies: iron (Verified Allergy, Severe, 08/26/18) Itching, swelling of hands with IV infusion; able to tolerate PO Penicillins (Verified Allergy, Intermediate, rash, 03/03/16) morphine (Verified Allergy, Intermediate, Rash-PERCOCET OK, 03/03/16) benzonatate (Verified Adverse Reaction, Intermediate, Itching, 05/14/18) ROS Review of System Review of Systems Review of Systems Constitutional: Reports subjective fever and chills Eyes: Denies change in visual acuity, redness, or eye pain [] HENT: Denies nasal congestion, reports sore throat [] Respiratory: Reports cough and shortness of breath Cardiovascular: No additional information not addressed in HPI [] GI: Denies abdominal pain, nausea, vomiting, bloody stools or diarrhea [] : Denies dysuria or hematuria [ Integument: Denies rash or skin lesions [] Neurologic: Denies headache, focal weakness or sensory changes [] Endocrine: Denies polyuria or polydipsia [] 14 PT systems were reviewed and found to be within normal limits, except as documented PSYCHOLOGICAL ROS: YES: Anxiety; No: Behavioral Disorder, Concentration difficultie, Decreased libido, Depression, Disorientation, Hallucinations, Hostility, Irritablity, Memory difficulties, Mood Swings, Obsessive thoughts, Physical abuse, Sexual abuse, Sleep disturbances, Suicidal ideation, Other Respiratory: YES: Cough, Shortness of breath Musculoskeletal: Yes Joint Stiffness Physical Exam Physical Exam Physical Exam Physical Exam mildno acute distress, non-toxic appearance. [] HENT: Normocephalic, atraumatic, bilateral external ears normal, oropharynx moist, no oral exudates, nose normal. [] Eyes: PERRLA, EOMI, conjunctiva normal, no discharge. [] Neck: Normal range of motion, no tenderness, supple, no stridor. [] Cardiovascular:Heart rate regular rhythm, no murmur [] Lungs & Thorax: No respiratory distress, bilateral expiratory wheezing and decrease of air movement, Abdomen: Bowel sounds normal, soft, no tenderness, no masses, no pulsatile masses. [] Skin: Warm, dry, no erythema, no rash. [] Back: No tenderness, no CVA tenderness. [] Extremities: No tenderness, no cyanosis, no clubbing, ROM intact, no edema. [] Neurologic: Alert and oriented X 3, normal motor function, normal sensory function, no focal deficits noted. [] Psychologic: Affect normal, judgment normal, mood normal. [] General: Alert, Oriented X3, Cooperative, No acute distress HEENT: Atraumatic, EOMI, Mucous membr. moist/pink Heart: RRR Breasts: Not examined Abdomen: Normal bowel sounds, Soft, Other (MILD RUQ TENDERNESS, NO REBOUND) Rectal Exam: not examined PELVIC: Examination not indicated Extremities: No cyanosis Neuro: Normal speech, Cranial nerves 3-12 NL Psych/Mental Status: Mental status NL, Mood NL Vitals Vitals Vital Signs Date Time Temp Pulse Resp B/P (MAP) Pulse Ox O2 Delivery O2 Flow Rate FiO2 07/03/19 11:29 Nasal Cannula 2.0 07/03/19 10:58 99.2 104 18 157/93 (114) 91 99.2 Labs Labs Laboratory Tests Test 07/03/19 11:05 07/03/19 11:06 07/03/19 11:49 O2 Saturation 92 % (92-99) Arterial Blood pH 7.37 (7.35-7.45) Arterial Blood pCO2 at Patient Temp 61 mmHg (35-46) Arterial Blood pO2 at Patient Temp 62 mmHg (65-108) Arterial Blood HCO3 34 mmol/L (21-28) Arterial Blood Base Excess 7 mmol/L (-3-3) FiO2 28 White Blood Count 6.3 x10^3/uL (4.0-11.0) Red Blood Count 4.42 x10^6/uL (3.50-5.40) Hemoglobin 13.3 g/dL (12.0-15.5) Hematocrit 40.6 % (36.0-47.0) Mean Corpuscular Volume 92 fL (79-100) Mean Corpuscular Hemoglobin 30 pg (25-35) Mean Corpuscular Hemoglobin Concent 33 g/dL (31-37) Red Cell Distribution Width 13.5 % (11.5-14.5) Platelet Count 220 x10^3/uL (140-400) Neutrophils (%) (Auto) 53 % (31-73) Lymphocytes (%) (Auto) 26 % (24-48) Monocytes (%) (Auto) 13 % (0-9) Eosinophils (%) (Auto) 7 % (0-3) Basophils (%) (Auto) 1 % (0-3) Neutrophils # (Auto) 3.3 x10^3/uL (1.8-7.7) Lymphocytes # (Auto) 1.6 x10^3/uL (1.0-4.8) Monocytes # (Auto) 0.8 x10^3/uL (0.0-1.1) Eosinophils # (Auto) 0.4 x10^3/uL (0.0-0.7) Basophils # (Auto) 0.1 x10^3/uL (0.0-0.2) Prothrombin Time 13.3 SEC (11.7-14.0) Prothromb Time International Ratio 1.0 (0.8-1.1) Sodium Level 143 mmol/L (136-145) Potassium Level 3.8 mmol/L (3.5-5.1) Chloride Level 103 mmol/L (98-107) Carbon Dioxide Level 34 mmol/L (21-32) Anion Gap 6 (6-14) Blood Urea Nitrogen 11 mg/dL (7-20) Creatinine 0.8 mg/dL (0.6-1.0) Estimated GFR (Cockcroft-Gault) 88.2 BUN/Creatinine Ratio 14 (6-20) Glucose Level 103 mg/dL (70-99) Lactic Acid Level 0.8 mmol/L (0.4-2.0) Calcium Level 8.9 mg/dL (8.5-10.1) Magnesium Level 2.0 mg/dL (1.8-2.4) Total Bilirubin 0.3 mg/dL (0.2-1.0) Aspartate Amino Transf (AST/SGOT) 24 U/L (15-37) Alanine Aminotransferase (ALT/SGPT) 13 U/L (14-59) Alkaline Phosphatase 65 U/L (46-116) Creatine Kinase 760 U/L (26-192) Troponin I Quantitative < 0.017 ng/mL (0.000-0.055) ZN-Vav-H-Type Natriuretic Peptide 144 pg/mL (0-124) Total Protein 7.0 g/dL (6.4-8.2) Albumin 3.8 g/dL (3.4-5.0) Albumin/Globulin Ratio 1.2 (1.0-1.7) Lipase 180 U/L (73-393) Influenza Type A Antigen Negative (NEGATIVE) Influenza Type B Antigen Negative (NEGATIVE) Laboratory Tests Test 07/03/19 11:05 07/03/19 11:06 07/03/19 11:49 O2 Saturation 92 % (92-99) Arterial Blood pH 7.37 (7.35-7.45) Arterial Blood pCO2 at Patient Temp 61 mmHg (35-46) Arterial Blood pO2 at Patient Temp 62 mmHg (65-108) Arterial Blood HCO3 34 mmol/L (21-28) Arterial Blood Base Excess 7 mmol/L (-3-3) FiO2 28 White Blood Count 6.3 x10^3/uL (4.0-11.0) Red Blood Count 4.42 x10^6/uL (3.50-5.40) Hemoglobin 13.3 g/dL (12.0-15.5) Hematocrit 40.6 % (36.0-47.0) Mean Corpuscular Volume 92 fL (79-100) Mean Corpuscular Hemoglobin 30 pg (25-35) Mean Corpuscular Hemoglobin Concent 33 g/dL (31-37) Red Cell Distribution Width 13.5 % (11.5-14.5) Platelet Count 220 x10^3/uL (140-400) Neutrophils (%) (Auto) 53 % (31-73) Lymphocytes (%) (Auto) 26 % (24-48) Monocytes (%) (Auto) 13 % (0-9) Eosinophils (%) (Auto) 7 % (0-3) Basophils (%) (Auto) 1 % (0-3) Neutrophils # (Auto) 3.3 x10^3/uL (1.8-7.7) Lymphocytes # (Auto) 1.6 x10^3/uL (1.0-4.8) Monocytes # (Auto) 0.8 x10^3/uL (0.0-1.1) Eosinophils # (Auto) 0.4 x10^3/uL (0.0-0.7) Basophils # (Auto) 0.1 x10^3/uL (0.0-0.2) Prothrombin Time 13.3 SEC (11.7-14.0) Prothromb Time International Ratio 1.0 (0.8-1.1) Sodium Level 143 mmol/L (136-145) Potassium Level 3.8 mmol/L (3.5-5.1) Chloride Level 103 mmol/L (98-107) Carbon Dioxide Level 34 mmol/L (21-32) Anion Gap 6 (6-14) Blood Urea Nitrogen 11 mg/dL (7-20) Creatinine 0.8 mg/dL (0.6-1.0) Estimated GFR (Cockcroft-Gault) 88.2 BUN/Creatinine Ratio 14 (6-20) Glucose Level 103 mg/dL (70-99) Lactic Acid Level 0.8 mmol/L (0.4-2.0) Calcium Level 8.9 mg/dL (8.5-10.1) Magnesium Level 2.0 mg/dL (1.8-2.4) Total Bilirubin 0.3 mg/dL (0.2-1.0) Aspartate Amino Transf (AST/SGOT) 24 U/L (15-37) Alanine Aminotransferase (ALT/SGPT) 13 U/L (14-59) Alkaline Phosphatase 65 U/L (46-116) Creatine Kinase 760 U/L (26-192) Troponin I Quantitative < 0.017 ng/mL (0.000-0.055) JY-Ydr-N-Type Natriuretic Peptide 144 pg/mL (0-124) Total Protein 7.0 g/dL (6.4-8.2) Albumin 3.8 g/dL (3.4-5.0) Albumin/Globulin Ratio 1.2 (1.0-1.7) Lipase 180 U/L (73-393) Influenza Type A Antigen Negative (NEGATIVE) Influenza Type B Antigen Negative (NEGATIVE) Images Images PORTABLE CHEST 1V 07/03/2019 11:30 AM INDICATION: Shortness of breath COMPARISON: 03/27/2019 TECHNIQUE: Portable frontal view of the chest is provided. FINDINGS: The cardiomediastinal silhouette is similar in appearance. Stable prominence of the right hilum which most favors prominent pulmonary vasculature. Lungs are otherwise clear. There are no significant pleural effusions. There is no pulmonary vascular congestion. No pneumothorax. IMPRESSION: There is no acute cardiopulmonary process. Electronically signed by: Liang Saha MD (07/03/2019 12:19 PM) [facility] DICTATED and SIGNED BY: LIANG SAHA MD HISTORY The patient is a 57 year-old female with a history of : chronic lung disease, tobacco history() , hypertension, dyslipidemia. INDICATION The indication(s) include : unstable angina , chest pain, dyspnea. CASE TECHNIQUE The patient was brought electively into the cardiac catheterization lab. A timeout was performed confirming the patient's name, date of , procedure, and site of procedure. All necessary parties were wearing the appropriate personal protective equipment and radiation monitoring devices. After explaining the risks and benefits of the procedure, informed consent was obtained.(See nursing notes for medications administered). The right groin was sterilely prepped and draped. The right femoral groin was infiltrated with 2% Lidocaine subcutaneous anesthesia. During this case, Fluoroscopy and low osmolar contrast were used for imaging. A sheath was inserted into the right femoral artery without difficulty. Coronary angiography was performed using coronary diagnostic catheters. The left coronary system was accessed and visualized with a Diagnostic catheter. The right coronary system was accessed and visualized with a Diagnostic catheter. The left ventricle was accessed and visualized with a Diagnostic catheter. Left ventricular/Aortic Valve gradient assessed on pullback. Left ventriculogram was performed in NI projection. A Right Heart Catheterization was performed with a 7.5 Fr. Aquilla-Gretchen catheter and pressure were recorded. Coronary Angiography The patient's coronary anatomy is right dominant. The left main coronary artery is a large size vessel free of disease. The left main bifurcates to the left anterior descending and circumflex. The left anterior descending artery is a large size vessel with diffuse calcification noted throughout this vessel and without significant stenosis. The first diagonal branch is a medium size vessel with diffuse calcification noted throughout this vessel and without significant stenosis. The second diagonal branch is a small size vessel with diffuse calcification noted throughout this vessel and without significant stenosis. The third diagonal branch is a small size vessel with intimal irregularities and without significant stenosis. The circumflex artery is a medium size vessel with moderate diffused disease. There is a 50% stenosis in the mid segment. The first obtuse marginal branch is a small size vessel with mild-moderate diffused disease. There is a 55% stenosis in the proximal segment. The second obtuse marginal branch is a small size vessel with mild-moderate diffused disease. The third obtuse marginal branch is a small size vessel with mild-moderate diffused disease. The right coronary artery is a large size vessel with mild-moderate diffused disease. There is a 90% stenosis in the mid segment. The right posterior descending artery is a medium size vessel with mild diffused disease. The right posterolateral branch is a small size vessel with mild diffused disease. Left Ventriculography The left ventricle is normal in size with normal contractility. The left ventricular ejection fraction is estimated to be 60%. The left ventricular end diastolic pressure is 28 mmHg. There was no gradient across the aortic valve upon pullback. There may be a distal fistula from the septals draining into the LV Ao pressure: 184/101 LV pressure: 188/19 Right Heart Cath Findings The Right Atrial Pressure is 10 mmHg. The Right Ventricular Pressure is 52/7 mmHg. The Pulmonary Artery Pressure is 51/28 mmHg. The Pulmonary Catheter Wedge Pressure is 23 mmHg. PCI Technique Lesion Anticoagulation was achieved with Heparin. Patient was preloaded with Plavix. Percutaneous coronary intervention was performed on the mid right coronary artery. The lesion stenosis prior to intervention was 90% with ALFREDO flow. A Guide Catheter was used to engage the RCA ostium. STENT DEPLOYMENT A drug-eluting stent 4.0 X 15 mm was inserted and inflated up to 12atm for 20seconds. multiple inflations were done to high pressure, the balloon was removed and views were done that showed no significant residual disease and excellent distal flow. No dissection was seen. Conclusion Pt with pulmonary HTN and CAD. Succsesfull stenting of the Mid-RCA done with a drug eluting stent. The pt tolerated the procedure well. The view of the femoral artery showed a small caliber vessel therefore the groin lines were sutured in place to be pulled later with manual pressure when the ACT is under 200. Recommendations Daily ASA with Plavix for at least one year Signed by : Mihir Ceja MD Electronically Approved : 02/23/2018 11:59:52 ABDOMEN COMPLETE History: Right flank pain Comparison: None. Findings: Multiple sonographic images of the abdomen are submitted. Pancreas is incompletely visualized due to bowel gas, no obvious abnormality demonstrated in this region. There is segmental visualization of the inferior vena cava. Abdominal aortic caliber is within normal limits up to 2.3 cm, distally obscured by bowel gas. There is mild coarsening of the hepatic echotexture. Right lobe of the liver measured about 13 cm longitudinal. Right kidney measured 10.8 x 4.2 x 6.5 cm, no hydronephrosis. Gallbladder is present without intraluminal abnormality, wall thickening, pericholecystic fluid. Common bile duct is within normal limits about 0.5 cm. Spleen is not well-visualized due to bowel gas. Left kidney measured 10.5 x 5.1 x 4.9 cm, no hydronephrosis. Impression: 1. Midline structures are incompletely visualized due to bowel gas. There is mild coarsening of the hepatic echotexture likely due to steatosis. No other significant abnormality is demonstrated. Electronically signed by: Wayne Murrell MD (03/26/2019 8:20 AM) [facility] DICTATED and SIGNED BY: WAYNE MURRELL MD DATE: 03/26/19819 PORTABLE CHEST 1V 07/03/2019 11:30 AM INDICATION: Shortness of breath COMPARISON: 03/27/2019 TECHNIQUE: Portable frontal view of the chest is provided. FINDINGS: The cardiomediastinal silhouette is similar in appearance. Stable prominence of the right hilum which most favors prominent pulmonary vasculature. Lungs are otherwise clear. There are no significant pleural effusions. There is no pulmonary vascular congestion. No pneumothorax. IMPRESSION: There is no acute cardiopulmonary process. Electronically signed by: Liang Saha MD (07/03/2019 12:19 PM) [facility] DICTATED and SIGNED BY: LIANG SAAH MD DATE: 07/03/19 1219 VTE Prophylaxis Ordered VTE Prophylaxis Devices: Yes VTE Pharmacological Prophylaxi: Yes Assessment/Plan Assessment/Plan Impression: COPD exacerbation, ACUTE Acute hypoxic resp failure ACUTE HYPERCAPNIC RESP FAILURE atypical chest pain HX CAD//Succsesfull stenting of the Mid-RCA done with a drug eluting stent. 03/01 morbid obesity REMOTE TOBACCO ABUSE ADMITTED CONSULT PULM CONSULT CARDIOLOGY TELE BED SERIAL TROPONIN I duonebs qid dvt prophylaxis CORWIN FLOREZ MD Jul 03, 2019 13:19
[2019-07-03] MEDS ORDERED: ONDANSETRON PF 4 MG/2 ML VIAL. IV PRN (15:00)
[2019-07-03] MEDS ORDERED: ACETAMINOPHEN 325 MG TABLET. PO PRN (15:00)
[2019-07-03] MEDS ORDERED: MAG HYDROX/ALUMINUM HYD/SIMETH 30 ML ORAL.SUSP PO PRN (15:00)
[2019-07-03] MEDS ORDERED: 0.9 % SODIUM CHLORIDE 10 ML DISP.SYRIN. IV PRN (15:00)
[2019-07-03] MEDS ORDERED: cloNIDine HCL 0.1 MG TABLET PO PRN (15:00)
[2019-07-03 15:30] VITALS: BP 139/92
[2019-07-03] MEDS ORDERED: IPRATRPIUM/ALBUTEROL 0.5/2.5MG 3 ML NEBU. IH SCH (16:00)
[2019-07-03] MEDS: IPRATRPIUM/ALBUTEROL 0.5/2.5MG 3 ML NEBU. NEB SCH ×3 (16:19→23:46)
[2019-07-03] MEDS: FUROSEMIDE 20 MG TABLET PO SCH (17:03)
[2019-07-03] MEDS: AZITHROMYCIN 500 MG in IV NORMAL SALINE 250ML 250 ML IV SCH (17:04)
[2019-07-03] MEDS: FERROUS SULFATE ORAL 300 MG/5 ML SOLUTION. PO SCH (17:05)
[2019-07-03] MEDS: guaiFENesin ORAL 200 MG/10 ML LIQUID. PO PRN ×2 (18:07→22:01)
[2019-07-03 19:35] VITALS: BP 142/86
[2019-07-03] MEDS: BUDESONIDE 0.5 MG/2 ML NEBU. NEB SCH (20:21)
[2019-07-03] MEDS: MONTELUKAST SODIUM 10 MG TABLET. PO SCH (21:01)
[2019-07-03] MEDS: ALPRAZolam 0.25 MG TABLET PO SCH (21:01)
[2019-07-03] MEDS: SERTRALINE 50 MG TABLET. PO SCH (21:02)
--- NOTE | 2019-07-03 21:49 | RAD ---
Exam: Ultrasound abdomen complete Indication: Abdominal Technique: Real-time grayscale and color Doppler images of the abdomen were obtained by the department hse advisor. Comparisons: 02/21/2019 FINDINGS: Liver demonstrates homogenous echotexture. Hepatopedal flow is noted within the portal vein. Gallbladder has a normal appearance without gallstones. Common bile duct measures 4 mm in diameter. Right kidney measures 10.3 cm in length. No hydronephrosis. Left kidney measures 10.2 cm in length. No hydronephrosis. Spleen is not well seen. Pancreas is not well visualized. Visualized portions of the aorta and IVC are unremarkable. IMPRESSION: 1. Normal sonographic appearance of the gallbladder. No evidence for acute cholecystitis. 2. Normal sonographic appearance of the liver 3. No hydronephrosis. 4. Evaluation of the spleen and pancreas are limited secondary to overlying bowel gas. Electronically signed by: Jesse Walton MD (07/03/2019 9:46 PM) [facility]
[2019-07-03 23:57] VITALS: BP 134/68
[2019-07-04] MEDS: guaiFENesin/CODEINE 100mg/10mg 5 ML LIQUID PO PRN ×2 (01:50→22:53)
[2019-07-04] MEDS: IPRATRPIUM/ALBUTEROL 0.5/2.5MG 3 ML NEBU. NEB SCH ×6 (02:11→23:10)
[2019-07-04 03:45] VITALS: BP 117/72
[2019-07-04 07:54] VITALS: BP 142/85
[2019-07-04] MEDS: BUDESONIDE 0.5 MG/2 ML NEBU. NEB SCH ×2 (07:57→21:09)
[2019-07-04] MEDS: ASPIRIN ENTERIC COATED 81 MG TABLET.DR. PO SCH (08:15)
[2019-07-04] MEDS: CLOPIDOGREL BISULFATE 75 MG TABLET PO SCH (08:15)
[2019-07-04] MEDS: PANTOPRAZOLE 40 MG TABLET.DR. PO SCH (08:15)
[2019-07-04] MEDS: AZITHROMYCIN 500 MG in IV NORMAL SALINE 250ML 250 ML IV SCH (08:16)
[2019-07-04] MEDS: cefTRIAXone IV Push 1 GM VIAL. IVP SCH (08:16)
[2019-07-04] MEDS: IV NORMAL SALINE 1000ML BAG 1,000 ML IV SCH (08:17)
--- NOTE | 2019-07-04 08:37 | EKG ---
[facility] [address] [place] [address] Test Date: 2019-07-04 Test Time: 08:31:52 Pat Name: EDDI QUEZADA Department: Room: 6 Gender: F Library Director: ANAM : 1960 Requested By: AVNI ALLEN Order Number: [id number] Reading MD: Measurements Intervals [place] Rate: 79 P: 90 SC: 150 QRS: -30 QRSD: 78 T: -7 QT: 384 QTc: 441 Interpretive Statements SINUS RHYTHM ABNORMAL LEFT AXIS DEVIATION LEFT ANTERIOR FASCICULAR BLOCK ABNORMAL ECG RI6.02 Compared to ECG 03/24/2019 09:38:24 Left anterior fascicular block now present Sinus tachycardia no longer present
--- NOTE | 2019-07-04 08:56 | PDOC2 ---
AVNI ALLEN POWER HAMMER OPERATOR 07/04/19 0856: CARDIAC CONSULT DATE OF CONSULT Date of Consult DATE: 07/04/19 TIME: 08:45 REASON FOR CONSULT Reason for Consult: Atypical Chest pain REFERRING PHYSICIAN Referring Physician: Fullbright SOURCE Source: Chart review, Patient HISTORY OF PRESENT ILLNESS HISTORY OF PRESENT ILLNESS This is a pleasant 59 yo female admitted for complains of shortness of breath. Reports that in the last 2 weeks she has been coughing spells and has developed yellow and sometimes greenish sputum. She has marti having sneezing and nasal congestion. Denies any fever. Her respiratory symptoms got bad enough that she increased her O2 supplement. In the last few days she has been having chest discomfort as well and described it as cramps. No nausea or vomiting but does get HUTCHISON from time to time after significant coughing bouts. She has COPD and does not smoke anymore for a while but exposed significantly to people that smoke tobacco. Denies any palpitations or any recent falls or injury. She does have reflux issues and takes pepcid for it. She is compliant with her medications. Denies any SHANEL. PAST MEDICAL HISTORY Cardiovascular: CAD, CHF (cardiomyopathy), HTN, Hyperlipidemia, Pulmonary hypertension, Other (PAD) Pulmonary: Asthma, COPD, Pneumonia GI: Constipation, GERD Hepatobiliary: No pertinent hx Psych: Anxiety Musculoskeletal: Osteoarthritis Rheumatologic: No pertinent hx Infectious disease: No pertinent hx ENT: Allergic Rhinitis Renal/: UTI Endocrine: No pertinent hx Dermatology: No pertinent hx PAST SURGICAL HISTORY Past Surgical History: Hysterectomy, Other (PCI/MARLA to RCA) FAMILY HISTORY Family History: Hypertension SOCIAL HISTORY Smoke: Quit ALCOHOL: none Drugs: None Lives: Alone CURRENT MEDICATIONS CURRENT MEDICATIONS Current Medications Medications (Trade) Dose Ordered Sig/Umang Route PRN Reason Start Time Stop Time Status Last Admin Dose Admin Albuterol/ Ipratropium (Duoneb) 3 ml 1X ONCE NEB 07/03/19 11:15 07/03/19 11:16 DC 07/03/19 11:28 Methylprednisolone Sodium Succinate (SOLU-Medrol 125MG VIAL) 125 mg 1X ONCE IV 07/03/19 11:15 07/03/19 11:16 DC 07/03/19 12:36 Sodium Chloride 1,000 ml @ 100 mls/hr Q10H IV 07/03/19 12:18 07/04/19 12:17 07/04/19 08:17 Ceftriaxone Sodium (Rocephin) 1 gm 1X ONCE IVP 07/03/19 12:30 07/03/19 12:31 DC 07/03/19 12:35 Alprazolam (Xanax) 0.25 mg BID PO 07/03/19 21:00 07/03/19 21:01 Aspirin (Ecotrin) 81 mg DAILYWBKFT PO 07/04/19 08:00 07/04/19 08:15 Clopidogrel Bisulfate (Plavix) 75 mg DAILYWBKFT PO 07/04/19 08:00 07/04/19 08:15 Ferrous Sulfate (Iron Oral Solution) 300 mg BIDWMEALS PO 07/03/19 17:00 07/03/19 17:05 Furosemide (Lasix) 20 mg DAILY16 PO 07/03/19 16:00 07/03/19 17:03 Montelukast Sodium (Singulair) 10 mg HS PO 07/03/19 21:00 07/03/19 21:01 Sertraline HCl (Zoloft) 50 mg HS PO 07/03/19 21:00 07/03/19 21:02 Budesonide (Pulmicort) 0.5 mg RTBID NEB 07/03/19 20:00 07/04/19 07:57 Pantoprazole Sodium (Protonix) 40 mg DAILYAC PO 07/04/19 07:30 07/04/19 08:15 Guaifenesin/ Codeine Phosphate (Robitussin Ac) 5 ml PRN Q6HRS PRN PO COUGH 07/03/19 15:15 07/04/19 01:50 Albuterol/ Ipratropium (Duoneb) 3 ml Q4H NEB 07/03/19 15:00 07/04/19 07:56 Guaifenesin (Robitussin) 200 mg PRN Q4HRS PRN PO COUGH, 1ST CHOICE 07/03/19 15:00 07/03/19 22:01 Azithromycin 500 mg/Sodium Chloride 250 ml @ 250 mls/hr DAILY IV 07/03/19 16:00 07/04/19 08:16 Ceftriaxone Sodium (Rocephin) 1 gm DAILY IVP 07/04/19 09:00 07/04/19 08:16 ALLERGIES ALLERGIES: Coded Allergies: iron (Verified Allergy, Severe, 08/26/18) Itching, swelling of hands with IV infusion; able to tolerate PO Penicillins (Verified Allergy, Intermediate, rash, 03/03/16) morphine (Verified Allergy, Intermediate, Rash-PERCOCET OK, 03/03/16) benzonatate (Verified Adverse Reaction, Intermediate, Itching, 05/14/18) ROS Review of System 14 point ROS evaluated with pertinent positives noted per HPI PHYSICAL EXAM General: Alert, Oriented X3, Cooperative, No acute distress HEENT: Atraumatic, Mucous membr. moist/pink Lungs: Other (diminished with diffuse wheeze) Heart: Regular rate (SR), Other (unable to appreciate heart sounds due to adventitious sounds) Abdomen: Soft, No tenderness Extremities: No cyanosis, No edema Skin: No breakdown, No significant lesion Neuro: Normal speech, Sensation intact Psych/Mental Status: Mental status NL, Mood NL MUSCULOSKELETAL: Osteoarthritic changes both hands VITALS/I&O VITALS/I&O: Vital Signs Date Time Temp Pulse Resp B/P (MAP) Pulse Ox O2 Delivery O2 Flow Rate FiO2 07/04/19 07:59 93 Nasal Cannula 3.0 07/04/19 07:54 98.5 95 18 142/85 (104) 98.5 I & O 07/03/19 07/03/19 07/04/19 15:00 23:00 07:00 Intake Total 200 ml 1100 ml Balance 200 ml 1100 ml LABS Lab: Laboratory Tests Test 07/03/19 11:05 07/03/19 11:06 07/03/19 11:49 O2 Saturation 92 % (92-99) Arterial Blood pH 7.37 (7.35-7.45) Arterial Blood pCO2 at Patient Temp 61 mmHg (35-46) *H Arterial Blood pO2 at Patient Temp 62 mmHg (65-108) L Arterial Blood HCO3 34 mmol/L (21-28) H Arterial Blood Base Excess 7 mmol/L (-3-3) H FiO2 28 White Blood Count 6.3 x10^3/uL (4.0-11.0) Red Blood Count 4.42 x10^6/uL (3.50-5.40) Hemoglobin 13.3 g/dL (12.0-15.5) Hematocrit 40.6 % (36.0-47.0) Mean Corpuscular Volume 92 fL (79-100) Mean Corpuscular Hemoglobin 30 pg (25-35) Mean Corpuscular Hemoglobin Concent 33 g/dL (31-37) Red Cell Distribution Width 13.5 % (11.5-14.5) Platelet Count 220 x10^3/uL (140-400) Neutrophils (%) (Auto) 53 % (31-73) Lymphocytes (%) (Auto) 26 % (24-48) Monocytes (%) (Auto) 13 % (0-9) H Eosinophils (%) (Auto) 7 % (0-3) H Basophils (%) (Auto) 1 % (0-3) Neutrophils # (Auto) 3.3 x10^3/uL (1.8-7.7) Lymphocytes # (Auto) 1.6 x10^3/uL (1.0-4.8) Monocytes # (Auto) 0.8 x10^3/uL (0.0-1.1) Eosinophils # (Auto) 0.4 x10^3/uL (0.0-0.7) Basophils # (Auto) 0.1 x10^3/uL (0.0-0.2) Prothrombin Time 13.3 SEC (11.7-14.0) Prothrombin Time INR 1.0 (0.8-1.1) Sodium Level 143 mmol/L (136-145) Potassium Level 3.8 mmol/L (3.5-5.1) Chloride Level 103 mmol/L (98-107) Carbon Dioxide Level 34 mmol/L (21-32) H Anion Gap 6 (6-14) Blood Urea Nitrogen 11 mg/dL (7-20) Creatinine 0.8 mg/dL (0.6-1.0) Estimated GFR (Cockcroft-Gault) 88.2 BUN/Creatinine Ratio 14 (6-20) Glucose Level 103 mg/dL (70-99) H Lactic Acid Level 0.8 mmol/L (0.4-2.0) Calcium Level 8.9 mg/dL (8.5-10.1) Magnesium Level 2.0 mg/dL (1.8-2.4) Total Bilirubin 0.3 mg/dL (0.2-1.0) Aspartate Amino Transferase (AST) 24 U/L (15-37) Alanine Aminotransferase (ALT) 13 U/L (14-59) L Alkaline Phosphatase 65 U/L (46-116) Creatine Kinase 760 U/L (26-192) H Troponin I Quantitative < 0.017 ng/mL (0.000-0.055) DG-Rbl-X-Type Natriuretic Peptide 144 pg/mL (0-124) H Total Protein 7.0 g/dL (6.4-8.2) Albumin 3.8 g/dL (3.4-5.0) Albumin/Globulin Ratio 1.2 (1.0-1.7) Lipase 180 U/L (73-393) Influenza Type A Antigen Negative (NEGATIVE) Influenza Type B Antigen Negative (NEGATIVE) Laboratory Tests 07/03/19 11:06 Laboratory Tests 07/03/19 11:06 ECHOCARDIOGRAM ECHOCARDIOGRAM <Conclusion> The systolic function is mildly impaired. EF 45% There is global hypokinesis and septal motion suggestive of conduction defect. DATE: 11/21/18 0857 HEART CATH HEART CATH Conclusion Pt with pulmonary HTN and CAD. Succsesfull stenting of the Mid-RCA done with a drug eluting stent. The pt tolerated the procedure well. The view of the femoral artery showed a small caliber vessel therefore the groin lines were sutured in place to be pulled later with manual pressure when the ACT is under 200. Recommendations Daily ASA with Plavix for at least one year DATE: 02/23/18 1159 ASSESSMENT/PLAN ASSESSMENT/PLAN 1. Acute respiratory failure with hypercapnia/AECOPD 2. URI 3. Atypical CP: due to respiratory symptoms. Noncardiac 4. CAD: S/P PCI/MARLA to RCA 02/2018, clinically stable 5. Mild Cardiomyopathy: compensated. last EF at 45% 6. HTN: controlled 7. HLP: LDL not on goal 8. Obesity Recommendations 1. Optimize pulmonary treatment per PCP. steroids 2. Secondary prevention 3. Repeat EKG. Limited TTE and will note EF. Reviewing her meds she is not on any ACEi or BB. Will note EF and will place on GDMT for CAD. No BB at this time with current wheeze. 4. Continue with ASA and plavix. Will start on lipitor TUNG HERRERA MD 07/04/19 1322: CARDIAC CONSULT ASSESSMENT/PLAN ASSESSMENT/PLAN Patient seen and examined. Agree with ELECTRICAL MAINTENANCE TECHNICIAN's assessment and plan. CP atypical and musculoskeletal CAD stable Chr systolic heart failure compensated Agree with statin initiation for elevated LDL Continue current treatment for COPD exacerbation Thank you for your consultation AVNI ALLEN APRN Jul 04, 2019 08:56 TUNG HERRERA MD Jul 04, 2019 13:22
[2019-07-04] MEDS: POTASSIUM CHLORIDE 10 MEQ TABLET.ER. PO SCH (08:57)
[2019-07-04] MEDS: ALPRAZolam 0.25 MG TABLET PO SCH ×2 (08:57→20:37)
[2019-07-04] MEDS: FERROUS SULFATE ORAL 300 MG/5 ML SOLUTION. PO SCH ×2 (08:58→17:46)
[2019-07-04] MEDS: ENOXAPARIN 40 MG/0.4 ML SYRINGE. SQ SCH (09:00)
--- NOTE | 2019-07-04 09:20 | CONS ---
DATE OF CONSULTATION: PULMONARY CONSULTATION ATTENDING PHYSICIAN: Stuart Grajeda MD REASON FOR CONSULTATION: Dyspnea. HISTORY OF PRESENT ILLNESS: The patient is a 59-year-old who has severe COPD with chronic hypoxic respiratory failure, on home oxygen at 2 liters. She came into the hospital with complaint of a cough, which has been nonproductive and occasionally yellow to green sputum. She denies any chest pain. She has some shortness of breath with wheezing. The patient's chest x-ray did not reveal any acute infiltrates. No headaches, no nausea or vomiting, no diarrhea. She was complaining of myalgias. Her chest x-ray did not reveal any acute infiltrates. The patient also had ultrasound of her abdomen and no acute abnormalities were seen. PAST MEDICAL HISTORY: Significant for CAD, COPD, chronic respiratory failure, dyslipidemia, hypertension, chronic bronchitis. PAST SURGICAL HISTORY: Angioplasty, hysterectomy, tonsillectomy, cardiac catheterization and laparoscopy. ALLERGIES: PENICILLIN, BENZONATATE, IRON AND MORPHINE. CURRENT MEDICATIONS: Reviewed as listed in the MRAD including antibiotic, Rocephin. She is on Pulmicort and DuoNebs along with azithromycin. REVIEW OF SYSTEMS: Twelve-point system review obtained. Pertinent positives discussed in my history of present illness, otherwise noncontributory. All systems that were negative were reviewed as well. SOCIAL HISTORY: Has long history of tobacco use, but no longer smokes cigarettes. FAMILY HISTORY: Noncontributory to lungs. PHYSICAL EXAMINATION: VITAL SIGNS: Reviewed, pulse ox 93% on 3 liters. NECK: Supple. LUNGS: With occasional wheezes. CARDIOVASCULAR: With a regular rate. ABDOMEN: Soft, nontender. EXTREMITIES: With no pitting edema. LABORATORY DATA: Labs were reviewed. ABG showed a pH of 7.37, pCO2 of 61, pO2 of 62 on 28% FIO2. Influenza screen negative. BUN and creatinine 11 and 0.8. White cell count 6.3, hemoglobin 13.3, platelets normal. IMPRESSION: 1. Acute on chronic hypoxic respiratory failure secondary to acute exacerbation of chronic obstructive pulmonary disease and acute bronchitis. 2. Cough, combination of viral and possible bacterial bronchitis. 3. No definite consolidation seen on the chest x-ray. 4. ABGs with compensated hypercapnia. RECOMMENDATIONS: 1. Continue with present oxygen and gradually wean to keep saturations above 92% and wean to a baseline of 2 liters. 2. Continue antibiotics. 3. DuoNebs along with Pulmicort. 4. Cough suppressant. 5. Anticipate hospitalization 24-[address] Lewis. We will follow along with you. TRACEE PIZARRO MD DR: MAURO/franklin JOB#: [id number] / [id number]
--- NOTE | 2019-07-04 09:27 | PDOC ---
PROGRESS NOTES Chief Complaint Chief Complaint Acute respiratory failure with hypercapnia/AECOPD Atypical CP CAD: S/P PCI/MARLA to RCA 02/2018 Mild Cardiomyopathy: compensated HTN: controlled HLP: LDL not on goal Obesity History of Present Illness History of Present Illness Ms Stevens is a 59 yo F w/ PMHx hypertension, dyslipidemia, coronary artery disease status post CABG, COPD on 2 L of oxygen who presents with complaint of shortness of breath and cough. Cough that sometimes is productive with yellow and green sputum for the last 2 weeks associated with constant shortness of breath that getting worse with supine position and light activity. Also complaining of myalgia and subjective fever, sore throat and earache and denies vomiting, diarrhea, urinary symptoms, some left and right chest discomfort, RUQ PAIN AFTER MEALS NOTED NEW. CXR and RUQ US were relatively unrevealing. Influenza screen negative. ABG 7.. Cardiology and pulmonology consulted. Feeling more short of breath. Chest pain improved. RUQ pain improved. Now c/o nasal stuffiness, red itchy eyes and ear fullness bilaterally. Cough is tight. Plan: IV steroids Add prn albuterol nebs Normal ear and nasal examination Add antihistamine and nasal corticosteroid Vitals Vitals Vital Signs Date Time Temp Pulse Resp B/P (MAP) Pulse Ox O2 Delivery O2 Flow Rate FiO2 07/04/19 07:59 93 Nasal Cannula 3.0 07/04/19 07:54 98.5 95 18 142/85 (104) 98.5 Physical Exam General: Alert, Oriented X3, Cooperative, No acute distress Lungs: Wheezing Abdomen: Normal bowel sounds, Soft, Other (MILD RUQ TENDERNESS, NO REBOUND) Extremities: No cyanosis Labs LABS Laboratory Tests Test 07/03/19 11:05 07/03/19 11:06 07/03/19 11:49 07/04/19 08:20 O2 Saturation 92 % (92-99) Arterial Blood pH 7.37 (7.35-7.45) Arterial Blood pCO2 at Patient Temp 61 mmHg (35-46) Arterial Blood pO2 at Patient Temp 62 mmHg (65-108) Arterial Blood HCO3 34 mmol/L (21-28) Arterial Blood Base Excess 7 mmol/L (-3-3) FiO2 28 White Blood Count 6.3 x10^3/uL (4.0-11.0) Red Blood Count 4.42 x10^6/uL (3.50-5.40) Hemoglobin 13.3 g/dL (12.0-15.5) Hematocrit 40.6 % (36.0-47.0) Mean Corpuscular Volume 92 fL (79-100) Mean Corpuscular Hemoglobin 30 pg (25-35) Mean Corpuscular Hemoglobin Concent 33 g/dL (31-37) Red Cell Distribution Width 13.5 % (11.5-14.5) Platelet Count 220 x10^3/uL (140-400) Neutrophils (%) (Auto) 53 % (31-73) Lymphocytes (%) (Auto) 26 % (24-48) Monocytes (%) (Auto) 13 % (0-9) Eosinophils (%) (Auto) 7 % (0-3) Basophils (%) (Auto) 1 % (0-3) Neutrophils # (Auto) 3.3 x10^3/uL (1.8-7.7) Lymphocytes # (Auto) 1.6 x10^3/uL (1.0-4.8) Monocytes # (Auto) 0.8 x10^3/uL (0.0-1.1) Eosinophils # (Auto) 0.4 x10^3/uL (0.0-0.7) Basophils # (Auto) 0.1 x10^3/uL (0.0-0.2) Prothrombin Time 13.3 SEC (11.7-14.0) Prothromb Time International Ratio 1.0 (0.8-1.1) Sodium Level 143 mmol/L (136-145) Potassium Level 3.8 mmol/L (3.5-5.1) Chloride Level 103 mmol/L (98-107) Carbon Dioxide Level 34 mmol/L (21-32) Anion Gap 6 (6-14) Blood Urea Nitrogen 11 mg/dL (7-20) Creatinine 0.8 mg/dL (0.6-1.0) Estimated GFR (Cockcroft-Gault) 88.2 BUN/Creatinine Ratio 14 (6-20) Glucose Level 103 mg/dL (70-99) Lactic Acid Level 0.8 mmol/L (0.4-2.0) Calcium Level 8.9 mg/dL (8.5-10.1) Magnesium Level 2.0 mg/dL (1.8-2.4) Total Bilirubin 0.3 mg/dL (0.2-1.0) Aspartate Amino Transf (AST/SGOT) 24 U/L (15-37) Alanine Aminotransferase (ALT/SGPT) 13 U/L (14-59) Alkaline Phosphatase 65 U/L (46-116) Creatine Kinase 760 U/L (26-192) Troponin I Quantitative < 0.017 ng/mL (0.000-0.055) < 0.017 ng/mL (0.000-0.055) EL-Noi-W-Type Natriuretic Peptide 144 pg/mL (0-124) Total Protein 7.0 g/dL (6.4-8.2) Albumin 3.8 g/dL (3.4-5.0) Albumin/Globulin Ratio 1.2 (1.0-1.7) Lipase 180 U/L (73-393) Influenza Type A Antigen Negative (NEGATIVE) Influenza Type B Antigen Negative (NEGATIVE) Comment Review of Relevant I have reviewed the following items paulette (where applicable) has been applied. Labs Laboratory Tests Test 07/03/19 11:05 07/03/19 11:06 07/03/19 11:49 07/04/19 08:20 O2 Saturation 92 % (92-99) Arterial Blood pH 7.37 (7.35-7.45) Arterial Blood pCO2 at Patient Temp 61 mmHg (35-46) Arterial Blood pO2 at Patient Temp 62 mmHg (65-108) Arterial Blood HCO3 34 mmol/L (21-28) Arterial Blood Base Excess 7 mmol/L (-3-3) FiO2 28 White Blood Count 6.3 x10^3/uL (4.0-11.0) Red Blood Count 4.42 x10^6/uL (3.50-5.40) Hemoglobin 13.3 g/dL (12.0-15.5) Hematocrit 40.6 % (36.0-47.0) Mean Corpuscular Volume 92 fL (79-100) Mean Corpuscular Hemoglobin 30 pg (25-35) Mean Corpuscular Hemoglobin Concent 33 g/dL (31-37) Red Cell Distribution Width 13.5 % (11.5-14.5) Platelet Count 220 x10^3/uL (140-400) Neutrophils (%) (Auto) 53 % (31-73) Lymphocytes (%) (Auto) 26 % (24-48) Monocytes (%) (Auto) 13 % (0-9) Eosinophils (%) (Auto) 7 % (0-3) Basophils (%) (Auto) 1 % (0-3) Neutrophils # (Auto) 3.3 x10^3/uL (1.8-7.7) Lymphocytes # (Auto) 1.6 x10^3/uL (1.0-4.8) Monocytes # (Auto) 0.8 x10^3/uL (0.0-1.1) Eosinophils # (Auto) 0.4 x10^3/uL (0.0-0.7) Basophils # (Auto) 0.1 x10^3/uL (0.0-0.2) Prothrombin Time 13.3 SEC (11.7-14.0) Prothromb Time International Ratio 1.0 (0.8-1.1) Sodium Level 143 mmol/L (136-145) Potassium Level 3.8 mmol/L (3.5-5.1) Chloride Level 103 mmol/L (98-107) Carbon Dioxide Level 34 mmol/L (21-32) Anion Gap 6 (6-14) Blood Urea Nitrogen 11 mg/dL (7-20) Creatinine 0.8 mg/dL (0.6-1.0) Estimated GFR (Cockcroft-Gault) 88.2 BUN/Creatinine Ratio 14 (6-20) Glucose Level 103 mg/dL (70-99) Lactic Acid Level 0.8 mmol/L (0.4-2.0) Calcium Level 8.9 mg/dL (8.5-10.1) Magnesium Level 2.0 mg/dL (1.8-2.4) Total Bilirubin 0.3 mg/dL (0.2-1.0) Aspartate Amino Transf (AST/SGOT) 24 U/L (15-37) Alanine Aminotransferase (ALT/SGPT) 13 U/L (14-59) Alkaline Phosphatase 65 U/L (46-116) Creatine Kinase 760 U/L (26-192) Troponin I Quantitative < 0.017 ng/mL (0.000-0.055) < 0.017 ng/mL (0.000-0.055) JI-Bzx-M-Type Natriuretic Peptide 144 pg/mL (0-124) Total Protein 7.0 g/dL (6.4-8.2) Albumin 3.8 g/dL (3.4-5.0) Albumin/Globulin Ratio 1.2 (1.0-1.7) Lipase 180 U/L (73-393) Influenza Type A Antigen Negative (NEGATIVE) Influenza Type B Antigen Negative (NEGATIVE) Laboratory Tests Test 07/03/19 11:05 07/03/19 11:06 07/03/19 11:49 07/04/19 08:20 O2 Saturation 92 % (92-99) Arterial Blood pH 7.37 (7.35-7.45) Arterial Blood pCO2 at Patient Temp 61 mmHg (35-46) Arterial Blood pO2 at Patient Temp 62 mmHg (65-108) Arterial Blood HCO3 34 mmol/L (21-28) Arterial Blood Base Excess 7 mmol/L (-3-3) FiO2 28 White Blood Count 6.3 x10^3/uL (4.0-11.0) Red Blood Count 4.42 x10^6/uL (3.50-5.40) Hemoglobin 13.3 g/dL (12.0-15.5) Hematocrit 40.6 % (36.0-47.0) Mean Corpuscular Volume 92 fL (79-100) Mean Corpuscular Hemoglobin 30 pg (25-35) Mean Corpuscular Hemoglobin Concent 33 g/dL (31-37) Red Cell Distribution Width 13.5 % (11.5-14.5) Platelet Count 220 x10^3/uL (140-400) Neutrophils (%) (Auto) 53 % (31-73) Lymphocytes (%) (Auto) 26 % (24-48) Monocytes (%) (Auto) 13 % (0-9) Eosinophils (%) (Auto) 7 % (0-3) Basophils (%) (Auto) 1 % (0-3) Neutrophils # (Auto) 3.3 x10^3/uL (1.8-7.7) Lymphocytes # (Auto) 1.6 x10^3/uL (1.0-4.8) Monocytes # (Auto) 0.8 x10^3/uL (0.0-1.1) Eosinophils # (Auto) 0.4 x10^3/uL (0.0-0.7) Basophils # (Auto) 0.1 x10^3/uL (0.0-0.2) Prothrombin Time 13.3 SEC (11.7-14.0) Prothromb Time International Ratio 1.0 (0.8-1.1) Sodium Level 143 mmol/L (136-145) Potassium Level 3.8 mmol/L (3.5-5.1) Chloride Level 103 mmol/L (98-107) Carbon Dioxide Level 34 mmol/L (21-32) Anion Gap 6 (6-14) Blood Urea Nitrogen 11 mg/dL (7-20) Creatinine 0.8 mg/dL (0.6-1.0) Estimated GFR (Cockcroft-Gault) 88.2 BUN/Creatinine Ratio 14 (6-20) Glucose Level 103 mg/dL (70-99) Lactic Acid Level 0.8 mmol/L (0.4-2.0) Calcium Level 8.9 mg/dL (8.5-10.1) Magnesium Level 2.0 mg/dL (1.8-2.4) Total Bilirubin 0.3 mg/dL (0.2-1.0) Aspartate Amino Transf (AST/SGOT) 24 U/L (15-37) Alanine Aminotransferase (ALT/SGPT) 13 U/L (14-59) Alkaline Phosphatase 65 U/L (46-116) Creatine Kinase 760 U/L (26-192) Troponin I Quantitative < 0.017 ng/mL (0.000-0.055) < 0.017 ng/mL (0.000-0.055) PH-Kzy-A-Type Natriuretic Peptide 144 pg/mL (0-124) Total Protein 7.0 g/dL (6.4-8.2) Albumin 3.8 g/dL (3.4-5.0) Albumin/Globulin Ratio 1.2 (1.0-1.7) Lipase 180 U/L (73-393) Influenza Type A Antigen Negative (NEGATIVE) Influenza Type B Antigen Negative (NEGATIVE) Medications Current Medications Albuterol/ Ipratropium (Duoneb) 3 ml 1X ONCE NEB Last administered on 07/03/19at 11:28; Start 07/03/19 at 11:15; Stop 07/03/19 at 11:16; Status DC Methylprednisolone Sodium Succinate (SOLU-Medrol 125MG VIAL) 125 mg 1X ONCE IV Last administered on 07/03/19at 12:36; Start 07/03/19 at 11:15; Stop 07/03/19 at 11:16; Status DC Sodium Chloride 1,000 ml @ 100 mls/hr Q10H IV Last administered on 07/04/19at 08:17; Start 07/03/19 at 12:18; Stop 07/04/19 at 12:17 Ceftriaxone Sodium (Rocephin) 1 gm 1X ONCE IVP Last administered on 07/03/19at 12:35; Start 07/03/19 at 12:30; Stop 07/03/19 at 12:31; Status DC Alprazolam (Xanax) 0.25 mg BID PO Last administered on 07/04/19at 08:57; Start 07/03/19 at 21:00 Aspirin (Ecotrin) 81 mg DAILYWBKFT PO Last administered on 07/04/19at 08:15; Start 07/04/19 at 08:00 Clopidogrel Bisulfate (Plavix) 75 mg DAILYWBKFT PO Last administered on 07/04/19at 08:15; Start 07/04/19 at 08:00 Ferrous Sulfate (Iron Oral Solution) 300 mg BIDWMEALS PO Last administered on 07/04/19at 08:58; Start 07/03/19 at 17:00 Furosemide (Lasix) 20 mg DAILY16 PO Last administered on 07/03/19at 17:03; St art 07/03/19 at 16:00 Albuterol/ Ipratropium (Duoneb) 3 ml RTQID IH ; Start 07/03/19 at 16:00; Status UNV Montelukast Sodium (Singulair) 10 mg HS PO Last administered on 07/03/19at 21:01; Start 07/03/19 at 21:00 Potassium Chloride (Klor-Con) 10 meq DAILYWBKFT PO Last administered on 07/04/19at 08:57; Start 07/04/19 at 08:00 Sertraline HCl (Zoloft) 50 mg HS PO Last administered on 07/03/19at 21:02; Start 07/03/19 at 21:00 Budesonide (Pulmicort) 0.5 mg RTBID NEB Last administered on 07/04/19at 07:57; Start 07/03/19 at 20:00 Pantoprazole Sodium (Protonix) 40 mg DAILYAC PO Last administered on 07/04/19at 08:15; Start 07/04/19 at 07:30 Guaifenesin/ Codeine Phosphate (Robitussin Ac) 5 ml PRN Q6HRS PRN PO COUGH Last administered on 07/04/19at 01:50; Start 07/03/19 at 15:15 Sodium Chloride (Normal Saline Flush) 3 ml QSHIFT PRN IV AFTER MEDS AND BLOOD DRAWS; Start 07/03/19 at 15:00 Ondansetron HCl (Zofran) 4 mg PRN Q4HRS PRN IV NAUSEA/VOMITING; Start 07/03/19 at 15:00 Acetaminophen (Tylenol) 650 mg PRN Q4HRS PRN PO TEMP OVER 100.4F OR MILD PAIN; Start 07/03/19 at 15:00 Al Hydroxide/Mg Hydroxide (Mylanta Plus Xs) 30 ml PRN DAILY PRN PO HEARTBURN / GAS; Start 07/03/19 at 15:00 Clonidine HCl (Catapres) 0.1 mg PRN Q6HRS PRN PO SBP>160 OR DBP>90; Start 07/03/19 at 15:00 Docusate Sodium (Colace) 100 mg PRN BID PRN PO CONSTIPATION; Start 07/03/19 at 15:00 Albuterol/ Ipratropium (Duoneb) 3 ml Q4H NEB Last administered on 07/04/19at 07:56; Start 07/03/19 at 15:00 Guaifenesin (Robitussin) 200 mg PRN Q4HRS PRN PO COUGH, 1ST CHOICE Last administered on 07/03/19at 22:01; Start 07/03/19 at 15:00 Enoxaparin Sodium (Lovenox 40mg Syringe) 40 mg DAILY SQ Last administered on 07/04/19at 09:00; Start 07/04/19 at 09:00 Levofloxacin/ Dextrose 100 ml @ 100 mls/hr Q24H IV ; Start 07/03/19 at 15:00; Status UNV Azithromycin 500 mg/Sodium Chloride 250 ml @ 250 mls/hr DAILY IV Last administered on 07/04/19at 08:16; Start 07/03/19 at 16:00 Ceftriaxone Sodium (Rocephin) 1 gm DAILY IVP Last administered on 07/04/19at 08:16; Start 07/04/19 at 09:00 Active Scripts Active Prednisone 20 Mg Tablet 1 Tab PO DAILY 6 Days take three pills daily for 2 days then two pills daily for 2 days then one pill daily for 2 days. Levaquin (Levofloxacin) 500 Mg Tablet 1 Tab PO DAILY 3 Days [guaiFENesin/CODEINE 100mg/10mg] 5 ML Liquid 5 Ml PO PRN Q6HRS PRN Ferrous Sulfate 300 Mg/5 Ml Liquid 300 Mg PO BIDWMEALS 30 Days Potassium Chloride (Potassium Chloride) 10 Meq Capsule.er 1 Cap PO DAILY Reported Xanax (Alprazolam) 0.25 Mg Tablet 0.25 Mg PO BID Protonix (Pantoprazole Sodium) 20 Mg Tablet. 40 Mg PO DAILY Zoloft (Sertraline Hcl) 50 Mg Tablet 1 Tab PO HS Clopidogrel (Clopidogrel Bisulfate) 75 Mg Tablet 1 Tab PO DAILY Singulair Tablet (Montelukast Sodium) 10 Mg Tablet 1 Tab PO HS Lasix (Furosemide) 20 Mg Tablet 1 Tab PO DAILY16 Symbicort 160-4.5 Mcg Inhaler (Budesonide/Formoterol Fumarate) 10.2 Gm Hfa.aer.ad 10.2 Gm IH BID Albuterol Sulfate Hfa Inhaler (Albuterol Sulfate) 8.5 Gm Hfa.aer.ad 8.5 Gm IH PRN Duoneb 0.5 Mg-3 Mg/3 Ml Soln (Ipratropium/Albuterol Sulfate) 3 Ml Ampul.neb 3 Ml IH QID Aspir 81 (Aspirin) 81 Mg Tablet. 81 Mg PO DAILY Vitals/I & O Vital Sign - Last 24 Hours 07/03/19 07/03/19 07/03/19 07/03/19 10:58 11:29 11:37 12:37 Temp 99.2 99.2 Pulse 104 85 83 Resp 18 16 16 B/P (MAP) 157/93 (114) 134/91 (105) 135/84 (101) Pulse Ox 91 94 94 O2 Delivery Nasal Cannula Nasal Cannula Room Air Room Air O2 Flow Rate 2.0 2.0 07/03/19 07/03/19 07/03/19 07/03/19 13:37 14:11 15:07 15:30 Temp 98.5 98.5 Pulse 88 89 97 Resp 16 16 18 B/P (MAP) 142/80 (100) 138/90 (106) 139/92 (108) Pulse Ox 94 94 92 O2 Delivery Room Air Room Air Nasal Cannula Nasal Cannula O2 Flow Rate 2.0 3.0 07/03/19 07/03/19 07/03/19 07/03/19 16:24 19:35 20:00 20:21 Temp 98.5 98.5 Pulse 111 Resp 18 B/P (MAP) 142/86 (104) Pulse Ox 93 94 94 O2 Delivery Nasal Cannula Nasal Cannula Nasal Cannula Nasal Cannula O2 Flow Rate 2.0 3.0 2.0 2.0 07/03/19 07/03/19 07/04/19 07/04/19 20:26 23:57 02:11 03:45 Temp 98.5 98.1 98.5 98.1 Pulse 106 84 Resp 18 18 B/P (MAP) 134/68 (90) 117/72 (87) Pulse Ox 94 92 93 O2 Delivery Nasal Cannula Nasal Cannula Nasal Cannula Nasal Cannula O2 Flow Rate 2.0 3.0 3.0 3.0 07/04/19 07/04/19 07:54 07:59 Temp 98.5 98.5 Pulse 95 Resp 18 B/P (MAP) 142/85 (104) Pulse Ox 94 93 O2 Delivery Nasal Cannula Nasal Cannula O2 Flow Rate 3.0 3.0 Intake and Output 07/03/19 07/03/19 07/04/19 15:00 23:00 07:00 Intake Total 200 ml 1100 ml Balance 200 ml 1100 ml ZEB ASHLEY MD Jul 04, 2019 09:27
[2019-07-04] MEDS ORDERED: ALBUTEROL SULFATE 2.5 MG/3 ML NEBU. NEB PRN (11:00)
[2019-07-04 11:49] VITALS: BP 117/64
--- NOTE | 2019-07-04 12:33 | NUR ---
SS following for discharge planning. SS reviewed pt chart. Pt is from home with family and is currently requiring oxygen. PT/OT evaluated and recommended home with home healthcare/assistance. SS will continue to follow for discharge planning.
[2019-07-04] MEDS: methylPREDNISolone SOD SUCC PF 40 MG/ML VIAL. IV SCH ×2 (13:31→20:37)
[2019-07-04] MEDS: CETIRIZINE HCL 10 MG TABLET. PO SCH (13:32)
[2019-07-04] MEDS: FLUTICASONE 50MCG/NASAL SPRAY 16GM BOTTLE. NS SCH (13:32)
[2019-07-04 15:30] VITALS: BP 131/78
--- NOTE | 2019-07-04 16:20 | CARD ---
MR#: [id number] Date of Study: 07/04/2019 Ordering Physician: AVNI ALLEN, Referring Physician: AVNI ALLEN, Tech: Gala Holm APPROVED REPORT EXAM: Two-dimensional and M-mode echocardiogram with Doppler and color Doppler. Other Information Quality : AverageHR: 94bpm Technically limited study due to Rapid heart rate & COPD INDICATION COPD LV Function: RISK FACTORS Hypertension 2D DIMENSIONS RVDd3.5 (2.9-3.5cm)Left Atrium(2D)2.7 (1.6-4.0cm) IVSd0.9 (0.7-1.1cm)Aortic Root(2D)2.7 (2.0-3.7cm) LVDd4.7 (3.9-5.9cm)LVOT Diameter2.0 (1.8-2.4cm) PWd0.9 (0.7-1.1cm)LVDs2.9 (2.5-4.0cm) FS (%) 39.2 %SV72.8 ml LVEF(%)69.6 (>50%) LEFT VENTRICLE The left ventricle is normal size. There is normal left ventricular wall thickness. The left ventricu lar systolic function is normal. The Ejection Fraction is 55-60%. There is normal LV segmental wall m otion. Diastology not performed. RIGHT VENTRICLE The right ventricle is normal size. There is normal right ventricular wall thickness. The right ventr icular systolic function is normal. ATRIA The left atrium size is normal. The right atrium size is normal. The interatrial septum is intact wit h no evidence for an atrial septal defect or patent foramen ovale as noted on 2-D or Doppler imaging. AORTIC VALVE The aortic valve is normal in structure and function. Doppler and color-flow analysis was not perform ed. There is no significant aortic valvular stenosis. MITRAL VALVE The mitral valve is thickened but opens well. There is no evidence of mitral valve prolapse. There is no mitral valve stenosis. Doppler and color-flow analysis was not performed. TRICUSPID VALVE The tricuspid valve is normal in structure and function. Doppler and color-flow analysis was not perf ormed. There is no tricuspid valve stenosis. PULMONIC VALVE The pulmonic valve is not well visualized. Doppler and color-flow analysis was not performed. GREAT VESSELS The aortic root is normal in size. The IVC is normal in size and collapses >50% with inspiration. PERICARDIAL EFFUSION There is no evidence of significant pericardial effusion. Critical Notification Critical Value: No <Conclusion> The left ventricular systolic function is normal. The Ejection Fraction is 55-60%. There is normal LV segmental wall motion. There is no evidence of significant pericardial effusion. Signed by : Papa Jean-Baptiste, Electronically Approved : 07/04/2019 16:19:53
[2019-07-04] MEDS: FUROSEMIDE 20 MG TABLET PO SCH (17:45)
[2019-07-04 19:30] VITALS: BP 140/82
[2019-07-04] MEDS: SERTRALINE 50 MG TABLET. PO SCH (20:37)
[2019-07-04] MEDS: LACTOBACILLUS RHAMNOSUS GG 1 CAPSULE. PO SCH (20:37)
[2019-07-04] MEDS: ATORVASTATIN CALCIUM 40 MG TABLET. PO SCH (20:37)
[2019-07-04] MEDS: MONTELUKAST SODIUM 10 MG TABLET. PO SCH (20:37)
[2019-07-04 23:30] VITALS: BP 124/75
[2019-07-05] MEDS: IPRATRPIUM/ALBUTEROL 0.5/2.5MG 3 ML NEBU. NEB SCH ×5 (03:19→23:55)
[2019-07-05 03:35] VITALS: BP 120/75
[2019-07-05] MEDS: methylPREDNISolone SOD SUCC PF 40 MG/ML VIAL. IV SCH (06:13)
[2019-07-05 07:00] VITALS: BP 148/90
[2019-07-05] MEDS: BUDESONIDE 0.5 MG/2 ML NEBU. NEB SCH ×2 (07:26→19:51)
--- NOTE | 2019-07-05 08:37 | PDOC ---
PROGRESS NOTES Chief Complaint Chief Complaint Acute respiratory failure with hypercapnia Acute exacerbation of COPD Atypical CP Abdominal pain -improving CAD - S/P PCI/MARLA to RCA 02/2018 Mild Cardiomyopathy - compensated HTN - controlled HLP - LDL not on goal Obesity History of Present Illness History of Present Illness Ms Stevens is a 59 yo F w/ PMHx hypertension, dyslipidemia, coronary artery disease status post CABG, COPD on 2 L of oxygen who presents with complaint of shortness of breath and cough. Cough that sometimes is productive with yellow and green sputum for the last 2 weeks associated with constant shortness of breath that getting worse with supine position and light activity. Also complaining of myalgia and subjective fever, sore throat and earache and denies vomiting, diarrhea, urinary symptoms, some left and right chest discomfort, RUQ PAIN AFTER MEALS NOTED NEW. CXR and RUQ US were relatively unrevealing. Influenza screen negative. ABG 7.37//. Cardiology and pulmonology consulted. 07/04: Feeling more short of breath. Chest pain improved. RUQ pain improved. Now c/o nasal stuffiness, red itchy eyes and ear fullness bilaterally. Cough is tight. Abdominal pain has improved a bit. She is upset that she thinks she is being given a diuretic at night and states she wants more salt with her food, states "There is nothing wrong with my heart, I can eat what I want", is requesting regular diet. I have advised her that she does have CAD and prior RCA stenting in 2018. She is insistent on dietary liberalization Plan: IV steroids change to PO Change antibiotics to PO Added prn albuterol nebs F/u pulm recs and cardiology recs Normal ear and nasal examination Add antihistamine and nasal corticosteroid Cont to wean O2, Still on 3L, not at home dosing Vitals Vitals Vital Signs Date Time Temp Pulse Resp B/P (MAP) Pulse Ox O2 Delivery O2 Flow Rate FiO2 07/05/19 07:29 96 Nasal Cannula 3.0 07/05/19 03:35 98.0 72 20 120/75 (90) 98.0 Physical Exam General: Alert, Oriented X3, Cooperative, No acute distress Heart: Regular rate (SR), Other (unable to appreciate heart sounds due to adventitious sounds) Lungs: Wheezing Abdomen: Soft, No tenderness Extremities: No cyanosis, No edema Skin: No breakdown, No significant lesion Comment Review of Relevant I have reviewed the following items paulette (where applicable) has been applied. Labs Laboratory Tests Test 07/03/19 11:05 07/03/19 11:06 07/03/19 11:49 07/04/19 08:20 O2 Saturation 92 % (92-99) Arterial Blood pH 7.37 (7.35-7.45) Arterial Blood pCO2 at Patient Temp 61 mmHg (35-46) Arterial Blood pO2 at Patient Temp 62 mmHg (65-108) Arterial Blood HCO3 34 mmol/L (21-28) Arterial Blood Base Excess 7 mmol/L (-3-3) FiO2 28 White Blood Count 6.3 x10^3/uL (4.0-11.0) Red Blood Count 4.42 x10^6/uL (3.50-5.40) Hemoglobin 13.3 g/dL (12.0-15.5) Hematocrit 40.6 % (36.0-47.0) Mean Corpuscular Volume 92 fL (79-100) Mean Corpuscular Hemoglobin 30 pg (25-35) Mean Corpuscular Hemoglobin Concent 33 g/dL (31-37) Red Cell Distribution Width 13.5 % (11.5-14.5) Platelet Count 220 x10^3/uL (140-400) Neutrophils (%) (Auto) 53 % (31-73) Lymphocytes (%) (Auto) 26 % (24-48) Monocytes (%) (Auto) 13 % (0-9) Eosinophils (%) (Auto) 7 % (0-3) Basophils (%) (Auto) 1 % (0-3) Neutrophils # (Auto) 3.3 x10^3/uL (1.8-7.7) Lymphocytes # (Auto) 1.6 x10^3/uL (1.0-4.8) Monocytes # (Auto) 0.8 x10^3/uL (0.0-1.1) Eosinophils # (Auto) 0.4 x10^3/uL (0.0-0.7) Basophils # (Auto) 0.1 x10^3/uL (0.0-0.2) Prothrombin Time 13.3 SEC (11.7-14.0) Prothromb Time International Ratio 1.0 (0.8-1.1) Sodium Level 143 mmol/L (136-145) Potassium Level 3.8 mmol/L (3.5-5.1) Chloride Level 103 mmol/L (98-107) Carbon Dioxide Level 34 mmol/L (21-32) Anion Gap 6 (6-14) Blood Urea Nitrogen 11 mg/dL (7-20) Creatinine 0.8 mg/dL (0.6-1.0) Estimated GFR (Cockcroft-Gault) 88.2 BUN/Creatinine Ratio 14 (6-20) Glucose Level 103 mg/dL (70-99) Lactic Acid Level 0.8 mmol/L (0.4-2.0) Calcium Level 8.9 mg/dL (8.5-10.1) Magnesium Level 2.0 mg/dL (1.8-2.4) Total Bilirubin 0.3 mg/dL (0.2-1.0) Aspartate Amino Transf (AST/SGOT) 24 U/L (15-37) Alanine Aminotransferase (ALT/SGPT) 13 U/L (14-59) Alkaline Phosphatase 65 U/L (46-116) Creatine Kinase 760 U/L (26-192) Troponin I Quantitative < 0.017 ng/mL (0.000-0.055) < 0.017 ng/mL (0.000-0.055) RY-Srg-W-Type Natriuretic Peptide 144 pg/mL (0-124) Total Protein 7.0 g/dL (6.4-8.2) Albumin 3.8 g/dL (3.4-5.0) Albumin/Globulin Ratio 1.2 (1.0-1.7) Lipase 180 U/L (73-393) Influenza Type A Antigen Negative (NEGATIVE) Influenza Type B Antigen Negative (NEGATIVE) Microbiology 07/03/19 Blood Culture - Preliminary, Resulted NO GROWTH AFTER 1 DAY Medications Current Medications Albuterol/ Ipratropium (Duoneb) 3 ml 1X ONCE NEB Last administered on 07/03/19at 11:28; Start 07/03/19 at 11:15; Stop 07/03/19 at 11:16; Status DC Methylprednisolone Sodium Succinate (SOLU-Medrol 125MG VIAL) 125 mg 1X ONCE IV Last administered on 07/03/19at 12:36; Start 07/03/19 at 11:15; Stop 07/03/19 at 11:16; Status DC Sodium Chloride 1,000 ml @ 100 mls/hr Q10H IV Last administered on 07/04/19at 08:17; Start 07/03/19 at 12:18; Stop 07/04/19 at 12:17; Status DC Ceftriaxone Sodium (Rocephin) 1 gm 1X ONCE IVP Last administered on 07/03/19at 12:35; Start 07/03/19 at 12:30; Stop 07/03/19 at 12:31; Status DC Alprazolam (Xanax) 0.25 mg BID PO Last administered on 07/04/19at 20:37; Start 07/03/19 at 21:00 Aspirin (Ecotrin) 81 mg DAILYWBKFT PO Last administered on 07/04/19at 08:15; Start 07/04/19 at 08:00 Clopidogrel Bisulfate (Plavix) 75 mg DAILYWBKFT PO Last administered on 07/04/19at 08:15; Start 07/04/19 at 08:00 Ferrous Sulfate (Iron Oral Solution) 300 mg BIDWMEALS PO Last administered on 07/04/19at 17:46; Start 07/03/19 at 17:00 Furosemide (Lasix) 20 mg DAILY16 PO Last administered on 07/04/19at 17:45; S tart 07/03/19 at 16:00 Albuterol/ Ipratropium (Duoneb) 3 ml RTQID IH ; Start 07/03/19 at 16:00; Status UNV Montelukast Sodium (Singulair) 10 mg HS PO Last administered on 07/04/19at 20:37; Start 07/03/19 at 21:00 Potassium Chloride (Klor-Con) 10 meq DAILYWBKFT PO Last administered on 07/04/19at 08:57; Start 07/04/19 at 08:00 Sertraline HCl (Zoloft) 50 mg HS PO Last administered on 07/04/19at 20:37; Start 07/03/19 at 21:00 Budesonide (Pulmicort) 0.5 mg RTBID NEB Last administered on 07/05/19at 07:26; Start 07/03/19 at 20:00 Pantoprazole Sodium (Protonix) 40 mg DAILYAC PO Last administered on 07/04/19at 08:15; Start 07/04/19 at 07:30 Guaifenesin/ Codeine Phosphate (Robitussin Ac) 5 ml PRN Q6HRS PRN PO COUGH, 2ND CHOICE Last administered on 07/04/19at 22:53; Start 07/03/19 at 15:15 Sodium Chloride (Normal Saline Flush) 3 ml QSHIFT PRN IV AFTER MEDS AND BLOOD DRAWS; Start 07/03/19 at 15:00 Ondansetron HCl (Zofran) 4 mg PRN Q4HRS PRN IV NAUSEA/VOMITING; Start 07/03/19 at 15:00 Acetaminophen (Tylenol) 650 mg PRN Q4HRS PRN PO TEMP OVER 100.4F OR MILD PAIN; Start 07/03/19 at 15:00 Al Hydroxide/Mg Hydroxide (Mylanta Plus Xs) 30 ml PRN DAILY PRN PO HEARTBURN / GAS; Start 07/03/19 at 15:00 Clonidine HCl (Catapres) 0.1 mg PRN Q6HRS PRN PO SBP>160 OR DBP>90; Start at 15:00 Docusate Sodium (Colace) 100 mg PRN BID PRN PO CONSTIPATION; Start 07/03/19 at 15:00 Albuterol/ Ipratropium (Duoneb) 3 ml Q4H NEB Last administered on 07/05/19at 07:26; Start 07/03/19 at 15:00 Guaifenesin (Robitussin) 200 mg PRN Q4HRS PRN PO COUGH, 1ST CHOICE Last administered on 07/03/19at 22:01; Start 07/03/19 at 15:00 Enoxaparin Sodium (Lovenox 40mg Syringe) 40 mg DAILY SQ Last administered on 07/04/19at 09:00; Start 07/04/19 at 09:00 Levofloxacin/ Dextrose 100 ml @ 100 mls/hr Q24H IV ; Start 07/03/19 at 15:00; Status UNV Azithromycin 500 mg/Sodium Chloride 250 ml @ 250 mls/hr DAILY IV Last administered on 07/04/19at 08:16; Start 07/03/19 at 16:00 Ceftriaxone Sodium (Rocephin) 1 gm DAILY IVP Last administered on 07/04/19at 08:16; Start 07/04/19 at 09:00 Albuterol Sulfate (Ventolin Neb Soln) 2.5 mg PRN Q4HRS PRN NEB SHORTNESS OF BREATH; Start 07/04/19 at 11:00 Methylprednisolone Sodium Succinate (SOLU-Medrol 40MG VIAL) 40 mg Q8HRS IV Last administered on 07/05/19at 06:13; Start 07/04/19 at 12:00 Fluticasone Propionate (Flonase) 2 spray DAILY NS Last administered on 07/04/19at 13:32; Start 07/04/19 at 11:00 Cetirizine HCl (ZyrTEC) 10 mg DAILY PO Last administered on 07/04/19at 13:32; Start 07/04/19 at 11:00 Atorvastatin Calcium (Lipitor) 40 mg QHS PO Last administered on 07/04/19at 20:37; Start 07/04/19 at 21:00 Lactobacillus Rhamnosus (Culturelle) 1 cap BID PO Last administered on 07/04/19at 20:37; Start 07/04/19 at 21:00 Active Scripts Active Prednisone 20 Mg Tablet 1 Tab PO DAILY 6 Days take three pills daily for 2 days then two pills daily for 2 days then one pill daily for 2 days. Levaquin (Levofloxacin) 500 Mg Tablet 1 Tab PO DAILY 3 Days [guaiFENesin/CODEINE 100mg/10mg] 5 ML Liquid 5 Ml PO PRN Q6HRS PRN Ferrous Sulfate 300 Mg/5 Ml Liquid 300 Mg PO BIDWMEALS 30 Days Potassium Chloride (Potassium Chloride) 10 Meq Capsule.er 1 Cap PO DAILY Reported Xanax (Alprazolam) 0.25 Mg Tablet 0.25 Mg PO BID Protonix (Pantoprazole Sodium) 20 Mg Tablet.dr 40 Mg PO DAILY Zoloft (Sertraline Hcl) 50 Mg Tablet 1 Tab PO HS Clopidogrel (Clopidogrel Bisulfate) 75 Mg Tablet 1 Tab PO DAILY Singulair Tablet (Montelukast Sodium) 10 Mg Tablet 1 Tab PO HS Lasix (Furosemide) 20 Mg Tablet 1 Tab PO DAILY16 Symbicort 160-4.5 Mcg Inhaler (Budesonide/Formoterol Fumarate) 10.2 Gm Hfa.aer.ad 10.2 Gm IH BID Albuterol Sulfate Hfa Inhaler (Albuterol Sulfate) 8.5 Gm Hfa.aer.ad 8.5 Gm IH PRN Duoneb 0.5 Mg-3 Mg/3 Ml Soln (Ipratropium/Albuterol Sulfate) 3 Ml Ampul.neb 3 Ml IH QID Aspir 81 (Aspirin) 81 Mg Tablet.dr 81 Mg PO DAILY Vitals/I & O Vital Sign - Last 24 Hours 07/04/19 07/04/19 07/04/19 07/04/19 11:49 12:00 15:30 16:06 Temp 98.6 98.7 98.6 98.7 Pulse 87 81 Resp 18 20 B/P (MAP) 117/64 (81) 131/78 (95) Pulse Ox 97 97 91 O2 Delivery Nasal Cannula Nasal Cannula Nasal Cannula Nasal Cannula O2 Flow Rate 3.0 3.0 3.0 3.0 07/04/19 07/04/19 07/04/19 07/04/19 19:30 20:00 21:09 23:10 Temp 99.0 99.0 Pulse 99 Resp 20 B/P (MAP) 140/82 (101) Pulse Ox 93 97 94 O2 Delivery Nasal Cannula Nasal Cannula Nasal Cannula Nasal Cannula O2 Flow Rate 3.0 3.0 3.0 3.0 07/04/19 07/05/19 07/05/19 07/05/19 23:30 03:21 03:35 07:29 Temp 98.3 98.0 98.3 98.0 Pulse 80 72 Resp 20 20 B/P (MAP) 124/75 (91) 120/75 (90) Pulse Ox 95 94 96 96 O2 Delivery Nasal Cannula Nasal Cannula Nasal Cannula Nasal Cannula O2 Flow Rate 3.0 3.0 3.0 3.0 Intake and Output 07/04/19 07/04/19 07/05/19 15:00 23:00 07:00 Intake Total 500 ml 200 ml 550 ml Output Total 1 ml Balance 499 ml 200 ml 550 ml ZEB ASHLEY MD Jul 05, 2019 08:37
[2019-07-05] MEDS: FERROUS SULFATE ORAL 300 MG/5 ML SOLUTION. PO SCH ×2 (08:40→15:54)
[2019-07-05] MEDS: CLOPIDOGREL BISULFATE 75 MG TABLET PO SCH (08:41)
[2019-07-05] MEDS: PANTOPRAZOLE 40 MG TABLET.DR. PO SCH (08:41)
[2019-07-05] MEDS: ALPRAZolam 0.25 MG TABLET PO SCH (08:41)
[2019-07-05] MEDS: CETIRIZINE HCL 10 MG TABLET. PO SCH (08:41)
[2019-07-05] MEDS: LACTOBACILLUS RHAMNOSUS GG 1 CAPSULE. PO SCH ×2 (08:41→20:53)
[2019-07-05] MEDS: ASPIRIN ENTERIC COATED 81 MG TABLET.DR. PO SCH (08:41)
[2019-07-05] MEDS: AZITHROMYCIN 500 MG in IV NORMAL SALINE 250ML 250 ML IV SCH (08:41)
[2019-07-05] MEDS: POTASSIUM CHLORIDE 10 MEQ TABLET.ER. PO SCH (08:41)
[2019-07-05] MEDS: ENOXAPARIN 40 MG/0.4 ML SYRINGE. SQ SCH (08:41)
[2019-07-05] MEDS: FLUTICASONE 50MCG/NASAL SPRAY 16GM BOTTLE. NS SCH (08:42)
[2019-07-05] MEDS: cefTRIAXone IV Push 1 GM VIAL. IVP SCH (08:42)
--- NOTE | 2019-07-05 09:46 | PDOC ---
PULMONARY PROGRESS NOTES Subjective Pt. is resting on 3 liters, reports SOA on exertion, minimally productive cough with yellow/brown sputum. no overnight concerns Vitals Vital Signs Date Time Temp Pulse Resp B/P (MAP) Pulse Ox O2 Delivery O2 Flow Rate FiO2 07/05/19 07:29 96 Nasal Cannula 3.0 07/05/19 07:00 99.0 78 20 148/90 (109) 99.0 ROS: No Nausea, No Chest Pain, No Abdominal Pain General: Alert, Oriented X4 HEENT: Other Lungs: Wheezing Cardiovascular: S1, S2 Abdomen: Soft, Non-tender Extremities: Other (trace BLE edema ) Skin: Warm, Dry Labs Laboratory Tests Test 07/03/19 11:05 07/03/19 11:06 07/03/19 11:49 07/04/19 08:20 O2 Saturation 92 % (92-99) Arterial Blood pH 7.37 (7.35-7.45) Arterial Blood pCO2 at Patient Temp 61 mmHg (35-46) Arterial Blood pO2 at Patient Temp 62 mmHg (65-108) Arterial Blood HCO3 34 mmol/L (21-28) Arterial Blood Base Excess 7 mmol/L (-3-3) FiO2 28 White Blood Count 6.3 x10^3/uL (4.0-11.0) Red Blood Count 4.42 x10^6/uL (3.50-5.40) Hemoglobin 13.3 g/dL (12.0-15.5) Hematocrit 40.6 % (36.0-47.0) Mean Corpuscular Volume 92 fL (79-100) Mean Corpuscular Hemoglobin 30 pg (25-35) Mean Corpuscular Hemoglobin Concent 33 g/dL (31-37) Red Cell Distribution Width 13.5 % (11.5-14.5) Platelet Count 220 x10^3/uL (140-400) Neutrophils (%) (Auto) 53 % (31-73) Lymphocytes (%) (Auto) 26 % (24-48) Monocytes (%) (Auto) 13 % (0-9) Eosinophils (%) (Auto) 7 % (0-3) Basophils (%) (Auto) 1 % (0-3) Neutrophils # (Auto) 3.3 x10^3/uL (1.8-7.7) Lymphocytes # (Auto) 1.6 x10^3/uL (1.0-4.8) Monocytes # (Auto) 0.8 x10^3/uL (0.0-1.1) Eosinophils # (Auto) 0.4 x10^3/uL (0.0-0.7) Basophils # (Auto) 0.1 x10^3/uL (0.0-0.2) Prothrombin Time 13.3 SEC (11.7-14.0) Prothromb Time International Ratio 1.0 (0.8-1.1) Sodium Level 143 mmol/L (136-145) Potassium Level 3.8 mmol/L (3.5-5.1) Chloride Level 103 mmol/L (98-107) Carbon Dioxide Level 34 mmol/L (21-32) Anion Gap 6 (6-14) Blood Urea Nitrogen 11 mg/dL (7-20) Creatinine 0.8 mg/dL (0.6-1.0) Estimated GFR (Cockcroft-Gault) 88.2 BUN/Creatinine Ratio 14 (6-20) Glucose Level 103 mg/dL (70-99) Lactic Acid Level 0.8 mmol/L (0.4-2.0) Calcium Level 8.9 mg/dL (8.5-10.1) Magnesium Level 2.0 mg/dL (1.8-2.4) Total Bilirubin 0.3 mg/dL (0.2-1.0) Aspartate Amino Transf (AST/SGOT) 24 U/L (15-37) Alanine Aminotransferase (ALT/SGPT) 13 U/L (14-59) Alkaline Phosphatase 65 U/L (46-116) Creatine Kinase 760 U/L (26-192) Troponin I Quantitative < 0.017 ng/mL (0.000-0.055) < 0.017 ng/mL (0.000-0.055) EX-[id number]-[id number]-Type Natriuretic Peptide 144 pg/mL (0-124) Total Protein 7.0 g/dL (6.4-8.2) Albumin 3.8 g/dL (3.4-5.0) Albumin/Globulin Ratio 1.2 (1.0-1.7) Lipase 180 U/L (73-393) Influenza Type A Antigen Negative (NEGATIVE) Influenza Type B Antigen Negative (NEGATIVE) Medications Active Scripts Medications Dose Route/Sig Max Daily Dose Days Date Category Dose Instructions Prednisone 20 Mg Tablet 1 Tab PO DAILY 6 03/28/19 Rx take three pills daily for 2 days then two pills daily for 2 days then one pill daily for 2 days. Levaquin (Levofloxacin) 500 Mg Tablet 1 Tab PO DAILY 3 03/28/19 Rx [guaiFENesin/CODEINE 100mg/10mg] 5 ML Liquid 5 Ml PO PRN Q6HRS PRN 03/28/19 Rx Xanax (Alprazolam) 0.25 Mg Tablet 0.25 Mg PO BID 03/24/19 Reported Protonix (Pantoprazole Sodium) 20 Mg Tablet.dr 40 Mg PO DAILY 01/13/19 Reported Ferrous Sulfate 300 Mg/5 Ml Liquid 300 Mg PO BIDWMEALS 30 08/29/18 Rx Zoloft (Sertraline Hcl) 50 Mg Tablet 1 Tab PO HS 05/10/18 Reported Clopidogrel (Clopidogrel Bisulfate) 75 Mg Tablet 1 Tab PO DAILY 02/25/18 Reported Potassium Chloride (Potassium Chloride) 10 Meq Capsule.er 1 Cap PO DAILY 04/26/15 Rx Singulair Tablet (Montelukast Sodium) 10 Mg Tablet 1 Tab PO HS 04/27/14 Reported Lasix (Furosemide) 20 Mg Tablet 1 Tab PO DAILY16 04/27/14 Reported Symbicort 160-4.5 Mcg Inhaler (Budesonide/Formoterol Fumarate) 10.2 Gm Hfa.aer.ad 10.2 Gm IH BID 07/28/13 Reported Albuterol Sulfate Hfa Inhaler (Albuterol Sulfate) 8.5 Gm Hfa.aer.ad 8.5 Gm IH PRN 07/28/13 Reported Duoneb 0.5 Mg-3 Mg/3 Ml Soln (Ipratropium/Albuterol Sulfate) 3 Ml Ampul.neb 3 Ml IH QID 07/28/13 Reported Aspir 81 (Aspirin) 81 Mg Tablet.dr 81 Mg PO DAILY 07/28/13 Reported Impression . IMPRESSION: 1. Acute on chronic hypoxic respiratory failure secondary to acute exacerbation of chronic obstructive pulmonary disease and acute bronchitis. 2. Cough, combination of viral and possible bacterial bronchitis. 3. No definite consolidation seen on the chest x-ray. 4. ABGs with compensated hypercapnia. Plan . RECOMMENDATIONS: 1. Continue with present oxygen and gradually wean to keep saturations above 92% and wean to a baseline of 2 liters, currently requiring 3 liters N/C 2. Continue antibiotics. 3. DuoNebs/ Pulmicort/ p.o. steroids 4. Cough suppressant. 5. DVT PPX DW TRACEE ACKERMAN MD Jul 05, 2019 09:46
[2019-07-05 11:00] VITALS: BP 134/82
[2019-07-05] MEDS: predniSONE 20 MG TABLET PO SCH (11:47)
[2019-07-05 15:00] VITALS: BP 158/80
[2019-07-05] MEDS: guaiFENesin/CODEINE 100mg/10mg 5 ML LIQUID PO PRN (15:52)
[2019-07-05] MEDS: FUROSEMIDE 20 MG TABLET PO SCH (15:54)
--- NOTE | 2019-07-05 16:45 | NUR ---
pt transferred to room 556. Report called to WATSON Billings. Pt transported via wheelchair. All belongings left with patient at the time of transfer.
[2019-07-05 19:00] VITALS: BP 134/86
[2019-07-05] MEDS: MONTELUKAST SODIUM 10 MG TABLET. PO SCH (20:53)
[2019-07-05] MEDS: SERTRALINE 50 MG TABLET. PO SCH (20:53)
[2019-07-05] MEDS: ATORVASTATIN CALCIUM 40 MG TABLET. PO SCH (20:53)
[2019-07-05] MEDS ORDERED: ALPRAZolam 0.25 MG TABLET PO PRN (21:00)
[2019-07-05] MEDS: guaiFENesin ORAL 200 MG/10 ML LIQUID. PO PRN (22:08)
[2019-07-05 23:00] VITALS: BP 132/76
[2019-07-06 03:00] VITALS: BP 139/84
[2019-07-06] MEDS: IPRATRPIUM/ALBUTEROL 0.5/2.5MG 3 ML NEBU. NEB SCH ×5 (03:00→20:42)
[2019-07-06] MEDS: guaiFENesin ORAL 200 MG/10 ML LIQUID. PO PRN (05:07)
[2019-07-06 07:00] VITALS: BP 140/66
[2019-07-06] MEDS: BUDESONIDE 0.5 MG/2 ML NEBU. NEB SCH ×2 (07:13→20:42)
[2019-07-06] MEDS: guaiFENesin/CODEINE 100mg/10mg 5 ML LIQUID PO PRN ×2 (07:51→16:44)
[2019-07-06] MEDS: AZITHROMYCIN 250 MG TABLET. PO SCH (07:51)
[2019-07-06] MEDS: FERROUS SULFATE ORAL 300 MG/5 ML SOLUTION. PO SCH ×2 (07:51→16:44)
[2019-07-06] MEDS: CLOPIDOGREL BISULFATE 75 MG TABLET PO SCH (07:52)
[2019-07-06] MEDS: CETIRIZINE HCL 10 MG TABLET. PO SCH (07:52)
[2019-07-06] MEDS: POTASSIUM CHLORIDE 10 MEQ TABLET.ER. PO SCH (07:52)
[2019-07-06] MEDS: ENOXAPARIN 40 MG/0.4 ML SYRINGE. SQ SCH (07:52)
[2019-07-06] MEDS: ASPIRIN ENTERIC COATED 81 MG TABLET.DR. PO SCH (07:52)
[2019-07-06] MEDS: LACTOBACILLUS RHAMNOSUS GG 1 CAPSULE. PO SCH ×2 (07:52→21:06)
[2019-07-06] MEDS: predniSONE 20 MG TABLET PO SCH (07:52)
[2019-07-06] MEDS: PANTOPRAZOLE 40 MG TABLET.DR. PO SCH (07:53)
[2019-07-06] MEDS: FLUTICASONE 50MCG/NASAL SPRAY 16GM BOTTLE. NS SCH (08:14)
[2019-07-06] MEDS: cefTRIAXone IV Push 1 GM VIAL. IVP SCH (08:19)
--- NOTE | 2019-07-06 09:22 | PDOC ---
PROGRESS NOTES Chief Complaint Chief Complaint IMPRESSION Acute respiratory failure with hypercapnia ///AND HYPOXIC RESP FAILURE Acute exacerbation of COPD Atypical CP NEG TROPONIN I X 2 Abdominal pain -improving CAD - S/P PCI/MARLA to RCA 02/2018 Mild Cardiomyopathy - compensated HTN - controlled HLP - LDL not on goal Obesity ABDOMINAL DISCOMFORT STILL REQUIRES 3 LITER O2 History of Present Illness History of Present Illness Ms Stevens is a 59 yo F w/ PMHx hypertension, dyslipidemia, coronary artery disease status post CABG, COPD on 2 L of oxygen who presents with complaint of shortness of breath and cough. Cough that sometimes is productive with yellow and green sputum for the last 2 weeks associated with constant shortness of breath that getting worse with supine position and light activity. Also complaining of myalgia and subjective fever, sore throat and earache and denies vomiting, diarrhea, urinary symptoms, some left and right chest discomfort, RUQ PAIN AFTER MEALS NOTED NEW. CXR and RUQ US were relatively unrevealing. Influenza screen negative. ABG 7.37//62. Cardiology and pulmonology consulted. 07/04: Feeling more short of breath. Chest pain improved. RUQ pain improved. Now c/o nasal stuffiness, red itchy eyes and ear fullness bilaterally. Cough is tight. Abdominal pain has improved a bit. She is upset that she thinks she is being given a diuretic at night and states she wants more salt with her food, states "There is nothing wrong with my heart, I can eat what I want", is requesting regular diet. I have advised her that she does have CAD and prior RCA stenting in 2018. She is insistent on dietary liberalization Plan: IV steroids change to PO Change antibiotics to PO Added prn albuterol nebs F/u pulm recs and cardiology recs Normal ear and nasal examination Add antihistamine and nasal corticosteroid Cont to wean O2, Still on 3L, not at home dosing Vitals Vitals Vital Signs Date Time Temp Pulse Resp B/P (MAP) Pulse Ox O2 Delivery O2 Flow Rate FiO2 07/06/19 07:15 94 Nasal Cannula 3.0 07/06/19 07:00 98.2 81 16 140/66 (90) 98.2 Physical Exam General: Alert, Oriented X3, Cooperative, No acute distress Heart: Regular rate (SR), Normal S1, Normal S2, Other (unable to appreciate heart sounds due to adventitious sounds) Lungs: Wheezing Abdomen: Normal bowel sounds, Soft, No tenderness Extremities: No cyanosis, No edema Skin: No breakdown, No significant lesion Labs LABS Exam: Ultrasound abdomen complete Indication: Abdominal Technique: Real-time grayscale and color Doppler images of the abdomen were obtained by the department hardwood flooring specialist. Comparisons: 02/21/2019 FINDINGS: Liver demonstrates homogenous echotexture. Hepatopedal flow is noted within the portal vein. Gallbladder has a normal appearance without gallstones. Common bile duct measures 4 mm in diameter. Right kidney measures 10.3 cm in length. No hydronephrosis. Left kidney measures 10.2 cm in length. No hydronephrosis. Spleen is not well seen. Pancreas is not well visualized. Visualized portions of the aorta and IVC are unremarkable. IMPRESSION: 1. Normal sonographic appearance of the gallbladder. No evidence for acute cholecystitis. 2. Normal sonographic appearance of the liver 3. No hydronephrosis. 4. Evaluation of the spleen and pancreas are limited secondary to overlying bowel gas. Electronically signed by: Jesse Serrano MD (07/03/2019 9:46 PM) [facility] DICTATED and SIGNED BY: JESSE SERRANO MD DATE: 07/03/19 2146 PORTABLE CHEST 1V 07/03/2019 11:30 AM INDICATION: Shortness of breath COMPARISON: 03/27/2019 TECHNIQUE: Portable frontal view of the chest is provided. FINDINGS: The cardiomediastinal silhouette is similar in appearance. Stable prominence of the right hilum which most favors prominent pulmonary vasculature. Lungs are otherwise clear. There are no significant pleural effusions. There is no pulmonary vascular congestion. No pneumothorax. IMPRESSION: There is no acute cardiopulmonary process. Electronically signed by: Liang Saha MD (07/03/2019 12:19 PM) [facility] DICTATED and SIGNED BY: LIANG SAHA MD DATE: 07/03/19 1219 Visit Type * Pt Declined Attempted Visit Details * Aditya Rn, approved PT. Pt declined stating she has been coughing since she was up moving with staff and is not able to participate at this time. Will check back tomorrow. 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 Labs Microbiology 07/03/19 Blood Culture - Preliminary, Resulted NO GROWTH AFTER 2 DAYS Medications Current Medications Albuterol/ Ipratropium (Duoneb) 3 ml 1X ONCE NEB Last administered on 07/03/19at 11:28; Start 07/03/19 at 11:15; Stop 07/03/19 at 11:16; Status DC Methylprednisolone Sodium Succinate (SOLU-Medrol 125MG VIAL) 125 mg 1X ONCE IV Last administered on 07/03/19at 12:36; Start 07/03/19 at 11:15; Stop 07/03/19 at 11:16; Status DC Sodium Chloride 1,000 ml @ 100 mls/hr Q10H IV Last administered on 07/04/19at 08:17; Start 07/03/19 at 12:18; Stop 07/04/19 at 12:17; Status DC Ceftriaxone Sodium (Rocephin) 1 gm 1X ONCE IVP Last administered on 07/03/19at 12:35; Start 07/03/19 at 12:30; Stop 07/03/19 at 12:31; Status DC Alprazolam (Xanax) 0.25 mg BID PO Last administered on 07/05/19at 08:41; Start 07/03/19 at 21:00; Stop 07/05/19 at 09:39; Status DC Aspirin (Ecotrin) 81 mg DAILYWBKFT PO Last administered on 07/06/19at 07:52; Start 07/04/19 at 08:00 Clopidogrel Bisulfate (Plavix) 75 mg DAILYWBKFT PO Last administered on at 07:52; Start 07/04/19 at 08:00 Ferrous Sulfate (Iron Oral Solution) 300 mg BIDWMEALS PO Last administered on 07/06/19at 07:51; Start 07/03/19 at 17:00 Furosemide (Lasix) 20 mg DAILY16 PO Last administered on 07/05/19at 15:54; Start 07/03/19 at 16:00 Albuterol/ Ipratropium (Duoneb) 3 ml RTQID IH ; Start 07/03/19 at 16:00; Status UNV Montelukast Sodium (Singulair) 10 mg HS PO Last administered on 07/05/19 20:53; Start 07/03/19 at 21:00 Potassium Chloride (Klor-Con) 10 meq DAILYWBKFT PO Last administered on 07/06/19 07:52; Start 07/04/19 at 08:00 Sertraline HCl (Zoloft) 50 mg HS PO Last administered on 07/05/19 20:53; Star t 07/03/19 at 21:00 Budesonide (Pulmicort) 0.5 mg RTBID NEB Last administered on 07/06/19 07:13; Start 07/03/19 at 20:00 Pantoprazole Sodium (Protonix) 40 mg DAILYAC PO Last administered on 07/06/19 07:53; Start 07/04/19 at 07:30 Guaifenesin/ Codeine Phosphate (Robitussin Ac) 5 ml PRN Q6HRS PRN PO COUGH, 2ND CHOICE Last administered on 07/06/19 07:51; Start 07/03/19 at 15:15 Sodium Chloride (Normal Saline Flush) 3 ml QSHIFT PRN IV AFTER MEDS AND BLOOD DRAWS; Start 07/03/19 at 15:00 Ondansetron HCl (Zofran) 4 mg PRN Q4HRS PRN IV NAUSEA/VOMITING; Start 07/03/19 at 15:00 Acetaminophen (Tylenol) 650 mg PRN Q4HRS PRN PO TEMP OVER 100.4F OR MILD PAIN; Start 07/03/19 at 15:00 Al Hydroxide/Mg Hydroxide (Mylanta Plus Xs) 30 ml PRN DAILY PRN PO HEARTBURN / GAS; Start 07/03/19 at 15:00 Clonidine HCl (Catapres) 0.1 mg PRN Q6HRS PRN PO SBP>160 OR DBP>90; Start 07/03/19 at 15:00 Docusate Sodium (Colace) 100 mg PRN BID PRN PO CONSTIPATION; Start 07/03/19 at 15:00 Albuterol/ Ipratropium (Duoneb) 3 ml Q4H NEB Last administered on 07/06/19 07:13; Start 07/03/19 at 15:00 Guaifenesin (Robitussin) 200 mg PRN Q4HRS PRN PO COUGH, 1ST CHOICE Last administered on 07/06/19at 05:07; Start 07/03/19 at 15:00 Enoxaparin Sodium (Lovenox 40mg Syringe) 40 mg DAILY SQ Last administered on 07/06/19at 07:52; Start 07/04/19 at 09:00 Levofloxacin/ Dextrose 100 ml @ 100 mls/hr Q24H IV ; Start 07/03/19 at 15:00; Status UNV Azithromycin 500 mg/Sodium Chloride 250 ml @ 250 mls/hr DAILY IV Last administered on 07/05/19at 08:41; Start 07/03/19 at 16:00; Stop 07/05/19 at 09:43; Status DC Ceftriaxone Sodium (Rocephin) 1 gm DAILY IVP Last administered on 07/06/19at 08:19; Start 07/04/19 at 09:00 Albuterol Sulfate (Ventolin Neb Soln) 2.5 mg PRN Q4HRS PRN NEB SHORTNESS OF BREATH; Start 07/04/19 at 11:00 Methylprednisolone Sodium Succinate (SOLU-Medrol 40MG VIAL) 40 mg Q8HRS IV Last administered on 07/05/19at 06:13; Start 07/04/19 at 12:00; Stop 07/05/19 at 09:39; Status DC Fluticasone Propionate (Flonase) 2 spray DAILY NS Last administered on 07/06/19at 08:14; Start 07/04/19 at 11:00 Cetirizine HCl (ZyrTEC) 10 mg DAILY PO Last administered on 07/06/19at 07:52; Start 07/04/19 at 11:00 Atorvastatin Calcium (Lipitor) 40 mg QHS PO Last administered on 07/05/19at 20:53; Start 07/04/19 at 21:00 Lactobacillus Rhamnosus (Culturelle) 1 cap BID PO Last administered on 07/06/19at 07:52; Start 07/04/19 at 21:00 Alprazolam (Xanax) 0.25 mg PRN BID PRN PO anxiety; Start 07/05/19 at 21:00 Prednisone (Prednisone) 20 mg DAILY PO Last administered on 07/06/19at 07:52; Start 07/05/19 at 10:00 Azithromycin (Zithromax) 250 mg DAILY PO Last administered on 07/06/19at 07:51; Start 07/06/19 at 09:00 Active Scripts Active Prednisone 20 Mg Tablet 1 Tab PO DAILY 6 Days take three pills daily for 2 days then two pills daily for 2 days then one pill daily for 2 days. Levaquin (Levofloxacin) 500 Mg Tablet 1 Tab PO DAILY 3 Days [guaiFENesin/CODEINE 100mg/10mg] 5 ML Liquid 5 Ml PO PRN Q6HRS PRN Ferrous Sulfate 300 Mg/5 Ml Liquid 300 Mg PO BIDWMEALS 30 Days Potassium Chloride (Potassium Chloride) 10 Meq Capsule.er 1 Cap PO DAILY Reported Xanax (Alprazolam) 0.25 Mg Tablet 0.25 Mg PO BID Protonix (Pantoprazole Sodium) 20 Mg Tablet.dr 40 Mg PO DAILY Zoloft (Sertraline Hcl) 50 Mg Tablet 1 Tab PO HS Clopidogrel (Clopidogrel Bisulfate) 75 Mg Tablet 1 Tab PO DAILY Singulair Tablet (Montelukast Sodium) 10 Mg Tablet 1 Tab PO HS Lasix (Furosemide) 20 Mg Tablet 1 Tab PO DAILY16 Symbicort 160-4.5 Mcg Inhaler (Budesonide/Formoterol Fumarate) 10.2 Gm Hfa.aer.ad 10.2 Gm IH BID Albuterol Sulfate Hfa Inhaler (Albuterol Sulfate) 8.5 Gm Hfa.aer.ad 8.5 Gm IH PRN Duoneb 0.5 Mg-3 Mg/3 Ml Soln (Ipratropium/Albuterol Sulfate) 3 Ml Ampul.neb 3 Ml IH QID Aspir 81 (Aspirin) 81 Mg Tablet.dr 81 Mg PO DAILY Vitals/I & O Vital Sign - Last 24 Hours 07/05/19 07/05/19 07/05/19 07/05/19 11:00 12:43 15:00 19:00 Temp 98.5 98.7 98.5 98.5 98.7 98.5 Pulse 66 101 92 Resp 18 20 18 B/P (MAP) 134/82 (99) 158/80 (106) 134/86 (102) Pulse Ox 94 96 93 94 O2 Delivery Nasal Cannula Nasal Cannula Nasal Cannula O2 Flow Rate 3.0 3.0 3.0 07/05/19 07/05/19 07/05/19 07/05/19 19:53 19:54 20:02 23:00 Temp 98.7 98.7 Pulse 78 Resp 16 B/P (MAP) 132/76 (94) Pulse Ox 96 96 96 O2 Delivery Nasal Cannula Nasal Cannula Nasal Cannula O2 Flow Rate 3.0 3.0 3.0 07/05/19 07/06/19 07/06/19 07/06/19 23:57 03:00 03:01 07:00 Temp 98.4 98.2 98.4 98.2 Pulse 81 81 Resp 18 16 B/P (MAP) 139/84 (102) 140/66 (90) Pulse Ox 96 99 97 92 O2 Delivery Nasal Cannula Nasal Cannula Nasal Cannula O2 Flow Rate 3.0 3.0 3.0 07/06/19 07:15 Pulse Ox 94 O2 Delivery Nasal Cannula O2 Flow Rate 3.0 Intake and Output 07/05/19 07/05/19 07/06/19 15:00 23:00 07:00 Intake Total 240 ml Output Total 1 ml Balance 240 ml -1 ml CORWIN FLOREZ MD Jul 06, 2019 09:22
--- NOTE | 2019-07-06 10:40 | PDOC ---
PULMONARY PROGRESS NOTES Subjective Pt. is resting on 3 liters, reports SOA on exertion, non-productive cough no overnight concerns Vitals Vital Signs Date Time Temp Pulse Resp B/P (MAP) Pulse Ox O2 Delivery O2 Flow Rate FiO2 07/06/19 07:15 94 Nasal Cannula 3.0 07/06/19 07:00 98.2 81 16 140/66 (90) 98.2 ROS: No Nausea, No Chest Pain, No Abdominal Pain, No Increase Cough General: Alert, Oriented X4 Lungs: Wheezing Cardiovascular: S1, S2 Abdomen: Soft, Non-tender Extremities: Other (trace BLE edema ) Skin: Warm, Dry Medications Active Scripts Medications Dose Route/Sig Max Daily Dose Days Date Category Dose Instructions Prednisone 20 Mg Tablet 1 Tab PO DAILY 6 03/28/19 Rx take three pills daily for 2 days then two pills daily for 2 days then one pill daily for 2 days. Levaquin (Levofloxacin) 500 Mg Tablet 1 Tab PO DAILY 3 03/28/19 Rx [guaiFENesin/CODEINE 100mg/10mg] 5 ML Liquid 5 Ml PO PRN Q6HRS PRN 03/28/19 Rx Xanax (Alprazolam) 0.25 Mg Tablet 0.25 Mg PO BID 03/24/19 Reported Protonix (Pantoprazole Sodium) 20 Mg Tablet.dr 40 Mg PO DAILY 01/13/19 Reported Ferrous Sulfate 300 Mg/5 Ml Liquid 300 Mg PO BIDWMEALS 30 08/29/18 Rx Zoloft (Sertraline Hcl) 50 Mg Tablet 1 Tab PO HS 05/10/18 Reported Clopidogrel (Clopidogrel Bisulfate) 75 Mg Tablet 1 Tab PO DAILY 02/25/18 Reported Potassium Chloride (Potassium Chloride) 10 Meq Capsule.er 1 Cap PO DAILY 04/26/15 Rx Singulair Tablet (Montelukast Sodium) 10 Mg Tablet 1 Tab PO HS 04/27/14 Reported Lasix (Furosemide) 20 Mg Tablet 1 Tab PO DAILY16 04/27/14 Reported Symbicort 160-4.5 Mcg Inhaler (Budesonide/Formoterol Fumarate) 10.2 Gm Hfa.aer.ad 10.2 Gm IH BID 07/28/13 Reported Albuterol Sulfate Hfa Inhaler (Albuterol Sulfate) 8.5 Gm Hfa.aer.ad 8.5 Gm IH PRN 07/28/13 Reported Duoneb 0.5 Mg-3 Mg/3 Ml Soln (Ipratropium/Albuterol Sulfate) 3 Ml Ampul.neb 3 Ml IH QID 07/28/13 Reported Aspir 81 (Aspirin) 81 Mg Tablet.dr 81 Mg PO DAILY 07/28/13 Reported Impression . IMPRESSION: 1. Acute on chronic hypoxic respiratory failure secondary to acute exacerbation of chronic obstructive pulmonary disease and acute bronchitis. 2. Cough, combination of viral and possible bacterial bronchitis. 3. No definite consolidation seen on the chest x-ray. 4. ABGs with compensated hypercapnia. Plan . RECOMMENDATIONS: 1. Continue with present oxygen and gradually wean to keep saturations above 92% and wean to a baseline of 2 liters, currently requiring 3 liters N/C 2. Continue antibiotics. 3. DuoNebs/ Pulmicort/ p.o. steroids 4. Cough suppressant. 5. DVT PPX 6. nasal spray for nasal congestion TRACEE HAGAN RN, MD Jul 06, 2019 10:40
[2019-07-06 11:00] VITALS: BP 179/83
[2019-07-06 12:43] LABS: BASO % 0 % (0-3); EOS % 0 % (0-3); HEMOGLOBIN 12.7 g/dL (12.0-15.5); LYMPH # 0.9 x10^3/uL (1.0-4.8); LYMPH % 12 % (24-48); MEAN CORPUSCULAR HEMOGLOBIN 30 pg (25-35); MEAN CORPUSCULAR HGB CONC 33 g/dL (31-37); MEAN CORPUSCULAR VOLUME 92 fL (79-100); MONO # 0.5 x10^3/uL (0.0-1.1); MONO % 7 % (0-9); NEUT # 6.3 x10^3/uL (1.8-7.7); NEUT % 81 % (31-73); PLATELET COUNT 219 x10^3/uL (140-400); RED BLOOD COUNT 4.22 x10^6/uL (3.50-5.40); RED CELL DISTRIBUTION WIDTH 13.5 % (11.5-14.5); WHITE BLOOD COUNT 7.8 x10^3/uL (4.0-11.0)
--- NOTE | 2019-07-06 12:47 | NUR ---
SW following. Discussed with RN, pt has oxygen at home. PT/OT recommending home health. Gian Lucero RN met with pt, pt is agreeable to home health and accepted by Gian. Plan to discharge home with [facility] RN notified.
[2019-07-06 12:53] LABS: CALCIUM 8.8 mg/dL (8.5-10.1); GFR 68.2; POTASSIUM 3.9 mmol/L (3.5-5.1)
[2019-07-06 15:00] VITALS: BP 163/94
[2019-07-06] MEDS: FUROSEMIDE 20 MG TABLET PO SCH (16:43)
[2019-07-06 19:00] VITALS: BP 145/97
[2019-07-06] MEDS: ATORVASTATIN CALCIUM 40 MG TABLET. PO SCH (21:06)
[2019-07-06] MEDS: SERTRALINE 50 MG TABLET. PO SCH (21:06)
[2019-07-06] MEDS: MONTELUKAST SODIUM 10 MG TABLET. PO SCH (21:07)
[2019-07-06 23:00] VITALS: BP 148/94
[2019-07-07] MEDS: IPRATRPIUM/ALBUTEROL 0.5/2.5MG 3 ML NEBU. NEB SCH ×7 (00:04→20:57)
[2019-07-07 03:08] VITALS: BP 111/70
[2019-07-07 07:00] VITALS: BP 125/88
[2019-07-07] MEDS: BUDESONIDE 0.5 MG/2 ML NEBU. NEB SCH ×2 (07:18→20:57)
--- NOTE | 2019-07-07 07:49 | PDOC ---
PROGRESS NOTES Chief Complaint Chief Complaint A/P: Acute respiratory failure with hypercapnia ///AND HYPOXIC RESP FAILURE Acute exacerbation of COPD Atypical CP NEG TROPONIN I X 2 Abdominal pain -improving CAD - S/P PCI/MARLA to RCA 02/2018 Mild Cardiomyopathy - compensated HTN - controlled HLP - LDL not on goal Obesity ABDOMINAL DISCOMFORT History of Present Illness History of Present Illness Ms Stevens is a 59 yo F w/ PMHx hypertension, dyslipidemia, coronary artery disease status post CABG, COPD on 2 L of oxygen who presents with complaint of shortness of breath and cough. Cough that sometimes is productive with yellow and green sputum for the last 2 weeks associated with constant shortness of breath that getting worse with supine position and light activity. Also complaining of myalgia and subjective fever, sore throat and earache and denies vomiting, diarrhea, urinary symptoms, some left and right chest discomfort, RUQ PAIN AFTER MEALS NOTED NEW. CXR and RUQ US were relatively unrevealing. Influenza screen negative. ABG 7.37//62. Cardiology and pulmonology consulted. 07/04: Feeling more short of breath. Chest pain improved. RUQ pain improved. Now c/o nasal stuffiness, red itchy eyes and ear fullness bilaterally. Cough is tight. 07/06: STILL REQUIRES 3 LITER O2. She is upset that she thinks she is being given a diuretic at night and states she wants more salt with her food, states "There is nothing wrong with my heart, I can eat what I want", is requesting regular diet. I have advised her that she does have CAD and prior RCA stenting in 2018. She is insistent on dietary liberalization Abdominal pain has improved a bit. Now c/o right posterior neck pain and spasms and new left lower leg swelling and pain, particularly in the calf. SOB improved, still with cough. No CP. Plan: IV steroids change to PO Change antibiotics to PO Added prn albuterol nebs F/u pulm recs and cardiology recs Added antihistamine and nasal corticosteroid Cont to wean O2, Still on 3L, not at home dosing LLE DVT study Lidoderm and tizanidine for neck spasms Vitals Vitals Vital Signs Date Time Temp Pulse Resp B/P (MAP) Pulse Ox O2 Delivery O2 Flow Rate FiO2 07/07/19 07:19 95 Nasal Cannula 3.0 07/07/19 03:08 97.9 80 20 111/70 (84) 97.9 Physical Exam General: Alert, Oriented X3, Cooperative, No acute distress Heart: Regular rate (SR), Normal S1, Normal S2, Other (unable to appreciate heart sounds due to adventitious sounds) Lungs: Wheezing Abdomen: Normal bowel sounds, Soft, No tenderness Extremities: No cyanosis, No edema Skin: No breakdown, No significant lesion Labs LABS Laboratory Tests Test 07/06/19 11:50 White Blood Count 7.8 x10^3/uL (4.0-11.0) Red Blood Count 4.22 x10^6/uL (3.50-5.40) Hemoglobin 12.7 g/dL (12.0-15.5) Hematocrit 39.0 % (36.0-47.0) Mean Corpuscular Volume 92 fL (79-100) Mean Corpuscular Hemoglobin 30 pg (25-35) Mean Corpuscular Hemoglobin Concent 33 g/dL (31-37) Red Cell Distribution Width 13.5 % (11.5-14.5) Platelet Count 219 x10^3/uL (140-400) Neutrophils (%) (Auto) 81 % (31-73) Lymphocytes (%) (Auto) 12 % (24-48) Monocytes (%) (Auto) 7 % (0-9) Eosinophils (%) (Auto) 0 % (0-3) Basophils (%) (Auto) 0 % (0-3) Neutrophils # (Auto) 6.3 x10^3/uL (1.8-7.7) Lymphocytes # (Auto) 0.9 x10^3/uL (1.0-4.8) Monocytes # (Auto) 0.5 x10^3/uL (0.0-1.1) Eosinophils # (Auto) 0.0 x10^3/uL (0.0-0.7) Basophils # (Auto) 0.0 x10^3/uL (0.0-0.2) Sodium Level 146 mmol/L (136-145) Potassium Level 3.9 mmol/L (3.5-5.1) Chloride Level 106 mmol/L (98-107) Carbon Dioxide Level 39 mmol/L (21-32) Anion Gap 1 (6-14) Blood Urea Nitrogen 11 mg/dL (7-20) Creatinine 1.0 mg/dL (0.6-1.0) Estimated GFR (Cockcroft-Gault) 68.2 Glucose Level 104 mg/dL (70-99) Calcium Level 8.8 mg/dL (8.5-10.1) Comment Review of Relevant I have reviewed the following items paulette (where applicable) has been applied. Labs Laboratory Tests Test 07/06/19 11:50 White Blood Count 7.8 x10^3/uL (4.0-11.0) Red Blood Count 4.22 x10^6/uL (3.50-5.40) Hemoglobin 12.7 g/dL (12.0-15.5) Hematocrit 39.0 % (36.0-47.0) Mean Corpuscular Volume 92 fL (79-100) Mean Corpuscular Hemoglobin 30 pg (25-35) Mean Corpuscular Hemoglobin Concent 33 g/dL (31-37) Red Cell Distribution Width 13.5 % (11.5-14.5) Platelet Count 219 x10^3/uL (140-400) Neutrophils (%) (Auto) 81 % (31-73) Lymphocytes (%) (Auto) 12 % (24-48) Monocytes (%) (Auto) 7 % (0-9) Eosinophils (%) (Auto) 0 % (0-3) Basophils (%) (Auto) 0 % (0-3) Neutrophils # (Auto) 6.3 x10^3/uL (1.8-7.7) Lymphocytes # (Auto) 0.9 x10^3/uL (1.0-4.8) Monocytes # (Auto) 0.5 x10^3/uL (0.0-1.1) Eosinophils # (Auto) 0.0 x10^3/uL (0.0-0.7) Basophils # (Auto) 0.0 x10^3/uL (0.0-0.2) Sodium Level 146 mmol/L (136-145) Potassium Level 3.9 mmol/L (3.5-5.1) Chloride Level 106 mmol/L (98-107) Carbon Dioxide Level 39 mmol/L (21-32) Anion Gap 1 (6-14) Blood Urea Nitrogen 11 mg/dL (7-20) Creatinine 1.0 mg/dL (0.6-1.0) Estimated GFR (Cockcroft-Gault) 68.2 Glucose Level 104 mg/dL (70-99) Calcium Level 8.8 mg/dL (8.5-10.1) Laboratory Tests Test 07/06/19 11:50 White Blood Count 7.8 x10^3/uL (4.0-11.0) Red Blood Count 4.22 x10^6/uL (3.50-5.40) Hemoglobin 12.7 g/dL (12.0-15.5) Hematocrit 39.0 % (36.0-47.0) Mean Corpuscular Volume 92 fL (79-100) Mean Corpuscular Hemoglobin 30 pg (25-35) Mean Corpuscular Hemoglobin Concent 33 g/dL (31-37) Red Cell Distribution Width 13.5 % (11.5-14.5) Platelet Count 219 x10^3/uL (140-400) Neutrophils (%) (Auto) 81 % (31-73) Lymphocytes (%) (Auto) 12 % (24-48) Monocytes (%) (Auto) 7 % (0-9) Eosinophils (%) (Auto) 0 % (0-3) Basophils (%) (Auto) 0 % (0-3) Neutrophils # (Auto) 6.3 x10^3/uL (1.8-7.7) Lymphocytes # (Auto) 0.9 x10^3/uL (1.0-4.8) Monocytes # (Auto) 0.5 x10^3/uL (0.0-1.1) Eosinophils # (Auto) 0.0 x10^3/uL (0.0-0.7) Basophils # (Auto) 0.0 x10^3/uL (0.0-0.2) Sodium Level 146 mmol/L (136-145) Potassium Level 3.9 mmol/L (3.5-5.1) Chloride Level 106 mmol/L (98-107) Carbon Dioxide Level 39 mmol/L (21-32) Anion Gap 1 (6-14) Blood Urea Nitrogen 11 mg/dL (7-20) Creatinine 1.0 mg/dL (0.6-1.0) Estimated GFR (Cockcroft-Gault) 68.2 Glucose Level 104 mg/dL (70-99) Calcium Level 8.8 mg/dL (8.5-10.1) Microbiology 07/03/19 Blood Culture - Preliminary, Resulted NO GROWTH AFTER 3 DAYS Medications Current Medications Albuterol/ Ipratropium (Duoneb) 3 ml 1X ONCE NEB Last administered on 07/03/19at 11:28; Start 07/03/19 at 11:15; Stop 07/03/19 at 11:16; Status DC Methylprednisolone Sodium Succinate (SOLU-Medrol 125MG VIAL) 125 mg 1X ONCE IV Last administered on 07/03/19at 12:36; Start 07/03/19 at 11:15; Stop 07/03/19 at 11:16; Status DC Sodium Chloride 1,000 ml @ 100 mls/hr Q10H IV Last administered on 07/04/19at 08:17; Start 07/03/19 at 12:18; Stop 07/04/19 at 12:17; Status DC Ceftriaxone Sodium (Rocephin) 1 gm 1X ONCE IVP Last administered on 07/03/19at 12:35; Start 07/03/19 at 12:30; Stop 07/03/19 at 12:31; Status DC Alprazolam (Xanax) 0.25 mg BID PO Last administered on 07/05/19at 08:41; Start 07/03/19 at 21:00; Stop 07/05/19 at 09:39; Status DC Aspirin (Ecotrin) 81 mg DAILYWBKFT PO Last administered on 07/06/19at 07:52; Start 07/04/19 at 08:00 Clopidogrel Bisulfate (Plavix) 75 mg DAILYWBKFT PO Last administered on 07/06/19at 07:52; Start 07/04/19 at 08:00 Ferrous Sulfate (Iron Oral Solution) 300 mg BIDWMEALS PO Last administered on 07/06/19at 16:44; Start 07/03/19 at 17:00 Furosemide (Lasix) 20 mg DAILY16 PO Last administered on 07/06/19at 16:43; Start 07/03/19 at 16:00 Albuterol/ Ipratropium (Duoneb) 3 ml RTQID IH ; Start 07/03/19 at 16:00; Status UNV Montelukast Sodium (Singulair) 10 mg HS PO Last administered on 07/06/19 21:07; Start 07/03/19 at 21:00 Potassium Chloride (Klor-Con) 10 meq DAILYWBKFT PO Last administered on 07/06/19 07:52; Start 07/04/19 at 08:00 Sertraline HCl (Zoloft) 50 mg HS PO Last administered on 07/06/19 21:06; Start 07/03/19 at 21:00 Budesonide (Pulmicort) 0.5 mg RTBID NEB Last administered on 07/07/19 07:18; Start 07/03/19 at 20:00 Pantoprazole Sodium (Protonix) 40 mg DAILYAC PO Last administered on 07/06/19 07:53; Start 07/04/19 at 07:30 Guaifenesin/ Codeine Phosphate (Robitussin Ac) 5 ml PRN Q6HRS PRN PO COUGH, 2ND CHOICE Last administered on 07/06/19at 16:44; Start 07/03/19 at 15:15 Sodium Chloride (Normal Saline Flush) 3 ml QSHIFT PRN IV AFTER MEDS AND BLOOD DRAWS; Start 07/03/19 at 15:00 Ondansetron HCl (Zofran) 4 mg PRN Q4HRS PRN IV NAUSEA/VOMITING; Start 07/03/19 at 15:00 Acetaminophen (Tylenol) 650 mg PRN Q4HRS PRN PO TEMP OVER 100.4F OR MILD PAIN; Start 07/03/19 at 15:00 Al Hydroxide/Mg Hydroxide (Mylanta Plus Xs) 30 ml PRN DAILY PRN PO HEARTBURN / GAS; Start 07/03/19 at 15:00 Clonidine HCl (Catapres) 0.1 mg PRN Q6HRS PRN PO SBP>160 OR DBP>90; Start 07/03/19 at 15:00 Docusate Sodium (Colace) 100 mg PRN BID PRN PO CONSTIPATION; Start 07/03/19 at 15:00 Albuterol/ Ipratropium (Duoneb) 3 ml Q4H NEB Last administered on 07/07/19 07:18; Start 07/03/19 at 15:00 Guaifenesin (Robitussin) 200 mg PRN Q4HRS PRN PO COUGH, 1ST CHOICE Last administered on 07/06/19at 05:07; Start 07/03/19 at 15:00 Enoxaparin Sodium (Lovenox 40mg Syringe) 40 mg DAILY SQ Last administered on 07/06/19at 07:52; Start 07/04/19 at 09:00 Levofloxacin/ Dextrose 100 ml @ 100 mls/hr Q24H IV ; Start 07/03/19 at 15:00; Status UNV Azithromycin 500 mg/Sodium Chloride 250 ml @ 250 mls/hr DAILY IV Last administered on 07/05/19at 08:41; Start 07/03/19 at 16:00; Stop 07/05/19 at 09:43; Status DC Ceftriaxone Sodium (Rocephin) 1 gm DAILY IVP Last administered on 07/06/19at 08:19; Start 07/04/19 at 09:00 Albuterol Sulfate (Ventolin Neb Soln) 2.5 mg PRN Q4HRS PRN NEB SHORTNESS OF BREATH; Start 07/04/19 at 11:00 Methylprednisolone Sodium Succinate (SOLU-Medrol 40MG VIAL) 40 mg Q8HRS IV Last administered on 07/05/19at 06:13; Start 07/04/19 at 12:00; Stop 07/05/19 at 09:39; Status DC Fluticasone Propionate (Flonase) 2 spray DAILY NS Last administered on 07/06/19at 08:14; Start 07/04/19 at 11:00 Cetirizine HCl (ZyrTEC) 10 mg DAILY PO Last administered on 07/06/19at 07:52; Start 07/04/19 at 11:00 Atorvastatin Calcium (Lipitor) 40 mg QHS PO Last administered on 07/06/19at 21:06; Start 07/04/19 at 21:00 Lactobacillus Rhamnosus (Culturelle) 1 cap BID PO Last administered on 07/06/19at 21:06; Start 07/04/19 at 21:00 Alprazolam (Xanax) 0.25 mg PRN BID PRN PO anxiety; Start 07/05/19 at 21:00 Prednisone (Prednisone) 20 mg DAILY PO Last administered on 07/06/19at 07:52; Start 07/05/19 at 10:00 Azithromycin (Zithromax) 250 mg DAILY PO Last administered on 07/06/19at 07:51; Start 07/06/19 at 09:00 Active Scripts Active Prednisone 20 Mg Tablet 1 Tab PO DAILY 6 Days take three pills daily for 2 days then two pills daily for 2 days then one pill daily for 2 days. Levaquin (Levofloxacin) 500 Mg Tablet 1 Tab PO DAILY 3 Days [guaiFENesin/CODEINE 100mg/10mg] 5 ML Liquid 5 Ml PO PRN Q6HRS PRN Ferrous Sulfate 300 Mg/5 Ml Liquid 300 Mg PO BIDWMEALS 30 Days Potassium Chloride (Potassium Chloride) 10 Meq Capsule.er 1 Cap PO DAILY Reported Xanax (Alprazolam) 0.25 Mg Tablet 0.25 Mg PO BID Protonix (Pantoprazole Sodium) 20 Mg Tablet.dr 40 Mg PO DAILY Zoloft (Sertraline Hcl) 50 Mg Tablet 1 Tab PO HS Clopidogrel (Clopidogrel Bisulfate) 75 Mg Tablet 1 Tab PO DAILY Singulair Tablet (Montelukast Sodium) 10 Mg Tablet 1 Tab PO HS Lasix (Furosemide) 20 Mg Tablet 1 Tab PO DAILY16 Symbicort 160-4.5 Mcg Inhaler (Budesonide/Formoterol Fumarate) 10.2 Gm Hfa.aer.ad 10.2 Gm IH BID Albuterol Sulfate Hfa Inhaler (Albuterol Sulfate) 8.5 Gm Hfa.aer.ad 8.5 Gm IH PRN Duoneb 0.5 Mg-3 Mg/3 Ml Soln (Ipratropium/Albuterol Sulfate) 3 Ml Ampul.neb 3 Ml IH QID Aspir 81 (Aspirin) 81 Mg Tablet.dr 81 Mg PO DAILY Vitals/I & O Vital Sign - Last 24 Hours 07/06/19 07/06/19 07/06/19 07/06/19 08:00 11:00 12:26 15:00 Temp 98.1 98.0 98.1 98.0 Pulse 76 74 Resp 16 16 B/P (MAP) 179/83 (115) 163/94 (117) Pulse Ox 95 96 O2 Delivery Nasal Cannula Nasal Cannula Nasal Cannula Nasal Cannula O2 Flow Rate 3.0 3.0 3.0 3.0 07/06/19 07/06/19 07/06/19 07/06/19 15:57 19:00 19:45 20:41 Temp 98.7 98.7 Pulse 76 Resp 20 B/P (MAP) 145/97 (113) Pulse Ox 98 96 O2 Delivery Nasal Cannula Nasal Cannula Nasal Cannula Nasal Cannula O2 Flow Rate 3.0 3.0 3.0 07/06/19 07/07/19 07/07/19 07/07/19 23:00 00:03 03:08 03:50 Temp 98.5 97.9 98.5 97.9 Pulse 88 80 Resp 20 20 B/P (MAP) 148/94 (112) 111/70 (84) Pulse Ox 97 96 O2 Delivery Nasal Cannula Nasal Cannula Nasal Cannula Nasal Cannula O2 Flow Rate 3.0 3.0 07/07/19 07:19 Pulse Ox 95 O2 Delivery Nasal Cannula O2 Flow Rate 3.0 Intake and Output 07/06/19 07/06/19 07/07/19 15:00 23:00 07:00 Intake Total 240 ml Balance 240 ml ZEB ASHLEY MD Jul 07, 2019 07:49
[2019-07-07] MEDS: cefTRIAXone IV Push 1 GM VIAL. IVP SCH (09:00)
[2019-07-07] MEDS: FERROUS SULFATE ORAL 300 MG/5 ML SOLUTION. PO SCH (09:34)
[2019-07-07] MEDS: ASPIRIN ENTERIC COATED 81 MG TABLET.DR. PO SCH (09:35)
[2019-07-07] MEDS: predniSONE 20 MG TABLET PO SCH (09:35)
[2019-07-07] MEDS: guaiFENesin/CODEINE 100mg/10mg 5 ML LIQUID PO PRN ×2 (09:35→23:29)
[2019-07-07] MEDS: CLOPIDOGREL BISULFATE 75 MG TABLET PO SCH (09:35)
[2019-07-07] MEDS: LACTOBACILLUS RHAMNOSUS GG 1 CAPSULE. PO SCH ×2 (09:35→21:05)
[2019-07-07] MEDS: ENOXAPARIN 40 MG/0.4 ML SYRINGE. SQ SCH (09:35)
[2019-07-07] MEDS: PANTOPRAZOLE 40 MG TABLET.DR. PO SCH (09:36)
[2019-07-07] MEDS: CETIRIZINE HCL 10 MG TABLET. PO SCH (09:36)
[2019-07-07] MEDS: AZITHROMYCIN 250 MG TABLET. PO SCH (09:36)
[2019-07-07] MEDS: POTASSIUM CHLORIDE 10 MEQ TABLET.ER. PO SCH (09:36)
[2019-07-07] MEDS: FLUTICASONE 50MCG/NASAL SPRAY 16GM BOTTLE. NS SCH (09:38)
--- NOTE | 2019-07-07 09:51 | PDOC ---
PULMONARY PROGRESS NOTES Subjective Pt. is resting on 3 liters, reports SOA on exertion, non-productive cough no overnight concerns Vitals Vital Signs Date Time Temp Pulse Resp B/P (MAP) Pulse Ox O2 Delivery O2 Flow Rate FiO2 07/07/19 07:19 95 Nasal Cannula 3.0 07/07/19 07:00 97.8 76 16 125/88 (100) 97.8 ROS: No Nausea, No Chest Pain, No Abdominal Pain, No Increase Cough General: Alert, Oriented X4 Lungs: Wheezing (faint) Cardiovascular: S1, S2 Abdomen: Soft, Non-tender Extremities: Other (trace BLE edema ) Skin: Warm, Dry Labs Laboratory Tests Test 07/06/19 11:50 White Blood Count 7.8 x10^3/uL (4.0-11.0) Red Blood Count 4.22 x10^6/uL (3.50-5.40) Hemoglobin 12.7 g/dL (12.0-15.5) Hematocrit 39.0 % (36.0-47.0) Mean Corpuscular Volume 92 fL (79-100) Mean Corpuscular Hemoglobin 30 pg (25-35) Mean Corpuscular Hemoglobin Concent 33 g/dL (31-37) Red Cell Distribution Width 13.5 % (11.5-14.5) Platelet Count 219 x10^3/uL (140-400) Neutrophils (%) (Auto) 81 % (31-73) Lymphocytes (%) (Auto) 12 % (24-48) Monocytes (%) (Auto) 7 % (0-9) Eosinophils (%) (Auto) 0 % (0-3) Basophils (%) (Auto) 0 % (0-3) Neutrophils # (Auto) 6.3 x10^3/uL (1.8-7.7) Lymphocytes # (Auto) 0.9 x10^3/uL (1.0-4.8) Monocytes # (Auto) 0.5 x10^3/uL (0.0-1.1) Eosinophils # (Auto) 0.0 x10^3/uL (0.0-0.7) Basophils # (Auto) 0.0 x10^3/uL (0.0-0.2) Sodium Level 146 mmol/L (136-145) Potassium Level 3.9 mmol/L (3.5-5.1) Chloride Level 106 mmol/L (98-107) Carbon Dioxide Level 39 mmol/L (21-32) Anion Gap 1 (6-14) Blood Urea Nitrogen 11 mg/dL (7-20) Creatinine 1.0 mg/dL (0.6-1.0) Estimated GFR (Cockcroft-Gault) 68.2 Glucose Level 104 mg/dL (70-99) Calcium Level 8.8 mg/dL (8.5-10.1) Laboratory Tests Test 07/06/19 11:50 White Blood Count 7.8 x10^3/uL (4.0-11.0) Red Blood Count 4.22 x10^6/uL (3.50-5.40) Hemoglobin 12.7 g/dL (12.0-15.5) Hematocrit 39.0 % (36.0-47.0) Mean Corpuscular Volume 92 fL (79-100) Mean Corpuscular Hemoglobin 30 pg (25-35) Mean Corpuscular Hemoglobin Concent 33 g/dL (31-37) Red Cell Distribution Width 13.5 % (11.5-14.5) Platelet Count 219 x10^3/uL (140-400) Neutrophils (%) (Auto) 81 % (31-73) Lymphocytes (%) (Auto) 12 % (24-48) Monocytes (%) (Auto) 7 % (0-9) Eosinophils (%) (Auto) 0 % (0-3) Basophils (%) (Auto) 0 % (0-3) Neutrophils # (Auto) 6.3 x10^3/uL (1.8-7.7) Lymphocytes # (Auto) 0.9 x10^3/uL (1.0-4.8) Monocytes # (Auto) 0.5 x10^3/uL (0.0-1.1) Eosinophils # (Auto) 0.0 x10^3/uL (0.0-0.7) Basophils # (Auto) 0.0 x10^3/uL (0.0-0.2) Sodium Level 146 mmol/L (136-145) Potassium Level 3.9 mmol/L (3.5-5.1) Chloride Level 106 mmol/L (98-107) Carbon Dioxide Level 39 mmol/L (21-32) Anion Gap 1 (6-14) Blood Urea Nitrogen 11 mg/dL (7-20) Creatinine 1.0 mg/dL (0.6-1.0) Estimated GFR (Cockcroft-Gault) 68.2 Glucose Level 104 mg/dL (70-99) Calcium Level 8.8 mg/dL (8.5-10.1) Medications Active Scripts Medications Dose Route/Sig Max Daily Dose Days Date Category Dose Instructions Prednisone 20 Mg Tablet 1 Tab PO DAILY 6 03/28/19 Rx take three pills daily for 2 days then two pills daily for 2 days then one pill daily for 2 days. Levaquin (Levofloxacin) 500 Mg Tablet 1 Tab PO DAILY 3 03/28/19 Rx [guaiFENesin/CODEINE 100mg/10mg] 5 ML Liquid 5 Ml PO PRN Q6HRS PRN 03/28/19 Rx Xanax (Alprazolam) 0.25 Mg Tablet 0.25 Mg PO BID 03/24/19 Reported Protonix (Pantoprazole Sodium) 20 Mg Tablet.dr 40 Mg PO DAILY 01/13/19 Reported Ferrous Sulfate 300 Mg/5 Ml Liquid 300 Mg PO BIDWMEALS 30 08/29/18 Rx Zoloft (Sertraline Hcl) 50 Mg Tablet 1 Tab PO HS 05/10/18 Reported Clopidogrel (Clopidogrel Bisulfate) 75 Mg Tablet 1 Tab PO DAILY 02/25/18 Reported Potassium Chloride (Potassium Chloride) 10 Meq Capsule.er 1 Cap PO DAILY 04/26/15 Rx Singulair Tablet (Montelukast Sodium) 10 Mg Tablet 1 Tab PO HS 04/27/14 Reported Lasix (Furosemide) 20 Mg Tablet 1 Tab PO DAILY16 04/27/14 Reported Symbicort 160-4.5 Mcg Inhaler (Budesonide/Formoterol Fumarate) 10.2 Gm Hfa.aer.ad 10.2 Gm IH BID 07/28/13 Reported Albuterol Sulfate Hfa Inhaler (Albuterol Sulfate) 8.5 Gm Hfa.aer.ad 8.5 Gm IH PRN 07/28/13 Reported Duoneb 0.5 Mg-3 Mg/3 Ml Soln (Ipratropium/Albuterol Sulfate) 3 Ml Ampul.neb 3 Ml IH QID 07/28/13 Reported Aspir 81 (Aspirin) 81 Mg Tablet.dr 81 Mg PO DAILY 07/28/13 Reported Impression . IMPRESSION: 1. Acute on chronic hypoxic respiratory failure secondary to acute exacerbation of chronic obstructive pulmonary disease and acute bronchitis. 2. Cough, combination of viral and possible bacterial bronchitis. 3. No definite consolidation seen on the chest x-ray. 4. ABGs with compensated hypercapnia. Plan . RECOMMENDATIONS: 1. Continue with present oxygen and gradually wean to keep saturations above 92% and wean to a baseline of 2 liters, currently requiring 3 liters N/C 2. Continue antibiotics. 3. DuoNebs/ Pulmicort/ p.o. steroids 4. Cough suppressant. 5. DVT PPX 6. nasal spray for nasal congestion TRACEE HAGAN RN, MD Jul 07, 2019 09:51
[2019-07-07 11:00] VITALS: BP 107/72
[2019-07-07 15:00] VITALS: BP 147/92
--- NOTE | 2019-07-07 15:08 | NUR ---
SW following. Discussed with RN, pt was accepted with [facility]. Pt is now declining the need for home health services. Pt will discharge home with self care, already has oxygen at home. No further SW needs.
--- NOTE | 2019-07-07 15:47 | RAD ---
Examination: VENOUS LOWER EXTREMITY LEFT History: Left leg pain Comparison/Correlation: None FINDINGS: Left lower extremity duplex venous ultrasound exam was performed. Grayscale, color Doppler, and spectral Doppler imaging was performed. This exam is limited due to the patient experiencing significant left leg pain and the technologist not being able to compress as result at the level of the thigh. The left common femoral vein, superficial femoral vein, popliteal vein, and greater saphenous vein have normal flow on color and spectral Doppler imaging with no evidence of deep venous thrombus. Compression of the popliteal, posterior tibial, and great saphenous veins is noted. Compression could not be performed of the common femoral vein or superficial femoral vein levels due to patient reporting significant pain. IMPRESSION: No evidence of deep venous thrombus involving the left lower extremity on the basis of color and spectral Doppler imaging. Limited exam. Electronically signed by: Franco Orourke MD (07/07/2019 3:44 PM) [facility]
[2019-07-07] MEDS: FUROSEMIDE 20 MG TABLET PO SCH (17:22)
[2019-07-07] MEDS: SODIUM CHLORIDE 0.65% NASAL SPRAY 45ML BOTTLE. NS PRN (17:22)
[2019-07-07] MEDS: LIDOCAINE (700MG/PATCH) PATCH. TD SCH (17:23)
[2019-07-07] MEDS: FERROUS SULFATE 325 MG TABLET. PO SCH (18:00)
[2019-07-07 19:00] VITALS: BP 134/85
[2019-07-07] MEDS: PATCH REMOVAL. MC SCH (21:00)
[2019-07-07] MEDS: MONTELUKAST SODIUM 10 MG TABLET. PO SCH (21:05)
[2019-07-07] MEDS: ATORVASTATIN CALCIUM 40 MG TABLET. PO SCH (21:05)
[2019-07-07] MEDS: SERTRALINE 50 MG TABLET. PO SCH (21:06)
[2019-07-07 23:00] VITALS: BP 151/98
[2019-07-07] MEDS: tiZANidine 4 MG TABLET. PO PRN (23:26)
[2019-07-08 03:05] VITALS: BP 135/89
[2019-07-08] MEDS: IPRATRPIUM/ALBUTEROL 0.5/2.5MG 3 ML NEBU. NEB SCH ×5 (03:27→19:00)
[2019-07-08 07:00] VITALS: BP 136/83
[2019-07-08] MEDS: BUDESONIDE 0.5 MG/2 ML NEBU. NEB SCH ×2 (07:10→20:00)
--- NOTE | 2019-07-08 08:56 | PDOC ---
PULMONARY PROGRESS NOTES Subjective sob better, has cough, not much sputum, on home 02 lpm, no overnight concerns Vitals Vital Signs Date Time Temp Pulse Resp B/P (MAP) Pulse Ox O2 Delivery O2 Flow Rate FiO2 07/08/19 07:17 96 Nasal Cannula 2.0 07/08/19 03:05 98.1 79 20 135/89 (104) 98.1 ROS: No Nausea, No Chest Pain, No Abdominal Pain, No Increase Cough General: Alert, Oriented X4 Lungs: Crackles Cardiovascular: S1, S2 Abdomen: Soft, Non-tender Neuro Exam: Alert Extremities: Other (trace BLE edema ) Skin: Warm, Dry Labs Laboratory Tests Test 07/06/19 11:50 White Blood Count 7.8 x10^3/uL (4.0-11.0) Red Blood Count 4.22 x10^6/uL (3.50-5.40) Hemoglobin 12.7 g/dL (12.0-15.5) Hematocrit 39.0 % (36.0-47.0) Mean Corpuscular Volume 92 fL (79-100) Mean Corpuscular Hemoglobin 30 pg (25-35) Mean Corpuscular Hemoglobin Concent 33 g/dL (31-37) Red Cell Distribution Width 13.5 % (11.5-14.5) Platelet Count 219 x10^3/uL (140-400) Neutrophils (%) (Auto) 81 % (31-73) Lymphocytes (%) (Auto) 12 % (24-48) Monocytes (%) (Auto) 7 % (0-9) Eosinophils (%) (Auto) 0 % (0-3) Basophils (%) (Auto) 0 % (0-3) Neutrophils # (Auto) 6.3 x10^3/uL (1.8-7.7) Lymphocytes # (Auto) 0.9 x10^3/uL (1.0-4.8) Monocytes # (Auto) 0.5 x10^3/uL (0.0-1.1) Eosinophils # (Auto) 0.0 x10^3/uL (0.0-0.7) Basophils # (Auto) 0.0 x10^3/uL (0.0-0.2) Sodium Level 146 mmol/L (136-145) Potassium Level 3.9 mmol/L (3.5-5.1) Chloride Level 106 mmol/L (98-107) Carbon Dioxide Level 39 mmol/L (21-32) Anion Gap 1 (6-14) Blood Urea Nitrogen 11 mg/dL (7-20) Creatinine 1.0 mg/dL (0.6-1.0) Estimated GFR (Cockcroft-Gault) 68.2 Glucose Level 104 mg/dL (70-99) Calcium Level 8.8 mg/dL (8.5-10.1) Medications Active Scripts Medications Dose Route/Sig Max Daily Dose Days Date Category Dose Instructions Prednisone 20 Mg Tablet 1 Tab PO DAILY 6 03/28/19 Rx take three pills daily for 2 days then two pills daily for 2 days then one pill daily for 2 days. Levaquin (Levofloxacin) 500 Mg Tablet 1 Tab PO DAILY 3 03/28/19 Rx [guaiFENesin/CODEINE 100mg/10mg] 5 ML Liquid 5 Ml PO PRN Q6HRS PRN 03/28/19 Rx Xanax (Alprazolam) 0.25 Mg Tablet 0.25 Mg PO BID 03/24/19 Reported Protonix (Pantoprazole Sodium) 20 Mg Tablet.dr 40 Mg PO DAILY 01/13/19 Reported Ferrous Sulfate 300 Mg/5 Ml Liquid 300 Mg PO BIDWMEALS 30 08/29/18 Rx Zoloft (Sertraline Hcl) 50 Mg Tablet 1 Tab PO HS 05/10/18 Reported Clopidogrel (Clopidogrel Bisulfate) 75 Mg Tablet 1 Tab PO DAILY 02/25/18 Reported Potassium Chloride (Potassium Chloride) 10 Meq Capsule.er 1 Cap PO DAILY 04/26/15 Rx Singulair Tablet (Montelukast Sodium) 10 Mg Tablet 1 Tab PO HS 04/27/14 Reported Lasix (Furosemide) 20 Mg Tablet 1 Tab PO DAILY16 04/27/14 Reported Symbicort 160-4.5 Mcg Inhaler (Budesonide/Formoterol Fumarate) 10.2 Gm Hfa.aer.ad 10.2 Gm IH BID 07/28/13 Reported Albuterol Sulfate Hfa Inhaler (Albuterol Sulfate) 8.5 Gm Hfa.aer.ad 8.5 Gm IH PRN 07/28/13 Reported Duoneb 0.5 Mg-3 Mg/3 Ml Soln (Ipratropium/Albuterol Sulfate) 3 Ml Ampul.neb 3 Ml IH QID 07/28/13 Reported Aspir 81 (Aspirin) 81 Mg Tablet.dr 81 Mg PO DAILY 07/28/13 Reported Impression . IMPRESSION: 1. Acute on chronic hypoxic respiratory failure secondary to acute exacerbation of chronic obstructive pulmonary disease and acute bronchitis. 2. Cough, combination of viral and possible bacterial bronchitis. 3. No definite consolidation seen on the chest x-ray. 4. ABGs with compensated hypercapnia. Plan . RECOMMENDATIONS: 1. Continue with present oxygen and gradually wean to keep saturations above 92% and wean to a baseline of 2 liters, currently requiring 3 liters N/C 2. Continue antibiotics. 3. DuoNebs/ Pulmicort/ p.o. steroids w taper by 10 mg q 3d 4. Cough suppressant. 5. DVT PPX 6. flonase nasal spray for nasal congestion 7. increase activity DW RN, pt TRINY CHEN MD Jul 08, 2019 08:56
[2019-07-08] MEDS: LIDOCAINE (700MG/PATCH) PATCH. TD SCH (09:00)
[2019-07-08] MEDS: AZITHROMYCIN 250 MG TABLET. PO SCH (09:31)
[2019-07-08] MEDS: POTASSIUM CHLORIDE 10 MEQ TABLET.ER. PO SCH (09:31)
[2019-07-08] MEDS: CLOPIDOGREL BISULFATE 75 MG TABLET PO SCH (09:31)
[2019-07-08] MEDS: predniSONE 20 MG TABLET PO SCH (09:31)
[2019-07-08] MEDS: LACTOBACILLUS RHAMNOSUS GG 1 CAPSULE. PO SCH ×2 (09:31→21:15)
[2019-07-08] MEDS: FERROUS SULFATE 325 MG TABLET. PO SCH ×2 (09:31→16:12)
[2019-07-08] MEDS: ASPIRIN ENTERIC COATED 81 MG TABLET.DR. PO SCH (09:32)
[2019-07-08] MEDS: PANTOPRAZOLE 40 MG TABLET.DR. PO SCH (09:32)
[2019-07-08] MEDS: CETIRIZINE HCL 10 MG TABLET. PO SCH (09:32)
[2019-07-08] MEDS: ENOXAPARIN 40 MG/0.4 ML SYRINGE. SQ SCH (09:33)
[2019-07-08] MEDS: cefTRIAXone IV Push 1 GM VIAL. IVP SCH (09:34)
[2019-07-08] MEDS: SODIUM CHLORIDE 0.65% NASAL SPRAY 45ML BOTTLE. NS PRN (09:35)
[2019-07-08] MEDS: FLUTICASONE 50MCG/NASAL SPRAY 16GM BOTTLE. NS SCH (09:36)
[2019-07-08 11:00] VITALS: BP 138/73
--- NOTE | 2019-07-08 11:47 | PDOC ---
PROGRESS NOTES Chief Complaint Chief Complaint IMPRESSION Acute respiratory failure with hypercapnia ///AND HYPOXIC RESP FAILURE Acute exacerbation of COPD Atypical CP NEG TROPONIN I X 2 Abdominal pain -improving CAD - S/P PCI/MARLA to RCA 02/2018 Mild Cardiomyopathy - compensated HTN - controlled HLP - LDL not on goal Obesity ABDOMINAL DISCOMFORT LEG EDEMA, No evidence of deep venous thrombus involving the left lower extremity on the basis of color and spectral Doppler imaging 07/08 History of Present Illness History of Present Illness 59 yo F w/ PMHx hypertension, dyslipidemia, coronary artery disease status post CABG, COPD on 2 L of oxygen who presents with complaint of shortness of breath and cough. Cough that sometimes is productive with yellow and green sputum for the last 2 weeks associated with constant shortness of breath that getting worse with supine position and light activity. Also complaining of myalgia and subjective fever, sore throat and earache and denies vomiting, diarrhea, urinary symptoms, some left and right chest discomfort, RUQ PAIN AFTER MEALS NOTED NEW. CXR and RUQ US were relatively unrevealing. Influenza screen negative. ABG 7.37//. Cardiology and pulmonology consulted. 07/04: Feeling more short of breath. Chest pain improved. RUQ pain improved. Now c/o nasal stuffiness, red itchy eyes and ear fullness bilaterally. Cough is tight. 07/06: STILL REQUIRES 3 LITER O2. She is upset that she thinks she is being given a diuretic at night and states she wants more salt with her food, states "There is nothing wrong with my heart, I can eat what I want", is requesting regular diet. I have advised her that she does have CAD and prior RCA stenting in 2018. She is insistent on dietary liberalization Abdominal pain has improved a bit. NO DVT new left lower leg swelling and pain, particularly in the calf. SOB improved, still with cough. No CP. Plan: IV steroids change to PO Change antibiotics to PO Added prn albuterol nebs F/u pulm recs and cardiology recs Added antihistamine and nasal corticosteroid Cont to wean O2, Still on 3L, not at home dosing LLE DVT study Lidoderm and tizanidine for neck spasms Vitals Vitals Vital Signs Date Time Temp Pulse Resp B/P (MAP) Pulse Ox O2 Delivery O2 Flow Rate FiO2 07/08/19 11:03 Nasal Cannula 2.0 07/08/19 07:17 96 07/08/19 07:00 98.5 66 20 136/83 (100) 98.5 Physical Exam General: Alert, Oriented X3, Cooperative, No acute distress Heart: Regular rate (SR), Normal S1, Normal S2, Other (unable to appreciate heart sounds due to adventitious sounds) Lungs: Wheezing (faint) Abdomen: Normal bowel sounds, Soft, No tenderness Extremities: No clubbing, No cyanosis, No edema Skin: No breakdown, No significant lesion Labs LABS : [id number] LOCATION: [address] [place] [address] AGE: 59 SEX: F EXAM STATUS: ADM IN ORD. PHYSICIAN: ZEB ASHLEY MD REASON: pain, swelling, assess for DVT PROCEDURE: VENOUS LOWER EXTREMITY LEFT Examination: VENOUS LOWER EXTREMITY LEFT History: Left leg pain Comparison/Correlation: None FINDINGS: Left lower extremity duplex venous ultrasound exam was performed. Grayscale, color Doppler, and spectral Doppler imaging was performed. This exam is limited due to the patient experiencing significant left leg pain and the technologist not being able to compress as result at the level of the thigh. The left common femoral vein, superficial femoral vein, popliteal vein, and greater saphenous vein have normal flow on color and spectral Doppler imaging with no evidence of deep venous thrombus. Compression of the popliteal, posterior tibial, and great saphenous veins is noted. Compression could not be performed of the common femoral vein or superficial femoral vein levels due to patient reporting significant pain. IMPRESSION: No evidence of deep venous thrombus involving the left lower extremity on the basis of color and spectral Doppler imaging. Limited exam. Electronically signed by: Franco Roa MD (07/07/2019 3:44 PM) [facility] DICTATED and SIGNED BY: FRANCO ROA MD DATE: 07/07/19 1546 Comment Review of Relevant I have reviewed the following items paulette (where applicable) has been applied. Labs Laboratory Tests Test 07/06/19 11:50 White Blood Count 7.8 x10^3/uL (4.0-11.0) Red Blood Count 4.22 x10^6/uL (3.50-5.40) Hemoglobin 12.7 g/dL (12.0-15.5) Hematocrit 39.0 % (36.0-47.0) Mean Corpuscular Volume 92 fL (79-100) Mean Corpuscular Hemoglobin 30 pg (25-35) Mean Corpuscular Hemoglobin Concent 33 g/dL (31-37) Red Cell Distribution Width 13.5 % (11.5-14.5) Platelet Count 219 x10^3/uL (140-400) Neutrophils (%) (Auto) 81 % (31-73) Lymphocytes (%) (Auto) 12 % (24-48) Monocytes (%) (Auto) 7 % (0-9) Eosinophils (%) (Auto) 0 % (0-3) Basophils (%) (Auto) 0 % (0-3) Neutrophils # (Auto) 6.3 x10^3/uL (1.8-7.7) Lymphocytes # (Auto) 0.9 x10^3/uL (1.0-4.8) Monocytes # (Auto) 0.5 x10^3/uL (0.0-1.1) Eosinophils # (Auto) 0.0 x10^3/uL (0.0-0.7) Basophils # (Auto) 0.0 x10^3/uL (0.0-0.2) Sodium Level 146 mmol/L (136-145) Potassium Level 3.9 mmol/L (3.5-5.1) Chloride Level 106 mmol/L (98-107) Carbon Dioxide Level 39 mmol/L (21-32) Anion Gap 1 (6-14) Blood Urea Nitrogen 11 mg/dL (7-20) Creatinine 1.0 mg/dL (0.6-1.0) Estimated GFR (Cockcroft-Gault) 68.2 Glucose Level 104 mg/dL (70-99) Calcium Level 8.8 mg/dL (8.5-10.1) Microbiology 07/03/19 Blood Culture - Final, Complete NO GROWTH AFTER 5 DAYS Medications Current Medications Albuterol/ Ipratropium (Duoneb) 3 ml 1X ONCE NEB Last administered on 07/03/19at 11:28; Start 07/03/19 at 11:15; Stop 07/03/19 at 11:16; Status DC Methylprednisolone Sodium Succinate (SOLU-Medrol 125MG VIAL) 125 mg 1X ONCE IV Last administered on 07/03/19at 12:36; Start 07/03/19 at 11:15; Stop 07/03/19 at 11:16; Status DC Sodium Chloride 1,000 ml @ 100 mls/hr Q10H IV Last administered on 07/04/19at 08:17; Start 07/03/19 at 12:18; Stop 07/04/19 at 12:17; Status DC Ceftriaxone Sodium (Rocephin) 1 gm 1X ONCE IVP Last administered on 07/03/19at 12:35; Start 07/03/19 at 12:30; Stop 07/03/19 at 12:31; Status DC Alprazolam (Xanax) 0.25 mg BID PO Last administered on 07/05/19at 08:41; Start 07/03/19 at 21:00; Stop 07/05/19 at 09:39; Status DC Aspirin (Ecotrin) 81 mg DAILYWBKFT PO Last administered on 07/08/19at 09:32; Start 07/04/19 at 08:00 Clopidogrel Bisulfate (Plavix) 75 mg DAILYWBKFT PO Last administered on 07/08/19at 09:31; Start 07/04/19 at 08:00 Ferrous Sulfate (Iron Oral Solution) 300 mg BIDWMEALS PO Last administered on 07/07/19at 09:34; Start 07/03/19 at 17:00; Stop 07/07/19 at 17:21; Status DC Furosemide (Lasix) 20 mg DAILY16 PO Last administered on 07/07/19at 17:22; Start 07/03/19 at 16:00 Albuterol/ Ipratropium (Duoneb) 3 ml RTQID IH ; Start 07/03/19 at 16:00; Status UNV Montelukast Sodium (Singulair) 10 mg HS PO Last administered on 07/07/19at 21:05; Start 07/03/19 at 21:00 Potassium Chloride (Klor-Con) 10 meq DAILYWBKFT PO Last administered on 07/08/19at 09:31; Start 07/04/19 at 08:00 Sertraline HCl (Zoloft) 50 mg HS PO Last administered on 07/07/19at 21:06; Start 07/03/19 at 21:00 Budesonide (Pulmicort) 0.5 mg RTBID NEB Last administered on 07/08/19 07:10; Start 07/03/19 at 20:00 Pantoprazole Sodium (Protonix) 40 mg DAILYAC PO Last administered on 07/08/19at 09:32; Start 07/04/19 at 07:30 Guaifenesin/ Codeine Phosphate (Robitussin Ac) 5 ml PRN Q6HRS PRN PO COUGH, 2ND CHOICE Last administered on 07/07/19at 23:29; Start 07/03/19 at 15:15 Sodium Chloride (Normal Saline Flush) 3 ml QSHIFT PRN IV AFTER MEDS AND BLOOD DRAWS; Start 07/03/19 at 15:00 Ondansetron HCl (Zofran) 4 mg PRN Q4HRS PRN IV NAUSEA/VOMITING; Start 07/03/19 at 15:00 Acetaminophen (Tylenol) 650 mg PRN Q4HRS PRN PO TEMP OVER 100.4F OR MILD PAIN; Start 07/03/19 at 15:00 Al Hydroxide/Mg Hydroxide (Mylanta Plus Xs) 30 ml PRN DAILY PRN PO HEARTBURN / GAS; Start 07/03/19 at 15:00 Clonidine HCl (Catapres) 0.1 mg PRN Q6HRS PRN PO SBP>160 OR DBP>90; Start 07/03/19 at 15:00 Docusate Sodium (Colace) 100 mg PRN BID PRN PO CONSTIPATION; Start 07/03/19 at 15:00 Albuterol/ Ipratropium (Duoneb) 3 ml Q4H NEB Last administered on 07/08/19at 11:02; Start 07/03/19 at 15:00 Guaifenesin (Robitussin) 200 mg PRN Q4HRS PRN PO COUGH, 1ST CHOICE Last administered on 07/06/19at 05:07; Start 07/03/19 at 15:00 Enoxaparin Sodium (Lovenox 40mg Syringe) 40 mg DAILY SQ Last administered on 07/08/19at 09:33; Start 07/04/19 at 09:00 Levofloxacin/ Dextrose 100 ml @ 100 mls/hr Q24H IV ; Start 07/03/19 at 15:00; Status UNV Azithromycin 500 mg/Sodium Chloride 250 ml @ 250 mls/hr DAILY IV Last administered on 07/05/19at 08:41; Start 07/03/19 at 16:00; Stop 07/05/19 at 09:43; Status DC Ceftriaxone Sodium (Rocephin) 1 gm DAILY IVP Last administered on 07/08/19at 09:34; Start 07/04/19 at 09:00 Albuterol Sulfate (Ventolin Neb Soln) 2.5 mg PRN Q4HRS PRN NEB SHORTNESS OF KARISHMA ATH Last administered on 07/08/19at 00:25; Start 07/04/19 at 11:00 Methylprednisolone Sodium Succinate (SOLU-Medrol 40MG VIAL) 40 mg Q8HRS IV Last administered on 07/05/19at 06:13; Start 07/04/19 at 12:00; Stop 07/05/19 at 09:39; Status DC Fluticasone Propionate (Flonase) 2 spray DAILY NS Last administered on 07/08/19at 09:36; Start 07/04/19 at 11:00 Cetirizine HCl (ZyrTEC) 10 mg DAILY PO Last administered on 07/08/19 09:32; Start 07/04/19 at 11:00 Atorvastatin Calcium (Lipitor) 40 mg QHS PO Last administered on 07/07/19at 21:05; Start 07/04/19 at 21:00 Lactobacillus Rhamnosus (Culturelle) 1 cap BID PO Last administered on 0at 09:31; Start 07/04/19 at 21:00 Alprazolam (Xanax) 0.25 mg PRN BID PRN PO anxiety; Start 07/05/19 at 21:00; Stop 07/07/19 at 15:07; Status DC Prednisone (Prednisone) 20 mg DAILY PO Last administered on 07/08/19at 09:31; Start 07/05/19 at 10:00 Azithromycin (Zithromax) 250 mg DAILY PO Last administered on 07/08/19 09:31; Start 07/06/19 at 09:00 Sodium Chloride (Saline Mist Nasal) 1 ebonie PRN Q1HR PRN NS NASAL CONGESTION Last administered on 07/08/19at 09:35; Start 07/07/19 at 09:45 Tizanidine HCl (Zanaflex) 2 mg PRN Q8HRS PRN PO MUSCLE SPASMS Last administered on 1/24/20at 23:26; Start 07/07/19 at 15:15 Lidocaine (Lidoderm) 1 patch DAILY TD Last administered on 07/07/19at 17:23; Start 07/07/19 at 15:30 Miscellaneous (Lidoderm Patch Removal) 1 ea QHS ; Start 07/07/19 at 21:00 Ferrous Sulfate (Feosol) 325 mg BIDAFTMEAL PO Last administered on 07/08/19at 09:31; Start 07/07/19 at 18:00 Active Scripts Active Prednisone 20 Mg Tablet 1 Tab PO DAILY 6 Days take three pills daily for 2 days then two pills daily for 2 days then one pill daily for 2 days. Levaquin (Levofloxacin) 500 Mg Tablet 1 Tab PO DAILY 3 Days [guaiFENesin/CODEINE 100mg/10mg] 5 ML Liquid 5 Ml PO PRN Q6HRS PRN Ferrous Sulfate 300 Mg/5 Ml Liquid 300 Mg PO BIDWMEALS 30 Days Potassium Chloride (Potassium Chloride) 10 Meq Capsule.er 1 Cap PO DAILY Reported Xanax (Alprazolam) 0.25 Mg Tablet 0.25 Mg PO BID Protonix (Pantoprazole Sodium) 20 Mg Tablet. 40 Mg PO DAILY Zoloft (Sertraline Hcl) 50 Mg Tablet 1 Tab PO HS Clopidogrel (Clopidogrel Bisulfate) 75 Mg Tablet 1 Tab PO DAILY Singulair Tablet (Montelukast Sodium) 10 Mg Tablet 1 Tab PO HS Lasix (Furosemide) 20 Mg Tablet 1 Tab PO DAILY16 Symbicort 160-4.5 Mcg Inhaler (Budesonide/Formoterol Fumarate) 10.2 Gm Hfa.aer.ad 10.2 Gm IH BID Albuterol Sulfate Hfa Inhaler (Albuterol Sulfate) 8.5 Gm Hfa.aer.ad 8.5 Gm IH PRN Duoneb 0.5 Mg-3 Mg/3 Ml Soln (Ipratropium/Albuterol Sulfate) 3 Ml Ampul.neb 3 Ml IH QID Aspir 81 (Aspirin) 81 Mg Tablet.dr 81 Mg PO DAILY Vitals/I & O Vital Sign - Last 24 Hours 07/07/19 07/07/19 07/07/19 07/07/19 15:00 15:01 19:00 20:00 Temp 98.3 99.1 98.3 99.1 Pulse 82 94 Resp 16 20 B/P (MAP) 147/92 (110) 134/85 (101) Pulse Ox 94 95 95 O2 Delivery Nasal Cannula Nasal Cannula Nasal Cannula Nasal Cannula O2 Flow Rate 2.0 3.0 3.0 07/07/19 07/07/19 07/07/19 07/08/19 20:58 21:00 23:00 00:26 Temp 98.4 98.4 Pulse 81 Resp 20 B/P (MAP) 151/98 (115) Pulse Ox 96 96 93 93 O2 Delivery Nasal Cannula Nasal Cannula Nasal Cannula Nasal Cannula O2 Flow Rate 2.0 2.0 2.0 07/08/19 07/08/19 07/08/19 07/08/19 03:05 03:27 07:00 07:17 Temp 98.1 98.5 98.1 98.5 Pulse 79 66 Resp 20 20 B/P (MAP) 135/89 (104) 136/83 (100) Pulse Ox 97 97 95 96 O2 Delivery Nasal Cannula Nasal Cannula Nasal Cannula Nasal Cannula O2 Flow Rate 2.0 2.0 07/08/19 11:03 O2 Delivery Nasal Cannula O2 Flow Rate 2.0 CORWIN FLOREZ MD Jul 08, 2019 11:47
[2019-07-08] MEDS: DOCUSATE SODIUM 100 MG CAPSULE. PO PRN (13:34)
[2019-07-08 15:00] VITALS: BP 141/88
[2019-07-08] MEDS: FUROSEMIDE 20 MG TABLET PO SCH (16:12)
[2019-07-08 19:00] VITALS: BP 136/76
[2019-07-08] MEDS: PATCH REMOVAL. MC SCH (21:00)
[2019-07-08] MEDS: SERTRALINE 50 MG TABLET. PO SCH (21:15)
[2019-07-08] MEDS: MONTELUKAST SODIUM 10 MG TABLET. PO SCH (21:15)
[2019-07-08] MEDS: ATORVASTATIN CALCIUM 40 MG TABLET. PO SCH (21:15)
[2019-07-08 23:00] VITALS: BP 142/86
[2019-07-09] MEDS: guaiFENesin/CODEINE 100mg/10mg 5 ML LIQUID PO PRN (00:02)
[2019-07-09] MEDS: IPRATRPIUM/ALBUTEROL 0.5/2.5MG 3 ML NEBU. NEB SCH ×6 (00:06→20:35)
[2019-07-09 03:00] VITALS: BP 146/83
[2019-07-09] MEDS: BUDESONIDE 0.5 MG/2 ML NEBU. NEB SCH ×2 (07:32→20:35)
--- NOTE | 2019-07-09 07:56 | PDOC ---
PULMONARY PROGRESS NOTES Subjective sob better, has more cough, not much sputum, on home 02 lpm, no overnight concerns Vitals Vital Signs Date Time Temp Pulse Resp B/P (MAP) Pulse Ox O2 Delivery O2 Flow Rate FiO2 07/09/19 07:35 97 Nasal Cannula 2.0 07/09/19 03:00 97.6 68 18 146/83 (104) 97.6 ROS: No Nausea, No Chest Pain, No Abdominal Pain, No Increase Cough General: Alert, Oriented X4 Lungs: Wheezing, Crackles Cardiovascular: S1, S2 Abdomen: Soft, Non-tender Neuro Exam: Alert Extremities: Other (trace BLE edema ) Skin: Warm, Dry Medications Active Scripts Medications Dose Route/Sig Max Daily Dose Days Date Category Dose Instructions Prednisone 20 Mg Tablet 1 Tab PO DAILY 6 03/28/19 Rx take three pills daily for 2 days then two pills daily for 2 days then one pill daily for 2 days. Levaquin (Levofloxacin) 500 Mg Tablet 1 Tab PO DAILY 3 03/28/19 Rx [guaiFENesin/CODEINE 100mg/10mg] 5 ML Liquid 5 Ml PO PRN Q6HRS PRN 03/28/19 Rx Xanax (Alprazolam) 0.25 Mg Tablet 0.25 Mg PO BID 03/24/19 Reported Protonix (Pantoprazole Sodium) 20 Mg Tablet.dr 40 Mg PO DAILY 01/13/19 Reported Ferrous Sulfate 300 Mg/5 Ml Liquid 300 Mg PO BIDWMEALS 30 08/29/18 Rx Zoloft (Sertraline Hcl) 50 Mg Tablet 1 Tab PO HS 05/10/18 Reported Clopidogrel (Clopidogrel Bisulfate) 75 Mg Tablet 1 Tab PO DAILY 02/25/18 Reported Potassium Chloride (Potassium Chloride) 10 Meq Capsule.er 1 Cap PO DAILY 04/26/15 Rx Singulair Tablet (Montelukast Sodium) 10 Mg Tablet 1 Tab PO HS 04/27/14 Reported Lasix (Furosemide) 20 Mg Tablet 1 Tab PO DAILY16 04/27/14 Reported Symbicort 160-4.5 Mcg Inhaler (Budesonide/Formoterol Fumarate) 10.2 Gm Hfa.aer.ad 10.2 Gm IH BID 07/28/13 Reported Albuterol Sulfate Hfa Inhaler (Albuterol Sulfate) 8.5 Gm Hfa.aer.ad 8.5 Gm IH PRN 07/28/13 Reported Duoneb 0.5 Mg-3 Mg/3 Ml Soln (Ipratropium/Albuterol Sulfate) 3 Ml Ampul.neb 3 Ml IH QID 07/28/13 Reported Aspir 81 (Aspirin) 81 Mg Tablet.dr 81 Mg PO DAILY 07/28/13 Reported Impression . IMPRESSION: 1. Acute on chronic hypoxic respiratory failure secondary to acute exacerbation of chronic obstructive pulmonary disease and acute bronchitis. 2. Cough, combination of viral and possible bacterial bronchitis. 3. No definite consolidation seen on the chest x-ray. 4. ABGs with compensated hypercapnia. Plan . RECOMMENDATIONS: 1. Continue with present oxygen and gradually wean to keep saturations above 92% and wean to a baseline of 2 liters, currently requiring 3 liters N/C 2. Continue antibiotics. 3. DuoNebs/ Pulmicort/ p.o. has more cough, wheezing, increase prednisone to 40 mg w taper by 10 mg q 3d 4. Cough suppressant. 5. DVT PPX 6. flonase nasal spray for nasal congestion 7. increase activity DW RN, pt TRINY CHEN MD Jul 09, 2019 07:56
[2019-07-09 07:59] VITALS: BP 136/67
[2019-07-09] MEDS: PANTOPRAZOLE 40 MG TABLET.DR. PO SCH (08:44)
[2019-07-09] MEDS: POTASSIUM CHLORIDE 10 MEQ TABLET.ER. PO SCH (08:45)
[2019-07-09] MEDS: CEFDINIR 300 MG CAPSULE PO SCH ×2 (08:45→21:06)
[2019-07-09] MEDS: ASPIRIN ENTERIC COATED 81 MG TABLET.DR. PO SCH (08:45)
[2019-07-09] MEDS: FLUTICASONE 50MCG/NASAL SPRAY 16GM BOTTLE. NS SCH (08:45)
[2019-07-09] MEDS: LACTOBACILLUS RHAMNOSUS GG 1 CAPSULE. PO SCH ×2 (08:45→21:06)
[2019-07-09] MEDS: AZITHROMYCIN 250 MG TABLET. PO SCH (08:45)
[2019-07-09] MEDS: CLOPIDOGREL BISULFATE 75 MG TABLET PO SCH (08:45)
[2019-07-09] MEDS: CETIRIZINE HCL 10 MG TABLET. PO SCH (08:45)
[2019-07-09] MEDS: ENOXAPARIN 40 MG/0.4 ML SYRINGE. SQ SCH (08:46)
[2019-07-09] MEDS: predniSONE 20 MG TABLET PO SCH (08:46)
[2019-07-09] MEDS: FERROUS SULFATE 325 MG TABLET. PO SCH ×2 (08:46→17:20)
[2019-07-09] MEDS: LIDOCAINE (700MG/PATCH) PATCH. TD SCH (08:46)
--- NOTE | 2019-07-09 09:08 | PDOC ---
PROGRESS NOTES Chief Complaint Chief Complaint A/P: Acute respiratory failure with hypercapnia ///AND HYPOXIC RESP FAILURE Acute exacerbation of COPD Atypical CP NEG TROPONIN I X 2 Abdominal pain -improving CAD - S/P PCI/MARLA to RCA 02/2018 Mild Cardiomyopathy - compensated HTN - controlled HLP - LDL not on goal Obesity ABDOMINAL DISCOMFORT LEG EDEMA, No evidence of deep venous thrombus involving the left lower extremity on the basis of color and spectral Doppler imaging 07/08 History of Present Illness History of Present Illness Ms Stevens is a 59 yo F w/ PMHx hypertension, dyslipidemia, coronary artery disease status post CABG, COPD on 2 L of oxygen who presents with complaint of shortness of breath and cough. Cough that sometimes is productive with yellow and green sputum for the last 2 weeks associated with constant shortness of breath that getting worse with supine position and light activity. Also complaining of myalgia and subjective fever, sore throat and earache and denies vomiting, diarrhea, urinary symptoms, some left and right chest discomfort, RUQ PAIN AFTER MEALS NOTED NEW. CXR and RUQ US were relatively unrevealing. Influenza screen negative. ABG 7.37/61/62. Cardiology and pulmonology consulted. 07/04: Feeling more short of breath. Chest pain improved. RUQ pain improved. Now c/o nasal stuffiness, red itchy eyes and ear fullness bilaterally. Cough is tight. 07/06: STILL REQUIRES 3 LITER O2. She is upset that she thinks she is being given a diuretic at night and states she wants more salt with her food, states "There is nothing wrong with my heart, I can eat what I want", is requesting regular diet. I have advised her that she does have CAD and prior RCA stenting in 2018. She is insistent on dietary liberalization 07/07: Abdominal pain has improved a bit. New left lower leg swelling and pain, particularly in the calf. 07/08: US negative for DVT. SOB improved, still with cough. No CP. Plan: IV steroids change to PO Changed antibiotics to PO Added prn albuterol nebs F/u pulm recs and cardiology recs Added antihistamine and nasal corticosteroid Cont to wean O2 Lidoderm and tizanidine for neck spasms Vitals Vitals Vital Signs Date Time Temp Pulse Resp B/P (MAP) Pulse Ox O2 Delivery O2 Flow Rate FiO2 07/09/19 07:35 97 Nasal Cannula 2.0 07/09/19 03:00 97.6 68 18 146/83 (104) 97.6 Physical Exam General: Alert, Oriented X3, Cooperative, No acute distress Heart: Regular rate (SR), Normal S1, Normal S2, Other (unable to appreciate heart sounds due to adventitious sounds) Lungs: Wheezing, Crackles Abdomen: Normal bowel sounds, Soft, No tenderness Extremities: No clubbing, No cyanosis, No edema Skin: No breakdown, No significant lesion Comment Review of Relevant I have reviewed the following items paulette (where applicable) has been applied. Labs Microbiology 07/03/19 Blood Culture - Final, Complete NO GROWTH AFTER 5 DAYS Medications Current Medications Albuterol/ Ipratropium (Duoneb) 3 ml 1X ONCE NEB Last administered on 07/03/19at 11:28; Start 07/03/19 at 11:15; Stop 07/03/19 at 11:16; Status DC Methylprednisolone Sodium Succinate (SOLU-Medrol 125MG VIAL) 125 mg 1X ONCE IV Last administered on 07/03/19at 12:36; Start 07/03/19 at 11:15; Stop 07/03/19 at 11:16; Status DC Sodium Chloride 1,000 ml @ 100 mls/hr Q10H IV Last administered on 07/04/19at 08:17; Start 07/03/19 at 12:18; Stop 07/04/19 at 12:17; Status DC Ceftriaxone Sodium (Rocephin) 1 gm 1X ONCE IVP Last administered on 07/03/19at 12:35; Start 07/03/19 at 12:30; Stop 07/03/19 at 12:31; Status DC Alprazolam (Xanax) 0.25 mg BID PO Last administered on 07/05/19at 08:41; Start 07/03/19 at 21:00; Stop 07/05/19 at 09:39; Status DC Aspirin (Ecotrin) 81 mg DAILYWBKFT PO Last administered on 07/09/19at 08:45; Start 07/04/19 at 08:00 Clopidogrel Bisulfate (Plavix) 75 mg DAILYWBKFT PO Last administered on 07/09/19at 08:45; Start 07/04/19 at 08:00 Ferrous Sulfate (Iron Oral Solution) 300 mg BIDWMEALS PO Last administered on 07/07/19at 09:34; Start 07/03/19 at 17:00; Stop 07/07/19 at 17:21; Status DC Furosemide (Lasix) 20 mg DAILY16 PO Last administered on 07/08/19at 16:12; Start 07/03/19 at 16:00 Albuterol/ Ipratropium (Duoneb) 3 ml RTQID IH ; Start 07/03/19 at 16:00; Status UNV Montelukast Sodium (Singulair) 10 mg HS PO Last administered on 07/08/19at 21:15; Start 07/03/19 at 21:00 Potassium Chloride (Klor-Con) 10 meq DAILYWBKFT PO Last administered on 07/09/19at 08:45; Start 07/04/19 at 08:00 Sertraline HCl (Zoloft) 50 mg HS PO Last administered on 07/08/19at 21:15; Start 07/03/19 at 21:00 Budesonide (Pulmicort) 0.5 mg RTBID NEB Last administered on 07/09/19at 07:32; Start 07/03/19 at 20:00 Pantoprazole Sodium (Protonix) 40 mg DAILYAC PO Last administered on 07/09/19at 08:44; Start 07/04/19 at 07:30 Guaifenesin/ Codeine Phosphate (Robitussin Ac) 5 ml PRN Q6HRS PRN PO COUGH, 2ND CHOICE Last administered on 07/09/19at 00:02; Start 07/03/19 at 15:15 Sodium Chloride (Normal Saline Flush) 3 ml QSHIFT PRN IV AFTER MEDS AND BLOOD DRAWS; Start 07/03/19 at 15:00 Ondansetron HCl (Zofran) 4 mg PRN Q4HRS PRN IV NAUSEA/VOMITING; Start 07/03/19 at 15:00 Acetaminophen (Tylenol) 650 mg PRN Q4HRS PRN PO TEMP OVER 100.4F OR MILD PAIN; Start 07/03/19 at 15:00 Al Hydroxide/Mg Hydroxide (Mylanta Plus Xs) 30 ml PRN DAILY PRN PO HEARTBURN / GAS; Start 07/03/19 at 15:00 Clonidine HCl (Catapres) 0.1 mg PRN Q6HRS PRN PO SBP>160 OR DBP>90; Start 07/03/19 at 15:00 Docusate Sodium (Colace) 100 mg PRN BID PRN PO CONSTIPATION Last administered on 07/08/19at 13:34; Start 07/03/19 at 15:00 Albuterol/ Ipratropium (Duoneb) 3 ml Q4H NEB Last administered on 07/09/19at 07:32; Start 07/03/19 at 15:00 Guaifenesin (Robitussin) 200 mg PRN Q4HRS PRN PO COUGH, 1ST CHOICE Last administered on 07/06/19at 05:07; Start 07/03/19 at 15:00 Enoxaparin Sodium (Lovenox 40mg Syringe) 40 mg DAILY SQ Last administered on at 08:46; Start 07/04/19 at 09:00 Levofloxacin/ Dextrose 100 ml @ 100 mls/hr Q24H IV ; Start 07/03/19 at 15:00; Status UNV Azithromycin 500 mg/Sodium Chloride 250 ml @ 250 mls/hr DAILY IV Last administered on 07/05/19at 08:41; Start 07/03/19 at 16:00; Stop 07/05/19 at 09:43; Status DC Ceftriaxone Sodium (Rocephin) 1 gm DAILY IVP Last administered on 07/08/19at 09:34; Start 07/04/19 at 09:00; Stop 07/08/19 at 15:52; Status DC Albuterol Sulfate (Ventolin Neb Soln) 2.5 mg PRN Q4HRS PRN NEB SHORTNESS OF BREATH Last administered on 07/08/19at 00:25; Start 07/04/19 at 11:00 Methylprednisolone Sodium Succinate (SOLU-Medrol 40MG VIAL) 40 mg Q8HRS IV Last administered on 07/05/19at 06:13; Start 07/04/19 at 12:00; Stop 07/05/19 at 09:39; Status DC Fluticasone Propionate (Flonase) 2 spray DAILY NS Last administered on 07/09/19at 08:45; Start 07/04/19 at 11:00 Cetirizine HCl (ZyrTEC) 10 mg DAILY PO Last administered on 07/09/19at 08:45; Start 07/04/19 at 11:00 Atorvastatin Calcium (Lipitor) 40 mg QHS PO Last administered on 07/08/19at 21:15; Start 07/04/19 at 21:00 Lactobacillus Rhamnosus (Culturelle) 1 cap BID PO Last administered on 07/09/19at 08:45; Start 07/04/19 at 21:00 Alprazolam (Xanax) 0.25 mg PRN BID PRN PO anxiety; Start 07/05/19 at 21:00; Stop 07/07/19 at 15:07; Status DC Prednisone (Prednisone) 20 mg DAILY PO Last administered on 07/08/19at 09:31; Start 07/05/19 at 10:00; Stop 07/09/19 at 07:57; Status DC Azithromycin (Zithromax) 250 mg DAILY PO Last administered on 07/09/19at 08:45; Start 07/06/19 at 09:00 Sodium Chloride (Saline Mist Nasal) 1 ebonie PRN Q1HR PRN NS NASAL CONGESTION Last administered on 07/08/19at 09:35; Start 07/07/19 at 09:45 Tizanidine HCl (Zanaflex) 2 mg PRN Q8HRS PRN PO MUSCLE SPASMS Last administered on 07/07/19at 23:26; Start 07/07/19 at 15:15 Lidocaine (Lidoderm) 1 patch DAILY TD Last administered on 07/07/19at 17:23; Start 07/07/19 at 15:30 Miscellaneous (Lidoderm Patch Removal) 1 ea QHS MC ; Start 07/07/19 at 21:00 Ferrous Sulfate (Feosol) 325 mg BIDAFTMEAL PO Last administered on 07/09/19at 08:46; Start 07/07/19 at 18:00 Cefdinir (Omnicef) 300 mg BID PO Last administered on 07/09/19at 08:45; Start 07/09/19 at 09:00 Prednisone (Prednisone) 40 mg DAILY PO Last administered on 07/09/19at 08:46; Start 07/09/19 at 09:00 Active Scripts Active Prednisone 20 Mg Tablet 1 Tab PO DAILY 6 Days take three pills daily for 2 days then two pills daily for 2 days then one pill daily for 2 days. Levaquin (Levofloxacin) 500 Mg Tablet 1 Tab PO DAILY 3 Days [guaiFENesin/CODEINE 100mg/10mg] 5 ML Liquid 5 Ml PO PRN Q6HRS PRN Ferrous Sulfate 300 Mg/5 Ml Liquid 300 Mg PO BIDWMEALS 30 Days Potassium Chloride (Potassium Chloride) 10 Meq Capsule.er 1 Cap PO DAILY Reported Xanax (Alprazolam) 0.25 Mg Tablet 0.25 Mg PO BID Protonix (Pantoprazole Sodium) 20 Mg Tablet.dr 40 Mg PO DAILY Zoloft (Sertraline Hcl) 50 Mg Tablet 1 Tab PO HS Clopidogrel (Clopidogrel Bisulfate) 75 Mg Tablet 1 Tab PO DAILY Singulair Tablet (Montelukast Sodium) 10 Mg Tablet 1 Tab PO HS Lasix (Furosemide) 20 Mg Tablet 1 Tab PO DAILY16 Symbicort 160-4.5 Mcg Inhaler (Budesonide/Formoterol Fumarate) 10.2 Gm Hfa.aer.ad 10.2 Gm IH BID Albuterol Sulfate Hfa Inhaler (Albuterol Sulfate) 8.5 Gm Hfa.aer.ad 8.5 Gm IH PRN Duoneb 0.5 Mg-3 Mg/3 Ml Soln (Ipratropium/Albuterol Sulfate) 3 Ml Ampul.neb 3 Ml IH QID Aspir 81 (Aspirin) 81 Mg Tablet. 81 Mg PO DAILY Vitals/I & O Vital Sign - Last 24 Hours 07/08/19 07/08/19 07/08/19 07/08/19 11:00 11:03 15:00 15:05 Temp 99.0 99.1 99.0 99.1 Pulse 73 80 Resp 20 20 B/P (MAP) 138/73 (94) 141/88 (105) Pulse Ox 96 94 O2 Delivery Nasal Cannula Nasal Cannula Nasal Cannula Nasal Cannula O2 Flow Rate 2.0 2.0 07/08/19 07/08/19 07/08/19 07/08/19 19:00 19:32 20:18 23:00 Temp 98.8 97.6 98.8 97.6 Pulse 96 78 Resp 19 19 B/P (MAP) 136/76 (96) 142/86 (104) Pulse Ox 93 91 O2 Delivery Nasal Cannula Nasal Cannula Nasal Cannula Nasal Cannula O2 Flow Rate 2.0 2.0 07/09/19 07/09/19 07/09/19 07/09/19 00:08 03:00 04:09 07:35 Temp 97.6 97.6 Pulse 68 Resp 18 B/P (MAP) 146/83 (104) Pulse Ox 94 93 97 97 O2 Delivery Nasal Cannula Nasal Cannula Nasal Cannula Nasal Cannula O2 Flow Rate 2.0 2.0 2.0 2.0 Intake and Output 07/08/19 07/08/19 07/09/19 15:00 23:00 07:00 Intake Total 450 ml 710 ml 240 ml Balance 450 ml 710 ml 240 ml ZEB ASHLEY MD Jul 09, 2019 09:08
[2019-07-09] MEDS: DOCUSATE SODIUM 100 MG CAPSULE. PO PRN ×2 (09:15→18:01)
[2019-07-09 11:59] VITALS: BP 141/69
[2019-07-09 15:59] VITALS: BP 129/78
[2019-07-09] MEDS: FUROSEMIDE 20 MG TABLET PO SCH (17:20)
[2019-07-09] MEDS: tiZANidine 4 MG TABLET. PO PRN (17:21)
[2019-07-09 19:00] VITALS: BP 123/69
[2019-07-09] MEDS: PATCH REMOVAL. MC SCH (21:00)
[2019-07-09] MEDS: ATORVASTATIN CALCIUM 40 MG TABLET. PO SCH (21:06)
[2019-07-09] MEDS: MONTELUKAST SODIUM 10 MG TABLET. PO SCH (21:06)
[2019-07-09] MEDS: SERTRALINE 50 MG TABLET. PO SCH (21:06)
[2019-07-09 23:00] VITALS: BP 134/82
[2019-07-10] MEDS: IPRATRPIUM/ALBUTEROL 0.5/2.5MG 3 ML NEBU. NEB SCH ×4 (00:05→12:10)
[2019-07-10 03:00] VITALS: BP 124/78
[2019-07-10 07:00] VITALS: BP 130/72
--- NOTE | 2019-07-10 07:38 | PDOC ---
PULMONARY PROGRESS NOTES Subjective PT ABOUT THE SAME Vitals Vital Signs Date Time Temp Pulse Resp B/P (MAP) Pulse Ox O2 Delivery O2 Flow Rate FiO2 07/10/19 03:24 97 Nasal Cannula 2.0 07/10/19 03:00 97.8 75 20 124/78 (93) 97.8 ROS: No Nausea, No Chest Pain, No Abdominal Pain, No Increase Cough General: Alert, Oriented X4 Lungs: Wheezing, Crackles Cardiovascular: S1, S2 Abdomen: Soft, Non-tender Neuro Exam: Alert Extremities: Other (trace BLE edema ) Skin: Warm, Dry Medications Active Scripts Medications Dose Route/Sig Max Daily Dose Days Date Category Dose Instructions Prednisone 20 Mg Tablet 1 Tab PO DAILY 6 03/28/19 Rx take three pills daily for 2 days then two pills daily for 2 days then one pill daily for 2 days. Levaquin (Levofloxacin) 500 Mg Tablet 1 Tab PO DAILY 3 03/28/19 Rx [guaiFENesin/CODEINE 100mg/10mg] 5 ML Liquid 5 Ml PO PRN Q6HRS PRN 03/28/19 Rx Xanax (Alprazolam) 0.25 Mg Tablet 0.25 Mg PO BID 03/24/19 Reported Protonix (Pantoprazole Sodium) 20 Mg Tablet.dr 40 Mg PO DAILY 01/13/19 Reported Ferrous Sulfate 300 Mg/5 Ml Liquid 300 Mg PO BIDWMEALS 30 08/29/18 Rx Zoloft (Sertraline Hcl) 50 Mg Tablet 1 Tab PO HS 05/10/18 Reported Clopidogrel (Clopidogrel Bisulfate) 75 Mg Tablet 1 Tab PO DAILY 02/25/18 Reported Potassium Chloride (Potassium Chloride) 10 Meq Capsule.er 1 Cap PO DAILY 04/26/15 Rx Singulair Tablet (Montelukast Sodium) 10 Mg Tablet 1 Tab PO HS 04/27/14 Reported Lasix (Furosemide) 20 Mg Tablet 1 Tab PO DAILY16 04/27/14 Reported Symbicort 160-4.5 Mcg Inhaler (Budesonide/Formoterol Fumarate) 10.2 Gm Hfa.aer.ad 10.2 Gm IH BID 07/28/13 Reported Albuterol Sulfate Hfa Inhaler (Albuterol Sulfate) 8.5 Gm Hfa.aer.ad 8.5 Gm IH PRN 07/28/13 Reported Duoneb 0.5 Mg-3 Mg/3 Ml Soln (Ipratropium/Albuterol Sulfate) 3 Ml Ampul.neb 3 Ml IH QID 07/28/13 Reported Aspir 81 (Aspirin) 81 Mg Tablet.dr 81 Mg PO DAILY 07/28/13 Reported Impression . IMPRESSION: 1. Acute on chronic hypoxic respiratory failure secondary to acute exacerbation of chronic obstructive pulmonary disease and acute bronchitis. 2. Cough, combination of viral and possible bacterial bronchitis. 3. No definite consolidation seen o n the chest x-ray. 4. CHRONIC HYPERCAPNEA RESP FAILURE Plan . DC HOME FOLLOW UP WITH ME IN OFFICE GLENIS SCHWARTZ MD Jul 10, 2019 07:38
[2019-07-10] MEDS: BUDESONIDE 0.5 MG/2 ML NEBU. NEB SCH (08:26)
[2019-07-10] MEDS: FLUTICASONE 50MCG/NASAL SPRAY 16GM BOTTLE. NS SCH (09:00)
[2019-07-10] MEDS: LIDOCAINE (700MG/PATCH) PATCH. TD SCH (09:00)
[2019-07-10] MEDS ORDERED: TIZA4TAB2 PO (09:15)
[2019-07-10] MEDS ORDERED: ATOR40TA59 PO (09:15)
[2019-07-10] MEDS ORDERED: CETI10TA16 PO (09:15)
[2019-07-10] MEDS ORDERED: CEFD300C PO (09:15)
[2019-07-10] MEDS ORDERED: PRED20TA PO (09:15)
[2019-07-10] MEDS ORDERED: FLUT16SP NS (09:15)
[2019-07-10] MEDS: LACTOBACILLUS RHAMNOSUS GG 1 CAPSULE. PO SCH (10:01)
[2019-07-10] MEDS: CLOPIDOGREL BISULFATE 75 MG TABLET PO SCH (10:01)
[2019-07-10] MEDS: CEFDINIR 300 MG CAPSULE PO SCH (10:01)
[2019-07-10] MEDS: FERROUS SULFATE 325 MG TABLET. PO SCH (10:01)
[2019-07-10] MEDS: PANTOPRAZOLE 40 MG TABLET.DR. PO SCH (10:01)
[2019-07-10] MEDS: ASPIRIN ENTERIC COATED 81 MG TABLET.DR. PO SCH (10:01)
[2019-07-10] MEDS: CETIRIZINE HCL 10 MG TABLET. PO SCH (10:02)
[2019-07-10] MEDS: predniSONE 20 MG TABLET PO SCH (10:03)
[2019-07-10] MEDS: POTASSIUM CHLORIDE 10 MEQ TABLET.ER. PO SCH (10:03)
[2019-07-10] MEDS: ENOXAPARIN 40 MG/0.4 ML SYRINGE. SQ SCH (10:04)
[2019-07-10] MEDS: AZITHROMYCIN 250 MG TABLET. PO SCH (10:10)
[2019-07-10] MEDS: DOCUSATE SODIUM 100 MG CAPSULE. PO PRN (10:25)
[2019-07-10 10:52] VITALS: BP 131/69
--- NOTE | 2019-07-10 12:16 | PDOC3 ---
Discharge Summary Visit Information Date of Admission: Jul 03, 2019 Date of Discharge: Jul 10, 2019 Admitting Diagnosis Comment: 1. Acute on chronic hypoxic respiratory failure secondary to acute exacerbation of chronic obstructive pulmonary disease and acute bronchitis. 2. Cough, combination of viral and possible bacterial bronchitis. 3. No definite consolidation seen on the chest x-ray. 4. ABGs with compensated hypercapnia. Brief Hospital Course Allergies Allergies Coded Allergies Type Severity Reaction Last Updated Verified iron Allergy Severe 08/26/18 Yes Penicillins Allergy Intermediate rash 03/03/16 Yes morphine Allergy Intermediate Rash-PERCOCET OK 03/03/16 Yes benzonatate Adverse Reaction Intermediate Itching 05/14/18 Yes Vital Signs Vital Signs Date Time Temp Pulse Resp B/P (MAP) Pulse Ox O2 Delivery O2 Flow Rate FiO2 07/10/19 12:12 Nasal Cannula 2.0 07/10/19 10:52 98.1 87 17 131/69 (89) 90 98.1 Brief Hospital Course Ms. Stevens is a 59 old with known COPD, still smokes, admitted for exacerb with normal CXR, SHe has hypercapnea that is compensating. She declined HH Home today and i counselled on her cigar use ALso requested work excuse and pro air refill TApering pred on chart Dw SW and pt seen and examined consults: pulmo Proc; none dc < 30 Discharge Information Condition at Discharge: Improved, Stable Disposition/Orders: D/C to Home Scheduled Alprazolam (Xanax) 0.25 Mg Tablet, 0.25 MG PO BID for anxiety, Ref 0 (Reported) Entered as Reported by: TRENT CLARK on 03/24/192056 Last Action: Continued on 07/03/191453 by CORWIN FLOREZ MD Aspirin (Aspir 81) 81 Mg Tablet.dr, 81 MG PO DAILY, (Reported) Entered as Reported by: CIERRA DAI on 07/28/13 1118 Last Action: Continued on 07/03/191453 by CORWIN FLOREZ MD Atorvastatin Calcium (Atorvastatin Calcium) 40 Mg Tablet, 40 MG PO QHS for lipids, #60 Prescribed by: SUE MARINO on 07/10/19 0915 Budesonide/Formoterol Fumarate (Symbicort 160-4.5 Mcg Inhaler) 10.2 Gm Hfa.aer.ad, 10.2 GM IH BID, (Reported) Entered as Reported by: CIERRA DAI on 07/28/13 1131 Last Action: Converted on 07/03/19 145 by CORWIN FLOREZ MD Cefdinir (Cefdinir) 300 Mg Capsule, 300 MG PO BID for brnchitis for 7 Days, #14 Prescribed by: SUE MARINO on 07/10/19 0915 Cetirizine Hcl (Cetirizine Hcl) 10 Mg Tablet, 10 MG PO DAILY for OTC, #30 Prescribed by: SUE MARINO on 07/10/19 0915 Clopidogrel Bisulfate (Clopidogrel) 75 Mg Tablet, 1 TAB PO DAILY, #90 Ref 1 (Reported) Entered as Reported by: BLESSING LEON on 02/25/18 1401 Last Action: Continued on 07/03/191453 by CORWIN FLOREZ MD Ferrous Sulfate (Ferrous Sulfate) 300 Mg/5 Ml Liquid, 300 MG PO BIDWMEALS for iron deficiency for 30 Days, #60 Prescribed by: ZEB ASHLEY MD on 08/29/18 1033 Last Action: Continued on 07/03/191453 by CORWIN FLOREZ MD Fluticasone Propionate (Fluticasone Propionate Nasal Glade) 16 Gm Glade.susp, 2 SPRAY NS DAILY for nasal congestuon for 30 Days Prescribed by: SUE MARINO on 07/10/19 0915 Furosemide (Lasix) 20 Mg Tablet, 1 TAB PO DAILY16 for fluid retention, #90 Ref 1 (Reported) Entered as Reported by: SHARON HOFFMAN on 04/27/14 1333 Last Action: Continued on 07/03/191453 by CORWIN FLOREZ MD Ipratropium/Albuterol Sulfate (Duoneb 0.5 Mg-3 Mg/3 Ml Soln) 3 Ml Ampul.neb, 3 ML IH QID, (Reported) Entered as Reported by: CIERRA DAI on 07/28/13 1128 Last Action: Continued on 07/03/191453 by CORWIN FLOREZ MD Montelukast Sodium (Singulair Tablet ) 10 Mg Tablet, 1 TAB PO HS for COPD, #90 Ref 1 (Reported) Entered as Reported by: SHARON HOFFMAN on 04/27/14 1333 Last Action: Continued on 07/03/191453 by CORWIN FLOREZ MD Pantoprazole Sodium (Protonix) 20 Mg Tablet.dr, 40 MG PO DAILY for gerd, (Reported) Entered as Reported by: Diana Calero on 01/13/19 0818 Last Action: Converted on 07/03/191453 by CORWIN FLOREZ MD Potassium Chloride (Potassium Chloride ) 10 Meq Capsule.er, 1 CAP PO DAILY, #30 Ref 5 Prescribed by: CIERRA ORTEGA on 04/26/15 0751 Last Action: Continued on 07/03/191453 by CORWIN FLOREZ MD Prednisone (Prednisone) 20 Mg Tablet, 40 MG PO DAILY for bronchitis for 6 Days, #12 daily x 2 days then 30 mg daily x 2 days then 10 mg daily x 2 days then STOP Prescribed by: SUE MARINO on 07/10/19 0915 Sertraline Hcl (Zoloft) 50 Mg Tablet, 1 TAB PO HS for anxiety, #30 Ref 2 (Reported) Entered as Reported by: RAIMUNDO WOODS on 05/10/18 1811 Last Action: Continued on 07/03/191453 by CORWIN FLOREZ MD Scheduled PRN Albuterol Sulfate (Albuterol Sulfate Hfa Inhaler) 8.5 Gm Hfa.aer.ad, 8.5 GM IH, (Reported) Entered as Reported by: CIERRA DAI on 07/28/13 1130 Last Action: HELD on 07/03/191453 by CORWIN FLOREZ MD Tizanidine Hcl (Tizanidine Hcl) 4 Mg Tablet, 2 MG PO PRN Q8HRS PRN for MUSCLE SPASMS, #30 Prescribed by: SUE MARINO on 07/10/19 0915 [guaiFENesin/CODEINE 100mg/10mg] 5 ML LIQUID, 5 ML PO PRN Q6HRS PRN for COUGH Prescribed by: GUZMAN GALLEGOS on 03/28/19 075 Last Action: Converted on 07/03/191453 by CORWIN FLOREZ MD Discontinued Medications Levofloxacin (Levaquin) 500 Mg Tablet, 1 TAB PO DAILY for pneumonia for 3 Days, #3 Ref 0 Prescribed by: GUZMAN GALLEGOS on 03/28/19 075 Last Action: HELD on 07/03/191453 by CORWIN FLOREZ MD Prednisone (Prednisone) 20 Mg Tablet, 1 TAB PO DAILY for COPD for 6 Days, #12 take three pills daily for 2 days then two pills daily for 2 days then one pill daily for 2 days. Prescribed by: GUZMAN GALLEGOS on 03/28/19 0753 Last Action: HELD on 07/03/191453 by MD JAMILA IRVING CHERRIE Y MD Jul 10, 2019 12:16
[2019-07-10 15:00] VITALS: BP 134/70
== END 2019-07-10 15:45 | disposition home or self-care (01) | DRG 189 ==
LOC: ER 10:43 → 5 SOUTH 12:05 → 6 SOUTH 14:10 → 5 SOUTH 07-05 16:15
PROVIDERS: ADMIT Family Medicine; ATTEND Family Medicine
DX: J96.21 Acute and chronic respiratory failure with hypoxia (principal); I25.110 Atherosclerotic heart disease of native coronary artery with unstable angina pectoris; I42.9 Cardiomyopathy, unspecified; I50.22 Chronic systolic (congestive) heart failure; J44.0 Chronic obstructive pulmonary disease with (acute) lower respiratory infection; J44.1 Chronic obstructive pulmonary disease with (acute) exacerbation; E66.01 Morbid (severe) obesity due to excess calories; J96.22 Acute and chronic respiratory failure with hypercapnia; E78.00 Pure hypercholesterolemia, unspecified; E78.5 Hyperlipidemia, unspecified; I11.0 Hypertensive heart disease with heart failure; I27.20 Pulmonary hypertension, unspecified; F32.9 Major depressive disorder, single episode, unspecified; F41.9 Anxiety disorder, unspecified; M19.90 Unspecified osteoarthritis, unspecified site; J20.9 Acute bronchitis, unspecified; I73.9 Peripheral vascular disease, unspecified; K21.9 Gastro-esophageal reflux disease without esophagitis; Z82.49 Family history of ischemic heart disease and other diseases of the circulatory system; Z82.5 Family history of asthma and other chronic lower respiratory diseases; Z87.891 Personal history of nicotine dependence; Z90.710 Acquired absence of both cervix and uterus; Z95.1 Presence of aortocoronary bypass graft; Z95.5 Presence of coronary angioplasty implant and graft; Z99.81 Dependence on supplemental oxygen; Z87.440 Personal history of urinary (tract) infections; Z88.5 Allergy status to narcotic agent; Z88.0 Allergy status to penicillin; Z88.8 Allergy status to other drugs, medicaments and biological substances; Z79.899 Other long term (current) drug therapy; Z79.82 Long term (current) use of aspirin; Z68.33 Body mass index [BMI] 33.0-33.9, adult
CPT/HCPCS: 36415; 36600; 71045; 76700; 80048; 80053; 82550; 82805; 83605; 83690; 83735; 83880; 84484; 85025; 85610; 87040; 87804; 93005; 93308; 93971; 94640; 94760; 96374; 96375; J0456; J0696; J1650; J2920; J2930; J7030; J7050; J7512; J7613; J7620; J7626; Q0144; 97110; 97530; 97535; 99285-25; G0378

== ENCOUNTER → 2019-08-17 | Outpatient (CLI) | payer OTHER ==
[~2019-08-17] MED LIST changes: +ATOR40TA59 PO; +CEFD300C PO; +CETI10TA16 PO; +TIZA4TAB2 PO
--- NOTE | 2019-08-17 13:06 | RAD ---
History: Routine Screening. Technique: Bilateral digital mammographic routine views were obtained with 2-D and 3-D technique including use of CAD - computer aided detection. Comparison: 07/19/2018 and 07/14/2016. Findings: Breast Tissue Density A : The breast tissue is predominately fatty replaced. There are no suspicious masses, microcalcifications or areas of architectural distortion. Impression: Negative mammogram. BI-RADS Category 1: Negative. Normal interval followup. . A mammogram does not have 100% sensitivity and therefore a negative imaging study should not delay further work up of a suspicious abnormality. The patient will receive a letter with the results in the mail. Patient information is entered into the reminder system with a target due date for the next screening mammogram. The patient will receive a reminder. "Our facility is accredited by the [employer] Mammography Program."
== END | disposition home or self-care (01) ==
LOC: MAMMO 08:12
PROVIDERS: ATTEND Family Medicine
DX: Z12.31 Encounter for screening mammogram for malignant neoplasm of breast (principal)
CPT/HCPCS: 77063; 77067

== ENCOUNTER → 2019-11-13 | Outpatient (CLI) | payer OTHER ==
--- NOTE | 2019-11-13 14:04 | RAD ---
CT MAXILLOFACIAL WO CONTRAST DATE: 11/13/2019 2:30 PM INDICATION: Reason: CHRONIC ALLERGIC RHINITIS / Spl. Instructions: / History: . COMPARISON: None. TECHNIQUE: CT images of the paranasal sinuses were obtained without intravenous contrast. Coronal and sagittal reformatted images were performed at a separate workstation and reviewed. One or more of the following dose reduction techniques were utilized: Automated exposure control (AEC), Adjustment of mA and/or kV according to patient size, Use of iterative reconstruction technique such as ASiR, CT scan done according to ALARA and image gently/image wisely FINDINGS: The maxillary, ethmoid, sphenoid, and frontal sinuses are clear. No air-fluid levels. No significant mucoperiosteal thickening. The osteomeatal units are patent. Anterior nasal septum is slightly deviated to the right. The visualized osseous structures are otherwise normal. The visualized orbits and globes are normal. The visualized brain parenchyma is normal in attenuation. IMPRESSION: No evidence of inflammatory sinonasal disease. Electronically signed by: Oscar Crabtree MD (11/13/2019 2:02 PM) [facility]
== END | disposition home or self-care (01) ==
LOC: CT 13:33
PROVIDERS: ATTEND Family Medicine
DX: J30.9 Allergic rhinitis, unspecified (principal)
CPT/HCPCS: 70486

== ENCOUNTER → 2019-11-15 | Outpatient (CLI) | payer OTHER ==
[2019-11-15 09:06] LABS: HEMOGLOBIN 13.4 g/dL (12.0-15.5); RED BLOOD COUNT 4.41 x10^6/uL (3.50-5.40); RED CELL DISTRIBUTION WIDTH 14.1 % (11.5-14.5)
[2019-11-15 09:27] LABS: ALBUMIN 3.7 g/dL (3.4-5.0); ALBUMIN/GLOBULIN RATIO 1.3 (1.0-1.7); CALCIUM 8.3 mg/dL (8.5-10.1); CHOLESTEROL/HDL RATIO 2.3; CREATININE 0.8 mg/dL (0.6-1.0); GFR 88.2; POTASSIUM 3.6 mmol/L (3.5-5.1); TOTAL BILIRUBIN 0.6 mg/dL (0.2-1.0); TOTAL PROTEIN 6.6 g/dL (6.4-8.2)
[2019-11-16 01:08] LABS: HEMOGLOBIN A1C 6.6 % (4.8-5.6)
== END ==
LOC: LAB 07:59
PROVIDERS: ATTEND Family Medicine
DX: R73.09 Other abnormal glucose (principal); D60.9 Acquired pure red cell aplasia, unspecified; E55.9 Vitamin D deficiency, unspecified; E78.5 Hyperlipidemia, unspecified
CPT/HCPCS: 36415; 80053; 80061; 82306; 83036; 84436; 84443; 85027

== ENCOUNTER 2019-12-20 16:53 | Emergency (ER) | payer OTHER ==
[~2019-12-20] VITALS: Ht 152.4 cm; Wt 78.0 kg
[2019-12-20] MEDS ORDERED: IPRATRPIUM/ALBUTEROL 0.5/2.5MG 3 ML NEBU. NEB ONE (17:15)
[2019-12-20] MEDS ORDERED: DEXAMETHASONE SOD PHOS 4 MG/ML VIAL IVP ONE (17:15)
--- NOTE | 2019-12-20 17:19 | RAD ---
EXAM: Chest, single view. HISTORY: COPD. COMPARISON: 07/03/2019 FINDINGS: A frontal view of the chest is obtained. There is no infiltrate, pleural effusion or pneumothorax. There are dilated right greater than left central pulmonary arteries. IMPRESSION: 1. No acute bony finding. 2. Stable dilated central pulmonary arteries. This can be seen with pulmonary artery hypertension. Electronically signed by: Tiara Finch MD (12/20/2019 5:16 PM) [id number]
[2019-12-20 17:44] LABS: BASO # 0.1 x10^3/uL (0.0-0.2); BASO % 1 % (0-3); EOS % 0 % (0-3); HEMATOCRIT 38.6 % (36.0-47.0); HEMOGLOBIN 12.9 g/dL (12.0-15.5); LYMPH # 1.1 x10^3/uL (1.0-4.8); LYMPH % 12 % (24-48); MEAN CORPUSCULAR HEMOGLOBIN 30 pg (25-35); MEAN CORPUSCULAR HGB CONC 33 g/dL (31-37); MEAN CORPUSCULAR VOLUME 90 fL (79-100); MONO # 0.7 x10^3/uL (0.0-1.1); MONO % 8 % (0-9); NEUT # 7.2 x10^3/uL (1.8-7.7); NEUT % 80 % (31-73); PLATELET COUNT 283 x10^3/uL (140-400); RED BLOOD COUNT 4.28 x10^6/uL (3.50-5.40); RED CELL DISTRIBUTION WIDTH 14.2 % (11.5-14.5)
--- NOTE | 2019-12-20 18:02 | PHYS DOC ---
Past Medical History Past Medical History: CAD, COPD, High Cholesterol, Hypertension, Other Additional Past Medical Histor: CHRONIC BRONCHITIS (GINO SMALL MD) Past Surgical History: Angioplasty, Hysterectomy, Tonsillectomy, Other Additional Past Surgical Histo: HEART CATH,EXP SURG X4, laproscopy (GINO SMALL MD) Smoking Status: Former Smoker Alcohol Use: None Drug Use: None (GINO SMALL MD) General Adult EDM: Chief Complaint: SHORTNESS OF BREATH HPI: HPI: Patient is a 59 year old [f__sex] who presents with [] (GINO SMALL MD) Review of Systems: Review of Systems: Constitutional: Denies fever or chills. [] Eyes: Denies change in visual acuity. [] HENT: Denies nasal congestion or sore throat. [] Respiratory: Denies cough or shortness of breath. [] Cardiovascular: Denies chest pain or edema. [] GI: Denies abdominal pain, nausea, vomiting, bloody stools or diarrhea. [] : Denies dysuria. [] Musculoskeletal: Denies back pain or joint pain. [] Integument: Denies rash. [] Neurologic: Denies headache, focal weakness or sensory changes. [] Endocrine: Denies polyuria or polydipsia. [] Lymphatic: Denies swollen glands. [] Psychiatric: Denies depression or anxiety. [] (GINO SMALL MD) Heart Score: Risk Factors: Risk Factors: DM, Current or recent (<one month) smoker, HTN, HLP, family history of CAD, obesity. Risk Scores: Score 0 - 3: 2.5% MACE over next 6 weeks - Discharge Home Score 4 - 6: 20.3% MACE over next 6 weeks - Admit for Clinical Observation Score 7 - 10: 72.7% MACE over next 6 weeks - Early Invasive Strategies (GINO SMALL MD) Current Medications: Current Medications Medications (Trade) Dose Ordered Sig/Umang Start Time Stop Time Status Last Admin Dose Admin Albuterol/ Ipratropium (Duoneb) 3 ml 1X ONCE 12/20/19 17:15 12/20/19 17:17 DC 12/20/19 17:52 3 ML Dexamethasone Sodium Phosphate (Decadron) 10 mg 1X ONCE 12/20/19 17:15 12/20/19 17:17 DC (GINO SMALL MD) Allergies: Allergies: Allergies Coded Allergies Type Severity Reaction Last Updated Verified iron Allergy Severe Unknown 10/16/19 Yes Penicillins Allergy Intermediate rash 03/03/16 Yes morphine Allergy Intermediate Rash-PERCOCET OK 03/03/16 Yes benzonatate Adverse Reaction Intermediate Itching 05/14/18 Yes (GINO SMALL MD) Physical Exam: PE: Constitutional: Well developed, well nourished, no acute distress, non-toxic appearance. [] HENT: Normocephalic, atraumatic, bilateral external ears normal, oropharynx moist, no oral exudates, nose normal. [] Eyes: PERRLA, EOMI, conjunctiva normal, no discharge. [] Neck: Normal range of motion, no tenderness, supple, no stridor. [] Cardiovascular:Heart rate regular rhythm, no murmur [] Lungs & Thorax: Bilateral breath sounds clear to auscultation [] Abdomen: Bowel sounds normal, soft, no tenderness, no masses, no pulsatile masses. [] Skin: Warm, dry, no erythema, no rash. [] Back: No tenderness, no CVA tenderness. [] Extremities: No tenderness, no cyanosis, no clubbing, ROM intact, no edema. [] Neurologic: Alert and oriented X 3, normal motor function, normal sensory function, no focal deficits noted. [] Psychologic: Affect normal, judgement normal, mood normal. [] (GINO SMALL MD) Current Patient Data: Labs: Laboratory Tests Test 12/20/19 17:31 White Blood Count 9.0 x10^3/uL (4.0-11.0) Red Blood Count 4.28 x10^6/uL (3.50-5.40) Hemoglobin 12.9 g/dL (12.0-15.5) Hematocrit 38.6 % (36.0-47.0) Mean Corpuscular Volume 90 fL (79-100) Mean Corpuscular Hemoglobin 30 pg (25-35) Mean Corpuscular Hemoglobin Concent 33 g/dL (31-37) Red Cell Distribution Width 14.2 % (11.5-14.5) Platelet Count 283 x10^3/uL (140-400) Neutrophils (%) (Auto) 80 % (31-73) H Lymphocytes (%) (Auto) 12 % (24-48) L Monocytes (%) (Auto) 8 % (0-9) Eosinophils (%) (Auto) 0 % (0-3) Basophils (%) (Auto) 1 % (0-3) Neutrophils # (Auto) 7.2 x10^3/uL (1.8-7.7) Lymphocytes # (Auto) 1.1 x10^3/uL (1.0-4.8) Monocytes # (Auto) 0.7 x10^3/uL (0.0-1.1) Eosinophils # (Auto) 0.0 x10^3/uL (0.0-0.7) Basophils # (Auto) 0.1 x10^3/uL (0.0-0.2) Laboratory Tests 12/20/19 17:31 Vital Signs: Vital Signs Date Time Temp Pulse Resp B/P (MAP) Pulse Ox O2 Delivery O2 Flow Rate FiO2 12/20/19 17:52 97 Nasal Cannula 2.0 12/20/19 17:44 99.1 110 16 172/102 (125) 99.1 (GINO SMALL MD) EKG: EKG: [] (GINO SMALL MD) Radiology/Procedures: Radiology/Procedures: [] (GINO SMALL MD) Course & Med Decision Making: Course & Med Decision Making Pertinent Labs and Imaging studies reviewed. (See chart for details) [] (GINO SMALL MD) Course & Med Decision Making Assumed care at shift change. Disposition pending re-evaluation and labs. Patient states she feels much better. Labs reviewed - patient did have an elvated CPK - 400's, Patient states she was just started on crestor 2 weeks ago. Advised patient to follow up with PCP regarding CPK Patient kidney function within normal limits. Patient will be discharged home-- she is to follow up with her pcp. Return to ER if breathing issues return. Patient states she does not need a refill of medicaitons. (TORRI LEIGH DO) [place] Disclaimer: Dragon Disclaimer: This electronic medical record was generated, in whole or in part, using a voice recognition dictation system. (GINO SMALL MD) Departure Departure Impression: Primary Impression: COPD exacerbation Additional Impression: Elevated CK Disposition: HOME, SELF-CARE Condition: STABLE Referrals: GUZMAN GALLEGOS MD (PCP) Patient Instructions: Chronic Obstructive Pulmonary Disease Justicifation of Admission Dx: Justifications for Admission: Justification of Admission Dx: Yes (GINO SMALL MD) GINO SMALL MD Dec 20, 2019 18:02 TORRI LEIGH DO Dec 20, 2019 19:40
[2019-12-20 19:17] LABS: CALCIUM 8.8 mg/dL (8.5-10.1); CREATININE 0.8 mg/dL (0.6-1.0)
[2019-12-20 19:18] LABS: GFR 88.2; POTASSIUM 3.8 mmol/L (3.5-5.1)
[2019-12-20 19:20] LABS: ALBUMIN 3.8 g/dL (3.4-5.0); ALBUMIN/GLOBULIN RATIO 1.2 (1.0-1.7); TOTAL BILIRUBIN 0.3 mg/dL (0.2-1.0); TOTAL PROTEIN 6.9 g/dL (6.4-8.2)
[2019-12-20 19:34] VITALS: BP 161/86
--- NOTE | 2019-12-21 06:12 | EKG ---
[facility] [address] [place] [address] Test Date: 2019-12-20 Test Time: 17:14:29 Pat Name: EDDI QUEZADA Department: Room: Gender: F Scullion Chief: : 1960 Requested By: GINO SMALL Order Number: [id number] Reading MD: Measurements Intervals [place] Rate: 94 P: 90 NM: 132 QRS: -158 QRSD: 92 T: 141 QT: 358 QTc: 453 Interpretive Statements SINUS RHYTHM ABNORMAL RIGHT SUPERIOR AXIS DEVIATION CONSIDER RIGHT VENTRICULAR HYPERTROPHY QRS(T) CONTOUR ABNORMALITY CONSIDER HIGH LATERAL INFARCT ABNORMAL ECG RI6.01 No previous ECG available for comparison
== END 2019-12-20 20:19 | disposition home or self-care (01) ==
LOC: ER 16:53
DX: J44.1 Chronic obstructive pulmonary disease with (acute) exacerbation (principal); R74.8 Abnormal levels of other serum enzymes; I11.9 Hypertensive heart disease without heart failure; J44.9 Chronic obstructive pulmonary disease, unspecified; E78.00 Pure hypercholesterolemia, unspecified; Z90.710 Acquired absence of both cervix and uterus; Z90.89 Acquired absence of other organs; Z98.890 Other specified postprocedural states; Z87.891 Personal history of nicotine dependence; Z88.0 Allergy status to penicillin; Z88.6 Allergy status to analgesic agent; Z88.8 Allergy status to other drugs, medicaments and biological substances
CPT/HCPCS: 36415; 71045; 80053; 82550; 83615; 83880; 84484; 85025; 85379; 86140; 93005; 94640; 96374; 99285; J1100

== ENCOUNTER → 2020-01-22 | Outpatient (CLI) | payer OTHER ==
[~2020-01-22] VITALS: Ht 152.4 cm; Wt 75.7 kg
[~2020-01-22] MED LIST changes: +SINCALIDE 1.52 MCG in IV NORMAL SALINE 50ML 30 ML IV ONE
--- NOTE | 2020-01-22 08:53 | RAD ---
Limited abdominal ultrasound: Reason: RUQ PAIN / Spl. Instructions: / History: , Comparison: , March 25, 2019 Realtime grayscale sonographic images of the abdomen were performed. Liver: negative Biliary tree: negative Gallbladder: negative Right Kidney: negative Impression: 1. Negative right upper quadrant ultrasound . Electronically signed by: Gregory Cates MD (01/22/2020 8:50 AM) [id number]
--- NOTE | 2020-01-22 10:51 | RAD ---
HEPATOBILIARY SCAN WITH EJECTION FRACTION History: Abdominal pain times months. Comparison: Limited abdominal ultrasound January 22, 2020. Procedure: Serial static images are obtained of the liver and biliary system in the frontal projection following IV administration of 5.5 mCi of Technetium 99m Choletec. After filling of the gallbladder, 1.5 mcg of sincalide were infused over 15 minutes and dynamic imaging continued over this period. The gallbladder ejection fraction was calculated. Findings: There is prompt hepatic clearance of tracer from the blood pool. There is homogeneous distribution throughout the liver. There is normal filling of the gallbladder and normal emptying into the biliary system and small bowel. The gallbladder ejection fraction measures 88% (normal gallbladder EF is 35% or greater). IMPRESSION: 1. The cystic duct and common bile duct are patent. Negative for acute cholecystitis. 2. The gallbladder ejection fraction is normal. Electronically signed by: Jake Man MD (01/22/2020 10:48 AM) [id number]
== END | disposition home or self-care (01) ==
LOC: US 12:26
PROVIDERS: ATTEND Internal Medicine Gastroenterology
DX: R10.13 Epigastric pain (principal); R10.11 Right upper quadrant pain
CPT/HCPCS: 76705; 78227; A9537; J2805

== ENCOUNTER → 2020-01-26 | Outpatient (CLI) | payer OTHER ==
[~2020-01-26] MED LIST changes: +REGADENOSON 0.4 MG/5 ML DISP.SYRIN. IV ONE; -SINCALIDE 1.52 MCG in IV NORMAL SALINE 50ML 30 ML IV ONE
--- NOTE | 2020-01-28 11:55 | RAD ---
MR#: [id number] Date of Study: 01/26/2020 Ordering Physician: TERA CASTILLO, Referring Physician: LUCIE AGUILAR Tech: MAXX Connolly, NIKHIL (R) (N) APPROVED REPORT Test Type: Pharmacological Stress Nurse/Tech: Belkis Berg RN Test Indications: Chest Pain Cardiac History: CAD-PTCA 2018, High cholesterol, See EMR. Medications: ASA, Plavix, See EMR. Medical History: DM, Liver Disease, See EMR. Resting ECG: SR Resting Heart Rate: 66 bpm Resting Blood Pressure: 156/89mmHg Pretest Chest Pain: No chest pain Nurse/Tech Notes Lungs clear, though diminished throughout. Heart tones regular. Consent: The procedure was explained to the patient in lay terms. Informed consent was witnessed. Janak eout was entered into [employer]. History and Stress Test performed by RT Yoan (R) (N) Pharm. Details Pharmacologic stress testing was performed using 0.4mg per 5ml of regadenoson given intravenously ove r 7-10 seconds. Stress Symptoms Dyspnea POST EXERCISE Reason for Termination: Infusion complete Max HR: 116 bpm Max Blood Pressure: 158/86mmHg Blood Pressure response to exercise: Normal blood pressure response during stress. Heart Rate response to exercise: WNL Chest Pain: No. Arrhythmia: Yes. PACs ST Change: No. INTERPRETATION Stress EKG Conclusion: Normal Imaging Protocol IMAGE PROTOCOL: Rest Tc-99m/stress Tc-99m 1 day Rest: Stress: Viability: Radiopharm.Tc99m [id number] Sestamibi [id number] 33mCi Img Date 01/26/2020 01/26/2020 Inj-Img [id number]. 60min. Rest Admin Site:IV - Right AntecubitalAdministrator:MAXX Connolly, NIKHIL (R)(N) Stress Admin Site: IV - Right AntecubitalAdministrator: RT Rocio Milton)(N) STRESS DATA End Diast. Vol.97.0mlAv. Heart Rate76.0bpm End Syst. Vol.29.0mlCO Index BSA0.0L/min Myocardial Keue103.0gEject. Cgjvzrep84.0% Stress Rates Pk. Fill Rate3.22EDV/secLVtime Pk. Fill 245.58msec Pk. Empty Rate4.21ESV/secLVtime Pk. Calze609.72msec 1/3 Pk. Fill0.80EDV/sec Stress Scores Regional WT2.00Summed WT10.00 Regional WM0.00Summed WM1.00 The rest and stress images show normal perfusion, normal contraction and thickening. LV Perf. Quant 17 Seg. SSS4.00 17 Seg. SRS0.00 17 Seg. SDS4.00 Stress Defect Extent (% LAD)6.90Rest Defect Extent (% LAD)2.50Rev. Defect Extent (% LAD)1.30 Stress Defect Extent (% LCX) 5.00Rest Defect Extent (% LCX)0.00Rev. Defect Extent (% LCX)0.00 Stress Defect Extent (% RCA)0.00Rest Defect Extent (% RCA)0.00Rev. Defect Extent (% RCA)0.00 Stress Defect Extent (% FRAN)4.80Rest Defect Extent (% FRNA)0.90Rev. Defect Extent (% FRAN)1.30 Other Information Quality:Average Risk Assessment: Low Risk Conclusion 1. No evidence of EKG changes with stress testing. 2. Normal perfusion at stress/rest. 3. Low risk study. 4. EF > 60%. Signed by : Tera Castillo, Electronically Approved : 01/28/2020 11:54:19
== END | disposition home or self-care (01) ==
LOC: NM 09:52
PROVIDERS: ATTEND Internal Medicine Cardiovascular Disease
DX: R07.9 Chest pain, unspecified (principal); I25.10 Atherosclerotic heart disease of native coronary artery without angina pectoris
CPT/HCPCS: 78452; 93017; A9500; J2785

== ENCOUNTER → 2020-03-14 | Outpatient (CLI) | payer OTHER ==
[~2020-03-14] MED LIST changes: -REGADENOSON 0.4 MG/5 ML DISP.SYRIN. IV ONE
[2020-03-14 09:17] LABS: ALBUMIN 3.8 g/dL (3.4-5.0); ALBUMIN/GLOBULIN RATIO 1.1 (1.0-1.7); CALCIUM 8.8 mg/dL (8.5-10.1); CREATININE 0.9 mg/dL (0.6-1.0); TOTAL BILIRUBIN 0.5 mg/dL (0.2-1.0); TOTAL PROTEIN 7.2 g/dL (6.4-8.2)
[2020-03-15 00:08] LABS: HEMOGLOBIN A1C 5.9 % (4.8-5.6)
== END | disposition home or self-care (01) ==
LOC: LAB 07:24
PROVIDERS: ATTEND Family Medicine
DX: E11.9 Type 2 diabetes mellitus without complications (principal); R74.8 Abnormal levels of other serum enzymes
CPT/HCPCS: 36415; 80053; 82550; 83036

== ENCOUNTER → 2020-07-04 | Outpatient (CLI) | payer OTHER ==
[2020-07-04 11:46] LABS: BASO % 1 % (0-3); EOS # 0.1 x10^3/uL (0.0-0.7); EOS % 1 % (0-3); HEMATOCRIT 39.4 % (36.0-47.0); HEMOGLOBIN 12.8 g/dL (12.0-15.5); LYMPH % 30 % (24-48); MEAN CORPUSCULAR HEMOGLOBIN 30 pg (25-35); MEAN CORPUSCULAR HGB CONC 32 g/dL (31-37); MEAN CORPUSCULAR VOLUME 91 fL (79-100); MONO % 15 % (0-9); NEUT # 3.5 x10^3/uL (1.8-7.7); NEUT % 53 % (31-73); PLATELET COUNT 231 x10^3/uL (140-400); RED BLOOD COUNT 4.34 x10^6/uL (3.50-5.40); RED CELL DISTRIBUTION WIDTH 14.2 % (11.5-14.5); WHITE BLOOD COUNT 6.7 x10^3/uL (4.0-11.0)
[2020-07-04 11:50] LABS: CALCIUM 8.8 mg/dL (8.5-10.1); POTASSIUM 3.8 mmol/L (3.5-5.1)
--- NOTE | 2020-07-04 16:22 | RAD ---
XR LUMBAR SPINE 4+V 07/04/2020 10:20 AM Indication: Acute midline low back pain COMPARISON: None available TECHNIQUE: 5 views of the lumbar spine are provided. Findings: Alignment of the lumbar spine is normal. Vertebral body heights are maintained. No acute fracture is identified. Disc heights are maintained. No significant endplate degenerative changes are identified. There is no significant facet arthropathy. No significant osseous neuroforaminal stenosis or spinal canal stenos is. Nonobstructive bowel gas pattern. Visualized portions of the sacrum appear intact. There is suggestio n of ectasia of infrarenal abdominal aorta with moderate calcified atheromatous plaque. Impression: No acute fracture or malalignment of the lumbar spine. Ectasia of infrarenal abdominal aorta with moderate calcified atheromatous plaque. Electronically signed by: Adrianne Goodman MD (07/04/2020 4:20 PM) [id number]
--- NOTE | 2020-07-04 16:24 | RAD ---
Cervical spine radiograph 07/04/2020 10:21 AM INDICATION: Neck pain, acute COMPARISON: None available. TECHNIQUE: Lateral, AP and odontoid views of the cervical spine are provided. FINDINGS: The cervical spine is visualized from the craniocervical junction through the cervicothoracic junctio n. Minimal retrolisthesis of C3 on C4 by 2 mm.. No acute fracture is visualized. Bone mineralization is within normal limits. Mild disc height loss at C6-C7 and C7-T1.. There is no prevertebral soft tis eric swelling. Mild facet and uncovertebral joint disease. There is no osseous spinal canal stenosis. The lateral masses of C1 articulate appropriately with the C2 vertebral body. IMPRESSION: No acute fracture . Mild cervical spondylosis. Electronically signed by: Adrianne Goodman MD (07/04/2020 4:21 PM) [id number]
--- NOTE | 2020-07-04 16:25 | RAD ---
Chest radiograph 07/04/2020 10:21 AM INDICATION: Shortness of breath COMPARISON: 12/20/2019 TECHNIQUE: Frontal and lateral views of the chest are provided. FINDINGS: The cardiomediastinal silhouette is within normal limits. There are no pleural effusions. There is no pulmonary vascular congestion. There is no pneumothorax. The lungs are clear. Stable right hilar prominence which may be vascular or associated lymphadenopath y. No significant osseous abnormality is identified. IMPRESSION: No acute cardiopulmonary process. Stable right hilar prominence which may be associated with lymphadenopathy or vascular prominence. Electronically signed by: Adrianne Goodman MD (07/04/2020 4:22 PM) [id number]
== END ==
LOC: LAB 09:55
PROVIDERS: ATTEND Family Medicine
DX: E55.9 Vitamin D deficiency, unspecified (principal); M79.10 Myalgia, unspecified site; R06.02 Shortness of breath; M54.2 Cervicalgia
CPT/HCPCS: 36415; 71046; 72040; 72110; 80048; 82306; 82550; 83036; 83605; 85025; 86141

== ENCOUNTER → 2020-09-04 | Outpatient (CLI) | payer OTHER ==
--- NOTE | 2020-09-04 10:36 | RAD ---
US HEAD/NECK SOFT TISSUE History:Reason: Localized Swelling, mass lump in neck / Spl. Instructions: / History: Comparison: None Technique: Sonographic examination of the right superior neck Findings: No ultrasound evidence of mass or fluid collection within the region of the patient's palpable concer n in the superior right neck superior to the thyroid. Impression: 1. No ultrasound evidence of abnormality within the region the patient's palpable concern. Recommend clinical follow-up. Electronically signed by: Galo Lopez DO (09/04/2020 10:34 AM) [id number]
== END ==
LOC: US 08:11
PROVIDERS: ATTEND Otolaryngology
DX: R22.1 Localized swelling, mass and lump, neck (principal)
CPT/HCPCS: 76536

== ENCOUNTER → 2020-09-06 | Outpatient (CLI) | payer OTHER ==
--- NOTE | 2020-09-06 14:48 | RAD ---
EXAMINATION: MRI LEFT THIGH WITHOUT IV CONTRAST CLINICAL HISTORY: Left thigh pain TECHNIQUE: Multiplanar multisequential images obtained through the through the left thigh without int ravenous contrast. COMPARISON: CT abdomen/pelvis 02/21/2019 FINDINGS: Partially visualized moderate to large areas of subchondral marrow edema/cystic changes in the anteri or superior femoral head and anterior and superior acetabulum. Findings suggestive of sequelae of ove rlying full-thickness chondral loss, but avascular necrosis of the femoral head is not excluded. No d efinitive evidence of articular surface collapse on limited evaluation. No significant subchondral cy stic changes appreciated on comparison CT. No evidence of acute fracture or suspicious marrow replacing process. No significant joint effusion. Tendons and muscles within normal limits. No evidence of soft tissue mass or organized collection. Incidentally noted sigmoid diverticulosis without evidence of diverticulitis. IMPRESSION: Degenerative changes left hip with moderate to marked full-thickness chondral wear as described, avas cular necrosis in the femoral head is not entirely excluded. Recommend clinical correlation and follo w-up with dedicated left hip radiographs. Electronically signed by: Jama King DO (09/06/2020 2:46 PM) [id number]
== END ==
LOC: MRI 08:20
PROVIDERS: ATTEND Nurse Practitioner Gerontology
DX: M16.12 Unilateral primary osteoarthritis, left hip (principal)
CPT/HCPCS: 73718

== ENCOUNTER → 2020-09-18 | Outpatient (CLI) | payer OTHER ==
[2020-09-18 08:25] LABS: BASO # 0.1 x10^3/uL (0.0-0.2); BASO % 1 % (0-3); EOS # 0.3 x10^3/uL (0.0-0.7); EOS % 5 % (0-3); HEMATOCRIT 40.2 % (36.0-47.0); LYMPH # 2.2 x10^3/uL (1.0-4.8); LYMPH % 33 % (24-48); MEAN CORPUSCULAR HEMOGLOBIN 29 pg (25-35); MEAN CORPUSCULAR HGB CONC 32 g/dL (31-37); MEAN CORPUSCULAR VOLUME 91 fL (79-100); MONO # 0.8 x10^3/uL (0.0-1.1); MONO % 12 % (0-9); NEUT # 3.4 x10^3/uL (1.8-7.7); NEUT % 50 % (31-73); PLATELET COUNT 231 x10^3/uL (140-400); RED BLOOD COUNT 4.43 x10^6/uL (3.50-5.40); RED CELL DISTRIBUTION WIDTH 14.3 % (11.5-14.5); WHITE BLOOD COUNT 6.7 x10^3/uL (4.0-11.0)
[2020-09-18 08:46] LABS: ALBUMIN 3.4 g/dL (3.4-5.0); ALBUMIN/GLOBULIN RATIO 1.1 (1.0-1.7); CALCIUM 8.4 mg/dL (8.5-10.1); CREATININE 0.9 mg/dL (0.6-1.0); GFR 76.8; POTASSIUM 4.2 mmol/L (3.5-5.1); TOTAL BILIRUBIN 0.5 mg/dL (0.2-1.0); TOTAL PROTEIN 6.6 g/dL (6.4-8.2)
[2020-09-18 08:47] LABS: CHOLESTEROL/HDL RATIO 3.3
== END ==
LOC: LAB 08:08
PROVIDERS: ATTEND Family Medicine
DX: E11.9 Type 2 diabetes mellitus without complications (principal); E78.5 Hyperlipidemia, unspecified; E55.9 Vitamin D deficiency, unspecified; D50.9 Iron deficiency anemia, unspecified
CPT/HCPCS: 36415; 80053; 80061; 82306; 85025

== ENCOUNTER → 2020-09-30 | Outpatient (CLI) | payer OTHER ==
--- NOTE | 2020-09-30 14:01 | RAD ---
EXAM: Bilateral screening mammogram. HISTORY: 60-year-old female presents for screening mammography. TECHNIQUE: Full-field digital craniocaudal and mediolateral oblique views of both breasts are obtaine d for evaluation. Computer aided detection was applied. COMPARISON: 08/17/2019 BREAST PARENCHYMAL DENSITY: Level B - Scattered fibroglandular densities. FINDINGS: There is no new suspicious mass, microcalcification or region of architectural distortion. IMPRESSION: BI-RADS Category 1: Negative. RECOMMENDATION: Annual mammography is recommended. If your mammogram demonstrates that you have dense breast tissue, which could hide abnormalities, and if you have other risk factors for breast cancer that have been identified, you might benefit from s upplemental screening tests that may be suggested by your ordering physician. Dense breast tissue, i n and of itself, is a relatively common condition. This information is not provided to cause undue c oncern, but rather to raise your awareness and to promote discussion with your physician regarding th e presence of other risk factors, in addition to dense breast tissue. A report of your mammography re sults will be sent to you and your physician. You should contact your physician if you have any ques tions or concerns regarding this report. Mammography is a sensitive method for finding small breast cancers, but it does not detect them all a nd is not a substitute for careful clinical examination. A negative mammogram does not negate a clin ically suspicious finding and should not result in delay in biopsying a clinically suspicious abnorma lity. PQRS compliance statement - Patient information was entered into a reminder system with a target due date for the next mammogram. "Our facility is accredited by the [employer] Mammography Program." Electronically signed by: Tiara Finch MD (09/30/2020 1:58 PM) [id number]
== END ==
LOC: MAMMO 13:17
PROVIDERS: ATTEND Family Medicine
DX: Z12.31 Encounter for screening mammogram for malignant neoplasm of breast (principal)
CPT/HCPCS: 77067

== ENCOUNTER 2020-10-21 15:14 | Inpatient (IN) | payer OTHER ==
[~2020-10-21] VITALS: Ht 152.4 cm; Wt 76.0 kg
[2020-10-21 16:09] LABS: BASO % 1 % (0-3); EOS # 0.3 x10^3/uL (0.0-0.7); EOS % 6 % (0-3); HEMATOCRIT 38.8 % (36.0-47.0); HEMOGLOBIN 12.8 g/dL (12.0-15.5); LYMPH # 1.8 x10^3/uL (1.0-4.8); LYMPH % 40 % (24-48); MEAN CORPUSCULAR HEMOGLOBIN 30 pg (25-35); MEAN CORPUSCULAR HGB CONC 33 g/dL (31-37); MEAN CORPUSCULAR VOLUME 91 fL (79-100); MONO # 0.7 x10^3/uL (0.0-1.1); MONO % 15 % (0-9); NEUT # 1.7 x10^3/uL (1.8-7.7); NEUT % 38 % (31-73); PLATELET COUNT 235 x10^3/uL (140-400); RED BLOOD COUNT 4.24 x10^6/uL (3.50-5.40); WHITE BLOOD COUNT 4.6 x10^3/uL (4.0-11.0)
--- NOTE | 2020-10-21 16:16 | RAD ---
XR CHEST 1V 10/21/2020 3:55 PM INDICATION: Chest pain COMPARISON: 07/04/2020 TECHNIQUE: Portable frontal view of the chest is provided. FINDINGS: The cardiomediastinal silhouette is similar in appearance. Lungs are clear. There are no significant pleural effusions. There is no pulmonary vascular congestion. No pneumothora x. No suspicious osseous abnormality. IMPRESSION: There is no acute cardiopulmonary process. Electronically signed by: Adrianne Goodman MD (10/21/2020 4:14 PM) [id number]
[2020-10-21 16:26] LABS: CALCIUM 8.8 mg/dL (8.5-10.1); CREATININE 0.6 mg/dL (0.6-1.0); GFR 122.6; POTASSIUM 4.6 mmol/L (3.5-5.1)
[2020-10-21 16:32] LABS: ALBUMIN/GLOBULIN RATIO 1.5 (1.0-1.7); TOTAL BILIRUBIN 0.5 mg/dL (0.2-1.0); TOTAL PROTEIN 6.6 g/dL (6.4-8.2)
[2020-10-21 16:46] LABS: BILIRUBIN,URINE NEGATIVE (NEG); CLARITY,URINE CLOUDY; COLOR,URINE YELLOW; NITRITE,URINE NEGATIVE (NEG); PROTEIN,URINE NEGATIVE (NEG-TRACE)
[2020-10-21 16:53] LABS: BACTERIA,URINE MODERATE /HPF (0-FEW)
[2020-10-21 16:54] LABS: WBC,URINE RARE /HPF (0-4)
[2020-10-21 16:55] LABS: RBC,URINE RARE /HPF (0-2)
--- NOTE | 2020-10-21 17:36 | EKG ---
[facility] [address] [place] [address] Test Date: 2020-10-21 Test Time: 15:31:43 Pat Name: EDDI QUEZADA Department: Room: Gender: F Pet Caretaker: : 1960 Requested By: PAVITHRA HERNÁNDEZ Order Number: [id number] Reading MD: Measurements Intervals [place] Rate: 77 P: 51 NC: 146 QRS: -31 QRSD: 76 T: 30 QT: 400 QTc: 455 Interpretive Statements SINUS RHYTHM ABNORMAL LEFT AXIS DEVIATION R-S TRANSITION ZONE IN V LEADS DISPLACED TO THE LEFT LEFT ANTERIOR FASCICULAR BLOCK QRS(T) CONTOUR ABNORMALITY CONSIDER ANTEROSEPTAL MYOCARDIAL DAMAGE ABNORMAL ECG RI6.02 No previous ECG available for comparison
[2020-10-21] MEDS ORDERED: IOHEXOL 350 MG/ML 100 ML VIAL. IV ONE (17:45)
[2020-10-21] MEDS ORDERED: CONTRAST GIVEN. MC PRN (17:45)
--- NOTE | 2020-10-21 17:46 | PDOC1 ---
History and Physical Date of Admission Date of Admission DATE: 10/21/20 TIME: 17:32 Identification/Chief Complaint Chief Complaint Shortness of breath Source Source: Patient History of Present Illness History of Present Illness Patient is a 60-year-old female past medical history COPD on 2 L at baseline who presents to the ED with complaints of worsening shortness of breath over the past 2 weeks. Her symptoms are worse with ambulation. She states that her symptoms have been ongoing for the past 2 months, and seen by her PCP and treated with doxycycline and prednisone with brief improvement. She reports associated cough productive of yellow sputum. She lives at home with her and denies any sick contacts, fever, nausea, vomiting, or diarrhea. Discussed with ER provider, recommend obtaining CTA. Will admit patient for further medical management. Past Medical History Cardiovascular: CAD, CHF, HTN, Hyperlipidemia, Pulmonary hypertension, Other Pulmonary: Asthma, COPD, Pneumonia GI: Constipation, GERD Hepatobiliary: No pertinent hx Psych: Anxiety Musculoskeletal: Osteoarthritis Rheumatologic: No pertinent hx Infectious disease: No pertinent hx Renal/: UTI Endocrine: No pertinent hx Past Surgical History Past Surgical History: Tonsillectomy, Hysterectomy, Other Family History Family History: Asthma, Hypertension Social History Smoke: Quit ALCOHOL: none Drugs: None Current Medications Current Medications Active Scripts Active Prednisone 20 Mg Tablet 40 Mg PO DAILY 6 Days daily x 2 days then 30 mg daily x 2 days then 10 mg daily x 2 days then STOP Fluticasone Propionate Nasal [place] (Fluticasone Propionate) 16 Gm [place].susp 2 [place] NS DAILY 30 Days Atorvastatin Calcium 40 Mg Tablet 40 Mg PO QHS Tizanidine Hcl 4 Mg Tablet 2 Mg PO PRN Q8HRS PRN Cetirizine Hcl 10 Mg Tablet 10 Mg PO DAILY Cefdinir 300 Mg Capsule 300 Mg PO BID 7 Days [guaiFENesin/CODEINE 100mg/10mg] 5 ML Liquid 5 Ml PO PRN Q6HRS PRN Ferrous Sulfate 300 Mg/5 Ml Liquid 300 Mg PO BIDWMEALS 30 Days Potassium Chloride (Potassium Chloride) 10 Meq Capsule.er 1 Cap PO DAILY Reported Xanax (Alprazolam) 0.25 Mg Tablet 0.25 Mg PO BID Protonix (Pantoprazole Sodium) 20 Mg Tablet.dr 40 Mg PO DAILY Zoloft (Sertraline Hcl) 50 Mg Tablet 1 Tab PO HS Clopidogrel (Clopidogrel Bisulfate) 75 Mg Tablet 1 Tab PO DAILY Singulair Tablet (Montelukast Sodium) 10 Mg Tablet 1 Tab PO HS Lasix (Furosemide) 20 Mg Tablet 1 Tab PO DAILY16 Symbicort 160-4.5 Mcg Inhaler (Budesonide/Formoterol Fumarate) 10.2 Gm Hfa.aer.ad 10.2 Gm IH BID Albuterol Sulfate Hfa Inhaler (Albuterol Sulfate) 8.5 Gm Hfa.aer.ad 8.5 Gm IH PRN Duoneb 0.5 Mg-3 Mg/3 Ml Soln (Ipratropium/Albuterol Sulfate) 3 Ml Ampul.neb 3 Ml IH QID Aspir 81 (Aspirin) 81 Mg Tablet.dr 81 Mg PO DAILY Allergies Allergies: Coded Allergies: iron (Verified Allergy, Severe, Swelling, 10/21/20) Itching, swelling of hands with IV infusion; able to tolerate PO Penicillins (Verified Allergy, Intermediate, rash, 10/21/20) morphine (Verified Allergy, Intermediate, Rash-PERCOCET OK, 10/21/20) benzonatate (Verified Adverse Reaction, Intermediate, Itching, 10/21/20) ROS Review of System GENERAL: No history of weight change, weakness or fevers. SKIN: No bruising, hair changes or rashes. EYES: No blurred, double or loss of vision. NOSE AND THROAT: No history of nosebleeds, hoarseness or sore throat. HEART: Denies chest pain, denies palpitations. LUNGS: Cough, shortness of breath. Denies hemoptysis. GASTROINTESTINAL: Denies nausea, vomiting, abdominal pain. GENITOURINARY: Denies dysuria, frequency, urgency, hematuria. NEUROLOGIC: Denies history of numbness, tingling, tremor or weakness. PSYCHIATRIC: Denies anxiety, denies depression. ENDOCRINE: No history of heat or cold intolerance, polyuria or polydipsia. EXTREMITIES: Denies muscle weakness, joint pain, pain on walking or stiffness. Physical Exam Physical Exam General: Alert, Oriented X3, Cooperative, No acute distress HEENT: PERRLA, EOMI Lungs: Decreased breath sounds, faint expiratory wheezes bilaterally. Heart: RRR, no murmurs Cardiovascular: S1, S2 Abdomen: Normal bowel sounds, Soft, No tenderness Extremities: No clubbing, No cyanosis Skin: No rashes, No significant lesion Neuro: Normal speech, Normal tone, Sensation intact Psych/Mental Status: Mental status NL, Mood NL Vitals Vitals Vital Signs Date Time Temp Pulse Resp B/P (MAP) Pulse Ox O2 Delivery O2 Flow Rate FiO2 10/21/20 16:24 78 32 162/99 (120) 96 Nasal Cannula 3.0 10/21/20 15:29 98.3 98.3 Labs Labs Laboratory Tests Test 10/21/20 15:40 10/21/20 16:34 White Blood Count 4.6 x10^3/uL (4.0-11.0) Red Blood Count 4.24 x10^6/uL (3.50-5.40) Hemoglobin 12.8 g/dL (12.0-15.5) Hematocrit 38.8 % (36.0-47.0) Mean Corpuscular Volume 91 fL (79-100) Mean Corpuscular Hemoglobin 30 pg (25-35) Mean Corpuscular Hemoglobin Concent 33 g/dL (31-37) Red Cell Distribution Width 14.0 % (11.5-14.5) Platelet Count 235 x10^3/uL (140-400) Neutrophils (%) (Auto) 38 % (31-73) Lymphocytes (%) (Auto) 40 % (24-48) Monocytes (%) (Auto) 15 % (0-9) Eosinophils (%) (Auto) 6 % (0-3) Basophils (%) (Auto) 1 % (0-3) Neutrophils # (Auto) 1.7 x10^3/uL (1.8-7.7) Lymphocytes # (Auto) 1.8 x10^3/uL (1.0-4.8) Monocytes # (Auto) 0.7 x10^3/uL (0.0-1.1) Eosinophils # (Auto) 0.3 x10^3/uL (0.0-0.7) Basophils # (Auto) 0.0 x10^3/uL (0.0-0.2) Sodium Level 144 mmol/L (136-145) Potassium Level 4.6 mmol/L (3.5-5.1) Chloride Level 104 mmol/L (98-107) Carbon Dioxide Level 37 mmol/L (21-32) Anion Gap 3 (6-14) Blood Urea Nitrogen 11 mg/dL (7-20) Creatinine 0.6 mg/dL (0.6-1.0) Estimated GFR (Cockcroft-Gault) 122.6 BUN/Creatinine Ratio 18 (6-20) Glucose Level 89 mg/dL (70-99) Calcium Level 8.8 mg/dL (8.5-10.1) Magnesium Level 2.0 mg/dL (1.8-2.4) Total Bilirubin 0.5 mg/dL (0.2-1.0) Aspartate Amino Transf (AST/SGOT) 21 U/L (15-37) Alanine Aminotransferase (ALT/SGPT) 17 U/L (14-59) Alkaline Phosphatase 62 U/L (46-116) Creatine Kinase 319 U/L (26-192) Creatine Kinase MB (Mass) 3.3 ng/mL (0.0-3.6) Creatine Kinase MB Relative Index 1.0 % (0-4) Troponin I Quantitative < 0.017 ng/mL (0.000-0.055) NA-Hwg-F-Type Natriuretic Peptide 190 pg/mL (0-124) Total Protein 6.6 g/dL (6.4-8.2) Albumin 4.0 g/dL (3.4-5.0) Albumin/Globulin Ratio 1.5 (1.0-1.7) Lipase 125 U/L (73-393) Urine Collection Type Void Urine Color Yellow Urine Clarity Cloudy Urine pH 7.0 (<5.0-8.0) Urine Specific [place] 1.020 (1.000-1.030) Urine Protein Negative mg/dL (NEG-TRACE) Urine Glucose (UA) Negative mg/dL (NEG) Urine Ketones (Stick) Negative mg/dL (NEG) Urine Blood Negative (NEG) Urine Nitrite Negative (NEG) Urine Bilirubin Negative (NEG) Urine Urobilinogen Dipstick 1.0 mg/dL (0.2 mg/dL) Urine Leukocyte Esterase Small (NEG) Urine RBC Rare /HPF (0-2) Urine WBC Rare /HPF (0-4) Urine Squamous Epithelial Cells Many /LPF Urine Bacteria Moderate /HPF (0-FEW) Urine Mucus Mod /LPF Laboratory Tests Test 10/21/20 15:40 10/21/20 16:34 White Blood Count 4.6 x10^3/uL (4.0-11.0) Red Blood Count 4.24 x10^6/uL (3.50-5.40) Hemoglobin 12.8 g/dL (12.0-15.5) Hematocrit 38.8 % (36.0-47.0) Mean Corpuscular Volume 91 fL (79-100) Mean Corpuscular Hemoglobin 30 pg (25-35) Mean Corpuscular Hemoglobin Concent 33 g/dL (31-37) Red Cell Distribution Width 14.0 % (11.5-14.5) Platelet Count 235 x10^3/uL (140-400) Neutrophils (%) (Auto) 38 % (31-73) Lymphocytes (%) (Auto) 40 % (24-48) Monocytes (%) (Auto) 15 % (0-9) Eosinophils (%) (Auto) 6 % (0-3) Basophils (%) (Auto) 1 % (0-3) Neutrophils # (Auto) 1.7 x10^3/uL (1.8-7.7) Lymphocytes # (Auto) 1.8 x10^3/uL (1.0-4.8) Monocytes # (Auto) 0.7 x10^3/uL (0.0-1.1) Eosinophils # (Auto) 0.3 x10^3/uL (0.0-0.7) Basophils # (Auto) 0.0 x10^3/uL (0.0-0.2) Sodium Level 144 mmol/L (136-145) Potassium Level 4.6 mmol/L (3.5-5.1) Chloride Level 104 mmol/L (98-107) Carbon Dioxide Level 37 mmol/L (21-32) Anion Gap 3 (6-14) Blood Urea Nitrogen 11 mg/dL (7-20) Creatinine 0.6 mg/dL (0.6-1.0) Estimated GFR (Cockcroft-Gault) 122.6 BUN/Creatinine Ratio 18 (6-20) Glucose Level 89 mg/dL (70-99) Calcium Level 8.8 mg/dL (8.5-10.1) Magnesium Level 2.0 mg/dL (1.8-2.4) Total Bilirubin 0.5 mg/dL (0.2-1.0) Aspartate Amino Transf (AST/SGOT) 21 U/L (15-37) Alanine Aminotransferase (ALT/SGPT) 17 U/L (14-59) Alkaline Phosphatase 62 U/L (46-116) Creatine Kinase 319 U/L (26-192) Creatine Kinase MB (Mass) 3.3 ng/mL (0.0-3.6) Creatine Kinase MB Relative Index 1.0 % (0-4) Troponin I Quantitative < 0.017 ng/mL (0.000-0.055) UZ-Qeb-W-Type Natriuretic Peptide 190 pg/mL (0-124) Total Protein 6.6 g/dL (6.4-8.2) Albumin 4.0 g/dL (3.4-5.0) Albumin/Globulin Ratio 1.5 (1.0-1.7) Lipase 125 U/L (73-393) Urine Collection Type Void Urine Color Yellow Urine Clarity Cloudy Urine pH 7.0 (<5.0-8.0) Urine Specific [place] 1.020 (1.000-1.030) Urine Protein Negative mg/dL (NEG-TRACE) Urine Glucose (UA) Negative mg/dL (NEG) Urine Ketones (Stick) Negative mg/dL (NEG) Urine Blood Negative (NEG) Urine Nitrite Negative (NEG) Urine Bilirubin Negative (NEG) Urine Urobilinogen Dipstick 1.0 mg/dL (0.2 mg/dL) Urine Leukocyte Esterase Small (NEG) Urine RBC Rare /HPF (0-2) Urine WBC Rare /HPF (0-4) Urine Squamous Epithelial Cells Many /LPF Urine Bacteria Moderate /HPF (0-FEW) Urine Mucus Mod /LPF Images Images CHEST AP ONLY XR CHEST 1V 10/21/2020 3:55 PM INDICATION: Chest pain COMPARISON: 07/04/2020 TECHNIQUE: Portable frontal view of the chest is provided. FINDINGS: The cardiomediastinal silhouette is similar in appearance. Lungs are clear. There are no significant pleural effusions. There is no pulmonary vascular congestion. No pneumothorax. No suspicious osseous abnormality. IMPRESSION: There is no acute cardiopulmonary process. VTE Prophylaxis Ordered VTE Prophylaxis Devices: No VTE Pharmacological Prophylaxi: Yes Assessment/Plan Assessment/Plan Acute respiratory failure with hypoxia Acute COPD exacerbation CAD Plan: COVID-19 pending Will continue treatment with azithromycin given penicillin allergy and Solu- Medrol 80 mg IV every 6 hours with taper. Will place consultation to pulmonology CTA pending Will provide inhaled steroid She will need 6-minute walk prior to discharge Resume home medications FEN - Cardiac diet PPX - Lovenox FULL CODE Dispo - inpatient for above; patient names her as her surrogate decision-maker Advance Care Planning: Total time spent [id number] with patient greater than 16 minutes in discussion with goals of care, comfort care, end-of-life care, pain management, code status Justifications for Admission Other Justification TIFFANY PARIKH MD October 21, 2020 17:46
[2020-10-21] MEDS ORDERED: ZOLPIDEM 5 MG TABLET. PO PRN (18:00)
[2020-10-21] MEDS ORDERED: MAG HYDROX/ALUMINUM HYD/SIMETH 30 ML ORAL.SUSP PO PRN (18:00)
[2020-10-21] MEDS ORDERED: HYDROcodone/APAP 5/325MG 1 TAB TABLET PO PRN (18:00)
[2020-10-21] MEDS ORDERED: AZITHROMYCIN 250 MG TABLET. PO ONE (18:00)
[2020-10-21] MEDS ORDERED: CALCIUM CARBONATE 500 MG TAB.CHEW PO PRN (18:00)
[2020-10-21] MEDS ORDERED: BISACODYL 10 MG SUPP.RECT. PR PRN (18:00)
[2020-10-21] MEDS ORDERED: ONDANSETRON PF 4 MG/2 ML VIAL. IVP PRN (18:00)
[2020-10-21] MEDS ORDERED: MAGNESIUM HYDROXIDE 2,400 MG/30 ML ORAL.SUSP. PO PRN (18:00)
--- NOTE | 2020-10-21 18:07 | ED.ADGEN ---
Past Medical History Past Medical History: CAD, COPD, High Cholesterol, Hypertension, Other Additional Past Medical Histor: CHRONIC BRONCHITIS Past Surgical History: Angioplasty, Hysterectomy, Tonsillectomy, Other Additional Past Surgical Histo: HEART CATH,EXP SURG X4, laproscopy Smoking Status: Former Smoker Additional Information: quit smoking 8 years ago Alcohol Use: None Drug Use: None General Adult EDM: Chief Complaint: SHORTNESS OF BREATH HPI: HPI: Patient is a 60 year old AA female who presents emergency department with complaints of shortness of breath for the last month. She denies any chest pain, palpitations, nausea, vomiting, diarrhea, abdominal pain, or swelling of her lower extremities. Patient reports that she has received both immunizations for COVID-19. She denies any Covid exposure. Patient states that over the last 2 days she has noticed that the shortness of breath is getting more severe and t hat it definitely increases with any activity or ambulation. Patient reports that she has also had a cough with yellow sputum she denies any hemoptysis. Patient denies any fever, body aches, or fatigue. She states that she wears oxygen at 2 L via nasal, cannula at home due to her COPD. She currently denies any pain. Review of Systems: Review of Systems: Complete ROS is negative unless otherwise noted in HPI. Allergies: Allergies: Allergies Coded Allergies Type Severity Reaction Last Updated Verified iron Allergy Severe Swelling 10/21/20 Yes Penicillins Allergy Intermediate rash 10/21/20 Yes morphine Allergy Intermediate Rash-PERCOCET OK 10/21/20 Yes benzonatate Adverse Reaction Intermediate Itching 10/21/20 Yes Physical Exam: PE: See Above Constitutional: Well developed, well nourished, no acute distress, non-toxic appearance. [] HENT: Normocephalic, atraumatic, bilateral external ears normal, nose normal. [] Eyes: PERRLA, EOMI, conjunctiva normal, no discharge. [] Neck: Normal range of motion, no stridor. [] Cardiovascular:Heart rate regular rhythm Lungs & Thorax: Respirations even and unlabored, no retractions, no respiratory distress, lung sounds diminished in bases bilaterally, scattered expiratory wheezes Abdomen: soft, no tenderness Skin: Warm, dry, no erythema, no rash. [] Extremities: No cyanosis, ROM intact, no edema. [] Neurologic: Alert and oriented X 3, normal motor, normal sensory, no focal deficits noted. [] Psychologic: Affect normal, judgement normal, mood normal. [] Current Patient Data: Labs: Laboratory Tests Test 10/21/20 15:40 10/21/20 16:34 White Blood Count 4.6 x10^3/uL (4.0-11.0) Red Blood Count 4.24 x10^6/uL (3.50-5.40) Hemoglobin 12.8 g/dL (12.0-15.5) Hematocrit 38.8 % (36.0-47.0) Mean Corpuscular Volume 91 fL (79-100) Mean Corpuscular Hemoglobin 30 pg (25-35) Mean Corpuscular Hemoglobin Concent 33 g/dL (31-37) Red Cell Distribution Width 14.0 % (11.5-14.5) Platelet Count 235 x10^3/uL (140-400) Neutrophils (%) (Auto) 38 % (31-73) Lymphocytes (%) (Auto) 40 % (24-48) Monocytes (%) (Auto) 15 % (0-9) H Eosinophils (%) (Auto) 6 % (0-3) H Basophils (%) (Auto) 1 % (0-3) Neutrophils # (Auto) 1.7 x10^3/uL (1.8-7.7) L Lymphocytes # (Auto) 1.8 x10^3/uL (1.0-4.8) Monocytes # (Auto) 0.7 x10^3/uL (0.0-1.1) Eosinophils # (Auto) 0.3 x10^3/uL (0.0-0.7) Basophils # (Auto) 0.0 x10^3/uL (0.0-0.2) Sodium Level 144 mmol/L (136-145) Potassium Level 4.6 mmol/L (3.5-5.1) Chloride Level 104 mmol/L (98-107) Carbon Dioxide Level 37 mmol/L (21-32) H Anion Gap 3 (6-14) L Blood Urea Nitrogen 11 mg/dL (7-20) Creatinine 0.6 mg/dL (0.6-1.0) Estimated GFR (Cockcroft-Gault) 122.6 BUN/Creatinine Ratio 18 (6-20) Glucose Level 89 mg/dL (70-99) Calcium Level 8.8 mg/dL (8.5-10.1) Magnesium Level 2.0 mg/dL (1.8-2.4) Total Bilirubin 0.5 mg/dL (0.2-1.0) Aspartate Amino Transferase (AST) 21 U/L (15-37) Alanine Aminotransferase (ALT) 17 U/L (14-59) Alkaline Phosphatase 62 U/L (46-116) Creatine Kinase 319 U/L (26-192) H Creatine Kinase MB (Mass) 3.3 ng/mL (0.0-3.6) Creatine Kinase MB Relative Index 1.0 % (0-4) Troponin I Quantitative < 0.017 ng/mL (0.000-0.055) QE-Ira-O-Type Natriuretic Peptide 190 pg/mL (0-124) H Total Protein 6.6 g/dL (6.4-8.2) Albumin 4.0 g/dL (3.4-5.0) Albumin/Globulin Ratio 1.5 (1.0-1.7) Lipase 125 U/L (73-393) Urine Collection Type Void Urine Color Yellow Urine Clarity Cloudy Urine pH 7.0 (<5.0-8.0) Urine Specific [place] 1.020 (1.000-1.030) Urine Protein Negative mg/dL (NEG-TRACE) Urine Glucose (UA) Negative mg/dL (NEG) Urine Ketones (Stick) Negative mg/dL (NEG) Urine Blood Negative (NEG) Urine Nitrite Negative (NEG) Urine Bilirubin Negative (NEG) Urine Urobilinogen Dipstick 1.0 mg/dL (0.2 mg/dL) Urine Leukocyte Esterase Small (NEG) Urine RBC Rare /HPF (0-2) Urine WBC Rare /HPF (0-4) Urine Squamous Epithelial Cells Many /LPF Urine Bacteria Moderate /HPF (0-FEW) Urine Mucus Mod /LPF Laboratory Tests 10/21/20 15:40 Laboratory Tests 10/21/20 15:40 Microbiology 10/21/20 Urine Culture - Final, Complete 10/21/20 Antimicrobic Susceptibility - Final, Complete Vital Signs: Vital Signs Date Time Temp Pulse Resp B/P (MAP) Pulse Ox O2 Delivery O2 Flow Rate FiO2 10/21/20 16:24 78 32 162/99 (120) 96 Nasal Cannula 3.0 10/21/20 15:29 98.3 98.3 EKG: EK-sinus rhythm, rate 77, left anterior fascicular block, no STEMI, read by Dr. Soliman [] Heart Score: C/O Chest Pain: No Risk Scores: Score 0 - 3: 2.5% MACE over next 6 weeks - Discharge Home Score 4 - 6: 20.3% MACE over next 6 weeks - Admit for Clinical Observation Score 7 - 10: 72.7% MACE over next 6 weeks - Early Invasive Strategies Radiology/Procedures: Radiology/Procedures: PROCEDURE: CHEST AP ONLY XR CHEST 1V 10/21/2020 3:55 PM INDICATION: Chest pain COMPARISON: 07/04/2020 TECHNIQUE: Portable frontal view of the chest is provided. FINDINGS: The cardiomediastinal silhouette is similar in appearance. Lungs are clear. There are no significant pleural effusions. There is no pulmonary vascular congestion. No pneumothorax. No suspicious osseous abnormality. IMPRESSION: There is no acute cardiopulmonary process. Electronically signed by: Adrianne Goodman MD (10/21/2020 4:14 PM) [id number] PROCEDURE: CT ANGIOGRAPHY CHEST EXAM: CT angiography of the chest with intravenous contrast. HISTORY: Shortness of breath. Hypoxia. TECHNIQUE: Computed tomographic images of the chest were obtained following the administration of intravenous contrast according to angiography protocol. Multiplanar reformatting was performed and three dimensional maximum intensity projection images were obtained. *One or more of the following individualized dose reduction techniques were utilized for this examination: 1. Automated exposure control. 2. Adjustment of the mA and/or kV according to patient size. 3. Use of iterative reconstruction technique. COMPARISON: 08/23/2018. FINDINGS: Evaluation of the distal pulmonary arteries is limited due to respiratory motion. No central pulmonary embolism is seen. There are enlarged central ulnar arteries likely due to pulmonary artery hypertension. There is no aortic aneurysm or dissection. There is aortic and aortic great vessel calcified atherosclerotic plaque. The left vertebral artery originates directly from the aortic arch, a normal aortic arch branching variant. There are prominent right hilar lymph nodes. The heart is upper normal in size. There is no pneumothorax or pleural effusion. There is mild emphysema. There is bilateral basilar and posterior dependent atelectasis. There is mild central bronchial wall thickening. There is a 2.0 cm nonspecific groundglass opacity within the right upper lobe, likely postinfectious or postinflammatory. There is no consolidated infiltrate. There is lingular atelectasis or scarring. There is reflux of contrast into the inferior vena cava. This can be seen with right heart failure. There is no acute finding involving the upper abdomen. There is colonic diverticulosis. There are degenerative changes throughout the spine. There is no suspicious osseous lesion. IMPRESSION: 1. No convincing pulmonary embolism. Evaluation of the distal pulmonary arteries is limited due to respiratory motion. 2. Suspected pulmonary artery hypertension. 3. Bilateral lower lobe and posterior dependent atelectasis. No consolidated infiltrate is seen. 4. Mild central bronchial wall thickening. This can be seen as a sequela of bronchitis. 5. Prominent right hilar lymph nodes, likely physiologic or reactive in etiology. [] Course & Med Decision Making: Course & Med Decision Making Pertinent Labs and Imaging studies reviewed. (See chart for details) [id number] with Dr. Ortez who is the admitting physician, and care was assumed following discussion of patient. Will admit for shortness of breath and hypoxia. Will order CT angio of the patient's chest at this time. Patient's vital signs stable. Patient remains afebrile, appears nontoxic, respirations even and unlabored. Patient will be admitted to the CVC floor. Patient's case and plan of care also discussed with Dr. Mckee[] I oversaw on the above date of service of this patient and discussed the care with the PARTS SALES MANAGER. I agree with the findings, plan of care, and disposition as documented. Electronically signed, Gladis Mckee, DO Critical Care Time This patient required critical care. Due to the fact that the patient required a significant amount of one on one physician - patient contact time, ordering and review of studies, arranging urgent treatment with development of a management plan, evaluation of patients response to treatment with frequent reassessments, and discussions with other providers this patient required 40 minutes of critical care time. Critical care time was indicated due to the inherent instability and/or potential for instability in this patient. The critical care time that is allocated to this patient is above and beyond any time spent on any other billable procedures performed on this patient. Dragon Disclaimer: Monie Disclaimer: This electronic medical record was generated, in whole or in part, using a voice recognition dictation system. Departure Departure Impression: Primary Impression: Hypoxia Additional Impression: Shortness of breath Disposition: ADMITTED INPATIENT Admitting Physician: MAURISIO Sullivan) Condition: STABLE Referrals: GUZMAN GALLEGOS MD (PCP) Scripts Lisinopril (LISINOPRIL) 5 Mg Tablet 5 MG PO BID for BLOOD PRESSURE for 30 Days, #60 TAB Prov: CORWIN FLOREZ MD 10/24/20 Prednisone (PREDNISONE) 20 Mg Tablet 1.5 TAB PO DAILY for copd for 7 Days, #11 TAB Prov: CORWIN FLOREZ MD 10/23/20 Lactobacillus Rhamnosus Gg (CULTURELLE) 1 Each Cap.sprink 1 CAP PO BID for supplement for 30 Days, #60 CAP Prov: CORWIN FLOREZ MD 10/23/20 Mag Hydrox/Al Hydrox/Simeth (MAG-AL PLUS XS SUSPENSION) 30 Ml Oral.susp 30 ML PO PRN Q3HRS PRN for HEARTBURN / GAS for 30 Days, #90 MISC Prov: CORWIN FLOREZ MD 10/23/20 Fluticasone/Vilanterol (Breo Ellipta 100-25 Mcg INH) 1 Each Blst.w.dev 1 PUFF INH DAILY for copd for 30 Days, #1 EACH Prov: CORWIN FLOREZ MD 10/23/20 Acetaminophen (ACETAMINOPHEN) 325 Mg Tablet 650 MG PO PRN Q6HRS PRN for Headaches, Temp > 101.5F for 30 Days, #100 TAB Prov: CORWIN FLOREZ MD 10/23/20 Amlodipine Besylate (AMLODIPINE BESYLATE) 10 Mg Tablet 10 MG PO DAILY for blood pressure for 30 Days, #30 TAB Prov: CORWIN FLOREZ MD 10/23/20 Azithromycin (AZITHROMYCIN TABLET) 250 Mg Tablet 250 MG PO DAILY for bronchitis for 7 Days, #7 TAB Prov: CORWIN FLOREZ MD 10/23/20 Problem Qualifiers PAVITHRA HERNÁNDEZ APRN October 21, 2020 18:07 GLADIS MCKEE DO October 25, 2020 04:34
[2020-10-21] MEDS ORDERED: hydrALAZINE 20 MG/ML VIAL. IVP PRN (18:15)
--- NOTE | 2020-10-21 18:25 | RAD ---
EXAM: CT angiography of the chest with intravenous contrast. HISTORY: Shortness of breath. Hypoxia. TECHNIQUE: Computed tomographic images of the chest were obtained following the administration of int ravenous contrast according to angiography protocol. Multiplanar reformatting was performed and three dimensional maximum intensity projection images were obtained. *One or more of the following individualized dose reduction techniques were utilized for this examina tion: 1. Automated exposure control. 2. Adjustment of the mA and/or kV according to patient size. 3. Use of iterative reconstruction technique. COMPARISON: 08/23/2018. FINDINGS: Evaluation of the distal pulmonary arteries is limited due to respiratory motion. No centra l pulmonary embolism is seen. There are enlarged central ulnar arteries likely due to pulmonary arter y hypertension. There is no aortic aneurysm or dissection. There is aortic and aortic great vessel ca lcified atherosclerotic plaque. The left vertebral artery originates directly from the aortic arch, a normal aortic arch branching variant. There are prominent right hilar lymph nodes. The heart is upper normal in size. There is no pneumotho rax or pleural effusion. There is mild emphysema. There is bilateral basilar and posterior dependent atelectasis. There is mild central bronchial wall thickening. There is a 2.0 cm nonspecific groundgla ss opacity within the right upper lobe, likely postinfectious or postinflammatory. There is no consol idated infiltrate. There is lingular atelectasis or scarring. There is reflux of contrast into the inferior vena cava. This can be seen with right heart failure. T here is no acute finding involving the upper abdomen. There is colonic diverticulosis. There are dege nerative changes throughout the spine. There is no suspicious osseous lesion. IMPRESSION: 1. No convincing pulmonary embolism. Evaluation of the distal pulmonary arteries is limited due to re spiratory motion. 2. Suspected pulmonary artery hypertension. 3. Bilateral lower lobe and posterior dependent atelectasis. No consolidated infiltrate is seen. 4. Mild central bronchial wall thickening. This can be seen as a sequela of bronchitis. 5. Prominent right hilar lymph nodes, likely physiologic or reactive in etiology. Electronically signed by: Tiara Finch MD (10/21/2020 6:23 PM) [facility]
[2020-10-21] MEDS: methylPREDNISolone SOD SUCC PF 40 MG/ML VIAL. IV SCH (18:37)
[2020-10-21] MEDS: FLUTICASONE/VILANTEROL 100/25 INHALER. INH SCH (21:50)
[2020-10-21] MEDS: ENOXAPARIN 40 MG/0.4 ML SYRINGE. SQ SCH (21:51)
[2020-10-21] MEDS: ALPRAZolam 0.25 MG TABLET PO SCH (21:51)
[2020-10-21] MEDS: SERTRALINE 50 MG TABLET. PO SCH (21:51)
[2020-10-21 22:39] VITALS: BP 176/110
[2020-10-22] MEDS: methylPREDNISolone SOD SUCC PF 40 MG/ML VIAL. IV SCH ×5 (01:02→23:47)
[2020-10-22 03:00] VITALS: BP 163/98
[2020-10-22] MEDS ORDERED: ESTR0.5T PO (03:03)
[2020-10-22] MEDS ORDERED: OXYB10TA26 PO (03:03)
[2020-10-22] MEDS ORDERED: DICL75TA PO (03:03)
[2020-10-22] MEDS ORDERED: ROSU5TAB12 PO (03:03)
[2020-10-22 07:00] VITALS: BP 177/105
[2020-10-22] MEDS: ASPIRIN ENTERIC COATED 81 MG TABLET.DR. PO SCH (08:12)
[2020-10-22] MEDS: ALPRAZolam 0.25 MG TABLET PO SCH ×2 (08:12→20:18)
[2020-10-22] MEDS: CLOPIDOGREL BISULFATE 75 MG TABLET PO SCH (08:12)
[2020-10-22] MEDS: FLUTICASONE/VILANTEROL 100/25 INHALER. INH SCH (08:13)
[2020-10-22] MEDS: AZITHROMYCIN 250 MG TABLET. PO SCH (08:13)
[2020-10-22] MEDS: BUDESONIDE 0.5 MG/2 ML NEBU. NEB SCH ×3 (08:30→20:22)
[2020-10-22] MEDS ORDERED: IPRATRPIUM/ALBUTEROL 0.5/2.5MG 3 ML NEBU. NEB SCH (08:30)
[2020-10-22] MEDS: IPRATROPIUM/ALBUTEROL 20/100mcg/INH INHALER. INH SCH ×2 (09:30→20:05)
--- NOTE | 2020-10-22 10:07 | NUR ---
SW following. Discussed with RN, pt from home, 3L (uses 2L at home), cardiac diet. Pt PUI for COVID- result still pending. Pulmonology following. RN advised no SW needs at this time. SW will continue to follow.
--- NOTE | 2020-10-22 10:40 | CONS ---
DATE OF CONSULTATION: 10/22/2020 PULMONARY CONSULTATION ATTENDING PHYSICIAN: Dr. Ortez. REASON FOR CONSULTATION: COPD exacerbation. HISTORY OF PRESENT ILLNESS: The patient is a 60-year-old female who is known to us from prior admissions. She sees my partner, Dr. Stock in the office. She has severe COPD with chronic hypoxic respiratory failure on home oxygen at 2 liters. She was brought into the hospital with increased shortness of breath and wheezing. She has a cough. No fever, no chills, no chest pain. No nausea, vomiting. No diarrhea. No dysuria. She says she has been treated with doxycycline twice in the last few months. Chest CT was performed. There was no evidence of central pulmonary embolism. She has evidence of pulmonary hypertension. She has some basal atelectasis and some pleural thickening in the upper lobes. Mildly prominent right hilar lymph node, likely reactive. PAST MEDICAL HISTORY: Significant for severe COPD with chronic hypoxic respiratory failure, history of CHF, hypertension, hyperlipidemia, pulmonary hypertension, osteoarthritis. PAST SURGICAL HISTORY: Tonsillectomy, hysterectomy. FAMILY HISTORY: Asthma and hypertension. SOCIAL HISTORY: Long history of tobacco use, but no longer smokes cigarettes. ALLERGIES: PENICILLIN, IRON, MORPHINE, AND BENZONATATE. MEDICATIONS: Reviewed as listed in the MRAD including azithromycin, Lovenox for DVT prophylaxis. IV Solu-Medrol. REVIEW OF SYSTEMS: A 12-point system obtained. Pertinent positives discussed in my present illness, otherwise noncontributory. All systems that were negative were reviewed as well. PHYSICAL EXAMINATION: VITAL SIGNS: Reviewed. Afebrile. Pulse ox 93% on 3 liters. NECK: Supple. LUNGS: With diminished breath sounds with only faint wheezing. CARDIOVASCULAR: With a regular rate. ABDOMEN: Soft. EXTREMITIES: With trace pitting edema. LABORATORY DATA: Reviewed. White cell count 4.6, hemoglobin 12.8, platelets are 235. BUN 11, creatinine 0.6. IMPRESSION: 1. Acute exacerbation of chronic obstructive pulmonary disease, triggered by acute bronchitis. 2. No definite pneumonia seen on the CT chest. 3. Abnormal CT chest with some mild basal atelectasis and some pleural thickening. No definite consolidation seen and no definite pulmonary embolism seen. 4. The patient with chronic hypoxic respiratory failure secondary to severe chronic obstructive pulmonary disease. Oxygen requirement has not changed. RECOMMENDATIONS: 1. Continue present oxygen. 2. Continue home Breo Ellipta and add p.r.n. ProAir. Once COVID ruled out, then she could be continued on her nebulizer with DuoNeb as well as Pulmicort. 3. Lovenox for DVT prophylaxis. 4. Continue antibiotic, azithromycin. 5. IV Solu-Medrol with gradual taper. Her wheezing has improved. 6. Possible discharge in the next 24-[address]: Terence TID: [id number]
[2020-10-22 11:00] VITALS: BP 166/95
--- NOTE | 2020-10-22 11:23 | PDOC ---
[employer] PROGRESS NOTE Date of Service DOS: DATE: 10/22/20 TIME: 11:20 Chief Complaint Chief Complaint Shortness of Air History of Present Illness History of Present Illness 10/22/2020 Patient was seen and examined today. She shared no new concerns or questions. Discussed care with RN and case management. Chart and specialist notes reviewed. Patient is a 60-year-old female past medical history COPD on 2 L at baseline who presents to the ED with complaints of worsening shortness of breath over the past 2 weeks. Her symptoms are worse with ambulation. She states that her symptoms have been ongoing for the past 2 months, and seen by her PCP and t reated with doxycycline and prednisone with brief improvement. She reports associated cough productive of yellow sputum. She lives at home with her and denies any sick contacts, fever, nausea, vomiting, or diarrhea. Discussed with ER provider, recommend obtaining CTA. Will admit patient for further medical management. Vitals/I&O Vitals/I&O: Vital Signs Date Time Temp Pulse Resp B/P (MAP) Pulse Ox O2 Delivery O2 Flow Rate FiO2 10/22/20 08:00 Nasal Cannula 3.0 10/22/20 07:00 98.2 79 18 177/105 (129) 93 98.2 Physical Exam General: Alert, Oriented X3, Cooperative, No acute distress Heart: Regular rate, No murmurs Lungs: Wheezing, Crackles Abdomen: Normal bowel sounds, No tenderness Extremities: No clubbing, No cyanosis Skin: No rashes, No significant lesion Labs Labs: Laboratory Tests Test 10/21/20 15:40 10/21/20 16:34 10/21/20 22:10 White Blood Count 4.6 x10^3/uL (4.0-11.0) Red Blood Count 4.24 x10^6/uL (3.50-5.40) Hemoglobin 12.8 g/dL (12.0-15.5) Hematocrit 38.8 % (36.0-47.0) Mean Corpuscular Volume 91 fL (79-100) Mean Corpuscular Hemoglobin 30 pg (25-35) Mean Corpuscular Hemoglobin Concent 33 g/dL (31-37) Red Cell Distribution Width 14.0 % (11.5-14.5) Platelet Count 235 x10^3/uL (140-400) Neutrophils (%) (Auto) 38 % (31-73) Lymphocytes (%) (Auto) 40 % (24-48) Monocytes (%) (Auto) 15 % (0-9) Eosinophils (%) (Auto) 6 % (0-3) Basophils (%) (Auto) 1 % (0-3) Neutrophils # (Auto) 1.7 x10^3/uL (1.8-7.7) Lymphocytes # (Auto) 1.8 x10^3/uL (1.0-4.8) Monocytes # (Auto) 0.7 x10^3/uL (0.0-1.1) Eosinophils # (Auto) 0.3 x10^3/uL (0.0-0.7) Basophils # (Auto) 0.0 x10^3/uL (0.0-0.2) Sodium Level 144 mmol/L (136-145) Potassium Level 4.6 mmol/L (3.5-5.1) Chloride Level 104 mmol/L (98-107) Carbon Dioxide Level 37 mmol/L (21-32) Anion Gap 3 (6-14) Blood Urea Nitrogen 11 mg/dL (7-20) Creatinine 0.6 mg/dL (0.6-1.0) Estimated GFR (Cockcroft-Gault) 122.6 BUN/Creatinine Ratio 18 (6-20) Glucose Level 89 mg/dL (70-99) Calcium Level 8.8 mg/dL (8.5-10.1) Magnesium Level 2.0 mg/dL (1.8-2.4) Total Bilirubin 0.5 mg/dL (0.2-1.0) Aspartate Amino Transf (AST/SGOT) 21 U/L (15-37) Alanine Aminotransferase (ALT/SGPT) 17 U/L (14-59) Alkaline Phosphatase 62 U/L (46-116) Creatine Kinase 319 U/L (26-192) Creatine Kinase MB (Mass) 3.3 ng/mL (0.0-3.6) Creatine Kinase MB Relative Index 1.0 % (0-4) Troponin I Quantitative < 0.017 ng/mL (0.000-0.055) AI-Yje-R-Type Natriuretic Peptide 190 pg/mL (0-124) Total Protein 6.6 g/dL (6.4-8.2) Albumin 4.0 g/dL (3.4-5.0) Albumin/Globulin Ratio 1.5 (1.0-1.7) Lipase 125 U/L (73-393) Urine Collection Type Void Urine Color Yellow Urine Clarity Cloudy Urine pH 7.0 (<5.0-8.0) Urine Specific [place] 1.020 (1.000-1.030) Urine Protein Negative mg/dL (NEG-TRACE) Urine Glucose (UA) Negative mg/dL (NEG) Urine Ketones (Stick) Negative mg/dL (NEG) Urine Blood Negative (NEG) Urine Nitrite Negative (NEG) Urine Bilirubin Negative (NEG) Urine Urobilinogen Dipstick 1.0 mg/dL (0.2 mg/dL) Urine Leukocyte Esterase Small (NEG) Urine RBC Rare /HPF (0-2) Urine WBC Rare /HPF (0-4) Urine Squamous Epithelial Cells Many /LPF Urine Bacteria Moderate /HPF (0-FEW) Urine Mucus Mod /LPF SARS-CoV-2 RNA (JAMAR) Negative (Negative) Review of Systems Review of Systems: no headache no loss of vision Assessment and Plan Assessmemt and Plan Acute respiratory failure with hypoxia Acute COPD exacerbation CAD Mild pulmonary hypertension- per CTA Possible bronchitis- per CTA COVID-19 negative Plan: Monitor O2 sats Respiratory therapy- per pulm Continue azithromycin Appreciate pulmonology input Add Norvasc 10mg PO daily 6-minute walk prior to discharge [facility] Cardiac diet DVT prophylaxis- Lovenox FULL CODE Home meds Cardiac monitoring Pt/OT consult 6-minute walk prior to discharge D/C dispostion pending- patient names her as her surrogate decision- maker Comment Review of Relevant I have reviewed the following items paulette (where applicable) has been applied. Medications: Current Medications Medications (Trade) Dose Ordered Sig/Umang Route PRN Reason Start Time Stop Time Status Last Admin Dose Admin Alprazolam (Xanax) 0.25 mg BID PO 10/21/20 21:00 10/22/20 08:12 Aspirin (Ecotrin) 81 mg DAILY PO 10/22/20 09:00 10/22/20 08:12 Clopidogrel Bisulfate (Plavix) 75 mg DAILY PO 10/22/20 09:00 10/22/20 08:12 Sertraline HCl (Zoloft) 50 mg HS PO 10/21/20 21:00 10/21/20 21:51 Fluticasone/ Vilanterol (Breo Ellipta 100-25 Mcg) 1 puff DAILY INH 10/21/20 21:00 10/22/20 08:13 Methylprednisolone Sodium Succinate (SOLU-Medrol 40MG VIAL) 80 mg Q6HRS IV 10/21/20 18:00 10/22/20 06:09 Azithromycin (Zithromax) 500 mg 1X ONCE PO 10/21/20 18:00 10/21/20 18:01 DC 10/21/20 18:35 Azithromycin (Zithromax) 250 mg DAILY PO 10/22/20 09:00 10/26/20 08:59 10/22/20 08:13 Enoxaparin Sodium (Lovenox 40mg Syringe) 40 mg Q24H SQ 10/21/20 21:00 10/21/20 21:51 Albuterol/ Ipratropium (Combivent Respimat 20-100 Mcg) 2 puff RTBID INH 10/22/20 09:30 10/22/20 09:30 Justifications for Admission Other Justification Acute respiratory failure with hypoxia, acute COPD exacerbation LAVELLE AMBROSIO III DO October 22, 2020 11:23
[2020-10-22 15:00] VITALS: BP 161/94
[2020-10-22] MEDS: FUROSEMIDE 20 MG TABLET PO SCH (16:23)
[2020-10-22] MEDS: ACETAMINOPHEN 325 MG TABLET. PO PRN (17:54)
[2020-10-22 19:00] VITALS: BP 169/94
[2020-10-22] MEDS: LACTOBACILLUS RHAMNOSUS GG 1 CAPSULE. PO SCH (20:18)
[2020-10-22] MEDS: SERTRALINE 50 MG TABLET. PO SCH (20:18)
[2020-10-22] MEDS: guaiFENesin/CODEINE 100mg/10mg 5 ML LIQUID PO PRN (20:18)
[2020-10-22] MEDS: ENOXAPARIN 40 MG/0.4 ML SYRINGE. SQ SCH (20:19)
[2020-10-22 23:21] VITALS: BP 153/85
[2020-10-23 02:57] VITALS: BP 140/86
[2020-10-23] MEDS: methylPREDNISolone SOD SUCC PF 40 MG/ML VIAL. IV SCH ×3 (06:12→17:22)
[2020-10-23 07:00] VITALS: BP 180/85
[2020-10-23] MEDS: IPRATROPIUM/ALBUTEROL 20/100mcg/INH INHALER. INH SCH ×2 (08:00→20:37)
[2020-10-23] MEDS: BUDESONIDE 0.5 MG/2 ML NEBU. NEB SCH ×2 (08:01→20:01)
--- NOTE | 2020-10-23 09:08 | PDOC ---
PROGRESS NOTES Date of Service: DATE: 10/23/20 TIME: 09:08 Chief Complaint Chief Complaint Shortness of Air History of Present Illness History of Present Illness 10/23/2020 on 3 liters nc Patient was seen and examined today. She shared no new concerns or questions. Discussed care with RN and case management. Chart and specialist notes reviewed. Patient is a 60-year-old female past medical history COPD on 2 L at baseline who presents to the ED with complaints of worsening shortness of breath over the past 2 weeks. Her symptoms are worse with ambulation. She states that her symptoms have been ongoing for the past 2 months, and seen by her PCP and treated with doxycycline and prednisone with brief improvement. She reports associated cough productive of yellow sputum. She lives at home with her and denies any sick contacts, fever, nausea, vomiting, or diarrhea. Discussed with ER provider, recommend obtaining CTA. Will admit patient for further medical management. Continue supplemental oxygen to keep oxygen saturations greater than 92% Continue home Breo As needed bronchodilators Pulmicort/DuoNeb Continue antibiotics currently on azithromycin d/c planning 35 min 10/22/2020 Patient was seen and examined today. She shared no new concerns or questions. Discussed care with RN and case management. Chart and specialist notes reviewed. Patient is a 60-year-old female past medical history COPD on 2 L at baseline who presents to the ED with complaints of worsening shortness of breath over the past 2 weeks. Her symptoms are worse with ambulation. She states that her symptoms have been ongoing for the past 2 months, and seen by her PCP and treated with doxycycline and prednisone with brief improvement. She reports associated cough productive of yellow sputum. She lives at home with her and denies any sick contacts, fever, nausea, vomiting, or diarrhea. Discussed with ER provider, recommend obtaining CTA. Will admit patient for further medical management. Vitals Vitals Vital Signs Date Time Temp Pulse Resp B/P (MAP) Pulse Ox O2 Delivery O2 Flow Rate FiO2 10/23/20 08:01 94 Nasal Cannula 3.0 10/23/20 02:57 98.2 77 18 140/86 (104) 98.2 Physical Exam General: Alert, Oriented X3, Cooperative, No acute distress Heart: Regular rate, No murmurs Lungs: Wheezing, Crackles Abdomen: Normal bowel sounds, No tenderness Extremities: No clubbing, No cyanosis Skin: No rashes, No significant lesion Assessment and Plan Assessmemt and Plan Problems Medical Problems: (1) Hypoxia Status: Acute (2) Shortness of breath Status: Acute Comment Review of Relevant I have reviewed the following items paulette (where applicable) has been applied. Labs Laboratory Tests Test 10/21/20 15:40 10/21/20 16:34 10/21/20 22:10 White Blood Count 4.6 x10^3/uL (4.0-11.0) Red Blood Count 4.24 x10^6/uL (3.50-5.40) Hemoglobin 12.8 g/dL (12.0-15.5) Hematocrit 38.8 % (36.0-47.0) Mean Corpuscular Volume 91 fL (79-100) Mean Corpuscular Hemoglobin 30 pg (25-35) Mean Corpuscular Hemoglobin Concent 33 g/dL (31-37) Red Cell Distribution Width 14.0 % (11.5-14.5) Platelet Count 235 x10^3/uL (140-400) Neutrophils (%) (Auto) 38 % (31-73) Lymphocytes (%) (Auto) 40 % (24-48) Monocytes (%) (Auto) 15 % (0-9) Eosinophils (%) (Auto) 6 % (0-3) Basophils (%) (Auto) 1 % (0-3) Neutrophils # (Auto) 1.7 x10^3/uL (1.8-7.7) Lymphocytes # (Auto) 1.8 x10^3/uL (1.0-4.8) Monocytes # (Auto) 0.7 x10^3/uL (0.0-1.1) Eosinophils # (Auto) 0.3 x10^3/uL (0.0-0.7) Basophils # (Auto) 0.0 x10^3/uL (0.0-0.2) Sodium Level 144 mmol/L (136-145) Potassium Level 4.6 mmol/L (3.5-5.1) Chloride Level 104 mmol/L (98-107) Carbon Dioxide Level 37 mmol/L (21-32) Anion Gap 3 (6-14) Blood Urea Nitrogen 11 mg/dL (7-20) Creatinine 0.6 mg/dL (0.6-1.0) Estimated GFR (Cockcroft-Gault) 122.6 BUN/Creatinine Ratio 18 (6-20) Glucose Level 89 mg/dL (70-99) Calcium Level 8.8 mg/dL (8.5-10.1) Magnesium Level 2.0 mg/dL (1.8-2.4) Total Bilirubin 0.5 mg/dL (0.2-1.0) Aspartate Amino Transf (AST/SGOT) 21 U/L (15-37) Alanine Aminotransferase (ALT/SGPT) 17 U/L (14-59) Alkaline Phosphatase 62 U/L (46-116) Creatine Kinase 319 U/L (26-192) Creatine Kinase MB (Mass) 3.3 ng/mL (0.0-3.6) Creatine Kinase MB Relative Index 1.0 % (0-4) Troponin I Quantitative < 0.017 ng/mL (0.000-0.055) QQ-Fou-L-Type Natriuretic Peptide 190 pg/mL (0-124) Total Protein 6.6 g/dL (6.4-8.2) Albumin 4.0 g/dL (3.4-5.0) Albumin/Globulin Ratio 1.5 (1.0-1.7) Lipase 125 U/L (73-393) Urine Collection Type Void Urine Color Yellow Urine Clarity Cloudy Urine pH 7.0 (<5.0-8.0) Urine Specific [place] 1.020 (1.000-1.030) Urine Protein Negative mg/dL (NEG-TRACE) Urine Glucose (UA) Negative mg/dL (NEG) Urine Ketones (Stick) Negative mg/dL (NEG) Urine Blood Negative (NEG) Urine Nitrite Negative (NEG) Urine Bilirubin Negative (NEG) Urine Urobilinogen Dipstick 1.0 mg/dL (0.2 mg/dL) Urine Leukocyte Esterase Small (NEG) Urine RBC Rare /HPF (0-2) Urine WBC Rare /HPF (0-4) Urine Squamous Epithelial Cells Many /LPF Urine Bacteria Moderate /HPF (0-FEW) Urine Mucus Mod /LPF SARS-CoV-2 RNA (JAMAR) Negative (Negative) Medications Current Medications Iohexol (Omnipaque 350 Mg/ml) 90 ml 1X ONCE IV ; Start 10/21/20 at 17:45; Stop 10/21/20 at 17:46; Status DC Info (CONTRAST GIVEN -- Rx MONITORING) 1 each PRN DAILY PRN MC SEE COMMENTS; Start 10/21/20 at 17:45; Stop 10/23/20 at 17:44 Alprazolam (Xanax) 0.25 mg BID PO Last administered on 10/22/20at 20:18; Start 10/21/20 at 21:00 Aspirin (Ecotrin) 81 mg DAILY PO Last administered on 10/22/20at 08:12; Start 10/22/20 at 09:00 Clopidogrel Bisulfate (Plavix) 75 mg DAILY PO Last administered on 10/22/20at 08:12; Start 10/22/20 at 09:00 Sertraline HCl (Zoloft) 50 mg HS PO Last administered on 10/22/20at 20:18; Start 10/21/20 at 21:00 Fluticasone/ Vilanterol (Breo Ellipta 100-25 Mcg) 1 puff DAILY INH Last administered on 10/22/20at 08:13; Start 10/21/20 at 21:00 Methylprednisolone Sodium Succinate (SOLU-Medrol 40MG VIAL) 80 mg Q6HRS IV Last administered on 10/23/20at 06:12; Start 10/21/20 at 18:00 Azithromycin (Zithromax) 500 mg 1X ONCE PO Last administered on 10/21/20at 18:35; Start 10/21/20 at 18:00; Stop 10/21/20 at 18:01; Status DC Azithromycin (Zithromax) 250 mg DAILY PO Last administered on 10/22/20at 08:13; Start 10/22/20 at 09:00; Stop 10/26/20 at 08:59 Guaifenesin/ Codeine Phosphate (Robitussin Ac) 5 ml PRN Q6HRS PRN PO COUGH Last administered on 10/22/20at 20:18; Start 10/21/20 at 18:00 Ondansetron HCl (Zofran) 4 mg PRN Q6HRS PRN IVP NAUSEA/VOMITING; Start 10/21/20 at 18:00 Al Hydroxide/Mg Hydroxide (Mylanta Plus Xs) 30 ml PRN Q3HRS PRN PO HEARTBURN / GAS; Start 10/21/20 at 18:00 Calcium Carbonate/ Glycine (Tums) 500 mg PRN Q3HRS PRN PO UPSET STOMACH; Start 10/21/20 at 18:00 Zolpidem Tartrate (Ambien) 5 mg PRN QHS PRN PO INSOMNIA, MAY REPEAT IN 1HR; Start 10/21/20 at 18:00 Acetaminophen/ Hydrocodone Bitart (Lortab 5/325) 1 tab PRN Q4HRS PRN PO MODERATE-SEVERE PAIN; Start 10/21/20 at 18:00 Acetaminophen (Tylenol) 650 mg PRN Q6HRS PRN PO Headaches, Temp > 101.5F Last administered on 10/22/20at 17:54; Start 10/21/20 at 18:00 Magnesium Hydroxide (Milk Of Magnesia) 2,400 mg PRN Q12HR PRN PO CONSTIPATION; Start 10/21/20 at 18:00 Bisacodyl (Dulcolax Supp) 10 mg PRN DAILY PRN [place] CONSTIPATION- 2ND CHOICE; Start 10/21/20 at 18:00 Enoxaparin Sodium (Lovenox 40mg Syringe) 40 mg Q24H SQ Last administered on 10/22/20at 20:19; Start 10/21/20 at 21:00 Hydralazine HCl (Apresoline Inj) 10 mg PRN Q2HRS PRN IVP HYPERTENSION; Start 10/21/20 at 18:15 Albuterol/ Ipratropium (Duoneb) 3 ml RTQID NEB ; Start 10/22/20 at 08:30; Stop 10/22/20 at 09:24; Status DC Budesonide (Pulmicort) 0.5 mg RTBID NEB Last administered on 10/23/20at 08:01; Start 10/22/20 at 08:30 Albuterol/ Ipratropium (Combivent Respimat 20-100 Mcg) 2 puff RTBID INH Last administered on 10/22/20at 20:05; Start 10/22/20 at 09:30 Furosemide (Lasix) 20 mg DAILY16 PO Last administered on 10/22/20at 16:23; Start 10/22/20 at 16:00 Amlodipine Besylate (Norvasc) 10 mg DAILY PO ; Start 10/23/20 at 09:00 Lactobacillus Rhamnosus (Culturelle) 1 cap BID PO Last administered on 10/22/20at 20:18; Start 10/22/20 at 21:00 Active Scripts Active Fluticasone Propionate Nasal [place] (Fluticasone Propionate) 16 Gm [place].susp 2 [place] NS DAILY 30 Days Tizanidine Hcl 4 Mg Tablet 2 Mg PO PRN Q8HRS PRN Cetirizine Hcl 10 Mg Tablet 10 Mg PO DAILY [guaiFENesin/CODEINE 100mg/10mg] 5 ML Liquid 5 Ml PO PRN Q6HRS PRN Ferrous Sulfate 300 Mg/5 Ml Liquid 300 Mg PO BIDWMEALS 30 Days Potassium Chloride (Potassium Chloride) 10 Meq Capsule.er 1 Cap PO DAILY Reported Diclofenac Sodium 75 Mg Tablet.dr 1 Tab PO BID Oxybutynin Chloride Er (Oxybutynin Chloride) 10 Mg Tab.er.24 1 Tab PO DAILY Estradiol 0.5 Mg Tablet 0.5 Mg PO DAILY Rosuvastatin Calcium 5 Mg Tablet 5 Mg PO HS Xanax (Alprazolam) 0.25 Mg Tablet 0.25 Mg PO TID PRN Protonix (Pantoprazole Sodium) 20 Mg Tablet. 40 Mg PO DAILY Zoloft (Sertraline Hcl) 50 Mg Tablet 1 Tab PO HS Clopidogrel (Clopidogrel Bisulfate) 75 Mg Tablet 1 Tab PO DAILY Singulair Tablet (Montelukast Sodium) 10 Mg Tablet 1 Tab PO HS Lasix (Furosemide) 20 Mg Tablet 1 Tab PO DAILY16 Symbicort 160-4.5 Mcg Inhaler (Budesonide/Formoterol Fumarate) 10.2 Gm Hfa.aer.ad 10.2 Gm IH BID Albuterol Sulfate Hfa Inhaler (Albuterol Sulfate) 8.5 Gm Hfa.aer.ad 8.5 Gm IH PRN Duoneb 0.5 Mg-3 Mg/3 Ml Soln (Ipratropium/Albuterol Sulfate) 3 Ml Ampul.neb 3 Ml IH QID Aspir 81 (Aspirin) 81 Mg Tablet. 81 Mg PO DAILY Vitals/I & O Vital Sign - Last 24 Hours 10/22/20 10/22/20 10/22/20 10/22/20 11:00 12:42 15:00 19:00 Temp 98.4 98.4 99.0 98.4 98.4 99.0 Pulse 83 95 98 Resp 18 18 20 B/P (MAP) 166/95 (118) 161/94 (116) 169/94 (119) Pulse Ox 93 90 91 93 O2 Delivery Nasal Cannula Nasal Cannula Nasal Cannula Nasal Cannula O2 Flow Rate 3.0 3.0 3.0 3.0 10/22/20 10/22/20 10/22/20 10/23/20 20:00 20:23 23:21 02:57 Temp 98.7 98.2 98.7 98.2 Pulse 83 77 Resp 18 18 B/P (MAP) 153/85 (107) 140/86 (104) Pulse Ox 92 94 93 O2 Delivery Nasal Cannula Nasal Cannula Nasal Cannula Nasal Cannula O2 Flow Rate 4.0 4.0 3.0 3.0 10/23/20 08:01 Pulse Ox 94 O2 Delivery Nasal Cannula O2 Flow Rate 3.0 Intake and Output 10/22/20 10/22/20 10/23/20 15:00 23:00 07:00 Intake Total 120 ml Balance 120 ml Justicifation of Admission Dx: Justifications for Admission: Justification of Admission Dx: Yes CORWIN FLOREZ MD October 23, 2020 09:08
[2020-10-23 09:12] LABS: BASO % 0 % (0-3); EOS % 0 % (0-3); HEMATOCRIT 39.5 % (36.0-47.0); HEMOGLOBIN 12.9 g/dL (12.0-15.5); LYMPH # 0.9 x10^3/uL (1.0-4.8); LYMPH % 8 % (24-48); MEAN CORPUSCULAR HEMOGLOBIN 30 pg (25-35); MEAN CORPUSCULAR HGB CONC 33 g/dL (31-37); MEAN CORPUSCULAR VOLUME 92 fL (79-100); MONO # 0.3 x10^3/uL (0.0-1.1); MONO % 2 % (0-9); NEUT # 10.3 x10^3/uL (1.8-7.7); NEUT % 90 % (31-73); PLATELET COUNT 255 x10^3/uL (140-400); RED BLOOD COUNT 4.31 x10^6/uL (3.50-5.40); WHITE BLOOD COUNT 11.5 x10^3/uL (4.0-11.0)
[2020-10-23 09:28] LABS: CALCIUM 8.9 mg/dL (8.5-10.1); CREATININE 0.8 mg/dL (0.6-1.0); GFR 87.9
--- NOTE | 2020-10-23 09:42 | PDOC ---
PULMONARY PROGRESS NOTES DATE: 10/23/20 TIME: 09:38 Subjective Patient is up to the chair today, now on nasal cannula oxygen currently at her baseline No increased shortness of breath or cough Ports mild shortness of breath with exertion Vitals Vital Signs Date Time Temp Pulse Resp B/P (MAP) Pulse Ox O2 Delivery O2 Flow Rate FiO2 10/23/20 08:01 94 Nasal Cannula 3.0 10/23/20 07:00 98.1 79 19 180/85 (116) 98.1 ROS: No Nausea, No Chest Pain, No Abdominal Pain, No Increase Cough General: Alert, Oriented X4 Lungs: Wheezing, Crackles Cardiovascular: S1, S2 Abdomen: Soft, Non-tender Extremities: Other Labs Laboratory Tests Test 10/21/20 15:40 10/21/20 16:34 10/21/20 22:10 10/23/20 08:35 White Blood Count 4.6 x10^3/uL (4.0-11.0) 11.5 x10^3/uL (4.0-11.0) Red Blood Count 4.24 x10^6/uL (3.50-5.40) 4.31 x10^6/uL (3.50-5.40) Hemoglobin 12.8 g/dL (12.0-15.5) 12.9 g/dL (12.0-15.5) Hematocrit 38.8 % (36.0-47.0) 39.5 % (36.0-47.0) Mean Corpuscular Volume 91 fL (79-100) 92 fL (79-100) Mean Corpuscular Hemoglobin 30 pg (25-35) 30 pg (25-35) Mean Corpuscular Hemoglobin Concent 33 g/dL (31-37) 33 g/dL (31-37) Red Cell Distribution Width 14.0 % (11.5-14.5) 14.0 % (11.5-14.5) Platelet Count 235 x10^3/uL (140-400) 255 x10^3/uL (140-400) Neutrophils (%) (Auto) 38 % (31-73) 90 % (31-73) Lymphocytes (%) (Auto) 40 % (24-48) 8 % (24-48) Monocytes (%) (Auto) 15 % (0-9) 2 % (0-9) Eosinophils (%) (Auto) 6 % (0-3) 0 % (0-3) Basophils (%) (Auto) 1 % (0-3) 0 % (0-3) Neutrophils # (Auto) 1.7 x10^3/uL (1.8-7.7) 10.3 x10^3/uL (1.8-7.7) Lymphocytes # (Auto) 1.8 x10^3/uL (1.0-4.8) 0.9 x10^3/uL (1.0-4.8) Monocytes # (Auto) 0.7 x10^3/uL (0.0-1.1) 0.3 x10^3/uL (0.0-1.1) Eosinophils # (Auto) 0.3 x10^3/uL (0.0-0.7) 0.0 x10^3/uL (0.0-0.7) Basophils # (Auto) 0.0 x10^3/uL (0.0-0.2) 0.0 x10^3/uL (0.0-0.2) Sodium Level 144 mmol/L (136-145) 144 mmol/L (136-145) Potassium Level 4.6 mmol/L (3.5-5.1) 4.0 mmol/L (3.5-5.1) Chloride Level 104 mmol/L (98-107) 101 mmol/L (98-107) Carbon Dioxide Level 37 mmol/L (21-32) 37 mmol/L (21-32) Anion Gap 3 (6-14) 6 (6-14) Blood Urea Nitrogen 11 mg/dL (7-20) 16 mg/dL (7-20) Creatinine 0.6 mg/dL (0.6-1.0) 0.8 mg/dL (0.6-1.0) Estimated GFR (Cockcroft-Gault) 122.6 87.9 BUN/Creatinine Ratio 18 (6-20) Glucose Level 89 mg/dL (70-99) 155 mg/dL (70-99) Calcium Level 8.8 mg/dL (8.5-10.1) 8.9 mg/dL (8.5-10.1) Magnesium Level 2.0 mg/dL (1.8-2.4) Total Bilirubin 0.5 mg/dL (0.2-1.0) Aspartate Amino Transf (AST/SGOT) 21 U/L (15-37) Alanine Aminotransferase (ALT/SGPT) 17 U/L (14-59) Alkaline Phosphatase 62 U/L (46-116) Creatine Kinase 319 U/L (26-192) Creatine Kinase MB (Mass) 3.3 ng/mL (0.0-3.6) Creatine Kinase MB Relative Index 1.0 % (0-4) Troponin I Quantitative < 0.017 ng/mL (0.000-0.055) LF-Fkd-U-Type Natriuretic Peptide 190 pg/mL (0-124) Total Protein 6.6 g/dL (6.4-8.2) Albumin 4.0 g/dL (3.4-5.0) Albumin/Globulin Ratio 1.5 (1.0-1.7) Lipase 125 U/L (73-393) Urine Collection Type Void Urine Color Yellow Urine Clarity Cloudy Urine pH 7.0 (<5.0-8.0) Urine Specific [place] 1.020 (1.000-1.030) Urine Protein Negative mg/dL (NEG-TRACE) Urine Glucose (UA) Negative mg/dL (NEG) Urine Ketones (Stick) Negative mg/dL (NEG) Urine Blood Negative (NEG) Urine Nitrite Negative (NEG) Urine Bilirubin Negative (NEG) Urine Urobilinogen Dipstick 1.0 mg/dL (0.2 mg/dL) Urine Leukocyte Esterase Small (NEG) Urine RBC Rare /HPF (0-2) Urine WBC Rare /HPF (0-4) Urine Squamous Epithelial Cells Many /LPF Urine Bacteria Moderate /HPF (0-FEW) Urine Mucus Mod /LPF SARS-CoV-2 RNA (JAMAR) Negative (Negative) Laboratory Tests Test 10/23/20 08:35 White Blood Count 11.5 x10^3/uL (4.0-11.0) Red Blood Count 4.31 x10^6/uL (3.50-5.40) Hemoglobin 12.9 g/dL (12.0-15.5) Hematocrit 39.5 % (36.0-47.0) Mean Corpuscular Volume 92 fL (79-100) Mean Corpuscular Hemoglobin 30 pg (25-35) Mean Corpuscular Hemoglobin Concent 33 g/dL (31-37) Red Cell Distribution Width 14.0 % (11.5-14.5) Platelet Count 255 x10^3/uL (140-400) Neutrophils (%) (Auto) 90 % (31-73) Lymphocytes (%) (Auto) 8 % (24-48) Monocytes (%) (Auto) 2 % (0-9) Eosinophils (%) (Auto) 0 % (0-3) Basophils (%) (Auto) 0 % (0-3) Neutrophils # (Auto) 10.3 x10^3/uL (1.8-7.7) Lymphocytes # (Auto) 0.9 x10^3/uL (1.0-4.8) Monocytes # (Auto) 0.3 x10^3/uL (0.0-1.1) Eosinophils # (Auto) 0.0 x10^3/uL (0.0-0.7) Basophils # (Auto) 0.0 x10^3/uL (0.0-0.2) Sodium Level 144 mmol/L (136-145) Potassium Level 4.0 mmol/L (3.5-5.1) Chloride Level 101 mmol/L (98-107) Carbon Dioxide Level 37 mmol/L (21-32) Anion Gap 6 (6-14) Blood Urea Nitrogen 16 mg/dL (7-20) Creatinine 0.8 mg/dL (0.6-1.0) Estimated GFR (Cockcroft-Gault) 87.9 Glucose Level 155 mg/dL (70-99) Calcium Level 8.9 mg/dL (8.5-10.1) Medications Active Scripts Medications Dose Route/Sig Max Daily Dose Days Date Category Diclofenac Sodium 75 Mg Tablet.dr 1 Tab PO BID 10/22/20 Reported Oxybutynin Chloride Er (Oxybutynin Chloride) 10 Mg Tab.er.24 1 Tab PO DAILY 10/22/20 Reported Estradiol 0.5 Mg Tablet 0.5 Mg PO DAILY 10/22/20 Reported Rosuvastatin Calcium 5 Mg Tablet 5 Mg PO HS 10/22/20 Reported Fluticasone Propionate Nasal [place] (Fluticasone Propionate) 16 Gm [place].susp 2 [place] NS DAILY 30 07/10/19 Rx Tizanidine Hcl 4 Mg Tablet 2 Mg PO PRN Q8HRS PRN 07/10/19 Rx Cetirizine Hcl 10 Mg Tablet 10 Mg PO DAILY 07/10/19 Rx [guaiFENesin/CODEINE 100mg/10mg] 5 ML Liquid 5 Ml PO PRN Q6HRS PRN 03/28/19 Rx Xanax (Alprazolam) 0.25 Mg Tablet 0.25 Mg PO TID PRN 03/24/19 Reported Protonix (Pantoprazole Sodium) 20 Mg Tablet.dr 40 Mg PO DAILY 01/13/19 Reported Ferrous Sulfate 300 Mg/5 Ml Liquid 300 Mg PO BIDWMEALS 30 08/29/18 Rx Zoloft (Sertraline Hcl) 50 Mg Tablet 1 Tab PO HS 05/10/18 Reported Clopidogrel (Clopidogrel Bisulfate) 75 Mg Tablet 1 Tab PO DAILY 02/25/18 Reported Potassium Chloride (Potassium Chloride) 10 Meq Capsule.er 1 Cap PO DAILY 04/26/15 Rx Singulair Tablet (Montelukast Sodium) 10 Mg Tablet 1 Tab PO HS 04/27/14 Reported Lasix (Furosemide) 20 Mg Tablet 1 Tab PO DAILY16 04/27/14 Reported Symbicort 160-4.5 Mcg Inhaler (Budesonide/Formoterol Fumarate) 10.2 Gm Hfa.aer.ad 10.2 Gm IH BID 07/28/13 Reported Albuterol Sulfate Hfa Inhaler (Albuterol Sulfate) 8.5 Gm Hfa.aer.ad 8.5 Gm IH PRN 07/28/13 Reported Duoneb 0.5 Mg-3 Mg/3 Ml Soln (Ipratropium/Albuterol Sulfate) 3 Ml Ampul.neb 3 Ml IH QID 07/28/13 Reported Aspir 81 (Aspirin) 81 Mg Tablet. 81 Mg PO DAILY 07/28/[address] IMPRESSION: 1. No convincing pulmonary embolism. Evaluation of the distal pulmonary arteries is limited due to respiratory motion. 2. Suspected pulmonary artery hypertension. 3. Bilateral lower lobe and posterior dependent atelectasis. No consolidated infiltrate is seen. 4. Mild central bronchial wall thickening. This can be seen as a sequela of bronchitis. 5. Prominent right hilar lymph nodes, likely physiologic or reactive in etiology. Impression . IMPRESSION: 1. Acute exacerbation of chronic obstructive pulmonary disease, triggered by acute bronchitis.--resolved 2. No definite pneumonia seen on the CT chest. 3. Abnormal CT chest with some mild basal atelectasis and some pleural thickening. No definite consolidation seen and no definite pulmonary embolism seen. 4. The patient with chronic hypoxic respiratory failure secondary to severe chronic obstructive pulmonary disease. Oxygen requirement has not changed. Plan . RECOMMENDATIONS: Continue supplemental oxygen to keep oxygen saturations greater than 92% Continue home Breo As needed bronchodilators Pulmicort/DuoNeb Continue antibiotics currently on azithromycin Continue steroids with slow taper Pretension per PCP DVT/GI prophylaxis Discussed with WATSON Altamirano to discharge home from our standpoint TRACEE PIZARRO MD October 23, 2020 09:42
[2020-10-23] MEDS: amLODIPine BESYLATE 10 MG TABLET PO SCH (10:37)
[2020-10-23] MEDS: FUROSEMIDE 20 MG TABLET PO SCH (10:37)
[2020-10-23] MEDS: ALPRAZolam 0.25 MG TABLET PO SCH ×2 (10:37→20:38)
[2020-10-23] MEDS: ASPIRIN ENTERIC COATED 81 MG TABLET.DR. PO SCH (10:38)
[2020-10-23] MEDS: AZITHROMYCIN 250 MG TABLET. PO SCH (10:38)
[2020-10-23] MEDS: LACTOBACILLUS RHAMNOSUS GG 1 CAPSULE. PO SCH ×2 (10:38→20:38)
[2020-10-23] MEDS: CLOPIDOGREL BISULFATE 75 MG TABLET PO SCH (10:38)
[2020-10-23] MEDS: FLUTICASONE/VILANTEROL 100/25 INHALER. INH SCH (10:40)
[2020-10-23 11:00] VITALS: BP 160/92
[2020-10-23 11:33] LABS: % ATYL 1 % (0-0); % BANDS 3 % (0-9); % LYMPHS 6 % (24-48); % MONOS 2 % (0-10); % SEGS 88 % (35-66)
[2020-10-23 11:34] LABS: PLT ESTIMATE ADEQUATE (ADEQUATE)
--- NOTE | 2020-10-23 14:21 | PDOC3 ---
Discharge Summary Date of Admission: October 21, 2020 Date of Discharge: October 23, 2020 Follow-Up: 3-5 days Admitting Diagnosis comment: HOSPITAL COURSE HPI Patient is a 60-year-old female past medical history COPD on 2 L at baseline who presented to the ED with complaints of worsening shortness of breath over the past 2 weeks. Her symptoms are worse with ambulation. She states that her symptoms have been ongoing for the past 2 months, and seen by her PCP and treated with doxycycline and prednisone with brief improvement. She reports associated cough productive of yellow sputum. She lives at home with her and denies any sick contacts, fever, nausea, vomiting, or diarrhea. Discussed with ER provider, recommend obtaining CTA. Will admit patient for further medical management. consults pulmonary med complications none prognosis excellent with compliance d/c condition good d/c meds see MAR PROCEDURES CTA CHEST SEE PCP IN 3-7 DAYS d/c planning 35 min discharge dx Assessment/Plan Acute respiratory failure with hypoxia Acute COPD exacerbation CAD morbid obesity plan Plan: COVID-19 pending Will continue treatment with azithromycin given penicillin allergy and Solu- Medrol 80 mg IV every 6 hours with taper. Will place consultation to pulmonology CTA pending Will provide inhaled steroid She will need 6-minute walk prior to discharge Resume home medications FEN - Cardiac diet PPX - Lovenox FULL CODE Dispo - inpatient for above; patient names her as her surrogate decision-maker History of Present Illness History of Present Illness 10/23/2020 on 3 liters nc Patient was seen and examined today. She shared no new concerns or questions. Discussed care with RN and case management. Chart and specialist notes reviewed. Patient is a 60-year-old female past medical history COPD on 2 L at baseline who presents to the ED with complaints of worsening shortness of breath over the past 2 weeks. Her symptoms are worse with ambulation. She states that her symp toms have been ongoing for the past 2 months, and seen by her PCP and treated with doxycycline and prednisone with brief improvement. She reports associated cough productive of yellow sputum. She lives at home with her and denies any sick contacts, fever, nausea, vomiting, or diarrhea. Discussed with ER provider, recommend obtaining CTA. Will admit patient for further medical management. Continue supplemental oxygen to keep oxygen saturations greater than 92% Continue home Breo As needed bronchodilators Pulmicort/DuoNeb Continue antibiotics currently on azithromycin d/c planning 35 min 10/22/2020 Patient was seen and examined today. She shared no new concerns or questions. Discussed care with RN and case management. Chart and specialist notes reviewed. Patient is a 60-year-old female past medical history COPD on 2 L at baseline who presents to the ED with complaints of worsening shortness of breath over the past 2 weeks. Her symptoms are worse with ambulation. She states that her symptoms have been ongoing for the past 2 months, and seen by her PCP and treated with doxycycline and prednisone with brief improvement. She reports associated cough productive of yellow sputum. She lives at home with her and denies any sick contacts, fever, nausea, vomiting, or diarrhea. Discussed with ER provider, recommend obtaining CTA. Will admit patient for further medical management. Vitals Vitals Vital Signs Date Time Temp Pulse Resp B/P (MAP) Pulse Ox O2 Delivery O2 Flow Rate FiO2 10/23/20 08:01 94 Nasal Cannula 3.0 10/23/20 02:57 98.2 77 18 140/86 (104) 98.2 Physical Exam General: Alert, Oriented X3, Cooperative, No acute distress Heart: Regular rate, No murmurs Lungs: Wheezing, Crackles Abdomen: Normal bowel sounds, No tenderness Extremities: No clubbing, No cyanosis Skin: No rashes, No significant lesion Assessment and Plan Assessmemt and Plan Problems Medical Problems: (1) Hypoxia Status: Acute (2) Shortness of breath Status: Acute Comment Review of Relevant I have reviewed the following items paulette (where applicable) has been applied. Labs EXAM: CT angiography of the chest with intravenous contrast. HISTORY: Shortness of breath. Hypoxia. TECHNIQUE: Computed tomographic images of the chest were obtained following the administration of intravenous contrast according to angiography protocol. Multiplanar reformatting was performed and three dimensional maximum intensity projection images were obtained. *One or more of the following individualized dose reduction techniques were utilized for this examination: 1. Automated exposure control. 2. Adjustment of the mA and/or kV according to patient size. 3. Use of iterative reconstruction technique. COMPARISON: 08/23/2018. FINDINGS: Evaluation of the distal pulmonary arteries is limited due to respiratory motion. No central pulmonary embolism is seen. There are enlarged central ulnar arteries likely due to pulmonary artery hypertension. There is no aortic aneurysm or dissection. There is aortic and aortic great vessel calcified atherosclerotic plaque. The left vertebral artery originates directly from the aortic arch, a normal aortic arch branching variant. There are prominent right hilar lymph nodes. The heart is upper normal in size. There is no pneumothorax or pleural effusion. There is mild emphysema. There is bilateral basilar and posterior dependent atelectasis. There is mild central bronchial wall thickening. There is a 2.0 cm nonspecific groundglass opacity within the right upper lobe, likely postinfectious or postinflammatory. There is no consolidated infiltrate. There is lingular atelectasis or scarring. There is reflux of contrast into the inferior vena cava. This can be seen with right heart failure. There is no acute finding involving the upper abdomen. There is colonic diverticulosis. There are degenerative changes throughout the spine. There is no suspicious osseous lesion. IMPRESSION: 1. No convincing pulmonary embolism. Evaluation of the distal pulmonary arteries is limited due to respiratory motion. 2. Suspected pulmonary artery hypertension. 3. Bilateral lower lobe and posterior dependent atelectasis. No consolidated infiltrate is seen. 4. Mild central bronchial wall thickening. This can be seen as a sequela of bronchitis. 5. Prominent right hilar lymph nodes, likely physiologic or reactive in etiology. Electronically signed by: Tiara Finch MD (10/21/2020 6:23 PM) [facility] DICTATED and SIGNED BY: TIARA FINCH MD DATE: 10/21/20 [id number] 0 FINAL DIAGNOSIS Problems Medical Problems: (1) Hypoxia Status: Acute (2) Shortness of breath Status: Acute Brief Hospital Course Ms. Stevens is a 60 old [sex] who presented with [ copd exac ] CONDITION AT DISCHARGE: Improved Discharge Medications Current Medications Iohexol (Omnipaque 350 Mg/ml) 90 ml 1X ONCE IV ; Start 10/21/20 at 17:45; Stop 10/21/20 at 17:46; Status DC Info (CONTRAST GIVEN -- Rx MONITORING) 1 each PRN DAILY PRN MC SEE COMMENTS; Start 10/21/20 at 17:45; Stop 10/23/20 at 17:44 Alprazolam (Xanax) 0.25 mg BID PO Last administered on 10/23/20at 10:37; Start 10/21/20 at 21:00 Aspirin (Ecotrin) 81 mg DAILY PO Last administered on 10/23/20at 10:38; Start at 09:00 Clopidogrel Bisulfate (Plavix) 75 mg DAILY PO Last administered on 10/23/20at 10:38; Start 10/22/20 at 09:00 Sertraline HCl (Zoloft) 50 mg HS PO Last administered on 10/22/20at 20:18; Start 10/21/20 at 21:00 Fluticasone/ Vilanterol (Breo Ellipta 100-25 Mcg) 1 puff DAILY INH Last administered on 10/23/20at 10:40; Start 10/21/20 at 21:00 Methylprednisolone Sodium Succinate (SOLU-Medrol 40MG VIAL) 80 mg Q6HRS IV Last administered on 10/23/20at 12:28; Start 10/21/20 at 18:00 Azithromycin (Zithromax) 500 mg 1X ONCE PO Last administered on 10/21/20at 18:35; Start 10/21/20 at 18:00; Stop 10/21/20 at 18:01; Status DC Azithromycin (Zithromax) 250 mg DAILY PO Last administered on 10/23/20at 10:38; Start 10/22/20 at 09:00; Stop 10/26/20 at 08:59 Guaifenesin/ Codeine Phosphate (Robitussin Ac) 5 ml PRN Q6HRS PRN PO COUGH Last administered on 10/22/20at 20:18; Start 10/21/20 at 18:00 Ondansetron HCl (Zofran) 4 mg PRN Q6HRS PRN IVP NAUSEA/VOMITING; Start 10/21/20 at 18:00 Al Hydroxide/Mg Hydroxide (Mylanta Plus Xs) 30 ml PRN Q3HRS PRN PO HEARTBURN / GAS; Start 10/21/20 at 18:00 Calcium Carbonate/ Glycine (Tums) 500 mg PRN Q3HRS PRN PO UPSET STOMACH; Start 10/21/20 at 18:00 Zolpidem Tartrate (Ambien) 5 mg PRN QHS PRN PO INSOMNIA, MAY REPEAT IN 1HR; Start 10/21/20 at 18:00 Acetaminophen/ Hydrocodone Bitart (Lortab 5/325) 1 tab PRN Q4HRS PRN PO MODERATE-SEVERE PAIN; Start 10/21/20 at 18:00 Acetaminophen (Tylenol) 650 mg PRN Q6HRS PRN PO Headaches, Temp > 101.5F Last administered on 10/22/20at 17:54; Start 10/21/20 at 18:00 Magnesium Hydroxide (Milk Of Magnesia) 2,400 mg PRN Q12HR PRN PO CONSTIPATION; Start 10/21/20 at 18:00 Bisacodyl (Dulcolax Supp) 10 mg PRN DAILY PRN [place] CONSTIPATION- 2ND CHOICE; Start 10/21/20 at 18:00 Enoxaparin Sodium (Lovenox 40mg Syringe) 40 mg Q24H SQ Last administered on 10/22/20at 20:19; Start 10/21/20 at 21:00 Hydralazine HCl (Apresoline Inj) 10 mg PRN Q2HRS PRN IVP HYPERTENSION; Start 10/21/20 at 18:15 Albuterol/ Ipratropium (Duoneb) 3 ml RTQID NEB ; Start 10/22/20 at 08:30; Stop 10/22/20 at 09:24; Status DC Budesonide (Pulmicort) 0.5 mg RTBID NEB Last administered on 10/23/20at 08:01; Start 10/22/20 at 08:30 Albuterol/ Ipratropium (Combivent Respimat 20-100 Mcg) 2 puff RTBID INH Last administered on 10/22/20at 20:05; Start 10/22/20 at 09:30 Furosemide (Lasix) 20 mg DAILY16 PO Last administered on 10/23/20at 10:37; Start 10/22/20 at 16:00 Amlodipine Besylate (Norvasc) 10 mg DAILY PO Last administered on 10/23/20at 10:37; Start 10/23/20 at 09:00 Lactobacillus Rhamnosus (Culturelle) 1 cap BID PO Last administered on 10/23/20at 10:38; Start 10/22/20 at 21:00 Active Scripts Active Fluticasone Propionate Nasal [place] (Fluticasone Propionate) 16 Gm [place].susp 2 [place] NS DAILY 30 Days Tizanidine Hcl 4 Mg Tablet 2 Mg PO PRN Q8HRS PRN Cetirizine Hcl 10 Mg Tablet 10 Mg PO DAILY [guaiFENesin/CODEINE 100mg/10mg] 5 ML Liquid 5 Ml PO PRN Q6HRS PRN Ferrous Sulfate 300 Mg/5 Ml Liquid 300 Mg PO BIDWMEALS 30 Days Potassium Chloride (Potassium Chloride) 10 Meq Capsule.er 1 Cap PO DAILY Reported Diclofenac Sodium 75 Mg Tablet.dr 1 Tab PO BID Oxybutynin Chloride Er (Oxybutynin Chloride) 10 Mg Tab.er.24 1 Tab PO DAILY Estradiol 0.5 Mg Tablet 0.5 Mg PO DAILY Rosuvastatin Calcium 5 Mg Tablet 5 Mg PO HS Xanax (Alprazolam) 0.25 Mg Tablet 0.25 Mg PO TID PRN Protonix (Pantoprazole Sodium) 20 Mg Tablet.dr 40 Mg PO DAILY Zoloft (Sertraline Hcl) 50 Mg Tablet 1 Tab PO HS Clopidogrel (Clopidogrel Bisulfate) 75 Mg Tablet 1 Tab PO DAILY Singulair Tablet (Montelukast Sodium) 10 Mg Tablet 1 Tab PO HS Lasix (Furosemide) 20 Mg Tablet 1 Tab PO DAILY16 Symbicort 160-4.5 Mcg Inhaler (Budesonide/Formoterol Fumarate) 10.2 Gm Hfa.aer.ad 10.2 Gm IH BID Albuterol Sulfate Hfa Inhaler (Albuterol Sulfate) 8.5 Gm Hfa.aer.ad 8.5 Gm IH PRN Duoneb 0.5 Mg-3 Mg/3 Ml Soln (Ipratropium/Albuterol Sulfate) 3 Ml Ampul.neb 3 Ml IH QID Aspir 81 (Aspirin) 81 Mg Tablet. 81 Mg PO DAILY Vital Signs Vital Signs Date Time Temp Pulse Resp B/P (MAP) Pulse Ox O2 Delivery O2 Flow Rate FiO2 10/23/20 11:00 98.4 89 18 160/92 (114) 95 Nasal Cannula 3.0 98.4 Labs Laboratory Tests Test 10/21/20 15:40 10/21/20 16:34 10/21/20 22:10 10/23/20 08:35 White Blood Count 4.6 x10^3/uL (4.0-11.0) 11.5 x10^3/uL (4.0-11.0) Red Blood Count 4.24 x10^6/uL (3.50-5.40) 4.31 x10^6/uL (3.50-5.40) Hemoglobin 12.8 g/dL (12.0-15.5) 12.9 g/dL (12.0-15.5) Hematocrit 38.8 % (36.0-47.0) 39.5 % (36.0-47.0) Mean Corpuscular Volume 91 fL (79-100) 92 fL (79-100) Mean Corpuscular Hemoglobin 30 pg (25-35) 30 pg (25-35) Mean Corpuscular Hemoglobin Concent 33 g/dL (31-37) 33 g/dL (31-37) Red Cell Distribution Width 14.0 % (11.5-14.5) 14.0 % (11.5-14.5) Platelet Count 235 x10^3/uL (140-400) 255 x10^3/uL (140-400) Neutrophils (%) (Auto) 38 % (31-73) 90 % (31-73) Lymphocytes (%) (Auto) 40 % (24-48) 8 % (24-48) Monocytes (%) (Auto) 15 % (0-9) 2 % (0-9) Eosinophils (%) (Auto) 6 % (0-3) 0 % (0-3) Basophils (%) (Auto) 1 % (0-3) 0 % (0-3) Neutrophils # (Auto) 1.7 x10^3/uL (1.8-7.7) 10.3 x10^3/uL (1.8-7.7) Lymphocytes # (Auto) 1.8 x10^3/uL (1.0-4.8) 0.9 x10^3/uL (1.0-4.8) Monocytes # (Auto) 0.7 x10^3/uL (0.0-1.1) 0.3 x10^3/uL (0.0-1.1) Eosinophils # (Auto) 0.3 x10^3/uL (0.0-0.7) 0.0 x10^3/uL (0.0-0.7) Basophils # (Auto) 0.0 x10^3/uL (0.0-0.2) 0.0 x10^3/uL (0.0-0.2) Sodium Level 144 mmol/L (136-145) 144 mmol/L (136-145) Potassium Level 4.6 mmol/L (3.5-5.1) 4.0 mmol/L (3.5-5.1) Chloride Level 104 mmol/L (98-107) 101 mmol/L (98-107) Carbon Dioxide Level 37 mmol/L (21-32) 37 mmol/L (21-32) Anion Gap 3 (6-14) 6 (6-14) Blood Urea Nitrogen 11 mg/dL (7-20) 16 mg/dL (7-20) Creatinine 0.6 mg/dL (0.6-1.0) 0.8 mg/dL (0.6-1.0) Estimated GFR (Cockcroft-Gault) 122.6 87.9 BUN/Creatinine Ratio 18 (6-20) Glucose Level 89 mg/dL (70-99) 155 mg/dL (70-99) Calcium Level 8.8 mg/dL (8.5-10.1) 8.9 mg/dL (8.5-10.1) Magnesium Level 2.0 mg/dL (1.8-2.4) Total Bilirubin 0.5 mg/dL (0.2-1.0) Aspartate Amino Transf (AST/SGOT) 21 U/L (15-37) Alanine Aminotransferase (ALT/SGPT) 17 U/L (14-59) Alkaline Phosphatase 62 U/L (46-116) Creatine Kinase 319 U/L (26-192) Creatine Kinase MB (Mass) 3.3 ng/mL (0.0-3.6) Creatine Kinase MB Relative Index 1.0 % (0-4) Troponin I Quantitative < 0.017 ng/mL (0.000-0.055) PR-Afs-L-Type Natriuretic Peptide 190 pg/mL (0-124) Total Protein 6.6 g/dL (6.4-8.2) Albumin 4.0 g/dL (3.4-5.0) Albumin/Globulin Ratio 1.5 (1.0-1.7) Lipase 125 U/L (73-393) Urine Collection Type Void Urine Color Yellow Urine Clarity Cloudy Urine pH 7.0 (<5.0-8.0) Urine Specific [place] 1.020 (1.000-1.030) Urine Protein Negative mg/dL (NEG-TRACE) Urine Glucose (UA) Negative mg/dL (NEG) Urine Ketones (Stick) Negative mg/dL (NEG) Urine Blood Negative (NEG) Urine Nitrite Negative (NEG) Urine Bilirubin Negative (NEG) Urine Urobilinogen Dipstick 1.0 mg/dL (0.2 mg/dL) Urine Leukocyte Esterase Small (NEG) Urine RBC Rare /HPF (0-2) Urine WBC Rare /HPF (0-4) Urine Squamous Epithelial Cells Many /LPF Urine Bacteria Moderate /HPF (0-FEW) Urine Mucus Mod /LPF SARS-CoV-2 RNA (JAMAR) Negative (Negative) Segmented Neutrophils % 88 % (35-66) Band Neutrophils % 3 % (0-9) Lymphocytes % 6 % (24-48) Atypical Lymphocytes % (Manual) 1 % (0-0) Monocytes % 2 % (0-10) Platelet Estimate Adequate (ADEQUATE) Laboratory Tests Test 10/23/20 08:35 White Blood Count 11.5 x10^3/uL (4.0-11.0) Red Blood Count 4.31 x10^6/uL (3.50-5.40) Hemoglobin 12.9 g/dL (12.0-15.5) Hematocrit 39.5 % (36.0-47.0) Mean Corpuscular Volume 92 fL (79-100) Mean Corpuscular Hemoglobin 30 pg (25-35) Mean Corpuscular Hemoglobin Concent 33 g/dL (31-37) Red Cell Distribution Width 14.0 % (11.5-14.5) Platelet Count 255 x10^3/uL (140-400) Neutrophils (%) (Auto) 90 % (31-73) Lymphocytes (%) (Auto) 8 % (24-48) Monocytes (%) (Auto) 2 % (0-9) Eosinophils (%) (Auto) 0 % (0-3) Basophils (%) (Auto) 0 % (0-3) Neutrophils # (Auto) 10.3 x10^3/uL (1.8-7.7) Lymphocytes # (Auto) 0.9 x10^3/uL (1.0-4.8) Monocytes # (Auto) 0.3 x10^3/uL (0.0-1.1) Eosinophils # (Auto) 0.0 x10^3/uL (0.0-0.7) Basophils # (Auto) 0.0 x10^3/uL (0.0-0.2) Segmented Neutrophils % 88 % (35-66) Band Neutrophils % 3 % (0-9) Lymphocytes % 6 % (24-48) Atypical Lymphocytes % (Manual) 1 % (0-0) Monocytes % 2 % (0-10) Platelet Estimate Adequate (ADEQUATE) Sodium Level 144 mmol/L (136-145) Potassium Level 4.0 mmol/L (3.5-5.1) Chloride Level 101 mmol/L (98-107) Carbon Dioxide Level 37 mmol/L (21-32) Anion Gap 6 (6-14) Blood Urea Nitrogen 16 mg/dL (7-20) Creatinine 0.8 mg/dL (0.6-1.0) Estimated GFR (Cockcroft-Gault) 87.9 Glucose Level 155 mg/dL (70-99) Calcium Level 8.9 mg/dL (8.5-10.1) Allergies Allergies Coded Allergies Type Severity Reaction Last Updated Verified iron Allergy Severe Swelling 10/21/20 Yes Penicillins Allergy Intermediate rash 10/21/20 Yes morphine Allergy Intermediate Rash-PERCOCET OK 10/21/20 Yes benzonatate Adverse Reaction Intermediate Itching 10/21/20 Yes Disposition/Orders: D/C to Home w/ HH Justicifation of Admission Dx: Justifications for Admission: Justification of Admission Dx: Yes CORWIN FLOREZ MD October 23, 2020 14:21
[2020-10-23] MEDS ORDERED: MAG30ORA2 PO (14:34)
[2020-10-23] MEDS ORDERED: LACT1CAP19 PO (14:34)
[2020-10-23] MEDS ORDERED: FLUT1AER2 INH (14:34)
[2020-10-23] MEDS ORDERED: AZIT250T6 PO (14:34)
[2020-10-23] MEDS ORDERED: AMLO-187 PO (14:34)
[2020-10-23] MEDS ORDERED: PRED20TA PO (14:34)
[2020-10-23] MEDS ORDERED: ACET325T21 PO (14:34)
--- NOTE | 2020-10-23 14:36 | SNU/HH DC ---
DISCHARGE WITH HOME HEALTH DISCHARGE INFORMATION: Discharge Date: October 23, 2020 Final Diagnosis: Problems Medical Problems: (1) Hypoxia Status: Acute (2) Shortness of breath Status: Acute Condition on Discharge: Stable CODE STATUS: Code Status: Full HOME HEALTH: Face to Face: I certify this patient is under my care and that I, or a nurse practitioner or physician's senior office assistant working with me, had a face to face encounter that meets the physician face to face encounter requirements with this patient on []. Medical Complications: COPD Residential For: Admin/Educate Injections, Assess Cardiopulm Status, Assess & Educate Safety, Assess/Skilled Observatio, Medication Management RN For Eval/Treatment: Yes Physical Therapy For: Evalulation/Treatment Occupational Therapy For: Evaluation/Treatment Speech Language Pathology For: Evaluation/Treatment Home Health Aide For: Self-care [employer] ATTENDANT For: Community Resources Pt Meets Homebound Status: Fatigue w/ amb. POST DISCHARGE ORDERS: Activity Instructions for Disc: Activity as tolerated Weight Bearing Status after Di: No restrictions DIET AFTER DISCHARGE: Cardiac Wound/Incision Care: No wound care needed CHECKS AFTER DISCHARGE: Checks after discharge: Check blood press - daily FOLLOW-UP: PCP to follow Home Health: see pcp in 3 to 7 days Follow up with: DR PIZARRO 2 WEEKS TREATMENT/EQUIPMENT ORDERS: Adaptive Equipment Issued: None Discharge Respiratory Equipmen: Oxygen, Nebulizer CERTIFICATION STATEMENT: Certification Statement: Certification Statement: Based on the above finding, I certify that this patient is confined to the home and needs intermittent long term care, physical therapy and/or speech therapy, or continues to need occupational therapy.~ This patient is under my care, and I have initiated the establishment of the plan of care.~ This patient will be followed by myself or a community physician who will periodically review the plan of care. Home Meds Active Scripts Prednisone (PREDNISONE) 20 Mg Tablet, 1.5 TAB PO DAILY for copd for 7 Days, #11 TAB Prov:CORWIN FLOREZ MD 10/23/20 Lactobacillus Rhamnosus Gg (CULTURELLE) 1 Each Cap.sprink, 1 CAP PO BID for supplement for 30 Days, #60 CAP Prov:CORWIN FLOREZ MD 10/23/20 Mag Hydrox/Al Hydrox/Simeth (MAG-AL PLUS XS SUSPENSION) 30 Ml Oral.susp, 30 ML PO PRN Q3HRS PRN for HEARTBURN / GAS for 30 Days, #90 MISC Prov:CORWIN FLOREZ MD 10/23/20 Fluticasone/Vilanterol (Breo Ellipta 100-25 Mcg INH) 1 Each Blst.w.dev, 1 PUFF INH DAILY for copd for 30 Days, #1 EACH Prov:CORWIN FLOREZ MD 10/23/20 Acetaminophen (ACETAMINOPHEN) 325 Mg Tablet, 650 MG PO PRN Q6HRS PRN for Headaches, Temp > 101.5F for 30 Days, #100 TAB Prov:CORWIN FLOREZ MD 10/23/20 Amlodipine Besylate (AMLODIPINE BESYLATE) 10 Mg Tablet, 10 MG PO DAILY for blood pressure for 30 Days, #30 TAB Prov:CORWIN FLOREZ MD 10/23/20 Azithromycin (AZITHROMYCIN TABLET) 250 Mg Tablet, 250 MG PO DAILY for bronchitis for 7 Days, #7 TAB Prov:CORWIN FLOREZ MD 10/23/20 Fluticasone Propionate (FLUTICASONE PROPIONATE NASAL SPRAY) 16 Gm [employer].susp, 2 SPRAY NS DAILY for nasal congestuon for 30 Days, SPRAY Prov:SUE MARINO MD 07/10/19 Cetirizine Hcl (CETIRIZINE HCL) 10 Mg Tablet, 10 MG PO DAILY for OTC, #30 TAB Prov:SUE MARINO MD 07/10/19 Ferrous Sulfate (FERROUS SULFATE) 300 Mg/5 Ml Liquid, 300 MG PO BIDWMEALS for iron deficiency for 30 Days, #60 LIQUID Prov:RIFFEZEB Ibrahim MD 08/29/18 Potassium Chloride (POTASSIUM CHLORIDE ) 10 Meq Capsule.er, 1 CAP PO DAILY, #30 CAP 5 Refills Prov:CIERRA ORTEGA MD 04/26/15 Reported Medications Oxybutynin Chloride (OXYBUTYNIN CHLORIDE ER) 10 Mg Tab.er.24, 1 TAB PO DAILY for BLADDER 10/22/20 Rosuvastatin Calcium (Rosuvastatin Calcium) 5 Mg Tablet, 5 MG PO HS for HLD 10/22/20 Alprazolam (XANAX) 0.25 Mg Tablet, 0.25 MG PO TID PRN for ANXIETY / AGITATION, TAB 0 Refills 03/24/19 Pantoprazole Sodium (PROTONIX) 20 Mg Tablet.dr, 40 MG PO DAILY for gerd, TAB 01/13/19 Sertraline Hcl (ZOLOFT) 50 Mg Tablet, 1 TAB PO HS for anxiety, #30 TAB 2 Refills 05/10/18 Clopidogrel Bisulfate (CLOPIDOGREL) 75 Mg Tablet, 1 TAB PO DAILY, #90 TAB 1 Re fill 02/25/18 Montelukast Sodium (SINGULAIR TABLET ) 10 Mg Tablet, 1 TAB PO HS for COPD, #90 TAB 1 Refill 04/27/14 Furosemide (LASIX) 20 Mg Tablet, 1 TAB PO DAILY16 for fluid retention, #90 TAB 1 Refill 04/27/14 Budesonide/Formoterol Fumarate (SYMBICORT 160-4.5 MCG INHALER) 10.2 Gm Hfa.aer.ad, 10.2 GM IH BID 07/28/13 Albuterol Sulfate (ALBUTEROL SULFATE HFA INHALER) 8.5 Gm Hfa.aer.ad, 8.5 GM IH PRN 07/28/13 Ipratropium/Albuterol Sulfate (DUONEB 0.5 MG-3 MG/3 ML SOLN) 3 Ml Ampul.neb, 3 ML IH QID 07/28/13 Aspirin (ASPIR 81) 81 Mg Tablet.dr, 81 MG PO DAILY 07/28/13 Discontinued Reported Medications Diclofenac Sodium (DICLOFENAC SODIUM) 75 Mg Tablet.dr, 1 TAB PO BID for INFLAMMATION 10/22/20 Estradiol (ESTRADIOL) 0.5 Mg Tablet, 0.5 MG PO DAILY for HRT 10/22/20 Discontinued Scripts Tizanidine Hcl (TIZANIDINE HCL) 4 Mg Tablet, 2 MG PO PRN Q8HRS PRN for MUSCLE SPASMS, #30 TAB Prov:SUE MARINO MD 07/10/19 [guaiFENesin/CODEINE 100mg/10mg] 5 ML LIQUID No Conflict Check, 5 ML PO PRN Q6HRS PRN for COUGH Prov:GUZMAN GALLEGOS MD 03/28/19 CORWIN FLOREZ MD October 23, 2020 14:36
[2020-10-23 15:00] VITALS: BP 143/55
[2020-10-23] MEDS: guaiFENesin/CODEINE 100mg/10mg 5 ML LIQUID PO PRN ×2 (15:00→20:38)
[2020-10-23] MEDS: ACETAMINOPHEN 325 MG TABLET. PO PRN ×2 (15:02→20:38)
--- NOTE | 2020-10-23 15:03 | NUR ---
SW following. Discussed with RN, pt from home, uses oxygen at home, cardiac diet, COVID-19 negative. Discharge order for home with self care. SW met with pt, pt does not want home health at this time. RN notified. Pt denied any further SW needs. SW will continue to follow.
[2020-10-23] MEDS: LISINOPRIL 5 MG TABLET. PO SCH ×2 (16:23→20:37)
[2020-10-23 19:00] VITALS: BP 132/83
[2020-10-23] MEDS: SERTRALINE 50 MG TABLET. PO SCH (20:37)
[2020-10-23] MEDS: ENOXAPARIN 40 MG/0.4 ML SYRINGE. SQ SCH (20:38)
[2020-10-23 22:58] VITALS: BP 119/74
[2020-10-24] MEDS: methylPREDNISolone SOD SUCC PF 40 MG/ML VIAL. IV SCH ×3 (00:31→12:18)
[2020-10-24 02:47] VITALS: BP 117/75
[2020-10-24 05:02] LABS: BASO % 0 % (0-3); EOS % 0 % (0-3); HEMATOCRIT 37.1 % (36.0-47.0); HEMOGLOBIN 12.1 g/dL (12.0-15.5); LYMPH # 0.9 x10^3/uL (1.0-4.8); LYMPH % 9 % (24-48); MEAN CORPUSCULAR HEMOGLOBIN 30 pg (25-35); MEAN CORPUSCULAR HGB CONC 33 g/dL (31-37); MEAN CORPUSCULAR VOLUME 91 fL (79-100); MONO # 0.6 x10^3/uL (0.0-1.1); MONO % 6 % (0-9); NEUT # 8.6 x10^3/uL (1.8-7.7); NEUT % 85 % (31-73); PLATELET COUNT 240 x10^3/uL (140-400); RED BLOOD COUNT 4.06 x10^6/uL (3.50-5.40); RED CELL DISTRIBUTION WIDTH 14.3 % (11.5-14.5); WHITE BLOOD COUNT 10.1 x10^3/uL (4.0-11.0)
[2020-10-24 06:03] LABS: CALCIUM 8.5 mg/dL (8.5-10.1); CREATININE 0.7 mg/dL (0.6-1.0); GFR 102.6; POTASSIUM 3.8 mmol/L (3.5-5.1)
[2020-10-24 07:00] VITALS: BP 130/84
[2020-10-24] MEDS: BUDESONIDE 0.5 MG/2 ML NEBU. NEB SCH (07:38)
[2020-10-24] MEDS: ASPIRIN ENTERIC COATED 81 MG TABLET.DR. PO SCH (08:58)
[2020-10-24] MEDS: AZITHROMYCIN 250 MG TABLET. PO SCH (08:58)
[2020-10-24] MEDS: LISINOPRIL 5 MG TABLET. PO SCH (08:58)
[2020-10-24] MEDS: IPRATROPIUM/ALBUTEROL 20/100mcg/INH INHALER. INH SCH (08:58)
[2020-10-24] MEDS: ALPRAZolam 0.25 MG TABLET PO SCH (09:00)
[2020-10-24] MEDS: LACTOBACILLUS RHAMNOSUS GG 1 CAPSULE. PO SCH (09:00)
[2020-10-24] MEDS: CLOPIDOGREL BISULFATE 75 MG TABLET PO SCH (09:00)
[2020-10-24] MEDS: amLODIPine BESYLATE 10 MG TABLET PO SCH (09:03)
[2020-10-24] MEDS: FLUTICASONE/VILANTEROL 100/25 INHALER. INH SCH (09:06)
--- NOTE | 2020-10-24 09:12 | PDOC ---
PULMONARY PROGRESS NOTES DATE: 10/24/20 TIME: 09:11 Subjective Patient is up to the chair today, now on nasal cannula oxygen currently at her baseline No increased shortness of breath or cough Vitals Vital Signs Date Time Temp Pulse Resp B/P (MAP) Pulse Ox O2 Delivery O2 Flow Rate FiO2 10/24/20 09:03 75 130/84 10/24/20 07:39 96 Nasal Cannula 3.0 10/24/20 02:47 98.2 18 98.2 ROS: No Nausea, No Chest Pain, No Abdominal Pain, No Increase Cough General: Alert, Oriented X4 Lungs: Clear Cardiovascular: S1, S2 Abdomen: Soft, Non-tender Extremities: Other Labs Laboratory Tests Test 10/23/20 08:35 10/24/20 04:15 White Blood Count 11.5 x10^3/uL (4.0-11.0) 10.1 x10^3/uL (4.0-11.0) Red Blood Count 4.31 x10^6/uL (3.50-5.40) 4.06 x10^6/uL (3.50-5.40) Hemoglobin 12.9 g/dL (12.0-15.5) 12.1 g/dL (12.0-15.5) Hematocrit 39.5 % (36.0-47.0) 37.1 % (36.0-47.0) Mean Corpuscular Volume 92 fL (79-100) 91 fL (79-100) Mean Corpuscular Hemoglobin 30 pg (25-35) 30 pg (25-35) Mean Corpuscular Hemoglobin Concent 33 g/dL (31-37) 33 g/dL (31-37) Red Cell Distribution Width 14.0 % (11.5-14.5) 14.3 % (11.5-14.5) Platelet Count 255 x10^3/uL (140-400) 240 x10^3/uL (140-400) Neutrophils (%) (Auto) 90 % (31-73) 85 % (31-73) Lymphocytes (%) (Auto) 8 % (24-48) 9 % (24-48) Monocytes (%) (Auto) 2 % (0-9) 6 % (0-9) Eosinophils (%) (Auto) 0 % (0-3) 0 % (0-3) Basophils (%) (Auto) 0 % (0-3) 0 % (0-3) Neutrophils # (Auto) 10.3 x10^3/uL (1.8-7.7) 8.6 x10^3/uL (1.8-7.7) Lymphocytes # (Auto) 0.9 x10^3/uL (1.0-4.8) 0.9 x10^3/uL (1.0-4.8) Monocytes # (Auto) 0.3 x10^3/uL (0.0-1.1) 0.6 x10^3/uL (0.0-1.1) Eosinophils # (Auto) 0.0 x10^3/uL (0.0-0.7) 0.0 x10^3/uL (0.0-0.7) Basophils # (Auto) 0.0 x10^3/uL (0.0-0.2) 0.0 x10^3/uL (0.0-0.2) Segmented Neutrophils % 88 % (35-66) Band Neutrophils % 3 % (0-9) Lymphocytes % 6 % (24-48) Atypical Lymphocytes % (Manual) 1 % (0-0) Monocytes % 2 % (0-10) Platelet Estimate Adequate (ADEQUATE) Sodium Level 144 mmol/L (136-145) 146 mmol/L (136-145) Potassium Level 4.0 mmol/L (3.5-5.1) 3.8 mmol/L (3.5-5.1) Chloride Level 101 mmol/L (98-107) 106 mmol/L (98-107) Carbon Dioxide Level 37 mmol/L (21-32) 37 mmol/L (21-32) Anion Gap 6 (6-14) 3 (6-14) Blood Urea Nitrogen 16 mg/dL (7-20) 18 mg/dL (7-20) Creatinine 0.8 mg/dL (0.6-1.0) 0.7 mg/dL (0.6-1.0) Estimated GFR (Cockcroft-Gault) 87.9 102.6 Glucose Level 155 mg/dL (70-99) 122 mg/dL (70-99) Calcium Level 8.9 mg/dL (8.5-10.1) 8.5 mg/dL (8.5-10.1) Laboratory Tests Test 10/24/20 04:15 White Blood Count 10.1 x10^3/uL (4.0-11.0) Red Blood Count 4.06 x10^6/uL (3.50-5.40) Hemoglobin 12.1 g/dL (12.0-15.5) Hematocrit 37.1 % (36.0-47.0) Mean Corpuscular Volume 91 fL (79-100) Mean Corpuscular Hemoglobin 30 pg (25-35) Mean Corpuscular Hemoglobin Concent 33 g/dL (31-37) Red Cell Distribution Width 14.3 % (11.5-14.5) Platelet Count 240 x10^3/uL (140-400) Neutrophils (%) (Auto) 85 % (31-73) Lymphocytes (%) (Auto) 9 % (24-48) Monocytes (%) (Auto) 6 % (0-9) Eosinophils (%) (Auto) 0 % (0-3) Basophils (%) (Auto) 0 % (0-3) Neutrophils # (Auto) 8.6 x10^3/uL (1.8-7.7) Lymphocytes # (Auto) 0.9 x10^3/uL (1.0-4.8) Monocytes # (Auto) 0.6 x10^3/uL (0.0-1.1) Eosinophils # (Auto) 0.0 x10^3/uL (0.0-0.7) Basophils # (Auto) 0.0 x10^3/uL (0.0-0.2) Sodium Level 146 mmol/L (136-145) Potassium Level 3.8 mmol/L (3.5-5.1) Chloride Level 106 mmol/L (98-107) Carbon Dioxide Level 37 mmol/L (21-32) Anion Gap 3 (6-14) Blood Urea Nitrogen 18 mg/dL (7-20) Creatinine 0.7 mg/dL (0.6-1.0) Estimated GFR (Cockcroft-Gault) 102.6 Glucose Level 122 mg/dL (70-99) Calcium Level 8.5 mg/dL (8.5-10.1) Medications Active Scripts Medications Dose Route/Sig Max Daily Dose Days Date Category Diclofenac Sodium 75 Mg Tablet.dr 1 Tab PO BID 10/22/20 Reported Oxybutynin Chloride Er (Oxybutynin Chloride) 10 Mg Tab.er.24 1 Tab PO DAILY 10/22/20 Reported Estradiol 0.5 Mg Tablet 0.5 Mg PO DAILY 10/22/20 Reported Rosuvastatin Calcium 5 Mg Tablet 5 Mg PO HS 10/22/20 Reported Fluticasone Propionate Nasal [place] (Fluticasone Propionate) 16 Gm [place].susp 2 [place] NS DAILY 30 07/10/19 Rx Tizanidine Hcl 4 Mg Tablet 2 Mg PO PRN Q8HRS PRN 07/10/19 Rx Cetirizine Hcl 10 Mg Tablet 10 Mg PO DAILY 07/10/19 Rx [guaiFENesin/CODEINE 100mg/10mg] 5 ML Liquid 5 Ml PO PRN Q6HRS PRN 03/28/19 Rx Xanax (Alprazolam) 0.25 Mg Tablet 0.25 Mg PO TID PRN 03/24/19 Reported Protonix (Pantoprazole Sodium) 20 Mg Tablet. 40 Mg PO DAILY 01/13/19 Reported Ferrous Sulfate 300 Mg/5 Ml Liquid 300 Mg PO BIDWMEALS 30 08/29/18 Rx Zoloft (Sertraline Hcl) 50 Mg Tablet 1 Tab PO HS 05/10/18 Reported Clopidogrel (Clopidogrel Bisulfate) 75 Mg Tablet 1 Tab PO DAILY 02/25/18 Reported Potassium Chloride (Potassium Chloride) 10 Meq Capsule.er 1 Cap PO DAILY 04/26/15 Rx Singulair Tablet (Montelukast Sodium) 10 Mg Tablet 1 Tab PO HS 04/27/14 Reported Lasix (Furosemide) 20 Mg Tablet 1 Tab PO DAILY16 04/27/14 Reported Symbicort 160-4.5 Mcg Inhaler (Budesonide/Formoterol Fumarate) 10.2 Gm Hfa.aer.ad 10.2 Gm IH BID 07/28/13 Reported Albuterol Sulfate Hfa Inhaler (Albuterol Sulfate) 8.5 Gm Hfa.aer.ad 8.5 Gm IH PRN 07/28/13 Reported Duoneb 0.5 Mg-3 Mg/3 Ml Soln (Ipratropium/Albuterol Sulfate) 3 Ml Ampul.neb 3 Ml IH QID 07/28/13 Reported Aspir 81 (Aspirin) 81 Mg Tablet.dr 81 Mg PO DAILY 07/28/[address] IMPRESSION: 1. No convincing pulmonary embolism. Evaluation of the distal pulmonary arteries is limited due to respiratory motion. 2. Suspected pulmonary artery hypertension. 3. Bilateral lower lobe and posterior dependent atelectasis. No consolidated infiltrate is seen. 4. Mild central bronchial wall thickening. This can be seen as a sequela of bronchitis. 5. Prominent right hilar lymph nodes, likely physiologic or reactive in etiology. Impression . IMPRESSION: 1. Acute exacerbation of chronic obstructive pulmonary disease, triggered by acute bronchitis.--resolved 2. No definite pneumonia seen on the CT chest. 3. Abnormal CT chest with some mild basal atelectasis and some pleural thickening. No definite consolidation seen and no definite pulmonary embolism seen. 4. The patient with chronic hypoxic respiratory failure secondary to severe chronic obstructive pulmonary disease. Oxygen requirement has not changed. Plan . RECOMMENDATIONS: Continue supplemental oxygen to keep oxygen saturations greater than 92% Continue home Breo Pulmicort/DuoNeb Continue antibiotics currently on azithromycin Continue steroids with slow taper hypertension per PCP/ improved DVT/GI prophylaxis Discussed with WATSON Altamirano to discharge home from our standpoint TRACEE PIZARRO MD October 24, 2020 09:12
--- NOTE | 2020-10-24 10:23 | PDOC ---
PROGRESS NOTES Date of Service: DATE: 10/24/20 TIME: 10:23 Chief Complaint Chief Complaint Shortness of Air History of Present Illness History of Present Illness 10/24/2020 on 3 liters nc BP BETTER TODAY Patient was seen and examined today. She shared no new concerns or questions. Discussed care with RN and case management. Chart and specialist notes reviewed. Patient is a 60-year-old female past medical history COPD on 2 L at baseline who presents to the ED with complaints of worsening shortness of breath over the past 2 weeks. Her symptoms are worse with ambulation. She states that her symptoms have been ongoing for the past 2 months, and seen by her PCP and treated with doxycycline and prednisone with brief improvement. She reports associated cough productive of yellow sputum. She lives at home with her and denies any sick contacts, fever, nausea, vomiting, or diarrhea. Discussed with ER provider, recommend obtaining CTA. Will admit patient for further medical management. Continue supplemental oxygen to keep oxygen saturations greater than 92% Continue home Breo As needed bronchodilators Pulmicort/DuoNeb Continue antibiotics currently on azithromycin d/c planning 35 min 10/22/2020 Patient was seen and examined today. She shared no new concerns or questions. D iscussed care with RN and case management. Chart and specialist notes reviewed. Patient is a 60-year-old female past medical history COPD on 2 L at baseline who presents to the ED with complaints of worsening shortness of breath over the past 2 weeks. Her symptoms are worse with ambulation. She states that her symptoms have been ongoing for the past 2 months, and seen by her PCP and treated with doxycycline and prednisone with brief improvement. She reports associated cough productive of yellow sputum. She lives at home with her and denies any sick contacts, fever, nausea, vomiting, or diarrhea. Discussed with ER provider, recommend obtaining CTA. Will admit patient for further medical management. Vitals Vitals Vital Signs Date Time Temp Pulse Resp B/P (MAP) Pulse Ox O2 Delivery O2 Flow Rate FiO2 10/24/20 09:03 75 130/84 10/24/20 07:39 96 Nasal Cannula 3.0 10/24/20 07:00 98.4 18 98.4 Physical Exam General: Alert, Oriented X3, Cooperative, No acute distress Heart: Regular rate, No murmurs Lungs: Clear Abdomen: Normal bowel sounds, No tenderness Extremities: No clubbing, No cyanosis Skin: No rashes, No significant lesion Labs LABS Laboratory Tests Test 10/24/20 04:15 White Blood Count 10.1 x10^3/uL (4.0-11.0) Red Blood Count 4.06 x10^6/uL (3.50-5.40) Hemoglobin 12.1 g/dL (12.0-15.5) Hematocrit 37.1 % (36.0-47.0) Mean Corpuscular Volume 91 fL (79-100) Mean Corpuscular Hemoglobin 30 pg (25-35) Mean Corpuscular Hemoglobin Concent 33 g/dL (31-37) Red Cell Distribution Width 14.3 % (11.5-14.5) Platelet Count 240 x10^3/uL (140-400) Neutrophils (%) (Auto) 85 % (31-73) Lymphocytes (%) (Auto) 9 % (24-48) Monocytes (%) (Auto) 6 % (0-9) Eosinophils (%) (Auto) 0 % (0-3) Basophils (%) (Auto) 0 % (0-3) Neutrophils # (Auto) 8.6 x10^3/uL (1.8-7.7) Lymphocytes # (Auto) 0.9 x10^3/uL (1.0-4.8) Monocytes # (Auto) 0.6 x10^3/uL (0.0-1.1) Eosinophils # (Auto) 0.0 x10^3/uL (0.0-0.7) Basophils # (Auto) 0.0 x10^3/uL (0.0-0.2) Sodium Level 146 mmol/L (136-145) Potassium Level 3.8 mmol/L (3.5-5.1) Chloride Level 106 mmol/L (98-107) Carbon Dioxide Level 37 mmol/L (21-32) Anion Gap 3 (6-14) Blood Urea Nitrogen 18 mg/dL (7-20) Creatinine 0.7 mg/dL (0.6-1.0) Estimated GFR (Cockcroft-Gault) 102.6 Glucose Level 122 mg/dL (70-99) Calcium Level 8.5 mg/dL (8.5-10.1) Assessment and Plan Assessmemt and Plan Problems Medical Problems: (1) Hypoxia Status: Acute (2) Shortness of breath Status: Acute Comment Review of Relevant I have reviewed the following items paulette (where applicable) has been applied. Labs Laboratory Tests Test 10/23/20 08:35 10/24/20 04:15 White Blood Count 11.5 x10^3/uL (4.0-11.0) 10.1 x10^3/uL (4.0-11.0) Red Blood Count 4.31 x10^6/uL (3.50-5.40) 4.06 x10^6/uL (3.50-5.40) Hemoglobin 12.9 g/dL (12.0-15.5) 12.1 g/dL (12.0-15.5) Hematocrit 39.5 % (36.0-47.0) 37.1 % (36.0-47.0) Mean Corpuscular Volume 92 fL (79-100) 91 fL (79-100) Mean Corpuscular Hemoglobin 30 pg (25-35) 30 pg (25-35) Mean Corpuscular Hemoglobin Concent 33 g/dL (31-37) 33 g/dL (31-37) Red Cell Distribution Width 14.0 % (11.5-14.5) 14.3 % (11.5-14.5) Platelet Count 255 x10^3/uL (140-400) 240 x10^3/uL (140-400) Neutrophils (%) (Auto) 90 % (31-73) 85 % (31-73) Lymphocytes (%) (Auto) 8 % (24-48) 9 % (24-48) Monocytes (%) (Auto) 2 % (0-9) 6 % (0-9) Eosinophils (%) (Auto) 0 % (0-3) 0 % (0-3) Basophils (%) (Auto) 0 % (0-3) 0 % (0-3) Neutrophils # (Auto) 10.3 x10^3/uL (1.8-7.7) 8.6 x10^3/uL (1.8-7.7) Lymphocytes # (Auto) 0.9 x10^3/uL (1.0-4.8) 0.9 x10^3/uL (1.0-4.8) Monocytes # (Auto) 0.3 x10^3/uL (0.0-1.1) 0.6 x10^3/uL (0.0-1.1) Eosinophils # (Auto) 0.0 x10^3/uL (0.0-0.7) 0.0 x10^3/uL (0.0-0.7) Basophils # (Auto) 0.0 x10^3/uL (0.0-0.2) 0.0 x10^3/uL (0.0-0.2) Segmented Neutrophils % 88 % (35-66) Band Neutrophils % 3 % (0-9) Lymphocytes % 6 % (24-48) Atypical Lymphocytes % (Manual) 1 % (0-0) Monocytes % 2 % (0-10) Platelet Estimate Adequate (ADEQUATE) Sodium Level 144 mmol/L (136-145) 146 mmol/L (136-145) Potassium Level 4.0 mmol/L (3.5-5.1) 3.8 mmol/L (3.5-5.1) Chloride Level 101 mmol/L (98-107) 106 mmol/L (98-107) Carbon Dioxide Level 37 mmol/L (21-32) 37 mmol/L (21-32) Anion Gap 6 (6-14) 3 (6-14) Blood Urea Nitrogen 16 mg/dL (7-20) 18 mg/dL (7-20) Creatinine 0.8 mg/dL (0.6-1.0) 0.7 mg/dL (0.6-1.0) Estimated GFR (Cockcroft-Gault) 87.9 102.6 Glucose Level 155 mg/dL (70-99) 122 mg/dL (70-99) Calcium Level 8.9 mg/dL (8.5-10.1) 8.5 mg/dL (8.5-10.1) Laboratory Tests Test 10/24/20 04:15 White Blood Count 10.1 x10^3/uL (4.0-11.0) Red Blood Count 4.06 x10^6/uL (3.50-5.40) Hemoglobin 12.1 g/dL (12.0-15.5) Hematocrit 37.1 % (36.0-47.0) Mean Corpuscular Volume 91 fL (79-100) Mean Corpuscular Hemoglobin 30 pg (25-35) Mean Corpuscular Hemoglobin Concent 33 g/dL (31-37) Red Cell Distribution Width 14.3 % (11.5-14.5) Platelet Count 240 x10^3/uL (140-400) Neutrophils (%) (Auto) 85 % (31-73) Lymphocytes (%) (Auto) 9 % (24-48) Monocytes (%) (Auto) 6 % (0-9) Eosinophils (%) (Auto) 0 % (0-3) Basophils (%) (Auto) 0 % (0-3) Neutrophils # (Auto) 8.6 x10^3/uL (1.8-7.7) Lymphocytes # (Auto) 0.9 x10^3/uL (1.0-4.8) Monocytes # (Auto) 0.6 x10^3/uL (0.0-1.1) Eosinophils # (Auto) 0.0 x10^3/uL (0.0-0.7) Basophils # (Auto) 0.0 x10^3/uL (0.0-0.2) Sodium Level 146 mmol/L (136-145) Potassium Level 3.8 mmol/L (3.5-5.1) Chloride Level 106 mmol/L (98-107) Carbon Dioxide Level 37 mmol/L (21-32) Anion Gap 3 (6-14) Blood Urea Nitrogen 18 mg/dL (7-20) Creatinine 0.7 mg/dL (0.6-1.0) Estimated GFR (Cockcroft-Gault) 102.6 Glucose Level 122 mg/dL (70-99) Calcium Level 8.5 mg/dL (8.5-10.1) Microbiology 10/21/20 Urine Culture - Final, Complete 10/21/20 Antimicrobic Susceptibility - Final, Complete Medications Current Medications Iohexol (Omnipaque 350 Mg/ml) 90 ml 1X ONCE IV ; Start 10/21/20 at 17:45; Stop 10/21/20 at 17:46; Status DC Info (CONTRAST GIVEN -- Rx MONITORING) 1 each PRN DAILY PRN MC SEE COMMENTS; Start 10/21/20 at 17:45; Stop 10/23/20 at 17:44; Status DC Alprazolam (Xanax) 0.25 mg BID PO Last administered on 10/24/20 09:00; Start 10/21/20 at 21:00 Aspirin (Ecotrin) 81 mg DAILY PO Last administered on 10/24/20 08:58; Start 10/22/20 at 09:00 Clopidogrel Bisulfate (Plavix) 75 mg DAILY PO Last administered on 10/24/20 09:00; Start 10/22/20 at 09:00 Sertraline HCl (Zoloft) 50 mg HS PO Last administered on 10/23/20at 20:37; Start 10/21/20 at 21:00 Fluticasone/ Vilanterol (Breo Ellipta 100-25 Mcg) 1 puff DAILY INH Last administered on 10/24/20 09:06; Start 10/21/20 at 21:00 Methylprednisolone Sodium Succinate (SOLU-Medrol 40MG VIAL) 80 mg Q6HRS IV Last administered on 10/24/20 05:52; Start 10/21/20 at 18:00 Azithromycin (Zithromax) 500 mg 1X ONCE PO Last administered on 10/21/20at 18:35; Start 10/21/20 at 18:00; Stop 10/21/20 at 18:01; Status DC Azithromycin (Zithromax) 250 mg DAILY PO Last administered on 10/24/20at 08:58; Start 10/22/20 at 09:00; Stop 10/26/20 at 08:59 Guaifenesin/ Codeine Phosphate (Robitussin Ac) 5 ml PRN Q6HRS PRN PO COUGH Last administered on 10/23/20at 20:38; Start 10/21/20 at 18:00 Ondansetron HCl (Zofran) 4 mg PRN Q6HRS PRN IVP NAUSEA/VOMITING; Start 10/21/20 at 18:00 Al Hydroxide/Mg Hydroxide (Mylanta Plus Xs) 30 ml PRN Q3HRS PRN PO HEARTBURN / GAS; Start 10/21/20 at 18:00 Calcium Carbonate/ Glycine (Tums) 500 mg PRN Q3HRS PRN PO UPSET STOMACH; Start 10/21/20 at 18:00 Zolpidem Tartrate (Ambien) 5 mg PRN QHS PRN PO INSOMNIA, MAY REPEAT IN 1HR; Start 10/21/20 at 18:00 Acetaminophen/ Hydrocodone Bitart (Lortab 5/325) 1 tab PRN Q4HRS PRN PO MODERATE-SEVERE PAIN; Start 10/21/20 at 18:00 Acetaminophen (Tylenol) 650 mg PRN Q6HRS PRN PO Headaches, Temp > 101.5F Last administered on 10/23/20at 15:02; Start 10/21/20 at 18:00 Magnesium Hydroxide (Milk Of Magnesia) 2,400 mg PRN Q12HR PRN PO CONSTIPATION; Start 10/21/20 at 18:00 Bisacodyl (Dulcolax Supp) 10 mg PRN DAILY PRN GA CONSTIPATION- 2ND CHOICE; Start 10/21/20 at 18:00 Enoxaparin Sodium (Lovenox 40mg Syringe) 40 mg Q24H SQ Last administered on 10/23/20at 20:38; Start 10/21/20 at 21:00 Hydralazine HCl (Apresoline Inj) 10 mg PRN Q2HRS PRN IVP HYPERTENSION; Start 10/21/20 at 18:15 Albuterol/ Ipratropium (Duoneb) 3 ml RTQID NEB ; Start 10/22/20 at 08:30; Stop 10/22/20 at 09:24; Status DC Budesonide (Pulmicort) 0.5 mg RTBID NEB Last administered on 10/24/20at 07:38; Start 10/22/20 at 08:30 Albuterol/ Ipratropium (Combivent Respimat 20-100 Mcg) 2 puff RTBID INH Last administered on 10/24/20at 08:58; Start 10/22/20 at 09:30 Furosemide (Lasix) 20 mg DAILY16 PO Last administered on 10/23/20at 10:37; Start 10/22/20 at 16:00 Amlodipine Besylate (Norvasc) 10 mg DAILY PO Last administered on 10/24/20 09:03; Start 10/23/20 at 09:00 Lactobacillus Rhamnosus (Culturelle) 1 cap BID PO Last administered on 10/24/20at 09:00; Start 10/22/20 at 21:00 Lisinopril (Prinivil) 5 mg BID PO Last administered on 5/13/21at 08:58; Start 10/23/20 at 16:00 Active Scripts Active Prednisone 20 Mg Tablet 1.5 Tab PO DAILY 7 Days Culturelle (Lactobacillus Rhamnosus Gg) 1 Each Cap.sprink 1 Cap PO BID 30 Days Mag-Al Plus Xs Suspension (Mag Hydrox/Al Hydrox/Simeth) 30 Ml Oral.susp 30 Ml PO PRN Q3HRS PRN 30 Days Breo Ellipta 100-25 Mcg INH (Fluticasone/Vilanterol) 1 Each Blst.w.dev 1 Puff INH DAILY 30 Days Acetaminophen 325 Mg Tablet 650 Mg PO PRN Q6HRS PRN 30 Days Amlodipine Besylate 10 Mg Tablet 10 Mg PO DAILY 30 Days Azithromycin Tablet (Azithromycin) 250 Mg Tablet 250 Mg PO DAILY 7 Days Fluticasone Propionate Nasal [place] (Fluticasone Propionate) 16 Gm [place].susp 2 [place] NS DAILY 30 Days Cetirizine Hcl 10 Mg Tablet 10 Mg PO DAILY Ferrous Sulfate 300 Mg/5 Ml Liquid 300 Mg PO BIDWMEALS 30 Days Potassium Chloride (Potassium Chloride) 10 Meq Capsule.er 1 Cap PO DAILY Reported Oxybutynin Chloride Er (Oxybutynin Chloride) 10 Mg Tab.er.24 1 Tab PO DAILY Rosuvastatin Calcium 5 Mg Tablet 5 Mg PO HS Xanax (Alprazolam) 0.25 Mg Tablet 0.25 Mg PO TID PRN Protonix (Pantoprazole Sodium) 20 Mg Tablet.dr 40 Mg PO DAILY Zoloft (Sertraline Hcl) 50 Mg Tablet 1 Tab PO HS Clopidogrel (Clopidogrel Bisulfate) 75 Mg Tablet 1 Tab PO DAILY Singulair Tablet (Montelukast Sodium) 10 Mg Tablet 1 Tab PO HS Lasix (Furosemide) 20 Mg Tablet 1 Tab PO DAILY16 Symbicort 160-4.5 Mcg Inhaler (Budesonide/Formoterol Fumarate) 10.2 Gm Hfa.aer.ad 10.2 Gm IH BID Albuterol Sulfate Hfa Inhaler (Albuterol Sulfate) 8.5 Gm Hfa.aer.ad 8.5 Gm IH PRN Duoneb 0.5 Mg-3 Mg/3 Ml Soln (Ipratropium/Albuterol Sulfate) 3 Ml Ampul.neb 3 Ml IH QID Aspir 81 (Aspirin) 81 Mg Tablet.dr 81 Mg PO DAILY Vitals/I & O Vital Sign - Last 24 Hours 10/23/20 10/23/20 10/23/20 10/23/20 10:37 11:00 15:00 16:23 Temp 98.4 98.2 98.4 98.2 Pulse 79 89 78 89 Resp 18 18 B/P (MAP) 180/85 160/92 (114) 143/55 (84) 160/92 Pulse Ox 95 95 O2 Delivery Nasal Cannula Nasal Cannula O2 Flow Rate 3.0 3.0 10/23/20 10/23/20 10/23/20 10/23/20 19:00 20:00 20:04 20:37 Temp 99.4 99.4 Pulse 81 81 Resp 20 B/P (MAP) 132/83 (99) 132/83 Pulse Ox 94 96 O2 Delivery Nasal Cannula Nasal Cannula Nasal Cannula O2 Flow Rate 3.0 3.0 3.0 10/23/20 10/24/20 10/24/20 10/24/20 22:58 02:47 07:00 07:39 Temp 98.6 98.2 98.4 98.6 98.2 98.4 Pulse 65 66 64 Resp 18 18 18 B/P (MAP) 119/74 (89) 117/75 (89) 130/84 (99) Pulse Ox 95 97 95 96 O2 Delivery Nasal Cannula Nasal Cannula Nasal Cannula Nasal Cannula O2 Flow Rate 3.0 3.0 3.0 3.0 10/24/20 10/24/20 08:58 09:03 Pulse 79 75 B/P (MAP) 130/84 130/84 Intake and Output 10/23/20 10/23/20 10/24/20 15:00 23:00 07:00 Intake Total 600 ml 600 ml 120 ml Balance 600 ml 600 ml 120 ml Justicifation of Admission Dx: Justifications for Admission: Justification of Admission Dx: Yes CORWIN FLOREZ MD October 24, 2020 10:23
[2020-10-24 11:00] VITALS: BP 115/75
[2020-10-24] MEDS ORDERED: LISI-517 PO (11:31)
--- NOTE | 2020-10-24 11:32 | SNU/HH DC ---
DISCHARGE WITH HOME HEALTH DISCHARGE INFORMATION: Discharge Date: October 24, 2020 Final Diagnosis: Problems Medical Problems: (1) Hypoxia Status: Acute (2) Shortness of breath Status: Acute Condition on Discharge: Stable CODE STATUS: Code Status: Full HOME HEALTH: Face to Face: I certify this patient is under my care and that I, or a nurse practitioner or physician's railway yard assistant working with me, had a face to face encounter that meets the physician face to face encounter requirements with this patient on []. Fdc For: Admin/Educate Injections, Assess & Educate Safety, Assess/Skilled Observatio, Medication Management RN For Eval/Treatment: Yes Physical Therapy For: Evalulation/Treatment Occupational Therapy For: Evaluation/Treatment Speech Language Pathology For: Evaluation/Treatment Home Health Aide For: Self-care HOSIERY PAIRER For: Community Resources Pt Meets Homebound Status: Fatigue w/ amb. POST DISCHARGE ORDERS: Activity Instructions for Disc: Activity as tolerated Weight Bearing Status after Di: No restrictions DIET AFTER DISCHARGE: Cardiac Wound/Incision Care: No wound care needed CHECKS AFTER DISCHARGE: Checks after discharge: Check blood press - daily FOLLOW-UP: PCP to follow Home Health: PCP IN ONE WEEK Follow up with: DR PIZARRO 2 WEEKS TREATMENT/EQUIPMENT ORDERS: Adaptive Equipment Issued: None, Front wheeled walker Discharge Respiratory Equipmen: Oxygen, Nebulizer CERTIFICATION STATEMENT: Certification Statement: Certification Statement: Based on the above finding, I certify that this patient is confined to the home and needs intermittent penitentiary care, physical therapy and/or speech therapy, or continues to need occupational therapy.~ This patient is under my care, and I have initiated the establishment of the plan of care.~ This patient will be followed by myself or a community physician who will periodically review the plan of care. Home Meds Active Scripts Lisinopril (LISINOPRIL) 5 Mg Tablet, 5 MG PO BID for BLOOD PRESSURE for 30 Days, #60 TAB Prov:CORWIN FLOREZ MD 10/24/20 Prednisone (PREDNISONE) 20 Mg Tablet, 1.5 TAB PO DAILY for copd for 7 Days, #11 TAB Prov:CORWIN FLOREZ MD 10/23/20 Lactobacillus Rhamnosus Gg (CULTURELLE) 1 Each Cap.sprink, 1 CAP PO BID for supplement for 30 Days, #60 CAP Prov:CORWIN FLOREZ MD 10/23/20 Mag Hydrox/Al Hydrox/Simeth (MAG-AL PLUS XS SUSPENSION) 30 Ml Oral.susp, 30 ML PO PRN Q3HRS PRN for HEARTBURN / GAS for 30 Days, #90 MISC Prov:CORWIN FLOREZ MD 10/23/20 Fluticasone/Vilanterol (Breo Ellipta 100-25 Mcg INH) 1 Each Blst.w.dev, 1 PUFF INH DAILY for copd for 30 Days, #1 EACH Prov:CORWIN FLOREZ MD 10/23/20 Acetaminophen (ACETAMINOPHEN) 325 Mg Tablet, 650 MG PO PRN Q6HRS PRN for Headaches, Temp > 101.5F for 30 Days, #100 TAB Prov:CORWIN FLOREZ MD 10/23/20 Amlodipine Besylate (AMLODIPINE BESYLATE) 10 Mg Tablet, 10 MG PO DAILY for blood pressure for 30 Days, #30 TAB Prov:CORWIN FLOREZ MD 10/23/20 Azithromycin (AZITHROMYCIN TABLET) 250 Mg Tablet, 250 MG PO DAILY for bronchitis for 7 Days, #7 TAB Prov:CORWIN FLOREZ MD 10/23/20 Fluticasone Propionate (FLUTICASONE PROPIONATE NASAL SPRAY) 16 Gm [place].susp, 2 SPRAY NS DAILY for nasal congestuon for 30 Days, SPRAY Prov:SUE MARINO MD 07/10/19 Cetirizine Hcl (CETIRIZINE HCL) 10 Mg Tablet, 10 MG PO DAILY for OTC, #30 TAB Prov:SUE MARINO MD 07/10/19 Ferrous Sulfate (FERROUS SULFATE) 300 Mg/5 Ml Liquid, 300 MG PO BIDWMEALS for iron deficiency for 30 Days, #60 LIQUID Prov:YANETHFEZEB Ibrahim MD 08/29/18 Potassium Chloride (POTASSIUM CHLORIDE ) 10 Meq Capsule.er, 1 CAP PO DAILY, #30 CAP 5 Refills Prov:CIERRA ORTEGA MD 04/26/15 Reported Medications Oxybutynin Chloride (OXYBUTYNIN CHLORIDE ER) 10 Mg Tab.er.24, 1 TAB PO DAILY for BLADDER 10/22/20 Rosuvastatin Calcium (Rosuvastatin Calcium) 5 Mg Tablet, 5 MG PO HS for HLD 10/22/20 Alprazolam (XANAX) 0.25 Mg Tablet, 0.25 MG PO TID PRN for ANXIETY / AGITATION, TAB 0 Refills 03/24/19 Pantoprazole Sodium (PROTONIX) 20 Mg Tablet.dr, 40 MG PO DAILY for gerd, TAB 01/13/19 Sertraline Hcl (ZOLOFT) 50 Mg Tablet, 1 TAB PO HS for anxiety, #30 TAB 2 Refills 05/10/18 Clopidogrel Bisulfate (CLOPIDOGREL) 75 Mg Tablet, 1 TAB PO DAILY, #90 TAB 1 Refill 02/25/18 Montelukast Sodium (SINGULAIR TABLET ) 10 Mg Tablet, 1 TAB PO HS for COPD, #90 TAB 1 Refill 04/27/14 Furosemide (LASIX) 20 Mg Tablet, 1 TAB PO DAILY16 for fluid retention, #90 TAB 1 Refill 04/27/14 Budesonide/Formoterol Fumarate (SYMBICORT 160-4.5 MCG INHALER) 10.2 Gm Hfa.aer.ad, 10.2 GM IH BID 07/28/13 Albuterol Sulfate (ALBUTEROL SULFATE HFA INHALER) 8.5 Gm Hfa.aer.ad, 8.5 GM IH PRN 07/28/13 Ipratropium/Albuterol Sulfate (DUONEB 0.5 MG-3 MG/3 ML SOLN) 3 Ml Ampul.neb, 3 ML IH QID 07/28/13 Aspirin (ASPIR 81) 81 Mg Tablet.dr, 81 MG PO DAILY 07/28/13 Discontinued Reported Medications Diclofenac Sodium (DICLOFENAC SODIUM) 75 Mg Tablet.dr, 1 TAB PO BID for INFLAMMATION 10/22/20 Estradiol (ESTRADIOL) 0.5 Mg Tablet, 0.5 MG PO DAILY for HRT 10/22/20 Discontinued Scripts Tizanidine Hcl (TIZANIDINE HCL) 4 Mg Tablet, 2 MG PO PRN Q8HRS PRN for MUSCLE SPASMS, #30 TAB Prov:SUE MARINO MD 07/10/19 [guaiFENesin/CODEINE 100mg/10mg] 5 ML LIQUID No Conflict Check, 5 ML PO PRN Q6HRS PRN for COUGH Prov:GUZMAN GALLEGOS MD 03/28/19 CORWIN FLOREZ MD October 24, 2020 11:32
[2020-10-24] MEDS: FUROSEMIDE 20 MG TABLET PO SCH (12:16)
--- NOTE | 2020-10-24 14:17 | NUR ---
Patient escorted out via wheelchair to main entrance and all belongings to personal vehicle by Collette CAIN IV and telemonitor discontinued by this RN. To home.
== END 2020-10-24 14:12 | disposition home health service (06) | DRG 189 ==
LOC: ER 15:14 → 6 SOUTH 17:10
PROVIDERS: ADMIT Family Medicine; ATTEND Family Medicine
DX: J96.21 Acute and chronic respiratory failure with hypoxia (principal); J44.0 Chronic obstructive pulmonary disease with (acute) lower respiratory infection; J44.1 Chronic obstructive pulmonary disease with (acute) exacerbation; J98.11 Atelectasis; E66.01 Morbid (severe) obesity due to excess calories; E78.00 Pure hypercholesterolemia, unspecified; E78.5 Hyperlipidemia, unspecified; I11.0 Hypertensive heart disease with heart failure; I25.10 Atherosclerotic heart disease of native coronary artery without angina pectoris; I27.20 Pulmonary hypertension, unspecified; I50.9 Heart failure, unspecified; J20.9 Acute bronchitis, unspecified; Z20.822 Contact with and (suspected) exposure to COVID-19; Z82.49 Family history of ischemic heart disease and other diseases of the circulatory system; Z82.5 Family history of asthma and other chronic lower respiratory diseases; Z87.891 Personal history of nicotine dependence; Z90.710 Acquired absence of both cervix and uterus; F41.9 Anxiety disorder, unspecified; K21.9 Gastro-esophageal reflux disease without esophagitis; M19.90 Unspecified osteoarthritis, unspecified site; Z79.899 Other long term (current) drug therapy; Z68.32 Body mass index [BMI] 32.0-32.9, adult; Z88.0 Allergy status to penicillin; Z88.8 Allergy status to other drugs, medicaments and biological substances; Z90.49 Acquired absence of other specified parts of digestive tract
CPT/HCPCS: 36415; 71045; 71275; 80048; 80053; 81001; 82553; 83690; 83735; 83880; 84484; 85007; 85025; 87077; 87086; 87186; 93005; 94640; 94760; J1650; J2920; U0003; U0005; 97535-GO; 99285-25; G0378; J7626

== ENCOUNTER → 2020-10-28 | Outpatient (CLI) | payer OTHER ==
[2020-10-24 11:00] VITALS: BP 115/75
[~2020-10-28] MED LIST changes: +ACET325T21 PO; +AMLO-187 PO; +DICL75TA PO; +ESTR0.5T PO; +FLUT1AER2 INH; +LISI-517 PO; +MAG30ORA2 PO; +OXYB10TA26 PO; +ROSU5TAB12 PO
[2020-10-28 14:46] LABS: BASO # 0.1 x10^3/uL (0.0-0.2); BASO % 1 % (0-3); EOS % 0 % (0-3); HEMATOCRIT 41.7 % (36.0-47.0); HEMOGLOBIN 13.6 g/dL (12.0-15.5); LYMPH % 10 % (24-48); MEAN CORPUSCULAR HEMOGLOBIN 30 pg (25-35); MEAN CORPUSCULAR HGB CONC 33 g/dL (31-37); MEAN CORPUSCULAR VOLUME 92 fL (79-100); MONO # 0.4 x10^3/uL (0.0-1.1); MONO % 4 % (0-9); NEUT # 8.5 x10^3/uL (1.8-7.7); NEUT % 85 % (31-73); PLATELET COUNT 264 x10^3/uL (140-400); RED BLOOD COUNT 4.54 x10^6/uL (3.50-5.40); RED CELL DISTRIBUTION WIDTH 14.1 % (11.5-14.5); WHITE BLOOD COUNT 10.1 x10^3/uL (4.0-11.0)
== END ==
LOC: LAB 13:24
PROVIDERS: ATTEND Family Medicine
DX: J44.9 Chronic obstructive pulmonary disease, unspecified (principal)
CPT/HCPCS: 36415; 85025

== ENCOUNTER → 2020-11-07 | Outpatient (CLI) | payer OTHER ==
[2020-10-24 11:00] VITALS: BP 115/75
--- NOTE | 2020-11-07 09:51 | RAD ---
EXAM: Chest CT without intravenous contrast. HISTORY: Abnormal CT. Prominent hilar lymph nodes. TECHNIQUE: Computed tomographic images of the chest were obtained without contrast. Multiplanar refor matting was performed. *One or more of the following individualized dose reduction techniques were utilized for this examina tion: 1. Automated exposure control. 2. Adjustment of the mA and/or kV according to patient size. 3. Use of iterative reconstruction technique. COMPARISON: 10/21/2020. FINDINGS: The heart is normal in size. There is calcified atherosclerotic plaque involving the aorta, aortic arch great vessels and coronary arteries. There are prominent central pulmonary arteries. No pathologically enlarged lymph node is seen on this noncontrast exam. There is no pneumothorax or pleural effusion. There is mild emphysema. There is lingular and left low er lobe linear atelectasis or scarring. There is basilar and posterior dependent atelectasis. There i s atelectasis or scarring within the anterior medial right middle lobe. There is no infiltrate or keiko picious pulmonary nodule. There is no acute finding involving the upper abdomen. There is no suspicious osseous lesion. There i s no acute osseous finding. IMPRESSION: 1. No acute thoracic finding. 2. Mild emphysema with mild bilateral atelectasis and pleural parenchymal scarring. 3. Stable prominent central pulmonary arteries. This can be seen with pulmonary artery hypertension. 4. No evidence of lymphadenopathy, with evaluation limited due to the absence of contrast. Electronically signed by: Tiara Finch MD (11/07/2020 9:49 AM) [id number]
== END ==
LOC: CT 08:48
PROVIDERS: ATTEND Internal Medicine Pulmonary Disease
DX: R93.89 Abnormal findings on diagnostic imaging of other specified body structures (principal); I70.0 Atherosclerosis of aorta; I25.10 Atherosclerotic heart disease of native coronary artery without angina pectoris
CPT/HCPCS: 71250

== ENCOUNTER → 2020-11-12 | Outpatient (CLI) | payer OTHER ==
[2020-10-24 11:00] VITALS: BP 115/75
--- NOTE | 2020-11-12 15:55 | RAD ---
MR LUMBAR SPINE WO [id number] History: Reason: LUMBAR RADICULOPATHY / Spl. Instructions: / History: Technique: Multiplanar, multi sequential MR imaging was performed of the lumbar spine. Comparison: November 14, 2015 Findings: Motion degraded examination. Normal vertebral body height and alignment. No fracture. Conus terminates at the normal location. No evidence of nerve root clumping. L1-L2: No canal or neuroforaminal narrowing. L2-L3: Minimal disc bulge. No canal or neuroforaminal narrowing. L3-L4: Small disc bulge. Mild facet arthropathy. No canal narrowing. Small left foraminal disc protr usion. Minimal left neuroforaminal narrowing. No right neuroforaminal narrowing. L4-L5: Disc bulge. Moderate facet arthropathy. No canal narrowing. Left foraminal disc protrusion. M ild left neuroforaminal narrowing. Slight abutment of the exiting left L4 nerve root. L5-S1: Small disc bulge. Moderate facet arthropathy. No canal narrowing. No neuroforaminal narrowing . When compared the prior examination the degenerative findings are mildly progressed compared to prior . Impression: 1. Mild multilevel lumbar spondylosis, progressed compared to 2016. 2. Mild left neuroforaminal narrowing. Electronically signed by: Galo Lopez DO (11/12/2020 3:52 PM) BILLY
== END ==
LOC: MRI 13:34
PROVIDERS: ATTEND Family Medicine
DX: M47.27 Other spondylosis with radiculopathy, lumbosacral region (principal); M48.07 Spinal stenosis, lumbosacral region
CPT/HCPCS: 72148

== ENCOUNTER 2020-12-18 09:50 | Inpatient (IN) | payer OTHER ==
[~2020-12-18] VITALS: Ht 152.4 cm; Wt 76.3 kg
[2020-12-18] MEDS ORDERED: IPRATRPIUM/ALBUTEROL 0.5/2.5MG 3 ML NEBU. NEB ONE (10:45)
[2020-12-18] MEDS ORDERED: methylPREDNISolone SOD SUCC PF 125 MG/2 ML VIAL. IV ONE (10:45)
--- NOTE | 2020-12-18 11:09 | RAD ---
INDICATION: Reason: SOA / Spl. Instructions: / History: COMPARISON: October 2020 FINDINGS: Single view of chest obtained. Calcific atherosclerosis. Repeat demonstration of enlargement of the bilateral pulmonary hilum. No new region of airspace consolidation or pulmonary edema. IMPRESSION: * No focal airspace consolidation or edema. * Repeat demonstration of enlargement of the bilateral pulmonary hilum which could be from enlarged pulmonary arteries. Electronically signed by: Lokesh Johnson MD (12/18/2020 11:07 AM) [id number]
--- NOTE | 2020-12-18 11:15 | EKG ---
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
[2020-12-18 11:25] LABS: BASO % 1 % (0-3); EOS % 1 % (0-3); HEMOGLOBIN 13.1 g/dL (12.0-15.5); LYMPH # 1.7 x10^3/uL (1.0-4.8); LYMPH % 29 % (24-48); MEAN CORPUSCULAR HEMOGLOBIN 31 pg (25-35); MEAN CORPUSCULAR HGB CONC 34 g/dL (31-37); MEAN CORPUSCULAR VOLUME 93 fL (79-100); MONO % 16 % (0-9); NEUT # 3.3 x10^3/uL (1.8-7.7); NEUT % 54 % (31-73); PLATELET COUNT 241 x10^3/uL (140-400); RED BLOOD COUNT 4.21 x10^6/uL (3.50-5.40)
[2020-12-18 11:41] LABS: CALCIUM 8.7 mg/dL (8.5-10.1); CREATININE 0.7 mg/dL (0.6-1.0); GFR 102.6; POTASSIUM 3.9 mmol/L (3.5-5.1)
--- NOTE | 2020-12-18 11:41 | PHYS DOC ---
Past Medical History Past Medical History: CAD, COPD, High Cholesterol, Hypertension, Other Additional Past Medical Histor: CHRONIC BRONCHITIS ([facility]LEY [employer]) Past Surgical History: Angioplasty, Hysterectomy, Tonsillectomy, Other Additional Past Surgical Histo: HEART CATH,EXP SURG X4, laproscopy ([facility] [employer]) Smoking Status: Former Smoker Alcohol Use: None Drug Use: None ([facility]) General Adult EDM: Chief Complaint: DYSPNEA/RESPIRATORY DISTRESS HPI: HPI: Patient is a 60 year old female with history of COPD on oxygen 2 L, hypertension, high cholesterol, who presents the ED today complaining of shortness of breath, cough and nasal congestion, symptoms began 3 weeks ago. Patient states also her eyes have been red for 3 weeks. Denies any tearing. Patient states she followed up with her PCP as well as community center worker and they treated her with Mucinex, Robitussin, antihistamines and steroid inhaler. Patient states symptoms have not cleared up. She states today she feels her symptoms are worse. Patient states her O2 saturations have been running around 88% on 2 L of oxygen. Patient is also complaining of mild left low back pain radiating to the left lower extremity. She states she already has sciatica and this pain is consistent with her sciatica. Denies any injury. Denies any loss of bowel/bladder function. Patient is also complaining of a knot on the right side of her throat that she states has been checked up by her PCP. She states they already did an outpatient ultrasound which was negative for any acute findings. ([employer]) Review of Systems: Review of Systems: Constitutional: Denies fever or chills. [] Eyes: Denies change in visual acuity. [] HENT: Reports knot in the neck. Reports nasal congestion, denies sore throat. [] Respiratory: Reports cough and shortness of breath. [] Cardiovascular: Denies chest pain or edema. [] GI: Denies abdominal pain, nausea, vomiting, bloody stools or diarrhea. [] : Denies dysuria. [] Musculoskeletal: Reports pain to the left low back radiating to the left lower extremity Integument: Denies rash. [] Neurologic: Denies headache, focal weakness or sensory changes. [] Psychiatric: Denies depression or anxiety. [] (MUTUNGDEAN Schwartz [employer]) Heart Score: C/O Chest Pain: N/A Risk Factors: Risk Factors: DM, Current or recent (<one month) smoker, HTN, HLP, family history of CAD, obesity. Risk Scores: Score 0 - 3: 2.5% MACE over next 6 weeks - Discharge Home Score 4 - 6: 20.3% MACE over next 6 weeks - Admit for Clinical Observation Score 7 - 10: 72.7% MACE over next 6 weeks - Early Invasive Strategies (DODIEABUNDIODEAN Alfonzo [employer]) Current Medications: Current Medications Medications (Trade) Dose Ordered Sig/Umang Start Time Stop Time Status Last Admin Dose Admin Albuterol/ Ipratropium (Duoneb) 3 ml 1X ONCE 12/18/20 10:45 12/18/20 10:46 DC 12/18/20 10:55 3 ML Methylprednisolone Sodium Succinate (SOLU-Medrol 125MG VIAL) 125 mg 1X ONCE 12/18/20 10:45 12/18/20 10:46 DC 12/18/20 11:10 125 MG (DEAN HANDLEY Alfonzo [employer]) Allergies: Allergies: Allergies Coded Allergies Type Severity Reaction Last Updated Verified iron Allergy Severe Swelling 10/21/20 Yes Penicillins Allergy Intermediate rash 10/21/20 Yes morphine Allergy Intermediate Rash-PERCOCET OK 10/21/20 Yes benzonatate Adverse Reaction Intermediate Itching 10/21/20 Yes (ARLENELanaDEAN Alfonzo [employer]) Physical Exam: PE: Constitutional: Well developed, well nourished, no acute distress, non-toxic appearance. [] HENT: Normocephalic, atraumatic, bilateral external ears normal, oropharynx moist, no oral exudates, nose normal. [] Eyes: PERRLA, EOMI, conjunctiva normal, no discharge. [] Neck: Palpable mass noted on the right anterior cervical spine. Normal range of motion, no tenderness, supple, no stridor. [] Cardiovascular:Heart rate regular rhythm, no murmur [] Lungs & Thorax: Decreased air movement Abdomen: Bowel sounds normal, soft, no tenderness, no masses, no pulsatile masses. [] Skin: Warm, dry, no erythema, no rash. [] Back: No tenderness, no CVA tenderness. Positive straight leg raises to the left side at roughly 45 degrees Extremities: No tenderness, no cyanosis, no clubbing, ROM intact, no edema. [] Neurologic: Alert and oriented X 3, normal motor function, normal sensory function, no focal deficits noted. [] Psychologic: Affect normal, judgement normal, mood normal. [] (DEAN HANDLEY Alfonzo JOVEL) Current Patient Data: Vital Signs: Vital Signs Date Time Temp Pulse Resp B/P (MAP) Pulse Ox O2 Delivery O2 Flow Rate FiO2 12/18/20 10:55 93 Nasal Cannula 2.0 12/18/20 09:58 98.0 99 18 135/81 (88) 98.0 (DEAN HANDLEY Alfonzo [employer]) EKG: EK interpreted by Dr. Johns sinus rhythm heart rate 79 no STEMI (EMMANUELLEDEAN Alfonzo JOVEL) Radiology/Procedures: Radiology/Procedures: []PROCEDURE: PORTABLE CHEST 1V INDICATION: Reason: SOA / Spl. Instructions: / History: COMPARISON: October 2020 FINDINGS: Single view of chest obtained. Calcific atherosclerosis. Repeat demonstration of enlargement of the bilateral pulmonary hilum. No new region of airspace consolidation or pulmonary edema. IMPRESSION: * No focal airspace consolidation or edema. * Repeat demonstration of enlargement of the bilateral pulmonary hilum which could be from enlarged pulmonary arteries. Electronically signed by: Gregorio Bella MD (12/18/2020 11:07 AM) [id number] DICTATED and SIGNED BY: GREGORIO BELLA MD DATE: 12/18/20 [id number] (DE[facility] [employer]LEY [employer]) Course & Med Decision Making: Course & Med Decision Making Pertinent Labs and Imaging studies reviewed. (See chart for details) This is a 60-year-old female patient presenting today complaining of shortness of breath, cough and nasal congestion as well as bilateral eye redness, symptoms for 3 weeks. Has been seen by the PCP as well as community center worker, was started on steroid inhalers, Robitussin antihistamine Mucinex with no relief. Also complaining of left sciatica pain as well as a knot in the neck. The knot in the neck has been evaluated by the PCP and they also did an outpatient ultrasound which was negative. Vitals on arrival to the ED temperature 98.0, heart rate 99, respiration 18, O2 sats 94% on 2 L of oxygen, blood pressure 135/81. Chest x-ray with no acute findings, CBC CMP troponin EKG were negative for any acute findings. Patient was admitted to the hospital under Dr. Eid. Consult placed for pulmonary. She was given a breathing treatment and Solu-Medrol in the ED. (DEAN HANDLEY APRN) Dragon Disclaimer: Dragon Disclaimer: This electronic medical record was generated, in whole or in part, using a voice recognition dictation system. (DEAN HANDLEY APRN) Departure Departure Impression: Primary Impression: COPD (chronic obstructive pulmonary disease) Qualified Codes: J44.9 - Chronic obstructive pulmonary disease, unspecified Additional Impression: Acute respiratory failure Qualified Codes: J96.01 - Acute respiratory failure with hypoxia Disposition: ADMITTED INPATIENT Condition: STABLE Referrals: GUZMAN GALLEGOS MD (PCP) Attending Signature I have participated in the care of this patient and I have reviewed and agree with all pertinent clinical information above including history, exam, and recommendations. (PAULA JOHNS DO) DEAN HANDLEY APRN Dec 18, 2020 11:41 PAULA JOHNS DO Dec 18, 2020 13:45
[2020-12-18 11:46] LABS: ALBUMIN 3.9 g/dL (3.4-5.0); ALBUMIN/GLOBULIN RATIO 1.3 (1.0-1.7); MAGNESIUM 2.2 mg/dL (1.8-2.4); TOTAL BILIRUBIN 0.3 mg/dL (0.2-1.0)
[2020-12-18] MEDS ORDERED: ACETAMINOPHEN 325 MG TABLET. PO PRN (13:00)
[2020-12-18] MEDS ORDERED: fentaNYL PF VIAL 100 MCG/2 ML VIAL IV PRN (13:00)
[2020-12-18] MEDS ORDERED: ONDANSETRON PF 4 MG/2 ML VIAL. IVP PRN (13:00)
[2020-12-18] MEDS ORDERED: ONDANSETRON PF 4 MG/2 ML VIAL. IV PRN (13:00)
[2020-12-18] MEDS: IPRATRPIUM/ALBUTEROL 0.5/2.5MG 3 ML NEBU. NEB SCH ×3 (13:15→20:35)
[2020-12-18] MEDS ORDERED: IPRATRPIUM/ALBUTEROL 0.5/2.5MG 3 ML NEBU. NEB SCH (16:00)
[2020-12-18] MEDS ORDERED: ESTR0.5T PO (16:39)
[2020-12-18] MEDS ORDERED: DICL75TA PO (16:39)
[2020-12-18] MEDS ORDERED: METF-658 PO (16:39)
[2020-12-18] MEDS ORDERED: FAMO40TA4 PO (16:39)
[2020-12-18] MEDS ORDERED: FERR325T72 PO (16:47)
[2020-12-18 16:51] VITALS: BP 131/83
[2020-12-18] MEDS ORDERED: ALPRAZolam 0.25 MG TABLET PO PRN (18:30)
[2020-12-18] MEDS ORDERED: OXYBUTYNIN CHLORIDE 5 MG TABLET PO PRN (19:00)
--- NOTE | 2020-12-18 19:07 | PDOC1 ---
History and Physical Date of Service: DOS: DATE: 12/18/20 TIME: 19:04 Chief Complaint: Problems: (1) COPD exacerbation (2) Hypoxia (3) Shortness of breath (4) Acute on chronic respiratory failure with hypoxia and hypercapnia Chief Complain: Shortness of breath History of Present Illness: Reason for Visit: Shortness of breath despite home O2 HPI: Patient is a 60-year-old -[place] female presenting today with increased shortness of breath. Patient has a long history of COPD, is a former smoker, that has gotten much worse over the past year according to her. 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 Reports complete compliance with her medications. She describes her symptoms as cough, shortness of breath, easy fatigue with exertion. Denies any sort of fevers, chest pain, headaches, nausea or vomiting. Patient also complaining of some lower back pain at she says it is chronic due to sciataca.. Past Medical/Surgical History: PMH/PSH: CAD, COPD, High Cholesterol, Hypertension, Allergies: Allergies: Coded Allergies: iron (Verified Allergy, Severe, Swelling, 10/21/20) Itching, swelling of hands with IV infusion; able to tolerate PO Penicillins (Verified Allergy, Intermediate, rash, 10/21/20) morphine (Verified Allergy, Intermediate, Rash-PERCOCET OK, 10/21/20) benzonatate (Verified Adverse Reaction, Intermediate, Itching, 10/21/20) Family History: Family History: Hypertension Social History: Social History: Former smoker. Denies alcohol and substance abuse Current Medications: Current Medications Current Medications Methylprednisolone Sodium Succinate (SOLU-Medrol 125MG VIAL) 125 mg 1X ONCE IV Last administered on 12/18/20at 11:10; Start 12/18/20 at 10:45; Stop 12/18/20 at 10:46; Status DC Albuterol/ Ipratropium (Duoneb) 3 ml 1X ONCE NEB Last administered on 12/18/20at 10:55; Start 12/18/20 at 10:45; Stop 12/18/20 at 10:46; Status DC Ondansetron HCl (Zofran) 4 mg PRN Q6HRS PRN IVP NAUSEA/VOMITING; Start 12/18/20 at 13:00 Senna/Docusate Sodium (Senna Plus) 1 tab BID PO ; Start 12/18/20 at 21:00 Heparin Sodium (Porcine) (Heparin Sodium) 5,000 unit Q8HRS SQ ; Start 12/18/20 at 22:00 Ondansetron HCl (Zofran) 4 mg PRN Q8HRS PRN IV NAUSEA/VOMITING; Start 12/18/20 at 13:00; Stop 12/19/20 at 12:59; Status UNV Fentanyl Citrate (Fentanyl 2ml Vial) 50 mcg PRN Q1HR PRN IV PAIN; Start 12/18/20 at 13:00; Stop 12/18/20 at 13:06; Status DC Acetaminophen (Tylenol) 650 mg PRN Q4HRS PRN PO FEVER > 100.3'F; Start 12/18/20 at 13:00; Stop 12/19/20 at 12:59 Albuterol/ Ipratropium (Duoneb) 3 ml RTQID NEB ; Start 12/18/20 at 16:00; Stop 12/18/20 at 13:12; Status DC Albuterol/ Ipratropium (Duoneb) 3 ml Q4HRS W/A NEB Last administered on 12/18/20at 16:28; Start 12/18/20 at 14:00 Budesonide (Pulmicort) 0.5 mg DAILY NEB ; Start 12/19/20 at 09:00 Alprazolam (Xanax) 0.25 mg PRN TID PRN PO ANXIETY / AGITATION; Start 12/18/20 at 18:30 Amlodipine Besylate (Norvasc) 10 mg DAILY PO ; Start 12/19/20 at 09:00 Aspirin (Ecotrin) 81 mg DAILY PO ; Start 12/19/20 at 09:00 Cetirizine HCl (ZyrTEC) 10 mg DAILY PO ; Start 12/19/20 at 09:00 Clopidogrel Bisulfate (Plavix) 75 mg DAILY PO ; Start 12/19/20 at 09:00 Ferrous Sulfate (Feosol) 325 mg DAILY PO ; Start 12/19/20 at 09:00 Fluticasone Propionate (Flonase) 2 spray DAILY NS ; Start 12/19/20 at 09:00 Lisinopril (Prinivil) 5 mg BID PO ; Start 12/18/20 at 21:00 Montelukast Sodium (Singulair) 10 mg HS PO ; Start 12/18/20 at 21:00 Potassium Chloride (Klor-Con) 10 meq DAILY PO ; Start 12/19/20 at 09:00 Sertraline HCl (Zoloft) 50 mg HS PO ; Start 12/18/20 at 21:00 Oxybutynin Chloride (Ditropan) 5 mg PRN BID PRN PO BLADDER URGENCY; Start 12/18/20 at 19:00 Pantoprazole Sodium (Protonix) 40 mg DAILYAC PO ; Start 12/19/20 at 07:30 Active Scripts Active Lisinopril 5 Mg Tablet 5 Mg PO BID 30 Days Culturelle (Lactobacillus Rhamnosus Gg) 1 Each Cap.sprink 1 Cap PO BID 30 Days Breo Ellipta 100-25 Mcg INH (Fluticasone/Vilanterol) 1 Each Blst.w.dev 1 Puff INH DAILY 30 Days Amlodipine Besylate 10 Mg Tablet 10 Mg PO DAILY 30 Days Azithromycin Tablet (Azithromycin) 250 Mg Tablet 250 Mg PO DAILY 7 Days Fluticasone Propionate Nasal Levelock (Fluticasone Propionate) 16 Gm Levelock.susp 2 Levelock NS DAILY 30 Days Cetirizine Hcl 10 Mg Tablet 10 Mg PO DAILY Potassium Chloride (Potassium Chloride) 10 Meq Capsule.er 1 Cap PO DAILY Reported Feosol (Ferrous Sulfate) 325 Mg Tablet 325 Mg PO DAILY Metformin Hcl Er (Metformin Hcl) 500 Mg Tab.er.24h 1 Tab PO DAILYWSUP Diclofenac Sodium 75 Mg Tablet.dr 1 Tab PO BID Estradiol 0.5 Mg Tablet 1 Tab PO DAILY Oxybutynin Chloride Er (Oxybutynin Chloride) 10 Mg Tab.er.24 1 Tab PO DAILY PRN Xanax (Alprazolam) 0.25 Mg Tablet 0.25 Mg PO TID PRN Protonix (Pantoprazole Sodium) 20 Mg Tablet.dr 40 Mg PO DAILY Zoloft (Sertraline Hcl) 50 Mg Tablet 1 Tab PO HS Clopidogrel (Clopidogrel Bisulfate) 75 Mg Tablet 1 Tab PO DAILY Singulair Tablet (Montelukast Sodium) 10 Mg Tablet 1 Tab PO HS Albuterol Sulfate Hfa Inhaler (Albuterol Sulfate) 8.5 Gm Hfa.aer.ad 8.5 Gm IH PRN Duoneb 0.5 Mg-3 Mg/3 Ml Soln (Ipratropium/Albuterol Sulfate) 3 Ml Ampul.neb 3 Ml IH QID Aspir 81 (Aspirin) 81 Mg Tablet.dr 81 Mg PO DAILY ROS: Review of Systems Negative unless noted in HPI Physical Exam: Vital Signs: Vital Signs Date Time Temp Pulse Resp B/P (MAP) Pulse Ox O2 Delivery O2 Flow Rate FiO2 12/18/20 16:51 99.2 116 18 131/83 (99) 91 Nasal Cannula 3.0 99.2 Physcial Exam: GEN: No apparent distress. Alert and oriented HEENT: Normal cephalic, atraumatic, external auditory canals are patent MUSCULOSKELETAL: Well developed , well nourished, good range of motion ENDOCRINE: No thyromegaly was palpated LYMPHATICS: No cervical chain or axillary nodes were noted HEMATOPOIETIC: No bruising NECK: Supple, no JVD, no thyromegaly was noted LUNGS: Notably coarse throughout however no apparent focal wheezing noted. Patient on 3 L nasal cannula HEART: RRR, S!, S2 present. Peripheral pulses intact, no obvious murmurs noted ABDOMEN: Soft, nontender. Positive bowel sounds, no organomegaly, normal esteban wel sounds EXTREMITIES: Without clubbing, cyanosis, or edema NEUROLOGIC: Normal speech and tone. A&O x 3, moves all extremities, no obvious focal deficits PSYCHIATRIC: Normal affect, normal mood. Stable SKIN: No ulcerations or rashes, good skin turgor, no jaundice VASCULAR: Good capillary refill, neurovascular bundle appears to be intact Labs: Labs: Laboratory Tests Test 12/18/20 11:06 12/18/20 15:30 White Blood Count 6.0 x10^3/uL (4.0-11.0) Red Blood Count 4.21 x10^6/uL (3.50-5.40) Hemoglobin 13.1 g/dL (12.0-15.5) Hematocrit 39.0 % (36.0-47.0) Mean Corpuscular Volume 93 fL (79-100) Mean Corpuscular Hemoglobin 31 pg (25-35) Mean Corpuscular Hemoglobin Concent 34 g/dL (31-37) Red Cell Distribution Width 14.0 % (11.5-14.5) Platelet Count 241 x10^3/uL (140-400) Neutrophils (%) (Auto) 54 % (31-73) Lymphocytes (%) (Auto) 29 % (24-48) Monocytes (%) (Auto) 16 % (0-9) Eosinophils (%) (Auto) 1 % (0-3) Basophils (%) (Auto) 1 % (0-3) Neutrophils # (Auto) 3.3 x10^3/uL (1.8-7.7) Lymphocytes # (Auto) 1.7 x10^3/uL (1.0-4.8) Monocytes # (Auto) 1.0 x10^3/uL (0.0-1.1) Eosinophils # (Auto) 0.0 x10^3/uL (0.0-0.7) Basophils # (Auto) 0.0 x10^3/uL (0.0-0.2) Sodium Level 146 mmol/L (136-145) Potassium Level 3.9 mmol/L (3.5-5.1) Chloride Level 108 mmol/L (98-107) Carbon Dioxide Level 35 mmol/L (21-32) Anion Gap 3 (6-14) Blood Urea Nitrogen 8 mg/dL (7-20) Creatinine 0.7 mg/dL (0.6-1.0) Estimated GFR (Cockcroft-Gault) 102.6 BUN/Creatinine Ratio 11 (6-20) Glucose Level 64 mg/dL (70-99) Lactic Acid Level 1.0 mmol/L (0.4-2.0) Calcium Level 8.7 mg/dL (8.5-10.1) Magnesium Level 2.2 mg/dL (1.8-2.4) Total Bilirubin 0.3 mg/dL (0.2-1.0) Aspartate Amino Transf (AST/SGOT) 17 U/L (15-37) Alanine Aminotransferase (ALT/SGPT) 17 U/L (14-59) Alkaline Phosphatase 66 U/L (46-116) Creatine Kinase 300 U/L (26-192) Creatine Kinase MB (Mass) 3.3 ng/mL (0.0-3.6) Creatine Kinase MB Relative Index 1.1 % (0-4) Troponin I Quantitative < 0.017 ng/mL (0.000-0.055) < 0.017 ng/mL (0.000-0.055) HV-Esh-H-Type Natriuretic Peptide 289 pg/mL (0-124) Total Protein 7.0 g/dL (6.4-8.2) Albumin 3.9 g/dL (3.4-5.0) Albumin/Globulin Ratio 1.3 (1.0-1.7) Procalcitonin < 0.10 ng/mL (0.00-0.10) Thyroid Stimulating Hormone (TSH) 0.929 uIU/mL (0.358-3.74) Laboratory Tests Test 12/18/20 11:06 12/18/20 15:30 White Blood Count 6.0 x10^3/uL (4.0-11.0) Red Blood Count 4.21 x10^6/uL (3.50-5.40) Hemoglobin 13.1 g/dL (12.0-15.5) Hematocrit 39.0 % (36.0-47.0) Mean Corpuscular Volume 93 fL (79-100) Mean Corpuscular Hemoglobin 31 pg (25-35) Mean Corpuscular Hemoglobin Concent 34 g/dL (31-37) Red Cell Distribution Width 14.0 % (11.5-14.5) Platelet Count 241 x10^3/uL (140-400) Neutrophils (%) (Auto) 54 % (31-73) Lymphocytes (%) (Auto) 29 % (24-48) Monocytes (%) (Auto) 16 % (0-9) Eosinophils (%) (Auto) 1 % (0-3) Basophils (%) (Auto) 1 % (0-3) Neutrophils # (Auto) 3.3 x10^3/uL (1.8-7.7) Lymphocytes # (Auto) 1.7 x10^3/uL (1.0-4.8) Monocytes # (Auto) 1.0 x10^3/uL (0.0-1.1) Eosinophils # (Auto) 0.0 x10^3/uL (0.0-0.7) Basophils # (Auto) 0.0 x10^3/uL (0.0-0.2) Sodium Level 146 mmol/L (136-145) Potassium Level 3.9 mmol/L (3.5-5.1) Chloride Level 108 mmol/L (98-107) Carbon Dioxide Level 35 mmol/L (21-32) Anion Gap 3 (6-14) Blood Urea Nitrogen 8 mg/dL (7-20) Creatinine 0.7 mg/dL (0.6-1.0) Estimated GFR (Cockcroft-Gault) 102.6 BUN/Creatinine Ratio 11 (6-20) Glucose Level 64 mg/dL (70-99) Lactic Acid Level 1.0 mmol/L (0.4-2.0) Calcium Level 8.7 mg/dL (8.5-10.1) Magnesium Level 2.2 mg/dL (1.8-2.4) Total Bilirubin 0.3 mg/dL (0.2-1.0) Aspartate Amino Transf (AST/SGOT) 17 U/L (15-37) Alanine Aminotransferase (ALT/SGPT) 17 U/L (14-59) Alkaline Phosphatase 66 U/L (46-116) Creatine Kinase 300 U/L (26-192) Creatine Kinase MB (Mass) 3.3 ng/mL (0.0-3.6) Creatine Kinase MB Relative Index 1.1 % (0-4) Troponin I Quantitative < 0.017 ng/mL (0.000-0.055) < 0.017 ng/mL (0.000-0.055) HK-Boa-W-Type Natriuretic Peptide 289 pg/mL (0-124) Total Protein 7.0 g/dL (6.4-8.2) Albumin 3.9 g/dL (3.4-5.0) Albumin/Globulin Ratio 1.3 (1.0-1.7) Procalcitonin < 0.10 ng/mL (0.00-0.10) Thyroid Stimulating Hormone (TSH) 0.929 uIU/mL (0.358-3.74) Assessment/Plan Assessment/Plan Patient is a 60-year-old -[place] female admitted for COPD exacerbation COPD exacerbation, acute hypoxic respiratory failure -Long history of COPD -On home inhalers and reports compliance with him; will start patient on DuoNebs -Received Solu-Medrol in the ICU; will restart steroids in the morning -Oxygen as needed -Pulmonary team consulted Hypertension, anxiety, allergic rhinitis -Home medications resumed Justifications for Admission Other Justification Acute respiratory failure with hypoxia, acute COPD exacerbation ZEB VERA MD Dec 18, 2020 19:07
--- NOTE | 2020-12-18 19:12 | NUR ---
The patient, EDDI QUEZADA, 60 y/o, F admitted by ZEB VERA MD, was given written information regarding hospital policies, unit procedures and contact persons. Oriented to room. Valuable documented. Home medications reconciled. Reviewed orders and plan of care. Dr. Miller notified of consult. Will continuer to monitor.
[2020-12-18 19:19] VITALS: BP 125/77
--- NOTE | 2020-12-18 19:58 | NUR ---
ASSUME CARE , PT SITTING ON SIDE OF BED WAATCHING TV, DENIES C/O PAIN AT THIS TIME. ASSESSMENT COMPLETE, VSS, EXPLAINED POC, PT VERBALIZED UNDERSTANDING. CALL LIGHT IN PLACE WILL CONT TO MONITOR PT STATUS AND SAFETY. PMRN
[2020-12-18] MEDS: SENNOSIDES/DOCUSATE 8.6/50MG TABLET. PO SCH (22:36)
[2020-12-18] MEDS: SERTRALINE 50 MG TABLET. PO SCH (22:36)
[2020-12-18] MEDS: MONTELUKAST SODIUM 10 MG TABLET. PO SCH (22:36)
[2020-12-18] MEDS: LISINOPRIL 5 MG TABLET. PO SCH (22:37)
[2020-12-18] MEDS: HEPARIN for SUB-Q USE 5,000 UNIT/ML VIAL. SQ SCH (22:38)
[2020-12-18 22:52] VITALS: BP 129/84
[2020-12-19 03:00] VITALS: BP 117/75
[2020-12-19] MEDS: HEPARIN for SUB-Q USE 5,000 UNIT/ML VIAL. SQ SCH ×3 (05:58→20:48)
[2020-12-19] MEDS: PANTOPRAZOLE 40 MG TABLET.DR. PO SCH ×2 (05:59→10:08)
[2020-12-19 07:00] VITALS: BP 119/74
[2020-12-19 07:02] LABS: BASO % 0 % (0-3); EOS % 0 % (0-3); HEMATOCRIT 38.7 % (36.0-47.0); LYMPH # 1.2 x10^3/uL (1.0-4.8); LYMPH % 21 % (24-48); MEAN CORPUSCULAR HEMOGLOBIN 31 pg (25-35); MEAN CORPUSCULAR HGB CONC 34 g/dL (31-37); MEAN CORPUSCULAR VOLUME 92 fL (79-100); MONO # 0.7 x10^3/uL (0.0-1.1); MONO % 13 % (0-9); NEUT # 3.8 x10^3/uL (1.8-7.7); NEUT % 66 % (31-73); PLATELET COUNT 234 x10^3/uL (140-400); RED BLOOD COUNT 4.21 x10^6/uL (3.50-5.40); RED CELL DISTRIBUTION WIDTH 14.2 % (11.5-14.5); WHITE BLOOD COUNT 5.7 x10^3/uL (4.0-11.0)
[2020-12-19] MEDS: IPRATRPIUM/ALBUTEROL 0.5/2.5MG 3 ML NEBU. NEB SCH ×5 (07:17→22:00)
[2020-12-19 07:40] LABS: ALBUMIN 3.7 g/dL (3.4-5.0); ALBUMIN/GLOBULIN RATIO 1.2 (1.0-1.7); CALCIUM 8.6 mg/dL (8.5-10.1); CREATININE 0.7 mg/dL (0.6-1.0); GFR 102.6; TOTAL BILIRUBIN 0.2 mg/dL (0.2-1.0); TOTAL PROTEIN 6.7 g/dL (6.4-8.2)
[2020-12-19] MEDS ORDERED: BUDESONIDE 0.5 MG/2 ML NEBU. NEB SCH (09:00)
[2020-12-19] MEDS: CETIRIZINE HCL 10 MG TABLET. PO SCH (10:11)
[2020-12-19] MEDS: LISINOPRIL 5 MG TABLET. PO SCH ×2 (10:12→20:47)
[2020-12-19] MEDS: POTASSIUM CHLORIDE 10 MEQ TABLET.ER. PO SCH (10:12)
[2020-12-19] MEDS: ASPIRIN ENTERIC COATED 81 MG TABLET.DR. PO SCH (10:12)
[2020-12-19] MEDS: FERROUS SULFATE 325 MG TABLET. PO SCH (10:13)
[2020-12-19] MEDS: predniSONE 20 MG TABLET PO SCH (10:13)
[2020-12-19] MEDS: CLOPIDOGREL BISULFATE 75 MG TABLET PO SCH (10:13)
[2020-12-19] MEDS: SENNOSIDES/DOCUSATE 8.6/50MG TABLET. PO SCH ×2 (10:13→20:46)
[2020-12-19] MEDS: FLUTICASONE 50MCG/NASAL SPRAY 16GM BOTTLE. NS SCH (10:19)
--- NOTE | 2020-12-19 10:43 | PDOC ---
[facility] PROGRESS NOTE Date of Service DOS: DATE: 12/19/20 TIME: 10:38 Chief Complaint Chief Complaint Shortness of breath History of Present Illness History of Present Illness 12/19/2020 Patient seen and evaluated at bedside Reports some improvement in her symptoms since yesterday Currently requiring 3 L oxygen Remains very pleasant Pulmonology consulted Plan for 6-minute walk test tomorrow Patient is a 60-year-old -[place] female presenting today with increased shortness of breath. Patient has a long history of COPD, is a former smoker, that has gotten much worse over the past year according to her. She says she has been seen by her PCP and call out clerk and will get some improvement initially with her symptoms however her symptoms always return shortly after her oral steroids are discontinued. Reports complete compliance with her medications. She describes her symptoms as cough, shortness of breath, easy fatigue with exertion. Denies any sort of fevers, chest pain, headaches, nausea or vomiting. Patient also complaining of some lower back pain at she says it is chronic due to sciataca.. Vitals/I&O Vitals/I&O: Vital Signs Date Time Temp Pulse Resp B/P (MAP) Pulse Ox O2 Delivery O2 Flow Rate FiO2 12/19/20 10:12 113 146/84 12/19/20 07:17 97 Nasal Cannula 3.0 12/19/20 07:00 97.8 18 97.8 I & O 12/18/20 12/18/20 12/19/20 15:00 23:00 07:00 Intake Total 400 ml 100 ml Balance 400 ml 100 ml Physical Exam General: Alert, Oriented X3, Cooperative, No acute distress Heart: Regular rate Lungs: Other (Coarse throughout however no apparent focal wheezing) Abdomen: Normal bowel sounds, Soft, No tenderness Extremities: No clubbing, Normal pulses, Other (Mild lower extremity edema) Labs Labs: Laboratory Tests Test 12/18/20 11:06 12/18/20 15:30 12/18/20 19:00 12/19/20 06:50 White Blood Count 6.0 x10^3/uL (4.0-11.0) 5.7 x10^3/uL (4.0-11.0) Red Blood Count 4.21 x10^6/uL (3.50-5.40) 4.21 x10^6/uL (3.50-5.40) Hemoglobin 13.1 g/dL (12.0-15.5) 13.0 g/dL (12.0-15.5) Hematocrit 39.0 % (36.0-47.0) 38.7 % (36.0-47.0) Mean Corpuscular Volume 93 fL (79-100) 92 fL (79-100) Mean Corpuscular Hemoglobin 31 pg (25-35) 31 pg (25-35) Mean Corpuscular Hemoglobin Concent 34 g/dL (31-37) 34 g/dL (31-37) Red Cell Distribution Width 14.0 % (11.5-14.5) 14.2 % (11.5-14.5) Platelet Count 241 x10^3/uL (140-400) 234 x10^3/uL (140-400) Neutrophils (%) (Auto) 54 % (31-73) 66 % (31-73) Lymphocytes (%) (Auto) 29 % (24-48) 21 % (24-48) Monocytes (%) (Auto) 16 % (0-9) 13 % (0-9) Eosinophils (%) (Auto) 1 % (0-3) 0 % (0-3) Basophils (%) (Auto) 1 % (0-3) 0 % (0-3) Neutrophils # (Auto) 3.3 x10^3/uL (1.8-7.7) 3.8 x10^3/uL (1.8-7.7) Lymphocytes # (Auto) 1.7 x10^3/uL (1.0-4.8) 1.2 x10^3/uL (1.0-4.8) Monocytes # (Auto) 1.0 x10^3/uL (0.0-1.1) 0.7 x10^3/uL (0.0-1.1) Eosinophils # (Auto) 0.0 x10^3/uL (0.0-0.7) 0.0 x10^3/uL (0.0-0.7) Basophils # (Auto) 0.0 x10^3/uL (0.0-0.2) 0.0 x10^3/uL (0.0-0.2) Sodium Level 146 mmol/L (136-145) 147 mmol/L (136-145) Potassium Level 3.9 mmol/L (3.5-5.1) 4.0 mmol/L (3.5-5.1) Chloride Level 108 mmol/L (98-107) 105 mmol/L (98-107) Carbon Dioxide Level 35 mmol/L (21-32) 37 mmol/L (21-32) Anion Gap 3 (6-14) 5 (6-14) Blood Urea Nitrogen 8 mg/dL (7-20) 11 mg/dL (7-20) Creatinine 0.7 mg/dL (0.6-1.0) 0.7 mg/dL (0.6-1.0) Estimated GFR (Cockcroft-Gault) 102.6 102.6 BUN/Creatinine Ratio 11 (6-20) 16 (6-20) Glucose Level 64 mg/dL (70-99) 109 mg/dL (70-99) Lactic Acid Level 1.0 mmol/L (0.4-2.0) Calcium Level 8.7 mg/dL (8.5-10.1) 8.6 mg/dL (8.5-10.1) Magnesium Level 2.2 mg/dL (1.8-2.4) Total Bilirubin 0.3 mg/dL (0.2-1.0) 0.2 mg/dL (0.2-1.0) Aspartate Amino Transf (AST/SGOT) 17 U/L (15-37) 12 U/L (15-37) Alanine Aminotransferase (ALT/SGPT) 17 U/L (14-59) 13 U/L (14-59) Alkaline Phosphatase 66 U/L (46-116) 56 U/L (46-116) Creatine Kinase 300 U/L (26-192) Creatine Kinase MB (Mass) 3.3 ng/mL (0.0-3.6) Creatine Kinase MB Relative Index 1.1 % (0-4) Troponin I Quantitative < 0.017 ng/mL (0.000-0.055) < 0.017 ng/mL (0.000-0.055) < 0.017 ng/mL (0.000-0.055) FH-Wwc-B-Type Natriuretic Peptide 289 pg/mL (0-124) Total Protein 7.0 g/dL (6.4-8.2) 6.7 g/dL (6.4-8.2) Albumin 3.9 g/dL (3.4-5.0) 3.7 g/dL (3.4-5.0) Albumin/Globulin Ratio 1.3 (1.0-1.7) 1.2 (1.0-1.7) Procalcitonin < 0.10 ng/mL (0.00-0.10) Thyroid Stimulating Hormone (TSH) 0.929 uIU/mL (0.358-3.74) Review of Systems Review of Systems: Patient reports ongoing cough that is productive; denies respiratory distress or difficulty breathing Assessment and Plan Assessmemt and Plan Problems Medical Problems: (1) Acute respiratory failure Status: Acute Patient is a 60-year-old -[place] female admitted for COPD exacerbation COPD exacerbation, acute hypoxic respiratory failure -Long history of COPD -On home inhalers and reports compliance with him; continue duo nebs add Pulmicort -Received Solu-Medrol in the ICU; continue prednisone forty oral daily -Oxygen as needed -Pulmonary team consulted Hypertension, anxiety, allergic rhinitis -Home medications resumed Problems: (1) Hypertension, accelerated (2) COPD (chronic obstructive pulmonary disease) Qualifiers: Qualified Codes: J44.9 - Chronic obstructive pulmonary disease, unspecified (3) Acute respiratory failure Qualifiers: Qualified Codes: J96.01 - Acute respiratory failure with hypoxia (4) Shortness of breath (5) COPD exacerbation (6) Acute on chronic respiratory failure with hypoxia and hypercapnia Comment Review of Relevant I have reviewed the following items paulette (where applicable) has been applied. Medications: Current Medications Medications (Trade) Dose Ordered Sig/Umang Route PRN Reason Start Time Stop Time Status Last Admin Dose Admin Methylprednisolone Sodium Succinate (SOLU-Medrol 125MG VIAL) 125 mg 1X ONCE IV 12/18/20 10:45 12/18/20 10:46 DC 12/18/20 11:10 Albuterol/ Ipratropium (Duoneb) 3 ml 1X ONCE NEB 12/18/20 10:45 12/18/20 10:46 DC 12/18/20 10:55 Senna/Docusate Sodium (Senna Plus) 1 tab BID PO 12/18/20 21:00 12/19/20 10:13 Heparin Sodium (Porcine) (Heparin Sodium) 5,000 unit Q8HRS SQ 12/18/20 22:00 12/19/20 05:58 Albuterol/ Ipratropium (Duoneb) 3 ml Q4HRS W/A NEB 12/18/20 14:00 12/19/20 07:17 Budesonide (Pulmicort) 0.5 mg DAILY NEB 12/19/20 09:00 12/19/20 07:16 Amlodipine Besylate (Norvasc) 10 mg DAILY PO 12/19/20 09:00 12/19/20 10:11 Aspirin (Ecotrin) 81 mg DAILY PO 12/19/20 09:00 12/19/20 10:12 Cetirizine HCl (ZyrTEC) 10 mg DAILY PO 12/19/20 09:00 12/19/20 10:11 Clopidogrel Bisulfate (Plavix) 75 mg DAILY PO 12/19/20 09:00 12/19/20 10:13 Ferrous Sulfate (Feosol) 325 mg DAILY PO 12/19/20 09:00 12/19/20 10:13 Fluticasone Propionate (Flonase) 2 spray DAILY NS 12/19/20 09:00 12/19/20 10:19 Lisinopril (Prinivil) 5 mg BID PO 12/18/20 21:00 12/19/20 10:12 Montelukast Sodium (Singulair) 10 mg HS PO 12/18/20 21:00 12/18/20 22:36 Potassium Chloride (Klor-Con) 10 meq DAILY PO 12/19/20 09:00 12/19/20 10:12 Sertraline HCl (Zoloft) 50 mg HS PO 12/18/20 21:00 12/18/20 22:36 Pantoprazole Sodium (Protonix) 40 mg DAILYAC PO 12/19/20 07:30 12/19/20 10:08 Prednisone (Prednisone) 40 mg DAILY PO 12/19/20 09:00 12/19/20 10:13 Justifications for Admission Other Justification Acute respiratory failure with hypoxia, acute COPD exacerbation ZEB VERA MD Dec 19, 2020 10:43
[2020-12-19] MEDS: HYDROCORTISONE 1% LOTION BOTTLE. TP SCH ×2 (10:47→20:46)
[2020-12-19] MEDS: SODIUM CHL/ALOE VERA NASAL GEL 14.1GM TUBE. NS PRN (10:48)
--- NOTE | 2020-12-19 11:14 | CONS ---
DATE OF CONSULTATION: 12/19/2020 ATTENDING PHYSICIAN: Bean Eid MD REASON FOR CONSULTATION: Dyspnea, COPD exacerbation. HISTORY OF PRESENT ILLNESS: The patient is a 60-year-old female who has a history of end-stage COPD, on home oxygen at 2 liters on a 24-hour basis. She was brought into the hospital with increasing shortness of breath. She has a cough which is nonproductive. No chest pains, no fever, no chills. She is all vaccinated with COVID-19. The patient's chest x-ray did not reveal any new consolidation. There was prominent hilum consistent with pulmonary hypertension. She states her oxygen saturations at home drops in the 80s to high 70s when she exerts on 2 liters. Consultation requested for further evaluation and management. PAST MEDICAL HISTORY: Significant for CAD, COPD, chronic respiratory failure with hypoxia, dyslipidemia, and hypertension. PAST SURGICAL HISTORY: No recent surgery. ALLERGIES: PENICILLIN, BENZONATATE, IRON, AND MORPHINE. SOCIAL HISTORY: Long history of tobacco use before quitting. MEDICATIONS: All reviewed as listed in the MRAD. REVIEW OF SYSTEMS: A 12-point system obtained. Pertinent positives and negatives discussed in my presence illness, otherwise noncontributory. All systems that were negative were reviewed as well. FAMILY HISTORY: Noncontributory to lungs. PHYSICAL EXAMINATION: VITAL SIGNS: Reviewed. Pulse ox 97% on 3 liters, afebrile. NECK: Supple. LUNGS: With diminished breath sounds bilaterally. CARDIOVASCULAR: With a regular rate. ABDOMEN: Soft. EXTREMITIES: With no pitting edema. LABORATORY DATA: Reviewed. White cell count 5.7, hemoglobin 13.0, platelets are 234. BUN and creatinine normal. IMPRESSION: 1. Dyspnea secondary to acute exacerbation of chronic obstructive pulmonary disease in a patient who has end-stage chronic obstructive pulmonary disease, on home oxygen at 2 liters on a 24-hour basis. No obvious infection. She may benefit from a 6-minute walk test and the need for more oxygen with activity. 2. Abnormal chest x-ray consistent with chronic obstructive pulmonary disease, but no definite consolidation. RECOMMENDATIONS: 1. Discussed with Dr. Eid. I would recommend 6-minute walk test in the next 24 hours and assess the need for more oxygen with activity. 2. Continue with present oral prednisone. 3. Continue with bronchodilators. Currently on DuoNeb and Pulmicort. 4. Repeat PFTs as an outpatient. 5. Possible discharge in the next [address]: Terence TID: [id number]
[2020-12-19 11:26] VITALS: BP 146/84
--- NOTE | 2020-12-19 13:01 | NUR ---
SS following for discharge planning. SS reviewed pt chart and discussed with pt RN. Pt is from home and is currently requiring oxygen at three liters nasal canula. Pt has home oxygen. Pulmonology consulted. SS will continue to follow for discharge planning.
[2020-12-19 14:13] VITALS: BP 119/79
[2020-12-19] MEDS ORDERED: traMADol 50 MG TABLET PO PRN (17:30)
[2020-12-19] MEDS ORDERED: ACETAMINOPHEN 325 MG TABLET. PO PRN (17:30)
[2020-12-19] MEDS ORDERED: guaiFENesin DM 200MG/20MG 10 ML SYRUP PO PRN (17:30)
[2020-12-19 19:29] VITALS: BP 132/75
[2020-12-19] MEDS: BUDESONIDE 0.5 MG/2 ML NEBU. NEB SCH (20:32)
[2020-12-19] MEDS: MONTELUKAST SODIUM 10 MG TABLET. PO SCH (20:46)
[2020-12-19] MEDS: SERTRALINE 50 MG TABLET. PO SCH (20:47)
[2020-12-19 22:42] VITALS: BP 113/64
[2020-12-20 03:36] VITALS: BP 137/74
[2020-12-20] MEDS: HEPARIN for SUB-Q USE 5,000 UNIT/ML VIAL. SQ SCH ×3 (05:44→22:36)
[2020-12-20 06:48] VITALS: BP 151/79
[2020-12-20] MEDS: IPRATRPIUM/ALBUTEROL 0.5/2.5MG 3 ML NEBU. NEB SCH ×5 (07:06→23:42)
[2020-12-20] MEDS: BUDESONIDE 0.5 MG/2 ML NEBU. NEB SCH ×2 (07:06→17:47)
[2020-12-20] MEDS: HYDROCORTISONE 1% LOTION BOTTLE. TP SCH ×3 (09:16→21:06)
[2020-12-20] MEDS: SODIUM CHL/ALOE VERA NASAL GEL 14.1GM TUBE. NS PRN (09:17)
[2020-12-20] MEDS: FLUTICASONE 50MCG/NASAL SPRAY 16GM BOTTLE. NS SCH (09:17)
[2020-12-20] MEDS: POTASSIUM CHLORIDE 10 MEQ TABLET.ER. PO SCH (09:18)
[2020-12-20] MEDS: ASPIRIN ENTERIC COATED 81 MG TABLET.DR. PO SCH (09:18)
[2020-12-20] MEDS: predniSONE 20 MG TABLET PO SCH (09:21)
[2020-12-20] MEDS: CLOPIDOGREL BISULFATE 75 MG TABLET PO SCH (09:21)
[2020-12-20] MEDS: LISINOPRIL 5 MG TABLET. PO SCH ×2 (09:21→21:04)
[2020-12-20] MEDS: CETIRIZINE HCL 10 MG TABLET. PO SCH (09:22)
[2020-12-20] MEDS: FERROUS SULFATE 325 MG TABLET. PO SCH (09:22)
[2020-12-20] MEDS: SENNOSIDES/DOCUSATE 8.6/50MG TABLET. PO SCH ×2 (09:22→21:04)
[2020-12-20] MEDS: PANTOPRAZOLE 40 MG TABLET.DR. PO SCH (09:22)
[2020-12-20 10:47] VITALS: BP 134/82
--- NOTE | 2020-12-20 11:30 | PDOC ---
PULMONARY PROGRESS NOTES DATE: 12/20/20 TIME: 11:22 Subjective pt. resting on NC no overnight concerns no increased SOA or Cough Vitals Vital Signs Date Time Temp Pulse Resp B/P (MAP) Pulse Ox O2 Delivery O2 Flow Rate FiO2 12/20/20 10:47 98.5 85 18 134/82 (99) 96 Nasal Cannula 3.0 98.5 ROS: No Nausea, No Chest Pain, No Abdominal Pain, No Increase Cough General: Alert, Oriented X4 Lungs: Wheezing Cardiovascular: S1, S2 Abdomen: Soft, Non-tender Extremities: Other Skin: Warm, Dry Labs Laboratory Tests Test 12/18/20 15:30 12/18/20 19:00 12/19/20 06:50 Troponin I Quantitative < 0.017 ng/mL (0.000-0.055) < 0.017 ng/mL (0.000-0.055) White Blood Count 5.7 x10^3/uL (4.0-11.0) Red Blood Count 4.21 x10^6/uL (3.50-5.40) Hemoglobin 13.0 g/dL (12.0-15.5) Hematocrit 38.7 % (36.0-47.0) Mean Corpuscular Volume 92 fL (79-100) Mean Corpuscular Hemoglobin 31 pg (25-35) Mean Corpuscular Hemoglobin Concent 34 g/dL (31-37) Red Cell Distribution Width 14.2 % (11.5-14.5) Platelet Count 234 x10^3/uL (140-400) Neutrophils (%) (Auto) 66 % (31-73) Lymphocytes (%) (Auto) 21 % (24-48) Monocytes (%) (Auto) 13 % (0-9) Eosinophils (%) (Auto) 0 % (0-3) Basophils (%) (Auto) 0 % (0-3) Neutrophils # (Auto) 3.8 x10^3/uL (1.8-7.7) Lymphocytes # (Auto) 1.2 x10^3/uL (1.0-4.8) Monocytes # (Auto) 0.7 x10^3/uL (0.0-1.1) Eosinophils # (Auto) 0.0 x10^3/uL (0.0-0.7) Basophils # (Auto) 0.0 x10^3/uL (0.0-0.2) Sodium Level 147 mmol/L (136-145) Potassium Level 4.0 mmol/L (3.5-5.1) Chloride Level 105 mmol/L (98-107) Carbon Dioxide Level 37 mmol/L (21-32) Anion Gap 5 (6-14) Blood Urea Nitrogen 11 mg/dL (7-20) Creatinine 0.7 mg/dL (0.6-1.0) Estimated GFR (Cockcroft-Gault) 102.6 BUN/Creatinine Ratio 16 (6-20) Glucose Level 109 mg/dL (70-99) Calcium Level 8.6 mg/dL (8.5-10.1) Total Bilirubin 0.2 mg/dL (0.2-1.0) Aspartate Amino Transf (AST/SGOT) 12 U/L (15-37) Alanine Aminotransferase (ALT/SGPT) 13 U/L (14-59) Alkaline Phosphatase 56 U/L (46-116) Total Protein 6.7 g/dL (6.4-8.2) Albumin 3.7 g/dL (3.4-5.0) Albumin/Globulin Ratio 1.2 (1.0-1.7) Medications Active Scripts Medications Dose Route/Sig Max Daily Dose Days Date Category Feosol (Ferrous Sulfate) 325 Mg Tablet 325 Mg PO DAILY 12/18/20 Reported Metformin Hcl Er (Metformin Hcl) 500 Mg Tab.er.24h 1 Tab PO DAILYWSUP 12/18/20 Reported Diclofenac Sodium 75 Mg Tablet.dr 1 Tab PO BID 12/18/20 Reported Estradiol 0.5 Mg Tablet 1 Tab PO DAILY 12/18/20 Reported Lisinopril 5 Mg Tablet 5 Mg PO BID 30 10/24/20 Rx Culturelle (Lactobacillus Rhamnosus Gg) 1 Each Cap.sprink 1 Cap PO BID 30 10/23/20 Rx Breo Ellipta 100-25 Mcg INH (Fluticasone/Vilanterol) 1 Each Blst.w.dev 1 Puff INH DAILY 30 10/23/20 Rx Amlodipine Besylate 10 Mg Tablet 10 Mg PO DAILY 30 10/23/20 Rx Azithromycin Tablet (Azithromycin) 250 Mg Tablet 250 Mg PO DAILY 10/23/20 Rx Oxybutynin Chloride Er (Oxybutynin Chloride) 10 Mg Tab.er.24 1 Tab PO DAILY PRN 10/22/20 Reported Fluticasone Propionate Nasal [place] (Fluticasone Propionate) 16 Gm [place].susp 2 [place] NS DAILY 30 07/10/19 Rx Cetirizine Hcl 10 Mg Tablet 10 Mg PO DAILY 07/10/19 Rx Xanax (Alprazolam) 0.25 Mg Tablet 0.25 Mg PO TID PRN 03/24/19 Reported Protonix (Pantoprazole Sodium) 20 Mg Tablet.dr 40 Mg PO DAILY 01/13/19 Reported Zoloft (Sertraline Hcl) 50 Mg Tablet 1 Tab PO HS 05/10/18 Reported Clopidogrel (Clopidogrel Bisulfate) 75 Mg Tablet 1 Tab PO DAILY 02/25/18 Reported Potassium Chloride (Potassium Chloride) 10 Meq Capsule.er 1 Cap PO DAILY 04/26/15 Rx Singulair Tablet (Montelukast Sodium) 10 Mg Tablet 1 Tab PO HS 04/27/14 Reported Albuterol Sulfate Hfa Inhaler (Albuterol Sulfate) 8.5 Gm Hfa.aer.ad 8.5 Gm IH PRN 07/28/13 Reported Duoneb 0.5 Mg-3 Mg/3 Ml Soln (Ipratropium/Albuterol Sulfate) 3 Ml Ampul.neb 3 Ml IH QID 07/28/13 Reported Aspir 81 (Aspirin) 81 Mg Tablet.dr 81 Mg PO DAILY 07/28/13 Reported Impression . IMPRESSION: 1. Dyspnea secondary to acute exacerbation of chronic obstructive pulmonary disease in a patient who has end-stage chronic obstructive pulmonary disease, on home oxygen at 2 liters on a 24-hour basis. No obvious infection. She may benefit from a 6-minute walk test and the need for more oxygen with activity. 2. Abnormal chest x-ray consistent with chronic obstructive pulmonary disease, but no definite consolidation. Plan . Updated 12/20/20 Continue supplemental oxygen, on 2 liter NC 6 min walk in am Ongoing wheezing, will change steroids to IV NEBS including pulmicort Repeat PFTs as an outpatient. DVT/GI PPX D/W TRACEE ACKERMAN MD Dec 20, 2020 11:30
--- NOTE | 2020-12-20 11:54 | PDOC ---
[facility] PROGRESS NOTE Date of Service DOS: DATE: 12/20/20 TIME: 11:51 Chief Complaint Chief Complaint Shortness of breath History of Present Illness History of Present Illness 12/20/2020 Patient seen and examined at bedside Reports her breathing is about the same as yesterday, does not feel ready to go home as she feels like she would have to come right back On 3 L nasal cannula 6-minute walk test tomorrow 2 doses of IV Solu-Medrol today Pulmonary consulted Plan of care discussed with bedside RN 12/19/2020 Patient seen and evaluated at bedside Reports some improvement in her symptoms since yesterday Currently requiring 3 L oxygen Remains very pleasant Pulmonology consulted Plan for 6-minute walk test tomorrow Patient is a 60-year-old -[place] female presenting today with increased shortness of breath. Patient has a long history of COPD, is a former smoker, that has gotten much worse over the past year according to her. She says she has been seen by her PCP and rehabilitation therapy technician and will get some improvement initially with her symptoms however her symptoms always return shortly after her oral steroids are discontinued. Reports complete compliance with her medications. She describes her symptoms as cough, shortness of breath, easy fatigue with exertion. Denies any sort of fevers, chest pain, headaches, nausea or vomiting. Patient also complaining of some lower back pain at she says it is chronic due to sciataca.. Vitals/I&O Vitals/I&O: Vital Signs Date Time Temp Pulse Resp B/P (MAP) Pulse Ox O2 Delivery O2 Flow Rate FiO2 12/20/20 11:30 97 Nasal Cannula 3.0 12/20/20 10:47 98.5 85 18 134/82 (99) 98.5 I & O 12/19/20 12/19/20 12/20/20 15:00 23:00 07:00 Intake Total 840 ml 480 ml 560 ml Output Total 600 ml 900 ml 350 ml Balance 240 ml -420 ml 210 ml Physical Exam General: Alert, Oriented X3, Cooperative, No acute distress, mild distress Heart: Regular rate, Normal S1, Normal S2 Lungs: Wheezing, Other (on 3L NC) Abdomen: Normal bowel sounds, Soft, No tenderness Extremities: No clubbing, Normal pulses, Other (Mild lower extremity edema) Skin: No rashes, No significant lesion Review of Systems Review of Systems: Planes of shortness of breath especially with exertion otherwise no complaints Assessment and Plan Assessmemt and Plan Problems Medical Problems: (1) Acute respiratory failure Status: Acute Patient is a 60-year-old -[place] female admitted for COPD exacerbation COPD exacerbation, acute hypoxic respiratory failure -Long history of COPD -On home inhalers and reports compliance with him; continue duo nebs add Pulmicort -Will give 2 doses Solu Medrol today -6min walk test tomorrow -Oxygen as needed -Pulmonary team consulted Hypertension, anxiety, allergic rhinitis -Home medications resumed Problems: (1) Shortness of breath (2) COPD exacerbation (3) Acute on chronic respiratory failure with hypoxia and hypercapnia (4) Hypertension, accelerated Comment Review of Relevant I have reviewed the following items paulette (where applicable) has been applied. Medications: Current Medications Medications (Trade) Dose Ordered Sig/Umang Route PRN Reason Start Time Stop Time Status Last Admin Dose Admin Hydrocortisone (Cortizone-10) 1 ebonie TID TP 12/19/20 14:00 12/20/20 09:16 Budesonide (Pulmicort) 0.5 mg RTBID NEB 12/19/20 20:00 12/20/20 07:06 Guaifenesin (Robitussin Dm) 10 ml PRN Q6HRS PRN PO COUGH 12/19/20 17:30 12/19/20 17:52 Justifications for Admission Other Justification Acute respiratory failure with hypoxia, acute COPD exacerbation ZEB VERA MD Dec 20, 2020 11:54
--- NOTE | 2020-12-20 12:10 | NUR ---
SS following up with discharge planning. SS reviewed pt chart and discussed with pt RN. Pt is currently requiring oxygen at three liters nasal canula. Pt has home oxygen. Six minute walk ordered by Pulmonology. Discharge plan is to home when medically ready. SS will continue to follow for discharge planning.
[2020-12-20 14:38] VITALS: BP 111/68
[2020-12-20 19:25] VITALS: BP 108/66
[2020-12-20] MEDS ORDERED: methylPREDNISolone SOD SUCC PF 40 MG/ML VIAL. IV SCH (21:00)
[2020-12-20] MEDS: MONTELUKAST SODIUM 10 MG TABLET. PO SCH (21:04)
[2020-12-20] MEDS: SERTRALINE 50 MG TABLET. PO SCH (21:04)
[2020-12-20 23:30] VITALS: BP 134/71
[2020-12-21 04:00] VITALS: BP 137/85
[2020-12-21] MEDS: HEPARIN for SUB-Q USE 5,000 UNIT/ML VIAL. SQ SCH ×3 (06:04→21:22)
--- NOTE | 2020-12-21 07:08 | PDOC ---
PULMONARY PROGRESS NOTES DATE: 12/21/20 TIME: 07:07 Subjective on 02 2 lpm sob cough better on home 02 2lpm Vitals Vital Signs Date Time Temp Pulse Resp B/P (MAP) Pulse Ox O2 Delivery O2 Flow Rate FiO2 12/21/20 04:00 97.8 90 21 137/85 (102) 91 Nasal Cannula 2.0 97.8 ROS: No Nausea, No Chest Pain, No Abdominal Pain, No Increase Cough General: Alert, Oriented X4 Lungs: Other (b lat diminished bs) Cardiovascular: S1, S2 Abdomen: Soft, Non-tender Neuro Exam: Alert, Oriented Extremities: Other Skin: Warm, Dry Medications Active Scripts Medications Dose Route/Sig Max Daily Dose Days Date Category Feosol (Ferrous Sulfate) 325 Mg Tablet 325 Mg PO DAILY 12/18/20 Reported Metformin Hcl Er (Metformin Hcl) 500 Mg Tab.er.24h 1 Tab PO DAILYWSUP 12/18/20 Reported Diclofenac Sodium 75 Mg Tablet.dr 1 Tab PO BID 12/18/20 Reported Estradiol 0.5 Mg Tablet 1 Tab PO DAILY 12/18/20 Reported Lisinopril 5 Mg Tablet 5 Mg PO BID 30 10/24/20 Rx Culturelle (Lactobacillus Rhamnosus Gg) 1 Each Cap.sprink 1 Cap PO BID 30 10/23/20 Rx Breo Ellipta 100-25 Mcg INH (Fluticasone/Vilanterol) 1 Each Blst.w.dev 1 Puff INH DAILY 30 10/23/20 Rx Amlodipine Besylate 10 Mg Tablet 10 Mg PO DAILY 30 10/23/20 Rx Azithromycin Tablet (Azithromycin) 250 Mg Tablet 250 Mg PO DAILY 7 10/23/20 Rx Oxybutynin Chloride Er (Oxybutynin Chloride) 10 Mg Tab.er.24 1 Tab PO DAILY PRN 10/22/20 Reported Fluticasone Propionate Nasal [place] (Fluticasone Propionate) 16 Gm [place].susp 2 [place] NS DAILY 30 07/10/19 Rx Cetirizine Hcl 10 Mg Tablet 10 Mg PO DAILY 07/10/19 Rx Xanax (Alprazolam) 0.25 Mg Tablet 0.25 Mg PO TID PRN 03/24/19 Reported Protonix (Pantoprazole Sodium) 20 Mg Tablet.dr 40 Mg PO DAILY 01/13/19 Reported Zoloft (Sertraline Hcl) 50 Mg Tablet 1 Tab PO HS 05/10/18 Reported Clopidogrel (Clopidogrel Bisulfate) 75 Mg Tablet 1 Tab PO DAILY 02/25/18 Reported Potassium Chloride (Potassium Chloride) 10 Meq Capsule.er 1 Cap PO DAILY 04/26/15 Rx Singulair Tablet (Montelukast Sodium) 10 Mg Tablet 1 Tab PO HS 04/27/14 Reported Albuterol Sulfate Hfa Inhaler (Albuterol Sulfate) 8.5 Gm Hfa.aer.ad 8.5 Gm IH PRN 07/28/13 Reported Duoneb 0.5 Mg-3 Mg/3 Ml Soln (Ipratropium/Albuterol Sulfate) 3 Ml Ampul.neb 3 Ml IH QID 07/28/13 Reported Aspir 81 (Aspirin) 81 Mg Tablet.dr 81 Mg PO DAILY 07/28/13 Reported Impression . IMPRESSION: 1. Dyspnea secondary to acute exacerbation of chronic obstructive pulmonary disease in a patient who has end-stage chronic obstructive pulmonary disease, on home oxygen at 2 liters on a 24-hour basis. No obvious infection. She may benefit from a 6-minute walk test and the need for more oxygen with activity. 2. Abnormal chest x-ray consistent with chronic obstructive pulmonary disease, but no definite consolidation. Plan . Updated 12/21/20 Continue supplemental oxygen, on 2 liter NC on home 02 2lpm 6 min walk at dc change solumedrol to 40 bid NEBS BD ICS pulmicort Repeat PFTs as an outpatient. DVT/GI PPX hep sx D/W RN, pt TRINY CHEN MD Dec 21, 2020 07:08
[2020-12-21] MEDS: IPRATRPIUM/ALBUTEROL 0.5/2.5MG 3 ML NEBU. NEB SCH ×5 (07:40→22:00)
[2020-12-21] MEDS: BUDESONIDE 0.5 MG/2 ML NEBU. NEB SCH ×2 (07:40→20:32)
[2020-12-21 08:00] VITALS: BP 128/64
[2020-12-21] MEDS: FLUTICASONE 50MCG/NASAL SPRAY 16GM BOTTLE. NS SCH (09:04)
[2020-12-21] MEDS: POTASSIUM CHLORIDE 10 MEQ TABLET.ER. PO SCH (09:05)
[2020-12-21] MEDS: ASPIRIN ENTERIC COATED 81 MG TABLET.DR. PO SCH (09:05)
[2020-12-21] MEDS: FERROUS SULFATE 325 MG TABLET. PO SCH (09:05)
[2020-12-21] MEDS: SENNOSIDES/DOCUSATE 8.6/50MG TABLET. PO SCH ×2 (09:05→21:15)
[2020-12-21] MEDS: LISINOPRIL 5 MG TABLET. PO SCH ×2 (09:06→21:15)
[2020-12-21] MEDS: CLOPIDOGREL BISULFATE 75 MG TABLET PO SCH (09:06)
[2020-12-21] MEDS: methylPREDNISolone SOD SUCC PF 40 MG/ML VIAL. IV SCH ×2 (09:08→21:16)
[2020-12-21] MEDS: HYDROCORTISONE 1% LOTION BOTTLE. TP SCH ×3 (09:13→21:16)
[2020-12-21] MEDS: CETIRIZINE HCL 10 MG TABLET. PO SCH (09:17)
[2020-12-21 11:00] VITALS: BP 148/85
[2020-12-21 15:00] VITALS: BP 138/74
--- NOTE | 2020-12-21 15:24 | PDOC ---
[facility] [facility] PROGRESS NOTE Date of Service DOS: DATE: 12/21/20 TIME: 15:22 Chief Complaint Chief Complaint Shortness of breath History of Present Illness History of Present Illness 12/21/2020 Patient seen and examined at bedside Responded well to IV Solu-Medrol yesterday and reports some improvement this morning we will continue the IV Solu-Medrol On 2 L nasal cannula which is her home dose She still does not feel ready for discharge as she is not quite back to her baseline Discharge maybe tomorrow or Wednesday End of care discussed with bedside RN 12/20/2020 Patient seen and examined at bedside Reports her breathing is about the same as yesterday, does not feel ready to go home as she feels like she would have to come right back On 3 L nasal cannula 6-minute walk test tomorrow 2 doses of IV Solu-Medrol today Pulmonary consulted Plan of care discussed with bedside RN 12/19/2020 Patient seen and evaluated at bedside Reports some improvement in her symptoms since yesterday Currently requiring 3 L oxygen Remains very pleasant Pulmonology consulted Plan for 6-minute walk test tomorrow Patient is a 60-year-old -[place] female presenting today with increased shortness of breath. Patient has a long history of COPD, is a former smoker, that has gotten much worse over the past year according to her. 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 Reports complete compliance with her medications. She describes her symptoms as cough, shortness of breath, easy fatigue with exertion. Denies any sort of fevers, chest pain, headaches, nausea or vomiting. Patient also complaining of some lower back pain at she says it is chronic due to sciataca.. Vitals/I&O Vitals/I&O: Vital Signs Date Time Temp Pulse Resp B/P (MAP) Pulse Ox O2 Delivery O2 Flow Rate FiO2 12/21/20 11:00 98.6 94 21 148/85 (106) 94 Nasal Cannula 2.0 98.6 I & O 12/20/20 12/20/20 12/21/20 15:00 23:00 07:00 Intake Total 810 ml 480 ml 100 ml Output Total 650 ml 1200 ml 700 ml Balance 160 ml -720 ml -600 ml Physical Exam General: Alert, Oriented X3, Cooperative, No acute distress, mild distress Heart: Regular rate, Normal S1, Normal S2 Lungs: Other (b lat diminished bs) Abdomen: Normal bowel sounds, Soft, No tenderness Extremities: No clubbing, Normal pulses, Other (Mild lower extremity edema) Skin: No rashes, No significant lesion Review of Systems Review of Systems: Shortness of breath otherwise no complaint Assessment and Plan Assessmemt and Plan Problems Medical Problems: (1) Acute respiratory failure Status: Acute Medical Problems: (1) Acute respiratory failure Status: Acute Patient is a 60-year-old -[place] female admitted for COPD exacerbation COPD exacerbation, acute hypoxic respiratory failure -Long history of COPD -On home inhalers and reports compliance with him; continue duo nebs add Pulmicort -Continue Solu-Medrol at 40 IV twice daily -6min walk test tomorrow -Oxygen as needed -Pulmonary team consulted Hypertension, anxiety, allergic rhinitis -Home medications resumed Problems: (1) Shortness of breath (2) COPD exacerbation (3) Acute on chronic respiratory failure with hypoxia and hypercapnia (4) Hypertension, accelerated Comment Review of Relevant I have reviewed the following items paulette (where applicable) has been applied. Medications: Current Medications Medications (Trade) Dose Ordered Sig/Umang Route PRN Reason Start Time Stop Time Status Last Admin Dose Admin Methylprednisolone Sodium Succinate (SOLU-Medrol 40MG VIAL) 60 mg Q12HR IV 12/20/20 21:00 12/21/20 07:08 DC 12/20/20 21:07 Methylprednisolone Sodium Succinate (SOLU-Medrol 40MG VIAL) 40 mg Q12HR IV 12/21/20 09:00 12/21/20 09:08 Justifications for Admission Other Justification Acute respiratory failure with hypoxia, acute COPD exacerbation ZEB VERA MD Dec 21, 2020 15:24
[2020-12-21 19:22] VITALS: BP 132/77
[2020-12-21] MEDS: MONTELUKAST SODIUM 10 MG TABLET. PO SCH (21:15)
[2020-12-21] MEDS: SERTRALINE 50 MG TABLET. PO SCH (21:15)
[2020-12-21 22:37] VITALS: BP 131/81
[2020-12-22 03:24] VITALS: BP 145/81
[2020-12-22 06:15] VITALS: BP 142/85
[2020-12-22] MEDS: HEPARIN for SUB-Q USE 5,000 UNIT/ML VIAL. SQ SCH ×3 (06:45→23:16)
[2020-12-22] MEDS ORDERED: FUROSEMIDE 20 MG/2 ML VIAL. IVP STA (07:29)
[2020-12-22] MEDS: BUDESONIDE 0.5 MG/2 ML NEBU. NEB SCH ×2 (07:29→20:25)
[2020-12-22] MEDS: IPRATRPIUM/ALBUTEROL 0.5/2.5MG 3 ML NEBU. NEB SCH ×5 (07:29→22:00)
--- NOTE | 2020-12-22 07:32 | PDOC ---
PULMONARY PROGRESS NOTES DATE: 12/22/20 TIME: 07:29 Subjective on 02 2 lpm sob cough better has le edema is on diuretics at home on home 02 2lpm Vitals Vital Signs Date Time Temp Pulse Resp B/P (MAP) Pulse Ox O2 Delivery O2 Flow Rate FiO2 12/22/20 06:15 99.4 75 18 142/85 (104) 93 Nasal Cannula 2.0 99.4 ROS: No Nausea, No Chest Pain, No Abdominal Pain, No Increase Cough General: Alert, Oriented X4 Lungs: Other (b lat diminished bs) Cardiovascular: S1, S2 Abdomen: Soft, Non-tender Neuro Exam: Alert, Oriented Extremities: Other (+edema) Skin: Warm, Dry Medications Active Scripts Medications Dose Route/Sig Max Daily Dose Days Date Category Feosol (Ferrous Sulfate) 325 Mg Tablet 325 Mg PO DAILY 12/18/20 Reported Metformin Hcl Er (Metformin Hcl) 500 Mg Tab.er.24h 1 Tab PO DAILYWSUP 12/18/20 Reported Diclofenac Sodium 75 Mg Tablet.dr 1 Tab PO BID 12/18/20 Reported Estradiol 0.5 Mg Tablet 1 Tab PO DAILY 12/18/20 Reported Lisinopril 5 Mg Tablet 5 Mg PO BID 30 10/24/20 Rx Culturelle (Lactobacillus Rhamnosus Gg) 1 Each Cap.sprink 1 Cap PO BID 30 10/23/20 Rx Breo Ellipta 100-25 Mcg INH (Fluticasone/Vilanterol) 1 Each Blst.w.dev 1 Puff INH DAILY 30 10/23/20 Rx Amlodipine Besylate 10 Mg Tablet 10 Mg PO DAILY 30 10/23/20 Rx Azithromycin Tablet (Azithromycin) 250 Mg Tablet 250 Mg PO DAILY 7 10/23/20 Rx Oxybutynin Chloride Er (Oxybutynin Chloride) 10 Mg Tab.er.24 1 Tab PO DAILY PRN 10/22/20 Reported Fluticasone Propionate Nasal [place] (Fluticasone Propionate) 16 Gm [place].susp 2 [place] NS DAILY 30 07/10/19 Rx Cetirizine Hcl 10 Mg Tablet 10 Mg PO DAILY 07/10/19 Rx Xanax (Alprazolam) 0.25 Mg Tablet 0.25 Mg PO TID PRN 03/24/19 Reported Protonix (Pantoprazole Sodium) 20 Mg Tablet.dr 40 Mg PO DAILY 01/13/19 Reported Zoloft (Sertraline Hcl) 50 Mg Tablet 1 Tab PO HS 05/10/18 Reported Clopidogrel (Clopidogrel Bisulfate) 75 Mg Tablet 1 Tab PO DAILY 02/25/18 Reported Potassium Chloride (Potassium Chloride) 10 Meq Capsule.er 1 Cap PO DAILY 04/26/15 Rx Singulair Tablet (Montelukast Sodium) 10 Mg Tablet 1 Tab PO HS 04/27/14 Reported Albuterol Sulfate Hfa Inhaler (Albuterol Sulfate) 8.5 Gm Hfa.aer.ad 8.5 Gm IH PRN 07/28/13 Reported Duoneb 0.5 Mg-3 Mg/3 Ml Soln (Ipratropium/Albuterol Sulfate) 3 Ml Ampul.neb 3 Ml IH QID 07/28/13 Reported Aspir 81 (Aspirin) 81 Mg Tablet.dr 81 Mg PO DAILY 07/28/13 Reported Impression . IMPRESSION: 1. Dyspnea secondary to acute exacerbation of chronic obstructive pulmonary disease in a patient who has end-stage chronic obstructive pulmonary disease, on home oxygen at 2 liters on a 24-hour basis. No obvious infection. She may benefit from a 6-minute walk test and the need for more oxygen with activity. 2. Abnormal chest x-ray consistent with chronic obstructive pulmonary disease, but no definite consolidation. Plan . Updated 12/22/20 Continue supplemental oxygen, on 2 liter NC on home 02 2lpm has le edema is on diuretics at home lasix 20 mg iv now 6 min walk 2 lpm at rest 3 with activity change solumedrol to pred 40 mg daily w taper by 10 mg q 3 d NEBS BD ICS pulmicort Repeat PFTs as an outpatient. DVT/GI PPX hep sx D/W RN, pt TRINY CHEN MD Dec 22, 2020 07:32
[2020-12-22] MEDS: HYDROCORTISONE 1% LOTION BOTTLE. TP SCH ×3 (09:00→23:13)
[2020-12-22] MEDS: SENNOSIDES/DOCUSATE 8.6/50MG TABLET. PO SCH ×2 (09:00→23:14)
[2020-12-22] MEDS: FLUTICASONE 50MCG/NASAL SPRAY 16GM BOTTLE. NS SCH (09:11)
[2020-12-22] MEDS: POTASSIUM CHLORIDE 10 MEQ TABLET.ER. PO SCH (09:12)
[2020-12-22] MEDS: LISINOPRIL 5 MG TABLET. PO SCH ×2 (09:14→23:14)
[2020-12-22] MEDS: FERROUS SULFATE 325 MG TABLET. PO SCH (09:14)
[2020-12-22] MEDS: ASPIRIN ENTERIC COATED 81 MG TABLET.DR. PO SCH (09:14)
[2020-12-22] MEDS: predniSONE 20 MG TABLET PO SCH (09:14)
[2020-12-22] MEDS: CLOPIDOGREL BISULFATE 75 MG TABLET PO SCH (09:14)
[2020-12-22] MEDS: CETIRIZINE HCL 10 MG TABLET. PO SCH (09:14)
[2020-12-22] MEDS: PANTOPRAZOLE 40 MG TABLET.DR. PO SCH (09:15)
[2020-12-22] MEDS: SODIUM CHL/ALOE VERA NASAL GEL 14.1GM TUBE. NS PRN (09:23)
[2020-12-22 11:00] VITALS: BP 109/77
--- NOTE | 2020-12-22 12:56 | PDOC ---
[facility] PROGRESS NOTE Date of Service DOS: DATE: 12/22/20 TIME: 12:53 Chief Complaint Chief Complaint Shortness of breath History of Present Illness History of Present Illness 12/22/2020 Patient seen and examined at bedside this morning Initially when seen patient reported her breathing had improved she was feeling better; return to evaluate her in the early afternoon and she said she was not f eeling like her breathing was earlier and she did have a very low-grade fever per her bedside nurse. Well continue to watch her for another day Pulmonary adding Lasix today due to some peripheral edema. Prednisone taper start today Plan of care discussed with bedside nurse 12/21/2020 Patient seen and examined at bedside Responded well to IV Solu-Medrol yesterday and reports some improvement this morning we will continue the IV Solu-Medrol On 2 L nasal cannula which is her home dose She still does not feel ready for discharge as she is not quite back to her baseline Discharge maybe tomorrow or Wednesday End of care discussed with bedside RN 12/20/2020 Patient seen and examined at bedside Reports her breathing is about the same as yesterday, does not feel ready to go home as she feels like she would have to come right back On 3 L nasal cannula 6-minute walk test tomorrow 2 doses of IV Solu-Medrol today Pulmonary consulted Plan of care discussed with bedside RN 12/19/2020 Patient seen and evaluated at bedside Reports some improvement in her symptoms since yesterday Currently requiring 3 L oxygen Remains very pleasant Pulmonology consulted Plan for 6-minute walk test tomorrow Patient is a 60-year-old -[place]og[place] female presenting today with increased shortness of breath. Patient has a long history of COPD, is a former smoker, that has gotten much worse over the past year according to her. 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 Reports complete compliance with her medications. She describes her symptoms as cough, shortness of breath, easy fatigue with exertion. Denies any sort of fevers, chest pain, headaches, nausea or vomiting. Patient also complaining of some lower back pain at she says it is chronic due to sciataca.. Vitals/I&O Vitals/I&O: Vital Signs Date Time Temp Pulse Resp B/P (MAP) Pulse Ox O2 Delivery O2 Flow Rate FiO2 12/22/20 11:38 95 Nasal Cannula 2.0 12/22/20 11:00 99.3 86 22 109/77 (88) 99.3 I & O 12/21/20 12/21/20 12/22/20 15:00 23:00 07:00 Intake Total 480 ml 530 ml Output Total 300 ml 1400 ml 650 ml Balance 180 ml -1400 ml -120 ml Physical Exam General: Alert, Oriented X3, Cooperative, No acute distress, mild distress Heart: Regular rate, Normal S1, Normal S2 Lungs: Other (b lat diminished bs) Abdomen: Normal bowel sounds, Soft, No tenderness Extremities: No clubbing, Normal pulses, Other (Mild lower extremity edema) Skin: No rashes, No significant lesion Review of Systems Review of Systems: Complaining of cough shortness of breath, fatigue. Otherwise no complaints Assessment and Plan Assessmemt and Plan Problems Medical Problems: (1) Acute respiratory failure Status: Acute Medical Problems: (1) Acute respiratory failure Status: Acute Patient is a 60-year-old -[place]og[place] female admitted for COPD exacerbation COPD exacerbation, acute hypoxic respiratory failure -Long history of COPD -On home inhalers and reports compliance with him; continue duo nebs add Pulmicort -d/c Solumedrol and start Prednisone taper today -Oxygen as needed -Pulmonary team consulted --> adding lasix 12/22 Hypertension, anxiety, allergic rhinitis -Home medications resumed Problems: (1) Shortness of breath (2) COPD exacerbation (3) Acute on chronic respiratory failure with hypoxia and hypercapnia (4) Hypertension, accelerated Comment Review of Relevant I have reviewed the following items paulette (where applicable) has been applied. Medications: Current Medications Medications (Trade) Dose Ordered Sig/Umang Route PRN Reason Start Time Stop Time Status Last Admin Dose Admin Furosemide (Lasix) 20 mg 1X STAT IVP 12/22/20 07:29 12/22/20 07:34 DC 12/22/20 09:16 Prednisone (Prednisone) 40 mg DAILY PO 12/22/20 09:00 12/22/20 09:14 Justifications for Admission Other Justification Acute respiratory failure with hypoxia, acute COPD exacerbation ZEB VERA MD Dec 22, 2020 12:56
[2020-12-22 15:00] VITALS: BP 118/79
[2020-12-22 19:20] VITALS: BP 125/79
[2020-12-22 22:21] VITALS: BP 126/85
[2020-12-22] MEDS: MONTELUKAST SODIUM 10 MG TABLET. PO SCH (23:14)
[2020-12-22] MEDS: SERTRALINE 50 MG TABLET. PO SCH (23:14)
[2020-12-23 02:23] VITALS: BP 129/80
[2020-12-23] MEDS: HEPARIN for SUB-Q USE 5,000 UNIT/ML VIAL. SQ SCH ×2 (06:00→14:00)
[2020-12-23 06:03] VITALS: BP 121/81
[2020-12-23] MEDS: BUDESONIDE 0.5 MG/2 ML NEBU. NEB SCH (07:37)
[2020-12-23] MEDS: IPRATRPIUM/ALBUTEROL 0.5/2.5MG 3 ML NEBU. NEB SCH ×3 (07:37→15:48)
--- NOTE | 2020-12-23 08:44 | PDOC ---
PROGRESS NOTES Date of Service: DATE: 12/23/20 TIME: 08:43 Chief Complaint Chief Complaint IMPRESSION Shortness of breath ACUTE COPD exacerbation, acute hypoxic respiratory failure -Long history of COPD DuoNebs PO steroids TAPER Oxygen as needed Pulmonary team consulted Hypertension, anxiety, allergic rhinitis Home medications resumed History of Present Illness History of Present Illness 12/23/2020 Patient seen and examined at bedside reported her breathing had improved she was feeling better; Pulmonary adding Lasix today due to some peripheral edema. Prednisone taper start Plan of care discussed with bedside nurse D/W DR LANA MONTERROSO TO D/C TODAY D/C PLANNING 24 MIN 12/22/2020 Patient seen and examined at bedside this morning Initially when seen patient reported her breathing had improved she was feeling better; return to evaluate her in the early afternoon and she said she was not feeling like her breathing was earlier and she did have a very low-grade fever per her bedside nurse. Well continue to watch her for another day Pulmonary adding Lasix today due to some peripheral edema. Prednisone taper start today Plan of care discussed with bedside nurse 12/21/2020 Patient seen and examined at bedside Responded well to IV Solu-Medrol yesterday and reports some improvement this morning we will continue the IV Solu-Medrol On 2 L nasal cannula which is her home dose She still does not feel ready for discharge as she is not quite back to her baseline Discharge maybe tomorrow or Wednesday End of care discussed with bedside RN 12/20/2020 Patient seen and examined at bedside Reports her breathing is about the same as yesterday, does not feel ready to go home as she feels like she would have to come right back On 3 L nasal cannula 6-minute walk test tomorrow 2 doses of IV Solu-Medrol today Pulmonary consulted Plan of care discussed with bedside RN 12/19/2020 Patient seen and evaluated at bedside Reports some improvement in her symptoms since yesterday Currently requiring 3 L oxygen Remains very pleasant Pulmonology consulted Plan for 6-minute walk test tomorrow Patient is a 60-year-old -[place] female presenting today with increased shortness of breath. Patient has a long history of COPD, is a former smoker, that has gotten much worse over the past year according to her. 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 Reports complete compliance with her medications. She describes her symptoms as cough, shortness of breath, easy fatigue with exertion. Denies any sort of fevers, chest pain, headaches, nausea or vomiting. Patient also complaining of some lower back pain at she says it is chronic due to sciataca.. Vitals Vitals Vital Signs Date Time Temp Pulse Resp B/P (MAP) Pulse Ox O2 Delivery O2 Flow Rate FiO2 12/23/20 07:53 Nasal Cannula 2.0 12/23/20 07:39 96 12/23/20 06:03 98.3 71 18 121/81 (94) 98.3 Physical Exam General: Alert, Oriented X3, Cooperative, No acute distress, mild distress Heart: Regular rate, Normal S1, Normal S2 Lungs: Other (b lat diminished bs) Abdomen: Normal bowel sounds, Soft, No tenderness Extremities: No clubbing, No cyanosis, Normal pulses, Other (Mild lower extremity edema) Skin: No rashes, No significant lesion Assessment and Plan Assessmemt and Plan Problems Medical Problems: (1) Acute respiratory failure Status: Acute Comment Review of Relevant I have reviewed the following items paulette (where applicable) has been applied. Labs Microbiology 12/18/20 Blood Culture - Preliminary, Resulted NO GROWTH AFTER 4 DAYS Medications Current Medications Methylprednisolone Sodium Succinate (SOLU-Medrol 125MG VIAL) 125 mg 1X ONCE IV Last administered on 12/18/20at 11:10; Start 12/18/20 at 10:45; Stop 12/18/20 at 10:46; Status DC Albuterol/ Ipratropium (Duoneb) 3 ml 1X ONCE NEB Last administered on 12/18/20at 10:55; Start 12/18/20 at 10:45; Stop 12/18/20 at 10:46; Status DC Ondansetron HCl (Zofran) 4 mg PRN Q6HRS PRN IVP NAUSEA/VOMITING; Start 12/18/20 at 13:00 Senna/Docusate Sodium (Senna Plus) 1 tab BID PO Last administered on 12/22/20at 23:14; Start 12/18/20 at 21:00 Heparin Sodium (Porcine) (Heparin Sodium) 5,000 unit Q8HRS SQ Last administered on 12/22/20at 23:16; Start 12/18/20 at 22:00 Ondansetron HCl (Zofran) 4 mg PRN Q8HRS PRN IV NAUSEA/VOMITING; Start 12/18/20 at 13:00; Stop 12/19/20 at 12:59; Status UNV Fentanyl Citrate (Fentanyl 2ml Vial) 50 mcg PRN Q1HR PRN IV PAIN; Start 12/18/20 at 13:00; Stop 12/18/20 at 13:06; Status DC Acetaminophen (Tylenol) 650 mg PRN Q4HRS PRN PO FEVER > 100.3'F; Start 12/18/20 at 13:00; Stop 12/19/20 at 12:59; Status DC Albuterol/ Ipratropium (Duoneb) 3 ml RTQID NEB ; Start 12/18/20 at 16:00; Stop 12/18/20 at 13:12; Status DC Albuterol/ Ipratropium (Duoneb) 3 ml Q4HRS W/A NEB Last administered on 12/23/20at 07:37; Start 12/18/20 at 14:00 Budesonide (Pulmicort) 0.5 mg DAILY NEB Last administered on 12/19/20at 07:16; Start 12/19/20 at 09:00; Stop 12/19/20 at 10:45; Status DC Alprazolam (Xanax) 0.25 mg PRN TID PRN PO ANXIETY / AGITATION; Start 12/18/20 at 18:30 Amlodipine Besylate (Norvasc) 10 mg DAILY PO Last administered on 12/22/20at 09:13; Start 12/19/20 at 09:00 Aspirin (Ecotrin) 81 mg DAILY PO Last administered on 12/22/20at 09:14; Start 12/19/20 at 09:00 Cetirizine HCl (ZyrTEC) 10 mg DAILY PO Last administered on 12/22/20at 09:14; Start 12/19/20 at 09:00 Clopidogrel Bisulfate (Plavix) 75 mg DAILY PO Last administered on 12/22/20at 09:14; Start 12/19/20 at 09:00 Ferrous Sulfate (Feosol) 325 mg DAILY PO Last administered on 12/22/20 09:14; Start 12/19/20 at 09:00 Fluticasone Propionate (Flonase) 2 spray DAILY NS Last administered on 12/22/20at 09:11; Start 12/19/20 at 09:00 Lisinopril (Prinivil) 5 mg BID PO Last administered on 12/22/20at 23:14; Start 12/18/20 at 21:00 Montelukast Sodium (Singulair) 10 mg HS PO Last administered on 12/22/20 23:14; Start 12/18/20 at 21:00 Potassium Chloride (Klor-Con) 10 meq DAILY PO Last administered on 12/22/20 09:12; Start 12/19/20 at 09:00 Sertraline HCl (Zoloft) 50 mg HS PO Last administered on 12/22/20at 23:14; Start 12/18/20 at 21:00 Oxybutynin Chloride (Ditropan) 5 mg PRN BID PRN PO BLADDER URGENCY; Start 12/18/20 at 19:00 Pantoprazole Sodium (Protonix) 40 mg DAILYAC PO Last administered on 12/22/20at 09:15; Start 12/19/20 at 07:30 Prednisone (Prednisone) 40 mg DAILY PO Last administered on 12/20/20at 09:21; Start 12/19/20 at 09:00; Stop 12/20/20 at 11:22; Status DC Hydrocortisone (Cortizone-10) 1 ebonie TID TP Last administered on 12/22/20at 23:13; Start 12/19/20 at 14:00 Sodium Chloride ([place] Saline Nasal) 1 ebonie PRN DAILY PRN NS NASAL CONGESTION Last administered on 12/22/20at 09:23; Start 12/19/20 at 10:00 Budesonide (Pulmicort) 0.5 mg RTBID NEB Last administered on 12/23/20at 07:37; Start 12/19/20 at 20:00 Tramadol HCl (Ultram) 50 mg PRN Q6HRS PRN PO MILD TO MODERATE PAIN; Start 12/19/20 at 17:30 Acetaminophen (Tylenol) 650 mg PRN Q6HRS PRN PO MILD PAIN / TEMP > 100.3'F; Start 12/19/20 at 17:30 Guaifenesin (Robitussin Dm) 10 ml PRN Q6HRS PRN PO COUGH Last administered on 12/19/20at 17:52; Start 12/19/20 at 17:30 Methylprednisolone Sodium Succinate (SOLU-Medrol 40MG VIAL) 60 mg Q12HR IV Last administered on 12/20/20at 21:07; Start 12/20/20 at 21:00; Stop 12/21/20 at 07:08; Status DC Methylprednisolone Sodium Succinate (SOLU-Medrol 40MG VIAL) 40 mg Q12HR IV Last administered on 12/21/20at 21:16; Start 12/21/20 at 09:00; Stop 12/22/20 at 07:33; Status DC Furosemide (Lasix) 20 mg 1X STAT IVP Last administered on 12/22/20at 09:16; Start 12/22/20 at 07:29; Stop 12/22/20 at 07:34; Status DC Prednisone (Prednisone) 40 mg DAILY PO Last administered on 12/22/20at 09:14; Start 12/22/20 at 09:00 Active Scripts Active Lisinopril 5 Mg Tablet 5 Mg PO BID 30 Days Culturelle (Lactobacillus Rhamnosus Gg) 1 Each Cap.sprink 1 Cap PO BID 30 Days Breo Ellipta 100-25 Mcg INH (Fluticasone/Vilanterol) 1 Each Blst.w.dev 1 Puff INH DAILY 30 Days Amlodipine Besylate 10 Mg Tablet 10 Mg PO DAILY 30 Days Azithromycin Tablet (Azithromycin) 250 Mg Tablet 250 Mg PO DAILY 7 Days Fluticasone Propionate Nasal [place] (Fluticasone Propionate) 16 Gm [place].susp 2 [place] NS DAILY 30 Days Cetirizine Hcl 10 Mg Tablet 10 Mg PO DAILY Potassium Chloride (Potassium Chloride) 10 Meq Capsule.er 1 Cap PO DAILY Reported Feosol (Ferrous Sulfate) 325 Mg Tablet 325 Mg PO DAILY Metformin Hcl Er (Metformin Hcl) 500 Mg Tab.er.24h 1 Tab PO DAILYWSUP Diclofenac Sodium 75 Mg Tablet. 1 Tab PO BID Estradiol 0.5 Mg Tablet 1 Tab PO DAILY Oxybutynin Chloride Er (Oxybutynin Chloride) 10 Mg Tab.er.24 1 Tab PO DAILY PRN Xanax (Alprazolam) 0.25 Mg Tablet 0.25 Mg PO TID PRN Protonix (Pantoprazole Sodium) 20 Mg Tablet.dr 40 Mg PO DAILY Zoloft (Sertraline Hcl) 50 Mg Tablet 1 Tab PO HS Clopidogrel (Clopidogrel Bisulfate) 75 Mg Tablet 1 Tab PO DAILY Singulair Tablet (Montelukast Sodium) 10 Mg Tablet 1 Tab PO HS Albuterol Sulfate Hfa Inhaler (Albuterol Sulfate) 8.5 Gm Hfa.aer.ad 8.5 Gm IH PRN Duoneb 0.5 Mg-3 Mg/3 Ml Soln (Ipratropium/Albuterol Sulfate) 3 Ml Ampul.neb 3 Ml IH QID Aspir 81 (Aspirin) 81 Mg Tablet.dr 81 Mg PO DAILY Vitals/I & O Vital Sign - Last 24 Hours 12/22/20 12/22/20 12/22/20 12/22/20 09:13 09:14 11:00 11:38 Temp 99.3 99.3 Pulse 83 80 86 Resp 22 B/P (MAP) 118/74 118/74 109/77 (88) Pulse Ox 95 95 O2 Delivery Nasal Cannula Nasal Cannula O2 Flow Rate 2.0 2.0 12/22/20 12/22/20 12/22/20 12/22/20 15:00 16:37 19:20 20:00 Temp 99.3 99.4 99.3 99.4 Pulse 77 93 Resp 20 18 B/P (MAP) 118/79 (92) 125/79 (94) Pulse Ox 93 92 92 O2 Delivery Nasal Cannula Nasal Cannula Nasal Cannula Nasal Cannula O2 Flow Rate 2.0 2.0 2.0 2.0 12/22/20 12/22/20 12/22/20 12/23/20 20:27 22:21 23:14 02:23 Temp 99.0 98.8 99.0 98.8 Pulse 81 81 74 Resp 18 20 B/P (MAP) 126/85 (99) 126/85 129/80 (96) Pulse Ox 97 95 95 O2 Delivery Nasal Cannula Nasal Cannula Nasal Cannula O2 Flow Rate 2.0 2.0 2.0 12/23/20 12/23/20 12/23/20 12/23/20 06:03 07:37 07:39 07:53 Temp 98.3 98.3 Pulse 71 Resp 18 B/P (MAP) 121/81 (94) Pulse Ox 91 96 96 O2 Delivery Nasal Cannula Nasal Cannula Nasal Cannula Nasal Cannula O2 Flow Rate 2.0 2.0 2.0 2.0 Intake and Output 12/22/20 12/22/20 12/23/20 15:00 23:00 07:00 Intake Total 300 ml 100 ml 430 ml Output Total 1100 ml 750 ml 800 ml Balance -800 ml -650 ml -370 ml Justicifation of Admission Dx: Justifications for Admission: Justification of Admission Dx: Yes CORWIN FLOREZ MD Dec 23, 2020 08:43
[2020-12-23] MEDS: SENNOSIDES/DOCUSATE 8.6/50MG TABLET. PO SCH (08:56)
[2020-12-23] MEDS: FERROUS SULFATE 325 MG TABLET. PO SCH (08:57)
[2020-12-23] MEDS: POTASSIUM CHLORIDE 10 MEQ TABLET.ER. PO SCH (08:57)
[2020-12-23] MEDS: PANTOPRAZOLE 40 MG TABLET.DR. PO SCH (08:57)
[2020-12-23] MEDS: FLUTICASONE 50MCG/NASAL SPRAY 16GM BOTTLE. NS SCH (08:57)
[2020-12-23] MEDS: ASPIRIN ENTERIC COATED 81 MG TABLET.DR. PO SCH (08:57)
[2020-12-23] MEDS: predniSONE 20 MG TABLET PO SCH (08:59)
[2020-12-23] MEDS: CLOPIDOGREL BISULFATE 75 MG TABLET PO SCH (08:59)
[2020-12-23] MEDS: CETIRIZINE HCL 10 MG TABLET. PO SCH (08:59)
[2020-12-23] MEDS: LISINOPRIL 5 MG TABLET. PO SCH (08:59)
[2020-12-23] MEDS: HYDROCORTISONE 1% LOTION BOTTLE. TP SCH ×2 (09:00→14:32)
--- NOTE | 2020-12-23 09:40 | PDOC ---
PULMONARY PROGRESS NOTES DATE: 12/23/20 TIME: 09:40 Subjective Pt. is planned to DC today no SOA or cough remains on 2 liters NC Vitals Vital Signs Date Time Temp Pulse Resp B/P (MAP) Pulse Ox O2 Delivery O2 Flow Rate FiO2 12/23/20 08:59 82 118/76 12/23/20 07:53 Nasal Cannula 2.0 12/23/20 07:39 96 12/23/20 06:03 98.3 18 98.3 ROS: No Nausea, No Chest Pain, No Abdominal Pain, No Increase Cough General: Alert, Oriented X4 Lungs: Other (b lat diminished bs) Cardiovascular: S1, S2 Abdomen: Soft, Non-tender Neuro Exam: Alert, Oriented Extremities: Other (+edema) Skin: Warm, Dry Medications Active Scripts Medications Dose Route/Sig Max Daily Dose Days Date Category Feosol (Ferrous Sulfate) 325 Mg Tablet 325 Mg PO DAILY 12/18/20 Reported Metformin Hcl Er (Metformin Hcl) 500 Mg Tab.er.24h 1 Tab PO DAILYWSUP 12/18/20 Reported Diclofenac Sodium 75 Mg Tablet.dr 1 Tab PO BID 12/18/20 Reported Estradiol 0.5 Mg Tablet 1 Tab PO DAILY 12/18/20 Reported Lisinopril 5 Mg Tablet 5 Mg PO BID 30 10/24/20 Rx Culturelle (Lactobacillus Rhamnosus Gg) 1 Each Cap.sprink 1 Cap PO BID 30 10/23/20 Rx Breo Ellipta 100-25 Mcg INH (Fluticasone/Vilanterol) 1 Each Blst.w.dev 1 Puff INH DAILY 30 10/23/20 Rx Amlodipine Besylate 10 Mg Tablet 10 Mg PO DAILY 30 10/23/20 Rx Azithromycin Tablet (Azithromycin) 250 Mg Tablet 250 Mg PO DAILY 7 10/23/20 Rx Oxybutynin Chloride Er (Oxybutynin Chloride) 10 Mg Tab.er.24 1 Tab PO DAILY PRN 10/22/20 Reported Fluticasone Propionate Nasal [place] (Fluticasone Propionate) 16 Gm [place].susp 2 [place] NS DAILY 30 07/10/19 Rx Cetirizine Hcl 10 Mg Tablet 10 Mg PO DAILY 07/10/19 Rx Xanax (Alprazolam) 0.25 Mg Tablet 0.25 Mg PO TID PRN 03/24/19 Reported Protonix (Pantoprazole Sodium) 20 Mg Tablet.dr 40 Mg PO DAILY 01/13/19 Reported Zoloft (Sertraline Hcl) 50 Mg Tablet 1 Tab PO HS 05/10/18 Reported Clopidogrel (Clopidogrel Bisulfate) 75 Mg Tablet 1 Tab PO DAILY 02/25/18 Reported Potassium Chloride (Potassium Chloride) 10 Meq Capsule.er 1 Cap PO DAILY 04/26/15 Rx Singulair Tablet (Montelukast Sodium) 10 Mg Tablet 1 Tab PO HS 04/27/14 Reported Albuterol Sulfate Hfa Inhaler (Albuterol Sulfate) 8.5 Gm Hfa.aer.ad 8.5 Gm IH PRN 07/28/13 Reported Duoneb 0.5 Mg-3 Mg/3 Ml Soln (Ipratropium/Albuterol Sulfate) 3 Ml Ampul.neb 3 Ml IH QID 07/28/13 Reported Aspir 81 (Aspirin) 81 Mg Tablet. 81 Mg PO DAILY 07/28/13 Reported Impression . IMPRESSION: 1. Dyspnea secondary to acute exacerbation of chronic obstructive pulmonary disease in a patient who has end-stage chronic obstructive pulmonary disease, on home oxygen at 2 liters on a 24-hour basis. No obvious infection. She may benefit from a 6-minute walk test and the need for more oxygen with activity.--resolved 2. Abnormal chest x-ray consistent with chronic obstructive pulmonary disease, but no definite consolidation. Plan . Updated 12/22/20 Continue supplemental oxygen, on 2 liter NC, which is baseline oxygen 6 min walk showed 2 lpm at rest 3 with activity PO steroids with taper NEBS BD ICS pulmicort No need for ABX Repeat PFTs as an outpatient. DVT/GI PPX D/W RN, OK to [place] home today follow up with me in office at end of the Month Updated 12/22/20 Continue supplemental oxygen, on 2 liter NC on home 02 2lpm has le edema is on diuretics at home lasix 20 mg iv now 6 min walk 2 lpm at rest 3 with activity change solumedrol to pred 40 mg daily w taper by 10 mg q 3 d NEBS BD ICS pulmicort Repeat PFTs as an outpatient. DVT/GI PPX hep sx D/W RN, pt GLENIS SCHWARTZ MD Dec 23, 2020 09:40
[2020-12-23 11:19] VITALS: BP 116/68
--- NOTE | 2020-12-23 14:01 | NUR ---
SS following up with discharge planning. SS reviewed pt chart and discussed with pt RN. Pt is currently requiring oxygen at two liters nasal canula. Pt has home oxygen. Discharge plan is to home when medically ready. SS will continue to follow for discharge planning.
--- NOTE | 2020-12-23 14:44 | PDOC3 ---
Discharge Summary Date of Admission: Dec 18, 2020 Date of Discharge: Dec 23, 2020 Follow-Up: 3-5 days Admitting Diagnosis comment: HPI Patient is a 60-year-old -[place] female presenting today with increased shortness of breath. Patient has a long history of COPD, is a former smoker, that has gotten much worse over the past year according to her. 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 Reports complete compliance with her medications. She describes her symptoms as cough, shortness of breath, easy fatigue with exertion. Denies any sort of fevers, chest pain, headaches, nausea or vomiting. Patient also complaining of some lower back pain at she says it is chronic due to sciataca.. COMPLICATIONS NONE D/C CONDITION GOOD CONSULTS PULMONARY D/C MEDS SEE AUG DISCHARGE DX - Shortness of breath ACUTE COPD exacerbation, acute hypoxic respiratory failure, RESOLVED Long history of COPD DuoNebs PO steroids TAPER Oxygen as needed Pulmonary team consulted Hypertension, anxiety, allergic rhinitis Home medications resumed History of Present Illness History of Present Illness 12/23/2020 Patient seen and examined at bedside reported her breathing had improved she was feeling better; Pulmonary adding Lasix today due to some peripheral edema. Prednisone taper start Plan of care discussed with bedside nurse D/W DR LANA MONTERROSO TO D/C TODAY D/C PLANNING 24 MIN 12/22/2020 Patient seen and examined at bedside this morning Initially when seen patient reported her breathing had improved she was feeling better; return to evaluate her in the early afternoon and she said she was not feeling like her breathing was earlier and she did have a very low-grade fever per her bedside nurse. Well continue to watch her for another day Pulmonary adding Lasix today due to some peripheral edema. Prednisone taper start today Plan of care discussed with bedside nurse 12/21/2020 Patient seen and examined at bedside Responded well to IV Solu-Medrol yesterday and reports some improvement this morning we will continue the IV Solu-Medrol On 2 L nasal cannula which is her home dose She still does not feel ready for discharge as she is not quite back to her baseline Discharge maybe tomorrow or Wednesday End of care discussed with bedside RN 12/20/2020 Patient seen and examined at bedside Reports her breathing is about the same as yesterday, does not feel ready to go home as she feels like she would have to come right back On 3 L nasal cannula 6-minute walk test tomorrow 2 doses of IV Solu-Medrol today Pulmonary consulted Plan of care discussed with bedside RN 12/19/2020 Patient seen and evaluated at bedside Reports some improvement in her symptoms since yesterday Currently requiring 3 L oxygen Remains very pleasant Pulmonology consulted Plan for 6-minute walk test tomorrow Patient is a 60-year-old -[place] female presenting today with increased shortness of breath. Patient has a long history of COPD, is a former smoker, that has gotten much worse over the past year according to her. 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 Reports complete compliance with her medications. She describes her symptoms as cough, shortness of breath, easy fatigue with exertion. Denies any sort of fevers, chest pain, headaches, nausea or vomiting. Patient also complaining of some lower back pain at she says it is chronic due to sciataca.. Vitals Vitals Vital Signs Date Time Temp Pulse Resp B/P (MAP) Pulse Ox O2 Delivery O2 Flow Rate FiO2 12/23/20 07:53 Nasal Cannula 2.0 12/23/20 07:39 96 12/23/20 06:03 98.3 71 18 121/81 (94) 98.3 Physical Exam General: Alert, Oriented X3, Cooperative, No acute distress, mild distress Heart: Regular rate, Normal S1, Normal S2 Lungs: Other (b lat diminished bs) Abdomen: Normal bowel sounds, Soft, No tenderness Extremities: No clubbing, No cyanosis, Normal pulses, Other (Mild lower extremity edema) Skin: No rashes, No significant lesion Assessment and Plan Assessmemt and Plan Problems Medical Problems: (1) Acute respiratory failure Status: Acute Comment Review of Relevant I have reviewed the following items paulette (where applicable) has been applied. Labs Microbiology 12/18/20 Blood Culture - Preliminary, Resulted NO GROWTH AFTER 4 DAYS Medications Current Medications Methylprednisolone Sodium Succinate (SOLU-Medrol 125MG VIAL) 125 mg 1X ONCE IV Last administered on 12/18/20at 11:10; Start 12/18/20 at 10:45; Stop 12/18/20 at 10:46; Status DC Albuterol/ Ipratropium (Duoneb) 3 ml 1X ONCE NEB Last administered on 12/18/20at 10:55; Start 12/18/20 at 10:45; Stop 12/18/20 at 10:46; Status DC Ondansetron HCl (Zofran) 4 mg PRN Q6HRS PRN IVP NAUSEA/VOMITING; Start 12/18/20 at 13:00 Senna/Docusate Sodium (Senna Plus) 1 tab BID PO Last administered on 12/22/20at 23:14; Start 12/18/20 at 21:00 Heparin Sodium (Porcine) (Heparin Sodium) 5,000 unit Q8HRS SQ Last administered on 12/22/20at 23:16; Start 12/18/20 at 22:00 Ondansetron HCl (Zofran) 4 mg PRN Q8HRS PRN IV NAUSEA/VOMITING; Start 12/18/20 at 13:00; Stop 12/19/20 at 12:59; Status UNV Fentanyl Citrate (Fentanyl 2ml Vial) 50 mcg PRN Q1HR PRN IV PAIN; Start 12/18/20 at 13:00; Stop 12/18/20 at 13:06; Status DC Acetaminophen (Tylenol) 650 mg PRN Q4HRS PRN PO FEVER > 100.3'F; Start 12/18/20 at 13:00; Stop 12/19/20 at 12:59; Status DC Albuterol/ Ipratropium (Duoneb) 3 ml RTQID NEB ; Start 12/18/20 at 16:00; Stop 12/18/20 at 13:12; Status DC Albuterol/ Ipratropium (Duoneb) 3 ml Q4HRS W/A NEB Last administered on 12/23/20at 07:37; Start 12/18/20 at 14:00 Budesonide (Pulmicort) 0.5 mg DAILY NEB Last administered on 12/19/20at 07:16; Start 12/19/20 at 09:00; Stop 12/19/20 at 10:45; Status DC Alprazolam (Xanax) 0.25 mg PRN TID PRN PO ANXIETY / AGITATION; Start 12/18/20 at 18:30 Amlodipine Besylate (Norvasc) 10 mg DAILY PO Last administered on 12/22/20 09:13; Start 12/19/20 at 09:00 Aspirin (Ecotrin) 81 mg DAILY PO Last administered on 12/22/20 09:14; Start 12/19/20 at 09:00 Cetirizine HCl (ZyrTEC) 10 mg DAILY PO Last administered on 12/22/20 09:14; Start 12/19/20 at 09:00 Clopidogrel Bisulfate (Plavix) 75 mg DAILY PO Last administered on 12/22/20 09:14; Start 12/19/20 at 09:00 Ferrous Sulfate (Feosol) 325 mg DAILY PO Last administered on 12/22/20 09:14; Start 12/19/20 at 09:00 Fluticasone Propionate (Flonase) 2 spray DAILY NS Last administered on 12/22/20 09:11; Start 12/19/20 at 09:00 Lisinopril (Prinivil) 5 mg BID PO Last administered on 12/22/20 23:14; Start 12/18/20 at 21:00 Montelukast Sodium (Singulair) 10 mg HS PO Last administered on 12/22/20 23:14; Start 12/18/20 at 21:00 Potassium Chloride (Klor-Con) 10 meq DAILY PO Last administered on 12/22/20at 09:12; Start 12/19/20 at 09:00 Sertraline HCl (Zoloft) 50 mg HS PO Last administered on 12/22/20 23:14; Start 12/18/20 at 21:00 Oxybutynin Chloride (Ditropan) 5 mg PRN BID PRN PO BLADDER URGENCY; Start 12/18/20 at 19:00 Pantoprazole Sodium (Protonix) 40 mg DAILYAC PO Last administered on 12/22/20 09:15; Start 12/19/20 at 07:30 Prednisone (Prednisone) 40 mg DAILY PO Last administered on 12/20/20 09:21; Start 12/19/20 at 09:00; Stop 12/20/20 at 11:22; Status DC Hydrocortisone (Cortizone-10) 1 ebonie TID TP Last administered on 12/22/20at 23:13; Start 12/19/20 at 14:00 Sodium Chloride (Stanley Saline Nasal) 1 ebonie PRN DAILY PRN NS NASAL CONGESTION Last administered on 12/22/20at 09:23; Start 12/19/20 at 10:00 Budesonide (Pulmicort) 0.5 mg RTBID NEB Last administered on 12/23/20at 07:37; Start 12/19/20 at 20:00 Tramadol HCl (Ultram) 50 mg PRN Q6HRS PRN PO MILD TO MODERATE PAIN; Start 12/19/20 at 17:30 Acetaminophen (Tylenol) 650 mg PRN Q6HRS PRN PO MILD PAIN / TEMP > 100.3'F; Start 12/19/20 at 17:30 Guaifenesin (Robitussin Dm) 10 ml PRN Q6HRS PRN PO COUGH Last administered on 12/19/20at 17:52; Start 12/19/20 at 17:30 Methylprednisolone Sodium Succinate (SOLU-Medrol 40MG VIAL) 60 mg Q12HR IV Last administered on 12/20/20at 21:07; Start 12/20/20 at 21:00; Stop 12/21/20 at 07:08; Status DC Methylprednisolone Sodium Succinate (SOLU-Medrol 40MG VIAL) 40 mg Q12HR IV Last administered on 12/21/20at 21:16; Start 12/21/20 at 09:00; Stop 12/22/20 at 07:33; Status DC Furosemide (Lasix) 20 mg 1X STAT IVP Last administered on 12/22/20at 09:16; Start 12/22/20 at 07:29; Stop 12/22/20 at 07:34; Status DC Prednisone (Prednisone) 40 mg DAILY PO Last administered on 12/22/20at 09:14; Start 12/22/20 at 09:00 Active Scripts Active Lisinopril 5 Mg Tablet 5 Mg PO BID 30 Days Culturelle (Lactobacillus Rhamnosus Gg) 1 Each Cap.sprink 1 Cap PO BID 30 Days Breo Ellipta 100-25 Mcg INH (Fluticasone/Vilanterol) 1 Each Blst.w.dev 1 Puff INH DAILY 30 Days Amlodipine Besylate 10 Mg Tablet 10 Mg PO DAILY 30 Days Azithromycin Tablet (Azithromycin) 250 Mg Tablet 250 Mg PO DAILY 7 Days Fluticasone Propionate Nasal [place] (Fluticasone Propionate) 16 Gm [place].susp 2 [place] NS DAILY 30 Days Cetirizine Hcl 10 Mg Tablet 10 Mg PO DAILY Potassium Chloride (Potassium Chloride) 10 Meq Capsule.er 1 Cap PO DAILY Reported Feosol (Ferrous Sulfate) 325 Mg Tablet 325 Mg PO DAILY Metformin Hcl Er (Metformin Hcl) 500 Mg Tab.er.24h 1 Tab PO DAILYWSUP Diclofenac Sodium 75 Mg Tablet.dr 1 Tab PO BID Estradiol 0.5 Mg Tablet 1 Tab PO DAILY Oxybutynin Chloride Er (Oxybutynin Chloride) 10 Mg Tab.er.24 1 Tab PO DAILY PRN Xanax (Alprazolam) 0.25 Mg Tablet 0.25 Mg PO TID PRN Protonix (Pantoprazole Sodium) 20 Mg Tablet.dr 40 Mg PO DAILY Zoloft (Sertraline Hcl) 50 Mg Tablet 1 Tab PO HS Clopidogrel (Clopidogrel Bisulfate) 75 Mg Tablet 1 Tab PO DAILY Singulair Tablet (Montelukast Sodium) 10 Mg Tablet 1 Tab PO HS Albuterol Sulfate Hfa Inhaler (Albuterol Sulfate) 8.5 Gm Hfa.aer.ad 8.5 Gm IH PRN Duoneb 0.5 Mg-3 Mg/3 Ml Soln (Ipratropium/Albuterol Sulfate) 3 Ml Ampul.neb 3 Ml IH QID Aspir 81 (Aspirin) 81 Mg Tablet.dr 81 Mg PO DAILY Vitals/I & O FINAL DIAGNOSIS Problems Medical Problems: (1) Acute respiratory failure Status: Acute Brief Hospital Course Ms. Stevens is a 60 old [sex] who presented with [ ] CONDITION AT DISCHARGE: Improved Discharge Medications Current Medications Methylprednisolone Sodium Succinate (SOLU-Medrol 125MG VIAL) 125 mg 1X ONCE IV Last administered on 12/18/20at 11:10; Start 12/18/20 at 10:45; Stop 12/18/20 at 10:46; Status DC Albuterol/ Ipratropium (Duoneb) 3 ml 1X ONCE NEB Last administered on 12/18/20at 10:55; Start 12/18/20 at 10:45; Stop 12/18/20 at 10:46; Status DC Ondansetron HCl (Zofran) 4 mg PRN Q6HRS PRN IVP NAUSEA/VOMITING; Start 12/18/20 at 13:00 Senna/Docusate Sodium (Senna Plus) 1 tab BID PO Last administered on 12/23/20at 08:56; Start 12/18/20 at 21:00 Heparin Sodium (Porcine) (Heparin Sodium) 5,000 unit Q8HRS SQ Last administered on 12/22/20at 23:16; Start 12/18/20 at 22:00 Ondansetron HCl (Zofran) 4 mg PRN Q8HRS PRN IV NAUSEA/VOMITING; Start 12/18/20 at 13:00; Stop 12/19/20 at 12:59; Status UNV Fentanyl Citrate (Fentanyl 2ml Vial) 50 mcg PRN Q1HR PRN IV PAIN; Start 12/18/20 at 13:00; Stop 12/18/20 at 13:06; Status DC Acetaminophen (Tylenol) 650 mg PRN Q4HRS PRN PO FEVER > 100.3'F; Start 12/18/20 at 13:00; Stop 12/19/20 at 12:59; Status DC Albuterol/ Ipratropium (Duoneb) 3 ml RTQID NEB ; Start 12/18/20 at 16:00; Stop 12/18/20 at 13:12; Status DC Albuterol/ Ipratropium (Duoneb) 3 ml Q4HRS W/A NEB Last administered on 12/23/20at 11:34; Start 12/18/20 at 14:00 Budesonide (Pulmicort) 0.5 mg DAILY NEB Last administered on 12/19/20at 07:16; Start 12/19/20 at 09:00; Stop 12/19/20 at 10:45; Status DC Alprazolam (Xanax) 0.25 mg PRN TID PRN PO ANXIETY / AGITATION; Start 12/18/20 at 18:30 Amlodipine Besylate (Norvasc) 10 mg DAILY PO Last administered on 12/23/20at 08:59; Start 12/19/20 at 09:00 Aspirin (Ecotrin) 81 mg DAILY PO Last administered on 12/23/20at 08:57; Start 12/19/20 at 09:00 Cetirizine HCl (ZyrTEC) 10 mg DAILY PO Last administered on 12/23/20 08:59; Start 12/19/20 at 09:00 Clopidogrel Bisulfate (Plavix) 75 mg DAILY PO Last administered on 12/23/20 08:59; Start 12/19/20 at 09:00 Ferrous Sulfate (Feosol) 325 mg DAILY PO Last administered on 12/23/20 08:57; Start 12/19/20 at 09:00 Fluticasone Propionate (Flonase) 2 spray DAILY NS Last administered on 12/23/20 08:57; Start 12/19/20 at 09:00 Lisinopril (Prinivil) 5 mg BID PO Last administered on 12/23/20 08:59; Start 12/18/20 at 21:00 Montelukast Sodium (Singulair) 10 mg HS PO Last administered on 12/22/20 23:14; Start 12/18/20 at 21:00 Potassium Chloride (Klor-Con) 10 meq DAILY PO Last administered on 12/23/20 08:57; Start 12/19/20 at 09:00 Sertraline HCl (Zoloft) 50 mg HS PO Last administered on 12/22/20 23:14; Start 12/18/20 at 21:00 Oxybutynin Chloride (Ditropan) 5 mg PRN BID PRN PO BLADDER URGENCY; Start 12/18/20 at 19:00 Pantoprazole Sodium (Protonix) 40 mg DAILYAC PO Last administered on 12/23/20 08:57; Start 12/19/20 at 07:30 Prednisone (Prednisone) 40 mg DAILY PO Last administered on 12/20/20 09:21; Start 12/19/20 at 09:00; Stop 12/20/20 at 11:22; Status DC Hydrocortisone (Cortizone-10) 1 ebonie TID TP Last administered on 12/23/20 14:32; Start 12/19/20 at 14:00 Sodium Chloride (Stan[place] Saline Nasal) 1 ebonie PRN DAILY PRN NS NASAL CONGESTION Last administered on 12/22/20 09:23; Start 12/19/20 at 10:00 Budesonide (Pulmicort) 0.5 mg RTBID NEB Last administered on 12/23/20at 07:37; Start 12/19/20 at 20:00 Tramadol HCl (Ultram) 50 mg PRN Q6HRS PRN PO MODERATE-SEVERE PAIN; Start 12/19/20 at 17:30 Acetaminophen (Tylenol) 650 mg PRN Q6HRS PRN PO MILD PAIN / TEMP > 100.3'F; Start 12/19/20 at 17:30 Guaifenesin (Robitussin Dm) 10 ml PRN Q6HRS PRN PO COUGH Last administered on 12/19/20at 17:52; Start 12/19/20 at 17:30 Methylprednisolone Sodium Succinate (SOLU-Medrol 40MG VIAL) 60 mg Q12HR IV Last administered on 12/20/20at 21:07; Start 12/20/20 at 21:00; Stop 12/21/20 at 07:08; Status DC Methylprednisolone Sodium Succinate (SOLU-Medrol 40MG VIAL) 40 mg Q12HR IV Last administered on 12/21/20at 21:16; Start 12/21/20 at 09:00; Stop 12/22/20 at 07:33 ; Status DC Furosemide (Lasix) 20 mg 1X STAT IVP Last administered on 12/22/20at 09:16; Start 12/22/20 at 07:29; Stop 12/22/20 at 07:34; Status DC Prednisone (Prednisone) 40 mg DAILY PO Last administered on 12/23/20at 08:59; Start 12/22/20 at 09:00 Active Scripts Active Lisinopril 5 Mg Tablet 5 Mg PO BID 30 Days Culturelle (Lactobacillus Rhamnosus Gg) 1 Each Cap.sprink 1 Cap PO BID 30 Days Breo Ellipta 100-25 Mcg INH (Fluticasone/Vilanterol) 1 Each Blst.w.dev 1 Puff INH DAILY 30 Days Amlodipine Besylate 10 Mg Tablet 10 Mg PO DAILY 30 Days Azithromycin Tablet (Azithromycin) 250 Mg Tablet 250 Mg PO DAILY 7 Days Fluticasone Propionate Nasal [place] (Fluticasone Propionate) 16 Gm [place].susp 2 [place] NS DAILY 30 Days Cetirizine Hcl 10 Mg Tablet 10 Mg PO DAILY Potassium Chloride (Potassium Chloride) 10 Meq Capsule.er 1 Cap PO DAILY Reported Feosol (Ferrous Sulfate) 325 Mg Tablet 325 Mg PO DAILY Metformin Hcl Er (Metformin Hcl) 500 Mg Tab.er.24h 1 Tab PO DAILYWSUP Diclofenac Sodium 75 Mg Tablet.dr 1 Tab PO BID Estradiol 0.5 Mg Tablet 1 Tab PO DAILY Oxybutynin Chloride Er (Oxybutynin Chloride) 10 Mg Tab.er.24 1 Tab PO DAILY PRN Xanax (Alprazolam) 0.25 Mg Tablet 0.25 Mg PO TID PRN Protonix (Pantoprazole Sodium) 20 Mg Tablet.dr 40 Mg PO DAILY Zoloft (Sertraline Hcl) 50 Mg Tablet 1 Tab PO HS Clopidogrel (Clopidogrel Bisulfate) 75 Mg Tablet 1 Tab PO DAILY Singulair Tablet (Montelukast Sodium) 10 Mg Tablet 1 Tab PO HS Albuterol Sulfate Hfa Inhaler (Albuterol Sulfate) 8.5 Gm Hfa.aer.ad 8.5 Gm IH PRN Duoneb 0.5 Mg-3 Mg/3 Ml Soln (Ipratropium/Albuterol Sulfate) 3 Ml Ampul.neb 3 Ml IH QID Aspir 81 (Aspirin) 81 Mg Tablet.dr 81 Mg PO DAILY Vital Signs Vital Signs Date Time Temp Pulse Resp B/P (MAP) Pulse Ox O2 Delivery O2 Flow Rate FiO2 12/23/20 11:34 96 Nasal Cannula 2.0 12/23/20 11:19 99.2 74 18 116/68 (84) 99.2 Allergies Allergies Coded Allergies Type Severity Reaction Last Updated Verified iron Allergy Severe Swelling 10/21/20 Yes Penicillins Allergy Intermediate rash 10/21/20 Yes morphine Allergy Intermediate Rash-PERCOCET OK 10/21/20 Yes benzonatate Adverse Reaction Intermediate Itching 10/21/20 Yes Disposition/Orders: D/C to Home Justicifation of Admission Dx: Justifications for Admission: Justification of Admission Dx: Yes CORWIN FLOREZ MD Dec 23, 2020 14:44
[2020-12-23] MEDS ORDERED: ACET325T21 PO (14:49)
[2020-12-23] MEDS ORDERED: HYDR99LO TP (14:49)
[2020-12-23] MEDS ORDERED: PRED20TA PO (14:49)
[2020-12-23] MEDS ORDERED: SENN-189 PO (14:49)
[2020-12-23] MEDS ORDERED: GUAI5SYR PO (14:49)
--- NOTE | 2020-12-23 14:51 | DISCH ---
DISCHARGE INSTRUCTIONS Condition on Discharge Condition on Discharge: Stable Activity After Discharge Activity Instructions for Disc: Activity as tolerated Lifting Instructions after Dis: No heavy lifting, No pulling or pushing, Do not lift >10 pounds Exercise Instruction after Dis: Progress as tolerated Driving Instructions after Dis: Do not drive today, Other, see below Weight Bearing Status after Di: No restrictions Diet after Discharge Diet after Discharge: Regular Diet Texture: Regular Liquid Texture: Thin Liquid Swallowing Supervision: None needed Wound Incision Care Wound/Incision Care: No wound care needed Checks after Discharge Checks after discharge: Check blood press - daily Contacting the DR. after DC Call your doctor for: If your condition worsens Follow-Up Follow up with: SEE PCP THIS WEEK, PULMONARY 10-14 DAYS Treatment/Equipment after DC Adaptive Equipment Issued: None, Front wheeled walker Discharge Respiratory Equipmen: Oxygen, Nebulizer CORWIN FLOREZ MD Dec 23, 2020 14:51
[2020-12-23 16:17] VITALS: BP 115/70
--- NOTE | 2020-12-23 16:51 | NUR ---
Discharge Note: EDDI QUEZADA Discharge instructions and discharge home medications reviewed with Patient and a copy given. All questions have been answered and understanding verbalized. The following instructions and handouts were given: COPD, Cough Patient discharged to home with spouse via private vehicle. Iv out, monitor off and placed at nursing station.
[2020-12-24] MEDS ORDERED: predniSONE 10 MG TABLET PO SCH (09:00)
[2020-12-28] MEDS ORDERED: predniSONE 20 MG TABLET PO SCH (09:00)
[2021-01-01] MEDS ORDERED: predniSONE 10 MG TABLET PO SCH (09:00)
== END 2020-12-23 16:50 | disposition home or self-care (01) | DRG 189 ==
LOC: ER 09:50 → 2 NORTH 12:51
PROVIDERS: ADMIT Student in an Organized Health Care Education/Training Program; ATTEND Student in an Organized Health Care Education/Training Program
DX: J96.21 Acute and chronic respiratory failure with hypoxia (principal); J44.1 Chronic obstructive pulmonary disease with (acute) exacerbation; E78.00 Pure hypercholesterolemia, unspecified; J96.22 Acute and chronic respiratory failure with hypercapnia; E78.5 Hyperlipidemia, unspecified; F41.9 Anxiety disorder, unspecified; I10 Essential (primary) hypertension; I25.10 Atherosclerotic heart disease of native coronary artery without angina pectoris; I27.20 Pulmonary hypertension, unspecified; J30.9 Allergic rhinitis, unspecified; Z82.49 Family history of ischemic heart disease and other diseases of the circulatory system; Z87.891 Personal history of nicotine dependence; Z90.710 Acquired absence of both cervix and uterus; Z99.81 Dependence on supplemental oxygen; Z88.5 Allergy status to narcotic agent; Z88.0 Allergy status to penicillin; Z88.8 Allergy status to other drugs, medicaments and biological substances
CPT/HCPCS: 36415; 71045; 80053; 82553; 83605; 83735; 83880; 84145; 84443; 84484; 85025; 87040; 93005; 94618; 94640; 94760; 96374; J1644; J1940; J2920; J2930; J7512; 99285-25; G0378; J7626

== ENCOUNTER → 2021-01-14 | Outpatient (CLI) | payer OTHER ==
[2020-12-23 16:17] VITALS: BP 115/70
[~2021-01-14] MED LIST changes: +FAMO40TA4 PO; +FERR325T72 PO; +HYDR99LO TP; +METF-658 PO; +SENN-189 PO
[2021-01-14 08:36] LABS: ALBUMIN 3.7 g/dL (3.4-5.0); ALBUMIN/GLOBULIN RATIO 1.1 (1.0-1.7); CALCIUM 8.9 mg/dL (8.5-10.1); CREATININE 0.8 mg/dL (0.6-1.0); GFR 87.9; POTASSIUM 4.1 mmol/L (3.5-5.1); TOTAL BILIRUBIN 0.3 mg/dL (0.2-1.0); TOTAL PROTEIN 7.2 g/dL (6.4-8.2)
[2021-01-14 08:41] LABS: CHOLESTEROL/HDL RATIO 3.2
[2021-01-15 01:25] LABS: HEMOGLOBIN A1C 6.2 % (4.8-5.6)
== END ==
LOC: LAB 06:28
PROVIDERS: ATTEND Family Medicine
DX: E11.9 Type 2 diabetes mellitus without complications (principal); E78.5 Hyperlipidemia, unspecified
CPT/HCPCS: 36415; 80053; 80061; 83036

== ENCOUNTER → 2021-01-14 | Outpatient (CLI) | payer OTHER ==
[2020-12-23 16:17] VITALS: BP 115/70
[2021-01-14 08:29] LABS: CREATININE 0.8 mg/dL (0.6-1.0); GFR 87.9; MAGNESIUM 1.9 mg/dL (1.8-2.4); POTASSIUM 4.1 mmol/L (3.5-5.1)
== END ==
LOC: LAB 06:37
PROVIDERS: ATTEND Internal Medicine Cardiovascular Disease
DX: M79.605 Pain in left leg (principal)
CPT/HCPCS: 36415; 80048; 83735

== ENCOUNTER → 2021-01-23 | Outpatient (CLI) | payer OTHER ==
--- NOTE | 2021-01-23 14:40 | RAD ---
MR#: [id number] Date of Study: 01/23/2021 Ordering Physician: TERA CORONEL, Referring Physician: TERA CORONEL, Tech: Greg Pennington MBA, RDMS, RVT, RDCS, RTR APPROVED REPORT Patient Location: OUT-PATIENT Indications Rest Pain:Bilaterally Findings Right arm 116, right ankle 82, right KLAUDIA 0.69 Left arm 118, left ankle could not be compressed due to calcification. Critical Notification Critical Value: No <Conclusion> 1. Abnormal KLAUDIA of the right side 2. Nondiagnostic KLAUDIA of the left side Signed by : Tera Coronel, Electronically Approved : 01/23/2021 14:39:59
--- NOTE | 2021-01-23 14:48 | RAD ---
MR#: [id number] Date of Study: 01/23/2021 Ordering Physician: TERA CORONEL, Referring Physician: TERA CORONEL, Tech: Greg Pennington MBA, RDMS, RVT, RDCS, RTR APPROVED REPORT Patient Location: OUT-PATIENT Indications Rest Pain:Bilaterally VELOCITY AND DOPPLER WAVEFORM ANALYSIS RIGHT cm/secWaveformSeverity LEFT cm/secWaveform Severity dCFA 124.0MonophasicdCFA 229.0Triphasic Prof Fem Art. 70.0MonophasicProf Fem Art. 103.0Triphasic Fem Art Prox. 51.0MonophasicFem Art Prox. 84.0Biphasic Fem Art Mid. 393.0MonophasicFem Art Mid. 102.0Triphasic Fem Art Dist. 70.0MonophasicFem Art Dist. 200.0Triphasic Pop Art(Fossa) 55.0MonophasicPop Art(AK) 77.0Biphasic SENIOR ENERGY TRADER Prox. 24.0MonophasicPTA Prox. 64.0Biphasic SENIOR ENERGY TRADER Dist. 23.0MonophasicPTA Dist. 62.0Biphasic HARMONY Prox. 38.0MonophasicATA Prox. 73.0Biphasic DPA 31MonophasicDPA 59Monophasic Findings Grayscale images the bilateral lower extremity arterial vessels demonstrates moderate diffuse atheros clerotic plaque. On the right side there is likely a greater than 75% stenosis involving the mid SFA. Distal to the S FA the popliteal artery and below-knee vessels demonstrate diminished waveforms are monophasic wave p attern consistent with more proximal stenosis. The peroneal artery is not well visualized but there is two-vessel runoff. On the left side there are mostly biphasic waveforms with grossly normal velocities throughout. The peroneal artery again is not well visualized. Critical Notification Critical Value: No <Conclusion> 1. Greater than 75% stenosis involving the right mid SFA. 2. Bilateral two-vessel runoff with nonvisualization of the peroneal artery. Signed by : Tera Coronel, Electronically Approved : 01/23/2021 14:47:44
--- NOTE | 2021-01-23 14:50 | RAD ---
MR#: [id number] Date of Study: 01/23/2021 Ordering Physician: TERA CORONEL, Referring Physician: TERA CORONEL, Tech: Greg Pennington MBA, RDMS, RVT, RDCS, RTR APPROVED REPORT Patient Location : OUT-PATIENT Indications Lower Extremity Pain : Bilateral Findings Limited grayscale images the bilateral saphenofemoral junctions are grossly unremarkable. The right great saphenous vein measures 5.6 mm and the left great saphenous vein measures 5.6 mm. Bilateral greater and lesser saphenous veins do not reveal any evidence of reflux Critical Notification Critical Value: No <Conclusion> 1. Negative for reflux in the bilateral greater and lesser saphenous veins Signed by : Tera Coronel, Electronically Approved : 01/23/2021 14:50:27
== END ==
LOC: US 12:40
PROVIDERS: ATTEND Internal Medicine Cardiovascular Disease
DX: I70.201 Unspecified atherosclerosis of native arteries of extremities, right leg (principal)
CPT/HCPCS: 93922; 93925; 93970

== ENCOUNTER → 2021-02-25 | Outpatient (CLI) | payer OTHER ==
--- NOTE | 2021-02-25 08:57 | RAD ---
EXAM: RENAL/RETROPERITONAL ULTRASOUND. HISTORY: Difficulty urinating. COMPARISON: None. FINDINGS: Ultrasound of the kidneys, bladder and retroperitoneum was performed. The right kidney measures 10.1 cm. Cortical thickness and echogenicity are preserved. There is no hyd ronephrosis. The left kidney partially obscured but measures 12.0 cm. Cortical thickness and echogenicity are pres erved. There is no hydronephrosis. The bladder is decompressed and not well seen. The abdominal aorta and inferior vena cava are grossly patent and normal in caliber. IMPRESSION: 1. Decompressed bladder. Unremarkable examination of the kidneys. No hydronephrosis. The left kidney is partially obscured. Electronically signed by: Deonna Machado MD (02/25/2021 8:54 AM) [facility]
== END ==
LOC: US 06:28
PROVIDERS: ATTEND Family Medicine
DX: R39.198 Other difficulties with micturition (principal)
CPT/HCPCS: 76770

== ENCOUNTER → 2021-08-08 | Outpatient (CLI) | payer OTHER ==
[~2021-08-08] MED LIST changes: +CYCL10TA19 PO; -CYCL10TA2 PO; -LISI-517 PO; +LISI5TAB15 PO; +TIZA-75 PO; -TIZA4TAB2 PO
[2021-08-08 08:29] LABS: BASO % 1 % (0-3); EOS # 0.2 x10^3/uL (0.0-0.7); EOS % 4 % (0-3); HEMATOCRIT 44.2 % (36.0-47.0); HEMOGLOBIN 14.1 g/dL (12.0-15.5); LYMPH # 2.3 x10^3/uL (1.0-4.8); LYMPH % 45 % (24-48); MEAN CORPUSCULAR HEMOGLOBIN 29 pg (25-35); MEAN CORPUSCULAR HGB CONC 32 g/dL (31-37); MEAN CORPUSCULAR VOLUME 92 fL (79-100); MONO # 0.7 x10^3/uL (0.0-1.1); MONO % 13 % (0-9); NEUT # 1.9 x10^3/uL (1.8-7.7); NEUT % 37 % (31-73); PLATELET COUNT 245 x10^3/uL (140-400); RED BLOOD COUNT 4.79 x10^6/uL (3.50-5.40); RED CELL DISTRIBUTION WIDTH 13.5 % (11.5-14.5)
[2021-08-08 08:33] LABS: ALBUMIN 3.8 g/dL (3.4-5.0); ALBUMIN/GLOBULIN RATIO 1.1 (1.0-1.7); CALCIUM 8.3 mg/dL (8.5-10.1); CREATININE 0.8 mg/dL (0.6-1.0); GFR 87.7; TOTAL BILIRUBIN 0.3 mg/dL (0.2-1.0); TOTAL PROTEIN 7.3 g/dL (6.4-8.2)
[2021-08-08 08:34] LABS: CHOLESTEROL/HDL RATIO 2.3
[2021-08-09 00:08] LABS: HEMOGLOBIN A1C 5.8 % (4.8-5.6)
== END ==
LOC: LAB 08:01
PROVIDERS: ATTEND Family Medicine
DX: E11.9 Type 2 diabetes mellitus without complications (principal); E78.5 Hyperlipidemia, unspecified; E55.9 Vitamin D deficiency, unspecified
CPT/HCPCS: 36415; 80053; 80061; 82306; 83036; 85025

== ENCOUNTER → 2021-08-21 | Outpatient (CLI) | payer OTHER ==
--- NOTE | 2021-08-22 07:44 | CARD ---
MR#: [id number] Date of Study: 08/21/2021 Ordering Physician: JUDD CORONEL, Referring Physician: JUDD CORONEL, Tech: Miguel Lozano [facility] APPROVED REPORT EXAM: Two-dimensional and M-mode echocardiogram with Doppler and color Doppler. Other Information Quality : AverageHR: 77bpm Rhythm : NSR INDICATION Acute VT Dyspnea RISK FACTORS Smoking COPD 2D DIMENSIONS Left Atrium(2D)3.3 (1.6-4.0cm)IVSd0.8 (0.7-1.1cm) Aortic Root(2D)3.0 (2.0-3.7cm)LVDd4.6 (3.9-5.9cm) LVOT Diameter1.9 (1.8-2.4cm)PWd0.9 (0.7-1.1cm) LVDs2.5 (2.5-4.0cm)FS (%) 45.5 % SV75.8 mlLVEF(%)76.9 (>50%) Aortic Valve AoV Peak Isaiah.152.5cm/sAoV VTI29.6cm AO Peak GR.9.3mmHgLVOT Peak Isaiah.98.0cm/s AO Mean GR.5mmHgAVA (VMAX)1.74cm2 Mitral Valve MV E Nsbaihnq11.7cm/sMV E Peak Gr.3mmHg MV DECEL [id number] A Avrgrlpx96.5cm/s MV E Mean Gr.2mmHgE/A Ratio0.8 Pulmonary Valve PV Peak Bldxrdpg660.0cm/s Tricuspid Valve TR P. Ijejnmfb545lr/sTR Peak Gr.40mmHg Pulmonary Vein S1 Cwxqnvlf01.3cm/sD2 Wztrzuoi65.8cm/s LEFT VENTRICLE The left ventricle is normal size. There is normal left ventricular wall thickness. The left ventricu lar systolic function is normal and the ejection fraction is within normal range. EF 55% There is nor mal LV segmental wall motion. Transmitral Doppler flow pattern is Grade I-abnormal relaxation pattern . No left ventricle thrombus noted on this study. There is no ventricular septal defect visualized. T here is no left ventricular aneurysm. There is no mass noted in the left ventricle. RIGHT VENTRICLE The right ventricle is normal size. There is normal right ventricular wall thickness. The right ventr icular systolic function is normal. ATRIA The left atrium is borderline dilated. The right atrium size is normal. The interatrial septum is int act with no evidence for an atrial septal defect or patent foramen ovale as noted on 2-D or Doppler i maging. AORTIC VALVE The aortic valve is normal in structure and function. Doppler and Color Flow revealed trace aortic re gurgitation. There is no significant aortic valvular stenosis. There is no aortic valvular vegetation . MITRAL VALVE The mitral valve is normal in structure and function. There is no evidence of mitral valve prolapse. There is no mitral valve stenosis. Doppler and Color-flow revealed mild mitral regurgitation. TRICUSPID VALVE The tricuspid valve is normal in structure and function. Doppler and Color Flow revealed mild tricusp id regurgitation. RVSP 40 mm Hg. There is no tricuspid valve prolapse or vegetation. There is no tric uspid valve stenosis. PULMONIC VALVE There is mild pulmonic regurgitation. There is no pulmonic valvular stenosis. GREAT VESSELS The aortic root is normal in size. The ascending aorta is normal in size. The pulmonary artery is dil ated. The IVC is normal in size and collapses >50% with inspiration. PERICARDIAL EFFUSION There is no pleural effusion. There is no evidence of significant pericardial effusion. Critical Notification Critical Value: No <Conclusion> The left ventricular systolic function is normal and the ejection fraction is within normal range. EF 55% There is normal LV segmental wall motion. Doppler and Color Flow revealed mild tricuspid regurgitation. RVSP 40 mm Hg. The pulmonary artery is dilated. Signed by : Judd Coronel, Electronically Approved : 08/22/2021 07:44:07
== END ==
LOC: ECHO 12:17
PROVIDERS: ATTEND Internal Medicine Cardiovascular Disease
DX: I08.1 Rheumatic disorders of both mitral and tricuspid valves (principal); I21.9 Acute myocardial infarction, unspecified; R06.00 Dyspnea, unspecified
CPT/HCPCS: 93306; C8929

== ENCOUNTER → 2021-10-02 | Outpatient (CLI) | payer OTHER ==
--- NOTE | 2021-10-02 14:36 | RAD ---
EXAMINATION: MG BILAT SCREEN+BENITEZ CLINICAL HISTORY: Screening TECHNIQUE: Digital craniocaudal and mediolateral oblique views of the bilateral breasts obtained with 3-D tomosynthesis. COMPARISON: 09/30/2020, 08/17/2019, 07/19/2018, 07/14/2017, 07/14/2016 BREAST COMPOSITION: There are scattered areas of fibroglandular density. FINDINGS: No evidence of suspicious mass, calcifications, or areas of architectural distortion. IMPRESSION: No mammographic evidence of malignancy. BI-RADS ASSESSMENT: Category 1: Negative RECOMMENDATION: Return for routine bilateral screening mammogram in one year. Patient information is entered into the reminder system with a target due date for the next screening mammogram. "Our facility is accredited by the [employer] Mammography Program." Electronically signed by: Jama King DO (10/02/2021 2:34 PM) [id number]
== END ==
LOC: MAMMO 10:21
PROVIDERS: ATTEND Family Medicine
DX: Z12.31 Encounter for screening mammogram for malignant neoplasm of breast (principal)
CPT/HCPCS: 77063; 77067

== ENCOUNTER → 2021-10-14 | Outpatient (CLI) | payer OTHER ==
--- NOTE | 2021-10-14 13:31 | PDOC1 ---
INITIAL PAIN CONSULT DATE OF SERVICE: DOS: DATE: 10/14/21 TIME: 13:27 CHIEF COMPLAINT: Chief Complaint: Low back and left lower extremity pain HISTORY OF PRESENT ILLNESS: 61-year-old female presents history of pain low back left lower extremity for about 2 years not the result of any specific injury or accident she is aware but is been getting worse with time and radiating pain into the low back into the left lower extremity posterior gluteus lateral thigh anterior thigh medial thigh medial lower leg some in the groin as well into the lower leg to the ankle and the foot on the anterior aspect of the lower leg. Patient reports is worse with walking standing changing positions wakes her from sleep frequently though about 3 times a night patient reports he does not affect her bowel bladder control does affect her ability to walk uses a walker which has a seat on it which she has with her today also a cane as well patient reports has had physical therapy since 2020 also is doing exercise daily takes diclofenac daily as well which she feels is not significantly helpful patient reports the pain is in the low back and left lower extremity is noted described as constant aching in the back burning and stabbing in the left lower extremity with numbness and radiating pain in the left lower extremity patient rates her disability rating 0-10 10 being the worst is a 9-10 with social activity occupation and self-care as well as life support activities when laying down especially. Patient reports no loss of motor function but significant fatigability in the left lower extremity with walking and standing. Patient did have an MRI scan lumbar spine showing L4-5 a disc bulge with a left foraminal disc protrusion mild left neuroforaminal narrowing and slight abutment of the exiting L5 nerve root. Patient reports no bowel or bladder incontinence. PAST MEDICAL HISTORY: PMH: COPD, diabetes type 2, arthritis, coronary artery disease PREVIOUS SURGERIES: Past Surgical Hx: Hysterectomy, tonsillectomy, cardiac stents placement CURRENT MEDICATIONS: Current Meds: Active Scripts Medications Dose Route/Sig Max Daily Dose Days Date Category Feosol (Ferrous Sulfate) 325 Mg Tablet 325 Mg PO DAILY 12/18/20 Reported Metformin Hcl Er (Metformin Hcl) 500 Mg Tab.er.24h 1 Tab PO DAILYWSUP 12/18/20 Reported Estradiol 0.5 Mg Tablet 1 Tab PO DAILY 12/18/20 Reported Lisinopril 5 Mg Tablet 5 Mg PO BID 30 10/24/20 Rx Culturelle (Lactobacillus Rhamnosus Gg) 1 Each Cap.sprink 1 Cap PO BID 30 10/23/20 Rx Breo Ellipta 100-25 Mcg INH (Fluticasone/Vilanterol) 1 Each Blst.w.dev 1 Puff INH DAILY 30 10/23/20 Rx Amlodipine Besylate 10 Mg Tablet 10 Mg PO DAILY 30 10/23/20 Rx Oxybutynin Chloride Er (Oxybutynin Chloride) 10 Mg Tab.er.24 1 Tab PO DAILY PRN 10/22/20 Reported Xanax (Alprazolam) 0.25 Mg Tablet 0.25 Mg PO TID PRN 03/24/19 Reported Protonix (Pantoprazole Sodium) 20 Mg Tablet. 40 Mg PO DAILY 01/13/19 Reported Zoloft (Sertraline Hcl) 50 Mg Tablet 1 Tab PO HS 05/10/18 Reported Singulair Tablet (Montelukast Sodium) 10 Mg Tablet 1 Tab PO HS 04/27/14 Reported Albuterol Sulfate Hfa Inhaler (Albuterol Sulfate) 8.5 Gm Hfa.aer.ad 8.5 Gm IH PRN 07/28/13 Reported Duoneb 0.5 Mg-3 Mg/3 Ml Soln (Ipratropium/Albuterol Sulfate) 3 Ml Ampul.neb 3 Ml IH QID 07/28/13 Reported Aspir 81 (Aspirin) 81 Mg Tablet. 81 Mg PO DAILY 07/28/13 Reported ALLERGIES; Allergies: Coded Allergies: iron (Verified Allergy, Severe, Swelling, 10/21/20) Itching, swelling of hands with IV infusion; able to tolerate PO Penicillins (Verified Allergy, Intermediate, rash, 10/21/20) morphine (Verified Allergy, Intermediate, Rash-PERCOCET OK, 10/21/20) benzonatate (Verified Adverse Reaction, Intermediate, Itching, 10/21/20) FAMILY HISTORY: Family Hx: Hypertension, cancers SOCIAL HISTORY: Social Hx: Patient is nondrug alcohol does not smoke or use any illegal illicit or recreational drugs is single lives locally in [facility] and 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 PHYSICAL EXAM: VS: Blood pressure is 113/71 pulse 97 respirations 20 temperature 98.2 F height is 5 foot weight is 176 pounds. PE: PHYSICAL EXAMINATION: GENERAL: The patient is awake, alert, oriented, appropriate, very pleasant in demeanor HEENT: Shows normocephalic, atraumatic. Extraocular movements are intact and symmetrical. Oral cavity: Mucous membranes moist and pink. Dentition is intact. NECK: Shows anterior throat supple without palpable lymphadenopathy noted. Swallow reflex symmetrical. CHEST: Shows normal on inspection. Breath sounds are clear bilaterally, no rales rhonchi or wheezes auscultated. HEART: Shows S1, S2 clear. No murmurs auscultated. ABDOMEN: Soft, nontender, nondistended. No palpable organomegaly is noted. BACK: Shows spine grossly in the midline. Normal-appearing cervical lordotic curvature. There is slightly increased thoracic kyphosis, some minor flattening of the lumbar lordotic curvature. Lumbar paraspinous muscles show symmetrical on inspection, on palpation shows some moderate tenderness diffusely throughout the upper, middle and lower distribution of the paraspinous muscles bilaterally and also into the lower thoracic paraspinous musculature, firm and tender, but without specific trigger points, without radiation of pain. The patient has good rotational motion of the lumbar spine, both laterally as well as extension and flexion without significant difficulty. No tenderness over the spinous processes, sacrum or sacroiliac regions. EXTREMITIES: Lower extremities show deep tendon reflexes 1+ in the patellar and tendo calcaneus tendons. Motor exam is 5 on a scale of 5 with right dorsiflexion, extension, quadriceps and hamstring flexion and 4/5 on the left. Peripheral pulses are 1+ posterior tibial. No peripheral edema is noted bilaterally. Lower extremities are warm and dry to touch, equal in color and appearance. SKIN: Shows warm and dry, good turgor. No edema. No sores, rashes or bruising throughout. IMPRESSION: Impression: 61-year-old female with approximate 2-year history of low back and left lower extremity pain and radicular fashion. MRI scan lumbar spine as noted Arthritis Hypertension COPD Diabetes Plan: Options were discussed with the patient including conservative managements physical therapies and interventional techniques. Patient would like to pursue interventional techniques. We discussed a lumbar epidural steroid injections descriptions as well as anatomical models to describe the procedure. Patient w ill wait for a day when she does not have to return directly to work following her injection and we will reschedule this for approximate 1 week from now. In meantime, patient continue with stretching strength exercises as well as oral analgesics as currently. MARTIN MENDEZ MD October 14, 2021 13:31
== END | disposition home or self-care (01) ==
LOC: PNCL 08:52
PROVIDERS: ATTEND Anesthesiology
DX: M54.50 Low back pain, unspecified (principal); M79.605 Pain in left leg; E11.9 Type 2 diabetes mellitus without complications; M19.90 Unspecified osteoarthritis, unspecified site; I25.10 Atherosclerotic heart disease of native coronary artery without angina pectoris; J43.9 Emphysema, unspecified; K21.9 Gastro-esophageal reflux disease without esophagitis; F41.9 Anxiety disorder, unspecified; F32.9 Major depressive disorder, single episode, unspecified; Z90.710 Acquired absence of both cervix and uterus; Z98.890 Other specified postprocedural states; Z79.899 Other long term (current) drug therapy; Z79.82 Long term (current) use of aspirin; Z79.84 Long term (current) use of oral hypoglycemic drugs; Z87.891 Personal history of nicotine dependence; Z88.0 Allergy status to penicillin; Z88.8 Allergy status to other drugs, medicaments and biological substances
CPT/HCPCS: G0463

== ENCOUNTER → 2021-11-06 | Outpatient (CLI) | payer OTHER ==
--- NOTE | 2021-11-06 17:11 | RAD ---
XR CHEST 2V History: Reason: SHORTNESS OF AIR / Spl. Instructions: / History: Comparison: December 18, 2020 Findings: Hyperinflation. Mild bibasilar linear atelectasis. No consolidation or pleural effusion. Normal heart size. No pneumothorax. Enlarged bilateral pulmonary arteries, unchanged. Impression: 1. Mild bibasilar linear atelectasis. 2. Hyperinflation. Electronically signed by: Galo Lopez DO (11/06/2021 5:08 PM) [id number]
== END ==
LOC: RAD 10:08
PROVIDERS: ATTEND Internal Medicine Pulmonary Disease
DX: J98.11 Atelectasis (principal); I77.89 Other specified disorders of arteries and arterioles; J44.1 Chronic obstructive pulmonary disease with (acute) exacerbation
CPT/HCPCS: 71046

== ENCOUNTER → 2021-11-07 | Outpatient (CLI) | payer OTHER ==
[~2021-11-07] MED LIST changes: +DEXAMETHASONE PRES.FREE 10 MG/ML VIAL. ONE; +IOHEXOL 180 MG/ML 10 ML VIAL. ONE
--- NOTE | 2021-11-07 09:17 | PDOC ---
Progress Note - Pain Clinic Date of Service: DOS: DATE: 11/07/21 TIME: 09:14 Diagnosis: Dx: Lumbar radiculopathy with lumbar degenerative disease and lumbar spondylosis History or Present Illness: HPI: 61-year-old female returns for follow-up after initial evaluation with complaints of low back and left lower extremity pain posterior gluteus posterior lateral thigh lateral anterior thigh anteromedial thigh medial lower leg worse with walking standing patient reports pain still in the low back left lower extremity rated as 8 on scale 10 is worse over the past week 8 on average 8 its least is an 8 today. Patient reports aching and a "pulling" sensation in the left leg and lateral thigh. Patient reports also has new finding of spasms in the low back and some on the right leg as well which she did not have previously. We discussed some gbni-ccl-vafjlyq treatments as well as quinine containing fluids and patient will try this to try and decrease the spasms and cramping especially at night. Patient reports no loss of motor function no bowel or bladder incontinence significant fatigability the lower extremity on the left side with ambulation and standing. Physical Exam: VS: Blood pressure is 111/72 pulse 90 respirations 18 temperature 98.4 F weight is 158 pounds. PE: PHYSICAL EXAMINATION: GENERAL: The patient is awake, alert, oriented, appropriate, very pleasant demeanor HEENT: Shows normocephalic, atraumatic. Extraocular movements are intact and symmetrical. Oral cavity: Mucous membranes moist and pink. Dentition is intact. NECK: Shows anterior throat supple without palpable lymphadenopathy noted. Swallow reflex symmetrical. CHEST: Shows normal on inspection. Breath sounds are clear bilaterally. HEART: Shows S1, S2 clear. No murmurs auscultated. ABDOMEN: Soft, nontender, nondistended. No palpable organomegaly is noted. BACK: Shows spine grossly in the midline. Normal-appearing cervical lordotic curvature. There is mild increased thoracic kyphosis, some mild flattening of the lumbar lordotic curvature. Lumbar paraspinous muscles show symmetrical on inspection, on palpation shows some moderate tenderness diffusely throughout the upper, middle and lower distribution of the paraspinous muscles, but without specific trigger points, without radiation of pain. The patient has good rotational motion of the lumbar spine, both laterally as well as extension and flexion without significant difficulty. EXTREMITIES: Lower extremities show deep tendon reflexes 1+ to in the patellar and tendo calcaneus tendons. Motor exam is 5 on a scale of 5 with right dorsiflexion, extension, quadriceps and hamstring flexion and 4/5 on the left. Peripheral pulses are 1+ posterior tibial. No peripheral edema is noted bilaterally. Lower extremities are warm and dry. SKIN: Shows warm and dry, good turgor. No edema. No sores, rashes or bruising throughout. Procedure: Procedure: Options were discussed with the patient. Patient's old chart was reviewed as her current medication regimen updated current review of systems updated today as well. We will proceed with a lumbar epidural steroid injection today with fluoroscopic guidance. Risks were discussed including but not limited to: Bleeding, infection, possibility of epidural hematoma and subsequent neurological compromise, dural puncture, headaches, spinal cord and/or nerve damage, side effects of steroid medication, and poor results regarding pain control. Patient understands and wished to proceed. Patient will return to the clinic in approximately 2 weeks for follow-up, was counseled as to return appointment, activity level, and side effects to be aware of. Medication Injected: Med Injected: Procedure is lumbar epidural steroid injection under local anesthetic using sterile prep and drape at the L4-5 level using C-arm fluoroscopic guidance in both AP and lateral views medications injected is 20 mg dexamethasone +10mL preservative-free normal saline and 2 mL contrast- condition at discharge is stable patient tolerated procedure well had no complications. Condition at Discharge: Condition at Discharge: Condition at discharge is stable, patient tolerated the procedure well and had no complications. MARTIN MENDEZ MD November 07, 2021 09:17
--- NOTE | 2021-11-07 09:17 | PDOC4 ---
Procedure Note: ICD 10 Code: ICD 10 Code: M54.16 M51.36 7.816 Procedure Note: Patient was consented for lumbar epidural steroid injection with fluoroscopic guidance. Risks were discussed including but not limited to: Bleeding, infection, possibility of epidural hematoma and subsequent neurological compromise, dural puncture, headaches, spinal cord and/or nerve damage, side effects of steroid medication, and poor results regarding pain control. Patient understands and wished to proceed. Procedure is lumbar epidural steroid injection under local anesthetic using st erile prep and drape at the L4-5 level using C-arm fluoroscopic guidance in both AP and lateral views medications injected is 20 mg dexamethasone +10mL preservative-free normal saline and 2 mL contrast- condition at discharge is stable patient tolerated procedure well had no complications. MARTIN MENDEZ MD November 07, 2021 09:17
== END | disposition home or self-care (01) ==
LOC: PNCL 08:14
PROVIDERS: ATTEND Anesthesiology
DX: M51.16 Intervertebral disc disorders with radiculopathy, lumbar region (principal); M47.26 Other spondylosis with radiculopathy, lumbar region; I25.10 Atherosclerotic heart disease of native coronary artery without angina pectoris; I10 Essential (primary) hypertension; E78.00 Pure hypercholesterolemia, unspecified; J43.9 Emphysema, unspecified; E11.9 Type 2 diabetes mellitus without complications; K21.9 Gastro-esophageal reflux disease without esophagitis; M19.90 Unspecified osteoarthritis, unspecified site; F41.9 Anxiety disorder, unspecified; F32.9 Major depressive disorder, single episode, unspecified; Z90.710 Acquired absence of both cervix and uterus; Z98.890 Other specified postprocedural states; Z79.899 Other long term (current) drug therapy; Z79.84 Long term (current) use of oral hypoglycemic drugs; Z79.82 Long term (current) use of aspirin; Z87.891 Personal history of nicotine dependence; Z88.0 Allergy status to penicillin; Z88.6 Allergy status to analgesic agent
CPT/HCPCS: 62323; J1100; Q9965